=== PATIENT | male | born 1945 | race Caucasian/White ===

== ENCOUNTER 2016-06-16 13:31 | Outpatient (CLI) | payer MEDICARE, OTHER | END 2016-06-16 13:32 | disposition home or self-care (01) | DX: I48.91 Unspecified atrial fibrillation (principal) ==

== ENCOUNTER 2016-07-07 08:00 | Outpatient (CLI) | payer MEDICARE, OTHER | END 2016-07-07 23:59 | DX: I48.91 Unspecified atrial fibrillation (principal) ==

== ENCOUNTER 2016-07-18 14:14 | Outpatient (CLI) | payer MEDICARE, OTHER | END 2016-07-18 14:15 | disposition home or self-care (01) | DX: I42.9 Cardiomyopathy, unspecified (principal); I50.23 Acute on chronic systolic (congestive) heart failure; I50.20 Unspecified systolic (congestive) heart failure ==

== ENCOUNTER 2016-08-04 13:34 | Outpatient (CLI) | payer MEDICARE, OTHER | END 2016-08-04 13:35 | disposition home or self-care (01) | DX: I48.91 Unspecified atrial fibrillation (principal) ==

== ENCOUNTER 2016-08-18 13:36 | Outpatient (CLI) | payer MEDICARE, OTHER | END 2016-08-18 23:59 | DX: I48.91 Unspecified atrial fibrillation (principal) ==

== ENCOUNTER 2016-08-28 10:27 | Outpatient (CLI) | payer MEDICARE, OTHER | END 2016-08-28 10:28 | disposition home or self-care (01) | DX: I48.91 Unspecified atrial fibrillation (principal) ==

== ENCOUNTER 2016-09-01 13:50 | Outpatient (CLI) | payer MEDICARE, OTHER | END 2016-09-01 13:51 | disposition home or self-care (01) | DX: I48.91 Unspecified atrial fibrillation (principal) ==

== ENCOUNTER 2016-09-18 14:04 | Outpatient (CLI) | payer MEDICARE, OTHER | END 2016-09-18 23:59 | disposition home or self-care (01) | DX: I48.91 Unspecified atrial fibrillation (principal) ==

== ENCOUNTER 2016-09-25 15:04 | Outpatient (CLI) | payer MEDICARE, OTHER | END 2016-09-25 15:05 | disposition home or self-care (01) | DX: I48.91 Unspecified atrial fibrillation (principal) ==

== ENCOUNTER 2016-09-25 15:56 | Outpatient (CLI) | payer MEDICARE, OTHER | END 2016-09-25 15:57 | disposition critical access hospital (66) | LOC: EMS 15:56 | PROVIDERS: ATTEND Surgery | DX: R06.02 Shortness of breath (principal); R53.1 Weakness | CPT/HCPCS: A0425; A0429 ==

== ENCOUNTER 2016-09-25 16:20 | Emergency (ER) | payer MEDICARE, OTHER ==
[2016-09-25] MEDS ORDERED: IPRATROPIUM/ALBUTEROL 3 ML NEB INH STA (17:20)
[2016-09-25] MEDS ORDERED: IPRATROPIUM/ALBUTEROL 3 ML NEB INH ONE (17:41)
[2016-09-25] MEDS ORDERED: MAGNESIUM SULFATE 2 GRAM 50 ML IV ONE ×2 (18:40→18:45)
[2016-09-25] MEDS ORDERED: FUROSEMIDE 40 MG/4 ML VIAL IVP STA (18:41)
[2016-09-25] MEDS ORDERED: FUROSEMIDE 40 MG/4 ML VIAL ONE (18:44)
[2016-09-25] MEDS ORDERED: AZITHROMYCIN 250 MG TABLET PO STA (19:32)
[2016-09-25] MEDS ORDERED: DEXAMETHASONE 10 MG/ML VIAL IVP STA (19:32)
[2016-09-25] MEDS ORDERED: DEXAMETHASONE 10 MG/ML VIAL ONE (19:35)
[2016-09-25] MEDS ORDERED: AZITHROMYCIN 250 MG TABLET PO ONE (19:35)
== END 2016-09-25 20:29 | disposition home or self-care (01) ==
DX: J44.1 Chronic obstructive pulmonary disease with (acute) exacerbation (principal); R06.02 Shortness of breath; I11.0 Hypertensive heart disease with heart failure; I50.9 Heart failure, unspecified; E78.00 Pure hypercholesterolemia, unspecified; I25.10 Atherosclerotic heart disease of native coronary artery without angina pectoris; I25.2 Old myocardial infarction; G47.30 Sleep apnea, unspecified; E11.9 Type 2 diabetes mellitus without complications; Z79.84 Long term (current) use of oral hypoglycemic drugs; K21.9 Gastro-esophageal reflux disease without esophagitis; M19.90 Unspecified osteoarthritis, unspecified site; Z79.82 Long term (current) use of aspirin; F17.200 Nicotine dependence, unspecified, uncomplicated
CPT/HCPCS: 36415; 71020; 80053; 83690; 83735; 83880; 85025; 85610; 93005; 94640; 96374; 96375; 99284; A9270; J7620

== ENCOUNTER 2016-10-04 13:28 | Outpatient (CLI) | payer MEDICARE, OTHER | END 2016-10-04 13:29 | DX: I48.91 Unspecified atrial fibrillation (principal) ==

== ENCOUNTER 2016-10-11 15:20 | Outpatient (CLI) | payer MEDICARE, OTHER | END 2016-10-11 15:21 | LOC: LAB.N 15:20 | PROVIDERS: ATTEND Nurse Practitioner Gerontology | DX: I48.91 Unspecified atrial fibrillation (principal) | CPT/HCPCS: 85610 ==

== ENCOUNTER 2016-10-19 14:17 | Outpatient (CLI) | payer MEDICARE, OTHER | END 2016-10-19 14:18 | disposition home or self-care (01) | DX: J90 Pleural effusion, not elsewhere classified (principal); I48.91 Unspecified atrial fibrillation ==

== ENCOUNTER 2016-10-19 15:29 | Outpatient (CLI) | payer MEDICARE, OTHER | END 2016-10-19 15:30 | LOC: LAB.N 15:29 | PROVIDERS: ATTEND Nurse Practitioner Gerontology | DX: I48.91 Unspecified atrial fibrillation (principal) | CPT/HCPCS: 71020; 85610 ==

== ENCOUNTER 2016-10-27 13:59 | Outpatient (CLI) | payer MEDICARE, OTHER | END 2016-10-27 14:00 | disposition home or self-care (01) | LOC: LAB.N 13:59 | PROVIDERS: ATTEND Nurse Practitioner Gerontology | DX: I48.91 Unspecified atrial fibrillation (principal) | CPT/HCPCS: 85610 ==

== ENCOUNTER 2016-11-03 13:41 | Outpatient (CLI) | payer MEDICARE, OTHER | END 2016-11-03 13:42 | disposition home or self-care (01) | LOC: LAB.N 13:41 | PROVIDERS: ATTEND Nurse Practitioner Gerontology | DX: I48.91 Unspecified atrial fibrillation (principal) | CPT/HCPCS: 85610 ==

== ENCOUNTER 2016-11-30 13:49 | Outpatient (CLI) | payer MEDICARE, OTHER | END 2016-11-30 13:50 | LOC: LAB.N 13:49 | PROVIDERS: ATTEND Nurse Practitioner Gerontology | DX: I48.91 Unspecified atrial fibrillation (principal) | CPT/HCPCS: 85610 ==

== ENCOUNTER 2016-12-28 11:31 | Outpatient (CLI) | payer MEDICARE, OTHER ==
[2016-12-28 19:09] LABS: BASOPHILS # (AUTO) 0.1 10^3/uL (0.0-0.1); EOSINOPHILS # (AUTO) 0.3 10^3/uL (0.0-0.7); EOSINOPHILS % (AUTO) 3.3 %; HCT - HEMATOCRIT 38.8 % (42.0-52.0); HGB - HEMOGLOBIN 12.1 g/dL (14.0-18.0); LYMPHOCYTES # (AUTO) 1.4 10^3/uL (1.5-3.5); LYMPHOCYTES % (AUTO) 16.4 %; MEAN CORPUSCULAR HEMOGLOBIN 22.5 pg (27.0-31.0); MEAN CORPUSCULAR HGB CONC 31.3 g/dL (32.0-36.0); MEAN PLATELET VOLUME 7.8 fL (7.4-11.4); MONOCYTES # (AUTO) 0.7 10^3/uL (0.0-1.0); MONOCYTES % (AUTO) 8.5 %; NEUTROPHILS % (AUTO) 70.8 %; NUCLEATED RED BLOOD CELLS AUTO 0.1 /100WBC; RED BLOOD COUNT 5.38 10^6/uL (4.70-6.10); UNCORRECTED WHITE BLOOD COUNT 8.5 x10^3/uL; WHITE BLOOD COUNT 8.5 x10^3/uL (4.8-10.8)
[2016-12-28 19:15] LABS: HEMOGLOBIN A1C 1.56 g/dL
[2016-12-28 19:33] LABS: BILIRUBIN,TOTAL 0.4 mg/dL (0.2-1.0); BUN - BLOOD UREA NITROGEN 23 mg/dL (6-20); CALCIUM 9.3 mg/dL (8.5-10.3); CARBON DIOXIDE - CO2 33 mmol/L (21-32); CHLORIDE 95 mmol/L (101-111); CHOL/HDL RATIO 3.3 (<5.0); CHOLESTEROL 111 mg/dL; CREATININE 1.2 mg/dL (0.6-1.2); GFR - MDRD 60 (>89); GLUCOSE 288 mg/dL (70-100); HDL CHOLESTEROL 34 mg/dL; LDL/HDL RATIO 1.1 (<3.6); POTASSIUM 3.9 mmol/L (3.5-5.0); SODIUM 136 mmol/L (135-145); TOTAL PROTEIN 7.5 g/dL (6.7-8.2); TRIGLYCERIDES 201 mg/dL; VLDL CHOLESTEROL 40 mg/dL
== END 2016-12-28 11:32 ==
LOC: LAB.N 11:31
PROVIDERS: ATTEND Nurse Practitioner Gerontology
DX: E11.65 Type 2 diabetes mellitus with hyperglycemia (principal)
CPT/HCPCS: 36415; 80053; 80061; 82043; 83036; 84443; 85025; 85610

== ENCOUNTER 2017-01-24 13:22 | Outpatient (CLI) | payer MEDICARE, OTHER | END 2017-01-24 13:23 | LOC: LAB.N 13:22 | PROVIDERS: ATTEND Nurse Practitioner Gerontology | DX: I48.91 Unspecified atrial fibrillation (principal) | CPT/HCPCS: 85610 ==

== ENCOUNTER 2017-02-13 19:17 | Outpatient (CLI) | payer MEDICARE, OTHER | END 2017-02-13 19:18 | disposition critical access hospital (66) | LOC: EMS 19:17 | PROVIDERS: ATTEND Surgery | DX: R06.02 Shortness of breath (principal); R05 Cough; R53.1 Weakness; R29.6 Repeated falls | CPT/HCPCS: A0425; A0427 ==

== ENCOUNTER 2017-02-13 19:34 | Inpatient (IN) | payer MEDICARE, OTHER ==
[2017-02-13] MEDS ORDERED: SODIUM CHLORIDE FLUSH 0.9% 10 ML SYRINGE IVP ONE ×3 (19:49→22:40)
[2017-02-13] MEDS ORDERED: IPRATROPIUM/ALBUTEROL 3 ML NEB INH STA (20:07)
[2017-02-13] MEDS ORDERED: IPRATROPIUM/ALBUTEROL 3 ML NEB INH ONE ×2 (20:13→21:38)
[2017-02-13] MEDS ORDERED: ALBUTEROL NEB 2.5 MG/3 ML INH STA ×2 (21:23→22:50)
[2017-02-13 22:07] LABS: BASOPHILS # (AUTO) 0.1 10^3/uL (0.0-0.1); BASOPHILS % (AUTO) 1.2 %; EOSINOPHILS # (AUTO) 0.3 10^3/uL (0.0-0.7); EOSINOPHILS % (AUTO) 3.7 %; HCT - HEMATOCRIT 37.2 % (42.0-52.0); HGB - HEMOGLOBIN 11.7 g/dL (14.0-18.0); LYMPHOCYTES # (AUTO) 1.7 10^3/uL (1.5-3.5); LYMPHOCYTES % (AUTO) 18.2 %; MEAN CORPUSCULAR HEMOGLOBIN 22.1 pg (27.0-31.0); MEAN CORPUSCULAR HGB CONC 31.4 g/dL (32.0-36.0); MEAN CORPUSCULAR VOLUME 70.4 fL (80.0-94.0); MEAN PLATELET VOLUME 7.2 fL (7.4-11.4); MONOCYTES # (AUTO) 0.6 10^3/uL (0.0-1.0); MONOCYTES % (AUTO) 6.7 %; NEUTROPHILS # (AUTO) 6.5 10^3/uL (1.5-6.6); NEUTROPHILS % (AUTO) 70.2 %; RED BLOOD COUNT 5.29 10^6/uL (4.70-6.10); UNCORRECTED WHITE BLOOD COUNT 9.3 x10^3/uL; WHITE BLOOD COUNT 9.3 x10^3/uL (4.8-10.8)
[2017-02-13 22:11] LABS: BILIRUBIN,TOTAL 0.4 mg/dL (0.2-1.0); CALCIUM 9.1 mg/dL (8.5-10.3); CREATININE 0.9 mg/dL (0.6-1.2); MAGNESIUM 1.4 mg/dL (1.7-2.8); POTASSIUM 3.9 mmol/L (3.5-5.0); TOTAL PROTEIN 7.1 g/dL (6.7-8.2)
--- NOTE | 2017-02-13 22:16 | XRAY Preliminary Report ---
Exam: XR Chest 1 View IMPRESSION: Chronic findings. No acute disease. [facility] SITE ID: [id number]
--- NOTE | 2017-02-13 22:16 | XRAY Report ---
EXAM: CHEST RADIOGRAPHY EXAM DATE: 02/13/2017 08:55 PM. CLINICAL HISTORY: Short of breath. COMPARISON: 09/25/2016. TECHNIQUE: 1 view. FINDINGS: Lungs/Pleura: No definite localized infiltrate, consolidation, effusion, or pneumothorax. Mediastinum: Mild cardiomegaly, unchanged. Upper lobe vessels not distended. Other: Permanent pacemaker on the left with intact leads. Status post median sternotomy. Tracheostomy in place. Degenerative changes. IMPRESSION: Chronic findings. No acute disease. [facility] Referring Provider Line: [phone] SITE ID: [id number]
[2017-02-13] MEDS ORDERED: AZITHROMYCIN INJ 500 MG in SODIUM CHLORIDE 0.9% 250 ML IV STA (22:20)
[2017-02-13] MEDS ORDERED: DEXAMETHASONE 10 MG/ML VIAL IVP STA (22:20)
[2017-02-13] MEDS ORDERED: cefTRIAXone 1 GM VIAL IVP STA (22:20)
[2017-02-13] MEDS ORDERED: DEXAMETHASONE 10 MG/ML VIAL ONE (22:32)
[2017-02-13] MEDS ORDERED: cefTRIAXone 1 GM VIAL ONE (22:32)
--- NOTE | 2017-02-13 22:42 | ED Physician Documentation ---
PD HPI URI - Stated complaint Stated Complaint: SOA - Chief complaint Chief Complaint: Resp - History obtained from History obtained from: Patient, EMS - History of Present Illness Timing - onset: How many weeks ago (2 weeks of cough, myalgias, increased wheezing and dypsnea, much worse the past 2-3 days. With stein/white sputum now, some clogging at times of his trach. Has had trouble breathing the past 2 hours. Has used home MDI without improvement.) Timing duration: Days Timing details: Gradual onset, Still present Associated symptoms: Fever, Chills, Productive cough, Dyspnea, Bilateral edema. No: Sore throat, Hemoptysis, NVD, Unilateral edema Contributing factors: COPD / asthma. No: Sick contact, Travel, Immunocompromised Improves by: No: Rest Worsened by: Activity, Breathing Similar symptoms before: Diagnosis (bronchitis, COPD, pneumonia. He says he has not really had CHF but does have history of prior CABG.) Recently seen: Not recently seen Review of Systems Ten Systems: 10 systems reviewed and negative Constitutional: reports: Chills, Myalgias, Fatigue Nose: reports: Congestion Throat: denies: Sore throat Cardiac: reports: Pedal edema (chronic). denies: Chest pain / pressure, Palpitations, Calf pain Respiratory: reports: Dyspnea, Cough, Wheezing GI: denies: Abdominal Pain, Nausea, Vomiting, Diarrhea Musculoskeletal: reports: Extremity swelling Neurologic: reports: Generalized weakness (for several days, worsening.). denies: Focal weakness, Numbness, Near syncope Endocrine: denies: Weight loss Immunocompromised: denies: Immunocompromised PD PAST MEDICAL HISTORY - Past Medical History Cardiovascular: Hypertension, High cholesterol, Coronary artery disease, [place] Respiratory: COPD, Shortness of breath, Sleep apnea, Other (prior pharyngeal surgery with trach chronically. ) Neuro: None Endocrine/Autoimmune: Type 2 diabetes GI: GERD : None HEENT: Other Psych: None Musculoskeletal: Osteoarthritis Derm: None - Past Surgical History Past Surgical History: Yes General: Other Cardiovascular: CABG HEENT: Cataracts, Tracheostomy - Present Medications Home Medications: Ambulatory Orders Medication Instructions Recorded Confirmed Aspirin Chewable [St Pola 81 mg PO DAILY 10/15/12 06/10/13 Aspirin] Metformin HCl 1,000 mg PO BID 10/15/12 06/10/13 Methocarbamol 500 mg PO TID PRN 10/15/12 06/10/13 Metoprolol Tartrate 100 mg PO BID 10/15/12 06/10/13 Trazodone HCl 25 mg PO HS 10/15/12 06/10/13 glipiZIDE [Glucotrol] 15 mg PO BID 10/15/12 06/10/13 Atorvastatin Calcium [Lipitor] 80 mg PO HS 04/29/13 06/10/13 Omeprazole [PriLOSEC] 10 mg PO QDAC 04/29/13 06/10/13 oxyCODONE/ACET 5/325 [Percocet 5 1 each PO BID PRN 04/29/13 06/10/13 mg/325 mg] Budesonide/Formoterol Fumarate 2 puffs IH BID 06/10/13 06/10/13 [Symbicort 160-4.5 Mcg Inhaler] Ipratropium/Albuterol [Duoneb] 3 ml INH Q6H 06/10/13 06/10/13 Losartan [Cozaar] 50 mg PO DAILY 06/10/13 06/10/13 Azithromycin [Zithromax] 250 mg PO DAILY #6 tablet 09/25/16 Dexamethasone [Decadron] 4 mg PO DAILY #5 tablet 09/25/16 Magnesium Oxide [Mag Ox] 400 mg PO DAILY #15 tablet 09/25/16 - Allergies Allergies/Adverse Reactions: Allergies Allergy/AdvReac Type Severity Reaction Status Date / Time No Known Drug Allergies Allergy Verified 06/10/13 15:20 - Living Situation Living Situation: reports: Alone Living Arrangement: reports: At home - Social History Does the pt smoke?: Yes Smoking Status: Current every day smoker Does the pt drink ETOH?: No Does the pt have substance abuse?: No - Family History Family history: reports: Non contributory - POLST Patient has POLST: No PD ED PE NORMAL - Vitals Vital signs reviewed: Yes - General General: Alert and oriented X 3, Well developed/nourished, Other (has increased work of breathing with wheezing, coughing with stein/white sputum per trach. Some hoarseness of voice. ) - HEENT HEENT: Ears normal, Pharynx benign - Neck Neck: Supple, no meningeal sign, No adenopathy, No JVD - Cardiac Cardiac: RRR, No murmur - Respiratory Respiratory: No: Clear bilaterally (some coarse sounds right side mid lung taylor. Diffuse wheezing and tight sounds. No wet sounds at bases. ) - Abdomen Abdomen: Normal bowel sounds, Soft, Non tender - Male Male : Deferred - Rectal Rectal: Deferred - Back Back: No CVA TTP - Derm Derm: Normal color, Warm and dry - Extremities Extremities: No calf tenderness / cord, Other (1+ edema in both lower legs and ankles. ) - Neuro Neuro: Alert and oriented X 3, legal nurse consultant 2-12 intact, No sensory deficit, Other ( general weakness with 4/5 motor diffusely. ) - Psych Psych: Normal mood Results - Vitals Vitals: Vital Signs - 24 hr 02/13/17 19:35 Temperature 36.8 C Heart Rate 71 Respiratory 25 H Rate Blood Pressure 167/79 H O2 Saturation 93 Oxygen O2 Source Room air - Labs Labs: Laboratory Tests 02/13/17 21:22 WBC 9.3 RBC 5.29 Hgb 11.7 L Hct 37.2 L MCV 70.4 L MCH 22.1 L MCHC 31.4 L RDW 19.0 H Plt Count 341 MPV 7.2 L Neut # 6.5 Lymph # 1.7 [place] # 0.6 Eos # 0.3 Baso # 0.1 Absolute Nucleated RBC 0.00 Nucleated RBC % 0.0 - Rads (name of study) chest Radiology: Prelim report reviewed, EMP read contemporaneously (chronic changes, no acute infiltrates nor signs of pulmonary edema. ) PD MEDICAL DECISION MAKING - ED course Complexity details: reviewed results, re-evaluated patient (improved work of breathing after nebs, and able to be more comfortable. Still with stein/white sputum from trach with coughing. General weakness. Will need to be in hospital until improving with nebs/steroids/suction PRN, and given history of COPD with infection, also gave abx for increased probability of bacterial infection. ), considered differential, d/w patient, d/w business transformation consultant (Dr. Velázquez, hospitalist, who will see patient. ) Departure - Departure Disposition: ED Place in Observation Clinical Impression: Acute exacerbation of COPD with asthma, Bronchitis Condition: Stable Record reviewed to determine appropriate education?: Yes
[2017-02-13] MEDS ORDERED: METHOCARBAMOL 500 MG TABLET PO PRN (22:43)
[2017-02-13] MEDS ORDERED: ONDANSETRON 4 MG/2 ML VIAL IVP PRN (22:45)
[2017-02-13] MEDS ORDERED: oxyCODONE 5 MG TABLET PO PRN ×2 (22:45)
[2017-02-13] MEDS ORDERED: PROCHLORPERAZINE 10 MG/2 ML VIAL IVP PRN (22:45)
[2017-02-13] MEDS ORDERED: ACETAMINOPHEN 325 MG TABLET PO PRN (22:45)
[2017-02-13] MEDS: BUDESONIDE 0.5 MG/2 ML NEB INH SCH (23:00)
[2017-02-13] MEDS: IPRATROPIUM/ALBUTEROL 3 ML NEB INH SCH (23:00)
[2017-02-13] MEDS: FORMOTEROL FUMARATE NEB 20 MCG/2 ML INH SCH (23:00)
[2017-02-13] MEDS ORDERED: MAGNESIUM SULFATE 2 GRAM 2 GM/50 ML BAG IV SCH (23:16)
--- NOTE | 2017-02-13 23:32 | HISTORY & PHYSICAL EXAMINATION ---
Chief Complaint - Chief Complaint Chief Complaint: Generalized weakness History of Present Illness - Admitted From Admitted From:: Emergency Department - History Obtained From Records Reviewed: Yes History obtained from: Patient Exam Limitations: None - History of Present Illness HPI Comment/Other: Patient is a 71-year-old gentleman with a past medical history significant for hypertension, hyperlipidemia, coronary artery disease status post CABG, congestive heart failure with ejection fraction of 20% on last echo in 2013, COPD on 2-3 L of oxygen at night, history of laryngeal cancer status post tracheostomy, obstructive sleep apnea, diabetes and osteoarthritis who presented to the emergency department with a chief complaint of generalized weakness. The patient states that he was in his normal state of health until the last couple of days where he has been feeling increasingly weak. He states that he is fallen in his house several times. He states that he continues to lose his balance and has had poor coordination and difficulty walking. He also states that over the last 1-2 months he has had a chronic cough which has been worsening over the last few days. He also states that he has been short of air for about a month and this comes and goes but has been getting increasingly bad in the last 2 days. The patient denies any fevers or chills. He denies any headaches, blurred vision, runny nose, sore throat, chest pain, orthopnea, increased lower extremity swelling, abdominal pain, nausea, vomiting, diarrhea, urinary urgency, urinary frequency, dysuria, he admits to pain in his left hip but no other joint pains, muscle aches, joint swelling, changes in his appetite , weight loss or any focal neurologic deficits. On presentation to the emergency department the patient was afebrile he was hypertensive with a blood pressure of 167/79, he was tachypneic and he was saturating about 93% on room air. The patient did appear to be in some respiratory distress as he was quite tachypneic and was coughing up bringing up grayish white sputum in his trach. The patient underwent routine lab work which showed a normal WBC and normal electrolytes aside from a slightly decreased magnesium. On examination the patient was found to have profuse wheezing and was tachypneic with productive cough. The patient underwent a chest x-ray which showed no acute process. The patient was given several DuoNeb treatments, Decadron and a dose of antibiotics with ceftriaxone but he had only minimal improvement in his symptoms therefore he was placed in observation for COPD exacerbation and generalized weakness. History - Past Medical History Cardiovascular: reports: Congestive heart failure, Hypertension, High cholesterol, Coronary artery disease (Status post CABG in 04/2012), [place] Respiratory: reports: COPD, Shortness of breath, Sleep apnea, CPAP use, Other ( prior laryngeal surgery with trach chronically. ) Neuro: reports: None Endocrine/Autoimmune: reports: Type 2 diabetes GI: reports: GERD : reports: None HEENT: reports: Other Psych: reports: None Musculoskeletal: reports: Osteoarthritis Derm: reports: None MRSA Hx?: No Other Past Medical History: Laryngeal Cancer - Past Surgical History General: reports: Other Cardiovascular: reports: CABG HEENT: reports: Cataracts, Tracheostomy - Family & Social History Family History Comment/Other: Patient adopted and children are healthy Living arrangement: At home Living Situation: Alone Social History Notes: Patient states that he lives alone in [place] at a [facility]. He has 2 children 1 of whom lives in the area and the other one lives in [place]. The patient is , he states his in 2000 and currently he is alone and takes care of himself. He states he is able to care for his own trach and does not have any caregivers or but does have somebody help in cleaning the home. The patient states that he smokes 1-1-1/2 packs of cigarettes a day and has been smoking for over 50 years. He denies any alcohol or drug use. - Substance History Use: Uses substance without health or social issues: Tobacco Abuse: Recurrent use of substance despite neg consequences: NONE Dependence: Experiences withdrawal or developed tolerances: NONE Tobacco Details: Cigarettes - POLST Patient has POLST: No POLST Status: Full Code Meds/Allgy - Home Medications Home Medications: Ambulatory Orders Medication Instructions Recorded Confirmed Aspirin Chewable [St Pola 81 mg PO DAILY 10/15/12 06/10/13 Aspirin] Metformin HCl 1,000 mg PO BID 10/15/12 06/10/13 Methocarbamol 500 mg PO TID PRN 10/15/12 06/10/13 Metoprolol Tartrate 100 mg PO BID 10/15/12 06/10/13 Trazodone HCl 25 mg PO HS 10/15/12 06/10/13 glipiZIDE [Glucotrol] 15 mg PO BID 10/15/12 06/10/13 Atorvastatin Calcium [Lipitor] 80 mg PO HS 04/29/13 06/10/13 Omeprazole [PriLOSEC] 10 mg PO QDAC 04/29/13 06/10/13 oxyCODONE/ACET 5/325 [Percocet 5 1 each PO BID PRN 04/29/13 06/10/13 mg/325 mg] Budesonide/Formoterol Fumarate 2 puffs IH BID 06/10/13 06/10/13 [Symbicort 160-4.5 Mcg Inhaler] Ipratropium/Albuterol [Duoneb] 3 ml INH Q6H 06/10/13 06/10/13 Losartan [Cozaar] 50 mg PO DAILY 06/10/13 06/10/13 Azithromycin [Zithromax] 250 mg PO DAILY #6 tablet 09/25/16 Dexamethasone [Decadron] 4 mg PO DAILY #5 tablet 09/25/16 Magnesium Oxide [Mag Ox] 400 mg PO DAILY #15 tablet 09/25/16 - Allergies Allergies/Adverse Reactions: Allergies Allergy/AdvReac Type Severity Reaction Status Date / Time No Known Drug Allergies Allergy Verified 06/10/13 15:20 Review of Systems - Other Findings Other Findings: A comprehensive review of systems was performed the pertinent positives and negatives are stated above in the HPI and the remainder of the review of systems is negative. Exam - Vital Signs Vital Signs: Vital Signs x48h Temp Pulse Resp BP Pulse Ox 02/13/17 19:35 36.8 C 71 25 H 167/79 H 93 - Physical Exam General Appearance: positive: Alert, Mild distress (Tachypneic appear short of breath), Other (Patient has a trach) Eyes Bilateral: positive: Normal inspection, PERRL, EOMI, No lid inflammation, No scleral icterus ENT: positive: ENT inspection nml, Pharynx nml, No signs of dehydration. negative: Purulent nasal drainage, Pharyngeal erythema, Oral lesions Neck: positive: Nml inspection, Thyroid nml, No JVD, Trachea midline, Other ( Trach in place). negative: Thyromegaly, Lymphadenopathy (R), Lymphadenopathy (L ) Respiratory: positive: Chest non-tender, Wheezes (Diffuse, Expiratory), Rales ( At the bases), Other (Tachypneic and in mild respiratory distress). negative: Rhonchi Cardiovascular: positive: Regular rate & rhythm, No murmur, No gallop Peripheral Pulses: positive: 2+ Abdomen: positive: Non-tender, No organomegaly, Nml bowel sounds, No distention. negative: Guarding, Rebound, Hepatomegaly Back: positive: Nml inspection. negative: CVA tenderness (R), CVA tenderness (L ) Skin: positive: Color nml, No rash, Dry. negative: Cyanosis, Pallor Extremities: positive: Non-tender, Full ROM, Nml appearance, Pedal edema ( Bilateral 1+) Neurologic/Psychiatric: positive: Oriented x3, CN's nml (2-12), Motor nml, Sensation nml, Mood/affect nml Conclusion/Plan - Problem List (1) COPD exacerbation Conclusion/Plan: On presentation the patient was tachypneic, coughing with sputum production and wheezing on examination. Etiology of patient's COPD exacerbation appears to be a URI as the patient has been having increasing cough with sputum production and shortness of air for the last several days. In conjunction with this the patient is also had generalized weakness and had multiple falls at home. The patient's chest x-ray did not reveal a infiltrate to suggest a pneumonia. The patient did not have fever or leukocytosis. Patient likely has a URI that is causing his generalized weakness and this COPD exacerbation. Despite several nebulizer treatments in the emergency department and steroids patient did not have significant improvement in his symptoms and therefore was placed in observation. Plan: Duo nebs around the clock 24 hours and as needed Solu-Medrol 40 mg IV 3 times daily Azithromycin p.o. daily Supplemental oxygen as needed Pulmicort and formoterol twice daily (2) Generalized weakness Conclusion/Plan: Patient presented with generalized weakness at home. The patient states that he is fallen 3 times in the last 24 hours. He states that is due to him losing his balance and having poor coordination. The patient did not appear to have any focal neurologic deficits on presentation. He had no leukocytosis or fevers. The patient did appear to have a COPD exacerbation and appeared to likely have an upper respiratory infection. Patient is likely become weak due to his upper respiratory infection and shortness of air from COPD exacerbation. Plan: Patient will be assessed by physical therapy in the morning the patient does use a walker at home but has been having difficulties and falling recently. We suspect this is likely due to his ongoing infection but would like a full assessment from physical therapy. If the patient's balance and weakness does not improve with treatment of his COPD then we will need to consider a CT scan of his head. The patient does not appear to be dehydrated and given his history of CHF we will hold off on giving any IV fluid. (3) Diabetes Conclusion/Plan: The patient has a history of diabetes and is on oral medications at home. On presentation patient's blood glucose is 109 which is well controlled. Plan: Patient was placed on sliding scale insulin while he is hospitalized Patient was placed on a diabetic diet We will monitor patient's blood glucose before meals nightly We will check a hemoglobin A1c Qualifiers: Diabetes mellitus type: type 2 Diabetes mellitus complication status: without complication Diabetes mellitus terminal supervisor insulin use: without terminal supervisor use Qualified Code(s): E11.9 - Type 2 diabetes mellitus without complications (4) Hypomagnesemia Conclusion/Plan: The patient's magnesium is low on presentation We will replace patient's magnesium and continue to monitor. (5) Hypertension Conclusion/Plan: Patient's blood pressure is elevated on presentation. Patient is on Cozaar and metoprolol at home. Plan: We will continue patient's home medications while he is hospitalized Continue to monitor blood pressure closely Qualifiers: Hypertension type: essential hypertension Qualified Code(s): I10 - Essential (primary) hypertension (6) Congestive heart failure Conclusion/Plan: Patient has history of congestive heart failure he had an echo done in 2013 which showed an ejection fraction of 20%. Patient is on optimal medications with Cozaar and metoprolol Patient does not appear to be in congestive heart failure exacerbation as he has no evidence of CHF on his chest x-ray, only minimal crackles at the bases on examination and only mild edema on exam. Plan: We will get an echocardiogram in the morning as he does not have an echo in our system since 2013 Continue losartan and metoprolol Monitor closely Qualifiers: Congestive heart failure type: systolic Congestive heart failure chronicity : chronic Qualified Code(s): I50.22 - Chronic systolic (congestive) heart failure (7) History of coronary artery disease Conclusion/Plan: Patient has history of coronary artery disease status post CABG Patient is not having any chest pain and appears to be stable Patient is on optimal treatment with aspirin, statin, metoprolol and losartan Continue home medications. (8) Prophylactic use of low molecular weight heparin for venous thromboembolism (VTE) Conclusion/Plan: Patient was placed on Lovenox while he is hospitalized for DVT prophylaxis. - Lab Results Lab results reviewed: Yes Fish Bones: 02/13/17 21:22 02/13/17 21:47 Other Lab Results: Laboratory Results WBC 9.3 x10^3/uL (4.8-10.8) 02/13/17 21: RBC 5.29 10^6/uL (4.70-6.10) 02/13/17 21:22 Hgb 11.7 g/dL (14.0-18.0) L 02/13/17 21: Hct 37.2 % (42.0-52.0) L 02/13/17 21:22 MCV 70.4 fL (80.0-94.0) L 02/13/17 21:22 MCH 22.1 pg (27.0-31.0) L 02/13/17 21: MCHC 31.4 g/dL (32.0-36.0) L 02/13/17 21:22 RDW 19.0 % (12.0-15.0) H 02/13/17 21:22 Plt Count 341 10^3/uL (130-450) 02/13/17 21:22 MPV 7.2 fL (7.4-11.4) L 02/13/17 21:22 Neut # 6.5 10^3/uL (1.5-6.6) 02/13/17 21: Lymph # 1.7 10^3/uL (1.5-3.5) 02/13/17 21:22 [place] # 0.6 10^3/uL (0.0-1.0) 02/13/17 21:22 Eos # 0.3 10^3/uL (0.0-0.7) 02/13/17 21:22 Baso # 0.1 10^3/uL (0.0-0.1) 02/13/17 21:22 Absolute Nucleated RBC 0.00 x10^3/uL 02/13/17 21:22 Nucleated RBC % 0.0 /100WBC 02/13/17 21:22 Sodium 137 mmol/L (135-145) 02/13/17 21:47 Potassium 3.9 mmol/L (3.5-5.0) 02/13/17 21:47 Chloride 100 mmol/L (101-111) L 02/13/17 21:47 Carbon Dioxide 28 mmol/L (21-32) 02/13/17 21:47 Anion Gap 9.0 (6-13) 02/13/17 21:47 BUN 13 mg/dL (6-20) 02/13/17 21:47 Creatinine 0.9 mg/dL (0.6-1.2) 02/13/17 21:47 Estimated GFR (MDRD) 83 (>89) L 02/13/17 21:47 Glucose 109 mg/dL (70-100) H 02/13/17 21:47 Lactic Acid 1.2 mmol/L (0.5-2.2) 02/13/17 21:47 Calcium 9.1 mg/dL (8.5-10.3) 02/13/17 21:47 Magnesium 1.4 mg/dL (1.7-2.8) L 02/13/17 21:47 Total Bilirubin 0.4 mg/dL (0.2-1.0) 02/13/17 21:47 AST 22 IU/L (10-42) 02/13/17 21:47 ALT 20 IU/L (10-60) 02/13/17 21:47 Alkaline Phosphatase 65 IU/L (42-121) 02/13/17 21:47 B-Natriuretic Peptide 90 pg/mL (5-100) 02/13/17 21:47 Total Protein 7.1 g/dL (6.7-8.2) 02/13/17 21:47 Albumin 3.5 g/dL (3.2-5.5) 02/13/17 21:47 Globulin 3.6 g/dL (2.1-4.2) 02/13/17 21:47 Albumin/Globulin Ratio 1.0 (1.0-2.2) 02/13/17 21:47 Lipase 31 U/L (22-51) 02/13/17 21:47 - Diagnostic Imaging Results Diagnostic Imaging Results: positive: Final report reviewed Diagnostic Imaging Results Comments: Chest x-ray Impression: Chronic findings, no acute disease. Issues/Core Measures - Anticipated LOS Anticipated Stay Length: Less than 2 midnights - DVT/VTE - Prophylaxis VTE/DVT Prophylaxis med ordered at admit?: Yes
[2017-02-14] MEDS: traZODone 50 MG TABLET PO SCH ×2 (00:56→21:37)
[2017-02-14 05:42] LABS: BASOPHILS % (AUTO) 0.7 %; EOSINOPHILS % (AUTO) 0.1 %; HCT - HEMATOCRIT 38.5 % (42.0-52.0); HGB - HEMOGLOBIN 11.8 g/dL (14.0-18.0); LYMPHOCYTES # (AUTO) 0.4 10^3/uL (1.5-3.5); LYMPHOCYTES % (AUTO) 5.8 %; MEAN CORPUSCULAR HEMOGLOBIN 21.9 pg (27.0-31.0); MEAN CORPUSCULAR HGB CONC 30.8 g/dL (32.0-36.0); MEAN CORPUSCULAR VOLUME 71.1 fL (80.0-94.0); MEAN PLATELET VOLUME 7.2 fL (7.4-11.4); MONOCYTES # (AUTO) 0.1 10^3/uL (0.0-1.0); MONOCYTES % (AUTO) 1.2 %; NEUTROPHILS # (AUTO) 5.8 10^3/uL (1.5-6.6); NEUTROPHILS % (AUTO) 92.2 %; RED BLOOD COUNT 5.41 10^6/uL (4.70-6.10); RED CELL DISTRIBUTION WIDTH 19.3 % (12.0-15.0); UNCORRECTED WHITE BLOOD COUNT 6.3 x10^3/uL; WHITE BLOOD COUNT 6.3 x10^3/uL (4.8-10.8)
[2017-02-14 05:49] LABS: CALCIUM 8.7 mg/dL (8.5-10.3); CREATININE 0.8 mg/dL (0.6-1.2); POTASSIUM 4.4 mmol/L (3.5-5.0)
[2017-02-14] MEDS: methylPREDNISolone SUCCINATE 40 MG/ML VIAL IVP SCH ×3 (06:16→21:37)
[2017-02-14] MEDS: SODIUM CHLORIDE FLUSH 0.9% 10 ML SYRINGE IVP SCH ×3 (06:16→16:12)
[2017-02-14] MEDS: IPRATROPIUM/ALBUTEROL 3 ML NEB INH SCH ×4 (07:16→21:50)
[2017-02-14] MEDS: BUDESONIDE 0.5 MG/2 ML NEB INH SCH ×2 (07:16→21:50)
[2017-02-14] MEDS: FORMOTEROL FUMARATE NEB 20 MCG/2 ML INH SCH ×2 (07:16→21:50)
[2017-02-14 07:59] LABS: HEMOGLOBIN A1C 1.42 g/dL
[2017-02-14] MEDS ORDERED: INSULIN ASPART 300 UNIT/3 ML PEN SUBQ SCH ×3 (08:00→17:00)
[2017-02-14] MEDS: ASPIRIN CHEW 81 MG TABLET PO SCH (08:45)
[2017-02-14] MEDS: MAGNESIUM OXIDE 400 MG TABLET PO SCH (08:46)
[2017-02-14] MEDS: METOPROLOL TARTRATE 50 MG TABLET PO SCH ×2 (08:46→21:36)
[2017-02-14] MEDS: LOSARTAN 50 MG TABLET PO SCH (08:46)
[2017-02-14] MEDS: ENOXAPARIN 40 MG/0.4 ML SYRINGE SUBQ SCH (08:47)
[2017-02-14] MEDS: FAMOTIDINE 20 MG TABLET PO SCH (08:47)
[2017-02-14] MEDS: POLYETHYLENE GLYCOL 3350 17 GM PACKET PO SCH (08:55)
[2017-02-14] MEDS ORDERED: AZITHROMYCIN 250 MG TABLET PO SCH (09:00)
[2017-02-14 14:47] LABS: BILIRUBIN,URINE NEGATIVE (NEGATIVE)
[2017-02-14 14:56] LABS: WBC,URINE 0-3 /HPF (0-3)
[2017-02-14 14:57] LABS: UR CULTURE IF IND NOT INDICATED
--- NOTE | 2017-02-14 15:18 | PROVIDER PROGRESS NOTE ---
Assessment/Plan - Problem List (1) COPD exacerbation Assessment/Plan: The patient feels no better since placed in OBS and started on iv steroids and inhalers and supplemental O2 His exam shows marked bronchospasm and cannot R/O cardiac asthma Will change Pt to inpatient, continue O2 and steroids and inhalers Will change po zithromax to iv, higher dose and add iv Ceftriaxone for sputum sample (+) for GNB and GPC Recheck CXR (2) Congestive heart failure Qualifiers: Congestive heart failure type: systolic Congestive heart failure chronicity : chronic Qualified Code(s): I50.22 - Chronic systolic (congestive) heart failure Assessment/Plan: The LVEF was 20% by Echo done several mos ago. 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: without terminal computer operator use Qualified Code(s): E11.9 - Type 2 diabetes mellitus without complications Assessment/Plan: Higher fingerstick glu results since on high dose iv steroids Will increase to moderate SS Insulin coverage and continue diet and his po diabetic meds (5) Hypomagnesemia Assessment/Plan: Corrected with replacement Since Lsix to start, will follow Mg level (6) Hypertension Qualifiers: Hypertension type: essential hypertension Qualified Code(s): I10 - Essential (primary) hypertension Assessment/Plan: Stable on current meds (7) History of coronary artery disease Assessment/Plan: No c/o angina but will check troponins since Diabetics get silent MIs Follow EKG for changes - Current Meds Current Meds: Current Medications Generic Name Dose Route Start Last Admin Trade Name Freq PRN Reason Stop Dose Admin Albuterol/Ipratropium 3 ml 02/13/17 23:00 02/14/17 07:16 Duoneb INH 02/14/17 22:59 3 ml RTQID RONA Administration Aspirin 81 mg 02/14/17 09:00 02/14/17 08:45 [place] Aspirin PO 81 mg DAILY RONA Administration Budesonide 0.5 mg 02/13/17 23:00 02/14/17 07:16 Pulmicort INH 0.5 mg RTBID RONA Administration Enoxaparin Sodium 40 mg 02/14/17 09:00 02/14/17 08:47 Lovenox SUBQ 40 mg DAILY RONA Administration Famotidine 20 mg 02/14/17 09:00 02/14/17 08:47 Pepcid PO 20 mg DAILY RONA Administration Formoterol Fumarate 20 mcg 02/13/17 23:00 02/14/17 07:16 Perforomist INH 20 mcg RTBID RONA Administration Insulin Aspart 1 - 9 unit 02/14/17 12:00 02/14/17 11:29 Novolog SUBQ 10 unit 0800,1200,1700,2100 RONA Administration Protocol Losartan Potassium 50 mg 02/14/17 09:00 02/14/17 08:46 Cozaar PO 50 mg DAILY RONA Administration Magnesium Oxide 400 mg 02/14/17 09:00 02/14/17 08:46 Mag Ox PO 400 mg DAILY RONA Administration Methylprednisolone 40 mg 02/14/17 06:00 02/14/17 14:23 Solu-Medrol (40mg Vial) IVP 40 mg TID RONA Administration Metoprolol Tartrate 100 mg 02/14/17 09:00 02/14/17 08:46 Lopressor PO 100 mg BID RONA Administration Polyethylene Glycol 17 gm 02/14/17 09:00 02/14/17 08:55 Miralax PO Not Given DAILY RONA Sodium Chloride 10 ml 02/14/17 06:00 02/14/17 14:23 Normal Saline Flush 0.9% IVP 10 ml Q8HR RONA Administration Trazodone HCl 25 mg 02/13/17 23:00 02/14/17 00:56 Desyrel PO 25 mg HS RONA Administration - Lab Result Fish Bone Diagrams: 02/14/17 05:20 02/14/17 05:20 - Additional Planning My Orders: My Active Orders 02/14/17 BNP - B-NATRIURETIC PEPTIDE [IAI] Routine 02/14/17 11:23 Blood Glucose Checks - Eating [RC] 0800,1200,1700,2100 Initiate Hypoglycemia Protocol [RC] .protocol 02/14/17 12:00 Insulin Aspart [NovoLOG] 1 - 9 unit SUBQ 0800,1200,1700,2100 02/14/17 15:00 TROPONIN I [IAI] Q6H 02/14/17 15:03 ED Orthostatic VS ONCE 02/14/17 16:00 Azithromycin Inj [Zithromax Inj] 500 mg Sodium Chloride 0.9% [Normal Saline 0.9%] 250 ml IV DAILY FUROSEMIDE INJ 20mg VIAL [LASIX INJ 20mg VIAL] 20 mg IVP BIDDIURETIC cefTRIAXone [Rocephin] 1 gm Sodium Chloride 0.9% Minibag [Normal Saline 0.9% Minibag] 100 ml IV DAILY 02/14/17 21:00 TROPONIN I [IAI] Q6H 02/15/17 05:00 BNP - B-NATRIURETIC PEPTIDE [IAI] Routine Subjective - Subjective Patient Reports: Cough, Dizzines, Shortness of Breath Nursing Reports: Shortness of Breath, Other (Glu in 400's since on iv steroids) Objective Vital Signs: Vital Signs - 24 hr 02/13/17 02/14/17 02/14/17 23:15 00:04 04:23 Temperature 37.0 C 36.8 C Heart Rate 65 Heart Rate [ 78 75 Brachial] Respiratory 18 18 18 Rate Blood Pressure Blood Pressure 115/40 L 120/52 L [Right Brachial artery] Blood Pressure [Supine] O2 Saturation 96 96 02/14/17 02/14/17 02/14/17 07:24 08:17 08:46 Temperature 36.8 C Heart Rate 68 Heart Rate [ 69 Brachial] Respiratory 16 20 Rate Blood Pressure 136/93 H Blood Pressure 136/93 H [Right Brachial artery] Blood Pressure [Supine] O2 Saturation 93 02/14/17 10:10 Temperature Heart Rate Heart Rate [ Brachial] Respiratory Rate Blood Pressure Blood Pressure [Right Brachial artery] Blood Pressure 145/72 H [Supine] O2 Saturation Oxygen O2 Source trach mask I&O (Last 24 Hrs): Intake and Output Totals x24h 02/12/17 02/13/17 02/14/17 23:59 23:59 23:59 Intake Total 480 Output Total 525 Balance -45 General: Moderate distress (Respiratory) HEENT: Mucous membr. moist/pink Neck: Other (Trach site clean On O2 via trach mask) Neuro: Alert Cardiovascular: Regular rate, Other (1-2/6 systolic murmur at base, honking No gallop or RV heave) Respiratory: Wheezes, Other (Very tight, minimal air entry) Abdomen: Other (Obese, cannot R/O organomegaly or ascites) Extremities: Other (1+ edema to knees No venous changes Very pale Tender over L thigh, no ecchymosis or sores) - Results Results: Laboratory Results WBC 6.3 x10^3/uL (4.8-10.8) 02/14/17 05:20 RBC 5.41 10^6/uL (4.70-6.10) 02/14/17 05:20 Hgb 11.8 g/dL (14.0-18.0) L 02/14/17 05:20 Hct 38.5 % (42.0-52.0) L 02/14/17 05:20 MCV 71.1 fL (80.0-94.0) L 02/14/17 05:20 MCH 21.9 pg (27.0-31.0) L 02/14/17 05:20 MCHC 30.8 g/dL (32.0-36.0) L 02/14/17 05:20 RDW 19.3 % (12.0-15.0) H 02/14/17 05:20 Plt Count 338 10^3/uL (130-450) 02/14/17 05:20 MPV 7.2 fL (7.4-11.4) L 02/14/17 05:20 Neut # 5.8 10^3/uL (1.5-6.6) 02/14/17 05:20 Lymph # 0.4 10^3/uL (1.5-3.5) L 02/14/17 05:20 [place] # 0.1 10^3/uL (0.0-1.0) 02/14/17 05:20 Eos # 0.0 10^3/uL (0.0-0.7) 02/14/17 05:20 Baso # 0.0 10^3/uL (0.0-0.1) 02/14/17 05:20 Absolute Nucleated RBC 0.00 x10^3/uL 02/14/17 05:20 Nucleated RBC % 0.0 /100WBC 02/14/17 05:20 Sodium 135 mmol/L (135-145) 02/14/17 05:20 Potassium 4.4 mmol/L (3.5-5.0) 02/14/17 05:20 Chloride 102 mmol/L (101-111) 02/14/17 05:20 Carbon Dioxide 25 mmol/L (21-32) 02/14/17 05:20 Anion Gap 8.0 (6-13) 02/14/17 05:20 BUN 16 mg/dL (6-20) 02/14/17 05:20 Creatinine 0.8 mg/dL (0.6-1.2) 02/14/17 05:20 Estimated GFR (MDRD) 95 (>89) 02/14/17 05:20 Glucose 233 mg/dL (70-100) H 02/14/17 05:20 POC Whole Bld Glucose 434 mg/dL (70 - 100) H 02/14/17 11:19 Glycated Hemoglobin 12.5 % (4.6-6.2) H 02/14/17 05:20 Estim Average Glucose 312 (70-100) H 02/14/17 05:20 Lactic Acid 1.2 mmol/L (0.5-2.2) 02/13/17 21:47 Calcium 8.7 mg/dL (8.5-10.3) 02/14/17 05:20 Magnesium 1.8 mg/dL (1.7-2.8) 02/14/17 13:10 Total Bilirubin 0.4 mg/dL (0.2-1.0) 02/13/17 21:47 AST 22 IU/L (10-42) 02/13/17 21:47 ALT 20 IU/L (10-60) 02/13/17 21:47 Alkaline Phosphatase 65 IU/L (42-121) 02/13/17 21:47 B-Natriuretic Peptide 90 pg/mL (5-100) 02/13/17 21:47 Total Protein 7.1 g/dL (6.7-8.2) 02/13/17 21:47 Albumin 3.5 g/dL (3.2-5.5) 02/13/17 21:47 Globulin 3.6 g/dL (2.1-4.2) 02/13/17 21:47 Albumin/Globulin Ratio 1.0 (1.0-2.2) 02/13/17 21:47 Lipase 31 U/L (22-51) 02/13/17 21:47 Urine Color YELLOW 02/14/17 14:08 Urine Clarity CLEAR (CLEAR) 02/14/17 14:08 Urine pH 6.0 PH (5.0-7.5) 02/14/17 14:08 Ur Specific [place] 1.010 (1.002-1.030) 02/14/17 14:08 Urine Protein NEGATIVE mg/dL (NEGATIVE) 02/14/17 14:08 Urine Glucose (UA) >=1000 mg/dL (NEGATIVE) H 02/14/17 14:08 Urine Ketones NEGATIVE mg/dL (NEGATIVE) 02/14/17 14:08 Urine Occult Blood NEGATIVE (NEGATIVE) 02/14/17 14:08 Urine Nitrite NEGATIVE (NEGATIVE) 02/14/17 14:08 Urine Bilirubin NEGATIVE (NEGATIVE) 02/14/17 14:08 Urine Urobilinogen 0.2 (NORMAL) E.U./dL (NORMAL) 02/14/17 14:08 Ur Leukocyte Esterase NEGATIVE (NEGATIVE) 02/14/17 14:08 Urine RBC 0-5 /HPF (0-5) 02/14/17 14:08 Urine WBC 0-3 /HPF (0-3) 02/14/17 14:08 Ur Squamous Epith Cells FEW Squamous (<= Few) 02/14/17 14:08 Urine Bacteria Rare /HPF (None Seen) 02/14/17 14:08 Urine Mucus Few Strands 02/14/17 14:08 Urine Culture Comments NOT INDICATED 02/14/17 14:08 - Procedures Procedures: Procedures CATARAC PHACOEMULS/ASPIR (03/13/13) INSERT LENS AT CATAR EXT (03/13/13)
[2017-02-14] MEDS ORDERED: SODIUM CHLORIDE 0.9% 250 ML IV ONE (15:54)
[2017-02-14] MEDS ORDERED: AZITHROMYCIN INJ 500 MG in SODIUM CHLORIDE 0.9% 250 ML IV SCH (16:00)
[2017-02-14] MEDS ORDERED: cefTRIAXone 1 GM in SODIUM CHLORIDE 0.9% MINIBAG 100 ML IV SCH ×2 (16:00→18:00)
[2017-02-14] MEDS: FUROSEMIDE 20 MG/2 ML VIAL IVP SCH (16:12)
[2017-02-14] MEDS: ATORVASTATIN 40 MG TABLET PO SCH (21:40)
[2017-02-14] MEDS: INSULIN ASPART 300 UNIT/3 ML PEN SUBQ SCH (21:45)
[2017-02-14] MEDS: INSULIN GLARGINE 300 UNIT/3 ML PEN SUBQ SCH (22:59)
[2017-02-15 06:13] LABS: BASOPHILS % (AUTO) 0.5 %; HCT - HEMATOCRIT 36.3 % (42.0-52.0); HGB - HEMOGLOBIN 11.3 g/dL (14.0-18.0); LYMPHOCYTES # (AUTO) 0.7 10^3/uL (1.5-3.5); MEAN CORPUSCULAR HEMOGLOBIN 22.1 pg (27.0-31.0); MEAN CORPUSCULAR VOLUME 71.2 fL (80.0-94.0); MEAN PLATELET VOLUME 7.4 fL (7.4-11.4); MONOCYTES # (AUTO) 0.5 10^3/uL (0.0-1.0); MONOCYTES % (AUTO) 5.7 %; NEUTROPHILS # (AUTO) 6.8 10^3/uL (1.5-6.6); NEUTROPHILS % (AUTO) 84.8 %; NUCLEATED RED BLOOD CELLS AUTO 0.1 /100WBC; RED CELL DISTRIBUTION WIDTH 19.3 % (12.0-15.0)
[2017-02-15] MEDS: methylPREDNISolone SUCCINATE 40 MG/ML VIAL IVP SCH ×3 (06:15→20:52)
[2017-02-15] MEDS: FUROSEMIDE 20 MG/2 ML VIAL IVP SCH ×2 (06:15→13:43)
[2017-02-15] MEDS: SODIUM CHLORIDE FLUSH 0.9% 10 ML SYRINGE IVP SCH ×3 (06:15→20:53)
[2017-02-15 06:17] LABS: CALCIUM 8.6 mg/dL (8.5-10.3); CREATININE 0.8 mg/dL (0.6-1.2); POTASSIUM 4.2 mmol/L (3.5-5.0)
[2017-02-15] MEDS: BUDESONIDE 0.5 MG/2 ML NEB INH SCH ×2 (07:51→20:12)
[2017-02-15] MEDS: FORMOTEROL FUMARATE NEB 20 MCG/2 ML INH SCH ×2 (07:51→20:12)
[2017-02-15] MEDS: ENOXAPARIN 40 MG/0.4 ML SYRINGE SUBQ SCH (08:26)
[2017-02-15] MEDS: ASPIRIN CHEW 81 MG TABLET PO SCH (08:26)
[2017-02-15] MEDS: INSULIN ASPART 300 UNIT/3 ML PEN SUBQ SCH ×4 (08:26→20:54)
[2017-02-15] MEDS: METOPROLOL TARTRATE 50 MG TABLET PO SCH ×2 (08:27→20:50)
[2017-02-15] MEDS: LOSARTAN 50 MG TABLET PO SCH (08:27)
[2017-02-15] MEDS: MAGNESIUM OXIDE 400 MG TABLET PO SCH (08:27)
[2017-02-15] MEDS: FAMOTIDINE 20 MG TABLET PO SCH (08:27)
[2017-02-15] MEDS: POLYETHYLENE GLYCOL 3350 17 GM PACKET PO SCH (08:32)
[2017-02-15] MEDS: ERTAPENEM 1 GM in SODIUM CHLORIDE 0.9% MINIBAG 100 ML IV SCH ×2 (11:12→13:43)
--- NOTE | 2017-02-15 12:08 | XRAY Report ---
TWO-VIEW CHEST: 02/15/2017 CLINICAL INDICATION: CHF, pneumonia. COMPARISON: 02/13/2017 FINDINGS: Frontal and lateral views of the chest demonstrate changes of previous cardiac surgery. L eft subclavian dual-chamber pacemaker and tracheostomy are stable. The cardiac silhouette is mildly enlarged. No pulmonary vascular congestion is seen. There has been interval development of a left e ffusion with basilar air-space disease, compatible with pneumonia. No pneumothorax. IMPRESSION: LEFT EFFUSION WITH BASILAR AIR-SPACE DISEASE, COMPATIBLE WITH PNEUMONIA. JOB #: [id number] EXT JOB #:[id number]
[2017-02-15] MEDS: SODIUM CHLORIDE FLUSH 0.9% 10 ML SYRINGE IVP PRN (13:43)
--- NOTE | 2017-02-15 14:21 | PROVIDER PROGRESS NOTE ---
Assessment/Plan - Problem List (1) COPD exacerbation Assessment/Plan: Imptroved resoiratory status with nowheezing and less SOB. Cough persists. Will recheck a 2-view CXR for pneumonia. Hgb and MCV low. 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 Continue sliding scale Insulin coverage. (6) Hypertension Qualifiers: Hypertension type: essential hypertension Qualified Code(s): I10 - Essential (primary) hypertension Assessment/Plan: Stable on current meds - Current Meds Current Meds: Current Medications Generic Name Dose Route Start Last Admin Trade Name Freq PRN Reason Stop Dose Admin Aspirin 81 mg 02/14/17 09:00 02/15/17 08:26 [place] Aspirin PO 81 mg DAILY RONA Administration Atorvastatin Calcium 80 mg 02/14/17 21:00 02/14/17 21:40 Lipitor PO 80 mg HS RONA Administration Budesonide 0.5 mg 02/13/17 23:00 02/15/17 07:51 Pulmicort INH 0.5 mg RTBID RONA Administration Enoxaparin Sodium 40 mg 02/14/17 09:00 02/15/17 08:26 Lovenox SUBQ 40 mg DAILY RONA Administration Famotidine 20 mg 02/14/17 09:00 02/15/17 08:27 Pepcid PO 20 mg DAILY RONA Administration Formoterol Fumarate 20 mcg 02/13/17 23:00 02/15/17 07:51 Perforomist INH 20 mcg RTBID RONA Administration Furosemide 20 mg 02/14/17 16:00 02/15/17 13:43 Lasix Inj 20mg Vial IVP 20 mg BIDDIURETIC RONA Administration Ertapenem 1 gm/ Sodium 100 mls @ 200 mls/hr 02/15/17 11:00 02/15/17 13:43 Chloride IV 200 mls/hr DAILY RONA Administration Insulin Aspart 3 - 11 unit 02/15/17 08:00 02/15/17 12:07 Novolog SUBQ 11 unit 0800,1200,1700,2100 RONA Administration Protocol Insulin Glargine 10 unit 02/14/17 23:00 02/14/17 22:59 Lantus Solostar SUBQ 10 unit QPM RONA Administration Losartan Potassium 50 mg 02/14/17 09:00 02/15/17 08:27 Cozaar PO 50 mg DAILY RONA Administration Magnesium Oxide 400 mg 02/14/17 09:00 02/15/17 08:27 Mag Ox PO 400 mg DAILY RONA Administration Methylprednisolone 40 mg 02/14/17 06:00 02/15/17 13:43 Solu-Medrol (40mg Vial) IVP 40 mg TID RONA Administration Metoprolol Tartrate 100 mg 02/14/17 09:00 02/15/17 08:27 Lopressor PO 100 mg BID RONA Administration Polyethylene Glycol 17 gm 02/14/17 09:00 02/15/17 08:32 Miralax PO Not Given DAILY RONA Sodium Chloride 10 ml 02/13/17 22:45 02/15/17 13:43 Normal Saline Flush 0.9% IVP 10 ml PRN PRN Administration NEEDED PER PROVIDER ORDERS Sodium Chloride 10 ml 02/14/17 06:00 02/15/17 11:13 Normal Saline Flush 0.9% IVP 10 ml Q8HR RONA Administration Trazodone HCl 25 mg 02/13/17 23:00 02/14/17 21:37 Desyrel PO 25 mg HS RONA Administration - Lab Result Fish Bone Diagrams: 02/15/17 05:30 02/15/17 05:30 - Additional Planning My Orders: My Active Orders 02/14/17 16:00 FUROSEMIDE INJ 20mg VIAL [LASIX INJ 20mg VIAL] 20 mg IVP BIDDIURETIC 02/15/17 05:30 VITAMIN D,25-OH,TOTAL,IA [REFLAB] Routine 02/15/17 11:00 Ertapenem [INVanz] 1 gm Sodium Chloride 0.9% Minibag [Normal Saline 0.9% Minibag] 100 ml IV DAILY 02/15/17 17:00 metFORMIN [Glucophage] 1,000 mg PO BIDWM Subjective - Subjective Patient Reports: Feeling Better, Other (Still lightheaded, but less so) Objective Vital Signs: Vital Signs - 24 hr 02/14/17 02/14/17 02/14/17 16:04 16:23 20:39 Temperature 36.3 C L 36.2 C L Heart Rate 72 Heart Rate [ 67 69 Brachial] Respiratory 18 24 20 Rate Blood Pressure Blood Pressure 112/60 [Left Brachial artery] Blood Pressure 135/64 H [Right Brachial artery] O2 Saturation 93 94 02/14/17 02/15/17 02/15/17 21:50 00:39 07:30 Temperature 36.3 C L 36.5 C Heart Rate 71 Heart Rate [ 75 68 Brachial] Respiratory 18 20 20 Rate Blood Pressure Blood Pressure [Left Brachial artery] Blood Pressure 142/67 H 134/59 H [Right Brachial artery] O2 Saturation 94 92 02/15/17 02/15/17 08:00 08:27 Temperature Heart Rate 70 Heart Rate [ Brachial] Respiratory 18 Rate Blood Pressure 134/59 H Blood Pressure [Left Brachial artery] Blood Pressure [Right Brachial artery] O2 Saturation Oxygen O2 Source [place] I&O (Last 24 Hrs): Intake and Output Totals x24h 02/13/17 02/14/17 02/15/17 23:59 23:59 23:59 Intake Total 1470 640 Output Total 400 200 Balance 1070 440 General: Alert, Oriented x3 HEENT: Mucous membr. moist/pink Neck: Supple, No JVD Neuro: Other (Trach site clean, trach O2 mask in place) Cardiovascular: Regular rate, No murmurs Respiratory: Breath sounds nml, Other (Increased AP diameter) Abdomen: Other (Obese, cannot R/O ascites or organomegaly) Extremities: No edema - Results Results: Laboratory Results WBC 8.0 x10^3/uL (4.8-10.8) 02/15/17 05:30 RBC 5.10 10^6/uL (4.70-6.10) 02/15/17 05:30 Hgb 11.3 g/dL (14.0-18.0) L 02/15/17 05:30 Hct 36.3 % (42.0-52.0) L 02/15/17 05:30 MCV 71.2 fL (80.0-94.0) L 02/15/17 05:30 MCH 22.1 pg (27.0-31.0) L 02/15/17 05:30 MCHC 31.0 g/dL (32.0-36.0) L 02/15/17 05:30 RDW 19.3 % (12.0-15.0) H 02/15/17 05:30 Plt Count 338 10^3/uL (130-450) 02/15/17 05:30 MPV 7.4 fL (7.4-11.4) 02/15/17 05:30 Neut # 6.8 10^3/uL (1.5-6.6) H 02/15/17 05:30 Lymph # 0.7 10^3/uL (1.5-3.5) L 02/15/17 05:30 [place] # 0.5 10^3/uL (0.0-1.0) 02/15/17 05:30 Eos # 0.0 10^3/uL (0.0-0.7) 02/15/17 05:30 Baso # 0.0 10^3/uL (0.0-0.1) 02/15/17 05:30 Absolute Nucleated RBC 0.01 x10^3/uL 02/15/17 05:30 Nucleated RBC % 0.1 /100WBC 02/15/17 05:30 Sodium 136 mmol/L (135-145) 02/15/17 05:30 Potassium 4.2 mmol/L (3.5-5.0) 02/15/17 05:30 Chloride 103 mmol/L (101-111) 02/15/17 05:30 Carbon Dioxide 25 mmol/L (21-32) 02/15/17 05:30 Anion Gap 8.0 (6-13) 02/15/17 05:30 BUN 22 mg/dL (6-20) H 02/15/17 05:30 Creatinine 0.8 mg/dL (0.6-1.2) 02/15/17 05:30 Estimated GFR (MDRD) 95 (>89) 02/15/17 05:30 Glucose 262 mg/dL (70-100) H 02/15/17 05:30 POC Whole Bld Glucose 355 mg/dL (70 - 100) H 02/15/17 11:11 Glycated Hemoglobin 12.5 % (4.6-6.2) H 02/14/17 05:20 Estim Average Glucose 312 (70-100) H 02/14/17 05:20 Lactic Acid 1.2 mmol/L (0.5-2.2) 02/13/17 21:47 Calcium 8.6 mg/dL (8.5-10.3) 02/15/17 05:30 Magnesium 1.8 mg/dL (1.7-2.8) 02/14/17 13:10 Total Bilirubin 0.4 mg/dL (0.2-1.0) 02/13/17 21:47 AST 22 IU/L (10-42) 02/13/17 21:47 ALT 20 IU/L (10-60) 02/13/17 21:47 Alkaline Phosphatase 65 IU/L (42-121) 02/13/17 21:47 Troponin I < 0.04 ng/mL (<0.49) 02/14/17 20:58 B-Natriuretic Peptide 163 pg/mL (5-100) H 02/15/17 05:30 Total Protein 7.1 g/dL (6.7-8.2) 02/13/17 21:47 Albumin 3.5 g/dL (3.2-5.5) 02/13/17 21:47 Globulin 3.6 g/dL (2.1-4.2) 02/13/17 21:47 Albumin/Globulin Ratio 1.0 (1.0-2.2) 02/13/17 21:47 Lipase 31 U/L (22-51) 02/13/17 21:47 TSH 0.76 uIU/mL (0.34-5.60) 02/15/17 05:30 Urine Color YELLOW 02/14/17 14:08 Urine Clarity CLEAR (CLEAR) 02/14/17 14:08 Urine pH 6.0 PH (5.0-7.5) 02/14/17 14:08 Ur Specific [place] 1.010 (1.002-1.030) 02/14/17 14:08 Urine Protein NEGATIVE mg/dL (NEGATIVE) 02/14/17 14:08 Urine Glucose (UA) >=1000 mg/dL (NEGATIVE) H 02/14/17 14:08 Urine Ketones NEGATIVE mg/dL (NEGATIVE) 02/14/17 14:08 Urine Occult Blood NEGATIVE (NEGATIVE) 02/14/17 14:08 Urine Nitrite NEGATIVE (NEGATIVE) 02/14/17 14:08 Urine Bilirubin NEGATIVE (NEGATIVE) 02/14/17 14:08 Urine Urobilinogen 0.2 (NORMAL) E.U./dL (NORMAL) 02/14/17 14:08 Ur Leukocyte Esterase NEGATIVE (NEGATIVE) 02/14/17 14:08 Urine RBC 0-5 /HPF (0-5) 02/14/17 14:08 Urine WBC 0-3 /HPF (0-3) 02/14/17 14:08 Ur Squamous Epith Cells FEW Squamous (<= Few) 02/14/17 14:08 Urine Bacteria Rare /HPF (None Seen) 02/14/17 14:08 Urine Mucus Few Strands 02/14/17 14:08 Urine Culture Comments NOT INDICATED 02/14/17 14:08 - Procedures Procedures: Procedures CATARAC PHACOEMULS/ASPIR (03/13/13) INSERT LENS AT CATAR EXT (03/13/13)
[2017-02-15 15:36] LABS: IRON 15 ug/dL (45-182); TOTAL IRON BINDING CAPACITY 440 ug/dL (250-450); TRANSFERRIN 314 mg/dL (180-329)
[2017-02-15 15:54] LABS: FOLATE 12.45 ng/mL (5.90 - >24.8)
[2017-02-15] MEDS: metFORMIN 500 MG TABLET PO SCH (16:59)
[2017-02-15] MEDS: IPRATROPIUM/ALBUTEROL 3 ML NEB INH PRN (20:12)
[2017-02-15] MEDS: ATORVASTATIN 40 MG TABLET PO SCH (20:50)
[2017-02-15] MEDS: traZODone 50 MG TABLET PO SCH (20:51)
[2017-02-15] MEDS: INSULIN GLARGINE 300 UNIT/3 ML PEN SUBQ SCH (20:53)
[2017-02-16] MEDS: FUROSEMIDE 20 MG/2 ML VIAL IVP SCH ×2 (05:45→14:53)
[2017-02-16] MEDS: SODIUM CHLORIDE FLUSH 0.9% 10 ML SYRINGE IVP SCH ×3 (05:45→20:39)
[2017-02-16] MEDS: methylPREDNISolone SUCCINATE 40 MG/ML VIAL IVP SCH ×3 (05:45→20:38)
[2017-02-16 06:12] LABS: BASOPHILS % (AUTO) 0.1 %; HCT - HEMATOCRIT 37.4 % (42.0-52.0); HGB - HEMOGLOBIN 11.7 g/dL (14.0-18.0); LYMPHOCYTES # (AUTO) 0.9 10^3/uL (1.5-3.5); LYMPHOCYTES % (AUTO) 9.5 %; MEAN CORPUSCULAR HEMOGLOBIN 21.9 pg (27.0-31.0); MEAN CORPUSCULAR HGB CONC 31.2 g/dL (32.0-36.0); MEAN CORPUSCULAR VOLUME 70.3 fL (80.0-94.0); MEAN PLATELET VOLUME 7.4 fL (7.4-11.4); MONOCYTES # (AUTO) 0.5 10^3/uL (0.0-1.0); MONOCYTES % (AUTO) 5.1 %; NEUTROPHILS # (AUTO) 7.9 10^3/uL (1.5-6.6); NEUTROPHILS % (AUTO) 85.3 %; RED BLOOD COUNT 5.32 10^6/uL (4.70-6.10); RED CELL DISTRIBUTION WIDTH 19.5 % (12.0-15.0); UNCORRECTED WHITE BLOOD COUNT 9.2 x10^3/uL; WHITE BLOOD COUNT 9.2 x10^3/uL (4.8-10.8)
[2017-02-16 06:14] LABS: CALCIUM 8.7 mg/dL (8.5-10.3); CREATININE 0.8 mg/dL (0.6-1.2); POTASSIUM 4.1 mmol/L (3.5-5.0)
[2017-02-16] MEDS: INSULIN ASPART 300 UNIT/3 ML PEN SUBQ SCH ×4 (08:14→20:37)
[2017-02-16] MEDS: metFORMIN 500 MG TABLET PO SCH ×2 (08:14→16:47)
[2017-02-16] MEDS ORDERED: SENNA 8.6 MG TABLET PO SCH (09:00)
[2017-02-16] MEDS ORDERED: DOCUSATE SODIUM 250 MG CAPSULE PO SCH (09:00)
[2017-02-16] MEDS: IPRATROPIUM/ALBUTEROL 3 ML NEB INH PRN (10:00)
[2017-02-16] MEDS: FORMOTEROL FUMARATE NEB 20 MCG/2 ML INH SCH ×2 (10:00→20:40)
[2017-02-16] MEDS: BUDESONIDE 0.5 MG/2 ML NEB INH SCH ×2 (10:00→20:40)
[2017-02-16] MEDS: ASPIRIN CHEW 81 MG TABLET PO SCH (10:57)
[2017-02-16] MEDS: MAGNESIUM OXIDE 400 MG TABLET PO SCH (10:58)
[2017-02-16] MEDS: LOSARTAN 50 MG TABLET PO SCH (10:58)
[2017-02-16] MEDS: ENOXAPARIN 40 MG/0.4 ML SYRINGE SUBQ SCH (10:58)
[2017-02-16] MEDS: FAMOTIDINE 20 MG TABLET PO SCH (10:58)
[2017-02-16] MEDS: ERTAPENEM 1 GM in SODIUM CHLORIDE 0.9% MINIBAG 100 ML IV SCH (10:59)
[2017-02-16] MEDS: METOPROLOL TARTRATE 50 MG TABLET PO SCH ×2 (11:00→20:38)
[2017-02-16] MEDS: POLYETHYLENE GLYCOL 3350 17 GM PACKET PO SCH (11:01)
[2017-02-16] MEDS: AMITRIPTYLINE 10 MG TABLET PO SCH ×2 (16:47→20:38)
--- NOTE | 2017-02-16 18:11 | PROVIDER PROGRESS NOTE ---
Assessment/Plan - Problem List (1) COPD exacerbation Assessment/Plan: with pneumonia. Improving on current management Will assess O2 sat on R.A. at rest and with activity tomorrow, for poss DCh tomorrow (2) Congestive heart failure Qualifiers: Congestive heart failure type: systolic Congestive heart failure chronicity : chronic Qualified Code(s): I50.22 - Chronic systolic (congestive) heart failure Assessment/Plan: with pleural effusion. Improving on current management (3) PBA (pseudobulbar affect) Assessment/Plan: Tearfullness suggests PBA. Consider CT of head. 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 Qualified Code(s): E11.9 - Type 2 diabetes mellitus without complications Assessment/Plan: Glu 200-300 on steroids Continue present management (7) Hypomagnesemia Assessment/Plan: Resolved (8) Hypertension Qualifiers: Hypertension type: essential hypertension Qualified Code(s): I10 - Essential (primary) hypertension Assessment/Plan: Stable (9) History of coronary artery disease Assessment/Plan: Stable - Current Meds Current Meds: Current Medications Generic Name Dose Route Start Last Admin Trade Name Freq PRN Reason Stop Dose Admin Albuterol/Ipratropium 3 ml 02/13/17 22:45 02/16/17 10:00 Duoneb INH 3 ml RTQID PRN Administration Wheezing Amitriptyline HCl 10 mg 02/16/17 16:00 02/16/17 16:47 Elavil PO 10 mg QPM RONA Administration Aspirin 81 mg 02/14/17 09:00 02/16/17 10:57 [facility] [place] Aspirin PO 81 mg DAILY RONA Administration Atorvastatin Calcium 80 mg 02/14/17 21:00 02/15/17 20:50 Lipitor PO 80 mg HS RONA Administration Budesonide 0.5 mg 02/13/17 23:00 02/16/17 10:00 Pulmicort INH 0.5 mg RTBID RONA Administration Enoxaparin Sodium 40 mg 02/14/17 09:00 02/16/17 10:58 Lovenox SUBQ 40 mg DAILY RONA Administration Famotidine 20 mg 02/14/17 09:00 02/16/17 10:58 Pepcid PO 20 mg DAILY RONA Administration Formoterol Fumarate 20 mcg 02/13/17 23:00 02/16/17 10:00 Perforomist INH 20 mcg RTBID RONA Administration Furosemide 20 mg 02/14/17 16:00 02/16/17 14:53 Lasix Inj 20mg Vial IVP 20 mg BIDDIURETIC RONA Administration Ertapenem 1 gm/ Sodium 100 mls @ 200 mls/hr 02/15/17 11:00 02/16/17 11:25 Chloride IV Infused DAILY RONA Infusion Insulin Aspart 3 - 11 unit 02/15/17 08:00 02/16/17 16:48 Novolog SUBQ 9 unit 0800,1200,1700,2100 RONA Administration Protocol Insulin Glargine 10 unit 02/14/17 23:00 02/15/17 20:53 Lantus Solostar SUBQ 10 unit QPM RONA Administration Losartan Potassium 50 mg 02/14/17 09:00 02/16/17 10:58 Cozaar PO 50 mg DAILY RONA Administration Magnesium Oxide 400 mg 02/14/17 09:00 02/16/17 10:58 Mag Ox PO 400 mg DAILY RONA Administration Metformin HCl 1,000 mg 02/15/17 17:00 02/16/17 16:47 Glucophage PO 1,000 mg BIDWM RONA Administration Methylprednisolone 40 mg 02/14/17 06:00 02/16/17 14:53 Solu-Medrol (40mg Vial) IVP 40 mg TID RONA Administration Metoprolol Tartrate 100 mg 02/14/17 09:00 02/16/17 11:00 Lopressor PO 100 mg BID RONA Administration Oxycodone HCl 10 mg 02/13/17 22:45 02/16/17 04:43 Roxicodone PO 10 mg Q4HR PRN Administration Pain 8 to 10 Polyethylene Glycol 17 gm 02/14/17 09:00 02/16/17 11:01 Miralax PO 17 gm DAILY RONA Administration Sodium Chloride 10 ml 02/13/17 22:45 02/15/17 13:43 Normal Saline Flush 0.9% IVP 10 ml PRN PRN Administration NEEDED PER PROVIDER ORDERS Sodium Chloride 10 ml 02/14/17 06:00 02/16/17 14:53 Normal Saline Flush 0.9% IVP 10 ml Q8HR RONA Administration Trazodone HCl 25 mg 02/13/17 23:00 02/15/17 20:51 Desyrel PO 25 mg HS RONA Administration - Lab Result Fish Bone Diagrams: 02/16/17 05:25 02/16/17 05:25 - Additional Planning My Orders: My Active Orders 02/15/17 17:00 metFORMIN [Glucophage] 1,000 mg PO BIDWM 02/16/17 16:00 Amitriptyline [Elavil] 10 mg PO QPM Subjective - Subjective Patient Reports: Feeling Better Nursing Reports: Other (Pt is tearful several times today) Objective Vital Signs: Vital Signs - 24 hr 02/15/17 02/15/17 02/16/17 20:13 20:50 00:02 Temperature 36.3 C L Heart Rate 72 Heart Rate [ 63 Brachial] Respiratory 18 20 Rate Blood Pressure 137/63 H Blood Pressure [Left Brachial artery] Blood Pressure 143/73 H [Right Brachial artery] O2 Saturation 96 02/16/17 02/16/17 02/16/17 07:53 10:00 15:52 Temperature 36.5 C 36.5 C Heart Rate 68 Heart Rate [ 60 61 Brachial] Respiratory 18 18 18 Rate Blood Pressure Blood Pressure 132/66 H [Left Brachial artery] Blood Pressure 137/64 H [Right Brachial artery] O2 Saturation 94 94 02/16/17 17:30 Temperature Heart Rate 74 Heart Rate [ Brachial] Respiratory 18 Rate Blood Pressure Blood Pressure [Left Brachial artery] Blood Pressure [Right Brachial artery] O2 Saturation Oxygen O2 Source [place] I&O (Last 24 Hrs): Intake and Output Totals x24h 02/14/17 02/15/17 02/16/17 23:59 23:59 23:59 Intake Total 1470 1340 1110 Output Total 400 1100 1075 Balance 1070 240 35 General: Alert HEENT: Mucous membr. moist/pink Neck: Other (Trached) Cardiovascular: Other (Distant HS) Respiratory: Breath sounds nml Abdomen: Other (Obese) Extremities: No edema - Results Results: Laboratory Results WBC 9.2 x10^3/uL (4.8-10.8) 02/16/17 05:25 RBC 5.32 10^6/uL (4.70-6.10) 02/16/17 05:25 Hgb 11.7 g/dL (14.0-18.0) L 02/16/17 05:25 Hct 37.4 % (42.0-52.0) L 02/16/17 05:25 MCV 70.3 fL (80.0-94.0) L 02/16/17 05:25 MCH 21.9 pg (27.0-31.0) L 02/16/17 05:25 MCHC 31.2 g/dL (32.0-36.0) L 02/16/17 05:25 RDW 19.5 % (12.0-15.0) H 02/16/17 05:25 Plt Count 381 10^3/uL (130-450) 02/16/17 05:25 MPV 7.4 fL (7.4-11.4) 02/16/17 05:25 Neut # 7.9 10^3/uL (1.5-6.6) H 02/16/17 05:25 Lymph # 0.9 10^3/uL (1.5-3.5) L 02/16/17 05:25 [place] # 0.5 10^3/uL (0.0-1.0) 02/16/17 05:25 Eos # 0.0 10^3/uL (0.0-0.7) 02/16/17 05:25 Baso # 0.0 10^3/uL (0.0-0.1) 02/16/17 05:25 Absolute Nucleated RBC 0.00 x10^3/uL 02/16/17 05:25 Nucleated RBC % 0.0 /100WBC 02/16/17 05:25 Sodium 135 mmol/L (135-145) 02/16/17 05:25 Potassium 4.1 mmol/L (3.5-5.0) 02/16/17 05:25 Chloride 101 mmol/L (101-111) 02/16/17 05:25 Carbon Dioxide 25 mmol/L (21-32) 02/16/17 05:25 Anion Gap 9.0 (6-13) 02/16/17 05:25 BUN 27 mg/dL (6-20) H 02/16/17 05:25 Creatinine 0.8 mg/dL (0.6-1.2) 02/16/17 05:25 Estimated GFR (MDRD) 95 (>89) 02/16/17 05:25 Glucose 238 mg/dL (70-100) H 02/16/17 05:25 POC Whole Bld Glucose 313 mg/dL (70 - 100) H 02/16/17 16:31 Glycated Hemoglobin 12.5 % (4.6-6.2) H 02/14/17 05:20 Estim Average Glucose 312 (70-100) H 02/14/17 05:20 Lactic Acid 1.2 mmol/L (0.5-2.2) 02/13/17 21:47 Calcium 8.7 mg/dL (8.5-10.3) 02/16/17 05:25 Magnesium 1.8 mg/dL (1.7-2.8) 02/14/17 13:10 Iron 15 ug/dL (45-182) L 02/15/17 14:55 TIBC 440 ug/dL (250-450) 02/15/17 14:55 % Saturation 3 % (20-50) L 02/15/17 14:55 Transferrin 314 mg/dL (180-329) 02/15/17 14:55 Total Bilirubin 0.4 mg/dL (0.2-1.0) 02/13/17 21:47 AST 22 IU/L (10-42) 02/13/17 21:47 ALT 20 IU/L (10-60) 02/13/17 21:47 Alkaline Phosphatase 65 IU/L (42-121) 02/13/17 21:47 Troponin I < 0.04 ng/mL (<0.49) 02/14/17 20:58 B-Natriuretic Peptide 163 pg/mL (5-100) H 02/15/17 05:30 Total Protein 7.1 g/dL (6.7-8.2) 02/13/17 21:47 Albumin 3.5 g/dL (3.2-5.5) 02/13/17 21:47 Globulin 3.6 g/dL (2.1-4.2) 02/13/17 21:47 Albumin/Globulin Ratio 1.0 (1.0-2.2) 02/13/17 21:47 Lipase 31 U/L (22-51) 02/13/17 21:47 Vitamin B12 160 pg/mL (180-914) L 02/15/17 14:55 Folate 12.45 ng/mL (5.90 - >24.8) 02/15/17 14:55 TSH 0.76 uIU/mL (0.34-5.60) 02/15/17 05:30 Urine Color YELLOW 02/14/17 14:08 Urine Clarity CLEAR (CLEAR) 02/14/17 14:08 Urine pH 6.0 PH (5.0-7.5) 02/14/17 14:08 Ur Specific [place] 1.010 (1.002-1.030) 02/14/17 14:08 Urine Protein NEGATIVE mg/dL (NEGATIVE) 02/14/17 14:08 Urine Glucose (UA) >=1000 mg/dL (NEGATIVE) H 02/14/17 14:08 Urine Ketones NEGATIVE mg/dL (NEGATIVE) 02/14/17 14:08 Urine Occult Blood NEGATIVE (NEGATIVE) 02/14/17 14:08 Urine Nitrite NEGATIVE (NEGATIVE) 02/14/17 14:08 Urine Bilirubin NEGATIVE (NEGATIVE) 02/14/17 14:08 Urine Urobilinogen 0.2 (NORMAL) E.U./dL (NORMAL) 02/14/17 14:08 Ur Leukocyte Esterase NEGATIVE (NEGATIVE) 02/14/17 14:08 Urine RBC 0-5 /HPF (0-5) 02/14/17 14:08 Urine WBC 0-3 /HPF (0-3) 02/14/17 14:08 Ur Squamous Epith Cells FEW Squamous (<= Few) 02/14/17 14:08 Urine Bacteria Rare /HPF (None Seen) 02/14/17 14:08 Urine Mucus Few Strands 02/14/17 14:08 Urine Culture Comments NOT INDICATED 02/14/17 14:08 - Procedures Procedures: Procedures CATARAC PHACOEMULS/ASPIR (03/13/13) INSERT LENS AT CATAR EXT (03/13/13)
[2017-02-16] MEDS: INSULIN GLARGINE 300 UNIT/3 ML PEN SUBQ SCH (20:37)
[2017-02-16] MEDS: traZODone 50 MG TABLET PO SCH (20:38)
[2017-02-16] MEDS: ATORVASTATIN 40 MG TABLET PO SCH (20:38)
[2017-02-17] MEDS: FUROSEMIDE 20 MG/2 ML VIAL IVP SCH ×2 (06:05→14:40)
[2017-02-17] MEDS: SODIUM CHLORIDE FLUSH 0.9% 10 ML SYRINGE IVP SCH ×3 (06:05→21:19)
[2017-02-17] MEDS: SODIUM CHLORIDE FLUSH 0.9% 10 ML SYRINGE IVP PRN ×2 (06:05→10:05)
[2017-02-17] MEDS: methylPREDNISolone SUCCINATE 40 MG/ML VIAL IVP SCH ×3 (06:05→21:19)
[2017-02-17] MEDS: metFORMIN 500 MG TABLET PO SCH ×2 (08:19→17:14)
[2017-02-17] MEDS: INSULIN ASPART 300 UNIT/3 ML PEN SUBQ SCH ×4 (08:21→21:19)
[2017-02-17] MEDS: IPRATROPIUM/ALBUTEROL 3 ML NEB INH PRN ×2 (08:45→19:50)
[2017-02-17] MEDS: BUDESONIDE 0.5 MG/2 ML NEB INH SCH ×2 (08:45→19:50)
[2017-02-17] MEDS: FORMOTEROL FUMARATE NEB 20 MCG/2 ML INH SCH ×2 (08:45→19:50)
[2017-02-17] MEDS ORDERED: DOCUSATE SODIUM 250 MG CAPSULE PO SCH (09:00)
[2017-02-17] MEDS ORDERED: SENNA 8.6 MG TABLET PO SCH (09:00)
[2017-02-17] MEDS: MAGNESIUM OXIDE 400 MG TABLET PO SCH (10:02)
[2017-02-17] MEDS ORDERED: ERTAPENEM 1 GM VIAL ONE (10:02)
[2017-02-17] MEDS: FAMOTIDINE 20 MG TABLET PO SCH (10:03)
[2017-02-17] MEDS: METOPROLOL TARTRATE 50 MG TABLET PO SCH ×2 (10:03→21:19)
[2017-02-17] MEDS: ASPIRIN CHEW 81 MG TABLET PO SCH (10:03)
[2017-02-17] MEDS ORDERED: SODIUM CHLORIDE FLUSH 0.9% 10 ML SYRINGE IVP ONE (10:04)
[2017-02-17] MEDS: LOSARTAN 50 MG TABLET PO SCH (10:04)
[2017-02-17] MEDS: ERTAPENEM 1 GM in SODIUM CHLORIDE 0.9% MINIBAG 100 ML IV SCH (10:04)
[2017-02-17] MEDS: POLYETHYLENE GLYCOL 3350 17 GM PACKET PO SCH (10:05)
[2017-02-17] MEDS: ENOXAPARIN 40 MG/0.4 ML SYRINGE SUBQ SCH (10:05)
--- NOTE | 2017-02-17 13:15 | CT Preliminary Report ---
Exam: CT Head W/O IMPRESSION: Generalized age-related cortical atrophic changes without evidence of acute intracranial abnormality. No significant interval change. [facility] SITE ID: [id number]
--- NOTE | 2017-02-17 13:18 | CT Report ---
EXAM: CT HEAD EXAM DATE: 02/17/2017 01:01 PM. CLINICAL HISTORY: Ataxia, dbl vision, trouble finding words. COMPARISON: 10/16/2012. TECHNIQUE: Multiaxial CT images were obtained from the foramen magnum to the vertex. IV contrast: Non e. Reformats: Coronal. In accordance with CT protocol optimization, one or more of the following dose reduction techniques w ere utilized for this exam: automated exposure control, adjustment of mA and/or KV based on patient s ize, or use of iterative reconstructive technique. FINDINGS: Parenchyma: No intraparenchymal hemorrhage. No evidence of mass, midline shift, or CT findings of acu te infarction. Adams-white differentiation is distinct. Extraaxial Spaces: Normal for age. No subdural or epidural collections identified. Ventricles: The ventricles and cortical sulci are enlarged, consistent with age-related tissue loss. Sinuses: Imaged paranasal sinuses, orbits, and mastoids show no significant abnormality. Bones: No evidence of fracture or calvarial defect. Other: Diffuse chronic microangiopathic white matter changes are evident. IMPRESSION: Generalized age-related cortical atrophic changes without evidence of acute intracranial abnormality. No significant interval change. [facility] Referring Provider Line: [phone] SITE ID: [id number]
[2017-02-17] MEDS: AMITRIPTYLINE 10 MG TABLET PO SCH (21:19)
[2017-02-17] MEDS: traZODone 50 MG TABLET PO SCH (21:19)
[2017-02-17] MEDS: ATORVASTATIN 40 MG TABLET PO SCH (21:19)
[2017-02-17] MEDS: INSULIN GLARGINE 300 UNIT/3 ML PEN SUBQ SCH (21:20)
--- NOTE | 2017-02-17 22:03 | PROVIDER PROGRESS NOTE ---
Assessment/Plan - Problem List (1) COPD exacerbation Assessment/Plan: Slowly improving resoiratory status Continue management (2) PBA (pseudobulbar affect) Assessment/Plan: CT ordered due to ataxia, double vision , word -finding difficulty and tearfullness, which showed no acute event Continue Amytriptyline (3) Anemia Qualifiers: Anemia type: iron deficiency Assessment/Plan: On replacement now (4) Generalized weakness Assessment/Plan: Slowly improving, working with PT (5) Diabetes Qualifiers: Diabetes mellitus type: type 2 Diabetes mellitus complication status: without complication Diabetes mellitus fpc insulin use: without fpc use Qualified Code(s): E11.9 - Type 2 diabetes mellitus without complications Assessment/Plan: HBA1c very high at 12.6 and Pt requires Insulin here, while on steroids Will maximize oral treatment and Pt may need new home Insulin and injection teaching (7) Hypertension Qualifiers: Hypertension type: essential hypertension Qualified Code(s): I10 - Essential (primary) hypertension (9) Congestive heart failure Qualifiers: Congestive heart failure type: systolic Congestive heart failure chronicity : chronic Qualified Code(s): I50.22 - Chronic systolic (congestive) heart failure - Current Meds Current Meds: Current Medications Generic Name Dose Route Start Last Admin Trade Name Freq PRN Reason Stop Dose Admin Albuterol/Ipratropium 3 ml 02/13/17 22:45 02/17/17 08:45 Duoneb INH 3 ml RTQID PRN Administration Wheezing Amitriptyline HCl 10 mg 02/16/17 16:00 02/17/17 21:19 Elavil PO 10 mg QPM RONA Administration Aspirin 81 mg 02/14/17 09:00 02/17/17 10:03 [facility] [place] Aspirin PO 81 mg DAILY ORNA Administration Atorvastatin Calcium 80 mg 02/14/17 21:00 02/17/17 21:19 Lipitor PO 80 mg HS RONA Administration Budesonide 0.5 mg 02/13/17 23:00 02/17/17 08:45 Pulmicort INH 0.5 mg RTBID RONA Administration Enoxaparin Sodium 40 mg 02/14/17 09:00 02/17/17 10:05 Lovenox SUBQ 40 mg DAILY RONA Administration Famotidine 20 mg 02/14/17 09:00 02/17/17 10:03 Pepcid PO 20 mg DAILY RONA Administration Formoterol Fumarate 20 mcg 02/13/17 23:00 02/17/17 08:45 Perforomist INH 20 mcg RTBID RONA Administration Furosemide 20 mg 02/14/17 16:00 02/17/17 14:40 Lasix Inj 20mg Vial IVP 20 mg BIDDIURETIC RONA Administration Ertapenem 1 gm/ Sodium 100 mls @ 200 mls/hr 02/15/17 11:00 02/17/17 10:40 Chloride IV Infused DAILY RONA Infusion Insulin Aspart 3 - 11 unit 02/15/17 08:00 02/17/17 21:19 Novolog SUBQ 9 unit 0800,1200,1700,2100 RONA Administration Protocol Insulin Glargine 10 unit 02/14/17 23:00 02/17/17 21:20 Lantus Solostar SUBQ 10 unit QPM RONA Administration Losartan Potassium 50 mg 02/14/17 09:00 02/17/17 10:04 Cozaar PO 50 mg DAILY RONA Administration Magnesium Oxide 400 mg 02/14/17 09:00 02/17/17 10:02 Mag Ox PO 400 mg DAILY RONA Administration Metformin HCl 1,000 mg 02/15/17 17:00 02/17/17 17:14 Glucophage PO 1,000 mg BIDWM RONA Administration Methylprednisolone 40 mg 02/14/17 06:00 02/17/17 21:19 Solu-Medrol (40mg Vial) IVP 40 mg TID RONA Administration Metoprolol Tartrate 100 mg 02/14/17 09:00 02/17/17 21:19 Lopressor PO 100 mg BID RONA Administration Oxycodone HCl 10 mg 02/13/17 22:45 02/16/17 04:43 Roxicodone PO 10 mg Q4HR PRN Administration Pain 8 to 10 Polyethylene Glycol 17 gm 02/14/17 09:00 02/17/17 10:05 Miralax PO 17 gm DAILY RONA Administration Sodium Chloride 10 ml 02/13/17 22:45 02/17/17 10:05 Normal Saline Flush 0.9% IVP 10 ml PRN PRN Administration NEEDED PER PROVIDER ORDERS Sodium Chloride 10 ml 02/14/17 06:00 02/17/17 21:19 Normal Saline Flush 0.9% IVP 10 ml Q8HR RONA Administration Trazodone HCl 25 mg 02/13/17 23:00 02/17/17 21:19 Desyrel PO 25 mg HS RONA Administration - Lab Result Fish Bone Diagrams: 02/16/17 05:25 02/18/17 05:28 - Additional Planning My Orders: My Active Orders 02/18/17 05:00 BMP - BASIC METABOLIC PANEL [CHEM] Routine Subjective - Subjective Patient Reports: Resting Comfortably, Other (Pt told RN he gets double vision occaisionally) Nursing Reports: Other (RN noticed difficulty finding words and ataxic gait) Objective Vital Signs: Vital Signs - 24 hr 02/17/17 02/17/17 02/17/17 00:25 07:19 08:45 Temperature 36.6 C 36.3 C L Heart Rate 79 Heart Rate [ 64 62 Brachial] Respiratory 16 16 20 Rate Blood Pressure Blood Pressure 167/69 H [Left Brachial artery] Blood Pressure 143/66 H [Right Brachial artery] O2 Saturation 96 93 02/17/17 02/17/17 15:53 21:19 Temperature 36.2 C L Heart Rate Heart Rate [ 62 Brachial] Respiratory 17 Rate Blood Pressure 144/48 H Blood Pressure [Left Brachial artery] Blood Pressure 145/59 H [Right Brachial artery] O2 Saturation 90 L Oxygen O2 Source trach I&O (Last 24 Hrs): Intake and Output Totals x24h 02/15/17 02/16/17 02/17/17 23:59 23:59 23:59 Intake Total 1340 1360 1290 Output Total 1100 1075 1925 Balance 240 285 -635 General: Alert, Oriented x3 HEENT: Mucous membr. moist/pink Neck: Supple, No JVD Neuro: Alert, Non Focal Cardiovascular: Other (Distant HS) Respiratory: No respiratory distress, Other (Prolonged expiratory phase without wheezing or rales) Abdomen: Other (Obese) Extremities: No edema - Results Results: Laboratory Results WBC 9.2 x10^3/uL (4.8-10.8) 02/16/17 05:25 RBC 5.32 10^6/uL (4.70-6.10) 02/16/17 05:25 Hgb 11.7 g/dL (14.0-18.0) L 02/16/17 05:25 Hct 37.4 % (42.0-52.0) L 02/16/17 05:25 MCV 70.3 fL (80.0-94.0) L 02/16/17 05:25 MCH 21.9 pg (27.0-31.0) L 02/16/17 05:25 MCHC 31.2 g/dL (32.0-36.0) L 02/16/17 05:25 RDW 19.5 % (12.0-15.0) H 02/16/17 05:25 Plt Count 381 10^3/uL (130-450) 02/16/17 05:25 MPV 7.4 fL (7.4-11.4) 02/16/17 05:25 Neut # 7.9 10^3/uL (1.5-6.6) H 02/16/17 05:25 Lymph # 0.9 10^3/uL (1.5-3.5) L 02/16/17 05:25 [place] # 0.5 10^3/uL (0.0-1.0) 02/16/17 05:25 Eos # 0.0 10^3/uL (0.0-0.7) 02/16/17 05:25 Baso # 0.0 10^3/uL (0.0-0.1) 02/16/17 05:25 Absolute Nucleated RBC 0.00 x10^3/uL 02/16/17 05:25 Nucleated RBC % 0.0 /100WBC 02/16/17 05:25 Sodium 135 mmol/L (135-145) 02/16/17 05:25 Potassium 4.1 mmol/L (3.5-5.0) 02/16/17 05:25 Chloride 101 mmol/L (101-111) 02/16/17 05:25 Carbon Dioxide 25 mmol/L (21-32) 02/16/17 05:25 Anion Gap 9.0 (6-13) 02/16/17 05:25 BUN 27 mg/dL (6-20) H 02/16/17 05:25 Creatinine 0.8 mg/dL (0.6-1.2) 02/16/17 05:25 Estimated GFR (MDRD) 95 (>89) 02/16/17 05:25 Glucose 238 mg/dL (70-100) H 02/16/17 05:25 POC Whole Bld Glucose 312 mg/dL (70 - 100) H 02/17/17 20:52 Glycated Hemoglobin 12.5 % (4.6-6.2) H 02/14/17 05:20 Estim Average Glucose 312 (70-100) H 02/14/17 05:20 Lactic Acid 1.2 mmol/L (0.5-2.2) 02/13/17 21:47 Calcium 8.7 mg/dL (8.5-10.3) 02/16/17 05:25 Magnesium 1.8 mg/dL (1.7-2.8) 02/14/17 13:10 Iron 15 ug/dL (45-182) L 02/15/17 14:55 TIBC 440 ug/dL (250-450) 02/15/17 14:55 % Saturation 3 % (20-50) L 02/15/17 14:55 Transferrin 314 mg/dL (180-329) 02/15/17 14:55 Total Bilirubin 0.4 mg/dL (0.2-1.0) 02/13/17 21:47 AST 22 IU/L (10-42) 02/13/17 21:47 ALT 20 IU/L (10-60) 02/13/17 21:47 Alkaline Phosphatase 65 IU/L (42-121) 02/13/17 21:47 Troponin I < 0.04 ng/mL (<0.49) 02/14/17 20:58 B-Natriuretic Peptide 163 pg/mL (5-100) H 02/15/17 05:30 Total Protein 7.1 g/dL (6.7-8.2) 02/13/17 21:47 Albumin 3.5 g/dL (3.2-5.5) 02/13/17 21:47 Globulin 3.6 g/dL (2.1-4.2) 02/13/17 21:47 Albumin/Globulin Ratio 1.0 (1.0-2.2) 02/13/17 21:47 Lipase 31 U/L (22-51) 02/13/17 21:47 Vitamin B12 160 pg/mL (180-914) L 02/15/17 14:55 Folate 12.45 ng/mL (5.90 - >24.8) 02/15/17 14:55 TSH 0.76 uIU/mL (0.34-5.60) 02/15/17 05:30 Urine Color YELLOW 02/14/17 14:08 Urine Clarity CLEAR (CLEAR) 02/14/17 14:08 Urine pH 6.0 PH (5.0-7.5) 02/14/17 14:08 Ur Specific [place] 1.010 (1.002-1.030) 02/14/17 14:08 Urine Protein NEGATIVE mg/dL (NEGATIVE) 02/14/17 14:08 Urine Glucose (UA) >=1000 mg/dL (NEGATIVE) H 02/14/17 14:08 Urine Ketones NEGATIVE mg/dL (NEGATIVE) 02/14/17 14:08 Urine Occult Blood NEGATIVE (NEGATIVE) 02/14/17 14:08 Urine Nitrite NEGATIVE (NEGATIVE) 02/14/17 14:08 Urine Bilirubin NEGATIVE (NEGATIVE) 02/14/17 14:08 Urine Urobilinogen 0.2 (NORMAL) E.U./dL (NORMAL) 02/14/17 14:08 Ur Leukocyte Esterase NEGATIVE (NEGATIVE) 02/14/17 14:08 Urine RBC 0-5 /HPF (0-5) 02/14/17 14:08 Urine WBC 0-3 /HPF (0-3) 02/14/17 14:08 Ur Squamous Epith Cells FEW Squamous (<= Few) 02/14/17 14:08 Urine Bacteria Rare /HPF (None Seen) 02/14/17 14:08 Urine Mucus Few Strands 02/14/17 14:08 Urine Culture Comments NOT INDICATED 02/14/17 14:08 - Procedures Procedures: Procedures CATARAC PHACOEMULS/ASPIR (03/13/13) INSERT LENS AT CATAR EXT (03/13/13)
[2017-02-18] MEDS: methylPREDNISolone SUCCINATE 40 MG/ML VIAL IVP SCH ×3 (05:45→21:02)
[2017-02-18] MEDS: FUROSEMIDE 20 MG/2 ML VIAL IVP SCH ×2 (05:46→14:35)
[2017-02-18] MEDS: SODIUM CHLORIDE FLUSH 0.9% 10 ML SYRINGE IVP SCH ×3 (05:46→21:02)
[2017-02-18 06:30] LABS: CALCIUM 9.1 mg/dL (8.5-10.3); CREATININE 0.9 mg/dL (0.6-1.2); POTASSIUM 4.1 mmol/L (3.5-5.0)
[2017-02-18] MEDS: BUDESONIDE 0.5 MG/2 ML NEB INH SCH ×2 (07:55→19:45)
[2017-02-18] MEDS: FORMOTEROL FUMARATE NEB 20 MCG/2 ML INH SCH ×2 (07:55→19:45)
[2017-02-18] MEDS: INSULIN ASPART 300 UNIT/3 ML PEN SUBQ SCH ×4 (09:02→20:54)
[2017-02-18] MEDS ORDERED: DOCUSATE SODIUM 250 MG CAPSULE PO SCH (11:00)
[2017-02-18] MEDS ORDERED: SENNA 8.6 MG TABLET PO SCH (11:00)
[2017-02-18] MEDS: ERTAPENEM 1 GM in SODIUM CHLORIDE 0.9% MINIBAG 100 ML IV SCH (11:01)
[2017-02-18] MEDS: SODIUM CHLORIDE FLUSH 0.9% 10 ML SYRINGE IVP PRN (11:02)
[2017-02-18] MEDS: POLYETHYLENE GLYCOL 3350 17 GM PACKET PO SCH (11:02)
[2017-02-18] MEDS: metFORMIN 500 MG TABLET PO SCH ×2 (11:03→18:10)
[2017-02-18] MEDS: ENOXAPARIN 40 MG/0.4 ML SYRINGE SUBQ SCH (11:03)
[2017-02-18] MEDS: METOPROLOL TARTRATE 50 MG TABLET PO SCH ×2 (11:04→20:46)
[2017-02-18] MEDS: LOSARTAN 50 MG TABLET PO SCH (11:05)
[2017-02-18] MEDS: ASPIRIN CHEW 81 MG TABLET PO SCH (11:05)
[2017-02-18] MEDS: MAGNESIUM OXIDE 400 MG TABLET PO SCH (11:05)
[2017-02-18] MEDS: FAMOTIDINE 20 MG TABLET PO SCH (11:05)
--- NOTE | 2017-02-18 12:52 | Discharge Plan ---
Discharge Plan Disposition: 01 Home, Self Care Condition: Fair Prescriptions: Amitriptyline [Elavil] 10 mg PO QPM #30 tablet Diet: Diabetic Activity Restrictions: Activity as Tolerated Shower Restrictions: No Driving Restrictions: No Assistance Devices: Walker Weight Bearing: Full Weight Instruction Topics: Log Blood Sugar, Diabetes Technical Education Teacher Complications, Hyperglycemia, Hypoglycemia, Diabetes Healthy Meals, Diabetes Carbs, Diabetes Eating Out No Smoking: If you smoke, Please STOP! Call for help. Follow-up with: Georgie Monet ARNP [Primary Care Provider] -
--- NOTE | 2017-02-18 16:47 | PROVIDER PROGRESS NOTE ---
Assessment/Plan - Problem List (1) COPD exacerbation Assessment/Plan: Initally plan was for DCh home today, but will await an oxygen company to provide equipment, which cannot be done today (Sunday), peRT. Continue antibiotic to cover E coli and Proteus mirabilis (2) PBA (pseudobulbar affect) Assessment/Plan: Head CT neg. Continue Amytryptaline (3) Anemia Qualifiers: Anemia type: iron deficiency Assessment/Plan: On replacement (4) Generalized weakness Assessment/Plan: Pt able to ambulate with PT (5) Diabetes Qualifiers: Diabetes mellitus type: type 2 Diabetes mellitus complication status: without complication Diabetes mellitus detention insulin use: without detention use Qualified Code(s): E11.9 - Type 2 diabetes mellitus without complications Assessment/Plan: HbA1c is 12.6 here. I had long discussion with Pt regarding his typical diet: He eats one large restautant meal at midday of 2-4eggs, toast and hashbrowns and coffee. I will order nutrition consult for teaching. I reviewed a better diet and pathologies that occur with uncontrolled DM. (7) Hypertension Qualifiers: Hypertension type: essential hypertension Qualified Code(s): I10 - Essential (primary) hypertension Assessment/Plan: Stable. (9) Congestive heart failure Qualifiers: Congestive heart failure type: systolic Congestive heart failure chronicity : chronic Qualified Code(s): I50.22 - Chronic systolic (congestive) heart failure - Current Meds Current Meds: Current Medications Generic Name Dose Route Start Last Admin Trade Name Freq PRN Reason Stop Dose Admin Albuterol/Ipratropium 3 ml 02/13/17 22:45 02/17/17 19:50 Duoneb INH 3 ml RTQID PRN Administration Wheezing Amitriptyline HCl 10 mg 02/16/17 16:00 02/17/17 21:19 Elavil PO 10 mg QPM RONA Administration Aspirin 81 mg 02/14/17 09:00 02/18/17 11:05 [facility] [place] Aspirin PO 81 mg DAILY RONA Administration Atorvastatin Calcium 80 mg 02/14/17 21:00 02/17/17 21:19 Lipitor PO 80 mg HS RONA Administration Budesonide 0.5 mg 02/13/17 23:00 02/18/17 07:55 Pulmicort INH 0.5 mg RTBID RONA Administration Enoxaparin Sodium 40 mg 02/14/17 09:00 02/18/17 11:03 Lovenox SUBQ 40 mg DAILY RONA Administration Famotidine 20 mg 02/14/17 09:00 02/18/17 11:05 Pepcid PO 20 mg DAILY RONA Administration Formoterol Fumarate 20 mcg 02/13/17 23:00 02/18/17 07:55 Perforomist INH 20 mcg RTBID RONA Administration Furosemide 20 mg 02/14/17 16:00 02/18/17 14:35 Lasix Inj 20mg Vial IVP 20 mg BIDDIURETIC RONA Administration Ertapenem 1 gm/ Sodium 100 mls @ 200 mls/hr 02/15/17 11:00 02/18/17 12:14 Chloride IV Infused DAILY RONA Infusion Insulin Aspart 3 - 11 unit 02/15/17 08:00 02/18/17 11:08 Novolog SUBQ 11 unit 0800,1200,1700,2100 RONA Administration Protocol Insulin Glargine 10 unit 02/14/17 23:00 02/17/17 21:20 Lantus Solostar SUBQ 10 unit QPM RONA Administration Losartan Potassium 50 mg 02/14/17 09:00 02/18/17 11:05 Cozaar PO 50 mg DAILY RONA Administration Magnesium Oxide 400 mg 02/14/17 09:00 02/18/17 11:05 Mag Ox PO 400 mg DAILY RONA Administration Metformin HCl 1,000 mg 02/15/17 17:00 02/18/17 11:03 Glucophage PO 1,000 mg BIDWM RONA Administration Methylprednisolone 40 mg 02/14/17 06:00 02/18/17 14:35 Solu-Medrol (40mg Vial) IVP 40 mg TID RONA Administration Metoprolol Tartrate 100 mg 02/14/17 09:00 02/18/17 11:04 Lopressor PO 100 mg BID RONA Administration Oxycodone HCl 10 mg 02/13/17 22:45 02/16/17 04:43 Roxicodone PO 10 mg Q4HR PRN Administration Pain 8 to 10 Polyethylene Glycol 17 gm 02/14/17 09:00 02/18/17 11:02 Miralax PO 17 gm DAILY RONA Administration Sodium Chloride 10 ml 02/13/17 22:45 02/18/17 11:02 Normal Saline Flush 0.9% IVP 10 ml PRN PRN Administration NEEDED PER PROVIDER ORDERS Sodium Chloride 10 ml 02/14/17 06:00 02/18/17 14:35 Normal Saline Flush 0.9% IVP 10 ml Q8HR RONA Administration Trazodone HCl 25 mg 02/13/17 23:00 02/17/17 21:19 Desyrel PO 25 mg HS RONA Administration - Lab Result Fish Bone Diagrams: 02/16/17 05:25 02/18/17 05:28 - Additional Planning My Orders: My Active Orders 02/18/17 13:07 Discharge [RC] .ONCE 02/18/17 16:33 Nutrition Consult [CONS] Routine Subjective - Subjective Patient Reports: Feeling Better, Resting Comfortably Nursing Reports: Shortness of Breath (This am had o2 sat of 85% til coughed up his secretions (? mucous plug). RT recommend humidified oxygen and new apparatus for trach care. Also, notes that he drinks alot of coffee, which may be dehydrating him and creating inspisated secretions.) Objective Vital Signs: Vital Signs - 24 hr 02/17/17 02/17/17 02/17/17 19:50 21:19 23:40 Temperature 36.6 C Heart Rate 68 Heart Rate [ 62 Brachial] Respiratory 18 16 Rate Blood Pressure 144/48 H Blood Pressure 136/67 H [Right Brachial artery] O2 Saturation 95 02/18/17 02/18/17 02/18/17 07:26 07:55 12:38 Temperature 36.5 C Heart Rate 65 Heart Rate [ 60 61 Brachial] Respiratory 20 18 Rate Blood Pressure Blood Pressure 112/92 H [Right Brachial artery] O2 Saturation 87 L 96 Oxygen O2 Source Trach I&O (Last 24 Hrs): Intake and Output Totals x24h 02/16/17 02/17/17 02/18/17 23:59 23:59 23:59 Intake Total 1460 1390 1690 Output Total 1075 1925 550 Balance 385 -535 1140 General: Alert, Oriented x3 HEENT: Mucous membr. moist/pink Neck: Supple Cardiovascular: Regular rate Respiratory: Wheezes Abdomen: Other (Obese) Extremities: No edema - Results Results: Laboratory Results WBC 9.2 x10^3/uL (4.8-10.8) 02/16/17 05:25 RBC 5.32 10^6/uL (4.70-6.10) 02/16/17 05:25 Hgb 11.7 g/dL (14.0-18.0) L 02/16/17 05:25 Hct 37.4 % (42.0-52.0) L 02/16/17 05:25 MCV 70.3 fL (80.0-94.0) L 02/16/17 05:25 MCH 21.9 pg (27.0-31.0) L 02/16/17 05:25 MCHC 31.2 g/dL (32.0-36.0) L 02/16/17 05:25 RDW 19.5 % (12.0-15.0) H 02/16/17 05:25 Plt Count 381 10^3/uL (130-450) 02/16/17 05:25 MPV 7.4 fL (7.4-11.4) 02/16/17 05:25 Neut # 7.9 10^3/uL (1.5-6.6) H 02/16/17 05:25 Lymph # 0.9 10^3/uL (1.5-3.5) L 02/16/17 05:25 [place] # 0.5 10^3/uL (0.0-1.0) 02/16/17 05:25 Eos # 0.0 10^3/uL (0.0-0.7) 02/16/17 05:25 Baso # 0.0 10^3/uL (0.0-0.1) 02/16/17 05:25 Absolute Nucleated RBC 0.00 x10^3/uL 02/16/17 05:25 Nucleated RBC % 0.0 /100WBC 02/16/17 05:25 Sodium 137 mmol/L (135-145) 02/18/17 05:28 Potassium 4.1 mmol/L (3.5-5.0) 02/18/17 05:28 Chloride 98 mmol/L (101-111) L 02/18/17 05:28 Carbon Dioxide 27 mmol/L (21-32) 02/18/17 05:28 Anion Gap 12.0 (6-13) 02/18/17 05:28 BUN 31 mg/dL (6-20) H 02/18/17 05:28 Creatinine 0.9 mg/dL (0.6-1.2) 02/18/17 05:28 Estimated GFR (MDRD) 83 (>89) L 02/18/17 05:28 Glucose 238 mg/dL (70-100) H 02/18/17 05:28 POC Whole Bld Glucose 246 mg/dL (70 - 100) H 02/18/17 16:38 Glycated Hemoglobin 12.5 % (4.6-6.2) H 02/14/17 05:20 Estim Average Glucose 312 (70-100) H 02/14/17 05:20 Lactic Acid 1.2 mmol/L (0.5-2.2) 02/13/17 21:47 Calcium 9.1 mg/dL (8.5-10.3) 02/18/17 05:28 Magnesium 1.8 mg/dL (1.7-2.8) 02/14/17 13:10 Iron 15 ug/dL (45-182) L 02/15/17 14:55 TIBC 440 ug/dL (250-450) 02/15/17 14:55 % Saturation 3 % (20-50) L 02/15/17 14:55 Transferrin 314 mg/dL (180-329) 02/15/17 14:55 Total Bilirubin 0.4 mg/dL (0.2-1.0) 02/13/17 21:47 AST 22 IU/L (10-42) 02/13/17 21:47 ALT 20 IU/L (10-60) 02/13/17 21:47 Alkaline Phosphatase 65 IU/L (42-121) 02/13/17 21:47 Troponin I < 0.04 ng/mL (<0.49) 02/14/17 20:58 B-Natriuretic Peptide 163 pg/mL (5-100) H 02/15/17 05:30 Total Protein 7.1 g/dL (6.7-8.2) 02/13/17 21:47 Albumin 3.5 g/dL (3.2-5.5) 02/13/17 21:47 Globulin 3.6 g/dL (2.1-4.2) 02/13/17 21:47 Albumin/Globulin Ratio 1.0 (1.0-2.2) 02/13/17 21:47 Lipase 31 U/L (22-51) 02/13/17 21:47 Vitamin B12 160 pg/mL (180-914) L 02/15/17 14:55 Folate 12.45 ng/mL (5.90 - >24.8) 02/15/17 14:55 TSH 0.76 uIU/mL (0.34-5.60) 02/15/17 05:30 Urine Color YELLOW 02/14/17 14:08 Urine Clarity CLEAR (CLEAR) 02/14/17 14:08 Urine pH 6.0 PH (5.0-7.5) 02/14/17 14:08 Ur Specific [place] 1.010 (1.002-1.030) 02/14/17 14:08 Urine Protein NEGATIVE mg/dL (NEGATIVE) 02/14/17 14:08 Urine Glucose (UA) >=1000 mg/dL (NEGATIVE) H 02/14/17 14:08 Urine Ketones NEGATIVE mg/dL (NEGATIVE) 02/14/17 14:08 Urine Occult Blood NEGATIVE (NEGATIVE) 02/14/17 14:08 Urine Nitrite NEGATIVE (NEGATIVE) 02/14/17 14:08 Urine Bilirubin NEGATIVE (NEGATIVE) 02/14/17 14:08 Urine Urobilinogen 0.2 (NORMAL) E.U./dL (NORMAL) 02/14/17 14:08 Ur Leukocyte Esterase NEGATIVE (NEGATIVE) 02/14/17 14:08 Urine RBC 0-5 /HPF (0-5) 02/14/17 14:08 Urine WBC 0-3 /HPF (0-3) 02/14/17 14:08 Ur Squamous Epith Cells FEW Squamous (<= Few) 02/14/17 14:08 Urine Bacteria Rare /HPF (None Seen) 02/14/17 14:08 Urine Mucus Few Strands 02/14/17 14:08 Urine Culture Comments NOT INDICATED 02/14/17 14:08 - Procedures Procedures: Procedures CATARAC PHACOEMULS/ASPIR (03/13/13) INSERT LENS AT CATAR EXT (03/13/13)
[2017-02-18] MEDS: ATORVASTATIN 40 MG TABLET PO SCH (20:46)
[2017-02-18] MEDS: AMITRIPTYLINE 10 MG TABLET PO SCH (20:47)
[2017-02-18] MEDS: traZODone 50 MG TABLET PO SCH (20:47)
[2017-02-18] MEDS: INSULIN GLARGINE 300 UNIT/3 ML PEN SUBQ SCH (20:55)
[2017-02-19] MEDS: SODIUM CHLORIDE FLUSH 0.9% 10 ML SYRINGE IVP SCH ×3 (06:07→21:08)
[2017-02-19] MEDS: FUROSEMIDE 20 MG/2 ML VIAL IVP SCH (06:07)
[2017-02-19] MEDS: SODIUM CHLORIDE FLUSH 0.9% 10 ML SYRINGE IVP PRN ×2 (06:07→09:49)
[2017-02-19] MEDS: methylPREDNISolone SUCCINATE 40 MG/ML VIAL IVP SCH (06:07)
[2017-02-19] MEDS: BUDESONIDE 0.5 MG/2 ML NEB INH SCH ×2 (08:39→21:00)
[2017-02-19] MEDS: FORMOTEROL FUMARATE NEB 20 MCG/2 ML INH SCH ×2 (08:39→21:00)
[2017-02-19] MEDS ORDERED: SODIUM CHLORIDE 0.9% 100ML 100 ML IV ONE (09:35)
[2017-02-19] MEDS: INSULIN ASPART 300 UNIT/3 ML PEN SUBQ SCH ×4 (09:41→21:07)
[2017-02-19] MEDS: ASPIRIN CHEW 81 MG TABLET PO SCH (09:42)
[2017-02-19] MEDS: metFORMIN 500 MG TABLET PO SCH ×2 (09:42→16:57)
[2017-02-19] MEDS: FAMOTIDINE 20 MG TABLET PO SCH (09:42)
[2017-02-19] MEDS: MAGNESIUM OXIDE 400 MG TABLET PO SCH (09:42)
[2017-02-19] MEDS: ENOXAPARIN 40 MG/0.4 ML SYRINGE SUBQ SCH (09:43)
[2017-02-19] MEDS: LOSARTAN 50 MG TABLET PO SCH (09:43)
[2017-02-19] MEDS: POLYETHYLENE GLYCOL 3350 17 GM PACKET PO SCH (09:43)
[2017-02-19] MEDS: METOPROLOL TARTRATE 50 MG TABLET PO SCH ×2 (09:44→21:05)
[2017-02-19] MEDS: ERTAPENEM 1 GM in SODIUM CHLORIDE 0.9% MINIBAG 100 ML IV SCH (09:48)
[2017-02-19] MEDS: predniSONE 20 MG TABLET PO SCH (12:58)
[2017-02-19] MEDS ORDERED: FUROSEMIDE 20 MG TABLET PO SCH (13:00)
--- NOTE | 2017-02-19 17:10 | PROVIDER PROGRESS NOTE ---
Assessment/Plan - Problem List (1) COPD exacerbation Assessment/Plan: Pt comfortable At home, pt requires humidified apparatus and a trach mask, which was not available yesterday (Sunday). RT has checked with [facility] and they can only have it at his house tomorrow. Will transition iv Solumedrol to po Prednisone 20 mg daily and iv Lasix po Lasix (2) PBA (pseudobulbar affect) Assessment/Plan: More stable on several days of Amytriptylline. 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 Will change iv Lasix to po, continue other cardiac meds - Current Meds Current Meds: Current Medications Generic Name Dose Route Start Last Admin Trade Name Freq PRN Reason Stop Dose Admin Albuterol/Ipratropium 3 ml 02/13/17 22:45 02/17/17 19:50 Duoneb INH 3 ml RTQID PRN Administration Wheezing Amitriptyline HCl 10 mg 02/16/17 16:00 02/18/17 20:47 Elavil PO 10 mg QPM RONA Administration Aspirin 81 mg 02/14/17 09:00 02/19/17 09:42 [facility] Aspirin PO 81 mg DAILY RONA Administration Atorvastatin Calcium 80 mg 02/14/17 21:00 02/18/17 20:46 Lipitor PO 80 mg HS RONA Administration Budesonide 0.5 mg 02/13/17 23:00 02/19/17 08:39 Pulmicort INH 0.5 mg RTBID RONA Administration Enoxaparin Sodium 40 mg 02/14/17 09:00 02/19/17 09:43 Lovenox SUBQ 40 mg DAILY RONA Administration Famotidine 20 mg 02/14/17 09:00 02/19/17 09:42 Pepcid PO 20 mg DAILY RONA Administration Formoterol Fumarate 20 mcg 02/13/17 23:00 02/19/17 08:39 Perforomist INH 20 mcg RTBID RONA Administration Ertapenem 1 gm/ Sodium 100 mls @ 200 mls/hr 02/15/17 11:00 02/19/17 10:59 Chloride IV Infused DAILY RONA Infusion Insulin Aspart 3 - 11 unit 02/15/17 08:00 02/19/17 16:59 Novolog SUBQ 7 unit 0800,1200,1700,2100 RONA Administration Protocol Insulin Glargine 10 unit 02/14/17 23:00 02/18/17 20:55 Lantus Solostar SUBQ 10 unit QPM RONA Administration Losartan Potassium 50 mg 02/14/17 09:00 02/19/17 09:43 Cozaar PO 50 mg DAILY RONA Administration Magnesium Oxide 400 mg 02/14/17 09:00 02/19/17 09:42 Mag Ox PO 400 mg DAILY RONA Administration Metformin HCl 1,000 mg 02/15/17 17:00 02/19/17 16:57 Glucophage PO 1,000 mg BIDWM RONA Administration Metoprolol Tartrate 100 mg 02/14/17 09:00 02/19/17 09:44 Lopressor PO 100 mg BID RONA Administration Oxycodone HCl 10 mg 02/13/17 22:45 02/16/17 04:43 Roxicodone PO 10 mg Q4HR PRN Administration Pain 8 to 10 Polyethylene Glycol 17 gm 02/14/17 09:00 02/19/17 09:43 Miralax PO Not Given DAILY RONA Prednisone 20 mg 02/19/17 13:00 02/19/17 12:58 Deltasone PO 20 mg DAILYWM RONA Administration Sodium Chloride 10 ml 02/13/17 22:45 02/19/17 09:49 Normal Saline Flush 0.9% IVP 10 ml PRN PRN Administration NEEDED PER PROVIDER ORDERS Sodium Chloride 10 ml 02/14/17 06:00 02/19/17 12:59 Normal Saline Flush 0.9% IVP 10 ml Q8HR RONA Administration Trazodone HCl 25 mg 02/13/17 23:00 02/18/17 20:47 Desyrel PO 25 mg HS RONA Administration - Lab Result Fish Bone Diagrams: 02/16/17 05:25 02/18/17 05:28 - Additional Planning My Orders: My Active Orders 02/18/17 16:33 Nutrition Consult [CONS] Routine 02/19/17 13:00 predniSONE [Deltasone] 20 mg PO DAILYWM 02/20/17 06:00 Furosemide [Lasix] 20 mg PO BIDDIURETIC Subjective - Subjective Patient Reports: Feeling Better, Resting Comfortably Nursing Reports: No Complaints Objective Vital Signs: Vital Signs - 24 hr 02/18/17 02/18/17 02/18/17 19:45 21:54 23:30 Temperature 36.5 C 36.9 C Heart Rate 66 Heart Rate [ 63 65 Brachial] Respiratory 18 19 18 Rate Blood Pressure Blood Pressure 132/65 H [Left Brachial artery] Blood Pressure 143/63 H [Right Brachial artery] O2 Saturation 99 96 02/19/17 02/19/17 02/19/17 08:40 08:42 09:44 Temperature 36.3 C L Heart Rate 73 Heart Rate [ 69 Brachial] Respiratory 16 18 Rate Blood Pressure 114/52 L Blood Pressure [Left Brachial artery] Blood Pressure 114/52 L [Right Brachial artery] O2 Saturation 87 L 02/19/17 15:21 Temperature 36.5 C Heart Rate Heart Rate [ 62 Brachial] Respiratory 16 Rate Blood Pressure Blood Pressure 120/54 L [Left Brachial artery] Blood Pressure [Right Brachial artery] O2 Saturation 97 Oxygen O2 Source Trach I&O (Last 24 Hrs): Intake and Output Totals x24h 02/17/17 02/18/17 02/19/17 23:59 23:59 23:59 Intake Total 1390 2410 1013.667 Output Total 1925 550 Balance -535 1860 1013.667 General: Alert HEENT: Mucous membr. moist/pink Neck: Other (Tracheostomy) Neuro: Alert, Oriented Times 3 Cardiovascular: Regular rate, No murmurs Respiratory: No respiratory distress, Breath sounds nml Abdomen: Other (Obese) Extremities: No edema - Results Results: Laboratory Results WBC 9.2 x10^3/uL (4.8-10.8) 02/16/17 05:25 RBC 5.32 10^6/uL (4.70-6.10) 02/16/17 05:25 Hgb 11.7 g/dL (14.0-18.0) L 02/16/17 05:25 Hct 37.4 % (42.0-52.0) L 02/16/17 05:25 MCV 70.3 fL (80.0-94.0) L 02/16/17 05:25 MCH 21.9 pg (27.0-31.0) L 02/16/17 05:25 MCHC 31.2 g/dL (32.0-36.0) L 02/16/17 05:25 RDW 19.5 % (12.0-15.0) H 02/16/17 05:25 Plt Count 381 10^3/uL (130-450) 02/16/17 05:25 MPV 7.4 fL (7.4-11.4) 02/16/17 05:25 Neut # 7.9 10^3/uL (1.5-6.6) H 02/16/17 05:25 Lymph # 0.9 10^3/uL (1.5-3.5) L 02/16/17 05:25 [place] # 0.5 10^3/uL (0.0-1.0) 02/16/17 05:25 Eos # 0.0 10^3/uL (0.0-0.7) 02/16/17 05:25 Baso # 0.0 10^3/uL (0.0-0.1) 02/16/17 05:25 Absolute Nucleated RBC 0.00 x10^3/uL 02/16/17 05:25 Nucleated RBC % 0.0 /100WBC 02/16/17 05:25 Sodium 137 mmol/L (135-145) 02/18/17 05:28 Potassium 4.1 mmol/L (3.5-5.0) 02/18/17 05:28 Chloride 98 mmol/L (101-111) L 02/18/17 05:28 Carbon Dioxide 27 mmol/L (21-32) 02/18/17 05:28 Anion Gap 12.0 (6-13) 02/18/17 05:28 BUN 31 mg/dL (6-20) H 02/18/17 05:28 Creatinine 0.9 mg/dL (0.6-1.2) 02/18/17 05:28 Estimated GFR (MDRD) 83 (>89) L 02/18/17 05:28 Glucose 238 mg/dL (70-100) H 02/18/17 05:28 POC Whole Bld Glucose 263 mg/dL (70 - 100) H 02/19/17 16:24 Glycated Hemoglobin 12.5 % (4.6-6.2) H 02/14/17 05:20 Estim Average Glucose 312 (70-100) H 02/14/17 05:20 Lactic Acid 1.2 mmol/L (0.5-2.2) 02/13/17 21:47 Calcium 9.1 mg/dL (8.5-10.3) 02/18/17 05:28 Magnesium 1.8 mg/dL (1.7-2.8) 02/14/17 13:10 Iron 15 ug/dL (45-182) L 02/15/17 14:55 TIBC 440 ug/dL (250-450) 02/15/17 14:55 % Saturation 3 % (20-50) L 02/15/17 14:55 Transferrin 314 mg/dL (180-329) 02/15/17 14:55 Total Bilirubin 0.4 mg/dL (0.2-1.0) 02/13/17 21:47 AST 22 IU/L (10-42) 02/13/17 21:47 ALT 20 IU/L (10-60) 02/13/17 21:47 Alkaline Phosphatase 65 IU/L (42-121) 02/13/17 21:47 Troponin I < 0.04 ng/mL (<0.49) 02/14/17 20:58 B-Natriuretic Peptide 163 pg/mL (5-100) H 02/15/17 05:30 Total Protein 7.1 g/dL (6.7-8.2) 02/13/17 21:47 Albumin 3.5 g/dL (3.2-5.5) 02/13/17 21:47 Globulin 3.6 g/dL (2.1-4.2) 02/13/17 21:47 Albumin/Globulin Ratio 1.0 (1.0-2.2) 02/13/17 21:47 Lipase 31 U/L (22-51) 02/13/17 21:47 Vitamin B12 160 pg/mL (180-914) L 02/15/17 14:55 Folate 12.45 ng/mL (5.90 - >24.8) 02/15/17 14:55 TSH 0.76 uIU/mL (0.34-5.60) 02/15/17 05:30 Urine Color YELLOW 02/14/17 14:08 Urine Clarity CLEAR (CLEAR) 02/14/17 14:08 Urine pH 6.0 PH (5.0-7.5) 02/14/17 14:08 Ur Specific [place] 1.010 (1.002-1.030) 02/14/17 14:08 Urine Protein NEGATIVE mg/dL (NEGATIVE) 02/14/17 14:08 Urine Glucose (UA) >=1000 mg/dL (NEGATIVE) H 02/14/17 14:08 Urine Ketones NEGATIVE mg/dL (NEGATIVE) 02/14/17 14:08 Urine Occult Blood NEGATIVE (NEGATIVE) 02/14/17 14:08 Urine Nitrite NEGATIVE (NEGATIVE) 02/14/17 14:08 Urine Bilirubin NEGATIVE (NEGATIVE) 02/14/17 14:08 Urine Urobilinogen 0.2 (NORMAL) E.U./dL (NORMAL) 02/14/17 14:08 Ur Leukocyte Esterase NEGATIVE (NEGATIVE) 02/14/17 14:08 Urine RBC 0-5 /HPF (0-5) 02/14/17 14:08 Urine WBC 0-3 /HPF (0-3) 02/14/17 14:08 Ur Squamous Epith Cells FEW Squamous (<= Few) 02/14/17 14:08 Urine Bacteria Rare /HPF (None Seen) 02/14/17 14:08 Urine Mucus Few Strands 02/14/17 14:08 Urine Culture Comments NOT INDICATED 02/14/17 14:08 - Procedures Procedures: Procedures CATARAC PHACOEMULS/ASPIR (03/13/13) INSERT LENS AT CATAR EXT (03/13/13)
[2017-02-19] MEDS ORDERED: BENZOCAINE/MENTHOL LOZENGE MM PRN (18:37)
[2017-02-19] MEDS: ATORVASTATIN 40 MG TABLET PO SCH (21:05)
[2017-02-19] MEDS: AMITRIPTYLINE 10 MG TABLET PO SCH (21:05)
[2017-02-19] MEDS: traZODone 50 MG TABLET PO SCH (21:05)
[2017-02-19] MEDS: INSULIN GLARGINE 300 UNIT/3 ML PEN SUBQ SCH (21:07)
[2017-02-20] MEDS: SODIUM CHLORIDE FLUSH 0.9% 10 ML SYRINGE IVP SCH ×2 (06:07→13:42)
[2017-02-20] MEDS: FUROSEMIDE 20 MG TABLET PO SCH ×2 (06:08→13:44)
[2017-02-20] MEDS: BUDESONIDE 0.5 MG/2 ML NEB INH SCH (07:55)
[2017-02-20] MEDS: FORMOTEROL FUMARATE NEB 20 MCG/2 ML INH SCH (07:55)
[2017-02-20] MEDS: ASPIRIN CHEW 81 MG TABLET PO SCH (08:15)
[2017-02-20] MEDS: FAMOTIDINE 20 MG TABLET PO SCH (08:15)
[2017-02-20] MEDS: LOSARTAN 50 MG TABLET PO SCH (08:15)
[2017-02-20] MEDS: predniSONE 20 MG TABLET PO SCH (08:15)
[2017-02-20] MEDS: MAGNESIUM OXIDE 400 MG TABLET PO SCH (08:15)
[2017-02-20] MEDS: ENOXAPARIN 40 MG/0.4 ML SYRINGE SUBQ SCH (08:15)
[2017-02-20] MEDS: METOPROLOL TARTRATE 50 MG TABLET PO SCH (08:16)
[2017-02-20] MEDS: metFORMIN 500 MG TABLET PO SCH (08:16)
[2017-02-20] MEDS: INSULIN ASPART 300 UNIT/3 ML PEN SUBQ SCH ×2 (08:17→12:27)
[2017-02-20] MEDS: POLYETHYLENE GLYCOL 3350 17 GM PACKET PO SCH (08:17)
[2017-02-20] MEDS: ERTAPENEM 1 GM in SODIUM CHLORIDE 0.9% MINIBAG 100 ML IV SCH (08:25)
--- NOTE | 2017-02-20 10:34 | Discharge Plan ---
Discharge Plan Disposition: 01 Home, Self Care Condition: Fair Prescriptions: Amitriptyline [Elavil] 10 mg PO QPM #30 tablet Ciprofloxacin HCl [Cipro] 500 mg PO BID #20 tablet Prednisone 20 mg PO DAILY #25 tab.[id number].pk Activity Restrictions: Activity as Tolerated Shower Restrictions: No Driving Restrictions: No Weight Bearing: Full Weight Instruction Topics: Amitriptyline tablets, Ciprofloxacin tablets, Prednisone tablets, Log Blood Sugar, Diabetes Prison Complications, Hyperglycemia, Hypoglycemia, Diabetes Healthy Meals, Diabetes Carbs, Diabetes Eating Out, COPD No Smoking: If you smoke, Please STOP! Call for help. Follow-up with: Georgie Monet ARNP [Primary Care Provider] -
--- NOTE | 2017-02-20 14:55 | DISCHARGE SUMMARY ---
Discharge Summary Admit Date: 02/14/17 Discharge Date: 02/20/17 Discharging Provider: Brigido Velázquez MD Primary Care Provider: Georgie Mnoet [facility] Code Status: Attempt Resuscitation Condition at Discharge: Fair Discharge Disposition: 01 Home, Self Care - DIAGNOSES Admission Diagnoses: 1. COPD exacerbation 2. Generalized weakness 3. Diabetes 4. Hypomagnesemia 5. Hypertension 6. Congestive heart failure 7. History of coronary artery disease 8. Prophylactic use of low molecular weight heparin for venous thromboembolism Discharge Diagnoses with Status of Each Condition: 1. COPD exacerbation- improving 2. Pneumonia - Improving 3. Pseudobulbar affect - stable 4. Iron deficiency anemia - stable 5. Diabetes - poorly controlled 6. Hypertension - stable 7. History of coronary disease - stable 8. Congestive heart failure - stable - HPI History of Present Illness: Patient is a 71-year-old gentleman with a past medical history significant for hypertension, hyperlipidemia, coronary artery disease status post CABG, congestive heart failure with ejection fraction of 20% on last echo in 2013, COPD on 2-3 L of oxygen at night, history of laryngeal cancer status post tracheostomy, obstructive sleep apnea, diabetes and osteoarthritis who presented to the emergency department with a chief complaint of generalized weakness. The patient states that he was in his normal state of health until the last couple of days where he has been feeling increasingly weak. He states that he is fallen in his house several times. He states that he continues to lose his balance and has had poor coordination and difficulty walking. He also states that over the last 1-2 months he has had a chronic cough which has been worsening over the last few days. He also states that he has been short of air for about a month and this comes and goes but has been getting increasingly bad in the last 2 days. The patient denies any fevers or chills. He denies any headaches, blurred vision, runny nose, sore throat, chest pain, orthopnea, increased lower extremity swelling, abdominal pain, nausea, vomiting, diarrhea, urinary urgency, urinary frequency, dysuria, he admits to pain in his left hip but no other joint pains, muscle aches, joint swelling, changes in his appetite , weight loss or any focal neurologic deficits. On presentation to the emergency department the patient was afebrile he was hypertensive with a blood pressure of 167/79, he was tachypneic and he was saturating about 93% on room air. The patient did appear to be in some respiratory distress as he was quite tachypneic and was coughing up bringing up grayish white sputum in his trach. The patient underwent routine lab work which showed a normal WBC and normal electrolytes aside from a slightly decreased magnesium. On examination the patient was found to have profuse wheezing and was tachypneic with productive cough. The patient underwent a chest x-ray which showed no acute process. The patient was given several DuoNeb treatments, Decadron and a dose of antibiotics with ceftriaxone but he had only minimal improvement in his symptoms therefore he was placed in observation for COPD exacerbation and generalized weakness. - HOSPITAL COURSE Hospital Course: Patient was treated for COPD exacerbation and initially had minimal improvement. Patients repeat CXR showed a pneumonia. Patient was started on IV abx. Patients sputum cx showed e coli and proteus. Patient was transitioned to PO cipro at discharge. He was also discharged on a prednisone taper. Patient developed a PBA during hospitalization and had improvement once placed on amytriptylline. He was discharged on amytriptylline. Patients blood glucose was very poorly controlled. He was placed on insulin in the hospital. He will return to his PO regimen but given his A1C of 12.5 he likely needs to be started on lantus as an outpatient. (1) COPD exacerbation Assessment/Plan: Pt comfortable At home, pt requires humidified apparatus and a trach mask, which was not available until day of discharge. Patient discharged on Prednisone taper and ciprofloxacin (2) Pneumonia Assessment/Plan: Patient presented with dyspnea and wheezing initial x ray did not show pneumonia but repeat Xray did patient placed on antibiotics and discharged on PO ciprofloxacin Sputum cx grew ecoli and proteus (3) PBA (pseudobulbar affect) Assessment/Plan: More stable on several days of Amytriptylline. Discharged home with amytriptylline (4) Anemia Qualifiers: Anemia type: iron deficiency Assessment/Plan: On iron replacement (5) Diabetes Qualifiers: Diabetes mellitus type: type 2 Diabetes mellitus complication status: without complication Diabetes mellitus mcfp insulin use: without longitudinal float operator use Qualified Code(s): E11.9 - Type 2 diabetes mellitus without complications Assessment/Plan: Windows Technical Specialist hadlong discussion with Pt and he will need teaching regarding better diabetic diet Patient on metformin, januvia and glipizide but blood glucose poorly controlled especially on steroids Patient needs follow up with PCP for management and will likely need to be placed on insulin HbA1C is 12.5 (6) Hypertension Qualifiers: Hypertension type: essential hypertension Qualified Code(s): I10 - Essential (primary) hypertension Assessment/Plan: Stable (7) History of coronary artery disease Assessment/Plan: Stable (8) Congestive heart failure Qualifiers: Congestive heart failure type: systolic Congestive heart failure chronicity : chronic Qualified Code(s): I50.22 - Chronic systolic (congestive) heart failure Assessment/Plan: Stable. Discharged on PO lasix, metoprolol and cozaar - ALLERGIES Allergies/Adverse Reactions: Allergies Allergy/AdvReac Type Severity Reaction Status Date / Time No Known Drug Allergies Allergy Verified 06/10/13 15:20 - MEDICATIONS Home Medications: Ambulatory Orders Medication Instructions Recorded Confirmed Aspirin Chewable [[place] 81 mg PO DAILY 10/15/12 02/14/17 Aspirin] Metformin HCl 1,000 mg PO BID 10/15/12 02/14/17 Trazodone HCl 50 mg PO HS 10/15/12 02/14/17 glipiZIDE [Glucotrol] 15 mg PO BID 10/15/12 02/14/17 Atorvastatin Calcium [Lipitor] 80 mg PO HS 04/29/13 02/14/17 Omeprazole [PriLOSEC] 10 mg PO QDAC 04/29/13 02/14/17 oxyCODONE/ACET 5/325 [Percocet 5 1 each PO BID PRN 04/29/13 02/14/17 mg/325 mg] Budesonide/Formoterol Fumarate 2 puffs IH BID 06/10/13 02/14/17 [Symbicort 160-4.5 Mcg Inhaler] Ipratropium/Albuterol [Duoneb] 3 ml INH Q6H PRN 06/10/13 02/14/17 Losartan [Cozaar] 50 mg PO DAILY 06/10/13 02/14/17 Albuterol Sulfate [Proair Hfa 1 - 2 puffs INH Q4H PRN 02/14/17 02/14/17 Inhaler] Calcium Carbonate/Vitamin D3 2 each PO DAILY 02/14/17 02/14/17 [Calcium 600-Vit D3 400 Tablet] Furosemide 40 mg PO DAILY 02/14/17 02/14/17 Loperamide [Imodium] 2 mg PO Q6H PRN 02/14/17 02/14/17 Magnesium Oxide 500 mg PO BID 02/14/17 02/14/17 Meloxicam 15 mg PO DAILY 02/14/17 02/14/17 Metoprolol Succinate [Toprol Xl] 100 mg PO BID 02/14/17 02/14/17 Multivitamin [Multiple Vitamins] 1 each PO DAILY 02/14/17 02/14/17 Potassium Chloride [K-Dur] 20 meq PO 0800 02/14/17 02/14/17 SITagliptin [Januvia] 100 mg PO DAILY 02/14/17 02/14/17 Tamsulosin [Flomax] 0.4 mg PO DAILY 02/14/17 02/14/17 Warfarin Sodium 7.5 mg PO SUTUTHSA 02/14/17 02/14/17 Warfarin Sodium [Coumadin] 10 mg PO MOWEFR 02/14/17 02/14/17 Amitriptyline [Elavil] 10 mg PO QPM #30 tablet 02/18/17 Ciprofloxacin HCl [Cipro] 500 mg PO BID #20 tablet 02/18/17 Ipratropium/Albuterol [Duoneb] 3 ml INH RTQID PRN neb 02/18/17 Magnesium Oxide [Mag Ox] 400 mg PO DAILY tablet 02/18/17 Methocarbamol [Robaxin] 500 mg PO TID PRN tablet 02/18/17 Metoprolol Tartrate [Lopressor] 100 mg PO BID tablet 02/18/17 Prednisone 20 mg PO DAILY #25 tab.ds.pk 02/18/17 - PHYSICAL EXAM AT DISCHARGE General Appearance: positive: No acute distress, Alert, Other (Tracheostomy ) Eyes Bilateral: positive: Normal inspection, PERRL, EOMI, No lid inflammation, Conjunctivae nml, No scleral icterus ENT: positive: No signs of dehydration, Other (Tacheostomy ). negative: Purulent nasal drainage, Pharyngeal erythema, Oral lesions Neck: positive: Thyroid nml, No JVD, Trachea midline. negative: Thyromegaly, Lymphadenopathy (R), Lymphadenopathy (L), Carotid bruit, Tracheal deviation Respiratory: positive: Chest non-tender, Wheezes (Mild, scattered), Rales (bases ). negative: Rhonchi Cardiovascular: positive: Regular rate & rhythm, No murmur, No gallop Peripheral Pulses: positive: 2+ Abdomen: positive: Non-tender, No organomegaly, Nml bowel sounds, No distention. negative: Guarding, Rebound, Hepatomegaly Back: positive: Nml inspection. negative: CVA tenderness (R), CVA tenderness (L ) Skin: positive: Color nml, No rash. negative: Cyanosis, Diaphoresis, Pallor Extremities: positive: Non-tender, Full ROM, Nml appearance, No pedal edema Neurologic/Psychiatric: positive: Oriented x3, CN's nml (2-12), Motor nml, Sensation nml, Mood/affect nml - LABS Result Diagrams: 02/16/17 05:25 02/18/17 05:28 Other Lab Results: Laboratory Results WBC 9.2 x10^3/uL (4.8-10.8) 02/16/17 05:25 RBC 5.32 10^6/uL (4.70-6.10) 02/16/17 05:25 Hgb 11.7 g/dL (14.0-18.0) L 02/16/17 05:25 Hct 37.4 % (42.0-52.0) L 02/16/17 05:25 MCV 70.3 fL (80.0-94.0) L 02/16/17 05:25 MCH 21.9 pg (27.0-31.0) L 02/16/17 05:25 MCHC 31.2 g/dL (32.0-36.0) L 02/16/17 05:25 RDW 19.5 % (12.0-15.0) H 02/16/17 05:25 Plt Count 381 10^3/uL (130-450) 02/16/17 05:25 MPV 7.4 fL (7.4-11.4) 02/16/17 05:25 Neut # 7.9 10^3/uL (1.5-6.6) H 02/16/17 05:25 Lymph # 0.9 10^3/uL (1.5-3.5) L 02/16/17 05:25 [place] # 0.5 10^3/uL (0.0-1.0) 02/16/17 05:25 Eos # 0.0 10^3/uL (0.0-0.7) 02/16/17 05:25 Baso # 0.0 10^3/uL (0.0-0.1) 02/16/17 05:25 Absolute Nucleated RBC 0.00 x10^3/uL 02/16/17 05:25 Nucleated RBC % 0.0 /100WBC 02/16/17 05:25 Sodium 137 mmol/L (135-145) 02/18/17 05:28 Potassium 4.1 mmol/L (3.5-5.0) 02/18/17 05:28 Chloride 98 mmol/L (101-111) L 02/18/17 05:28 Carbon Dioxide 27 mmol/L (21-32) 02/18/17 05:28 Anion Gap 12.0 (6-13) 02/18/17 05:28 BUN 31 mg/dL (6-20) H 02/18/17 05:28 Creatinine 0.9 mg/dL (0.6-1.2) 02/18/17 05:28 Estimated GFR (MDRD) 83 (>89) L 02/18/17 05:28 Glucose 238 mg/dL (70-100) H 02/18/17 05:28 POC Whole Bld Glucose 230 mg/dL (70 - 100) H 02/20/17 11:22 Glycated Hemoglobin 12.5 % (4.6-6.2) H 02/14/17 05:20 Estim Average Glucose 312 (70-100) H 02/14/17 05:20 Lactic Acid 1.2 mmol/L (0.5-2.2) 02/13/17 21:47 Calcium 9.1 mg/dL (8.5-10.3) 02/18/17 05:28 Magnesium 1.8 mg/dL (1.7-2.8) 02/14/17 13:10 Iron 15 ug/dL (45-182) L 02/15/17 14:55 TIBC 440 ug/dL (250-450) 02/15/17 14:55 % Saturation 3 % (20-50) L 02/15/17 14:55 Transferrin 314 mg/dL (180-329) 02/15/17 14:55 Total Bilirubin 0.4 mg/dL (0.2-1.0) 02/13/17 21:47 AST 22 IU/L (10-42) 02/13/17 21:47 ALT 20 IU/L (10-60) 02/13/17 21:47 Alkaline Phosphatase 65 IU/L (42-121) 02/13/17 21:47 Troponin I < 0.04 ng/mL (<0.49) 02/14/17 20:58 B-Natriuretic Peptide 163 pg/mL (5-100) H 02/15/17 05:30 Total Protein 7.1 g/dL (6.7-8.2) 02/13/17 21:47 Albumin 3.5 g/dL (3.2-5.5) 02/13/17 21:47 Globulin 3.6 g/dL (2.1-4.2) 02/13/17 21:47 Albumin/Globulin Ratio 1.0 (1.0-2.2) 02/13/17 21:47 Lipase 31 U/L (22-51) 02/13/17 21:47 Vitamin B12 160 pg/mL (180-914) L 02/15/17 14:55 Folate 12.45 ng/mL (5.90 - >24.8) 02/15/17 14:55 TSH 0.76 uIU/mL (0.34-5.60) 02/15/17 05:30 Urine Color YELLOW 02/14/17 14:08 Urine Clarity CLEAR (CLEAR) 02/14/17 14:08 Urine pH 6.0 PH (5.0-7.5) 02/14/17 14:08 Ur Specific [place] 1.010 (1.002-1.030) 02/14/17 14:08 Urine Protein NEGATIVE mg/dL (NEGATIVE) 02/14/17 14:08 Urine Glucose (UA) >=1000 mg/dL (NEGATIVE) H 02/14/17 14:08 Urine Ketones NEGATIVE mg/dL (NEGATIVE) 02/14/17 14:08 Urine Occult Blood NEGATIVE (NEGATIVE) 02/14/17 14:08 Urine Nitrite NEGATIVE (NEGATIVE) 02/14/17 14:08 Urine Bilirubin NEGATIVE (NEGATIVE) 02/14/17 14:08 Urine Urobilinogen 0.2 (NORMAL) E.U./dL (NORMAL) 02/14/17 14:08 Ur Leukocyte Esterase NEGATIVE (NEGATIVE) 02/14/17 14:08 Urine RBC 0-5 /HPF (0-5) 02/14/17 14:08 Urine WBC 0-3 /HPF (0-3) 02/14/17 14:08 Ur Squamous Epith Cells FEW Squamous (<= Few) 02/14/17 14:08 Urine Bacteria Rare /HPF (None Seen) 02/14/17 14:08 Urine Mucus Few Strands 02/14/17 14:08 Urine Culture Comments NOT INDICATED 02/14/17 14:08 - DIAGNOSTIC IMAGING Diagnostic Imaging Results: Final report reviewed Diagnostic Imaging Results Comments: Chest x-ray 02/13/2017 Impression: Chronic findings, no acute disease. Chest x-ray 02/15/2017 Impression: Left effusion with basilar airspace disease, compatible with pneumonia. CT head Impression: Generalized age-related cortical atrophic changes without evidence of acute intracranial abnormality. No significant interval change. - FOLLOW UP Follow Up: Patient will complete a course of ciprofloxacin for treatment of pneumonia. Patient will be placed on a prednisone taper for treatment of COPD. The patient will continue on Symbicort and DuoNeb's as needed for his COPD. The patient also was prescribed a humidifier for his trach with oxygen. The patient will need to follow-up with his primary care physician regarding his diabetes as it was poorly controlled while he was hospitalized. The patient likely needs to be started on insulin as an outpatient. The patient was also started on amitriptyline for pseudobulbar affect. - TIME SPENT Time Spent in Discharge (Minutes): 55 (Please fax d/c summary to PCP)
[2017-02-20 15:41] VITALS: BP 123/52
== END 2017-02-20 15:43 | disposition home or self-care (01) | DRG 190 ==
LOC: EDUNIT# → SUPCPDRO 19:34 → ED 19:34 → OBS 22:46 → OBSVTOIN 02-14 14:53 → MS2 02-14 15:25
PROVIDERS: ADMIT Internal Medicine; ATTEND Internal Medicine
DX: J44.1 Chronic obstructive pulmonary disease with (acute) exacerbation (principal); J15.5 Pneumonia due to Escherichia coli; J15.6 Pneumonia due to other Gram-negative bacteria; I50.22 Chronic systolic (congestive) heart failure; J44.0 Chronic obstructive pulmonary disease with (acute) lower respiratory infection; E11.65 Type 2 diabetes mellitus with hyperglycemia; F48.2 Pseudobulbar affect; D50.9 Iron deficiency anemia, unspecified; J06.9 Acute upper respiratory infection, unspecified; Z79.84 Long term (current) use of oral hypoglycemic drugs; E83.42 Hypomagnesemia; I11.0 Hypertensive heart disease with heart failure; E78.5 Hyperlipidemia, unspecified; G47.33 Obstructive sleep apnea (adult) (pediatric); M19.90 Unspecified osteoarthritis, unspecified site; Z93.0 Tracheostomy status; F17.210 Nicotine dependence, cigarettes, uncomplicated; R27.8 Other lack of coordination; R26.2 Difficulty in walking, not elsewhere classified; K21.9 Gastro-esophageal reflux disease without esophagitis; Z85.21 Personal history of malignant neoplasm of larynx; Z95.1 Presence of aortocoronary bypass graft; Z79.82 Long term (current) use of aspirin; Z79.891 Long term (current) use of opiate analgesic; Z79.51 Long term (current) use of inhaled steroids; Z79.899 Other long term (current) drug therapy
CPT/HCPCS: 36415; 70450; 71010; 71020; 80048; 80053; 81001; 82270; 82306; 82607; 82746; 83036; 83540; 83605; 83690; 83735; 83880; 84443; 84466; 84484; 85025; 87070; 87077; 87086; 87205; 93306; 94640; 94644; 94645; 96365; 96372; 96375; 96376; 99283; 99284; 99285

== ENCOUNTER 2017-02-27 08:00 | Outpatient (CLI) | payer MEDICARE, OTHER | END 2017-02-27 08:01 | disposition home or self-care (01) | LOC: LAB.N 08:00 | PROVIDERS: ATTEND Nurse Practitioner Gerontology | DX: I48.91 Unspecified atrial fibrillation (principal) | CPT/HCPCS: 85610 ==

== ENCOUNTER 2017-03-16 15:47 | Outpatient (CLI) | payer MEDICARE, OTHER | END 2017-03-16 15:48 | disposition home or self-care (01) | LOC: LAB.N 15:47 | PROVIDERS: ATTEND Nurse Practitioner Gerontology | DX: I48.91 Unspecified atrial fibrillation (principal) | CPT/HCPCS: 85610 ==

== ENCOUNTER 2017-04-04 15:19 | Outpatient (CLI) | payer MEDICARE, OTHER | END 2017-04-04 15:20 | disposition home or self-care (01) | LOC: LAB.N 15:19 | PROVIDERS: ATTEND Nurse Practitioner Gerontology | DX: I48.91 Unspecified atrial fibrillation (principal) | CPT/HCPCS: 85610 ==

== ENCOUNTER 2017-04-04 16:04 | Outpatient (CLI) | payer MEDICARE, OTHER | END 2017-04-04 16:05 | disposition critical access hospital (66) | LOC: EMS 16:04 | PROVIDERS: ATTEND Surgery | DX: R42 Dizziness and giddiness (principal) | CPT/HCPCS: A0425; A0429 ==

== ENCOUNTER 2017-04-04 16:28 | Inpatient (IN) | payer MEDICARE, OTHER ==
[2017-04-04 17:15] LABS: BASOPHILS # (AUTO) 0.2 10^3/uL (0.0-0.1); BASOPHILS % (AUTO) 1.3 %; EOSINOPHILS # (AUTO) 0.1 10^3/uL (0.0-0.7); EOSINOPHILS % (AUTO) 0.8 %; HCT - HEMATOCRIT 41.9 % (42.0-52.0); HGB - HEMOGLOBIN 13.2 g/dL (14.0-18.0); LYMPHOCYTES # (AUTO) 1.5 10^3/uL (1.5-3.5); LYMPHOCYTES % (AUTO) 12.2 %; MEAN CORPUSCULAR HEMOGLOBIN 22.7 pg (27.0-31.0); MEAN CORPUSCULAR HGB CONC 31.5 g/dL (32.0-36.0); MEAN PLATELET VOLUME 7.8 fL (7.4-11.4); MONOCYTES # (AUTO) 0.8 10^3/uL (0.0-1.0); MONOCYTES % (AUTO) 6.8 %; NEUTROPHILS # (AUTO) 9.7 10^3/uL (1.5-6.6); NEUTROPHILS % (AUTO) 78.9 %; NUCLEATED RED BLOOD CELLS AUTO 0.1 /100WBC; RED BLOOD COUNT 5.83 10^6/uL (4.70-6.10); RED CELL DISTRIBUTION WIDTH 22.4 % (12.0-15.0); UNCORRECTED WHITE BLOOD COUNT 12.3 x10^3/uL; WHITE BLOOD COUNT 12.3 x10^3/uL (4.8-10.8)
--- NOTE | 2017-04-04 17:15 | ED Physician Documentation ---
History of Present Illness - Stated complaint Stated Complaint: SOA - Chief complaint Chief Complaint: Resp - Additonal information Additional information: hx from pt 71 male hx CAD CABG HTN lipids DM COPD home O2 generalized weakness and soa for several days no fever chills no cough + NV s blood no diarrhea no urinary sx slight edema Review of Systems Constitutional: denies: Fever Cardiac: denies: Chest pain / pressure Respiratory: reports: Dyspnea. denies: Cough GI: reports: Nausea, Vomiting. denies: Abdominal Pain, Diarrhea : denies: Dysuria Neurologic: reports: Generalized weakness. denies: Focal weakness, Numbness, Headache Endocrine: reports: Easy bruising / bleeding Immunocompromised: denies: Immunocompromised PD PAST MEDICAL HISTORY - Past Medical History Cardiovascular: Congestive heart failure, Hypertension, High cholesterol, Coronary artery disease, CT Respiratory: COPD, Shortness of breath, Sleep apnea, CPAP use, Other (prior laryngeal surgery with trach chronically. ) Neuro: None Endocrine/Autoimmune: Type 2 diabetes GI: GERD : None HEENT: Other Psych: None Musculoskeletal: Osteoarthritis Derm: None - Past Surgical History Past Surgical History: Yes General: Other Cardiovascular: CABG HEENT: Cataracts, Tracheostomy - Present Medications Home Medications: Ambulatory Orders Medication Instructions Recorded Confirmed Trazodone HCl 50 mg PO HS 10/15/12 04/04/17 glipiZIDE [Glucotrol] 20 mg PO BID 10/15/12 04/04/17 Atorvastatin Calcium [Lipitor] 80 mg PO HS 04/29/13 04/04/17 Omeprazole [PriLOSEC] 20 mg PO QDAC 04/29/13 04/04/17 Budesonide/Formoterol Fumarate 2 puffs IH BID 06/10/13 04/04/17 [Symbicort 160-4.5 Mcg Inhaler] Losartan [Cozaar] 50 mg PO DAILY 06/10/13 04/04/17 Calcium Carbonate/Vitamin D3 2 each PO DAILY 02/14/17 04/04/17 [Calcium 600-Vit D3 400 Tablet] Furosemide 40 mg PO BID 02/14/17 02/14/17 Magnesium Oxide 500 mg PO BID 02/14/17 04/04/17 Metoprolol Succinate [Toprol Xl] 100 mg PO BID 02/14/17 04/04/17 Multivitamin [Multiple Vitamins] 1 each PO DAILY 02/14/17 04/04/17 Potassium Chloride [K-Dur] 20 meq PO 0800 02/14/17 04/04/17 SITagliptin [Januvia] 100 mg PO DAILY 02/14/17 04/04/17 Tamsulosin [Flomax] 0.4 mg PO DAILY 02/14/17 04/04/17 Warfarin Sodium 7.5 mg PO SUTUTHSA 02/14/17 04/04/17 Warfarin Sodium [Coumadin] 10 mg PO MOWEFR 02/14/17 04/04/17 Ipratropium/Albuterol [Duoneb] 3 ml INH RTQID PRN neb 02/18/17 Magnesium Oxide [Mag Ox] 400 mg PO DAILY tablet 02/18/17 04/04/17 Amiodarone [Pacerone] 200 mg PO DAILY 04/04/17 04/04/17 - Allergies Allergies/Adverse Reactions: Allergies Allergy/AdvReac Type Severity Reaction Status Date / Time No Known Drug Allergies Allergy Verified 04/04/17 16:39 - Social History Does the pt smoke?: Yes Smoking Status: Current every day smoker Does the pt drink ETOH?: No Does the pt have substance abuse?: No - POLST Patient has POLST: No POLST Status: Full Code PD ED PE NORMAL - Vitals Vital signs reviewed: Yes - General General: Alert and oriented X 3 - HEENT HEENT: PERRL, Other (trach) - Neck Neck: Supple, no meningeal sign - Cardiac Cardiac: RRR - Respiratory Respiratory: No respiratory distress, Other (coarse ronchi [place]) - Abdomen Abdomen: Soft, Non tender - Derm Derm: Normal color - Extremities Extremities: No deformity, Normal ROM s pain, No edema, No calf tenderness / cord - Neuro Neuro: Alert and oriented X 3 Results - Vitals Vitals: Vital Signs - 24 hr 04/04/17 04/04/17 16:31 18:08 Temperature 36.5 C Heart Rate 75 78 Respiratory 20 17 Rate Blood Pressure 101/76 128/76 O2 Saturation 94 98 Oxygen O2 Source Room air - EKG (time done) 1647 Rate: Rate (enter#) (78) Rhythm: NSR [place]: Normal Ischemia: Q waves (inferior) - Labs Labs: Laboratory Tests 04/04/17 04/04/17 04/04/17 17:00 17:00 17:00 WBC 12.3 H RBC 5.83 Hgb 13.2 L Hct 41.9 L MCV 72.0 L MCH 22.7 L MCHC 31.5 L RDW 22.4 H Plt Count 369 MPV 7.8 Neut # 9.7 H Lymph # 1.5 [place] # 0.8 Eos # 0.1 Baso # 0.2 H Absolute Nucleated RBC 0.01 Nucleated RBC % 0.1 Manual Slide Review Indicated Platelet Estimate NORMAL (130-450,000) Platelet Morphology NORMAL APPEARANCE RBC Morph Micro Appear 1+ OVALOCYTES PT INR Sodium 136 Potassium 2.6 L Chloride 93 L Carbon Dioxide 25 Anion Gap 18.0 H BUN 34 H Creatinine 1.5 H Estimated GFR (MDRD) 46 L Glucose 189 H Calcium 6.7 L Total Bilirubin 0.9 AST 18 ALT 18 Alkaline Phosphatase 57 Troponin I < 0.04 Total Protein 7.0 Albumin 3.7 Globulin 3.3 Albumin/Globulin Ratio 1.1 Lipase 33 Urine Color Urine Clarity Urine pH Ur Specific [place] Urine Protein Urine Glucose (UA) Urine Ketones Urine Occult Blood Urine Nitrite Urine Bilirubin Urine Urobilinogen Ur Leukocyte Esterase Ur Microscopic Review Urine Culture Comments 04/04/17 04/04/17 17:00 17:54 WBC RBC Hgb Hct MCV MCH MCHC RDW Plt Count MPV Neut # Lymph # [place] # Eos # Baso # Absolute Nucleated RBC Nucleated RBC % Manual Slide Review Platelet Estimate Platelet Morphology RBC Morph Micro Appear PT 19.8 H INR 1.8 H Sodium Potassium Chloride Carbon Dioxide Anion Gap BUN Creatinine Estimated GFR (MDRD) Glucose Calcium Total Bilirubin AST ALT Alkaline Phosphatase Troponin I Total Protein Albumin Globulin Albumin/Globulin Ratio Lipase Urine Color YELLOW Urine Clarity CLEAR Urine pH 6.0 Ur Specific [place] 1.010 Urine Protein NEGATIVE Urine Glucose (UA) NEGATIVE Urine Ketones NEGATIVE Urine Occult Blood NEGATIVE Urine Nitrite NEGATIVE Urine Bilirubin NEGATIVE Urine Urobilinogen 0.2 (NORMAL) Ur Leukocyte Esterase NEGATIVE Ur Microscopic Review NOT INDICATED Urine Culture Comments NOT INDICATED - Rads (name of study) CXR Radiology: See rad report (NACPD) PD MEDICAL DECISION MAKING - ED course ED course: profound weakness 2/2 new mod to severe hypokalemia in a 71 male with many comorbidities - will start repleting in ER but merits obs overnight until K up and safe to dc also new renal insuff work up does not reveal an infectious or cardiac cause of weakness Departure - Departure Disposition: ED Place in Observation Clinical Impression: Hypokalemia, Weakness, Renal insufficiency Condition: Fair
[2017-04-04 17:19] LABS: INR 1.8 (0.8-1.2); PT - PROTHROMBIN TIME 19.8 secs (9.9-12.6)
[2017-04-04 17:22] LABS: ALBUMIN/GLOBULIN RATIO 1.1 (1.0-2.2); BILIRUBIN,TOTAL 0.9 mg/dL (0.2-1.0); CALCIUM 6.7 mg/dL (8.5-10.3); CREATININE 1.5 mg/dL (0.6-1.2); POTASSIUM 2.6 mmol/L (3.5-5.0)
--- NOTE | 2017-04-04 17:24 | XRAY Preliminary Report ---
Exam: XR CHEST 1 VIEW IMPRESSION: No acute disease. [facility] SITE ID: [id number]
--- NOTE | 2017-04-04 17:27 | XRAY Report ---
EXAM: CHEST RADIOGRAPHY EXAM DATE: 04/04/2017 04:57 PM. CLINICAL HISTORY: Weakness. COMPARISON: 02/15/2017. TECHNIQUE: 1 view. FINDINGS: Lungs/Pleura: Mildly hyperexpanded with coarse lung markings. No localized infiltrate, consolidation, effusion, or pneumothorax. Mediastinum: Within exam limitations, the cardiomediastinal contour is normal. Upper lobe vessels not distended. Other: Permanent pacemaker on the left with intact leads. Tracheostomy in place. Status post median s ternotomy. Degenerative changes. IMPRESSION: No acute disease. [facility] Referring Provider Line: [phone] SITE ID: [id number]
[2017-04-04 17:48] LABS: PLATELET ESTIMATE, MANUAL NORMAL (130-450,000) (NORMAL); PLATELET MORPHOLOGY NORMAL APPEARANCE (NORMAL)
[2017-04-04 18:02] LABS: BILIRUBIN,URINE NEGATIVE (NEGATIVE)
[2017-04-04 18:03] LABS: UA CHARGE (STRIP ONLY) YES; UR CULTURE IF IND NOT INDICATED
[2017-04-04] MEDS ORDERED: POTASSIUM CHLOR 10 MEQ/100 ML 10 MEQ/100 ML BAG IV ONE ×2 (18:23→18:53)
[2017-04-04] MEDS ORDERED: POTASSIUM CHLORIDE 20 MEQ TABLET PO STA (18:23)
[2017-04-04] MEDS ORDERED: POTASSIUM CHLORIDE 20 MEQ TABLET PO ONE (18:53)
[2017-04-04] MEDS ORDERED: MORPHINE 2 MG/ML SYRINGE IVP PRN (20:33)
[2017-04-04] MEDS ORDERED: PROMETHAZINE 25 MG/1 ML VIAL IM PRN (20:33)
[2017-04-04] MEDS ORDERED: PROCHLORPERAZINE 10 MG/2 ML VIAL IVP PRN (20:33)
[2017-04-04] MEDS ORDERED: ONDANSETRON 4 MG/2 ML VIAL IVP PRN (20:33)
[2017-04-04] MEDS ORDERED: ACETAMINOPHEN 325 MG TABLET PO PRN (20:33)
[2017-04-04] MEDS ORDERED: SODIUM CHLORIDE FLUSH 0.9% 10 ML SYRINGE IVP PRN (20:33)
[2017-04-04] MEDS ORDERED: ZOLPIDEM 5 MG TABLET PO PRN (20:33)
[2017-04-04] MEDS ORDERED: oxyCODONE 5 MG TABLET PO PRN ×2 (20:33)
[2017-04-04] MEDS: BUDESONIDE 0.5 MG/2 ML NEB INH SCH (21:00)
[2017-04-04] MEDS ORDERED: NON FORMULARY MED (Metoprolol Succinate [Toprol Xl] 100 MG) PO SCH (21:00)
[2017-04-04] MEDS ORDERED: SODIUM CHLORIDE 0.9% 1,000 ML IV ONE (22:00)
[2017-04-04] MEDS: NS W/20 MEQ KCL 1,000 ML IV SCH (22:01)
[2017-04-04] MEDS: SODIUM CHLORIDE FLUSH 0.9% 10 ML SYRINGE IVP SCH (22:08)
[2017-04-04] MEDS: POTASSIUM CHLOR 10 MEQ/100 ML 10 MEQ/100 ML BAG IV SCH ×2 (22:08→23:17)
[2017-04-04] MEDS: INSULIN ASPART 300 UNIT/3 ML PEN SUBQ SCH (22:16)
[2017-04-04] MEDS ORDERED: WARFARIN 5 MG TABLET PO SCH (22:45)
[2017-04-04] MEDS: traZODone 50 MG TABLET PO SCH (23:11)
[2017-04-04] MEDS: NICOTINE 21 MG PATCH TOP SCH (23:15)
[2017-04-04] MEDS: ATORVASTATIN 40 MG TABLET PO SCH (23:24)
[2017-04-05] MEDS: POTASSIUM CHLOR 10 MEQ/100 ML 10 MEQ/100 ML BAG IV SCH ×2 (00:32→01:58)
[2017-04-05 02:47] LABS: BASOPHILS # (AUTO) 0.1 10^3/uL (0.0-0.1); BASOPHILS % (AUTO) 0.7 %; EOSINOPHILS # (AUTO) 0.1 10^3/uL (0.0-0.7); EOSINOPHILS % (AUTO) 1.2 %; HCT - HEMATOCRIT 37.5 % (42.0-52.0); HGB - HEMOGLOBIN 12.4 g/dL (14.0-18.0); LYMPHOCYTES # (AUTO) 2.6 10^3/uL (1.5-3.5); LYMPHOCYTES % (AUTO) 23.7 %; MEAN CORPUSCULAR HEMOGLOBIN 23.5 pg (27.0-31.0); MONOCYTES # (AUTO) 0.8 10^3/uL (0.0-1.0); MONOCYTES % (AUTO) 7.4 %; NEUTROPHILS # (AUTO) 7.3 10^3/uL (1.5-6.6); RED BLOOD COUNT 5.28 10^6/uL (4.70-6.10); UNCORRECTED WHITE BLOOD COUNT 10.8 x10^3/uL; WHITE BLOOD COUNT 10.8 x10^3/uL (4.8-10.8)
[2017-04-05 03:04] LABS: HEMOGLOBIN A1C 1.25 g/dL
[2017-04-05 03:05] LABS: BUN - BLOOD UREA NITROGEN 31 mg/dL (6-20); CALCIUM 6.3 mg/dL (8.5-10.3); CARBON DIOXIDE - CO2 24 mmol/L (21-32); CHLORIDE 98 mmol/L (101-111); CREATININE 1.2 mg/dL (0.6-1.2); GFR - MDRD 60 (>89); GLUCOSE 114 mg/dL (70-100); PHOSPHORUS 3.4 mg/dL (2.5-4.6); POTASSIUM 3.1 mmol/L (3.5-5.0); SODIUM 139 mmol/L (135-145)
[2017-04-05 03:06] LABS: MAGNESIUM 0.4 mg/dL (1.7-2.8)
[2017-04-05] MEDS ORDERED: MAGNESIUM SULFATE 2 GRAM 2 GM/50 ML BAG IV ONE ×2 (03:06→19:00)
[2017-04-05] MEDS ORDERED: CALCIUM GLUCONATE 2,000 MG in SODIUM CHLORIDE 0.9% 100ML 100 ML IV ONE (03:07)
[2017-04-05 03:08] LABS: VBG PH 7.444 (7.31-7.41)
[2017-04-05 03:09] LABS: CALCIUM, IONIZED 0.78 mmol/L (1.15-1.33)
--- NOTE | 2017-04-05 03:29 | HISTORY & PHYSICAL EXAMINATION ---
Chief Complaint - Chief Complaint Chief Complaint: Generalized weakness History of Present Illness - Admitted From Admitted From:: Emergency department - History Obtained From Records Reviewed: Yes History obtained from: Patient Exam Limitations: None - History of Present Illness HPI Comment/Other: Patient is a 71-year-old gentleman with a past medical history significant for hypertension, hyperlipidemia, coronary artery disease status post CABG, congestive heart failure with an ejection fraction of 50-55% on his last echo in 01/2017, COPD on 2-3 L of oxygen at night, history of laryngeal cancer status post tracheostomy, obstructive sleep apnea, diabetes and osteoarthritis who presented to the emergency department with a chief complaint of generalized weakness. The patient states that he is just been feeling weak over the last few days. He states that 2 days ago he began feeling nauseated and has vomited several times over the last several days. He states that he has had poor appetite and had poor oral intake as he just not been feeling well. The patient denies having had any abdominal pain with the vomiting. He denies having had any fevers, chills or diarrhea. The patient states that he has been so weak that he can hardly walk around with his walker. He states today around noon he could not even get up out of his bed he was so weak so he finally decided to come into the emergency department. The patient states that he does feel short of breath but it is no different from his chronic shortness of breath. Patient denies any urinary urgency, frequency or dysuria. The patient denies any new cough, chest pain, neck stiffness, back pain or any focal neurologic deficits. Patient denies any headache, runny nose, sore throat, nasal congestion, neck pain, difficulty swallowing, recent unintentional weight loss, night sweats, muscle aches, joint pains, joint swelling, increased lower extremity swelling, orthopnea, PND, or any sick contacts. On presentation to the emergency department the patient was afebrile his blood pressure was borderline low but otherwise vital signs were all within normal limits. The patient's lab work did reveal a slight leukocytosis of 12.3 along with a significant hypokalemia of 2.6 and acute kidney injury with a creatinine up to 1.5 and BUN of 34. The patient appeared quite dry on examination. The patient's magnesium was 0.4 and calcium 6.3. The patient had a negative UA and the patient's chest x-ray showed no acute disease. Given the patient's severe electrolyte derangements and generalized weakness the patient was placed in observation for electrolyte replacement, hydration and PT evaluation. History - Past Medical History Cardiovascular: reports: Congestive heart failure, Hypertension, High cholesterol, Coronary artery disease (Status post CABG in 04/2012), [place] Respiratory: reports: COPD, Shortness of breath, Sleep apnea, CPAP use, Other ( prior laryngeal surgery with trach chronically. ) Neuro: reports: None Endocrine/Autoimmune: reports: Type 2 diabetes GI: reports: GERD : reports: None HEENT: reports: Other Psych: reports: None Musculoskeletal: reports: Osteoarthritis Derm: reports: None MRSA Hx?: No Other Past Medical History: Laryngeal cancer - Past Surgical History General: reports: Other Cardiovascular: reports: CABG HEENT: reports: Cataracts, Tracheostomy - Family & Social History Family History Comment/Other: Patient was adopted and his children are healthy. Social History Notes: Patient states that he lives alone in [place] at a [facility]. He has 2 children 1 of whom lives in the area and the other one lives in [place]. The patient is , he states his in 2000 and currently he is alone and takes care of himself. He states he is able to care for his own trach and does not have any caregivers or but does have somebody help in cleaning the home. The patient states that he smokes 1-1-1/2 packs of cigarettes a day and has been smoking for over 50 years. He denies any alcohol or drug use. - Substance History Use: Uses substance without health or social issues: Tobacco - POLST Patient has POLST: No POLST Status: Full Code Meds/Allgy - Home Medications Home Medications: Ambulatory Orders Medication Instructions Recorded Confirmed Trazodone HCl 50 mg PO HS 10/15/12 04/04/17 glipiZIDE [Glucotrol] 20 mg PO BID 10/15/12 04/04/17 Atorvastatin Calcium [Lipitor] 80 mg PO HS 04/29/13 04/04/17 Omeprazole [PriLOSEC] 20 mg PO QDAC 04/29/13 04/04/17 Budesonide/Formoterol Fumarate 2 puffs IH BID 06/10/13 04/04/17 [Symbicort 160-4.5 Mcg Inhaler] Losartan [Cozaar] 50 mg PO DAILY 06/10/13 04/04/17 Calcium Carbonate/Vitamin D3 2 each PO DAILY 02/14/17 04/04/17 [Calcium 600-Vit D3 400 Tablet] Furosemide 40 mg PO BID 02/14/17 02/14/17 Magnesium Oxide 500 mg PO BID 02/14/17 04/04/17 Metoprolol Succinate [Toprol Xl] 100 mg PO BID 02/14/17 04/04/17 Multivitamin [Multiple Vitamins] 1 each PO DAILY 02/14/17 04/04/17 Potassium Chloride [K-Dur] 20 meq PO 0800 02/14/17 04/04/17 SITagliptin [Januvia] 100 mg PO DAILY 02/14/17 04/04/17 Tamsulosin [Flomax] 0.4 mg PO DAILY 02/14/17 04/04/17 Warfarin Sodium 7.5 mg PO SUTUTHSA 02/14/17 04/04/17 Warfarin Sodium [Coumadin] 10 mg PO MOWEFR 02/14/17 04/04/17 Ipratropium/Albuterol [Duoneb] 3 ml INH RTQID PRN neb 02/18/17 Magnesium Oxide [Mag Ox] 400 mg PO DAILY tablet 02/18/17 04/04/17 Amiodarone [Pacerone] 200 mg PO DAILY 04/04/17 04/04/17 - Allergies Allergies/Adverse Reactions: Allergies Allergy/AdvReac Type Severity Reaction Status Date / Time No Known Drug Allergies Allergy Verified 04/04/17 16:39 Review of Systems - Other Findings Other Findings: A comprehensive review of systems was performed the pertinent positives and negatives are stated above in the HPI and the remainder of the review of systems is negative. Exam - Vital Signs Reviewed Vital Signs: Yes Vital Signs: Vital Signs x48h Temp Pulse Pulse Resp BP BP Pulse Ox 04/05/17 02:20 81 111/60 04/04/17 23:45 36.6 C 74 22 103/66 94 04/04/17 21:47 36.5 C 86 22 98/61 98 04/04/17 20:42 76 18 116/77 97 - Physical Exam General Appearance: positive: No acute distress, Alert, Other (Patient has tracheostomy and uses covering of the tracheostomy to speak) Eyes Bilateral: positive: Normal inspection, PERRL, EOMI, No lid inflammation, Conjunctivae nml, No scleral icterus ENT: positive: ENT inspection nml, Pharynx nml, Dry mucous membranes. negative : Purulent nasal drainage, Pharyngeal erythema, Oral lesions Neck: positive: Nml inspection, Thyroid nml, No JVD, Trachea midline, Other ( Tracheostomy). negative: Thyromegaly, Lymphadenopathy (R), Lymphadenopathy (L) , Stiff neck, Carotid bruit, Tracheal deviation Respiratory: positive: Chest non-tender, No respiratory distress, Other ( Decreased breath sounds at the bases) Cardiovascular: positive: Regular rate & rhythm, No murmur, No gallop Peripheral Pulses: positive: 2+ Abdomen: positive: Non-tender, No organomegaly, Nml bowel sounds, No distention. negative: Guarding, Rebound, Hepatomegaly Back: positive: Nml inspection. negative: CVA tenderness (R), CVA tenderness (L ) Skin: positive: Color nml, No rash, Warm. negative: Diaphoresis, Pallor, Skin rash Extremities: positive: Non-tender, Full ROM, Nml appearance, No pedal edema Neurologic/Psychiatric: positive: Oriented x3, CN's nml (2-12), Motor nml, Sensation nml, Mood/affect nml Conclusion/Plan - Problem List (1) Generalized weakness Conclusion/Plan: The patient presents with generalized weakness. Patient does not appear to have any kind of infection as his UA is negative and chest x-ray is negative. The patient does not have any other signs or symptoms of infection at this time. The most likely cause of the patient's generalized weakness appears to be the fact that he is dehydrated. The patient is dehydrated secondary to having nausea vomiting and poor oral intake. This is likely in conjunction with the fact that he is on Lasix at home and appears to be very dry on examination and likely has not been needing the Lasix which is been drying him out further over the last couple of days. The patient's generalized weakness is also secondary to his severe electrolyte deficiencies including hypokalemia, hypocalcemia and hypomagnesemia. The patient does not have any focal neurologic deficits to suggest a stroke. Plan: Patient will be given IV fluids and electrolyte replacement We will get a physical therapy consultation to see if the patient needs any outpatient physical therapy Monitor patient closely (2) Hypokalemia Conclusion/Plan: The patient has significant hypokalemia on presentation with a potassium of 2.6. This is likely secondary to the patient vomiting at home as well as the fact that he is on Lasix. The patient does take a potassium supplement at home but this is not being enough for the patient and has resulted in him having severe hypokalemia with potassium of 2.6. Plan: Patient's potassium will be replaced with IV and p.o. potassium We will continue to monitor the patient's potassium Patient will be given IV fluids (3) RUSLAN (acute kidney injury) Conclusion/Plan: Patient's creatinine is elevated at 1.5 from his baseline creatinine of 0.9 from just 1 month earlier. The patient appears to have prerenal azotemia likely secondary to dehydration from nausea vomiting and Lasix use. Plan: Patient will be given IV fluids We will avoid any nephrotoxic agents We will continue to monitor the patient's creatinine. (4) Hypomagnesemia Conclusion/Plan: The patient does present with hypomagnesemia. The patient's magnesium is severely decreased at 0.4. This is likely secondary to the patient's vomiting and dehydration. The patient also has been on Lasix which could also be depleting his magnesium supply. Plan: Patient will be given IV and p.o. magnesium replacement We will continue to monitor patient's magnesium (5) Hypocalcemia Conclusion/Plan: The patient has severe hypocalcemia on presentation his calcium is 6.3 and ionized calcium is 0.78. This is all likely secondary to dehydration and poor nutrition. The low calcium is likely contributing to the patient's symptoms of generalized weakness Plan: Patient will be given calcium replacement IV and p.o. We will continue to monitor the patient's calcium (6) Congestive heart failure Conclusion/Plan: Patient has history of systolic heart failure. The patient appears to be stable from CHF standpoint. Patient is on optimal medication with Cozaar and Toprol-XL. Patient currently appears to be euvolemic the patient currently appears to be hypovolemic and therefore we will hold his Lasix and give him IV fluids. Plan: We will continue patient's optimal treatment with Toprol-XL and Cozaar however we are holding the patient's Lasix given his dehydration. The patient will be monitored closely for development of pulmonary congestion or CHF exacerbation in the setting of getting IV fluids. Qualifiers: Congestive heart failure type: systolic Congestive heart failure chronicity : chronic Qualified Code(s): I50.22 - Chronic systolic (congestive) heart failure (7) Diabetes Conclusion/Plan: Patient has history of diabetes. On presentation the patient's blood sugar is slightly elevated at 189. The patient's hemoglobin A1c is 10.5. Patient is on Januvia and glipizide at home. The patient being hyperglycemic at home persistently could also contribute to his dehydration. Plan: Patient will be placed on sliding scale insulin while he is hospitalized Patient will be on a diabetic diet We will monitor the patient's glucose before meals at bedtime Qualifiers: Diabetes mellitus type: type 2 Diabetes mellitus complication status: without complication Diabetes mellitus watermaster insulin use: without watermaster use Qualified Code(s): E11.9 - Type 2 diabetes mellitus without complications - Lab Results Lab results reviewed: Yes Fish Bones: 04/05/17 02:39 04/05/17 02:39 Other Lab Results: Laboratory Results WBC 10.8 x10^3/uL (4.8-10.8) 04/05/17 02:39 RBC 5.28 10^6/uL (4.70-6.10) 04/05/17 02:39 Hgb 12.4 g/dL (14.0-18.0) L 04/05/17 02:39 Hct 37.5 % (42.0-52.0) L 04/05/17 02:39 MCV 71.0 fL (80.0-94.0) L 04/05/17 02:39 MCH 23.5 pg (27.0-31.0) L 04/05/17 02:39 MCHC 33.0 g/dL (32.0-36.0) 04/05/17 02:39 RDW 22.0 % (12.0-15.0) H 04/05/17 02:39 Plt Count 315 10^3/uL (130-450) 04/05/17 02:39 MPV 8.0 fL (7.4-11.4) 04/05/17 02:39 Neut # 7.3 10^3/uL (1.5-6.6) H 04/05/17 02:39 Lymph # 2.6 10^3/uL (1.5-3.5) 04/05/17 02:39 [place] # 0.8 10^3/uL (0.0-1.0) 04/05/17 02:39 Eos # 0.1 10^3/uL (0.0-0.7) 04/05/17 02:39 Baso # 0.1 10^3/uL (0.0-0.1) 04/05/17 02:39 Absolute Nucleated RBC 0.00 x10^3/uL 04/05/17 02:39 Nucleated RBC % 0.0 /100WBC 04/05/17 02:39 Manual Slide Review Indicated 04/05/17 02:39 Platelet Estimate NORMAL (130-450,000) (NORMAL) 04/05/17 02:39 Platelet Morphology NORMAL APPEARANCE (NORMAL) 04/04/17 17:00 RBC Morph Micro Appear 1+ ANISOCYTOSIS (NORMAL) 1+ MICROCYTOSIS (NORMAL) 1+ OVALOCYTES (NORMAL) 04/04/17 17:00 RBC Morph Micro Appear 1+ ANISOCYTOSIS (NORMAL) 1+ MICROCYTOSIS (NORMAL) 1+ OVALOCYTES (NORMAL) 04/04/17 17:00 RBC Morph Micro Appear 1+ ANISOCYTOSIS (NORMAL) 1+ MICROCYTOSIS (NORMAL) 1+ OVALOCYTES (NORMAL) 1+ HYPOCHROMASIA (NORMAL) 04/05/17 02:39 RBC Morph Micro Appear 1+ ANISOCYTOSIS (NORMAL) 1+ MICROCYTOSIS (NORMAL) 1+ OVALOCYTES (NORMAL) 1+ HYPOCHROMASIA (NORMAL) 04/05/17 02:39 RBC Morph Micro Appear 1+ ANISOCYTOSIS (NORMAL) 1+ MICROCYTOSIS (NORMAL) 1+ OVALOCYTES (NORMAL) 1+ HYPOCHROMASIA (NORMAL) 04/05/17 02:39 RBC Morph Micro Appear 1+ ANISOCYTOSIS (NORMAL) 1+ MICROCYTOSIS (NORMAL) 1+ OVALOCYTES (NORMAL) 1+ HYPOCHROMASIA (NORMAL) 04/05/17 02:39 PT 19.8 secs (9.9-12.6) H 04/04/17 17:00 INR 1.8 (0.8-1.2) H 04/04/17 17:00 VBG pH 7.444 (7.31-7.41) H 04/05/17 02:39 Ionized Calcium 0.78 mmol/L (1.15-1.33) L* 04/05/17 02:39 Sodium 139 mmol/L (135-145) 04/05/17 02:39 Potassium 3.1 mmol/L (3.5-5.0) L 04/05/17 02:39 Chloride 98 mmol/L (101-111) L 04/05/17 02:39 Carbon Dioxide 24 mmol/L (21-32) 04/05/17 02:39 Anion Gap 17.0 (6-13) H 04/05/17 02:39 BUN 31 mg/dL (6-20) H 04/05/17 02:39 Creatinine 1.2 mg/dL (0.6-1.2) 04/05/17 02:39 Estimated GFR (MDRD) 60 (>89) L 04/05/17 02:39 Glucose 114 mg/dL (70-100) H 04/05/17 02:39 Glycated Hemoglobin 10.5 % (4.6-6.2) H 04/05/17 02:39 Estim Average Glucose 255 (70-100) H 04/05/17 02:39 Calcium 6.3 mg/dL (8.5-10.3) L* 04/05/17 02:39 Ionized Calcium YES 04/05/17 02:39 Phosphorus 3.4 mg/dL (2.5-4.6) 04/05/17 02:39 Magnesium 0.4 mg/dL (1.7-2.8) L* 04/05/17 02:39 Total Bilirubin 0.9 mg/dL (0.2-1.0) 04/04/17 17:00 AST 18 IU/L (10-42) 04/04/17 17:00 ALT 18 IU/L (10-60) 04/04/17 17:00 Alkaline Phosphatase 57 IU/L (42-121) 04/04/17 17:00 Troponin I < 0.04 ng/mL (<0.49) 04/04/17 17:00 B-Natriuretic Peptide 73 pg/mL (5-100) 04/05/17 02:39 Total Protein 7.0 g/dL (6.7-8.2) 04/04/17 17:00 Albumin 3.7 g/dL (3.2-5.5) 04/04/17 17:00 Globulin 3.3 g/dL (2.1-4.2) 04/04/17 17:00 Albumin/Globulin Ratio 1.1 (1.0-2.2) 04/04/17 17:00 Lipase 33 U/L (22-51) 04/04/17 17:00 Urine Color YELLOW 04/04/17 17:54 Urine Clarity CLEAR (CLEAR) 04/04/17 17:54 Urine pH 6.0 PH (5.0-7.5) 04/04/17 17:54 Ur Specific [place] 1.010 (1.002-1.030) 04/04/17 17:54 Urine Protein NEGATIVE mg/dL (NEGATIVE) 04/04/17 17:54 Urine Glucose (UA) NEGATIVE mg/dL (NEGATIVE) 04/04/17 17:54 Urine Ketones NEGATIVE mg/dL (NEGATIVE) 04/04/17 17:54 Urine Occult Blood NEGATIVE (NEGATIVE) 04/04/17 17:54 Urine Nitrite NEGATIVE (NEGATIVE) 04/04/17 17:54 Urine Bilirubin NEGATIVE (NEGATIVE) 04/04/17 17:54 Urine Urobilinogen 0.2 (NORMAL) E.U./dL (NORMAL) 04/04/17 17:54 Ur Leukocyte Esterase NEGATIVE (NEGATIVE) 04/04/17 17:54 Ur Microscopic Review NOT INDICATED 04/04/17 17:54 Urine Culture Comments NOT INDICATED 04/04/17 17:54 - Diagnostic Imaging Results Diagnostic Imaging Results: positive: Final report reviewed Diagnostic Imaging Results Comments: Chest x-ray Impression: No acute disease - EKG Results EKG Interpreted Independently: Yes Issues/Core Measures - Anticipated LOS Anticipated Stay Length: Less than 2 midnights - DVT/VTE - Prophylaxis VTE/DVT Device ordered at admit?: Yes
[2017-04-05 03:34] LABS: PLATELET ESTIMATE, MANUAL NORMAL (130-450,000) (NORMAL)
[2017-04-05] MEDS ORDERED: MAGNESIUM OXIDE 400 MG TABLET PO SCH (04:00)
[2017-04-05] MEDS: SODIUM CHLORIDE FLUSH 0.9% 10 ML SYRINGE IVP SCH ×3 (06:09→20:34)
[2017-04-05] MEDS: IPRATROPIUM/ALBUTEROL 3 ML NEB INH PRN ×3 (07:25→19:00)
[2017-04-05] MEDS: BUDESONIDE 0.5 MG/2 ML NEB INH SCH ×2 (07:25→19:00)
[2017-04-05] MEDS: NS W/20 MEQ KCL 1,000 ML IV SCH ×2 (07:36→17:11)
[2017-04-05] MEDS: POTASSIUM CHLORIDE 20 MEQ TABLET PO SCH ×2 (07:38→17:11)
[2017-04-05] MEDS: INSULIN ASPART 300 UNIT/3 ML PEN SUBQ SCH ×4 (09:23→21:07)
[2017-04-05] MEDS: AMIODARONE 200 MG TABLET PO SCH (09:26)
[2017-04-05] MEDS: TAMSULOSIN 0.4 MG CAPSULE PO SCH (09:26)
[2017-04-05] MEDS: MULTIVITAMIN TABLET PO SCH (09:26)
[2017-04-05] MEDS: FAMOTIDINE 20 MG TABLET PO SCH (09:26)
[2017-04-05] MEDS: MAGNESIUM OXIDE 400 MG TABLET PO SCH (09:26)
[2017-04-05] MEDS: POLYETHYLENE GLYCOL 3350 17 GM PACKET PO SCH (09:27)
[2017-04-05] MEDS: NICOTINE 21 MG PATCH TOP SCH (09:27)
[2017-04-05] MEDS: METOPROLOL SUCCINATE 50 MG TABLET PO SCH ×2 (09:27→21:08)
[2017-04-05] MEDS ORDERED: WARFARIN 2.5 MG TABLET PO SCH (14:00)
--- NOTE | 2017-04-05 14:48 | PROVIDER PROGRESS NOTE ---
Subjective - Prog Note Date Prog Note Date: 04/05/17 Prog Note Time: 14:46 - Subjective Pt reports feeling: Improved Subjective: But he is still moderately weak. At home he is ambulatory with an occasional walker. Here he can still stand up and walk but requires standby assist, and is pretty shaky in his legs when he walks with physical therapy. He has had no further emesis. He is received quite a bit of IV fluids for hydration as well as potassium magnesium and calcium supplementation. Current Medications - Current Medications Current Medications: Active Medications Acetaminophen (Tylenol) 650 mg PO Q4HR PRN PRN Reason: Pain 1 to 4 Albuterol/Ipratropium (Duoneb) 3 ml INH RTQID PRN PRN Reason: Wheezing Last Admin: 04/05/17 11:43 Dose: 3 ml Amiodarone HCl (Pacerone) 200 mg PO DAILY [facility] Last Admin: 04/05/17 09:26 Dose: 200 mg Atorvastatin Calcium (Lipitor) 80 mg PO HS RONA Last Admin: 04/04/17 23:24 Dose: 80 mg Budesonide (Pulmicort) 0.5 mg INH RTBID RONA Last Admin: 04/05/17 07:25 Dose: 0.5 mg Famotidine (Pepcid) 20 mg PO DAILY RONA Last Admin: 04/05/17 09:26 Dose: 20 mg Potassium Chloride/Sodium Chloride (Normal Saline 0.9% W/20 Meq Kcl) 1,000 mls @ 100 mls/hr IV .Q10H RONA Last Admin: 04/05/17 07:36 Dose: 100 mls/hr Insulin Aspart (Novolog) 1 - 5 unit SUBQ 0800,1200,1700,2100 RONA PRN Reason: Protocol Last Admin: 04/05/17 13:25 Dose: 3 unit Magnesium Oxide (Mag Ox) 400 mg PO DAILY RONA Last Admin: 04/05/17 09:26 Dose: 400 mg Metoprolol Succinate (Toprol Xl) 100 mg PO BID RONA Last Admin: 04/05/17 09:27 Dose: 100 mg Morphine Sulfate (Morphine) 2 mg IVP Q2H PRN PRN Reason: Pain 8 to 10 Multivitamins (Theragran) 1 tab PO DAILY RONA Last Admin: 04/05/17 09:26 Dose: 1 tab Nicotine (Nicoderm) 1 patch TOP DAILY RONA Last Admin: 04/05/17 09:27 Dose: 1 patch Ondansetron HCl (Zofran Inj) 4 mg IVP Q6HR PRN PRN Reason: Nausea / Vomiting Oxycodone HCl (Roxicodone) 5 mg PO Q4HR PRN PRN Reason: Pain 5 to 7 Oxycodone HCl (Roxicodone) 10 mg PO Q4HR PRN PRN Reason: Pain 8 to 10 Polyethylene Glycol (Miralax) 17 gm PO DAILY [facility] Last Admin: 04/05/17 09:27 Dose: Not Given Potassium Chloride (K-Dur) 40 meq PO BIDWM [facility] Last Admin: 04/05/17 07:38 Dose: 40 meq Prochlorperazine Edisylate (Compazine Inj) 10 mg IVP Q6HR PRN PRN Reason: Nausea / Vomiting Promethazine HCl (Phenergan Inj) 25 mg IM Q6HR PRN PRN Reason: Nausea / Vomiting Sodium Chloride (Normal Saline Flush 0.9%) 10 ml IVP PRN PRN PRN Reason: NEEDED PER PROVIDER ORDERS Sodium Chloride (Normal Saline Flush 0.9%) 10 ml IVP Q8HR [facility] Last Admin: 04/05/17 13:26 Dose: Not Given Tamsulosin HCl (Flomax) 0.4 mg PO DAILY [facility] Last Admin: 04/05/17 09:26 Dose: 0.4 mg Trazodone HCl (Desyrel) 50 mg PO HS [facility] Last Admin: 04/04/17 23:11 Dose: 50 mg Warfarin Sodium (Coumadin) 10 mg PO MoWeFr@1400 [facility] Last Admin: 04/04/17 23:24 Dose: 10 mg Warfarin Sodium (Coumadin) 7.5 mg PO SuTuThSa@1400 [facility] Last Admin: 04/05/17 13:26 Dose: 7.5 mg Zolpidem Tartrate (Ambien) 5 mg PO QPM PRN PRN Reason: Insomnia Trazodone HCl 50 mg PO QPM PRN 10/15/12 glipiZIDE [Glucotrol] 20 mg PO BIDAC 10/15/12 Atorvastatin Calcium [Lipitor] 80 mg PO QPM 04/29/13 Omeprazole [PriLOSEC] 20 mg PO QDAC 04/29/13 Budesonide/Formoterol Fumarate [Symbicort 160-4.5 Mcg Inhaler] 2 puffs INH BID 06/10/13 Losartan [Cozaar] 50 mg PO DAILY 06/10/13 Furosemide 40 mg PO BID 02/14/17 Metoprolol Succinate [Toprol Xl] 100 mg PO BID 02/14/17 Potassium Chloride [K-Dur] 20 meq PO QDBREAKFAST 02/14/17 SITagliptin [Januvia] 100 mg PO DAILY 02/14/17 Tamsulosin [Flomax] 0.4 mg PO DAILY 02/14/17 Warfarin Sodium 7.5 mg PO SUTUTHSA 02/14/17 Warfarin Sodium [Coumadin] 10 mg PO MOWEFR 02/14/17 Amiodarone [Pacerone] 200 mg PO DAILY 04/04/17 Albuterol Sulfate [Proair Hfa Inhaler] 2 puffs INH PRN PRN 04/05/17 Ipratropium/Albuterol [Duoneb] 3 ml INH BID 04/05/17 metFORMIN [Glucophage] 1,000 mg PO BIDWM 04/05/17 Objective - Vital Signs/Intake & Output Reviewed Vital Signs: Yes Vital Signs: Vital Signs x48h Temp Pulse Pulse Pulse Pulse Resp BP 04/05/17 12:34 36.8 C 75 18 04/05/17 11:43 67 24 04/05/17 10:30 87 80 134/74 H 04/05/17 09:30 75 04/05/17 08:32 36.2 C L 73 16 04/05/17 07:25 75 20 BP BP Pulse Ox 04/05/17 12:34 87/60 L 92 04/05/17 11:43 04/05/17 10:30 108/70 04/05/17 09:30 120/50 L 04/05/17 08:32 102/40 L 93 04/05/17 07:25 Intake & Output: Intake & Output 04/02/17 04/03/17 04/04/17 04/05/17 23:59 23:59 23:59 23:59 Intake Total 100 8.333 Balance 100 8.333 - Objective General Appearance: positive: No acute distress, Alert Eyes Bilateral: positive: PERRL ENT: positive: Dry mucous membranes, Other (tracheostomy) Neck: positive: No JVD. negative: Stiff neck, Carotid bruit Respiratory: positive: Chest non-tender, Rhonchi (With occasional cough). negative: Wheezes, Rales Cardiovascular: positive: Irregularly irregular, Systolic murmur. negative: Gallop/S4, Friction rub Skin: positive: Warm, Dry Extremities: positive: Full ROM, No pedal edema Neurologic/Psychiatric: positive: Oriented x3, Motor nml, Weakness (Generalized and mild to moderate), Depressed mood/affect (Occasionally tearful, and very sad about what is happening to him) - Lab Results Fish Bones: 04/05/17 02:39 04/05/17 02:39 Other Labs: Lab Results x24hrs 04/05/17 04/05/17 04/05/17 Range/Units 11:54 07:58 02:39 WBC (4.8-10.8) x10^3/uL RBC (4.70-6.10) 10^6/uL Hgb (14.0-18.0) g/dL Hct (42.0-52.0) % MCV (80.0-94.0) fL MCH (27.0-31.0) pg MCHC (32.0-36.0) g/dL RDW (12.0-15.0) % Plt Count (130-450) 10^3/uL MPV (7.4-11.4) fL Neut # (1.5-6.6) 10^3/uL Lymph # (1.5-3.5) 10^3/uL [place] # (0.0-1.0) 10^3/uL Eos # (0.0-0.7) 10^3/uL Baso # (0.0-0.1) 10^3/uL Absolute Nucleated RBC x10^3/uL Nucleated RBC % /100WBC Manual Slide Review Platelet Estimate (NORMAL) RBC Morph Micro Appear (NORMAL) VBG pH 7.444 H (7.31-7.41) Ionized Calcium 0.78 L* (1.15-1.33) mmol/L Sodium (135-145) mmol/L Potassium (3.5-5.0) mmol/L Chloride (101-111) mmol/L Carbon Dioxide (21-32) mmol/L Anion Gap (6-13) BUN (6-20) mg/dL Creatinine (0.6-1.2) mg/dL Estimated GFR (MDRD) (>89) Glucose (70-100) mg/dL POC Whole Bld Glucose 250 H 79 (70 - 100) mg/dL Glycated Hemoglobin (4.6-6.2) % Estim Average Glucose (70-100) Calcium (8.5-10.3) mg/dL Phosphorus (2.5-4.6) mg/dL Magnesium (1.7-2.8) mg/dL B-Natriuretic Peptide (5-100) pg/mL 04/05/17 04/05/17 04/05/17 Range/Units 02:39 02:39 02:39 WBC (4.8-10.8) x10^3/uL RBC (4.70-6.10) 10^6/uL Hgb (14.0-18.0) g/dL Hct (42.0-52.0) % MCV (80.0-94.0) fL MCH (27.0-31.0) pg MCHC (32.0-36.0) g/dL RDW (12.0-15.0) % Plt Count (130-450) 10^3/uL MPV (7.4-11.4) fL Neut # (1.5-6.6) 10^3/uL Lymph # (1.5-3.5) 10^3/uL [place] # (0.0-1.0) 10^3/uL Eos # (0.0-0.7) 10^3/uL Baso # (0.0-0.1) 10^3/uL Absolute Nucleated RBC x10^3/uL Nucleated RBC % /100WBC Manual Slide Review Platelet Estimate (NORMAL) RBC Morph Micro Appear (NORMAL) VBG pH (7.31-7.41) Ionized Calcium YES (1.15-1.33) mmol/L Sodium 139 (135-145) mmol/L Potassium 3.1 L (3.5-5.0) mmol/L Chloride 98 L (101-111) mmol/L Carbon Dioxide 24 (21-32) mmol/L Anion Gap 17.0 H (6-13) BUN 31 H (6-20) mg/dL Creatinine 1.2 (0.6-1.2) mg/dL Estimated GFR (MDRD) 60 L (>89) Glucose 114 H (70-100) mg/dL POC Whole Bld Glucose (70 - 100) mg/dL Glycated Hemoglobin 10.5 H (4.6-6.2) % Estim Average Glucose 255 H (70-100) Calcium 6.3 L* (8.5-10.3) mg/dL Phosphorus 3.4 (2.5-4.6) mg/dL Magnesium 0.4 L* (1.7-2.8) mg/dL B-Natriuretic Peptide 73 (5-100) pg/mL 04/05/17 04/04/17 Range/Units 02:39 21:53 WBC 10.8 (4.8-10.8) x10^3/uL RBC 5.28 (4.70-6.10) 10^6/uL Hgb 12.4 L (14.0-18.0) g/dL Hct 37.5 L (42.0-52.0) % MCV 71.0 L (80.0-94.0) fL MCH 23.5 L (27.0-31.0) pg MCHC 33.0 (32.0-36.0) g/dL RDW 22.0 H (12.0-15.0) % Plt Count 315 (130-450) 10^3/uL MPV 8.0 (7.4-11.4) fL Neut # 7.3 H (1.5-6.6) 10^3/uL Lymph # 2.6 (1.5-3.5) 10^3/uL [place] # 0.8 (0.0-1.0) 10^3/uL Eos # 0.1 (0.0-0.7) 10^3/uL Baso # 0.1 (0.0-0.1) 10^3/uL Absolute Nucleated RBC 0.00 x10^3/uL Nucleated RBC % 0.0 /100WBC Manual Slide Review Indicated Platelet Estimate NORMAL (130-450,000) (NORMAL) RBC Morph Micro Appear 1+ HYPOCHROMASIA (NORMAL) VBG pH (7.31-7.41) Ionized Calcium (1.15-1.33) mmol/L Sodium (135-145) mmol/L Potassium (3.5-5.0) mmol/L Chloride (101-111) mmol/L Carbon Dioxide (21-32) mmol/L Anion Gap (6-13) BUN (6-20) mg/dL Creatinine (0.6-1.2) mg/dL Estimated GFR (MDRD) (>89) Glucose (70-100) mg/dL POC Whole Bld Glucose 216 H (70 - 100) mg/dL Glycated Hemoglobin (4.6-6.2) % Estim Average Glucose (70-100) Calcium (8.5-10.3) mg/dL Phosphorus (2.5-4.6) mg/dL Magnesium (1.7-2.8) mg/dL B-Natriuretic Peptide (5-100) pg/mL Assessment/Plan - Problem List (1) Generalized weakness Impression: The patient presents with generalized weakness. Patient does not appear to have any kind of infection as his UA is negative and chest x-ray is negative. No other signs or symptoms of infection at this time. Most likely cause of the patient's generalized weakness appears to be the fact that he is dehydrated. The patient is dehydrated secondary to having nausea vomiting and poor oral intake. This is likely in conjunction with the fact that he is on Lasix at home and appears to be very dry on examination and likely has not been needing the Lasix which is been drying him out further over the last couple of days. The patient's generalized weakness is also secondary to his severe electrolyte deficiencies including hypokalemia, hypocalcemia and hypomagnesemia. The patient does not have any focal neurologic deficits to suggest a stroke. He is improving. Will reassess this afternoon to see if he can go home. Physical Therapy feels he may not be able to leave today. She will also reasses and we will make decision then to either admit or discharge. Today she describes : Pt. amb. x 5 ft. fwd/5ft. back, twice using FWW, cga on oxygen; pt. c/o fatigue and "shaking" knees after 20 total ft. of walking; when asked about his normal baseline function pt. reports he feels weak w/standing for (walking) functional activity compared to his usual status. Plan: Continue IV fluids and electrolyte replacement Monitor patient closely (2) Hypokalemia Conclusion/Plan: The patient has significant hypokalemia on presentation with a potassium of 2.6. This morning better but still low at 3.1. This is likely secondary to the patient vomiting at home as well as the fact that he is on Lasix. Plan: Patient's potassium will continue to be replaced with IV and p.o. potassium We will continue to monitor the patient's potassium Patient will be given IV fluids (3) RUSLAN (acute kidney injury) Conclusion/Plan: Patient's creatinine is elevated at 1.5 from his baseline creatinine of 0.9 from just 1 month earlier. The patient appears to have prerenal azotemia likely secondary to dehydration from nausea vomiting and Lasix use. He is responding and creat 1.2 this morning. Plan: Patient will continue to be given IV fluids We will avoid any nephrotoxic agents We will continue to monitor the patient's creatinine. (4) Hypomagnesemia Conclusion/Plan: The patient does present with hypomagnesemia. The patient's magnesium is severely decreased at 0.4. This is likely secondary to the patient's vomiting and dehydration. The patient also has been on Lasix which could also be depleting his magnesium supply. Plan: Has been given IV and p.o. magnesium replacement We will continue to monitor patient's magnesium with next check this afternoon. (5) Hypocalcemia Conclusion/Plan: The patient has severe hypocalcemia on presentation his calcium is 6.3 and ionized calcium is 0.78. This is all likely secondary to dehydration and poor nutrition. The low calcium is likely contributing to the patient's symptoms of generalized weakness Plan: Patient will be given calcium replacement IV and p.o. We will continue to monitor the patient's calcium Check this afternoon. (6) Congestive heart failure Conclusion/Plan: Patient has history of systolic heart failure. The patient appears to be stable from CHF standpoint. Patient is on optimal medication with Cozaar and Toprol-XL. Patient currently appears appears to be hypovolemic and therefore we held his Lasix and gave him IV fluids. So far no changes on exam indicating fluid overload. Plan: We will continue patient's optimal treatment with Toprol-XL and Cozaar however we are continuing to hold the patient's Lasix given his dehydration. The patient will be monitored closely for development of pulmonary congestion or CHF exacerbation in the setting of getting IV fluids. Qualifiers: Congestive heart failure type: systolic Congestive heart failure chronicity : chronic Qualified Code(s): I50.22 - Chronic systolic (congestive) heart failure (7) Diabetes Conclusion/Plan: Patient has history of diabetes. On presentation the patient's blood sugar is slightly elevated at 189. The patient's hemoglobin A1c is 10.5. Patient is on Januvia and glipizide at home. The patient being hyperglycemic at home persistently could also contribute to his dehydration. Selected Entries 04/04/17 04/05/17 04/05/17 22:16 08:00 09:23 Result (mg/dL) 216 79 114 04/05/17 11:56 Result (mg/dL) 250 Plan: Patient is on sliding scale insulin while he is hospitalized. Will add a fixed dose to his meals since too high here. Patient is on a diabetic diet We will monitor the patient's glucose before meals at bedtime Qualifiers: Diabetes mellitus type: type 2 Diabetes mellitus complication status: without complication Diabetes mellitus mcfp insulin use: without terminal manager use Qualified Code(s): E11.9 - Type 2 diabetes mellitus without complications
[2017-04-05 16:52] LABS: CALCIUM 7.1 mg/dL (8.5-10.3); POTASSIUM 3.8 mmol/L (3.5-5.0)
[2017-04-05] MEDS: ATORVASTATIN 40 MG TABLET PO SCH (21:07)
[2017-04-05] MEDS: traZODone 50 MG TABLET PO SCH (21:08)
[2017-04-06] MEDS: NS W/20 MEQ KCL 1,000 ML IV SCH (03:13)
[2017-04-06] MEDS: SODIUM CHLORIDE FLUSH 0.9% 10 ML SYRINGE IVP SCH (04:38)
[2017-04-06 05:43] LABS: BASOPHILS # (AUTO) 0.1 10^3/uL (0.0-0.1); BASOPHILS % (AUTO) 1.4 %; EOSINOPHILS # (AUTO) 0.1 10^3/uL (0.0-0.7); EOSINOPHILS % (AUTO) 1.5 %; HCT - HEMATOCRIT 36.2 % (42.0-52.0); HGB - HEMOGLOBIN 11.6 g/dL (14.0-18.0); LYMPHOCYTES % (AUTO) 19.7 %; MEAN CORPUSCULAR HEMOGLOBIN 23.3 pg (27.0-31.0); MEAN CORPUSCULAR HGB CONC 31.9 g/dL (32.0-36.0); MEAN CORPUSCULAR VOLUME 73.2 fL (80.0-94.0); MEAN PLATELET VOLUME 8.2 fL (7.4-11.4); MONOCYTES # (AUTO) 0.8 10^3/uL (0.0-1.0); MONOCYTES % (AUTO) 8.1 %; NEUTROPHILS % (AUTO) 69.3 %; NUCLEATED RED BLOOD CELLS AUTO 0.1 /100WBC; RED BLOOD COUNT 4.95 10^6/uL (4.70-6.10); RED CELL DISTRIBUTION WIDTH 22.4 % (12.0-15.0); UNCORRECTED WHITE BLOOD COUNT 10.1 x10^3/uL; WHITE BLOOD COUNT 10.1 x10^3/uL (4.8-10.8)
[2017-04-06 05:50] LABS: ALBUMIN/GLOBULIN RATIO 1.1 (1.0-2.2); BILIRUBIN,TOTAL 0.4 mg/dL (0.2-1.0); BUN - BLOOD UREA NITROGEN 19 mg/dL (6-20); CALCIUM 6.9 mg/dL (8.5-10.3); CARBON DIOXIDE - CO2 24 mmol/L (21-32); CHLORIDE 104 mmol/L (101-111); CREATININE 0.9 mg/dL (0.6-1.2); GFR - MDRD 83 (>89); GLUCOSE 150 mg/dL (70-100); MAGNESIUM 1.2 mg/dL (1.7-2.8); PHOSPHORUS 2.6 mg/dL (2.5-4.6); POTASSIUM 3.5 mmol/L (3.5-5.0); SODIUM 138 mmol/L (135-145); TOTAL PROTEIN 6.2 g/dL (6.7-8.2)
[2017-04-06 05:54] LABS: VBG PH 7.4 (7.31-7.41)
[2017-04-06 05:55] LABS: CALCIUM, IONIZED 0.91 mmol/L (1.15-1.33)
[2017-04-06 06:29] LABS: PLATELET ESTIMATE, MANUAL NORMAL (130-450,000) (NORMAL)
[2017-04-06] MEDS: BUDESONIDE 0.5 MG/2 ML NEB INH SCH (07:50)
[2017-04-06] MEDS: IPRATROPIUM/ALBUTEROL 3 ML NEB INH PRN (07:50)
[2017-04-06] MEDS: METOPROLOL SUCCINATE 50 MG TABLET PO SCH (09:01)
[2017-04-06] MEDS: FAMOTIDINE 20 MG TABLET PO SCH (09:01)
[2017-04-06] MEDS: AMIODARONE 200 MG TABLET PO SCH (09:01)
[2017-04-06] MEDS: MAGNESIUM OXIDE 400 MG TABLET PO SCH (09:01)
[2017-04-06] MEDS: INSULIN ASPART 300 UNIT/3 ML PEN SUBQ SCH ×2 (09:01→11:55)
[2017-04-06] MEDS: MULTIVITAMIN TABLET PO SCH (09:01)
[2017-04-06] MEDS: POTASSIUM CHLORIDE 20 MEQ TABLET PO SCH (09:01)
[2017-04-06] MEDS: POLYETHYLENE GLYCOL 3350 17 GM PACKET PO SCH (09:02)
[2017-04-06] MEDS: TAMSULOSIN 0.4 MG CAPSULE PO SCH (09:02)
[2017-04-06] MEDS: NICOTINE 21 MG PATCH TOP SCH (09:02)
--- NOTE | 2017-04-06 11:38 | Discharge Plan ---
Discharge Plan Disposition: Home, Self Care Condition: Fair Prescriptions: Magnesium Oxide [Mag-Oxide] 200 mg PO DAILY #30 tablet Potassium Chloride [Klor-Con Sprinkle] 16 meq PO DAILY #60 capsule.er Diet: Diabetic Activity Restrictions: Additional Comments (no smoking please!) Shower Restrictions: No Driving Restrictions: No Assistance Devices: Walker (11/12 when up even in home) Additional Instructions or Follow Up instructions: You were admitted to the hospital because you were so weak you were starting to have falls. When we evaluated you, we found you to have severe dehydration and severe electrolyte imbalance. Your calcium, potassium, and magnesium were all very low as well as you being very dehydrated. You may have gotten a little bit dehydrated with the Lasix. You will have to watch your glucose at home and check it in the morning before you eat. Write those levels down and take the paper with the recordings to your primary care provider, Georgie Monet or Anselmo Gray, so that either one of them can adjust your diabetic medications on the basis of your glucose. We would also like you to temporarily go on potassium as well as magnesium. We have reduced your Lasix from twice a day to once a day. Most importantly, your primary care provider needs to see you in the next week and check your blood work to make sure that all of your electrolytes are in balance. She will need to check something called a BMP with calcium, magnesium , and phosphorus. Please also have her check your lactic acid. While you were here, you were very weak. Physical therapy was able to work with you but you will need some strengthening exercises. You were to use a walker all the time at home, and when out of the house. The therapist here would like you to get home health physical therapy until you are strong enough to leave the house on her own. As such that has been ordered. Follow-Up Care: Home Health - PT No Smoking: If you smoke, Please STOP! Call for help. Follow-up with: Anselmo Gray PA-C [Primary Care Provider] -
[2017-04-06 12:32] VITALS: BP 141/58
--- NOTE | 2017-04-09 11:05 | DISCHARGE SUMMARY ---
DATE OF ADMISSION: 04/05/2017 DATE OF DISCHARGE: 04/06/2017 DISCHARGE DIAGNOSES 1. Generalized weakness, anion gap acidosis. 2. Hypokalemia. 3. Acute kidney injury. 4. Hypomagnesemia. 5. Hypocalcemia. 6. Chronic systolic congestive heart failure. 7. Uncontrolled diabetes mellitus without complication. 8. Trachesotomy tube status DISCHARGE MEDICATIONS 1. ProAir inhaler 2 puffs q.i.d. p.r.n. 2. Pacerone 200 mg daily. 3. Lipitor 80 mg daily. 4. Budesonide with formoterol 2 puffs b.i.d. 5. Glipizide 20 mg p.o. b.i.d. 6. DuoNeb 3 mL b.i.d. 7. Losartan 50 mg daily. 8. Magnesium oxide 200 mg daily. 9. Toprol-XL 100 mg p.o. b.i.d. 10. Prilosec 20 mg p.o. daily. 11. Potassium 20 mEq daily. 12. Januvia 100 mg daily. 13. Flomax 0.4 mg daily. 14. Trazodone 50 mg q.p.m. 15. Coumadin 10 mg Sunday, Sunday, Sunday and 7.5 mg all the other days of the week. MEDICATIONS THAT WERE CHANGED: Lasix from 40 mg b.i.d. to 40 mg p.o. daily. HOSPITAL COURSE: The patient came to the hospital because he was getting so weak and so lethargic that he was starting to have falls. When we evaluated him we found him to have severe dehydration and severe electrolyte imbalance. His calcium, potassium, magnesium were all very low, as well as an elevated BUN and creatinine. We think that he had a problem with his Lasix and over diuresis. It is unclear if the patient was taking metformin or not. In any case, the patient was hydrated, and all his electrolytes were supplemented IV until he was able to take p.o. nicely. He was initially placed in observation, but the next day, he was so weak and tired that we changed him to inpatient status and kept him another night. He was seen by Physical Therapy because of the weakness. He was able to work with Physical Therapy enough to walk with a walker, and passed the step challenge here in the hospital. Because of his age and deconditioning, it is recommended he go home with home health physical therapy. PHYSICAL EXAMINATION: On the day of discharge, temperature was 36.7. Pulse 70, blood pressure 141/58, respirations 20, 93% on room air. He is a tall, alert, disheveled gentleman, unshaven. Alert and oriented x 3 and quite talkative. He has a tracheostomy that he plugs up to speak. He has an occasional phlegmy cough with occasional rhonchi, but no wheezing, no increased respiratory effort. He has an irregularly irregular pulse. Systolic murmur, an obese abdomen , and walks with a slightly bowlegged gait when he get up in the room. He needs a walker to do so. No leg edema. I have written prescriptions for tacheostomy tubes and supplies for the immediate discharge. He has been using the same tubes for 2 years. I will then ask his PCP for re prescribe for refills. Because of weakness that remains and he lives alone, I will be asking for Home Health with PT for increasing his endurance. He can usually leave the house of his own volition but with his illness he will not be able to do so for a few weeks. [facility] [place]. has been since 2000. Children do not live in the area. Greater than 30 minutes was spent coordinating discharge. JOB #: [id number] EXT JOB #:[id number] HUSSEIN
== END 2017-04-06 14:23 | disposition home or self-care (01) | DRG 683 ==
LOC: EDUNIT# → ED 16:28 → OBS 20:33 → MS2 04-05 18:57 → OBSVTOIN 04-05 20:32 → OBS 04-05 20:33 → MS2 04-05 20:53
PROVIDERS: ADMIT Internal Medicine; ATTEND Specialist
DX: N17.9 Acute kidney failure, unspecified (principal); E87.2 Acidosis; N28.9 Disorder of kidney and ureter, unspecified; I50.22 Chronic systolic (congestive) heart failure; E87.6 Hypokalemia; E11.9 Type 2 diabetes mellitus without complications; R53.1 Weakness; E83.42 Hypomagnesemia; E83.51 Hypocalcemia; I50.9 Heart failure, unspecified; E78.00 Pure hypercholesterolemia, unspecified; I11.0 Hypertensive heart disease with heart failure; G47.30 Sleep apnea, unspecified; E11.65 Type 2 diabetes mellitus with hyperglycemia; E86.0 Dehydration; E78.5 Hyperlipidemia, unspecified; G47.33 Obstructive sleep apnea (adult) (pediatric); F17.210 Nicotine dependence, cigarettes, uncomplicated; R11.2 Nausea with vomiting, unspecified; F17.200 Nicotine dependence, unspecified, uncomplicated; F32.9 Major depressive disorder, single episode, unspecified; J44.9 Chronic obstructive pulmonary disease, unspecified; Z99.81 Dependence on supplemental oxygen; Z93.0 Tracheostomy status; I25.10 Atherosclerotic heart disease of native coronary artery without angina pectoris; K21.9 Gastro-esophageal reflux disease without esophagitis; M19.90 Unspecified osteoarthritis, unspecified site; Z79.84 Long term (current) use of oral hypoglycemic drugs; Z79.51 Long term (current) use of inhaled steroids; Z79.01 Long term (current) use of anticoagulants; Z79.899 Other long term (current) drug therapy; Z95.1 Presence of aortocoronary bypass graft; I25.2 Old myocardial infarction; Z85.21 Personal history of malignant neoplasm of larynx
CPT/HCPCS: 36415; 71010; 80048; 80053; 81001; 81003; 82310; 82330; 83036; 83690; 83735; 83880; 84100; 84132; 84484; 85025; 85610; 87086; 93005; 94640; 94644; 94645; 96365; 96366; 96367; 99284; 99406

== ENCOUNTER 2017-04-06 08:00 | Outpatient (CLI) | payer MEDICARE, OTHER | END 2017-04-06 08:01 | disposition home or self-care (01) | LOC: LAB.N 08:00 | PROVIDERS: ATTEND Nurse Practitioner Gerontology | DX: I48.91 Unspecified atrial fibrillation (principal) | CPT/HCPCS: 85610 ==

== ENCOUNTER 2017-04-09 15:01 | Outpatient (CLI) | payer MEDICARE, OTHER | END 2017-04-09 15:02 | disposition home or self-care (01) | LOC: LAB.N 15:01 | PROVIDERS: ATTEND Nurse Practitioner Gerontology | DX: I48.91 Unspecified atrial fibrillation (principal) | CPT/HCPCS: 85610 ==

== ENCOUNTER 2017-04-13 08:00 | Outpatient (CLI) | payer MEDICARE, OTHER ==
[2017-04-13 19:04] LABS: BASOPHILS # (AUTO) 0.1 10^3/uL (0.0-0.1); BASOPHILS % (AUTO) 1.4 %; EOSINOPHILS # (AUTO) 0.2 10^3/uL (0.0-0.7); EOSINOPHILS % (AUTO) 2.5 %; HCT - HEMATOCRIT 38.4 % (42.0-52.0); LYMPHOCYTES # (AUTO) 1.1 10^3/uL (1.5-3.5); LYMPHOCYTES % (AUTO) 17.5 %; MEAN CORPUSCULAR HEMOGLOBIN 23.3 pg (27.0-31.0); MEAN CORPUSCULAR HGB CONC 31.2 g/dL (32.0-36.0); MEAN CORPUSCULAR VOLUME 74.7 fL (80.0-94.0); MONOCYTES # (AUTO) 0.5 10^3/uL (0.0-1.0); MONOCYTES % (AUTO) 8.4 %; NEUTROPHILS # (AUTO) 4.4 10^3/uL (1.5-6.6); NEUTROPHILS % (AUTO) 70.2 %; RED BLOOD COUNT 5.13 10^6/uL (4.70-6.10); RED CELL DISTRIBUTION WIDTH 23.9 % (12.0-15.0); UNCORRECTED WHITE BLOOD COUNT 6.3 x10^3/uL; WHITE BLOOD COUNT 6.3 x10^3/uL (4.8-10.8)
[2017-04-13 19:28] LABS: CALCIUM 9.2 mg/dL (8.5-10.3); CREATININE 0.9 mg/dL (0.6-1.2); POTASSIUM 4.7 mmol/L (3.5-5.0)
[2017-04-13 19:36] LABS: PLATELET ESTIMATE, MANUAL NORMAL (130-450,000) (NORMAL); PLATELET MORPHOLOGY NORMAL APPEARANCE (NORMAL)
[2017-04-13 19:37] LABS: WBC MORPHOLOGY (MULTIPLE) NORMAL APPEARANCE (NORMAL)
== END 2017-04-13 08:01 | disposition home or self-care (01) ==
LOC: LAB.N 08:00
PROVIDERS: ATTEND Nurse Practitioner Gerontology
DX: E87.6 Hypokalemia (principal); D72.829 Elevated white blood cell count, unspecified
CPT/HCPCS: 36415; 80048; 85025

== ENCOUNTER 2017-04-16 13:33 | Outpatient (CLI) | payer MEDICARE, OTHER | END 2017-04-16 13:34 | LOC: LAB.N 13:33 | PROVIDERS: ATTEND Nurse Practitioner Gerontology | DX: I48.91 Unspecified atrial fibrillation (principal) | CPT/HCPCS: 85610 ==

== ENCOUNTER 2017-04-23 08:00 | Outpatient (CLI) | payer MEDICARE, OTHER | END 2017-04-23 08:01 | disposition home or self-care (01) | LOC: LAB.N 08:00 | PROVIDERS: ATTEND Nurse Practitioner Gerontology | DX: I48.91 Unspecified atrial fibrillation (principal) | CPT/HCPCS: 85610 ==

== ENCOUNTER 2017-04-26 14:18 | Outpatient (CLI) | payer MEDICARE, OTHER ==
--- NOTE | 2017-04-27 09:30 | CT Report ---
CHEST CT WITHOUT CONTRAST: 04/26/2017 COMPARISON: Chest CT 10/16/2012. INDICATION: Left lung atelectasis. TECHNIQUE: Noncontrast axial imaging of the chest with coronal and sagittal reformats. In accordance with CT protocol optimization, one or more of the following dose reduction techniques were utilized for this exam: automated exposure control, adjustment of mA and/or KV based on patient size, or use of iterative reconstructive technique. FINDINGS: Sternotomy, tracheostomy, and cardiac pacemaker are noted. Left lower lobe atelectasis and effusion are stable findings. No pulmonary nodules or masses in other regards. No pneumothorax. Limited upper abdomen is grossly unremarkable. No bone lesions. IMPRESSION: STABLE LEFT LOWER LOBE ATELECTASIS AND PLEURAL EFFUSION. JOB #: [id number] EXT JOB #: [id number] HUSSEIN
== END 2017-04-26 14:19 | disposition home or self-care (01) ==
LOC: DI 14:18
PROVIDERS: ATTEND Internal Medicine Critical Care Medicine
DX: J98.11 Atelectasis (principal); J90 Pleural effusion, not elsewhere classified
CPT/HCPCS: 71250

== ENCOUNTER 2017-05-07 08:00 | Outpatient (CLI) | payer MEDICARE, OTHER | END 2017-05-07 08:01 | disposition home or self-care (01) | LOC: LAB.N 08:00 | PROVIDERS: ATTEND Nurse Practitioner Gerontology | DX: I48.91 Unspecified atrial fibrillation (principal) | CPT/HCPCS: 85610 ==

== ENCOUNTER 2017-05-15 08:00 | Outpatient (CLI) | payer MEDICARE, OTHER | END 2017-05-15 08:01 | disposition home or self-care (01) | LOC: LAB.N 08:00 | PROVIDERS: ATTEND Nurse Practitioner Gerontology | DX: I48.91 Unspecified atrial fibrillation (principal) | CPT/HCPCS: 85610 ==

== ENCOUNTER 2017-05-22 08:00 | Outpatient (CLI) | payer MEDICARE, OTHER | END 2017-05-22 08:01 | disposition home or self-care (01) | LOC: LAB.N 08:00 | PROVIDERS: ATTEND Nurse Practitioner Gerontology | DX: I48.91 Unspecified atrial fibrillation (principal) | CPT/HCPCS: 85610 ==

== ENCOUNTER 2017-06-05 08:00 | Outpatient (CLI) | payer MEDICARE, OTHER | END 2017-06-05 08:01 | disposition home or self-care (01) | LOC: LAB.N 08:00 | PROVIDERS: ATTEND Nurse Practitioner Gerontology | DX: I48.91 Unspecified atrial fibrillation (principal) | CPT/HCPCS: 85610 ==

== ENCOUNTER 2017-06-19 14:19 | Outpatient (CLI) | payer MEDICARE, OTHER | END 2017-06-19 14:20 | disposition home or self-care (01) | LOC: LAB.N 14:19 | PROVIDERS: ATTEND Nurse Practitioner Gerontology | DX: I48.91 Unspecified atrial fibrillation (principal) | CPT/HCPCS: 85610 ==

== ENCOUNTER 2017-06-27 14:28 | Outpatient (CLI) | payer MEDICARE, OTHER | END 2017-06-27 14:29 | LOC: LAB.N 14:28 | PROVIDERS: ATTEND Nurse Practitioner Gerontology | DX: I48.91 Unspecified atrial fibrillation (principal) | CPT/HCPCS: 85610 ==

== ENCOUNTER 2017-07-04 14:26 | Outpatient (CLI) | payer MEDICARE, OTHER | END 2017-07-04 14:27 | disposition home or self-care (01) | LOC: LAB.N 14:26 | PROVIDERS: ATTEND Nurse Practitioner Gerontology | DX: I48.91 Unspecified atrial fibrillation (principal) | CPT/HCPCS: 85610 ==

== ENCOUNTER 2017-07-11 14:28 | Outpatient (CLI) | payer MEDICARE, OTHER | END 2017-07-11 14:29 | disposition home or self-care (01) | LOC: LAB.N 14:28 | PROVIDERS: ATTEND Nurse Practitioner Gerontology | DX: I48.91 Unspecified atrial fibrillation (principal) | CPT/HCPCS: 85610 ==

== ENCOUNTER 2017-07-18 08:00 | Outpatient (CLI) | payer MEDICARE, OTHER | END 2017-07-18 08:01 | disposition home or self-care (01) | LOC: LAB.N 08:00 | PROVIDERS: ATTEND Nurse Practitioner Gerontology | DX: I48.91 Unspecified atrial fibrillation (principal) | CPT/HCPCS: 85610 ==

== ENCOUNTER 2017-07-25 08:00 | Outpatient (CLI) | payer MEDICARE, OTHER | END 2017-07-25 08:01 | disposition home or self-care (01) | LOC: LAB.N 08:00 | PROVIDERS: ATTEND Nurse Practitioner Gerontology | DX: I48.91 Unspecified atrial fibrillation (principal) | CPT/HCPCS: 85610 ==

== ENCOUNTER 2017-08-08 14:27 | Outpatient (CLI) | payer MEDICARE, OTHER ==
[2017-08-08 19:09] LABS: BASOPHILS # (AUTO) 0.1 10^3/uL (0.0-0.1); BASOPHILS % (AUTO) 1.4 %; EOSINOPHILS # (AUTO) 0.2 10^3/uL (0.0-0.7); HGB - HEMOGLOBIN 11.9 g/dL (14.0-18.0); LYMPHOCYTES # (AUTO) 1.2 10^3/uL (1.5-3.5); LYMPHOCYTES % (AUTO) 15.6 %; MEAN CORPUSCULAR HEMOGLOBIN 24.7 pg (27.0-31.0); MEAN CORPUSCULAR HGB CONC 31.7 g/dL (32.0-36.0); MEAN CORPUSCULAR VOLUME 77.9 fL (80.0-94.0); MEAN PLATELET VOLUME 7.5 fL (7.4-11.4); MONOCYTES # (AUTO) 0.4 10^3/uL (0.0-1.0); MONOCYTES % (AUTO) 5.6 %; NEUTROPHILS # (AUTO) 5.9 10^3/uL (1.5-6.6); NEUTROPHILS % (AUTO) 74.4 %; PLT - PLATELET COUNT 347 10^3/uL (130-450); RED BLOOD COUNT 4.81 10^6/uL (4.70-6.10)
[2017-08-08 19:22] LABS: PSA FREE 0.13 ng/mL (0.16-2.81)
[2017-08-08 19:23] LABS: PSA TOTAL 0.29 ng/mL (0.000-2.000)
[2017-08-08 19:28] LABS: HB2 TOTAL 12.7 g/dL; HEMOGLOBIN A1C 1.12 g/dL; HEMOGLOBIN A1C % 10.2 % (4.6-6.2)
[2017-08-08 19:34] LABS: ALBUMIN 3.6 g/dL (3.2-5.5); ALBUMIN/GLOBULIN RATIO 1.1 (1.0-2.2); ALKALINE PHOSPHATASE 90 IU/L (42-121); ALT ALANINE AMINOTRANSFERASE 13 IU/L (10-60); AST ASPARTATE AMINOTRANSFERASE 18 IU/L (10-42); BILIRUBIN,TOTAL 0.3 mg/dL (0.2-1.0); BUN - BLOOD UREA NITROGEN 11 mg/dL (6-20); CALCIUM 7.6 mg/dL (8.5-10.3); CARBON DIOXIDE - CO2 25 mmol/L (21-32); CHLORIDE 98 mmol/L (101-111); CHOLESTEROL 83 mg/dL; CREATININE 0.9 mg/dL (0.6-1.2); GFR - MDRD 83 (>89); GLUCOSE 130 mg/dL (70-100); HDL CHOLESTEROL 28 mg/dL; LDL CHOLESTEROL,CALCULATED 29 mg/dL; SODIUM 136 mmol/L (135-145); VLDL CHOLESTEROL 26 mg/dL
== END 2017-08-08 14:28 | disposition home or self-care (01) ==
LOC: LAB.N 14:27
PROVIDERS: ATTEND Family Medicine
DX: E87.6 Hypokalemia (principal); E11.65 Type 2 diabetes mellitus with hyperglycemia; N40.0 Benign prostatic hyperplasia without lower urinary tract symptoms; E78.5 Hyperlipidemia, unspecified; I48.91 Unspecified atrial fibrillation
CPT/HCPCS: 36415; 80053; 80061; 83036; 83721; 84154; 84443; 85025; 85610

== ENCOUNTER 2017-08-13 08:00 | Outpatient (CLI) | payer MEDICARE, OTHER | END 2017-08-13 08:01 | LOC: LAB.N 08:00 | PROVIDERS: ATTEND Nurse Practitioner Gerontology | DX: I48.91 Unspecified atrial fibrillation (principal) | CPT/HCPCS: 85610 ==

== ENCOUNTER 2017-08-17 14:22 | Outpatient (CLI) | payer MEDICARE, OTHER | END 2017-08-17 14:23 | disposition home or self-care (01) | LOC: LAB.N 14:22 | PROVIDERS: ATTEND Nurse Practitioner Gerontology | DX: I48.91 Unspecified atrial fibrillation (principal) | CPT/HCPCS: 85610 ==

== ENCOUNTER 2017-08-22 14:29 | Outpatient (CLI) | payer MEDICARE, OTHER | END 2017-08-22 14:30 | disposition home or self-care (01) | LOC: LAB.N 14:29 | PROVIDERS: ATTEND Nurse Practitioner Gerontology | DX: I48.91 Unspecified atrial fibrillation (principal) | CPT/HCPCS: 85610 ==

== ENCOUNTER 2017-08-29 15:00 | Outpatient (CLI) | payer MEDICARE, OTHER | END 2017-08-29 15:01 | disposition home or self-care (01) | LOC: LAB.N 15:00 | PROVIDERS: ATTEND Nurse Practitioner Gerontology | DX: I48.91 Unspecified atrial fibrillation (principal) | CPT/HCPCS: 85610 ==

== ENCOUNTER 2017-09-12 14:56 | Outpatient (CLI) | payer MEDICARE, OTHER | END 2017-09-12 14:57 | disposition home or self-care (01) | LOC: LAB.N 14:56 | PROVIDERS: ATTEND Nurse Practitioner Gerontology | DX: I48.91 Unspecified atrial fibrillation (principal) | CPT/HCPCS: 85610 ==

== ENCOUNTER 2017-09-26 14:40 | Outpatient (CLI) | payer MEDICARE, OTHER | END 2017-09-26 14:41 | LOC: LAB.N 14:40 | PROVIDERS: ATTEND Nurse Practitioner Gerontology | DX: I48.91 Unspecified atrial fibrillation (principal) | CPT/HCPCS: 85610 ==

== ENCOUNTER 2017-10-03 14:36 | Outpatient (CLI) | payer MEDICARE, OTHER | END 2017-10-03 14:37 | LOC: LAB.N 14:36 | PROVIDERS: ATTEND Nurse Practitioner Gerontology | DX: I48.91 Unspecified atrial fibrillation (principal) | CPT/HCPCS: 85610 ==

== ENCOUNTER 2017-10-17 14:45 | Outpatient (CLI) | payer MEDICARE, OTHER | END 2017-10-17 14:46 | disposition home or self-care (01) | LOC: LAB.N 14:45 | PROVIDERS: ATTEND Nurse Practitioner Gerontology | DX: I48.91 Unspecified atrial fibrillation (principal) | CPT/HCPCS: 85610 ==

== ENCOUNTER 2017-10-22 13:37 | Outpatient (CLI) | payer MEDICARE, OTHER | END 2017-10-22 13:38 | disposition home or self-care (01) | LOC: LAB.N 13:37 | PROVIDERS: ATTEND Nurse Practitioner Gerontology | DX: I48.91 Unspecified atrial fibrillation (principal) | CPT/HCPCS: 85610 ==

== ENCOUNTER 2017-10-26 08:00 | Outpatient (CLI) | payer MEDICARE, OTHER | END 2017-10-26 08:01 | LOC: LAB.N 08:00 | PROVIDERS: ATTEND Nurse Practitioner Gerontology | DX: I48.91 Unspecified atrial fibrillation (principal) | CPT/HCPCS: 85610 ==

== ENCOUNTER 2017-11-14 14:31 | Outpatient (CLI) | payer MEDICARE, OTHER | END 2017-11-14 14:32 | disposition home or self-care (01) | LOC: LAB.N 14:31 | PROVIDERS: ATTEND Nurse Practitioner Gerontology | DX: I48.91 Unspecified atrial fibrillation (principal) | CPT/HCPCS: 85610 ==

== ENCOUNTER 2017-11-19 13:50 | Outpatient (CLI) | payer MEDICARE, OTHER | END 2017-11-19 13:51 | disposition home or self-care (01) | LOC: LAB.N 13:50 | PROVIDERS: ATTEND Nurse Practitioner Gerontology | DX: I48.91 Unspecified atrial fibrillation (principal) | CPT/HCPCS: 85610 ==

== ENCOUNTER 2017-11-26 14:00 | Outpatient (CLI) | payer MEDICARE, OTHER ==
[2017-11-26 18:41] LABS: BASOPHILS # (AUTO) 0.1 10^3/uL (0.0-0.1); BASOPHILS % (AUTO) 1.6 %; EOSINOPHILS # (AUTO) 0.2 10^3/uL (0.0-0.7); EOSINOPHILS % (AUTO) 3.5 %; HGB - HEMOGLOBIN 12.6 g/dL (14.0-18.0); LYMPHOCYTES # (AUTO) 1.3 10^3/uL (1.5-3.5); LYMPHOCYTES % (AUTO) 18.7 %; MEAN CORPUSCULAR HEMOGLOBIN 27.1 pg (27.0-31.0); MEAN CORPUSCULAR HGB CONC 31.8 g/dL (32.0-36.0); MEAN CORPUSCULAR VOLUME 85.3 fL (80.0-94.0); MEAN PLATELET VOLUME 7.4 fL (7.4-11.4); MEAN RETIC VALUE 106.6; MONOCYTES # (AUTO) 0.4 10^3/uL (0.0-1.0); MONOCYTES % (AUTO) 5.7 %; NEUTROPHILS # (AUTO) 4.8 10^3/uL (1.5-6.6); NEUTROPHILS % (AUTO) 70.5 %; PLT - PLATELET COUNT 362 10^3/uL (130-450); RED BLOOD COUNT 4.66 10^6/uL (4.70-6.10); RED CELL DISTRIBUTION WIDTH 19.8 % (12.0-15.0); WHITE BLOOD COUNT 6.8 x10^3/uL (4.8-10.8)
[2017-11-26 19:07] LABS: CALCIUM 8.4 mg/dL (8.5-10.3); CREATININE 1.2 mg/dL (0.6-1.2)
[2017-11-26 19:18] LABS: HEMOGLOBIN A1C 1.06 g/dL; HEMOGLOBIN A1C % 9.1 % (4.6-6.2)
[2017-11-26 19:19] LABS: FERRITIN 18.9 ng/mL (23.9-336.2)
[2017-11-26 19:23] LABS: FOLATE 5.21 ng/mL (5.90 - >24.8)
== END 2017-11-26 14:01 ==
LOC: LAB.N 14:00
PROVIDERS: ATTEND Family Medicine
DX: D50.9 Iron deficiency anemia, unspecified (principal); I48.91 Unspecified atrial fibrillation; E11.8 Type 2 diabetes mellitus with unspecified complications
CPT/HCPCS: 36415; 80048; 82607; 82728; 82746; 83036; 83540; 84466; 85025; 85044; 85610

== ENCOUNTER 2017-12-03 15:41 | Outpatient (CLI) | payer MEDICARE, OTHER | END 2017-12-03 15:42 | disposition home or self-care (01) | LOC: LAB.N 15:41 | PROVIDERS: ATTEND Nurse Practitioner Gerontology | DX: I48.91 Unspecified atrial fibrillation (principal) | CPT/HCPCS: 85610 ==

== ENCOUNTER 2017-12-10 08:00 | Outpatient (CLI) | payer MEDICARE, OTHER | END 2017-12-10 08:01 | disposition home or self-care (01) | LOC: LAB.N 08:00 | PROVIDERS: ATTEND Nurse Practitioner Gerontology | DX: I48.91 Unspecified atrial fibrillation (principal) | CPT/HCPCS: 85610 ==

== ENCOUNTER 2017-12-14 13:42 | Outpatient (CLI) | payer MEDICARE, OTHER | END 2017-12-14 13:43 | disposition home or self-care (01) | LOC: LAB.N 13:42 | PROVIDERS: ATTEND Nurse Practitioner Gerontology | DX: I48.91 Unspecified atrial fibrillation (principal) | CPT/HCPCS: 85610 ==

== ENCOUNTER 2017-12-17 13:23 | Outpatient (CLI) | payer MEDICARE, OTHER | END 2017-12-17 13:24 | disposition home or self-care (01) | LOC: LAB.N 13:23 | PROVIDERS: ATTEND Nurse Practitioner Gerontology | DX: I48.91 Unspecified atrial fibrillation (principal) | CPT/HCPCS: 85610 ==

== ENCOUNTER 2017-12-24 15:05 | Outpatient (CLI) | payer MEDICARE, OTHER | END 2017-12-24 15:06 | disposition home or self-care (01) | LOC: LAB.N 15:05 | PROVIDERS: ATTEND Nurse Practitioner Gerontology | DX: I48.91 Unspecified atrial fibrillation (principal) | CPT/HCPCS: 85610 ==

== ENCOUNTER 2017-12-28 11:04 | Outpatient (CLI) | payer MEDICARE, OTHER | END 2017-12-28 11:05 | disposition home or self-care (01) | LOC: LAB.N 11:04 | PROVIDERS: ATTEND Nurse Practitioner Gerontology | DX: I48.91 Unspecified atrial fibrillation (principal) | CPT/HCPCS: 85610 ==

== ENCOUNTER 2017-12-29 12:23 | Outpatient (CLI) | payer MEDICARE, OTHER | END 2017-12-29 12:24 | disposition home or self-care (01) | LOC: LAB 12:23 | PROVIDERS: ATTEND Nurse Practitioner Gerontology | DX: I48.91 Unspecified atrial fibrillation (principal) | CPT/HCPCS: 36415; 85610 ==

== ENCOUNTER 2017-12-31 08:00 | Outpatient (CLI) | payer MEDICARE, OTHER | END 2017-12-31 08:01 | LOC: LAB.N 08:00 | PROVIDERS: ATTEND Nurse Practitioner Gerontology | DX: I48.91 Unspecified atrial fibrillation (principal) | CPT/HCPCS: 85610 ==

== ENCOUNTER 2018-01-03 13:27 | Outpatient (CLI) | payer MEDICARE, OTHER | END 2018-01-03 13:28 | LOC: LAB.N 13:27 | PROVIDERS: ATTEND Nurse Practitioner Gerontology | DX: I48.91 Unspecified atrial fibrillation (principal) | CPT/HCPCS: 85610 ==

== ENCOUNTER 2018-01-07 08:00 | Outpatient (CLI) | payer MEDICARE, OTHER | END 2018-01-07 08:01 | disposition home or self-care (01) | LOC: LAB.N 08:00 | PROVIDERS: ATTEND Nurse Practitioner Gerontology | DX: I48.91 Unspecified atrial fibrillation (principal) | CPT/HCPCS: 85610 ==

== ENCOUNTER 2018-01-11 14:37 | Outpatient (CLI) | payer MEDICARE, OTHER | END 2018-01-11 14:38 | disposition home or self-care (01) | LOC: LAB.N 14:37 | PROVIDERS: ATTEND Nurse Practitioner Gerontology | DX: I48.91 Unspecified atrial fibrillation (principal) | CPT/HCPCS: 85610 ==

== ENCOUNTER 2018-01-17 13:55 | Outpatient (CLI) | payer MEDICARE, OTHER | END 2018-01-17 13:56 | LOC: LAB.N 13:55 | PROVIDERS: ATTEND Nurse Practitioner Gerontology | DX: I48.91 Unspecified atrial fibrillation (principal) | CPT/HCPCS: 85610 ==

== ENCOUNTER 2018-01-22 08:00 | Outpatient (CLI) | payer MEDICARE, OTHER | END 2018-01-22 08:01 | disposition home or self-care (01) | LOC: LAB.N 08:00 | PROVIDERS: ATTEND Nurse Practitioner Gerontology | DX: I48.91 Unspecified atrial fibrillation (principal) | CPT/HCPCS: 85610 ==

== ENCOUNTER 2018-01-28 08:00 | Outpatient (CLI) | payer MEDICARE, OTHER | END 2018-01-28 08:01 | LOC: LAB.N 08:00 | PROVIDERS: ATTEND Nurse Practitioner Gerontology | DX: I48.91 Unspecified atrial fibrillation (principal) | CPT/HCPCS: 85610 ==

== ENCOUNTER 2018-02-04 13:27 | Outpatient (CLI) | payer MEDICARE, OTHER | END 2018-02-04 13:28 | disposition home or self-care (01) | LOC: LAB.N 13:27 | PROVIDERS: ATTEND Nurse Practitioner Gerontology | DX: I48.91 Unspecified atrial fibrillation (principal) | CPT/HCPCS: 85610 ==

== ENCOUNTER 2018-02-27 13:14 | Outpatient (CLI) | payer MEDICARE, OTHER | END 2018-02-27 13:15 | disposition home or self-care (01) | LOC: LAB.N 13:14 | PROVIDERS: ATTEND Nurse Practitioner Gerontology | DX: I48.91 Unspecified atrial fibrillation (principal) | CPT/HCPCS: 36415; 85610 ==

== ENCOUNTER 2018-02-27 13:36 | Outpatient (CLI) | payer MEDICARE, OTHER ==
--- NOTE | 2018-02-27 16:14 | XRAY Report ---
Reason: PAIN IN LEFT HIP Procedure Date: 02/27/2018 Accession Number: [id number] / [id number] Procedure: XRN - Hip w/Pelvis 2-3V LT CPT Code: FULL RESULT: EXAM: LEFT HIP AND PELVIS RADIOGRAPHY EXAM DATE: 02/27/2018 02:39 PM. HISTORY: Pain in left hip. COMPARISONS: 12/29/2013 2:51 PM. TECHNIQUE: 1 view of the pelvis and 1 view of the hip. FINDINGS: There is essentially complete loss of joint space in the left femoral acetabular joint with sclerosis and deformity of the left femoral head. There is no acute fracture or dislocation. Note is made of severe atherosclerosis. 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 RADIA
--- NOTE | 2018-02-27 16:14 | XRAY Report ---
Reason: pain in l thigh Procedure Date: 02/27/2018 Accession Number: [id number] / [id number] Procedure: XRN - Femur 2V LT CPT Code: FULL RESULT: EXAM: LEFT FEMUR RADIOGRAPHY EXAM DATE: 02/27/2018 02:39 PM. CLINICAL HISTORY: Pain in left thigh. COMPARISON: None. TECHNIQUE: 2 views. FINDINGS: No femoral fracture or dislocation. Regarding the changes of the femoral head, refer to the dictation of the hip. Severe atherosclerosis is noted. A surgical clip in the soft tissues at the level of the knee may represent prior vascular procedure. IMPRESSION: No fracture or dislocation. RADIA
== END 2018-02-27 13:37 | disposition home or self-care (01) ==
LOC: DI.N 13:36
PROVIDERS: ATTEND Family Medicine
DX: M25.552 Pain in left hip (principal); M79.652 Pain in left thigh; I48.91 Unspecified atrial fibrillation
CPT/HCPCS: 36415; 85610

== ENCOUNTER 2018-02-28 14:40 | Outpatient (CLI) | payer MEDICARE, OTHER ==
[2018-02-28 18:58] LABS: INR 3.4 (0.8-1.2); PT - PROTHROMBIN TIME 36.7 secs (9.9-12.6)
== END 2018-02-28 14:41 | disposition home or self-care (01) ==
LOC: LAB.N 14:40
PROVIDERS: ATTEND Nurse Practitioner Gerontology
DX: I48.91 Unspecified atrial fibrillation (principal)
CPT/HCPCS: 85610

== ENCOUNTER 2018-03-01 08:00 | Outpatient (CLI) | payer MEDICARE, OTHER ==
[2018-03-01 19:20] LABS: INR 2.6 (0.8-1.2); PT - PROTHROMBIN TIME 28.8 secs (9.9-12.6)
== END 2018-03-01 08:01 | disposition home or self-care (01) ==
LOC: LAB.N 08:00
PROVIDERS: ATTEND Nurse Practitioner Gerontology
DX: I48.91 Unspecified atrial fibrillation (principal)
CPT/HCPCS: 36415; 85610

== ENCOUNTER 2018-03-04 14:17 | Outpatient (CLI) | payer MEDICARE, OTHER | END 2018-03-04 14:18 | disposition home or self-care (01) | LOC: LAB.N 14:17 | PROVIDERS: ATTEND Nurse Practitioner Gerontology | DX: I48.91 Unspecified atrial fibrillation (principal) | CPT/HCPCS: 85610 ==

== ENCOUNTER 2018-03-11 14:39 | Outpatient (CLI) | payer MEDICARE, OTHER | END 2018-03-11 14:40 | disposition home or self-care (01) | LOC: LAB.N 14:39 | PROVIDERS: ATTEND Nurse Practitioner Gerontology | DX: I48.91 Unspecified atrial fibrillation (principal) | CPT/HCPCS: 85610 ==

== ENCOUNTER 2018-03-18 13:40 | Outpatient (CLI) | payer MEDICARE, OTHER ==
[2018-03-18 19:17] LABS: INR 3.6 (0.8-1.2); PT - PROTHROMBIN TIME 40.7 secs (9.9-12.6)
[2018-03-18 19:35] LABS: CALCIUM 7.9 mg/dL (8.5-10.3); CREATININE 1.4 mg/dL (0.6-1.2)
[2018-03-18 19:46] LABS: FERRITIN 125.1 ng/mL (23.9-336.2)
[2018-03-18 19:58] LABS: HB2 TOTAL 11.6 g/dL; HEMOGLOBIN A1C 0.74 g/dL
[2018-03-18 20:29] LABS: FOLATE > 49.60 ng/mL (5.90 - >24.8)
== END 2018-03-18 13:41 | disposition home or self-care (01) ==
LOC: LAB.N 13:40
PROVIDERS: ATTEND Family Medicine
DX: D50.9 Iron deficiency anemia, unspecified (principal); D52.9 Folate deficiency anemia, unspecified; D51.8 Other vitamin B12 deficiency anemias; E11.65 Type 2 diabetes mellitus with hyperglycemia; I48.91 Unspecified atrial fibrillation
CPT/HCPCS: 36415; 80048; 82607; 82728; 82746; 83036; 83540; 84466; 85610

== ENCOUNTER 2018-03-20 13:45 | Outpatient (CLI) | payer MEDICARE, OTHER | END 2018-03-20 13:46 | disposition home or self-care (01) | LOC: LAB.N 13:45 | PROVIDERS: ATTEND Nurse Practitioner Gerontology | DX: I48.91 Unspecified atrial fibrillation (principal) | CPT/HCPCS: 85610 ==

== ENCOUNTER 2018-03-29 14:12 | Outpatient (CLI) | payer MEDICARE, OTHER ==
[2018-03-29 18:59] LABS: PT - PROTHROMBIN TIME 97.7 secs (9.9-12.6)
[2018-03-29 19:17] LABS: INR 8.8 (0.8-1.2)
== END 2018-03-29 14:13 | disposition home or self-care (01) ==
LOC: LAB.N 14:12
PROVIDERS: ATTEND Family Medicine
DX: I48.91 Unspecified atrial fibrillation (principal)
CPT/HCPCS: 36415; 85610

== ENCOUNTER 2018-04-01 13:42 | Outpatient (CLI) | payer MEDICARE, OTHER ==
[2018-04-01 18:56] LABS: INR 3.6 (0.8-1.2); PT - PROTHROMBIN TIME 40.6 secs (9.9-12.6)
== END 2018-04-01 13:43 | disposition home or self-care (01) ==
LOC: LAB.N 13:42
PROVIDERS: ATTEND Family Medicine
DX: I48.91 Unspecified atrial fibrillation (principal)
CPT/HCPCS: 36415; 85610

== ENCOUNTER 2018-04-08 14:51 | Outpatient (CLI) | payer MEDICARE, OTHER | END 2018-04-08 14:52 | disposition home or self-care (01) | LOC: LAB.N 14:51 | PROVIDERS: ATTEND Nurse Practitioner Gerontology | DX: I48.91 Unspecified atrial fibrillation (principal) | CPT/HCPCS: 85610 ==

== ENCOUNTER 2018-04-15 14:10 | Outpatient (CLI) | payer MEDICARE, OTHER | END 2018-04-15 14:11 | disposition home or self-care (01) | LOC: LAB.N 14:10 | PROVIDERS: ATTEND Nurse Practitioner Gerontology | DX: I48.91 Unspecified atrial fibrillation (principal) | CPT/HCPCS: 85610 ==

== ENCOUNTER 2018-04-17 08:00 | Outpatient (CLI) | payer MEDICARE, OTHER ==
[2018-04-17 19:11] LABS: PT - PROTHROMBIN TIME 71.2 secs (9.9-12.6)
[2018-04-17 19:21] LABS: BASOPHILS # (AUTO) 0.1 10^3/uL (0.0-0.1); BASOPHILS % (AUTO) 1.3 %; EOSINOPHILS # (AUTO) 0.2 10^3/uL (0.0-0.7); EOSINOPHILS % (AUTO) 2.1 %; HGB - HEMOGLOBIN 11.7 g/dL (14.0-18.0); LYMPHOCYTES # (AUTO) 1.2 10^3/uL (1.5-3.5); LYMPHOCYTES % (AUTO) 15.6 %; MEAN CORPUSCULAR HEMOGLOBIN 27.9 pg (27.0-31.0); MEAN CORPUSCULAR VOLUME 84.5 fL (80.0-94.0); MEAN PLATELET VOLUME 7.6 fL (7.4-11.4); MONOCYTES # (AUTO) 0.5 10^3/uL (0.0-1.0); MONOCYTES % (AUTO) 6.5 %; NEUTROPHILS # (AUTO) 5.7 10^3/uL (1.5-6.6); NEUTROPHILS % (AUTO) 74.5 %; PLT - PLATELET COUNT 374 10^3/uL (130-450); RED BLOOD COUNT 4.21 10^6/uL (4.70-6.10); RED CELL DISTRIBUTION WIDTH 17.3 % (12.0-15.0); WHITE BLOOD COUNT 7.6 x10^3/uL (4.8-10.8)
[2018-04-17 19:31] LABS: INR 6.4 (0.8-1.2)
[2018-04-17 19:33] LABS: ALBUMIN 3.7 g/dL (3.2-5.5); ALBUMIN/GLOBULIN RATIO 0.9 (1.0-2.2); BILIRUBIN,TOTAL 0.3 mg/dL (0.2-1.0); CREATININE 1.4 mg/dL (0.6-1.2); TOTAL PROTEIN 7.8 g/dL (6.7-8.2)
[2018-04-17 19:34] LABS: CALCIUM 6.5 mg/dL (8.5-10.3)
== END 2018-04-17 08:01 ==
LOC: LAB.N 08:00
PROVIDERS: ATTEND Nurse Practitioner Gerontology
DX: I48.91 Unspecified atrial fibrillation (principal); R06.00 Dyspnea, unspecified; D50.9 Iron deficiency anemia, unspecified; I42.9 Cardiomyopathy, unspecified
CPT/HCPCS: 36415; 80053; 83880; 85025; 85610; 85651

== ENCOUNTER 2018-04-17 15:20 | Outpatient (CLI) | payer MEDICARE, OTHER ==
--- NOTE | 2018-04-18 09:43 | XRAY Report ---
Reason: abnormal breath sounds;dyspnea Procedure Date: 04/17/2018 Accession Number: [id number] / [id number] Procedure: XRN - Chest 2 View X-Ray CPT Code: 03595 FULL RESULT: EXAM: CHEST RADIOGRAPHY EXAM DATE: 04/17/2018 03:58 PM. CLINICAL HISTORY: Abnormal breath sounds; dyspnea. COMPARISON: CHEST 1 VIEW 04/04/2017 4:46 PM. TECHNIQUE: 2 views. FINDINGS: Lungs/Pleura: Mild haziness at the left lung base, in the setting of a small pleural effusion on that side, similar appearance on the AP view compared to prior. Otherwise, no new airspace disease is detected. No pneumothorax. Mediastinum: The cardiomediastinal silhouette including tortuous calcified aorta and cardiomegaly with prominent pulmonary vessels is relatively unchanged. Other: Dual-lead AICD, tracheostomy and median sternotomy changes are stable. IMPRESSION: Stable exam with evidence of heart failure and stable small left pleural effusion, presumed cardiogenic. RADIA
== END 2018-04-17 15:21 | disposition home or self-care (01) ==
LOC: DI.N 15:20
PROVIDERS: ATTEND Family Medicine
DX: I50.9 Heart failure, unspecified (principal); J90 Pleural effusion, not elsewhere classified; I48.91 Unspecified atrial fibrillation; R06.00 Dyspnea, unspecified; D50.9 Iron deficiency anemia, unspecified; I42.9 Cardiomyopathy, unspecified
CPT/HCPCS: 36415; 71046; 80053; 83880; 85025; 85610; 85651

== ENCOUNTER 2018-04-17 16:00 | Outpatient (CLI) | payer MEDICARE, OTHER | END 2018-04-17 23:59 | LOC: RT.N 16:00 | PROVIDERS: ATTEND Family Medicine | DX: R06.00 Dyspnea, unspecified (principal) | CPT/HCPCS: 85610; 93005 ==

== ENCOUNTER 2018-04-18 15:03 | Outpatient (CLI) | payer MEDICARE, OTHER | END 2018-04-18 23:59 | LOC: LAB.N 15:03 | PROVIDERS: ATTEND Nurse Practitioner Gerontology | DX: I48.91 Unspecified atrial fibrillation (principal) | CPT/HCPCS: 85610 ==

== ENCOUNTER 2018-04-19 11:45 | Inpatient (IN) | payer MEDICARE, OTHER ==
[2018-04-19 12:44] LABS: INR 1.4 (0.8-1.2); PT - PROTHROMBIN TIME 15.8 secs (9.9-12.6)
--- NOTE | 2018-04-19 12:59 | ED Physician Documentation ---
PD HPI SYNCOPE - Stated complaint Stated Complaint: SOA - Chief complaint Chief Complaint: Resp - History obtained from History obtained from: Patient - History of Present Illness Timing - onset: Other (72-year-old gentleman with history of atrial fibrillation remote history of coronary bypass. He has a tracheostomy for history of laryngeal cancer and is oxygen dependent at home. The last couple of weeks he has had an increasing productive cough with white foamy sputum and today got up to go to the bathroom and felt very dizzy and crumpled down to the floor without syncope or injury. He feels back to normal now except for cough and shortness of breath. He also complains of left hip pain but that is not an acute issue.) Review of Systems Ten Systems: 10 systems reviewed and negative Constitutional: reports: Fatigue. denies: Fever, Chills Cardiac: denies: Chest pain / pressure, Palpitations Respiratory: reports: Dyspnea, Cough GI: denies: Abdominal Pain PD PAST MEDICAL HISTORY - Past Medical History Cardiovascular: Congestive heart failure, Hypertension, High cholesterol, Coronary artery disease, [place] Respiratory: COPD, Shortness of breath, Sleep apnea, CPAP use, Other (prior laryngeal surgery with trach chronically. ) Endocrine/Autoimmune: Type 2 diabetes GI: GERD : None HEENT: Other Psych: None Musculoskeletal: Osteoarthritis Derm: None - Past Surgical History Past Surgical History: Yes General: Other Cardiovascular: CABG HEENT: Cataracts, Tracheostomy - Present Medications Home Medications: Ambulatory Orders Medication Instructions Recorded Confirmed RX: Trazodone HCl 100 mg PO QPM PRN 10/15/12 04/19/18 RX: glipiZIDE [Glucotrol] 20 mg PO BIDAC 10/15/12 04/19/18 RX: Omeprazole [PriLOSEC] 20 mg PO QDAC 04/29/13 04/19/18 RX: SITagliptin [Januvia] 100 mg PO DAILY 02/14/17 04/19/18 RX: Tamsulosin [Flomax] 0.4 mg PO DAILY 02/14/17 04/19/18 RX: Warfarin Sodium 7.5 mg PO SUTUTHSA 02/14/17 04/19/18 RX: Warfarin Sodium [Coumadin] 10 mg PO MOWEFR 02/14/17 04/19/18 RX: Albuterol Sulfate [Proair Hfa 2 puffs INH Q4H PRN 04/05/17 04/19/18 Inhaler] RX: Ipratropium/Albuterol [Duoneb] 3 ml INH QID 04/05/17 04/19/18 RX: Magnesium Oxide [Mag-Oxide] 200 mg PO DAILY #30 tablet 04/06/17 04/19/18 Amiodarone [Pacerone] 200 mg PO DAILY 04/19/18 04/19/18 Fluticasone/Salmeterol [Advair Hfa 2 puffs INH BID 04/19/18 04/19/18 230-21 Mcg Inhaler] Furosemide [Lasix] 40 mg PO BID 04/19/18 04/19/18 Losartan [Cozaar] 50 mg PO DAILY 04/19/18 04/19/18 RX: B6/Levomefolate/B12/Ala/If 1 tab PO BID 04/19/18 04/19/18 [Abatrex with Ala Tablet] RX: Ferrous Sulfate 325 mg PO DAILY 04/19/18 04/19/18 RX: Metformin HCl 1,000 mg PO BID 04/19/18 04/19/18 RX: Metoprolol Succinate 100 mg PO DAILY 04/19/18 04/19/18 RX: Potassium Chloride 10 meq PO DAILY 04/19/18 04/19/18 - Allergies Allergies/Adverse Reactions: Allergies Allergy/AdvReac Type Severity Reaction Status Date / Time No Known Drug Allergies Allergy Verified 04/19/18 11:56 - Social History Does the pt smoke?: Yes Smoking Status: Current every day smoker Does the pt drink ETOH?: No Does the pt have substance abuse?: No - Family History Family history: reports: Non contributory - POLST Patient has POLST: No POLST Status: Full Code PD ED PE NORMAL - Vitals Vital signs reviewed: Yes - General General: Alert and oriented X 3, No acute distress - HEENT HEENT: PERRL, EOMI, Ears normal, Pharynx benign - Neck Neck: Other (Tracheostomy in place) - Cardiac Cardiac: No murmur, Other (irregular) - Respiratory Respiratory: No respiratory distress, Other (Very diminished especially at the left base with squeaky wheezes throughout) - Abdomen Abdomen: Soft, Non tender - Back Back: No CVA TTP, No spinal TTP - Extremities Extremities: No edema, No calf tenderness / cord - Neuro Neuro: Alert and oriented X 3, Normal speech Results - Vitals Vitals: Vital Signs - 24 hr 04/19/18 04/19/18 04/19/18 11:48 13:32 13:57 Temperature 35.7 C L Heart Rate 63 63 64 Respiratory 20 18 Rate Blood Pressure 132/115 H 126/65 O2 Saturation 95 96 Oxygen O2 Source [With Activity] 3L O2 via NC O2 Source Nasal cannula Oxygen Flow Rate 3 - EKG (time done) 1201 Rate: Rate (enter#) (61) Rhythm: Atrial fibrillation [place]: Normal Intervals: LBBB Ischemia: Non specific changes Computer interpretation: Agree with computer - Labs Labs: Laboratory Tests 04/19/18 04/19/18 04/19/18 12:27 12:40 12:40 WBC RBC Hgb Hct MCV MCH MCHC RDW Plt Count MPV Neut # (Auto) Lymph # (Auto) [place] # (Auto) Eos # (Auto) Baso # (Auto) Absolute Nucleated RBC Nucleated RBC % PT 15.8 H INR 1.4 H VBG pH Ionized Calcium Sodium 138 Potassium 3.9 Chloride 96 L Carbon Dioxide 26 Anion Gap 16.0 H BUN 35 H Creatinine 2.3 H Estimated GFR (MDRD) 28 L Glucose 85 Lactic Acid Calcium 5.8 L* Total Bilirubin 0.7 AST 23 ALT 18 Alkaline Phosphatase 84 Total Creatine Kinase 252 CK-MB (CK-2) 5.7 Troponin I < 0.04 B-Natriuretic Peptide Total Protein 8.1 Albumin 3.7 Globulin 4.4 H Albumin/Globulin Ratio 0.8 L Lipase 24 04/19/18 04/19/18 04/19/18 13:00 13:00 13:00 WBC 14.4 H RBC 4.21 L Hgb 11.7 L Hct 35.0 L MCV 83.0 MCH 27.7 MCHC 33.3 RDW 17.2 H Plt Count 380 MPV 7.1 L Neut # (Auto) 13.4 H Lymph # (Auto) 0.5 L [place] # (Auto) 0.4 Eos # (Auto) 0.0 Baso # (Auto) 0.1 Absolute Nucleated RBC 0.02 Nucleated RBC % 0.1 PT INR VBG pH Ionized Calcium Sodium Potassium Chloride Carbon Dioxide Anion Gap BUN Creatinine Estimated GFR (MDRD) Glucose Lactic Acid 1.7 Calcium Total Bilirubin AST ALT Alkaline Phosphatase Total Creatine Kinase CK-MB (CK-2) Troponin I B-Natriuretic Peptide 56 Total Protein Albumin Globulin Albumin/Globulin Ratio Lipase 04/19/18 13:40 WBC RBC Hgb Hct MCV MCH MCHC RDW Plt Count MPV Neut # (Auto) Lymph # (Auto) [place] # (Auto) Eos # (Auto) Baso # (Auto) Absolute Nucleated RBC Nucleated RBC % PT INR VBG pH 7.376 Ionized Calcium 0.66 L* Sodium Potassium Chloride Carbon Dioxide Anion Gap BUN Creatinine Estimated GFR (MDRD) Glucose Lactic Acid Calcium Total Bilirubin AST ALT Alkaline Phosphatase Total Creatine Kinase CK-MB (CK-2) Troponin I B-Natriuretic Peptide Total Protein Albumin Globulin Albumin/Globulin Ratio Lipase PD MEDICAL DECISION MAKING - ED course ED course: 72-year-old gentleman with history of tracheostomy and remote history of artery bypass presents with shortness of breath and a near syncopal episode today. Workup demonstrates absent breath sounds at the left base and corresponding left retrocardiac pneumonia with a white count of 14.4. His INR which has been high lately is now subtherapeutic. He is noted to have acute renal failure in a prerenal azotemia pattern which should be treatable with IV fluids and severe hypocalcemia which is treated with IV calcium. He has structural lung disease and after blood cultures I ordered cefepime and Levaquin, note that the choice was made not to give him Rocephin given a cross reaction with IV calcium. Spoke with Dr. Araujo for admission at 1:54 PM. Departure - Departure Disposition: [facility] DC/Xfer Clinical Impression: Hypocalcemia, Pneumonia, ARF (acute renal failure) Discharge Date/Time: 04/19/18 16:15
[2018-04-19] MEDS ORDERED: SODIUM CHLORIDE 0.9% 1,000 ML IV ONE (13:07)
[2018-04-19] MEDS ORDERED: ALBUTEROL NEB 2.5 MG/3 ML INH STA (13:07)
[2018-04-19 13:08] LABS: BASOPHILS # (AUTO) 0.1 10^3/uL (0.0-0.1); BASOPHILS % (AUTO) 0.5 %; EOSINOPHILS % (AUTO) 0.1 %; HGB - HEMOGLOBIN 11.7 g/dL (14.0-18.0); LYMPHOCYTES # (AUTO) 0.5 10^3/uL (1.5-3.5); LYMPHOCYTES % (AUTO) 3.8 %; MEAN CORPUSCULAR HEMOGLOBIN 27.7 pg (27.0-31.0); MEAN CORPUSCULAR HGB CONC 33.3 g/dL (32.0-36.0); MEAN PLATELET VOLUME 7.1 fL (7.4-11.4); MONOCYTES # (AUTO) 0.4 10^3/uL (0.0-1.0); MONOCYTES % (AUTO) 2.7 %; NEUTROPHILS # (AUTO) 13.4 10^3/uL (1.5-6.6); NEUTROPHILS % (AUTO) 92.9 %; PLT - PLATELET COUNT 380 10^3/uL (130-450); RED BLOOD COUNT 4.21 10^6/uL (4.70-6.10); RED CELL DISTRIBUTION WIDTH 17.2 % (12.0-15.0); WHITE BLOOD COUNT 14.4 x10^3/uL (4.8-10.8)
[2018-04-19 13:26] LABS: TROPONIN I < 0.04 ng/mL (<0.49)
[2018-04-19 13:27] LABS: ALBUMIN 3.7 g/dL (3.2-5.5); ALBUMIN/GLOBULIN RATIO 0.8 (1.0-2.2); BILIRUBIN,TOTAL 0.7 mg/dL (0.2-1.0); CREATININE 2.3 mg/dL (0.6-1.2); TOTAL PROTEIN 8.1 g/dL (6.7-8.2)
[2018-04-19 13:30] LABS: CREATINE KINASE MB 5.7 ng/mL (0.6-6.3)
[2018-04-19 13:34] LABS: CALCIUM 5.8 mg/dL (8.5-10.3)
[2018-04-19] MEDS ORDERED: CALCIUM GLUCONATE 1,000 MG in SODIUM CHLORIDE 0.9% 50 ML IV STA (13:45)
[2018-04-19] MEDS ORDERED: levoFLOXacin 750 MG/150 ML 750 MG/150 ML BAG IV STA (13:46)
[2018-04-19] MEDS ORDERED: CEFEPIME 2 GM in SODIUM CHLORIDE 0.9% MINIBAG 100 ML IV STA (13:47)
[2018-04-19 13:49] LABS: VBG PH 7.376 (7.31-7.41)
--- NOTE | 2018-04-19 14:07 | XRAY Report ---
Reason: dyspnea, syncope Procedure Date: 04/19/2018 Accession Number: [id number] / [id number] Procedure: XR - Chest 2 View X-Ray CPT Code: 06207 FULL RESULT: EXAM: CHEST RADIOGRAPHY EXAM DATE: 04/19/2018 01:37 PM. CLINICAL HISTORY: Dyspnea, syncope. COMPARISON: 04/17/2018. TECHNIQUE: 2 views. FINDINGS: Tracheostomy and pacemaker/AICD project in similar position. Hazy left basilar opacity and small left pleural effusion versus pleural thickening are similar in appearance. No new consolidation. No right pleural effusion. No pneumothorax. IMPRESSION: No acute cardiopulmonary abnormality. RADIA
[2018-04-19] MEDS ORDERED: SODIUM CHLORIDE FLUSH 0.9% 10 ML SYRINGE IVP PRN (14:37)
[2018-04-19] MEDS ORDERED: ACETAMINOPHEN 325 MG TABLET PO PRN (14:37)
[2018-04-19] MEDS ORDERED: traZODone 50 MG TABLET PO PRN (14:53)
[2018-04-19] MEDS ORDERED: LEVALBUTEROL 1.25 MG/3 ML NEB INH SCH (17:00)
[2018-04-19] MEDS: glipiZIDE 5 MG TABLET PO SCH (17:47)
[2018-04-19] MEDS: INSULIN ASPART 300 UNIT/3 ML PEN SUBQ SCH ×2 (17:49→20:58)
[2018-04-19] MEDS: SODIUM CHLORIDE FLUSH 0.9% 10 ML SYRINGE IVP SCH (18:12)
--- NOTE | 2018-04-19 19:19 | HISTORY & PHYSICAL EXAMINATION ---
DATE OF SERVICE: 04/19/2018 Physician: Jenni Araujo MD HISTORY OF PRESENT ILLNESS: This is a 72-year-old white male with a history of diabetes, laryngeal cancer with a tracheostomy, COPD, history of coronary artery disease and chronic atrial fibrillation, on Coumadin. The patient developed shortness of breath, wheezing, and a productive cough 3 days ago and presented with these symptoms. He also reports that he was so weak that he had near syncope while walking today, but no full syncope and no trauma when he fell. He is found to have infiltrates on chest x-ray and dehydration with prerenal azotemia, also marked hypocalcemia and is being admitted for management of the above. PAST MEDICAL HISTORY: Tracheostomy after laryngeal cancer, diabetes on several agents, history of coronary artery disease, chronic atrial fibrillation on Coumadin. ALLERGIES: None. MEDICATIONS 1. B vitamins. 2. Amiodarone 200 mg daily. 3. Losartan 50 mg daily. 4. Warfarin 7.5 alternating with 10 mg daily. 5. Trazodone 100 mg every night p.r.n. sleep. 6. Flomax 0.4 mg daily. 7. Januvia 100 mg daily. 8. Prilosec 20 mg daily. 9. Potassium chloride 20 mEq daily. 10. Toprol-XL 100 mg daily. 11. Metformin 1000 mg b.i.d. 12. Magnesium oxide 200 mg daily. 13. DuoNeb inhaler q.i.d. 14. Glucotrol 20 mg b.i.d. 15. Lasix 40 mg b.i.d. 16. Advair inhaler b.i.d. 17. Iron 325 mg daily. 18. ProAir inhaler q.4 hours p.r.n. REVIEW OF SYSTEMS: A comprehensive review of systems was performed and the pertinent positives are in the HPI, the rest are negative. FAMILY HISTORY: No inherited diseases. SOCIAL HISTORY: He lives independently, is a nonsmoker, drinks no alcohol. PHYSICAL EXAMINATION GENERAL: Very pale-appearing, elderly white male. He is in mild respiratory distress. He speaks normally when he closes his tracheostomy orifice. VITAL SIGNS: Blood pressure 102/80, heart rate 70-80 in atrial fibrillation, afebrile, 3 liter nasal cannula, saturation is 96%. HEENT: Reveals dry oral mucosa and marked skin pallor. There is no scleral icterus. NECK: Shows no JVD, but has a trach collar. He has a trach in place. CHEST: Bilaterally diminished breath sounds, but no rales or wheezes. CARDIOVASCULAR: Heart sounds are distant. No audible murmur. No RV heave. ABDOMEN: Obese, nontender. Normal bowel sounds. EXTREMITIES: Show 1+ pretibial edema. No clubbing or cyanosis. NEUROLOGIC: Intact. LABORATORY DATA: Sodium 138, potassium 3.9, BUN 35, creatinine 2.3 (usual creatinine is 1.0). His lactic acid is 1.7, calcium level 5.8, normal liver tests, normal bilirubin. Troponin not detectable. BNP normal at 56. Lipase normal. White blood count elevated at 14.4 with a left shift, hemoglobin 11.7, platelet count 380. Venous blood gas showed a pH of 7.38. INR is 1.4. EKG: Atrial fibrillation, left anterior fascicular block, poor R-wave progression, left IVCD. Chest x-ray: bilateral basilar infiltrates and a small left pleural effusion. IMPRESSION/DIAGNOSES: 1. Community-acquired pneumonia. 2. Chronic obstructive pulmonary disease exacerbation. 3. Near-syncope. 4. Acute kidney injury and evidence of prerenal azotemia and dehydration. 5. Hypocalcemia of unknown cause 6. Diabetes mellitus type 2. 7. Chronic atrial fibrillation on Coumadin. Low INR (Coumadin was on hold for several days because INR was too high). 8. History of coronary artery disease. PLAN: Admit the patient to a [facility] telemetry bed to monitor his atrial fibrillation rate. Continue with his Coumadin management. Obtain blood cultures and sputum cultures. Begin the patient on IV empiric antibiotics using Cefepime and Zithromax to cover community-acquired pneumonia. Begin nebulizers, steroids if needed, Mucinex for his cough. Follow his sugars and cover with sliding scale insulin, but will allow his oral diabetic medication except metformin will be on hold, in case need for CT scan with dye. Follow his electrolytes, BUN and creatinine and start gentle fluids. Stop his potassium because of the acute renal failure, replace his calcium and check calcium and magnesium and electrolytes daily. Check a PTH and vitamin D level. Since he is in atrial fibrillation, the Amiodarone is not maintaining sinus rhythm and this will be discontinued. Deep venous thrombosis prophylaxis: Pharmaceutical with plan for a therapeutic INR. CODE STATUS: FULL CODE. ATTESTATION: The patient is expected to be discharged or transferred to another facility within 96 hours: Yes. cc: Raul Delaney MD TD: 04/19/2018 18:51 MTDD
[2018-04-19] MEDS: BUDESONIDE 0.5 MG/2 ML NEB INH SCH (19:41)
[2018-04-19] MEDS: IPRATROPIUM 0.2 MG/ML NEB INH SCH (19:41)
[2018-04-19] MEDS: FORMOTEROL FUMARATE NEB 20 MCG/2 ML INH SCH (19:41)
[2018-04-19] MEDS ORDERED: WARFARIN 5 MG TABLET PO SCH (21:00)
[2018-04-20] MEDS: SODIUM CHLORIDE FLUSH 0.9% 10 ML SYRINGE IVP SCH ×3 (01:03→16:17)
[2018-04-20] MEDS: SODIUM CHLORIDE 0.9% 1,000 ML IV SCH ×3 (01:03→11:39)
[2018-04-20 06:44] LABS: BASOPHILS # (AUTO) 0.1 10^3/uL (0.0-0.1); BASOPHILS % (AUTO) 0.5 %; HGB - HEMOGLOBIN 10.6 g/dL (14.0-18.0); LYMPHOCYTES # (AUTO) 0.6 10^3/uL (1.5-3.5); LYMPHOCYTES % (AUTO) 5.7 %; MEAN CORPUSCULAR HEMOGLOBIN 28.2 pg (27.0-31.0); MEAN CORPUSCULAR HGB CONC 33.6 g/dL (32.0-36.0); MEAN CORPUSCULAR VOLUME 83.8 fL (80.0-94.0); MEAN PLATELET VOLUME 7.1 fL (7.4-11.4); MONOCYTES # (AUTO) 0.6 10^3/uL (0.0-1.0); MONOCYTES % (AUTO) 5.9 %; NEUTROPHILS # (AUTO) 8.9 10^3/uL (1.5-6.6); NEUTROPHILS % (AUTO) 87.9 %; PLT - PLATELET COUNT 346 10^3/uL (130-450); RED BLOOD COUNT 3.76 10^6/uL (4.70-6.10); RED CELL DISTRIBUTION WIDTH 17.3 % (12.0-15.0); WHITE BLOOD COUNT 10.1 x10^3/uL (4.8-10.8)
[2018-04-20] MEDS: glipiZIDE 5 MG TABLET PO SCH ×2 (06:44→16:17)
[2018-04-20] MEDS: CEFEPIME 1 GM in SODIUM CHLORIDE 0.9% MINIBAG 100 ML IV SCH ×2 (06:46→18:05)
[2018-04-20 07:04] LABS: HB2 TOTAL 10.8 g/dL; HEMOGLOBIN A1C 0.63 g/dL; HEMOGLOBIN A1C % 7.5 % (4.6-6.2)
[2018-04-20 07:08] LABS: CREATININE 1.7 mg/dL (0.6-1.2)
[2018-04-20 07:09] LABS: CALCIUM 5.6 mg/dL (8.5-10.3)
[2018-04-20] MEDS: IPRATROPIUM 0.2 MG/ML NEB INH SCH ×4 (07:20→19:34)
[2018-04-20] MEDS: BUDESONIDE 0.5 MG/2 ML NEB INH SCH ×2 (07:20→19:34)
[2018-04-20] MEDS: FORMOTEROL FUMARATE NEB 20 MCG/2 ML INH SCH ×2 (07:20→19:34)
[2018-04-20] MEDS: LEVALBUTEROL 1.25 MG/3 ML NEB INH PRN ×3 (07:20→15:22)
[2018-04-20] MEDS: INSULIN ASPART 300 UNIT/3 ML PEN SUBQ SCH ×4 (08:15→22:24)
[2018-04-20] MEDS: METOPROLOL SUCCINATE 50 MG TABLET PO SCH (08:16)
[2018-04-20] MEDS: POLYETHYLENE GLYCOL 3350 17 GM PACKET PO SCH (08:17)
[2018-04-20] MEDS: TAMSULOSIN 0.4 MG CAPSULE PO SCH (08:17)
[2018-04-20] MEDS: FAMOTIDINE 20 MG TABLET PO SCH (08:17)
--- NOTE | 2018-04-20 08:37 | PROVIDER PROGRESS NOTE ---
Assessment/Plan - Problem List (1) CAP (community acquired pneumonia) Qualifiers: Laterality: left Lung location: lower lobe of lung Qualified Code(s): J18.1 - Lobar pneumonia, unspecified organism Assessment/Plan: Blood cultures neg to date. Sputum gram stain showed mixed organisms including fungi/yeast. Continue empiric iv antibiotics: Cefipime and Levaquin. A 7-10 day total course is planned. (2) COPD exacerbation Assessment/Plan: Much improved with nebs, Mucinex and supplemental oxygen. He did not need iv steroids. (3) RUSLAN (acute kidney injury) Assessment/Plan: Improved BUN/creat with stopping his home Lasix, iv meds and fluids. Monitor BMP daily. (4) Hypocalcemia Assessment/Plan: Ca level was even lower today. Will start TUMS tid. Mag level also severely low, making urinary loss possible. 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 (5) Hypomagnesemia Assessment/Plan: Will replace with iv riders and start po daily Mag. Will check for Hypomagnesemia-Hypercalciuria syndrome by checking urine trace element levels. (6) Chronic systolic CHF (congestive heart failure), NYHA class 3 Assessment/Plan: Echo (2D limited done, to recheck the LVEF) did show a small decline in EF. The BNP was 59, indicating no volume overload or CHF exacerbation currently, which is consistent with his pre-renal azotemia and clinical dehydration. His Lasix is currently on hold, therefore. Continue Metoprolol and Losartan. (7) Hypertension Qualifiers: Assessment/Plan: BP controlled on B-mehran and Losartan, in fact he is a bit low due to dehydration. Lasix is on hold. (8) DM type 2 (diabetes mellitus, type 2) Assessment/Plan: A1c is 6.5, indicating good DM control. Continue his oral agents and carb-control diet. The ss Insulin is there if needed. - Current Meds Current Meds: Current Medications Generic Name Dose Route Start Last Admin Trade Name Freq PRN Reason Stop Dose Admin Budesonide 0.5 mg 04/19/18 19:00 04/20/18 07:20 Pulmicort INH 0.5 mg RTBID RONA Administration Famotidine 20 mg 04/20/18 09:00 04/20/18 08:17 Pepcid PO 20 mg DAILY RONA Administration Formoterol Fumarate 20 mcg 04/19/18 19:00 04/20/18 07:20 Perforomist INH 20 mcg RTBID RONA Administration Glipizide 20 mg 04/19/18 16:00 04/20/18 06:44 Glucotrol PO 20 mg BIDAC RONA Administration Sodium Chloride 1,000 mls @ 100 mls/hr 04/19/18 15:00 04/20/18 01:03 Normal Saline 0.9% IV 100 mls/hr .Q10H RONA Administration Cefepime HCl 1 gm/ Sodium 100 mls @ 200 mls/hr 04/20/18 06:00 04/20/18 08:04 Chloride IV Infused Q12H RONA Infusion Insulin Aspart 1 - 5 unit 04/19/18 17:00 04/20/18 08:15 Novolog SUBQ 2 unit 0800,1200,1700,2100 RONA Administration Protocol Ipratropium [place] 0.5 mg 04/19/18 19:00 04/20/18 07:20 Atrovent INH 0.5 mg RTQID RONA Administration Levalbuterol HCl 1.25 mg 04/19/18 18:19 04/20/18 07:20 Xopenex INH 1.25 mg RTQID PRN Administration Wheezing Metoprolol Succinate 100 mg 04/20/18 09:00 04/20/18 08:16 Toprol Xl PO 100 mg DAILY RONA Administration Polyethylene Glycol 17 gm 04/20/18 09:00 04/20/18 08:17 Miralax PO Not Given DAILY RONA Sitagliptin Phosphate 100 mg 04/20/18 09:00 04/20/18 08:16 Januvia PO 100 mg DAILY RONA Administration Sodium Chloride 10 ml 04/19/18 17:00 04/20/18 01:03 Normal Saline Flush 0.9% IVP 10 ml 0100,0900,1700 RONA Administration Tamsulosin HCl 0.4 mg 04/20/18 09:00 04/20/18 08:17 Flomax PO 0.4 mg DAILY RONA Administration Warfarin Sodium 10 mg 04/19/18 21:00 04/19/18 20:59 Coumadin PO 10 mg MoWeFr@2100 RONA Administration - Lab Result Fish Bone Diagrams: 04/20/18 06:25 04/20/18 06:25 - Additional Planning My Orders: My Active Orders 04/19/18 14:37 Activity Orders [RC] Routine IO [RC] IOSHIFT Initiate Bowel Care Protocol [RC] .protocol Initiate Line Care Protocol [RC] .protocol Initiate Line Care Protocol [RC] QSHIFT Initiate Personal Care Protoco [RC] .protocol Oxygen Therapy [RC] Routine Vital Signs [RC] 0800,1600,0000 Acetaminophen [Tylenol] 650 mg PO Q4HR PRN Sodium Chloride Flush 0.9% [Normal Saline Flush 0.9%] 10 ml IVP PRN PRN Code Status [OTHERS] Routine Condition of Patient [OTHERS] Routine DVT Prophylaxis [OTHERS] Routine 04/19/18 14:40 Daily Weight [RC] 0600 IV Insert [RC] .ONCE Incentive Spirometry - RT [RC] Routine Telemetry- [RC] Routine 04/19/18 14:44 Blood Glucose Checks - Eating [RC] 0800,1200,1700,2100 Initiate Hypoglycemia Protocol [RC] .protocol 04/19/18 14:49 Echo Limited [ECHO] Routine 04/19/18 14:53 traZODone [Desyrel] 50 mg PO QPM PRN 04/19/18 15:00 Sodium Chloride 0.9% [Normal Saline 0.9%] 1,000 ml IV 100 mls/hr 04/19/18 16:00 glipiZIDE [Glucotrol] 20 mg PO BIDAC 04/19/18 17:00 Insulin Aspart [NovoLOG] 1 - 5 unit SUBQ 0800,1200,1700,2100 Sodium Chloride Flush 0.9% [Normal Saline Flush 0.9%] 10 ml IVP 0100,0900,1700 04/19/18 17:42 RT [Nebulizer/MDI Tx.] [RC] .QID 04/19/18 18:19 Levalbuterol [Xopenex] 1.25 mg INH RTQID PRN 04/19/18 19:00 Budesonide [Pulmicort] 0.5 mg INH RTBID Formoterol Fumarate [Perforomist] 20 mcg INH RTBID Ipratropium [Atrovent] 0.5 mg INH RTQID 04/19/18 21:00 Warfarin [Coumadin] 10 mg PO MoWeFr@2100 04/19/18 21:30 CUL, RESPIRATORY [RM] Urgent 04/19/18 Dinner Carb-controlled Diet [DIET] 04/20/18 PT WITH INR [COAG] Routine 04/20/18 06:00 MAGNESIUM [CHEM] Routine PARATHYROID HORMONE, INTACT [IAI] Routine VITAMIN D,25-OH,TOTAL,IA [REFLAB] Routine Cefepime 1 gm Sodium Chloride 0.9% Minibag [Normal Saline 0.9% Minibag] 100 ml IV Q12H 04/20/18 09:00 Calcium Carbonate [Tums] 500 mg PO TID Famotidine [Pepcid] 20 mg PO DAILY Metoprolol Succinate [Toprol Xl] 100 mg PO DAILY Polyethylene Glycol 3350 [Miralax] 17 gm PO DAILY SITagliptin [Januvia] 100 mg PO DAILY Tamsulosin [Flomax] 0.4 mg PO DAILY 04/21/18 05:00 BMP - BASIC METABOLIC PANEL [CHEM] DAILYLAB CALCIUM [CHEM] DAILYLAB CBC - COMP BLD CT W/AUTO DIFF [HEME] DAILYLAB PT WITH INR [COAG] DAILYLAB 04/21/18 16:00 levoFLOXacin 750 MG/150 ML [Levaquin 750 mg/150 ml] 750 mg in 150 ml IV Q48H 04/22/18 05:00 BMP - BASIC METABOLIC PANEL [CHEM] DAILYLAB CALCIUM [CHEM] DAILYLAB CBC - COMP BLD CT W/AUTO DIFF [HEME] DAILYLAB PT WITH INR [COAG] DAILYLAB 04/23/18 05:00 BMP - BASIC METABOLIC PANEL [CHEM] DAILYLAB CALCIUM [CHEM] DAILYLAB CBC - COMP BLD CT W/AUTO DIFF [HEME] DAILYLAB PT WITH INR [COAG] DAILYLAB 04/24/18 05:00 PT WITH INR [COAG] DAILYLAB Subjective - Subjective Patient Reports: Other (Feels chills and has gassy abd pain, no nausea, vomiting or diarrhea.) Objective Vital Signs: Vital Signs - 24 hr 04/19/18 04/19/18 04/19/18 11:48 13:32 13:57 Temperature 35.7 C L Heart Rate 63 63 64 Heart Rate [ Brachial] Respiratory 20 18 Rate Blood Pressure 132/115 H 126/65 Blood Pressure [Left Brachial artery] Blood Pressure [Right Brachial artery] O2 Saturation 95 96 04/19/18 04/19/18 04/19/18 15:41 15:43 16:00 Temperature 37 C 36.5 C Heart Rate 75 Heart Rate [ 79 Brachial] Respiratory 18 24 Rate Blood Pressure 104/58 L Blood Pressure 102/88 H [Left Brachial artery] Blood Pressure [Right Brachial artery] O2 Saturation 94 95 04/19/18 04/19/18 04/19/18 17:45 19:53 21:00 Temperature 36.5 C Heart Rate 80 74 Heart Rate [ 80 Brachial] Respiratory 20 22 20 Rate Blood Pressure Blood Pressure [Left Brachial artery] Blood Pressure 129/62 [Right Brachial artery] O2 Saturation 96 04/19/18 04/20/18 04/20/18 23:28 00:50 07:29 Temperature 36.5 C 36.6 C Heart Rate 80 68 Heart Rate [ 68 Brachial] Respiratory 20 20 20 Rate Blood Pressure Blood Pressure [Left Brachial artery] Blood Pressure 135/64 H [Right Brachial artery] O2 Saturation 96 94 04/20/18 07:52 Temperature 36.3 C L Heart Rate Heart Rate [ 61 Brachial] Respiratory 20 Rate Blood Pressure Blood Pressure [Left Brachial artery] Blood Pressure 112/51 L [Right Brachial artery] O2 Saturation 98 Oxygen O2 Source [With Activity] 3L O2 via NC O2 Source Nasal cannula Oxygen Flow Rate 3 I&O (Last 24 Hrs): Intake and Output Totals x24h 04/18/18 04/19/18 04/20/18 23:59 23:59 23:59 Intake Total 1900 570 Output Total 400 500 Balance 1500 70 General: Alert, Oriented x3 HEENT: Mucous membr. moist/pink, Other (Pale) Neck: Other (Trach) Neuro: Alert, Non Focal Cardiovascular: Regular rate, No murmurs Respiratory: No respiratory distress, Other (No wheezes) Abdomen: Other (Non-tender, hypertympanic, hyperactive bowel sounds.) Extremities: No edema - Results Results: Laboratory Results WBC 10.1 x10^3/uL (4.8-10.8) 04/20/18 06:25 RBC 3.76 10^6/uL (4.70-6.10) L 04/20/18 06:25 Hgb 10.6 g/dL (14.0-18.0) L 04/20/18 06:25 Hct 31.5 % (42.0-52.0) L 04/20/18 06:25 MCV 83.8 fL (80.0-94.0) 04/20/18 06:25 MCH 28.2 pg (27.0-31.0) 04/20/18 06:25 MCHC 33.6 g/dL (32.0-36.0) 04/20/18 06:25 RDW 17.3 % (12.0-15.0) H 04/20/18 06:25 Plt Count 346 10^3/uL (130-450) 04/20/18 06:25 MPV 7.1 fL (7.4-11.4) L 04/20/18 06:25 Neut # (Auto) 8.9 10^3/uL (1.5-6.6) H 04/20/18 06:25 Lymph # (Auto) 0.6 10^3/uL (1.5-3.5) L 04/20/18 06:25 [place] # (Auto) 0.6 10^3/uL (0.0-1.0) 04/20/18 06:25 Eos # (Auto) 0.0 10^3/uL (0.0-0.7) 04/20/18 06:25 Baso # (Auto) 0.1 10^3/uL (0.0-0.1) 04/20/18 06:25 Absolute Nucleated RBC 0.00 x10^3/uL 04/20/18 06:25 Nucleated RBC % 0.0 /100WBC 04/20/18 06:25 PT 15.8 secs (9.9-12.6) H 04/19/18 12:27 INR 1.4 (0.8-1.2) H 04/19/18 12:27 VBG pH 7.376 (7.31-7.41) 04/19/18 13:40 Ionized Calcium 0.66 mmol/L (1.15-1.33) L* 04/19/18 13:40 Sodium 136 mmol/L (135-145) 04/20/18 06:25 Potassium 3.8 mmol/L (3.5-5.0) 04/20/18 06:25 Chloride 100 mmol/L (101-111) L 04/20/18 06:25 Carbon Dioxide 23 mmol/L (21-32) 04/20/18 06:25 Anion Gap 13.0 (6-13) 04/20/18 06:25 BUN 33 mg/dL (6-20) H 04/20/18 06:25 Creatinine 1.7 mg/dL (0.6-1.2) H 04/20/18 06:25 Estimated GFR (MDRD) 40 (>89) L 04/20/18 06:25 Glucose 193 mg/dL (70-100) H 04/20/18 06:25 Glycated Hemoglobin 7.5 % (4.6-6.2) H 04/20/18 06:25 Estim Average Glucose 169 (70-100) H 04/20/18 06:25 Lactic Acid 1.7 mmol/L (0.5-2.2) 04/19/18 13:00 Calcium 5.6 mg/dL (8.5-10.3) L* 04/20/18 06:25 Total Bilirubin 0.7 mg/dL (0.2-1.0) 04/19/18 12:40 AST 23 IU/L (10-42) 04/19/18 12:40 ALT 18 IU/L (10-60) 04/19/18 12:40 Alkaline Phosphatase 84 IU/L (42-121) 04/19/18 12:40 Total Creatine Kinase 252 IU/L (22-269) 04/19/18 12:40 CK-MB (CK-2) 5.7 ng/mL (0.6-6.3) 04/19/18 12:40 Troponin I < 0.04 ng/mL (<0.49) 04/19/18 12:40 B-Natriuretic Peptide 56 pg/mL (5-100) 04/19/18 13:00 Total Protein 8.1 g/dL (6.7-8.2) 04/19/18 12:40 Albumin 3.7 g/dL (3.2-5.5) 04/19/18 12:40 Globulin 4.4 g/dL (2.1-4.2) H 04/19/18 12:40 Albumin/Globulin Ratio 0.8 (1.0-2.2) L 04/19/18 12:40 Lipase 24 U/L (22-51) 04/19/18 12:40 - Procedures Procedures: Procedures CATARAC PHACOEMULS/ASPIR (03/13/13) [facility] (03/13/13)
[2018-04-20] MEDS ORDERED: FUROSEMIDE 40 MG TABLET PO SCH (09:00)
[2018-04-20] MEDS ORDERED: LOSARTAN 50 MG TABLET PO SCH (09:00)
[2018-04-20 09:20] LABS: INR 1.3 (0.8-1.2)
[2018-04-20] MEDS: FERROUS SULFATE 325 MG TABLET PO SCH (09:22)
[2018-04-20] MEDS: LOSARTAN 50 MG TABLET PO SCH (09:22)
[2018-04-20] MEDS: CALCIUM CARBONATE CHEW 500 MG TABLET PO SCH ×3 (09:25→22:24)
[2018-04-20] MEDS: MAGNESIUM OXIDE 400 MG TABLET PO SCH (11:39)
[2018-04-20] MEDS: MAGNESIUM SULFATE 2 GRAM 2 GM/50 ML BAG IV SCH ×2 (11:39→12:46)
[2018-04-20] MEDS: WARFARIN 5 MG TABLET PO SCH (13:51)
[2018-04-20] MEDS: levoFLOXacin 750 MG/150 ML 750 MG/150 ML BAG IV SCH (16:16)
[2018-04-20] MEDS ORDERED: WARFARIN 5 MG TABLET PO SCH (21:00)
[2018-04-21] MEDS: SODIUM CHLORIDE 0.9% 1,000 ML IV SCH ×4 (01:08→23:40)
[2018-04-21] MEDS: SODIUM CHLORIDE FLUSH 0.9% 10 ML SYRINGE IVP SCH ×4 (01:09→23:42)
[2018-04-21] MEDS: BUDESONIDE 0.5 MG/2 ML NEB INH SCH ×2 (05:28→17:56)
[2018-04-21] MEDS: IPRATROPIUM 0.2 MG/ML NEB INH SCH ×4 (05:28→17:56)
[2018-04-21] MEDS: FORMOTEROL FUMARATE NEB 20 MCG/2 ML INH SCH ×2 (05:28→17:56)
[2018-04-21 05:51] LABS: BASOPHILS # (AUTO) 0.1 10^3/uL (0.0-0.1); BASOPHILS % (AUTO) 0.8 %; EOSINOPHILS # (AUTO) 0.1 10^3/uL (0.0-0.7); EOSINOPHILS % (AUTO) 1.2 %; HGB - HEMOGLOBIN 10.5 g/dL (14.0-18.0); LYMPHOCYTES # (AUTO) 1.4 10^3/uL (1.5-3.5); LYMPHOCYTES % (AUTO) 11.8 %; MEAN CORPUSCULAR HGB CONC 32.9 g/dL (32.0-36.0); MEAN CORPUSCULAR VOLUME 85.2 fL (80.0-94.0); MEAN PLATELET VOLUME 7.2 fL (7.4-11.4); MONOCYTES # (AUTO) 0.7 10^3/uL (0.0-1.0); NEUTROPHILS # (AUTO) 9.4 10^3/uL (1.5-6.6); NEUTROPHILS % (AUTO) 80.2 %; PLT - PLATELET COUNT 343 10^3/uL (130-450); RED BLOOD COUNT 3.73 10^6/uL (4.70-6.10); RED CELL DISTRIBUTION WIDTH 16.8 % (12.0-15.0); WHITE BLOOD COUNT 11.7 x10^3/uL (4.8-10.8)
[2018-04-21 05:52] LABS: INR 1.5 (0.8-1.2); PT - PROTHROMBIN TIME 16.7 secs (9.9-12.6)
[2018-04-21] MEDS: CEFEPIME 1 GM in SODIUM CHLORIDE 0.9% MINIBAG 100 ML IV SCH ×2 (05:58→18:11)
[2018-04-21] MEDS: CALCIUM CARBONATE CHEW 500 MG TABLET PO SCH ×3 (05:58→21:40)
[2018-04-21 06:00] LABS: CREATININE 1.4 mg/dL (0.6-1.2); MAGNESIUM 1.7 mg/dL (1.7-2.8)
[2018-04-21 06:01] LABS: CALCIUM 6.2 mg/dL (8.5-10.3)
[2018-04-21] MEDS: glipiZIDE 5 MG TABLET PO SCH ×2 (07:31→16:37)
--- NOTE | 2018-04-21 07:47 | PROVIDER PROGRESS NOTE ---
Subjective - Prog Note Date Prog Note Date: 04/21/18 Prog Note Time: 07:46 - Subjective Subjective: He says he gets frequent bouts of decompensation of his COPD. This is not his worst one. But he still not back to baseline. He can walk approximately 20 feet before he has to stop. He does not use a cane or a walker at home. But he does acknowledge over the years of just getting weaker and less and less mobile. Even driving has become more more difficult because he is to be able to park to the front of a store and be able to get inside. He does not take oxygen at home. He is still short of breath above baseline. And legs feel rubbery underneath him and unsteady. Current Medications - Current Medications Current Medications: Active Medications Acetaminophen (Tylenol) 650 mg PO Q4HR PRN PRN Reason: Pain or Fever > 38C (100.4F) Budesonide (Pulmicort) 0.5 mg INH RTBID [facility] Last Admin: 04/21/18 05:28 Dose: 0.5 mg Calcium Carbonate/Glycine (Tums) 500 mg PO TID [facility] Last Admin: 04/21/18 05:58 Dose: 500 mg Famotidine (Pepcid) 20 mg PO DAILY [facility] Last Admin: 04/20/18 08:17 Dose: 20 mg Ferrous Sulfate (Feosol) 325 mg PO DAILY [facility] Last Admin: 04/20/18 09:22 Dose: 325 mg Formoterol Fumarate (Perforomist) 20 mcg INH RTBID [facility] Last Admin: 04/21/18 05:28 Dose: 20 mcg Glipizide (Glucotrol) 20 mg PO BIDAC [facility] Last Admin: 04/21/18 07:31 Dose: Not Given Sodium Chloride (Normal Saline 0.9%) 1,000 mls @ 100 mls/hr IV .Q10H [facility] Last Admin: 04/21/18 01:08 Dose: 100 mls/hr Cefepime HCl 1 gm/ Sodium (Chloride) 100 mls @ 200 mls/hr IV Q12H [facility] Last Admin: 04/21/18 05:58 Dose: 200 mls/hr Levofloxacin (Levaquin 750 Mg/150 Ml) 750 mg in 150 mls @ 100 mls/hr IV Q24H [facility] Last Infusion: 04/20/18 18:09 Dose: Infused Calcium Gluconate 1,000 mg/ (Sodium Chloride) 60 mls @ 240 mls/hr IV ONCE ONE Stop: 04/21/18 07:57 Insulin Aspart (Novolog) 1 - 9 unit SUBQ 0800,1200,1700,2100 [facility]; Protocol Last Admin: 04/20/18 22:24 Dose: Not Given Ipratropium [place] (Atrovent) 0.5 mg INH RTQID [facility] Last Admin: 04/21/18 05:28 Dose: 0.5 mg Levalbuterol HCl (Xopenex) 1.25 mg INH RTQID PRN PRN Reason: Wheezing Last Admin: 04/20/18 15:22 Dose: 1.25 mg Losartan Potassium (Cozaar) 50 mg PO DAILY [facility] Last Admin: 04/20/18 09:22 Dose: 50 mg Magnesium Oxide (Mag Ox) 400 mg PO DAILYWM [facility] Last Admin: 04/20/18 11:39 Dose: 400 mg Metoprolol Succinate (Toprol Xl) 100 mg PO DAILY [facility] Last Admin: 04/20/18 08:16 Dose: 100 mg Polyethylene Glycol (Miralax) 17 gm PO DAILY [facility] Last Admin: 04/20/18 08:17 Dose: Not Given Potassium Chloride () 40 meq PO ONCE ONE Stop: 04/21/18 08:01 Sitagliptin Phosphate (Januvia) 100 mg PO DAILY [facility] Last Admin: 04/20/18 08:16 Dose: 100 mg Sodium Chloride (Normal Saline Flush 0.9%) 10 ml IVP PRN PRN PRN Reason: NEEDED PER PROVIDER ORDERS Sodium Chloride (Normal Saline Flush 0.9%) 10 ml IVP 0100,0900,1700 [facility] Last Admin: 04/21/18 01:09 Dose: Not Given Tamsulosin HCl (Flomax) 0.4 mg PO DAILY [facility] Last Admin: 04/20/18 08:17 Dose: 0.4 mg Trazodone HCl (Desyrel) 50 mg PO QPM PRN PRN Reason: Insomnia Warfarin Sodium (Coumadin) 10 mg PO 1400 [facility] Last Admin: 04/20/18 13:51 Dose: 10 mg Trazodone HCl 100 mg PO QPM PRN 10/15/12 glipiZIDE [Glucotrol] 20 mg PO BIDAC 10/15/12 Omeprazole [PriLOSEC] 20 mg PO QDAC 04/29/13 SITagliptin [Januvia] 100 mg PO DAILY 02/14/17 Tamsulosin [Flomax] 0.4 mg PO DAILY 02/14/17 Warfarin Sodium 7.5 mg PO SUTUTHSA 02/14/17 Warfarin Sodium [Coumadin] 10 mg PO MOWEFR 02/14/17 Albuterol Sulfate [Proair Hfa Inhaler] 2 puffs INH Q4H PRN 04/05/17 Ipratropium/Albuterol [Duoneb] 3 ml INH QID 04/05/17 Amiodarone [Pacerone] 200 mg PO DAILY 04/19/18 B6/Levomefolate/B12/Ala/If [Abatrex with Ala Tablet] 1 tab PO BID 04/19/18 Ferrous Sulfate 325 mg PO DAILY 04/19/18 Fluticasone/Salmeterol [Advair Hfa 230-21 Mcg Inhaler] 2 puffs INH BID 04/19/18 Furosemide [Lasix] 40 mg PO BID 04/19/18 Losartan [Cozaar] 50 mg PO DAILY 04/19/18 Metformin HCl 1,000 mg PO BID 04/19/18 Metoprolol Succinate 100 mg PO DAILY 04/19/18 Potassium Chloride 10 meq PO DAILY 04/19/18 Objective - Vital Signs/Intake & Output Reviewed Vital Signs: Yes Vital Signs: Vital Signs x48h Temp Pulse Pulse Resp BP Pulse Ox 04/21/18 07:24 36.5 C 64 20 93/55 L 94 04/21/18 05:48 36.5 C 60 18 121/65 93 04/21/18 05:28 58 L 18 04/20/18 23:58 36.6 C 65 22 100/52 L 96 Intake & Output: Intake & Output 04/18/18 04/19/18 04/20/18 04/21/18 23:59 23:59 23:59 23:59 Intake Total 1900 4100 960 Output Total 400 2175 1450 Balance 1500 1925 -490 - Objective General Appearance: positive: No acute distress, Alert, Other (Sitting up in chair, covered in blankets, plugs up his trach to speak to me. Has just finished eating breakfast) Eyes Bilateral: positive: PERRL, EOMI Neck: positive: Other (Trach in place.). negative: Stiff neck, Carotid bruit Respiratory: positive: Chest non-tender, No respiratory distress, Wheezes, Rhonchi, Other (Coughs twice during my exam and turned red in the face of the plugs is straight to do so). negative: Rales Cardiovascular: positive: Regular rate & rhythm. negative: Gallop/S4, Friction rub Abdomen: positive: Non-tender, No organomegaly, Nml bowel sounds, No distention Skin: positive: Warm, Dry Extremities: positive: Full ROM, No pedal edema Neurologic/Psychiatric: positive: Oriented x3, CN's nml (2-12), Motor nml, Weakness (generalized) - Lab Results Fish Bones: 04/21/18 05:20 04/21/18 05:20 Other Labs: Lab Results x24hrs 04/21/18 04/21/18 04/21/18 Range/Units 05:20 05:20 05:20 WBC 11.7 H (4.8-10.8) x10^3/uL RBC 3.73 L (4.70-6.10) 10^6/uL Hgb 10.5 L (14.0-18.0) g/dL Hct 31.8 L (42.0-52.0) % MCV 85.2 (80.0-94.0) fL MCH 28.0 (27.0-31.0) pg MCHC 32.9 (32.0-36.0) g/dL RDW 16.8 H (12.0-15.0) % Plt Count 343 (130-450) 10^3/uL MPV 7.2 L (7.4-11.4) fL Neut # (Auto) 9.4 H (1.5-6.6) 10^3/uL Lymph # (Auto) 1.4 L (1.5-3.5) 10^3/uL [place] # (Auto) 0.7 (0.0-1.0) 10^3/uL Eos # (Auto) 0.1 (0.0-0.7) 10^3/uL Baso # (Auto) 0.1 (0.0-0.1) 10^3/uL Absolute Nucleated RBC 0.00 x10^3/uL Nucleated RBC % 0.0 /100WBC PT 16.7 H (9.9-12.6) secs INR 1.5 H (0.8-1.2) Sodium 138 (135-145) mmol/L Potassium 3.4 L (3.5-5.0) mmol/L Chloride 105 (101-111) mmol/L Carbon Dioxide 24 (21-32) mmol/L Anion Gap 9.0 (6-13) BUN 28 H (6-20) mg/dL Creatinine 1.4 H (0.6-1.2) mg/dL Estimated GFR (MDRD) 50 L (>89) Glucose 68 L (70-100) mg/dL Calcium 6.2 L* (8.5-10.3) mg/dL Magnesium 1.7 (1.7-2.8) mg/dL PTH Intact (12-88) pg/mL 04/20/18 04/20/18 04/20/18 Range/Units 09:01 09:01 09:01 WBC (4.8-10.8) x10^3/uL RBC (4.70-6.10) 10^6/uL Hgb (14.0-18.0) g/dL Hct (42.0-52.0) % MCV (80.0-94.0) fL MCH (27.0-31.0) pg MCHC (32.0-36.0) g/dL RDW (12.0-15.0) % Plt Count (130-450) 10^3/uL MPV (7.4-11.4) fL Neut # (Auto) (1.5-6.6) 10^3/uL Lymph # (Auto) (1.5-3.5) 10^3/uL [place] # (Auto) (0.0-1.0) 10^3/uL Eos # (Auto) (0.0-0.7) 10^3/uL Baso # (Auto) (0.0-0.1) 10^3/uL Absolute Nucleated RBC x10^3/uL Nucleated RBC % /100WBC PT 15.0 H (9.9-12.6) secs INR 1.3 H (0.8-1.2) Sodium (135-145) mmol/L Potassium (3.5-5.0) mmol/L Chloride (101-111) mmol/L Carbon Dioxide (21-32) mmol/L Anion Gap (6-13) BUN (6-20) mg/dL Creatinine (0.6-1.2) mg/dL Estimated GFR (MDRD) (>89) Glucose (70-100) mg/dL Calcium (8.5-10.3) mg/dL Magnesium 0.6 L* (1.7-2.8) mg/dL PTH Intact 48 (12-88) pg/mL ABX Reporting Has patient been on IV antibiotics over the past 48 hours?: Yes Assessment/Plan - Problem List (1) CAP (community acquired pneumonia) Impression: He presented his cough, shortness of breath, wheezing. Cough is productive of phlegm. Started 3 days before admission. He became so weak that he had near syncope while walking on the day of admission. And then he fell. On chest x- ray he had a left basilar infiltrate with a small pleural effusion. He was dehydrated with prerenal azotemia above his baseline. He also had marked hypocalcemia. Yesterday he was still having quite a bit of chills. But no fever. Blood cultures neg to date. Sputum gram stain showed mixed organisms including fungi/yeast. Continue empiric iv antibiotics: Cefipime and Levaquin. A 7-10 day total course is planned. DAy #2 (2) COPD exacerbation Assessment/Plan: Much improved with nebs, Mucinex and supplemental oxygen. He did not need iv steroids. He is still wheezing, rhonchi.He is still fairly weak. Plan: Add IV steroids and watch glucose carefully Physical therapy order (3) RUSLAN (acute kidney injury) Assessment/Plan: His baseline BUN and creatinine is 11 and 0.9. Creat 1.4 >2.3 >1.7 >1.4 today Improved BUN/creat with stopping his home Lasix, iv meds and fluids. Monitor BMP daily. (4) Hypocalcemia Assessment/Plan: Ca level was even lower yesterday 5.6 > 6.2 today started TUMS tid. Give 1 amp calcium gluconate over 15 minutes. This may be contributing to his weakness as well Mag level also severely low, making urinary loss possible. 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 (5) Hypomagnesemia and hypokalemia Assessment/Plan: Will replace with iv riders and start po daily Mag. Will check for Hypomagnesemia-Hypercalciuria syndrome by checking urine trace element levels. Panel sent but pending results K is being supplemented. (6) Chronic systolic CHF (congestive heart failure), NYHA class 3 Assessment/Plan: Echo (2D limited done, to recheck the LVEF) did show a small decline in EF. The BNP was 59, indicating no volume overload or CHF exacerbation currently, which is consistent with his pre-renal azotemia and clinical dehydration. His Lasix is currently on hold, therefore. Not on maintenance IVF but will start low dose since BP low. Continue Metoprolol and Losartan. (7) Hypertension Qualifiers: Assessment/Plan: so far not a problem, his blood presure has been low. This am 93-104 systolci. BP controlled on B-mehran and Losartan, in fact he is a bit low due to dehydration. Lasix is on hold. (8) DM type 2 (diabetes mellitus, type 2) Assessment/Plan: A1c is 6.5, indicating good DM control. Continue his oral agents and carb-control diet. The Insulin is there if needed. Yesterday glucose was 181-10, 165, 176. This a.m. he is 91, 179, 246
[2018-04-21] MEDS ORDERED: POTASSIUM CHLORIDE 20 MEQ/15 ML UDC PO ONE (08:00)
[2018-04-21] MEDS: INSULIN ASPART 300 UNIT/3 ML PEN SUBQ SCH ×4 (08:57→21:19)
[2018-04-21] MEDS: METOPROLOL SUCCINATE 50 MG TABLET PO SCH (08:59)
[2018-04-21] MEDS ORDERED: CALCIUM GLUCONATE 1,000 MG in SODIUM CHLORIDE 0.9% 50 ML IV ONE (09:00)
[2018-04-21] MEDS: MAGNESIUM OXIDE 400 MG TABLET PO SCH (09:02)
[2018-04-21] MEDS: FAMOTIDINE 20 MG TABLET PO SCH (09:02)
[2018-04-21] MEDS: TAMSULOSIN 0.4 MG CAPSULE PO SCH (09:02)
[2018-04-21] MEDS: LOSARTAN 50 MG TABLET PO SCH (09:03)
[2018-04-21] MEDS: FERROUS SULFATE 325 MG TABLET PO SCH (09:05)
[2018-04-21] MEDS: POLYETHYLENE GLYCOL 3350 17 GM PACKET PO SCH (09:07)
[2018-04-21] MEDS: LEVALBUTEROL 1.25 MG/3 ML NEB INH PRN ×2 (10:28→15:13)
[2018-04-21] MEDS: WARFARIN 5 MG TABLET PO SCH (13:10)
[2018-04-21] MEDS ORDERED: levoFLOXacin 750 MG/150 ML 750 MG/150 ML BAG IV SCH (16:00)
[2018-04-21] MEDS: levoFLOXacin 750 MG/150 ML 750 MG/150 ML BAG IV SCH (16:17)
[2018-04-21] MEDS ORDERED: SODIUM CHLORIDE FLUSH 0.9% 10 ML SYRINGE ONE (18:08)
[2018-04-21] MEDS: methylPREDNISolone SUCCINATE 40 MG/ML VIAL IVP SCH (21:40)
[2018-04-22] MEDS: LEVALBUTEROL 1.25 MG/3 ML NEB INH PRN ×2 (04:29→15:17)
[2018-04-22] MEDS: CALCIUM CARBONATE CHEW 500 MG TABLET PO SCH ×3 (05:16→22:00)
[2018-04-22] MEDS: methylPREDNISolone SUCCINATE 40 MG/ML VIAL IVP SCH ×2 (05:16→13:44)
[2018-04-22] MEDS: CEFEPIME 1 GM in SODIUM CHLORIDE 0.9% MINIBAG 100 ML IV SCH (05:17)
[2018-04-22 06:36] LABS: BASOPHILS % (AUTO) 0.3 %; EOSINOPHILS % (AUTO) 0.1 %; HGB - HEMOGLOBIN 10.6 g/dL (14.0-18.0); LYMPHOCYTES # (AUTO) 0.3 10^3/uL (1.5-3.5); LYMPHOCYTES % (AUTO) 4.5 %; MEAN CORPUSCULAR HGB CONC 32.5 g/dL (32.0-36.0); MEAN CORPUSCULAR VOLUME 86.1 fL (80.0-94.0); MEAN PLATELET VOLUME 6.9 fL (7.4-11.4); MONOCYTES # (AUTO) 0.2 10^3/uL (0.0-1.0); MONOCYTES % (AUTO) 2.7 %; NEUTROPHILS # (AUTO) 7.1 10^3/uL (1.5-6.6); NEUTROPHILS % (AUTO) 92.4 %; PLT - PLATELET COUNT 321 10^3/uL (130-450); RED BLOOD COUNT 3.78 10^6/uL (4.70-6.10); RED CELL DISTRIBUTION WIDTH 17.3 % (12.0-15.0); WHITE BLOOD COUNT 7.7 x10^3/uL (4.8-10.8)
[2018-04-22 06:42] LABS: INR 2.1 (0.8-1.2); PT - PROTHROMBIN TIME 23.4 secs (9.9-12.6)
[2018-04-22 06:46] LABS: CALCIUM 6.9 mg/dL (8.5-10.3); CREATININE 1.1 mg/dL (0.6-1.2); MAGNESIUM 1.5 mg/dL (1.7-2.8)
[2018-04-22] MEDS: glipiZIDE 5 MG TABLET PO SCH ×2 (06:59→17:00)
[2018-04-22] MEDS ORDERED: MAGNESIUM SULFATE 2 GRAM 2 GM/50 ML BAG IV ONE (07:48)
[2018-04-22] MEDS: BUDESONIDE 0.5 MG/2 ML NEB INH SCH ×2 (07:53→19:50)
[2018-04-22] MEDS: IPRATROPIUM 0.2 MG/ML NEB INH SCH ×4 (07:53→19:48)
[2018-04-22] MEDS: FORMOTEROL FUMARATE NEB 20 MCG/2 ML INH SCH ×2 (07:53→19:48)
--- NOTE | 2018-04-22 07:54 | PROVIDER PROGRESS NOTE ---
Subjective - Prog Note Date Prog Note Date: 04/22/18 Prog Note Time: 12:14 - Subjective Pt reports feeling: Improved Subjective: But he is easily fatigued. Tired. He says just standing up to go to the bathroom wipes him out. He assures me that he has not slept in his bed at all. He sleeps upright in the chair here in the hospital, or leans back as a recliner. He cannot lay on his right side because it makes him very short of breath. He cannot lay flat because he gets very short of breath. And if he lays on his left side his left hip is killing him. He now reluctantly shares that the ambulation in that left hip is gotten so bad that he really is not driving anymore unless is to go get food. Again, breakfast is at [facility] and late lunch early dinner is at [facility] on a daily basis. Shortness of breath is about the same as yesterday. Still has frequent episodes of coughing if he tries to speak too much. No fever, no chills. No abdominal pain. The edema in his legs is the same as always, and he is plagued by constant foot cramps and calf cramps. He asked of his potassium level is okay. Current Medications - Current Medications Current Medications: Active Medications Acetaminophen (Tylenol) 650 mg PO Q4HR PRN PRN Reason: Pain or Fever > 38C (100.4F) Budesonide (Pulmicort) 0.5 mg INH RTBID [facility] Last Admin: 04/22/18 07:53 Dose: 0.5 mg Calcium Carbonate/Glycine (Tums) 500 mg PO TID [facility] Last Admin: 04/22/18 05:16 Dose: 500 mg Famotidine (Pepcid) 20 mg PO DAILY [facility] Last Admin: 04/21/18 09:02 Dose: 20 mg Ferrous Sulfate (Feosol) 325 mg PO DAILY [facility] Last Admin: 04/21/18 09:05 Dose: 325 mg Formoterol Fumarate (Perforomist) 20 mcg INH RTBID [facility] Last Admin: 04/22/18 07:53 Dose: 20 mcg Glipizide (Glucotrol) 20 mg PO BIDAC [facility] Last Admin: 04/22/18 06:59 Dose: 20 mg Sodium Chloride (Normal Saline 0.9%) 1,000 mls @ 100 mls/hr IV .Q10H [facility] Last Admin: 04/21/18 23:40 Dose: 100 mls/hr Calcium Gluconate 1,000 mg/ (Sodium Chloride) 60 mls @ 240 mls/hr IV ONCE ONE Stop: 04/22/18 08:02 Magnesium Sulfate (Magnesium Sulfate) 2 gm in 50 mls @ 50 mls/hr IV ONCE ONE Stop: 04/22/18 08:47 Insulin Aspart (Novolog) 1 - 9 unit SUBQ 0800,1200,1700,2100 [facility]; Protocol Last Admin: 04/21/18 21:19 Dose: Not Given Ipratropium [place] (Atrovent) 0.5 mg INH RTQID [facility] Last Admin: 04/22/18 07:53 Dose: 0.5 mg Levalbuterol HCl (Xopenex) 1.25 mg INH RTQID PRN PRN Reason: Wheezing Last Admin: 04/22/18 04:29 Dose: 1.25 mg Levofloxacin (Levaquin) 750 mg PO DAILY [facility] Losartan Potassium (Cozaar) 50 mg PO DAILY [facility] Last Admin: 04/21/18 09:03 Dose: 50 mg Magnesium Oxide (Mag Ox) 400 mg PO DAILYWM [facility] Last Admin: 04/21/18 09:02 Dose: 400 mg Methylprednisolone (Solu-Medrol (40mg Vial)) 40 mg IVP TID [facility] Stop: 04/22/18 14:01 Last Admin: 04/22/18 05:16 Dose: 40 mg Metoprolol Succinate (Toprol Xl) 100 mg PO DAILY [facility] Last Admin: 04/21/18 08:59 Dose: 100 mg Polyethylene Glycol (Miralax) 17 gm PO DAILY [facility] Last Admin: 04/21/18 09:07 Dose: Not Given Sitagliptin Phosphate (Januvia) 100 mg PO DAILY [facility] Last Admin: 04/21/18 08:58 Dose: 100 mg Sodium Chloride (Normal Saline Flush 0.9%) 10 ml IVP PRN PRN PRN Reason: NEEDED PER PROVIDER ORDERS Last Admin: 04/21/18 21:40 Dose: 10 ml Sodium Chloride (Normal Saline Flush 0.9%) 10 ml IVP 0100,0900,1700 [facility] Last Admin: 04/21/18 23:42 Dose: Not Given Tamsulosin HCl (Flomax) 0.4 mg PO DAILY [facility] Last Admin: 04/21/18 09:02 Dose: 0.4 mg Trazodone HCl (Desyrel) 50 mg PO QPM PRN PRN Reason: Insomnia Last Admin: 04/22/18 00:52 Dose: 50 mg Warfarin Sodium (Coumadin) 10 mg PO 1400 [facility] Last Admin: 04/21/18 13:10 Dose: 10 mg Trazodone HCl 100 mg PO QPM PRN 10/15/12 glipiZIDE [Glucotrol] 20 mg PO BIDAC 10/15/12 Omeprazole [PriLOSEC] 20 mg PO QDAC 04/29/13 SITagliptin [Januvia] 100 mg PO DAILY 02/14/17 Tamsulosin [Flomax] 0.4 mg PO DAILY 02/14/17 Warfarin Sodium 7.5 mg PO SUTUTHSA 02/14/17 Warfarin Sodium [Coumadin] 10 mg PO MOWEFR 02/14/17 Albuterol Sulfate [Proair Hfa Inhaler] 2 puffs INH Q4H PRN 04/05/17 Ipratropium/Albuterol [Duoneb] 3 ml INH QID 04/05/17 Amiodarone [Pacerone] 200 mg PO DAILY 04/19/18 B6/Levomefolate/B12/Ala/If [Abatrex with Ala Tablet] 1 tab PO BID 04/19/18 Ferrous Sulfate 325 mg PO DAILY 04/19/18 Fluticasone/Salmeterol [Advair Hfa 230-21 Mcg Inhaler] 2 puffs INH BID 04/19/18 Furosemide [Lasix] 40 mg PO BID 04/19/18 Losartan [Cozaar] 50 mg PO DAILY 04/19/18 Metformin HCl 1,000 mg PO BID 04/19/18 Metoprolol Succinate 100 mg PO DAILY 04/19/18 Potassium Chloride 10 meq PO DAILY 04/19/18 Objective - Vital Signs/Intake & Output Reviewed Vital Signs: Yes Vital Signs: Vital Signs x48h Temp Pulse Pulse Resp BP Pulse Ox 04/22/18 05:13 36.4 C L 59 L 19 142/73 H 97 04/22/18 04:30 65 20 Intake & Output: Intake & Output 04/19/18 04/20/18 04/21/18 04/22/18 23:59 23:59 23:59 23:59 Intake Total 1900 4100 5261.667 100 Output Total 400 2175 1850 600 Balance 1500 1925 3411.667 -500 - Objective General Appearance: positive: No acute distress, Alert, Other (Sitting upright in the chair. Watching TV. Wearing his glasses.) Eyes Bilateral: positive: PERRL, EOMI ENT: positive: Other (Tracheostomy tube in place. He plugs it up to speak. During our one hour conversation he has 3 or 4 episodes of coughing. When he gets very worked up he starts getting tachypneic and coughing more) Neck: negative: No JVD, Stiff neck, Carotid bruit Respiratory: positive: Chest non-tender, No respiratory distress, Wheezes (right mid lung, scant), Rhonchi (as u listened anteriorly and that's from trach), Other (prolonged end exhalation) Cardiovascular: positive: Regular rate & rhythm, Systolic murmur. negative: Gallop/S4, Friction rub Abdomen: positive: Non-tender, No organomegaly, Nml bowel sounds, No distention Skin: positive: Warm, Dry, Pallor Extremities: positive: Non-tender, Full ROM, Pedal edema, Other (nail beds pail, clubbing starting to appear) Neurologic/Psychiatric: positive: Oriented x3, CN's nml (2-12), Motor nml, Weakness - Lab Results Fish Bones: 04/22/18 06:25 04/22/18 06:25 Other Labs: Lab Results x24hrs 04/22/18 04/22/18 04/22/18 Range/Units 06:25 06:25 06:25 WBC 7.7 (4.8-10.8) x10^3/uL RBC 3.78 L (4.70-6.10) 10^6/uL Hgb 10.6 L (14.0-18.0) g/dL Hct 32.5 L (42.0-52.0) % MCV 86.1 (80.0-94.0) fL MCH 28.0 (27.0-31.0) pg MCHC 32.5 (32.0-36.0) g/dL RDW 17.3 H (12.0-15.0) % Plt Count 321 (130-450) 10^3/uL MPV 6.9 L (7.4-11.4) fL Neut # (Auto) 7.1 H (1.5-6.6) 10^3/uL Lymph # (Auto) 0.3 L (1.5-3.5) 10^3/uL [place] # (Auto) 0.2 (0.0-1.0) 10^3/uL Eos # (Auto) 0.0 (0.0-0.7) 10^3/uL Baso # (Auto) 0.0 (0.0-0.1) 10^3/uL Absolute Nucleated RBC 0.00 x10^3/uL Nucleated RBC % 0.0 /100WBC PT 23.4 H (9.9-12.6) secs INR 2.1 H (0.8-1.2) Sodium 135 (135-145) mmol/L Potassium 4.6 (3.5-5.0) mmol/L Chloride 104 (101-111) mmol/L Carbon Dioxide 26 (21-32) mmol/L Anion Gap 5.0 L (6-13) BUN 20 (6-20) mg/dL Creatinine 1.1 (0.6-1.2) mg/dL Estimated GFR (MDRD) 66 L (>89) Glucose 219 H (70-100) mg/dL Calcium 6.9 L (8.5-10.3) mg/dL Magnesium 1.5 L (1.7-2.8) mg/dL ABX Reporting Has patient been on IV antibiotics over the past 48 hours?: Yes Assessment/Plan - Problem List (1) CAP (community acquired pneumonia) Impression: He presented his cough, shortness of breath, wheezing. Cough is productive of phlegm. Started 3 days before admission. He became so weak that he had near syncope while walking on the day of admission. And then he fell. On chest x- ray he had a left basilar infiltrate with a small pleural effusion. He was dehydrated with prerenal azotemia above his baseline. He also had marked hypocalcemia. 04/20 he was still having quite a bit of chills. But no fever. Blood cultures neg to date. Sputum gram stain showed mixed organisms including fungi/yeast. Final identification is Proteus. Sensitive to both the cefepime and the Levaquin he is on. Change antibiotics: Cefipime and Levaquin are day # 2 yesterday. Will change to po levaquin 750 mg for Levaquin Day #3. A 7-10 day total course is planned. Watch for fever or worsening symptoms overnight. (2) COPD exacerbation Assessment/Plan: Much improved with nebs, Mucinex and supplemental oxygen. He did not need iv steroids. He is still wheezing but overall better, rhonchi still there.He is still fairly weak. Plan: I added IV steroids 12/ and am watching glucose carefully. Will only give 3 doses. WBC down. Glucose up to 200's this am. Physical therapy order (3) RUSLAN (acute kidney injury) Assessment/Plan: His baseline BUN and creatinine is 11 and 0.9. Creat 1.4 >2.3 >1.7 >1.4 > 1.1 today Improved BUN/creat with stopping his home Lasix, iv meds and fluids. Monitor BMP daily. (4) Hypocalcemia Assessment/Plan: Ca level has been lower even with treatment. Today came up but still low. 5.6 > 6.2> 6.9 today started TUMS tid. Give 1 amp calcium gluconate over 15 minutes again. This may be contributing to his weakness as well Mag level also severely low, making urinary loss possible. 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 (5) Hypomagnesemia and hypokalemia Assessment/Plan: Will replace with IV riders and started on po daily Mag as well. Will check for Hypomagnesemia-Hypercalciuria syndrome by checking urine trace element levels. Panel sent but pending results K is being supplemented as well. Start Vitamin D. (6) Chronic systolic CHF (congestive heart failure), NYHA class 3 Assessment/Plan: Echo (2D limited done, to recheck the LVEF) did show a small decline in EF. The BNP was 59, indicating no volume overload or CHF exacerbation currently, which is consistent with his pre-renal azotemia and clinical dehydration. I/0 are (+)[id number] as of this am. Bun/creat are nml. His Lasix has been on hold. Not on maintenance IVF but will start low dose since BP low. BP now up to 140's. Resume lasix in am. He is eating a drinking well. He is usually on 40 mg po bid. Will start at 20 mg po bid. Continue Metoprolol and Losartan. (7) Hypertension Qualifiers: Assessment/Plan: so far not a problem, his blood presure had been low. 12/2 am 93-104 systolic. BP controlled on B-mehran and Losartan, in fact he is a bit low due to dehydration. Lasix is on hold. Today BP up but stable. (8) DM type 2 (diabetes mellitus, type 2) Assessment/Plan: A1c is 6.5, indicating good DM control. Continue his oral agents and carb-control diet. The Insulin is there if needed. Yesterday his glucose was 91, 179, 246, 124, and then 131. This morning he is 219 with his steroids that I started. I am only giving him 3 doses of steroids and stopping. (9) Advanced Care Planning discussion documented under separate dictation (10) Anemia Check anemia panel.
[2018-04-22] MEDS ORDERED: CALCIUM GLUCONATE 1,000 MG in SODIUM CHLORIDE 0.9% 50 ML IV ONE (09:00)
[2018-04-22] MEDS: FAMOTIDINE 20 MG TABLET PO SCH (09:04)
[2018-04-22] MEDS: MAGNESIUM OXIDE 400 MG TABLET PO SCH (09:04)
[2018-04-22] MEDS: LOSARTAN 50 MG TABLET PO SCH (09:04)
[2018-04-22] MEDS: FERROUS SULFATE 325 MG TABLET PO SCH (09:04)
[2018-04-22] MEDS: INSULIN ASPART 300 UNIT/3 ML PEN SUBQ SCH ×4 (09:05→22:01)
[2018-04-22] MEDS: METOPROLOL SUCCINATE 50 MG TABLET PO SCH (09:11)
[2018-04-22] MEDS: POLYETHYLENE GLYCOL 3350 17 GM PACKET PO SCH (09:12)
[2018-04-22] MEDS: TAMSULOSIN 0.4 MG CAPSULE PO SCH (09:17)
[2018-04-22] MEDS: SODIUM CHLORIDE 0.9% 1,000 ML IV SCH ×2 (10:43→21:58)
[2018-04-22] MEDS: CHOLECALCIFEROL 1,000 UNIT TABLET PO SCH (12:21)
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
[2018-04-22] MEDS: SODIUM CHLORIDE FLUSH 0.9% 10 ML SYRINGE IVP SCH ×3 (13:36→23:39)
[2018-04-22] MEDS: WARFARIN 5 MG TABLET PO SCH (13:43)
[2018-04-22] MEDS: guaiFENesin 600 MG TABLET PO SCH ×2 (13:47→22:00)
[2018-04-22] MEDS ORDERED: levoFLOXacin 250 MG TABLET PO SCH (16:00)
[2018-04-23 05:25] LABS: BASOPHILS % (AUTO) 0.3 %; EOSINOPHILS % (AUTO) 0.2 %; HGB - HEMOGLOBIN 10.6 g/dL (14.0-18.0); LYMPHOCYTES # (AUTO) 0.9 10^3/uL (1.5-3.5); LYMPHOCYTES % (AUTO) 9.3 %; MEAN CORPUSCULAR HEMOGLOBIN 28.3 pg (27.0-31.0); MEAN CORPUSCULAR HGB CONC 33.5 g/dL (32.0-36.0); MEAN CORPUSCULAR VOLUME 84.4 fL (80.0-94.0); MONOCYTES # (AUTO) 0.6 10^3/uL (0.0-1.0); MONOCYTES % (AUTO) 6.1 %; NEUTROPHILS # (AUTO) 8.6 10^3/uL (1.5-6.6); NEUTROPHILS % (AUTO) 84.1 %; PLT - PLATELET COUNT 363 10^3/uL (130-450); RED BLOOD COUNT 3.73 10^6/uL (4.70-6.10); WHITE BLOOD COUNT 10.2 x10^3/uL (4.8-10.8)
[2018-04-23 05:30] LABS: PT - PROTHROMBIN TIME 33.1 secs (9.9-12.6)
[2018-04-23 05:37] LABS: CALCIUM 7.9 mg/dL (8.5-10.3); CREATININE 0.9 mg/dL (0.6-1.2); MAGNESIUM 1.8 mg/dL (1.7-2.8)
[2018-04-23] MEDS: CALCIUM CARBONATE CHEW 500 MG TABLET PO SCH ×2 (06:23→13:58)
[2018-04-23] MEDS: glipiZIDE 5 MG TABLET PO SCH (06:23)
[2018-04-23 06:36] LABS: MEAN RETIC VALUE 113.6; RED BLOOD COUNT 3.78 10^6/uL (4.70-6.10)
[2018-04-23 06:48] LABS: IRON 36 ug/dL (45-182); TRANSFERRIN 187 mg/dL (180-329)
[2018-04-23] MEDS: FORMOTEROL FUMARATE NEB 20 MCG/2 ML INH SCH (07:33)
[2018-04-23] MEDS: BUDESONIDE 0.5 MG/2 ML NEB INH SCH (07:34)
[2018-04-23] MEDS: IPRATROPIUM 0.2 MG/ML NEB INH SCH (07:34)
[2018-04-23 08:09] VITALS: BP 149/66
[2018-04-23] MEDS: POLYETHYLENE GLYCOL 3350 17 GM PACKET PO SCH (08:12)
[2018-04-23] MEDS: guaiFENesin 600 MG TABLET PO SCH (08:13)
[2018-04-23] MEDS: CHOLECALCIFEROL 1,000 UNIT TABLET PO SCH (08:13)
[2018-04-23] MEDS: TAMSULOSIN 0.4 MG CAPSULE PO SCH (08:13)
[2018-04-23] MEDS: METOPROLOL SUCCINATE 50 MG TABLET PO SCH (08:14)
[2018-04-23] MEDS: MAGNESIUM OXIDE 400 MG TABLET PO SCH (08:14)
[2018-04-23] MEDS: SODIUM CHLORIDE FLUSH 0.9% 10 ML SYRINGE IVP SCH (08:15)
[2018-04-23] MEDS: INSULIN ASPART 300 UNIT/3 ML PEN SUBQ SCH ×2 (08:15→11:43)
[2018-04-23] MEDS: LOSARTAN 50 MG TABLET PO SCH (08:15)
[2018-04-23] MEDS: SODIUM CHLORIDE 0.9% 1,000 ML IV SCH (08:15)
[2018-04-23] MEDS: FAMOTIDINE 20 MG TABLET PO SCH (08:15)
[2018-04-23] MEDS: FERROUS SULFATE 325 MG TABLET PO SCH (08:15)
[2018-04-23] MEDS ORDERED: WARFARIN SODIUM 7.5 MG PO SCH (09:00)
--- NOTE | 2018-04-23 10:17 | Discharge Plan ---
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 Notify PCP of admission and forward orders to primary provider for signature. Weight on admission and: Weekly Call PCP immediately if weight increases by: 5 kg (if >5 kg over 1 week) Other Notification Orders: Call PCP immediately if patient develops dyspnea, chest pain/tightness or edema. House Bowel Program: Yes Additional Bowel Program Orders: If no BM after 2 days, nurse may give M.O.M. 30ml PO PRN and/or ducolax Supp 1 OK and/or REY 250mg P.O., and/or senna 1-2 tabs PO. On day 3 nurse may give repeat above order until residents constipation is resolved. Annual Influenza Vaccine (between Jan 19 and August 18): Yes Two-step PPD per [facility] [id number] or approved exception documents: Yes Treatments & Other Orders: Daily PT Oxygen Orders: 3L O2 per cannula Lab Tests or X-ray Orders: INR every Mon, Wed, Fri (INR target 2-3) Medication Orders: PLEASE REFER TO THE DISCHARGE MEDICATION LIST. Insulin Orders?: Yes - Medications New Prescriptions: Calcium Carbonate [Tums (Calcium Carbonate 500mg)] 500 mg PO BID #60 tablet Fluticasone/Salmeterol [Advair 250-50 Diskus] 1 each IH BID #60 blst.w.dev guaiFENesin [Mucinex] 600 mg PO BID #14 tablet levoFLOXacin [Levaquin] 750 mg PO 1600 #12 tablet Magnesium Oxide [Mag Ox] 400 mg PO DAILYWM #30 tablet Tiotropium Delano [Spiriva Respimat] 4 gm IH BID #60 mist.inhal - Diet Type: 2000 edgar Diabetic diet Texture: Regular Liquids: Thin May have monthly special meal: Yes - Therapies | Activity Therapy: Evaluation | Treat if indicated: PT, OT Rehabilitation Potential: Maximize functional status Activity: Activity as Tolerated Weight Bearing: Full Weight Assistance Devices: Walker Additional Instructions: The patient was on bid Lasix pre-hospitalization, but was admitted with RUSLAN. His Lasix has been on hold while hospitalized and he needed hydration, for the RUSLAN. The Lasix is being restart every other day, but may eventually be needed daily or bid. Insulin Orders - SNF Basal | Correction | Custom Orders: Diagnosis: Diabetes Initiate hypo and hyperglycemia protocols for BG <70 and BG >375. May check BG PRN for signs/symptoms of dysglycemia. Frequency of BG checks: [AC/HS] Correction Insulin: - Select the type of insulin below [Choose: Humalog]100 units /ml insulin inject subq per orders indicate below [X] LOW DOSE [] MODERATE DOSE [] MODERATE/HIGH DOSE [] HIGH DOSE GB UNITS GB UNITS GB UNITS GB UNITS 61-140 0 UNITS 61-140 0 UNITS 61-140 0 UNITS 61-140 0 UNITS 141-175 1 UNITS 141-175 1 UNITS 141-175 2 UNITS 141-175 3 UNITS 176-225 2 UNITS 176-225 3 UNITS 176-225 4 UNITS 176-225 5 UNITS 226-275 3 UNITS 226-275 5 UNITS 226-275 6 UNITS 226-275 7 UNITS 276-325 4 UNITS 276-325 7 UNITS 276-325 8 UNITS 276-325 9 UNITS 326-375 5 UNITS 326-375 9 UNITS 326-375 10 UNITS 326-375 11 UNITS >375 CONTACT MD >375 CONTACT MD >375 CONTACT MD >375 CONTACT MD"
[2018-04-23] MEDS ORDERED: WARFARIN 2.5 MG TABLET PO SCH (14:00)
--- NOTE | 2018-04-23 18:51 | DISCHARGE SUMMARY ---
Physician: Jenni Araujo MD DATE OF ADMISSION: 04/19/2018 DATE OF DISCHARGE: 04/23/2018 HISTORY OF PRESENT ILLNESS: This is a 72-year-old male with a history of COPD, laryngeal cancer with subsequent tracheostomy which has been stable for many years, history of diabetes on 3 oral agents, history of chronic atrial fibrillation on Coumadin, history of pulmonary hypertension and chronic systolic heart failure with ejection fraction approximately 35-45%. The patient presented after 3-5 days of progressive weakness, orthopnea, cough with minimal sputum production, fevers and chills and was found to have pneumonia on chest x-ray and admitted for management. HOSPITAL COURSE AND DISCHARGE DIAGNOSES 1. Community-acquired pneumonia due to Proteus. The patient's sputum culture returned showing Proteus species as well as Klebsiella. His antibiotics were initially chosen empirically using Cefepime and Zithromax to cover community- acquired pneumonia. He was eventually transitioned over to oral antibiotics using Levaquin 750 mg daily for an additional 4 days. 2. Chronic obstructive pulmonary disease exacerbation. The patient had minimal wheezing and was treated with nebulizers, did not require IV steroids, his oxygen was continued. He was discharged home with continuation of the Mucinex as well as Advair and Spiriva Respimat inhalers. 3. Chronic tracheostomy after laryngeal cancer. This was stable throughout the course, the patient was comfortable with his own trach care and he received supplemental oxygen via his trach while here. 4. Acute kidney injury. The patient was felt to have acute tubular necrosis resulting in acute kidney injury with a BUN of 35 and creatinine 2.3 at admission. His Lasix was discontinued throughout this entire hospital stay and he received slow IV hydration to correct his BUN to 20 and creatinine 1.1, and on the day of discharge, BUN 19 and creatinine 0.9. 5. Diabetes. The patient's Metformin was on hold while here in order to be able to use dye for any imaging studies, but he was continued on his other 2 oral agents and a backup sliding scale insulin coverage and a carb controlled diet was ordered. All 3 oral agents were resumed at discharge. 6. Chronic atrial fibrillation, on Coumadin. The patient was managed with his same dose of beta mehran and daily Coumadin. His INRs were mostly in the therapeutic range while here. He was discharged to [facility] for physical therapy rehabilitation with an order to have INR checks done on Sunday, Sunday, Sunday while there. The patient had a home medication list that listed Amiodarone 200 mg daily. This was stopped while here since it was not maintaining normal sinus rhythm, and it was not continued after discharge. 7. Pulmonary hypertension. The patient had an Echo while here that showed PA pressure of 29 mmHg, which is significantly improved from prior results showing pulmonary hypertension. 8. Hypocalcemia. The patient's admission calcium was 5.8 with a normal albumin. The PTH returned normal. The hypocalcemia was replaced with 1 IV dose and then he was started on oral calcium using Tums t.i.d. which helped raise his calcium to 6.2 and 6.9 and at the time of discharge, his calcium was 7.9. He was discharged with new orders for Tums b.i.d. and needs calcium checks in the future. He underwent urinary heavy metal evaluation to check for hypercalcuria and this result is pending at the time of discharge. 9. Hypomagnesemia. The patient's magnesium on admission was 0.6 and this was replaced IV and he was started on p.o. magnesium and discharged with supplemental magnesium to continue. Magnesium levels should be checked in the near future. His urine was also checked for magnesium loss in the urine and the result is also pending at the time of discharge. 10. Chronic systolic heart failure, [place] Heart Association class III. This patient's Echo during this admission showed an LVEF of 40%. His shortness of breath was not felt to be from an acute CHF exacerbation during this hospital stay. His admission BNP was 56, indicating no evidence of active heart failure. 11. Anemia. His admission hemoglobin was 11.7, which dropped into the 10.6 range with hydration through the rest of the hospital stay. He did not require transfusion. He did have lab values checked showing normal B12 level of 1257, normal folate level but low iron values and low vitamin D. He was started on iron and vitamin D replacement while here. 12. Hypertension. The patient had borderline low blood pressure while here and Lasix was on hold during his entire hospital stay. Medications were resumed at the time of discharge with the exception of Lasix, which was ordered to be used not 40 mg b.i.d., but 40 mg every other day. LABS AND IMAGING: Reviewed and summarized above. ALLERGIES: NONE. MEDICATIONS: At the time of discharge. 1. ProAir inhaler p.r.n. 2. Vitamin B6 tablet daily. 3. Iron 325 mg daily. 4. Advair inhaler b.i.d. 5. Glucotrol 20 mg b.i.d. 6. DuoNeb inhaler p.r.n. 7. Cozaar 50 mg daily. 8. Metformin 1000 mg b.i.d. 9. Metoprolol succinate 100 mg daily. 10. Prilosec 20 mg daily. 11. Potassium 10 mEq daily. 12. Januvia 100 mg daily. 13. Flomax 0.4 mg daily. 14. Trazodone 100 mg every night. 15. Warfarin 10 mg alternating with 7.5 mg daily. 16. Tums 500 mg b.i.d. 17. Lasix 40 mg every 48 hours 18. Mucinex 600 mg b.i.d. 19. Levofloxacin 750 mg daily for 4 days. 20. Magnesium oxide 200 mg daily. 21. Spiriva Respimat inhaler b.i.d. CONDITION AT DISCHARGE: Stable. PHYSICAL EXAMINATION: VITAL SIGNS: Blood pressure 130/51, heart rate 59 in atrial fibrillation, afebrile and oxygen saturation on 3L of supplemental oxygen was 98%. HEENT: Unremarkable. NECK: Trach present that was clean. CHEST: Clear with good air movement. HEART: Heart sounds normal. No audible murmur. ABDOMEN: Obese, nontender. Normal bowel sounds. EXTREMITIES: Trace pretibial edema. No clubbing or cyanosis. NEUROLOGIC: Intact. FOLLOWUP: He was advised to see his PCP after discharge from rehab at [facility]. CODE STATUS: DNR (a new POLST was signed on 04/22/18). Time required to complete this entire discharge, chart review, patient prescriptions, dictation: 60 minutes. TD: 04/23/2018 18:14 [facility]
[2018-04-24] MEDS ORDERED: WARFARIN 5 MG TABLET PO SCH (14:00)
[2018-04-25 17:06] LABS: CREATININE, RANDOM URINE 44 mg/dL (20-320)
== END 2018-04-23 14:35 | DRG 177 ==
LOC: EDUNIT# → ED 11:45 → MS2 14:37
PROVIDERS: ADMIT Internal Medicine; ATTEND Internal Medicine
DX: J15.6 Pneumonia due to other Gram-negative bacteria (principal); J18.9 Pneumonia, unspecified organism; J44.0 Chronic obstructive pulmonary disease with (acute) lower respiratory infection; N17.9 Acute kidney failure, unspecified; I48.91 Unspecified atrial fibrillation; N17.0 Acute kidney failure with tubular necrosis; I50.9 Heart failure, unspecified; B37.1 Pulmonary candidiasis; I50.22 Chronic systolic (congestive) heart failure; M19.90 Unspecified osteoarthritis, unspecified site; F17.200 Nicotine dependence, unspecified, uncomplicated; I25.2 Old myocardial infarction; J43.9 Emphysema, unspecified; Z99.81 Dependence on supplemental oxygen; I11.0 Hypertensive heart disease with heart failure; E83.51 Hypocalcemia; E83.42 Hypomagnesemia; D64.9 Anemia, unspecified; Z79.51 Long term (current) use of inhaled steroids; J15.0 Pneumonia due to Klebsiella pneumoniae; E86.0 Dehydration; I95.9 Hypotension, unspecified; R55 Syncope and collapse; I25.10 Atherosclerotic heart disease of native coronary artery without angina pectoris; E11.9 Type 2 diabetes mellitus without complications; I48.2 Chronic atrial fibrillation; I27.20 Pulmonary hypertension, unspecified; M25.552 Pain in left hip; Z66 Do not resuscitate; Z85.21 Personal history of malignant neoplasm of larynx; Z93.0 Tracheostomy status; Z79.84 Long term (current) use of oral hypoglycemic drugs; Z79.01 Long term (current) use of anticoagulants; Z79.899 Other long term (current) drug therapy; Z91.81 History of falling; Z72.0 Tobacco use; Z95.1 Presence of aortocoronary bypass graft
CPT/HCPCS: 36415; 71046; 80048; 80053; 82175; 82306; 82330; 82550; 82553; 82570; 82607; 82728; 83036; 83540; 83605; 83615; 83655; 83690; 83735; 83825; 83880; 83970; 84466; 84484; 85025; 85044; 85610; 87040; 87070; 87181; 87205; 93005; 93308; 94640; 96365; 99284; 99285

== ENCOUNTER 2018-04-29 08:00 | Outpatient (CLI) | payer MEDICARE, OTHER ==
[2018-04-29 13:53] LABS: BASOPHILS # (AUTO) 0.1 10^3/uL (0.0-0.1); BASOPHILS % (AUTO) 1.7 %; EOSINOPHILS # (AUTO) 0.1 10^3/uL (0.0-0.7); EOSINOPHILS % (AUTO) 1.9 %; HGB - HEMOGLOBIN 10.3 g/dL (14.0-18.0); LYMPHOCYTES # (AUTO) 1.3 10^3/uL (1.5-3.5); LYMPHOCYTES % (AUTO) 17.6 %; MEAN CORPUSCULAR HEMOGLOBIN 28.3 pg (27.0-31.0); MEAN CORPUSCULAR HGB CONC 33.8 g/dL (32.0-36.0); MEAN CORPUSCULAR VOLUME 83.9 fL (80.0-94.0); MEAN PLATELET VOLUME 7.5 fL (7.4-11.4); MONOCYTES # (AUTO) 0.7 10^3/uL (0.0-1.0); MONOCYTES % (AUTO) 9.5 %; NEUTROPHILS % (AUTO) 69.3 %; PLT - PLATELET COUNT 333 10^3/uL (130-450); RED BLOOD COUNT 3.65 10^6/uL (4.70-6.10); RED CELL DISTRIBUTION WIDTH 17.6 % (12.0-15.0); WHITE BLOOD COUNT 7.1 x10^3/uL (4.8-10.8)
[2018-04-29 14:37] LABS: CALCIUM 8.6 mg/dL (8.5-10.3)
== END 2018-04-29 23:59 | disposition home or self-care (01) ==
LOC: LAB.R 08:00
DX: R79.89 Other specified abnormal findings of blood chemistry (principal); R68.3 Clubbing of fingers
CPT/HCPCS: 80048; 85025

== ENCOUNTER 2018-05-06 08:00 | Outpatient (CLI) | payer MEDICARE, OTHER ==
[2018-05-07 11:13] LABS: HEPATITIS C ANTIBODY NON-REACTIVE (NON-REACTIVE)
== END 2018-05-06 23:59 | disposition home or self-care (01) ==
LOC: LAB.R 08:00
PROVIDERS: ATTEND Family Medicine
DX: Z11.59 Encounter for screening for other viral diseases (principal); Z11.4 Encounter for screening for human immunodeficiency virus [HIV]
CPT/HCPCS: 86803; 87389

== ENCOUNTER 2018-05-07 08:00 | Outpatient (CLI) | payer MEDICARE, OTHER ==
[2018-05-08 13:11] LABS: HIV AG/AB 4TH GEN NON-REACTIVE (NON-REACTIVE)
== END 2018-05-07 23:59 | disposition home or self-care (01) ==
LOC: LAB.R 08:00
DX: Z11.4 Encounter for screening for human immunodeficiency virus [HIV] (principal)
CPT/HCPCS: 87389

== ENCOUNTER 2018-05-15 08:00 | Outpatient (CLI) | payer MEDICARE, OTHER ==
[2018-05-15 15:00] LABS: CALCIUM 8.1 mg/dL (8.5-10.3); CREATININE 1.1 mg/dL (0.6-1.2)
== END 2018-05-15 23:59 | disposition home or self-care (01) ==
LOC: LAB.R 08:00
DX: N18.9 Chronic kidney disease, unspecified (principal)
CPT/HCPCS: 80048

== ENCOUNTER 2018-06-11 08:00 | Outpatient (CLI) | payer MEDICARE, OTHER ==
[2018-06-11 19:58] LABS: CALCIUM 7.3 mg/dL (8.5-10.3); CREATININE 1.1 mg/dL (0.6-1.2)
== END 2018-06-11 23:59 | disposition home or self-care (01) ==
LOC: LAB.N 08:00
PROVIDERS: ATTEND Nurse Practitioner Gerontology
DX: I48.91 Unspecified atrial fibrillation (principal); N17.9 Acute kidney failure, unspecified
CPT/HCPCS: 36415; 80048; 85610

== ENCOUNTER 2018-06-14 08:00 | Outpatient (CLI) | payer MEDICARE, OTHER | END 2018-06-14 23:59 | disposition home or self-care (01) | LOC: LAB.N 08:00 | PROVIDERS: ATTEND Nurse Practitioner Gerontology | DX: I48.91 Unspecified atrial fibrillation (principal) | CPT/HCPCS: 85610 ==

== ENCOUNTER 2018-06-16 15:24 | Outpatient (CLI) | payer MEDICARE, OTHER | END 2018-06-16 15:25 | disposition critical access hospital (66) | LOC: EMS 15:24 | PROVIDERS: ATTEND Surgery | DX: R06.00 Dyspnea, unspecified (principal); J44.9 Chronic obstructive pulmonary disease, unspecified; F17.210 Nicotine dependence, cigarettes, uncomplicated; Z99.81 Dependence on supplemental oxygen | CPT/HCPCS: A0425; A0427 ==

== ENCOUNTER 2018-06-16 15:42 | Inpatient (IN) | payer MEDICARE, OTHER ==
[2018-06-16] MEDS ORDERED: SODIUM CHLORIDE 0.9% 1,000 ML IV ONE (15:48)
--- NOTE | 2018-06-16 15:52 | ED Physician Documentation ---
PD HPI DYSPNEA - Stated complaint Stated Complaint: DYSPNEA - Chief complaint Chief Complaint: Resp - History obtained from History obtained from: Patient, EMS - History of Present Illness Timing - onset: How many days ago (4-5) Timing - onset during: Rest Timing - duration: Days (4-5) Timing - details: Gradual onset, Still present Inciting event(s): URI Improved by: O2, Inhaler/neb, Rest Worsened by: Exertion, Coughing Associated symptoms: Cough, Other (increased sputum) Similar symptoms before: Diagnosis (pneumonia) Recently seen: Admitted - Additional information Additional information: 72-year-old male with a prior history of laryngeal cancer who has a trach in place has had a recent bout of pneumonia that he required admission for and he was discharged to [facility] and he has been back home for about 1 week. Over the last 4-5 days he has noticed an increase in the sputum production and over the last 2 days he has become dizzy and lightheaded. He has increasing shortness of breath and today's called the ambulance. Review of Systems Constitutional: reports: Fatigue. denies: Fever, Chills Eyes: denies: Decreased vision Ears: denies: Ear pain Nose: reports: Congestion Throat: denies: Sore throat Cardiac: denies: Chest pain / pressure, Palpitations Respiratory: reports: Dyspnea, Cough, Wheezing GI: denies: Abdominal Pain, Nausea, Vomiting : denies: Dysuria, Frequency Skin: denies: Rash Musculoskeletal: denies: Neck pain, Back pain, Extremity pain Neurologic: denies: Generalized weakness, Focal weakness, Numbness PD PAST MEDICAL HISTORY - Past Medical History Cardiovascular: Congestive heart failure, Hypertension, High cholesterol, Coronary artery disease, [place] Respiratory: COPD, Shortness of breath, Sleep apnea, CPAP use, Other Neuro: None Endocrine/Autoimmune: Type 2 diabetes GI: GERD : None HEENT: Other Psych: None Musculoskeletal: Osteoarthritis Derm: None - Past Surgical History Past Surgical History: Yes General: Other Cardiovascular: CABG HEENT: Cataracts, Tracheostomy - Present Medications Home Medications: Ambulatory Orders Medication Instructions Recorded Confirmed Trazodone HCl 100 mg PO QPM PRN 10/15/12 04/19/18 glipiZIDE [Glucotrol] 20 mg PO BIDAC 10/15/12 04/19/18 Omeprazole [PriLOSEC] 20 mg PO QDAC 04/29/13 04/19/18 SITagliptin [Januvia] 100 mg PO DAILY 02/14/17 04/19/18 Tamsulosin [Flomax] 0.4 mg PO DAILY 02/14/17 04/19/18 Warfarin Sodium [Coumadin] 5 mg PO MOWEFR 02/14/17 04/19/18 Albuterol Sulfate [Proair Hfa 2 puffs INH Q4H PRN 04/05/17 04/19/18 Inhaler] Ipratropium/Albuterol [Duoneb] 3 ml INH QID 04/05/17 04/19/18 Amiodarone [Pacerone] 200 mg PO DAILY 04/19/18 04/19/18 B6/Levomefolate/B12/Ala/If 1 tab PO BID 04/19/18 04/19/18 [Abatrex with Ala Tablet] Ferrous Sulfate 325 mg PO DAILY 04/19/18 04/19/18 Losartan [Cozaar] 50 mg PO DAILY 04/19/18 04/19/18 Metformin HCl 1,000 mg PO BID 04/19/18 04/19/18 Metoprolol Succinate 100 mg PO DAILY 04/19/18 04/19/18 Potassium Chloride 10 meq PO DAILY 04/19/18 04/19/18 Calcium Carbonate [Tums (Calcium 500 mg PO BID #60 tablet 04/23/18 Carbonate 500mg)] Fluticasone/Salmeterol [Advair 1 each IH BID #60 blst.w.dev 04/23/18 250-50 Diskus] Furosemide [Lasix] 40 mg PO Q48H #15 04/23/18 04/19/18 Magnesium Oxide [Mag Ox] 400 mg PO DAILYWM #30 tablet 04/23/18 Tiotropium [place] [Spiriva 4 gm IH BID #60 mist.inhal 04/23/18 Respimat] - Allergies Allergies/Adverse Reactions: Allergies Allergy/AdvReac Type Severity Reaction Status Date / Time No Known Drug Allergies Allergy Verified 06/16/18 16:01 - Social History Does the pt smoke?: Yes Smoking Status: Current every day smoker Does the pt drink ETOH?: No Does the pt have substance abuse?: No - Immunizations Immunizations are current?: Yes - POLST Patient has POLST: No POLST Status: Full Code PD ED PE NORMAL - Vitals Vital signs reviewed: Yes (tachy and hypertensive ) - General General: Alert and oriented X 3, No acute distress, Well developed/nourished - HEENT HEENT: Atraumatic, PERRL, EOMI, Ears normal, Other (dry mucous membranes ) - Neck Neck: Supple, no meningeal sign, No bony TTP, Other (trache tube in place ) - Cardiac Cardiac: RRR, No murmur - Respiratory Respiratory: No respiratory distress, Other (bibasilar rhonchi worse on the left) - Abdomen Abdomen: Soft, Non tender - Back Back: No CVA TTP, No spinal TTP - Derm Derm: Normal color, Warm and dry, No rash - Extremities Extremities: No deformity, Other (trace edema bilaterally ) - Neuro Neuro: Alert and oriented X 3, glue line operator 2-12 intact, No motor deficit, No sensory deficit, Normal speech Eye Opening: Spontaneous Motor: Obeys Commands Verbal: Oriented GCS Score: 15 - Psych Psych: Normal mood, Normal affect Results - Vitals Vitals: Vital Signs - 24 hr 06/16/18 06/16/18 06/16/18 15:39 15:50 16:00 Temperature 36.0 C L Heart Rate 104 H 84 90 Respiratory 22 20 20 Rate Blood Pressure 128/100 H 123/100 H 118/66 O2 Saturation 95 98 97 Oxygen O2 Source [] Nasal cannula O2 Source [] Nasal cannula O2 Source Room air Oxygen Flow Rate 3 - EKG (time done) 1552 Rate: Rate (enter#) (84) Rhythm: NSR Intervals: LBBB Compare to prior EKG: Unchanged from prior EKG (SPT 04-19-18 no sig change. ) Computer interpretation: Agree with computer - Labs Labs: Laboratory Tests 06/16/18 06/16/18 06/16/18 16:03 16:03 16:03 WBC 6.8 RBC 4.02 L Hgb 11.0 L Hct 33.5 L MCV 83.3 MCH 27.4 MCHC 32.8 RDW 16.9 H Plt Count 352 MPV 7.2 L Neut # (Auto) 4.9 Lymph # (Auto) 1.1 L [place] # (Auto) 0.5 Eos # (Auto) 0.1 Baso # (Auto) 0.1 Absolute Nucleated RBC 0.00 Nucleated RBC % 0.0 Sodium 140 Potassium 3.8 Chloride 99 L Carbon Dioxide 24 Anion Gap 17.0 H BUN 20 Creatinine 1.5 H Estimated GFR (MDRD) 46 L Glucose 268 H Lactic Acid Calcium 6.2 L* Total Bilirubin 0.3 AST 23 ALT 14 Alkaline Phosphatase 77 Troponin I < 0.04 B-Natriuretic Peptide Total Protein 7.3 Albumin 3.5 Globulin 3.8 Albumin/Globulin Ratio 0.9 L Lipase 29 06/16/18 06/16/18 16:03 16:03 WBC RBC Hgb Hct MCV MCH MCHC RDW Plt Count MPV Neut # (Auto) Lymph # (Auto) [place] # (Auto) Eos # (Auto) Baso # (Auto) Absolute Nucleated RBC Nucleated RBC % Sodium Potassium Chloride Carbon Dioxide Anion Gap BUN Creatinine Estimated GFR (MDRD) Glucose Lactic Acid 3.5 H* Calcium Total Bilirubin AST ALT Alkaline Phosphatase Troponin I B-Natriuretic Peptide 62 Total Protein Albumin Globulin Albumin/Globulin Ratio Lipase - Rads (name of study) CXR Radiology: Prelim report reviewed (Impression: Left basilar opacity suggestive of infiltrate and/or effusion, less likely atelectasis.), EMP read indepedently, See rad report Procedures - IVC sono (time) 1540 Bedside IVC sono: IVC measures (cm) (1.28), IVC collapsed c insp (cm) (complete), Dehydration (est 1 liter deficit) PD MEDICAL DECISION MAKING - ED course Complexity details: reviewed old records, reviewed results, re-evaluated patient, considered differential, d/w patient ED course: 72-year-old male with a remote history of laryngeal cancer was had a trach in place since the 1900s has developed cough and worsening shortness of breath with lightheadedness and dizziness over the past several days. He has had a recent episode of pneumonia and he appears to have a recurrence of his pneumonia. He is glucose is elevated and he is intravascularly depleted. He also has significantly low calcium and an elevated lactate. IV saline is administered IV calcium is administered and patient remains on 3 L nasal cannula oxygen. His prior pneumonia grew klebselia and proteus both organisms were sensitive. Departure - Departure Disposition: [facility] DC/Xfer Clinical Impression: Dehydration, Hypocalcemia Pneumonia Qualifiers: Pneumonia type: due to unspecified organism Laterality: left Lung location: lower lobe of lung Qualified Code(s): J18.1 - Lobar pneumonia, unspecified organism Condition: Stable
[2018-06-16 16:09] LABS: BASOPHILS # (AUTO) 0.1 10^3/uL (0.0-0.1); BASOPHILS % (AUTO) 1.2 %; EOSINOPHILS # (AUTO) 0.1 10^3/uL (0.0-0.7); EOSINOPHILS % (AUTO) 1.3 %; LYMPHOCYTES # (AUTO) 1.1 10^3/uL (1.5-3.5); LYMPHOCYTES % (AUTO) 16.9 %; MEAN CORPUSCULAR HEMOGLOBIN 27.4 pg (27.0-31.0); MEAN CORPUSCULAR HGB CONC 32.8 g/dL (32.0-36.0); MEAN CORPUSCULAR VOLUME 83.3 fL (80.0-94.0); MEAN PLATELET VOLUME 7.2 fL (7.4-11.4); MONOCYTES # (AUTO) 0.5 10^3/uL (0.0-1.0); MONOCYTES % (AUTO) 7.4 %; NEUTROPHILS # (AUTO) 4.9 10^3/uL (1.5-6.6); NEUTROPHILS % (AUTO) 73.2 %; PLT - PLATELET COUNT 352 10^3/uL (130-450); RED BLOOD COUNT 4.02 10^6/uL (4.70-6.10); RED CELL DISTRIBUTION WIDTH 16.9 % (12.0-15.0); WHITE BLOOD COUNT 6.8 x10^3/uL (4.8-10.8)
[2018-06-16 16:27] LABS: ALBUMIN 3.5 g/dL (3.2-5.5); ALBUMIN/GLOBULIN RATIO 0.9 (1.0-2.2); BILIRUBIN,TOTAL 0.3 mg/dL (0.2-1.0); CREATININE 1.5 mg/dL (0.6-1.2); TOTAL PROTEIN 7.3 g/dL (6.7-8.2)
[2018-06-16 16:30] LABS: CALCIUM 6.2 mg/dL (8.5-10.3)
--- NOTE | 2018-06-16 16:44 | XRAY Report ---
Reason: chest pain Procedure Date: 06/16/2018 Accession Number: [id number] / [id number] Procedure: XR - Chest 1 View X-Ray CPT Code: 56350 FULL RESULT: EXAM: CHEST RADIOGRAPHY EXAM DATE: 06/16/2018 04:17 PM. CLINICAL HISTORY: Chest pain. COMPARISON: CHEST 2 VIEW 04/19/2018 1:09 PM. TECHNIQUE: 1 view. FINDINGS: Lungs/Pleura: There is left basilar opacity suggestive of infiltrate and/or effusion, less likely atelectasis. Mediastinum: Within exam limitations, the cardiomediastinal contour is normal. Poststernotomy changes noted, with AICD in place. Tracheostomy tube is unchanged. Other: None. IMPRESSION: Left basilar opacity suggestive of infiltrate and/or effusion, less likely atelectasis. RADIA
[2018-06-16] MEDS ORDERED: CALCIUM GLUCONATE 1000 MG/10 ML VIAL IVP STA (17:02)
[2018-06-16] MEDS ORDERED: CEFEPIME 1 GM in SODIUM CHLORIDE 0.9% MINIBAG 100 ML IV STA (17:06)
[2018-06-16] MEDS ORDERED: CALCIUM GLUCONATE 2,000 MG in SODIUM CHLORIDE 0.9% 100ML 100 ML IV STA (17:26)
[2018-06-16] MEDS ORDERED: ONDANSETRON 4 MG/2 ML VIAL IVP PRN (17:43)
[2018-06-16] MEDS ORDERED: ACETAMINOPHEN 325 MG TABLET PO PRN (17:43)
--- NOTE | 2018-06-16 17:58 | HISTORY & PHYSICAL EXAMINATION ---
Chief Complaint - Chief Complaint Chief Complaint: cough, SOB and dizziness History of Present Illness - History of Present Illness HPI Comment/Other: Patient is a 71-year-old gentleman with a past medical history significant for hypertension, hyperlipidemia, hypocalcemia, coronary artery disease status post CABG, congestive heart failure with an ejection fraction of 40-45% on his last echo in 03/2018, COPD on 2-3 L of oxygen at night, history of laryngeal cancer status post tracheostomy since 1989, obstructive sleep apnea, diabetes and osteoarthritis who presented to the emergency department with a chief complaint of productive cough, shortness of breath and dizziness. Pt had a recent pneumonia, then he was discharged to [facility], and he went back home for about 1 week. pt report in the past 4-5 days he had an increase productive s putum, felt shortness of breath, and become more dizzy and lightheaded. CXR reveals left basilar opacity suggestive of infiltrate and or effusion. Lab test reveals he had significantly low calcium and an elevated lactate, and elevated creatinine. His sputum culture on prior pneumonia was fount to have klebselia and proteus, both organisms were sensitive to Cefepime. Pt denies fever, chill, headache, chest pain, abdominal pain, nausea, vomiting, diarrhea, dysuria, hematouria, vision change, focus neurological deficits. As a result of his presentation, pt was admitted in the hospital. History - Past Medical History Cardiovascular: reports: Congestive heart failure, Hypertension, High cholesterol, Coronary artery disease, [place] Respiratory: reports: COPD, Shortness of breath, Sleep apnea, CPAP use, Other Neuro: reports: None Endocrine/Autoimmune: reports: Type 2 diabetes GI: reports: GERD : reports: None HEENT: reports: Other Psych: reports: None Musculoskeletal: reports: Osteoarthritis Derm: reports: None MRSA Hx?: No - Past Surgical History General: reports: Other Cardiovascular: reports: CABG HEENT: reports: Cataracts, Tracheostomy - Family & Social History Social History Notes: Patient states that he lives alone in [place] [facility]. He has 2 children 1 of whom lives in the area and the other one lives in [place]. The patient is , he states his in 2000 and currently he is alone and takes care of himself. He states he is able to care for his own trach and does not have any caregivers or but does have somebody help in cleaning the home. The patient states that he smokes 1-1-1/2 packs of cigarettes a day and has been smoking for over 50 years. He denies any alcohol or drug use. - Substance History Use: Uses substance without health or social issues: Tobacco - POLST Patient has POLST: No POLST Status: DNR Meds/Allgy - Home Medications Home Medications: Ambulatory Orders Medication Instructions Recorded Confirmed Trazodone HCl 100 mg PO QPM PRN 10/15/12 04/19/18 glipiZIDE [Glucotrol] 20 mg PO BIDAC 10/15/12 04/19/18 Omeprazole [PriLOSEC] 20 mg PO QDAC 04/29/13 04/19/18 SITagliptin [Januvia] 100 mg PO DAILY 02/14/17 04/19/18 Tamsulosin [Flomax] 0.4 mg PO DAILY 02/14/17 04/19/18 Warfarin Sodium [Coumadin] 5 mg PO MOWEFR 02/14/17 04/19/18 Albuterol Sulfate [Proair Hfa 2 puffs INH Q4H PRN 04/05/17 04/19/18 Inhaler] Ipratropium/Albuterol [Duoneb] 3 ml INH QID 04/05/17 04/19/18 Amiodarone [Pacerone] 200 mg PO DAILY 04/19/18 04/19/18 B6/Levomefolate/B12/Ala/If 1 tab PO BID 04/19/18 04/19/18 [Abatrex with Ala Tablet] Ferrous Sulfate 325 mg PO DAILY 04/19/18 04/19/18 Losartan [Cozaar] 50 mg PO DAILY 04/19/18 04/19/18 Metformin HCl 1,000 mg PO BID 04/19/18 04/19/18 Metoprolol Succinate 100 mg PO DAILY 04/19/18 04/19/18 Potassium Chloride 10 meq PO DAILY 04/19/18 04/19/18 Calcium Carbonate [Tums (Calcium 500 mg PO BID #60 tablet 04/23/18 Carbonate 500mg)] Fluticasone/Salmeterol [Advair 1 each IH BID #60 blst.w.dev 04/23/18 250-50 Diskus] Furosemide [Lasix] 40 mg PO Q48H #15 12/04/18 11/30/18 Magnesium Oxide [Mag Ox] 400 mg PO DAILYWM #30 tablet 04/23/18 Tiotropium [place] [Spiriva 4 gm IH BID #60 mist.inhal 04/23/18 Respimat] - Allergies Allergies/Adverse Reactions: Allergies Allergy/AdvReac Type Severity Reaction Status Date / Time No Known Drug Allergies Allergy Verified 06/16/18 16:01 Review of Systems - Constitutional Constitutional: reports: Fatigue. denies: Fever, Chills, Malaise, Weakness, Poor appetite, Diaphoresis, Night sweats - Eyes Eyes: denies: Pain, Irritation, Amaurosis, Blurred vision, Spots in vision, Field loss, Vision loss, Dipolpia - Ears, Nose & Throat Ears, Nose & Throat: denies: Ear pain, Hearing loss, Hearing aids, Vertigo, Nasal pain, Nasal discharge, Nosebleeds, Nasal obstruction, Nasal congestion, Postnasal drainage, Dentures, Sore throat, Hoarseness - Cardiovascular Cariovascular: reports: Lightheadedness, Exertional dyspnea. denies: Irregular heart rate, Palpitations, Chest pain, Edema, Syncope, Decr. exercise tolerance - Respiratory Respiratory: reports: Cough, Sputum production, SOB with exertion. denies: Wheezing, Snoring, Hemoptysis, Orthopnea, SOB at rest - Gastrointestinal Gastrointestinal: denies: Abdominal pain, Abdominal distention, Constipation, Diarrhea, Change in bowel habits, Rectal bleeding, Black stools, Bloody stools, Nausea, Vomiting, Bile emesis, [place] blood emesis, Coffee grounds emesis, Reflux/heartburn - Genitourinary Genitourinary: denies: Dysuria, Frequency, Urgency, Hematuria, Incontinence, Flank pain, Nocturia, Urethral discharge - Musculoskeletal Musculoskeletal: denies: Muscle pain, Back pain, Muscle aches, Stiffness, Limited range of motion, Muscle weakness, Gout, Joint pain - Integumentary Integumentary: denies: Rash, Pruritis, Lesions, Dryness, Lumps, Acne, Pigment changes, Nail changes - Neurological Neurological: denies: General weakness, Focal weakness, Headache, Dizziness, Numbness, Memory problems, Pre-existing deficit, Abnormal gait, Seizures, Incoordination, Slurred speech - Psychiatric Psychiatric: denies: Depression, Anxiety, Suicidal, Delusions, Hallucinations, Homicidal - Endocrine Endocrine: denies: Polyuria, Polydypsia, Polyphagia, Intolerance to cold - Hematologic/Lymphatic Hematologic/Lymphatic: reports: Recurrent infections. denies: Anemia, Bruising, Petechiae, Blood clots, Lymphadenopathy, Bleeding tendencies Prior Level of Functionality: pt is independent living at [place] Exam - Vital Signs Reviewed Vital Signs: Yes Vital Signs: Vital Signs x48h Temp Pulse Resp BP Pulse Ox 06/16/18 16:00 90 20 118/66 97 06/16/18 15:50 84 20 123/100 H 98 06/16/18 15:39 36.0 C L 104 H 22 128/100 H 95 - Physical Exam General Appearance: positive: No acute distress, Alert. negative: Lethargic Eyes Bilateral: positive: Normal inspection, PERRL, No lid inflammation, Conjunctivae nml ENT: positive: ENT inspection nml, No signs of dehydration. negative: Purulent nasal drainage, Pharyngeal erythema, Oral lesions Neck: positive: No JVD. negative: Lymphadenopathy (R), Lymphadenopathy (L), Stiff neck, Swelling/bruising Respiratory: positive: Chest non-tender, No respiratory distress. negative: Wheezes, Rales, Rhonchi Cardiovascular: positive: Regular rate & rhythm, No murmur, No gallop. negative: Irregularly irregular, Extrasystoles, Tachycardia, Bradycardia, JVD present, Systolic murmur, Diastolic murmur Peripheral Pulses: positive: 2+ Abdomen: positive: Non-tender, No organomegaly, Nml bowel sounds, No distention. negative: Tenderness, Guarding, Rebound Back: positive: Nml inspection. negative: CVA tenderness (R), CVA tenderness (L) Skin: positive: Color nml, No rash, Warm, Dry. negative: Cyanosis, Diaphoresis, Pallor Extremities: positive: Non-tender, Full ROM, Nml appearance. negative: Calf tenderness, Joint swelling, Wenceslao's sign/cords Neurologic/Psychiatric: positive: Oriented x3, Motor nml, Sensation nml, Mo od/affect nml. negative: Weakness, Sensory loss, Facial droop, Slurred/abnml speech, Depressed mood/affect Sepsis Event Note (H) - Evaluation Current Stage of Sepsis: Sepsis Possible source of Sepsis: positive: Pulmonary - Sepsis Criteria Sepsis Criteria: Recorded Heart Rate greater than 90 bpm, Metabolic: lactate > 2 mmol/L Conclusion/Plan - Problem List (1) Pneumonia Conclusion/Plan: recurrent pneumonia. 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 Pt was discharged from [facility] about one week ago, pt is high risk for MRSA. treat with Cefepime and Vancomycin sputum culture blood culture Duoneb and albuterol PRN tracheotomy care with RT Qualifiers: Pneumonia type: due to unspecified organism Laterality: left Lung location: lower lobe of lung Qualified Code(s): J18.1 - Lobar pneumonia, unspecified organism (2) Hypocalcemia Conclusion/Plan: pt present hx of hypocalcemia, today pt is 6.2. unknown etiology. pt has hx of laryngeal cancer and CKD replacement of Calcium lab monitor calcium level tele monitor now and vital monitor (3) DM type 2 (diabetes mellitus, type 2) Conclusion/Plan: pt did not take insulin at home, elevated blood glucose. slide scale, ACHS hypoglycemia check A1C (4) Dehydration Conclusion/Plan: pt present elevated creatinine level and BUN Hydration pt but also precaution fluid overload, pt has hx of systolic heart failure lab and vital monitor (5) Systolic heart failure Conclusion/Plan: pt appears not presentation of acute heart failure at this time. pt had 40-45% EF at the last ECHO reconcile home meds Lisinopril, Metoprolol tele and vital monitor (6) Elevated lactic acid level Conclusion/Plan: pt has elevated Lactic acid level at 3.5, it seems from pneumonia treat pneumonia with antibiotics recheck Lactic acid level pt has no fever, chill, WBC is normal. closely monitor pt and prevention for sepsis (7) Do not intubate, cardiopulmonary resuscitation (CPR)-only code status Conclusion/Plan: pt clearly request code status for DNR - Lab Results Fish Bones: 06/16/18 16:03 06/16/18 16:03 Core Measures - Anticipated LOS I expect patient to be DC'd or transferred within 96 hours.: Yes - DVT/VTE - Prophylaxis VTE/DVT Device ordered at admit?: Yes VTE/DVT Prophylaxis med ordered at admit?: Yes
[2018-06-16] MEDS ORDERED: VANCOMYCIN PER PHARMACY 1 GM in SODIUM CHLORIDE 0.9% 250 ML IV SCH (18:00)
[2018-06-16] MEDS ORDERED: SODIUM CHLORIDE 0.9% 1,000 ML IV SCH (18:00)
[2018-06-16] MEDS ORDERED: CEFEPIME 1 GM in SODIUM CHLORIDE 0.9% MINIBAG 100 ML IV SCH (18:00)
[2018-06-16 18:11] LABS: INR 2.1 (0.8-1.2); PT - PROTHROMBIN TIME 23.7 secs (9.9-12.6)
[2018-06-16 18:23] LABS: HB2 TOTAL 11.5 g/dL; HEMOGLOBIN A1C 0.55 g/dL; HEMOGLOBIN A1C % 6.5 % (4.6-6.2)
[2018-06-16 19:05] LABS: BILIRUBIN,URINE NEGATIVE (NEGATIVE); GLUCOSE, URINE (UA) 250 mg/dL (NEGATIVE); KETONES,URINE (UA) NEGATIVE (NEGATIVE); LEUKOCYTE ESTERASE, URINE NEGATIVE (NEGATIVE); NITRITE,URINE NEGATIVE (NEGATIVE); OCCULT BLOOD,URINE NEGATIVE (NEGATIVE); PH,URINE 5.5 PH (5.0-7.5); PROTEIN,URINE NEGATIVE (NEGATIVE); UROBILINOGEN,URINE 0.2 (NORMAL) E.U./dL (NORMAL)
[2018-06-16 19:07] LABS: CLARITY,URINE CLEAR (CLEAR)
[2018-06-16] MEDS ORDERED: VANCOMYCIN INJ 2 GM in SODIUM CHLORIDE 0.9% 500 ML IV SCH (20:00)
[2018-06-16] MEDS ORDERED: BUDESONIDE 0.5 MG/2 ML NEB INH ONE (20:21)
[2018-06-16] MEDS ORDERED: FORMOTEROL FUMARATE NEB 20 MCG/2 ML INH ONE (20:21)
[2018-06-16] MEDS: BUDESONIDE 0.5 MG/2 ML NEB INH SCH (20:25)
[2018-06-16] MEDS: IPRATROPIUM/ALBUTEROL 3 ML NEB INH PRN (20:25)
[2018-06-16] MEDS: FORMOTEROL FUMARATE NEB 20 MCG/2 ML INH SCH (20:26)
[2018-06-16] MEDS: INSULIN ASPART 300 UNIT/3 ML PEN SUBQ SCH (20:45)
[2018-06-16] MEDS: CALCIUM CARBONATE CHEW 500 MG TABLET PO SCH (21:27)
[2018-06-16] MEDS: guaiFENesin 600 MG TABLET PO SCH (21:27)
[2018-06-16] MEDS: FAMOTIDINE 20 MG TABLET PO SCH (21:27)
[2018-06-16] MEDS: HEPARIN 5,000 UNIT/ML VIAL SUBQ SCH (21:29)
[2018-06-17] MEDS: CEFEPIME 1 GM in SODIUM CHLORIDE 0.9% MINIBAG 100 ML IV SCH ×4 (00:13→22:57)
[2018-06-17] MEDS ORDERED: SODIUM CHLORIDE FLUSH 0.9% 10 ML SYRINGE ONE (04:45)
[2018-06-17] MEDS: IPRATROPIUM/ALBUTEROL 3 ML NEB INH PRN (05:06)
[2018-06-17 05:27] LABS: BASOPHILS # (AUTO) 0.1 10^3/uL (0.0-0.1); BASOPHILS % (AUTO) 1.1 %; EOSINOPHILS # (AUTO) 0.2 10^3/uL (0.0-0.7); EOSINOPHILS % (AUTO) 2.7 %; HGB - HEMOGLOBIN 10.1 g/dL (14.0-18.0); LYMPHOCYTES # (AUTO) 1.5 10^3/uL (1.5-3.5); LYMPHOCYTES % (AUTO) 21.5 %; MEAN CORPUSCULAR HGB CONC 32.6 g/dL (32.0-36.0); MEAN PLATELET VOLUME 7.4 fL (7.4-11.4); MONOCYTES # (AUTO) 0.5 10^3/uL (0.0-1.0); MONOCYTES % (AUTO) 7.6 %; NEUTROPHILS # (AUTO) 4.7 10^3/uL (1.5-6.6); NEUTROPHILS % (AUTO) 67.1 %; PLT - PLATELET COUNT 342 10^3/uL (130-450); RED BLOOD COUNT 3.73 10^6/uL (4.70-6.10)
[2018-06-17 05:31] LABS: INR 2.1 (0.8-1.2); PT - PROTHROMBIN TIME 23.5 secs (9.9-12.6)
[2018-06-17 05:42] LABS: BILIRUBIN,TOTAL 0.2 mg/dL (0.2-1.0); CALCIUM 6.7 mg/dL (8.5-10.3); CREATININE 1.1 mg/dL (0.6-1.2); TOTAL PROTEIN 6.1 g/dL (6.7-8.2)
[2018-06-17 05:43] LABS: MAGNESIUM 0.8 mg/dL (1.7-2.8)
[2018-06-17] MEDS: SODIUM CHLORIDE FLUSH 0.9% 10 ML SYRINGE IVP SCH ×3 (05:58→15:37)
[2018-06-17] MEDS ORDERED: POTASSIUM CHLOR 10 MEQ/100 ML 10 MEQ/100 ML BAG IV SCH (06:24)
[2018-06-17] MEDS: MAGNESIUM SULFATE 2 GRAM 2 GM/50 ML BAG IV SCH ×2 (06:43→07:03)
[2018-06-17] MEDS ORDERED: ACETYLCYSTEINE 20% 30 ML VIAL INH SCH (07:00)
[2018-06-17] MEDS ORDERED: SODIUM CHLORIDE INHALATION 3 ML NEB INH PRN (07:18)
[2018-06-17] MEDS: ALBUTEROL NEB 2.5 MG/3 ML INH PRN ×2 (07:36→17:55)
[2018-06-17] MEDS: BUDESONIDE 0.5 MG/2 ML NEB INH SCH ×2 (07:36→17:55)
[2018-06-17] MEDS: FORMOTEROL FUMARATE NEB 20 MCG/2 ML INH SCH ×2 (07:36→17:55)
[2018-06-17] MEDS ORDERED: MAGNESIUM SULFATE 2 GRAM 2 GM/50 ML BAG IV ONE (07:48)
[2018-06-17] MEDS ORDERED: POTASSIUM CHLORIDE 20 MEQ TABLET PO ONE (07:50)
[2018-06-17] MEDS: METOPROLOL SUCCINATE 50 MG TABLET PO SCH (08:47)
[2018-06-17] MEDS: TAMSULOSIN 0.4 MG CAPSULE PO SCH (08:47)
[2018-06-17] MEDS: guaiFENesin 600 MG TABLET PO SCH (08:47)
[2018-06-17] MEDS: CALCIUM CITRATE 250 MG TABLET PO SCH (08:47)
[2018-06-17] MEDS: FAMOTIDINE 20 MG TABLET PO SCH ×2 (08:47→21:28)
[2018-06-17] MEDS: LOSARTAN 50 MG TABLET PO SCH (08:48)
[2018-06-17] MEDS: AMIODARONE 200 MG TABLET PO SCH (08:48)
[2018-06-17] MEDS: HEPARIN 5,000 UNIT/ML VIAL SUBQ SCH ×2 (08:49→21:25)
[2018-06-17] MEDS ORDERED: CALCIUM GLUCONATE 2,000 MG in SODIUM CHLORIDE 0.9% 100ML 100 ML IV ONE (09:00)
[2018-06-17] MEDS ORDERED: VANCOMYCIN INJ 1.5 GM in SODIUM CHLORIDE 0.9% 500 ML IV SCH (09:00)
[2018-06-17] MEDS: SODIUM CHLORIDE 0.9% 1,000 ML IV SCH ×2 (09:15→15:37)
[2018-06-17] MEDS: INSULIN ASPART 300 UNIT/3 ML PEN SUBQ SCH ×4 (09:23→21:26)
[2018-06-17] MEDS: POLYETHYLENE GLYCOL 3350 17 GM PACKET PO SCH (09:24)
[2018-06-17] MEDS: VANCOMYCIN INJ 1 GM, VANCOMYCIN INJ 250 MG in SODIUM CHLORIDE 0.9% 250 ML IV SCH ×2 (10:00→21:28)
[2018-06-17] MEDS ORDERED: guaiFENesin 600 MG TABLET PO PRN (10:00)
[2018-06-17] MEDS: CALCIUM CARBONATE CHEW 500 MG TABLET PO SCH ×2 (10:38→21:27)
[2018-06-17] MEDS: MAGNESIUM OXIDE 400 MG TABLET PO SCH (10:38)
[2018-06-17] MEDS: FERROUS SULFATE 325 MG TABLET PO SCH (11:48)
--- NOTE | 2018-06-17 12:00 | PROVIDER PROGRESS NOTE ---
Subjective - Prog Note Date Prog Note Date: 06/17/18 - Subjective Pt reports feeling: Improved Subjective: pt report he feel some improved, he felt better breathing than before. he denies fever, chill, chest pain. Current Medications - Current Medications Current Medications: Active Medications Acetaminophen (Tylenol) 650 mg PO Q4HR PRN PRN Reason: Pain 1 to 4 Albuterol () 2.5 mg INH RTQ4H PRN PRN Reason: Wheezing Last Admin: 06/17/18 07:36 Dose: 2.5 mg Albuterol/Ipratropium (Duoneb) 3 ml INH Q4HR PRN PRN Reason: Wheezing Last Admin: 06/17/18 05:06 Dose: 3 ml Amiodarone HCl (Pacerone) 200 mg PO DAILY [facility] Last Admin: 06/17/18 08:48 Dose: 200 mg Budesonide (Pulmicort) 0.5 mg INH RTBID [facility] Last Admin: 06/17/18 07:36 Dose: 0.5 mg Calcium Carbonate/Glycine (Tums) 500 mg PO BID [facility] Last Admin: 06/17/18 10:38 Dose: 500 mg Calcium Citrate () 250 mg PO DAILY [facility] Last Admin: 06/17/18 08:47 Dose: 250 mg Famotidine (Pepcid) 20 mg PO BID [facility] Last Admin: 06/17/18 08:47 Dose: 20 mg Ferrous Sulfate (Feosol) 325 mg PO DAILY@1200 [facility] Last Admin: 06/17/18 11:48 Dose: 325 mg Formoterol Fumarate (Perforomist) 20 mcg INH RTBID [facility] Last Admin: 06/17/18 07:36 Dose: 20 mcg Guaifenesin (Mucinex) 1,200 mg PO BID PRN PRN Reason: Cough Heparin Sodium (Porcine) () 2,500 unit SUBQ BID [facility] Last Admin: 06/17/18 08:49 Dose: 2,500 unit Cefepime HCl 1 gm/ Sodium (Chloride) 100 mls @ 200 mls/hr IV Q8HR [facility] Last Infusion: 06/17/18 06:37 Dose: Infused Vancomycin HCl 1 gm/Vancomycin HCl 250 mg/ Sodium Chloride 250 mls @ 166.667 mls/hr IV Q12H [facility] Last Infusion: 06/17/18 11:41 Dose: Infused Sodium Chloride (Normal Saline 0.9%) 1,000 mls @ 75 mls/hr IV .[id number] [facility] Stop: 06/18/18 10:31 Last Admin: 06/17/18 09:15 Dose: 75 mls/hr Insulin Aspart (Novolog) 2 - 10 unit SUBQ 0800,1200,1700,2100 [facility]; Protocol Last Admin: 06/17/18 11:48 Dose: 4 unit Losartan Potassium (Cozaar) 50 mg PO DAILY [facility] Last Admin: 06/17/18 08:48 Dose: 50 mg Magnesium Oxide (Mag Ox) 400 mg PO DAILYWM [facility] Last Admin: 06/17/18 10:38 Dose: 400 mg Metoprolol Succinate (Toprol Xl) 100 mg PO DAILY [facility] Last Admin: 06/17/18 08:47 Dose: 100 mg Ondansetron HCl (Zofran Inj) 4 mg IVP Q6HR PRN PRN Reason: Nausea / Vomiting Polyethylene Glycol (Miralax) 17 gm PO DAILY [facility] Last Admin: 06/17/18 09:24 Dose: Not Given Sodium Chloride (Normal Saline Flush 0.9%) 10 ml IVP PRN PRN PRN Reason: NEEDED PER PROVIDER ORDERS Sodium Chloride (Normal Saline Flush 0.9%) 10 ml IVP 0100,0900,1700 [facility] Last Admin: 06/17/18 09:24 Dose: Not Given Sodium Chloride (Normal Saline) 3 ml INH TID PRN PRN Reason: ACETYLCYSTEINE TX Tamsulosin HCl (Flomax) 0.4 mg PO DAILY [facility] Last Admin: 06/17/18 08:47 Dose: 0.4 mg Zolpidem Tartrate (Ambien) 5 mg PO QPM PRN PRN Reason: Insomnia Trazodone HCl 100 mg PO QPM PRN 10/15/12 glipiZIDE [Glucotrol] 20 mg PO BIDAC 10/15/12 Omeprazole [PriLOSEC] 20 mg PO QDAC 04/29/13 SITagliptin [Januvia] 100 mg PO DAILY 02/14/17 Tamsulosin [Flomax] 0.4 mg PO DAILY 02/14/17 Warfarin Sodium [Coumadin] 5 mg PO MOWEFR 02/14/17 Albuterol Sulfate [Proair Hfa Inhaler] 2 puffs INH Q4H PRN 04/05/17 Ipratropium/Albuterol [Duoneb] 3 ml INH QID 04/05/17 Amiodarone [Pacerone] 200 mg PO DAILY 04/19/18 B6/Levomefolate/B12/Ala/If [Abatrex with Ala Tablet] 1 tab PO BID 04/19/18 Ferrous Sulfate 325 mg PO DAILY 04/19/18 Losartan [Cozaar] 50 mg PO DAILY 04/19/18 Metformin HCl 1,000 mg PO BID 04/19/18 Potassium Chloride 10 meq PO DAILY 04/19/18 Amitriptyline [Elavil] 10 mg PO DAILY 06/17/18 Aspirin [Aspirin EC] 81 mg PO DAILY 06/17/18 Atorvastatin Calcium 80 mg PO QPM 06/17/18 Metoprolol Succinate 50 mg PO DAILY 06/17/18 Objective - Vital Signs/Intake & Output Reviewed Vital Signs: Yes Vital Signs: Vital Signs x48h Temp Pulse Pulse Resp BP Pulse Ox 06/17/18 08:06 36.7 C 64 20 109/57 L 98 06/17/18 07:35 71 18 06/17/18 05:09 69 24 06/17/18 04:37 36.8 C 78 18 125/74 97 Intake & Output: Intake & Output 06/14/18 06/15/18 06/16/18 06/17/18 23:59 23:59 23:59 23:59 Intake Total 2770 2860.000 Balance 2770 2860.000 - Objective General Appearance: positive: No acute distress, Alert. negative: Lethargic Eyes Bilateral: positive: Normal inspection, PERRL, No lid inflammation, Conjunctivae nml ENT: positive: ENT inspection nml, Pharynx nml, No signs of dehydration. negative: Purulent nasal drainage, Pharyngeal erythema, Oral lesions Neck: positive: No JVD. negative: Thyromegaly, Lymphadenopathy (L), Stiff neck, Swelling/bruising, Tracheal deviation Respiratory: positive: Chest non-tender, No respiratory distress. negative: Wheezes, Rales Cardiovascular: positive: Regular rate & rhythm, No murmur, No gallop. negative: Irregularly irregular, Extrasystoles, Tachycardia, Bradycardia, JVD present, Systolic murmur, Diastolic murmur Peripheral Pulses: 2+ Radial (R), 2+ Radial (L), 2+ Dorsalis pedis (R), 2+ Dorsalis pedis (L) Abdomen: positive: Non-tender, No organomegaly, Nml bowel sounds, No distention. negative: Tenderness, Guarding, Rebound Back: positive: Nml inspection. negative: CVA tenderness (R), CVA tenderness (L) Skin: positive: Color nml, No rash, Warm, Dry. negative: Cyanosis, Diaphoresis, Pallor Extremities: positive: Non-tender, Full ROM, Nml appearance. negative: Calf tenderness, Joint swelling, Wenceslao's sign/cords Neurologic/Psychiatric: positive: Oriented x3, Motor nml, Sensation nml, Mood/affect nml. negative: Weakness, Sensory loss, Facial droop, Slurred/abnml speech, Depressed mood/affect - Lab Results Fish Bones: 06/17/18 04:44 06/17/18 04:44 Other Labs: Lab Results x24hrs 06/17/18 06/17/18 06/17/18 Range/Units 04:44 04:44 04:44 WBC 7.0 (4.8-10.8) x10^3/uL RBC 3.73 L (4.70-6.10) 10^6/uL Hgb 10.1 L (14.0-18.0) g/dL Hct 31.0 L (42.0-52.0) % MCV 83.0 (80.0-94.0) fL MCH 27.0 (27.0-31.0) pg MCHC 32.6 (32.0-36.0) g/dL RDW 17.0 H (12.0-15.0) % Plt Count 342 (130-450) 10^3/uL MPV 7.4 (7.4-11.4) fL Neut # (Auto) 4.7 (1.5-6.6) 10^3/uL Lymph # (Auto) 1.5 (1.5-3.5) 10^3/uL Ramsey # (Auto) 0.5 (0.0-1.0) 10^3/uL Eos # (Auto) 0.2 (0.0-0.7) 10^3/uL Baso # (Auto) 0.1 (0.0-0.1) 10^3/uL Absolute Nucleated RBC 0.00 x10^3/uL Nucleated RBC % 0.0 /100WBC PT 23.5 H (9.9-12.6) secs INR 2.1 H (0.8-1.2) Sodium 143 (135-145) mmol/L Potassium 3.2 L (3.5-5.0) mmol/L Chloride 109 (101-111) mmol/L Carbon Dioxide 25 (21-32) mmol/L Anion Gap 9.0 (6-13) BUN 16 (6-20) mg/dL Creatinine 1.1 (0.6-1.2) mg/dL Estimated GFR (MDRD) 66 L (>89) Glucose 155 H (70-100) mg/dL Glycated Hemoglobin (4.6-6.2) % Estim Average Glucose (70-100) Lactic Acid (0.5-2.2) mmol/L Calcium 6.7 L (8.5-10.3) mg/dL Magnesium 0.8 L* (1.7-2.8) mg/dL Total Bilirubin 0.2 (0.2-1.0) mg/dL AST 16 (10-42) IU/L ALT 12 (10-60) IU/L Alkaline Phosphatase 66 (42-121) IU/L Troponin I (<0.49) ng/mL B-Natriuretic Peptide (5-100) pg/mL Total Protein 6.1 L (6.7-8.2) g/dL Albumin 3.0 L (3.2-5.5) g/dL Globulin 3.1 (2.1-4.2) g/dL Albumin/Globulin Ratio 1.0 (1.0-2.2) Lipase (22-51) U/L Urine Color Urine Clarity (CLEAR) Urine pH (5.0-7.5) PH Ur Specific [place] (1.002-1.030) Urine Protein (NEGATIVE) mg/dL Urine Glucose (UA) (NEGATIVE) mg/dL Urine Ketones (NEGATIVE) mg/dL Urine Occult Blood (NEGATIVE) Urine Nitrite (NEGATIVE) Urine Bilirubin (NEGATIVE) Urine Urobilinogen (NORMAL) E.U./dL Ur Leukocyte Esterase (NEGATIVE) Ur Microscopic Review Urine Culture Comments 06/16/18 06/16/18 06/16/18 Range/Units 19:05 18:20 18:00 WBC (4.8-10.8) x10^3/uL RBC (4.70-6.10) 10^6/uL Hgb (14.0-18.0) g/dL Hct (42.0-52.0) % MCV (80.0-94.0) fL MCH (27.0-31.0) pg MCHC (32.0-36.0) g/dL RDW (12.0-15.0) % Plt Count (130-450) 10^3/uL MPV (7.4-11.4) fL Neut # (Auto) (1.5-6.6) 10^3/uL Lymph # (Auto) (1.5-3.5) 10^3/uL Ramsey # (Auto) (0.0-1.0) 10^3/uL Eos # (Auto) (0.0-0.7) 10^3/uL Baso # (Auto) (0.0-0.1) 10^3/uL Absolute Nucleated RBC x10^3/uL Nucleated RBC % /100WBC PT 23.7 H (9.9-12.6) secs INR 2.1 H (0.8-1.2) Sodium (135-145) mmol/L Potassium (3.5-5.0) mmol/L Chloride (101-111) mmol/L Carbon Dioxide (21-32) mmol/L Anion Gap (6-13) BUN (6-20) mg/dL Creatinine (0.6-1.2) mg/dL Estimated GFR (MDRD) (>89) Glucose (70-100) mg/dL Glycated Hemoglobin (4.6-6.2) % Estim Average Glucose (70-100) Lactic Acid 2.1 (0.5-2.2) mmol/L Calcium (8.5-10.3) mg/dL Magnesium (1.7-2.8) mg/dL Total Bilirubin (0.2-1.0) mg/dL AST (10-42) IU/L ALT (10-60) IU/L Alkaline Phosphatase (42-121) IU/L Troponin I (<0.49) ng/mL B-Natriuretic Peptide (5-100) pg/mL Total Protein (6.7-8.2) g/dL Albumin (3.2-5.5) g/dL Globulin (2.1-4.2) g/dL Albumin/Globulin Ratio (1.0-2.2) Lipase (22-51) U/L Urine Color YELLOW Urine Clarity CLEAR (CLEAR) Urine pH 5.5 (5.0-7.5) PH Ur Specific [place] 1.015 (1.002-1.030) Urine Protein NEGATIVE (NEGATIVE) mg/dL Urine Glucose (UA) 250 H (NEGATIVE) mg/dL Urine Ketones NEGATIVE (NEGATIVE) mg/dL Urine Occult Blood NEGATIVE (NEGATIVE) Urine Nitrite NEGATIVE (NEGATIVE) Urine Bilirubin NEGATIVE (NEGATIVE) Urine Urobilinogen 0.2 (NORMAL) (NORMAL) E.U./dL Ur Leukocyte Esterase NEGATIVE (NEGATIVE) Ur Microscopic Review NOT INDICATED Urine Culture Comments NOT INDICATED 06/16/18 06/16/18 06/16/18 Range/Units 16:03 16:03 16:03 WBC (4.8-10.8) x10^3/uL RBC (4.70-6.10) 10^6/uL Hgb (14.0-18.0) g/dL Hct (42.0-52.0) % MCV (80.0-94.0) fL MCH (27.0-31.0) pg MCHC (32.0-36.0) g/dL RDW (12.0-15.0) % Plt Count (130-450) 10^3/uL MPV (7.4-11.4) fL Neut # (Auto) (1.5-6.6) 10^3/uL Lymph # (Auto) (1.5-3.5) 10^3/uL [place] # (Auto) (0.0-1.0) 10^3/uL Eos # (Auto) (0.0-0.7) 10^3/uL Baso # (Auto) (0.0-0.1) 10^3/uL Absolute Nucleated RBC x10^3/uL Nucleated RBC % /100WBC PT (9.9-12.6) secs INR (0.8-1.2) Sodium (135-145) mmol/L Potassium (3.5-5.0) mmol/L Chloride (101-111) mmol/L Carbon Dioxide (21-32) mmol/L Anion Gap (6-13) BUN (6-20) mg/dL Creatinine (0.6-1.2) mg/dL Estimated GFR (MDRD) (>89) Glucose (70-100) mg/dL Glycated Hemoglobin 6.5 H (4.6-6.2) % Estim Average Glucose 140 H (70-100) Lactic Acid 3.5 H* (0.5-2.2) mmol/L Calcium (8.5-10.3) mg/dL Magnesium (1.7-2.8) mg/dL Total Bilirubin (0.2-1.0) mg/dL AST (10-42) IU/L ALT (10-60) IU/L Alkaline Phosphatase (42-121) IU/L Troponin I (<0.49) ng/mL B-Natriuretic Peptide 62 (5-100) pg/mL Total Protein (6.7-8.2) g/dL Albumin (3.2-5.5) g/dL Globulin (2.1-4.2) g/dL Albumin/Globulin Ratio (1.0-2.2) Lipase (22-51) U/L Urine Color Urine Clarity (CLEAR) Urine pH (5.0-7.5) PH Ur Specific [place] (1.002-1.030) Urine Protein (NEGATIVE) mg/dL Urine Glucose (UA) (NEGATIVE) mg/dL Urine Ketones (NEGATIVE) mg/dL Urine Occult Blood (NEGATIVE) Urine Nitrite (NEGATIVE) Urine Bilirubin (NEGATIVE) Urine Urobilinogen (NORMAL) E.U./dL Ur Leukocyte Esterase (NEGATIVE) Ur Microscopic Review Urine Culture Comments 06/16/18 06/16/18 06/16/18 Range/Units 16:03 16:03 16:03 WBC 6.8 (4.8-10.8) x10^3/uL RBC 4.02 L (4.70-6.10) 10^6/uL Hgb 11.0 L (14.0-18.0) g/dL Hct 33.5 L (42.0-52.0) % MCV 83.3 (80.0-94.0) fL MCH 27.4 (27.0-31.0) pg MCHC 32.8 (32.0-36.0) g/dL RDW 16.9 H (12.0-15.0) % Plt Count 352 (130-450) 10^3/uL MPV 7.2 L (7.4-11.4) fL Neut # (Auto) 4.9 (1.5-6.6) 10^3/uL Lymph # (Auto) 1.1 L (1.5-3.5) 10^3/uL [place] # (Auto) 0.5 (0.0-1.0) 10^3/uL Eos # (Auto) 0.1 (0.0-0.7) 10^3/uL Baso # (Auto) 0.1 (0.0-0.1) 10^3/uL Absolute Nucleated RBC 0.00 x10^3/uL Nucleated RBC % 0.0 /100WBC PT (9.9-12.6) secs INR (0.8-1.2) Sodium 140 (135-145) mmol/L Potassium 3.8 (3.5-5.0) mmol/L Chloride 99 L (101-111) mmol/L Carbon Dioxide 24 (21-32) mmol/L Anion Gap 17.0 H (6-13) BUN 20 (6-20) mg/dL Creatinine 1.5 H (0.6-1.2) mg/dL Estimated GFR (MDRD) 46 L (>89) Glucose 268 H (70-100) mg/dL Glycated Hemoglobin (4.6-6.2) % Estim Average Glucose (70-100) Lactic Acid (0.5-2.2) mmol/L Calcium 6.2 L* (8.5-10.3) mg/dL Magnesium (1.7-2.8) mg/dL Total Bilirubin 0.3 (0.2-1.0) mg/dL AST 23 (10-42) IU/L ALT 14 (10-60) IU/L Alkaline Phosphatase 77 (42-121) IU/L Troponin I < 0.04 (<0.49) ng/mL B-Natriuretic Peptide (5-100) pg/mL Total Protein 7.3 (6.7-8.2) g/dL Albumin 3.5 (3.2-5.5) g/dL Globulin 3.8 (2.1-4.2) g/dL Albumin/Globulin Ratio 0.9 L (1.0-2.2) Lipase 29 (22-51) U/L Urine Color Urine Clarity (CLEAR) Urine pH (5.0-7.5) PH Ur Specific [place] (1.002-1.030) Urine Protein (NEGATIVE) mg/dL Urine Glucose (UA) (NEGATIVE) mg/dL Urine Ketones (NEGATIVE) mg/dL Urine Occult Blood (NEGATIVE) Urine Nitrite (NEGATIVE) Urine Bilirubin (NEGATIVE) Urine Urobilinogen (NORMAL) E.U./dL Ur Leukocyte Esterase (NEGATIVE) Ur Microscopic Review Urine Culture Comments ABX Reporting Has patient been on IV antibiotics over the past 48 hours?: Yes Sepsis Event Note (H) - Evaluation Current Stage of Sepsis: Sepsis Possible source of Sepsis: positive: Pulmonary - Sepsis Criteria Sepsis Criteria: Recorded Heart Rate greater than 90 bpm, Metabolic: lactate > 2 mmol/L Assessment/Plan - Problem List (1) Pneumonia Impression: 06/17 pt report he felt better breath than yesterday. Pt reduced cough. no fever, chill sputum culture and blood culture are pending continue antibiotics Duoneb and albuterol PRN tracheotomy care recurrent pneumonia. 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 Pt was discharged from [facility] about one week ago, pt is high risk for MRSA. treat with Cefepime and Vancomycin sputum culture blood culture Duoneb and albuterol PRN tracheotomy care with RT (2) Hypocalcemia Conclusion/Plan: 06/17 improved. pt has hx of chronic hypocalcemia. Today Ca is 6.7 continue IV and PO calcium, it is difficult to replace his calcium level continue lab and vital monitor, and tele pt present hx of hypocalcemia, today pt is 6.2. unknown etiology. pt has hx of laryngeal cancer and CKD replacement of Calcium lab monitor calcium level tele monitor now and vital monitor (3) DM type 2 (diabetes mellitus, type 2) Conclusion/Plan: 06/17 controlled glucose level, continue slide scale, ACHS, hypoglycemia protocol. A1C is 6.5 pt did not take insulin at home, elevated blood glucose. slide scale, ACHS hypoglycemia check A1C (4) Dehydration Conclusion/Plan: 06/17 improved, reduced creatinine and BUN as his baseline reduced IVF to 75 cc/h pt present elevated creatinine level and BUN Hydration pt but also precaution fluid overload, pt has hx of systolic heart failure lab and vital monitor (5) Systolic heart failure Conclusion/Plan: 06/17 stable, continue Lisinopril, Metoprolol tele and vital monitor pt appears not presentation of acute heart failure at this time. pt had 40-45% EF at the last ECHO reconcile home meds Lisinopril, Metoprolol tele and vital monitor (6) Elevated lactic acid level Conclusion/Plan: 06/17 improved, reduced to normal level 2.1 after treatment pt has elevated Lactic acid level at 3.5, it seems from pneumonia treat pneumonia with antibiotics recheck Lactic acid level pt has no fever, chill, WBC is normal. closely monitor pt and prevention for sepsis (7) hypomagnesemia Mag is 0.6 today, pt has hx of CKD, unknown etiology, advise pt followup nep hrologist as out-pt replacement of Mag, recheck Mag Qualifiers: Pneumonia type: due to unspecified organism Laterality: left Lung location: lower lobe of lung Qualified Code(s): J18.1 - Lobar pneumonia, unspecified organism
[2018-06-17] MEDS: ATORVASTATIN 40 MG TABLET PO SCH (21:27)
[2018-06-17] MEDS: VITAMIN B COMPLEX PO SCH (21:28)
[2018-06-17] MEDS: ZOLPIDEM 5 MG TABLET PO PRN (21:59)
[2018-06-18] MEDS: SODIUM CHLORIDE FLUSH 0.9% 10 ML SYRINGE IVP SCH ×4 (00:06→23:46)
[2018-06-18] MEDS: diphenhydrAMINE 25 MG CAPSULE PO PRN (00:06)
[2018-06-18] MEDS: IPRATROPIUM/ALBUTEROL 3 ML NEB INH PRN (05:28)
[2018-06-18 06:04] LABS: BASOPHILS # (AUTO) 0.1 10^3/uL (0.0-0.1); BASOPHILS % (AUTO) 1.7 %; EOSINOPHILS # (AUTO) 0.2 10^3/uL (0.0-0.7); EOSINOPHILS % (AUTO) 3.6 %; HGB - HEMOGLOBIN 10.1 g/dL (14.0-18.0); LYMPHOCYTES # (AUTO) 1.4 10^3/uL (1.5-3.5); LYMPHOCYTES % (AUTO) 21.4 %; MEAN CORPUSCULAR HEMOGLOBIN 26.9 pg (27.0-31.0); MEAN CORPUSCULAR HGB CONC 32.1 g/dL (32.0-36.0); MEAN CORPUSCULAR VOLUME 83.8 fL (80.0-94.0); MEAN PLATELET VOLUME 7.6 fL (7.4-11.4); MONOCYTES # (AUTO) 0.6 10^3/uL (0.0-1.0); MONOCYTES % (AUTO) 8.3 %; NEUTROPHILS # (AUTO) 4.4 10^3/uL (1.5-6.6); PLT - PLATELET COUNT 350 10^3/uL (130-450); RED BLOOD COUNT 3.75 10^6/uL (4.70-6.10); WHITE BLOOD COUNT 6.7 x10^3/uL (4.8-10.8)
[2018-06-18 06:09] LABS: INR 1.6 (0.8-1.2); PT - PROTHROMBIN TIME 18.1 secs (9.9-12.6)
[2018-06-18 06:17] LABS: ALBUMIN/GLOBULIN RATIO 0.9 (1.0-2.2); BILIRUBIN,TOTAL 0.5 mg/dL (0.2-1.0); CALCIUM 7.3 mg/dL (8.5-10.3); TOTAL PROTEIN 6.4 g/dL (6.7-8.2)
[2018-06-18] MEDS: CEFEPIME 1 GM in SODIUM CHLORIDE 0.9% MINIBAG 100 ML IV SCH ×3 (06:29→22:41)
[2018-06-18] MEDS: INSULIN ASPART 300 UNIT/3 ML PEN SUBQ SCH ×4 (07:22→21:12)
[2018-06-18] MEDS: ALBUTEROL NEB 2.5 MG/3 ML INH PRN (07:48)
[2018-06-18] MEDS: FORMOTEROL FUMARATE NEB 20 MCG/2 ML INH SCH ×2 (07:48→19:44)
[2018-06-18] MEDS: BUDESONIDE 0.5 MG/2 ML NEB INH SCH ×2 (07:48→19:45)
[2018-06-18] MEDS: CALCIUM CITRATE 250 MG TABLET PO SCH (08:58)
[2018-06-18] MEDS: AMITRIPTYLINE 10 MG TABLET PO SCH (08:58)
[2018-06-18] MEDS: FAMOTIDINE 20 MG TABLET PO SCH ×2 (08:59→21:01)
[2018-06-18] MEDS: POLYETHYLENE GLYCOL 3350 17 GM PACKET PO SCH (08:59)
[2018-06-18] MEDS: ASPIRIN EC 81 MG TABLET PO SCH (08:59)
[2018-06-18] MEDS: DOCUSATE SODIUM 250 MG CAPSULE PO SCH (08:59)
[2018-06-18] MEDS: AMIODARONE 200 MG TABLET PO SCH (08:59)
[2018-06-18] MEDS: WARFARIN 5 MG TABLET PO SCH (08:59)
[2018-06-18] MEDS: MAGNESIUM OXIDE 400 MG TABLET PO SCH ×3 (08:59→18:09)
[2018-06-18] MEDS: SENNA 8.6 MG TABLET PO SCH (08:59)
[2018-06-18] MEDS: LOSARTAN 50 MG TABLET PO SCH (08:59)
[2018-06-18] MEDS: TAMSULOSIN 0.4 MG CAPSULE PO SCH (08:59)
[2018-06-18] MEDS: CALCIUM CARBONATE CHEW 500 MG TABLET PO SCH ×2 (08:59→21:01)
[2018-06-18] MEDS: HEPARIN 5,000 UNIT/ML VIAL SUBQ SCH ×2 (09:00→21:13)
[2018-06-18] MEDS: METOPROLOL SUCCINATE 50 MG TABLET PO SCH (09:00)
[2018-06-18] MEDS: VITAMIN B COMPLEX PO SCH ×2 (09:01→21:19)
[2018-06-18] MEDS: VANCOMYCIN INJ 1 GM, VANCOMYCIN INJ 250 MG in SODIUM CHLORIDE 0.9% 250 ML IV SCH ×2 (09:15→20:57)
[2018-06-18] MEDS: FERROUS SULFATE 325 MG TABLET PO SCH (11:53)
[2018-06-18] MEDS: CHLORHEXIDINE GLUCONATE 15 ML UDC PO SCH ×2 (14:20→21:01)
--- NOTE | 2018-06-18 16:58 | PROVIDER PROGRESS NOTE ---
Subjective - Prog Note Date Prog Note Date: 06/18/18 Prog Note Time: 16:55 - Subjective Pt reports feeling: Improved Subjective: Fernandez complains of more frequent coughing and secretions from his trach. He states that he has not been resting well. He denies chest pain, nausea, bleeding, vomiting, diarrhea, a new rash or dizziness. Current Medications - Current Medications Current Medications: Active Medications: Acetaminophen (Tylenol) 650 mg PO Q4HR PRN Albuterol 2.5 mg INH RTQ4H PRN Albuterol/Ipratropium (Duoneb) 3 ml INH Q4HR PRN Amiodarone HCl (Pacerone) 200 mg PO DAILY [facility] Amitriptyline HCl (Elavil) 10 mg PO DAILY [facility] Aspirin (Ecotrin) 81 mg PO DAILY [facility] Atorvastatin Calcium (Lipitor) 80 mg PO QPM [facility] Budesonide (Pulmicort) 0.5 mg INH RTBID [facility] Calcium Carbonate/Glycine (Tums) 500 mg PO BID [facility] Calcium Citrate 250 mg PO DAILY [facility] Chlorhexidine Gluconate (Peridex) 15 ml PO BID [facility] Diphenhydramine HCl (Benadryl) 25 mg PO QPM PRN Docusate Sodium (Colace 250mg Capsule) 250 - 500 mg PO DAILY [facility] Famotidine (Pepcid) 20 mg PO BID [facility] Ferrous Sulfate (Feosol) 325 mg PO DAILY@1200 [facility] Formoterol Fumarate (Perforomist) 20 mcg INH RTBID [facility] Guaifenesin (Mucinex) 1,200 mg PO BID PRN Heparin Sodium (Porcine) 2,500 unit SUBQ BID [facility] Vancomycin HCl 1 gm/Vancomycin HCl 250 mg/ Sodium Chloride 250 mls @ 166.667 mls/hr IV Q12H [facility] Cefepime HCl 1 gm/ Sodium (Chloride) 100 mls @ 200 mls/hr IV Q8H [facility] Insulin Aspart (Novolog) 2 - 10 unit SUBQ 0800,1200,1700,2100 [facility]; Protocol Losartan Potassium (Cozaar) 50 mg PO DAILY [facility] Magnesium Oxide (Mag Ox) 800 mg PO BIDWM [facility] Metoprolol Succinate (Toprol Xl) 100 mg PO DAILY [facility] Ondansetron HCl (Zofran Inj) 4 mg IVP Q6HR PRN Vitamin B Complex 1 each PO BID [facility] Polyethylene Glycol (Miralax) 17 gm PO DAILY [facility] Senna (Senokot) 8.6 - 17.2 mg PO DAILY [facility] Tamsulosin HCl (Flomax) 0.4 mg PO DAILY [facility] Warfarin Sodium (Coumadin) 5 mg PO DAILY [facility] Zolpidem Tartrate (Ambien) 5 mg PO QPM PRN HOME meds: SITagliptin [Januvia] 100 mg PO DAILY 02/14/17 Warfarin Sodium [Coumadin] 5 mg PO DAILY 02/14/17 Albuterol Sulfate [Proair Hfa Inhaler] 2 puffs INH Q4H PRN 04/05/17 B6/Levomefolate/B12/Ala/If [Abatrex with Ala Tablet] 1 tab PO BID 04/19/18 Ferrous Sulfate 325 mg PO DAILY 04/19/18 Losartan [Cozaar] 50 mg PO DAILY 04/19/18 Metformin HCl 1,000 mg PO BID 04/19/18 Amitriptyline [Elavil] 10 mg PO DAILY 06/17/18 Aspirin [Aspirin EC] 81 mg PO DAILY 06/17/18 Atorvastatin Calcium 80 mg PO QPM 06/17/18 Metoprolol Succinate 100 mg PO DAILY 06/17/18 Objective - Vital Signs/Intake & Output Reviewed Vital Signs: Yes Vital Signs: Vital Signs x48h Temp Pulse Resp BP Pulse Ox 06/18/18 15:24 36.4 C L 61 22 107/88 H 99 06/18/18 13:00 36.5 C 62 22 129/55 L 99 Intake & Output: Intake & Output 06/15/18 06/16/18 06/17/18 06/18/18 23:59 23:59 23:59 23:59 Intake Total 2770 4937.500 3280 Balance 2770 4937.500 3280 - Objective General Appearance: positive: Alert, Mild distress, Anxious Eyes Bilateral: positive: PERRL Eyes: OU Conjunctivae pale ENT: positive: Pharyngeal erythema, Dry mucous membranes, Other (established tracheostomy, soiled, unkept with moderate copious drainage) Neck: positive: No JVD, Trachea midline, Lymphadenopathy (R), Lymphadenopathy (L) Respiratory: positive: Chest non-tender, Wheezes, Rhonchi Cardiovascular: positive: Regular rate & rhythm, Irregularly irregular, Systolic murmur, Decreased pulse(s) Peripheral Pulses: 1+ Radial (R), 1+ Radial (L) Abdomen: positive: Non-tender, Nml bowel sounds Back: positive: Nml inspection Skin: positive: No rash, Warm, Dry, Pallor Extremities: positive: Non-tender, Full ROM, Nml appearance, Pedal edema, Joint swelling Neurologic/Psychiatric: positive: Oriented x3, CN's nml (2-12), Weakness, S ensory loss, Slurred/abnml speech (speech impaired related to trach), Depressed mood/affect, Other Reflexes: Bicep (R): 2+, Bicep (L): 2+ - Lab Results Fish Bones: 06/18/18 04:50 06/18/18 04:50 Other Labs: Lab Results x24hrs 06/18/18 06/18/18 06/18/18 Range/Units 04:50 04:50 04:50 WBC 6.7 (4.8-10.8) x10^3/uL RBC 3.75 L (4.70-6.10) 10^6/uL Hgb 10.1 L (14.0-18.0) g/dL Hct 31.4 L (42.0-52.0) % MCV 83.8 (80.0-94.0) fL MCH 26.9 L (27.0-31.0) pg MCHC 32.1 (32.0-36.0) g/dL RDW 17.0 H (12.0-15.0) % Plt Count 350 (130-450) 10^3/uL MPV 7.6 (7.4-11.4) fL Neut # (Auto) 4.4 (1.5-6.6) 10^3/uL Lymph # (Auto) 1.4 L (1.5-3.5) 10^3/uL [place] # (Auto) 0.6 (0.0-1.0) 10^3/uL Eos # (Auto) 0.2 (0.0-0.7) 10^3/uL Baso # (Auto) 0.1 (0.0-0.1) 10^3/uL Absolute Nucleated RBC 0.00 x10^3/uL Nucleated RBC % 0.1 /100WBC PT 18.1 H (9.9-12.6) secs INR 1.6 H (0.8-1.2) Sodium 139 (135-145) mmol/L Potassium 3.7 (3.5-5.0) mmol/L Chloride 108 (101-111) mmol/L Carbon Dioxide 24 (21-32) mmol/L Anion Gap 7.0 (6-13) BUN 12 (6-20) mg/dL Creatinine 1.0 (0.6-1.2) mg/dL Estimated GFR (MDRD) 73 L (>89) Glucose 138 H (70-100) mg/dL Calcium 7.3 L (8.5-10.3) mg/dL Total Bilirubin 0.5 (0.2-1.0) mg/dL AST 16 (10-42) IU/L ALT 13 (10-60) IU/L Alkaline Phosphatase 74 (42-121) IU/L Total Protein 6.4 L (6.7-8.2) g/dL Albumin 3.0 L (3.2-5.5) g/dL Globulin 3.4 (2.1-4.2) g/dL Albumin/Globulin Ratio 0.9 L (1.0-2.2) ABX Reporting Has patient been on IV antibiotics over the past 48 hours?: Yes Sepsis Event Note (H) - Evaluation Current Stage of Sepsis: Resolved Possible source of Sepsis: positive: Pulmonary - Sepsis Criteria Sepsis Criteria: Recorded Heart Rate greater than 90 bpm, Metabolic: lactate > 2 mmol/L Assessment/Plan - Problem List (1) Left lower lobe pneumonia Impression: The patient states that he just had pneumonia 2 weeks ago. On exam he has expiratory wheezing and claims that his usual trach care has been not good with getting him the supplies necessary to properly take care of his permanent trache ostomy that he has had for the past 10+ years. He states that is cough has increased. He has had increased sputum, and has had to sleep in the recliner. He has been started on Cefepime and vanco on admission that is continued here. Final sputum culture is pending. Plan: Continue IV antibiotics, respiratory care, order or RT to change trach device at the bedside, routine trach care as per nursing, chlorhexidene scheduled to prevent VAP. (2) Dyspnea Impression: The patient complains that he has been more short of breath for the past month after having pneumonia now for the second time in 2 weeks. I suspect this is caused by his trach as the source of infection. Plan: Provide oxygen, nebulizers, respiratory care. Qualifiers: Dyspnea type: shortness of breath Qualified Code(s): R06.02 - Shortness of breath (3) COPD (chronic obstructive pulmonary disease) Impression: The patient has this as a consequence of his life long smoking. He is prescribed chronic oxygen, but continues to smoke at home. He is getting budesinide, duo-nebs and no steroids. Plan: Add steroids for lack of improvement. (4) Dependence on continuous supplemental oxygen Impression: The patient states that he has been dependent on oxygen for the past several years and continues to smoke at home. Plan: Continue oxygen, monitor vitals. (5) Tracheostomy present Impression: The patient states that has an ENT in [place], and has not had his trach changed in about 4 years. His current trach is not functional and the clip that locks the inner trach in place is not functioning. Also, since he has had recurrent pneumonia, he needs to have his trach changed for this hospital stay. I have put in orders as to the specific type of trach to be used, so I will contact nursing steamfitter supervisor to see about obtaining the correct supply. Plan: Await trach placement to ensure recovery from this pneumonia. (6) Laryngeal cancer Impression: The patient states that he had cancer ~10 years ago, which led to his permanent tracheostomy. He is able to speak by covering his trach opening, and his device appears very dirty and unkept. Plan: Routine nursing trach care, respiratory therapy. (7) Generalized weakness Impression: The patient states that he fears that he will not be able to live on his own since being profoundly weak with this pneumonia. He states that he does not want to be a bother to his family with his extra care. He states that in the past, he has stayed at [facility] for rehab. Plan: PT prior to discharge for possible rehab. (8) Hypertension Impression: The patient is status post CABG and has an ICD in his left upper chest. He has long standing HTN and is prescribed losartan, metoprolol and ASA at home which is continued here. Plan: continue to monitor VS, continue meds. Qualifiers: Hypertension type: essential hypertension Qualified Code(s): I10 - Essential (primary) hypertension (9) S/P CABG (coronary artery bypass graft) Impression: The patient had this done at the [facility] and had a vessel harvested from his LLE. Cardiology records shows he is status post a 3-vessel CABG in 05/2012. He likely developed CAD from having DM, life long smoking, uncontrolled HTN and advanced age. Plan: Continue his statin, ASA, and control B/P and heart rate. (10) ICD (implantable cardioverter-defibrillator) in place Impression: The patient states that he has this and on exam has a right device that is easily appreciated in his left upper chest. (11) Benign prostatic hyperplasia Impression: The patient complains of nocturia, frequency and urgency that has been this way for several years. Plan: Provider urinal, monitor urine output. 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 He continues to smoke despite his vascular disease, 3-vessel CABG, laryngeal CA, chronic oxygen dependence, and tracheostomy. Plan: Offer nicotine patch as needed. Qualifiers: Nicotine product type: cigarettes (13) Diabetes mellitus type 2 with atherosclerosis of arteries of extremities Impression: The patient is prescribed Juaunivia and metformin at home, with a hemoglobin A1C of 6.5%. He is now on SSI and blood sugar checks. Plan: Monitor sugars. (14) Chronic iron deficiency anemia Impression: The patient takes home iron supplement. He had this listed in his history. H/H today was 10.1/31.4. Plan: Continue iron, monitor labs. (15) Chronic low back pain Impression: The patient takes amytriptiline at home, which is continued here. He remains in the chair and on exam denies pain. Plan: Continue to monitor pain, continue home meds. (16) GERD (gastroesophageal reflux disease) Impression: The patient has this and takes no PPIs or H2 blockers at home. On exam he denies nausea, vomiting and is tolerating his meals. Plan: Continue to monitor. (17) CHAYITO (obstructive sleep apnea) Impression: The patient had this in his history that is likely no longer an issue since having a tracheostomy. Plan: continue trach care. (18) Myocardial infarct, old Impression: The patient has a history of this, which occurred in May of 2012. He is status post REINOSO graft to LAD, saphenous vein graft to OMB2 with sequential grafting to PDA. He had a follow up coronary angiogram in 06/2013, showing stability. Plan: Continue home meds, continue anticoagulation. (19) Atrial fibrillation Impression: The patient is prescribed warfarin at home and on admission was found to be sub- theraputic. Initial EKG was marked as sinus, but I disagree. It has no P waves, is irregular. He is anticoagulated with warfarin. Plan: Continue beta mehran, continue blood thinners. Qualifiers: Atrial fibrillation type: chronic Qualified Code(s): I48.2 - Chronic atrial fibrillation (20) Cardiomyopathy Impression: There is evidence of cardiomyopathy on his last EKG with having a very tall QRS, wide complexes. His last cardiology note spoke of his last EF being ~20%, and consequently has an ICD. Plan: Await echo in the AM. (21) CKD (chronic kidney disease) stage 2, GFR 60-89 ml/min Impression: After reviewing the chart the patient has a GFR of 60-70 and is at risk for worsening kidney function with the treatment of this acute illness. Plan: Continue daily labs, avoid NSAIDS, nephrotoxins.
[2018-06-18] MEDS ORDERED: VANCOMYCIN 1 GM VIAL ONE (20:24)
[2018-06-18] MEDS ORDERED: VANCOMYCIN 500 MG VIAL ONE (20:56)
[2018-06-18] MEDS ORDERED: SODIUM CHLORIDE 0.9% 250 ML IV ONE (20:56)
[2018-06-18] MEDS: ATORVASTATIN 40 MG TABLET PO SCH (21:01)
[2018-06-18] MEDS: ZOLPIDEM 5 MG TABLET PO PRN (22:42)
[2018-06-19] MEDS: diphenhydrAMINE 25 MG CAPSULE PO PRN ×2 (00:03→21:58)
[2018-06-19 05:31] LABS: BASOPHILS # (AUTO) 0.1 10^3/uL (0.0-0.1); BASOPHILS % (AUTO) 2.3 %; EOSINOPHILS # (AUTO) 0.3 10^3/uL (0.0-0.7); EOSINOPHILS % (AUTO) 4.3 %; HGB - HEMOGLOBIN 9.8 g/dL (14.0-18.0); LYMPHOCYTES # (AUTO) 1.3 10^3/uL (1.5-3.5); MEAN CORPUSCULAR HEMOGLOBIN 26.5 pg (27.0-31.0); MEAN CORPUSCULAR HGB CONC 31.5 g/dL (32.0-36.0); MEAN PLATELET VOLUME 7.2 fL (7.4-11.4); MONOCYTES # (AUTO) 0.6 10^3/uL (0.0-1.0); MONOCYTES % (AUTO) 9.8 %; NEUTROPHILS # (AUTO) 4.1 10^3/uL (1.5-6.6); NEUTROPHILS % (AUTO) 63.6 %; PLT - PLATELET COUNT 314 10^3/uL (130-450); RED CELL DISTRIBUTION WIDTH 16.4 % (12.0-15.0); WHITE BLOOD COUNT 6.4 x10^3/uL (4.8-10.8)
[2018-06-19 05:37] LABS: INR 1.3 (0.8-1.2); PT - PROTHROMBIN TIME 14.6 secs (9.9-12.6)
[2018-06-19 05:43] LABS: ALBUMIN 3.1 g/dL (3.2-5.5); ALBUMIN/GLOBULIN RATIO 0.9 (1.0-2.2); BILIRUBIN,TOTAL 0.6 mg/dL (0.2-1.0); CALCIUM 8.1 mg/dL (8.5-10.3); CREATININE 0.9 mg/dL (0.6-1.2); TOTAL PROTEIN 6.5 g/dL (6.7-8.2)
[2018-06-19] MEDS: CEFEPIME 1 GM in SODIUM CHLORIDE 0.9% MINIBAG 100 ML IV SCH ×3 (05:51→21:58)
[2018-06-19] MEDS: SODIUM CHLORIDE FLUSH 0.9% 10 ML SYRINGE IVP PRN ×2 (05:53→14:24)
[2018-06-19] MEDS: ALBUTEROL NEB 2.5 MG/3 ML INH PRN (07:08)
[2018-06-19] MEDS: BUDESONIDE 0.5 MG/2 ML NEB INH SCH ×2 (07:08→20:27)
[2018-06-19] MEDS: FORMOTEROL FUMARATE NEB 20 MCG/2 ML INH SCH ×2 (07:08→20:27)
[2018-06-19] MEDS: INSULIN ASPART 300 UNIT/3 ML PEN SUBQ SCH ×2 (08:02→12:00)
[2018-06-19] MEDS: SENNA 8.6 MG TABLET PO SCH (08:04)
[2018-06-19] MEDS ORDERED: METOPROLOL SUCCINATE 50 MG TABLET PO SCH (09:00)
[2018-06-19 09:50] LABS: VANCOMYCIN,TROUGH 26.5 ug/mL (10.0-20.0)
[2018-06-19] MEDS: VITAMIN B COMPLEX PO SCH ×2 (09:52→22:20)
[2018-06-19] MEDS: HEPARIN 5,000 UNIT/ML VIAL SUBQ SCH ×2 (10:05→22:12)
[2018-06-19] MEDS: CALCIUM CITRATE 250 MG TABLET PO SCH (10:06)
[2018-06-19] MEDS: DOCUSATE SODIUM 250 MG CAPSULE PO SCH (10:06)
[2018-06-19] MEDS: AMIODARONE 200 MG TABLET PO SCH (10:06)
[2018-06-19] MEDS: METOPROLOL SUCCINATE 50 MG TABLET PO SCH (10:06)
[2018-06-19] MEDS: CALCIUM CARBONATE CHEW 500 MG TABLET PO SCH ×2 (10:06→21:57)
[2018-06-19] MEDS: TAMSULOSIN 0.4 MG CAPSULE PO SCH (10:06)
[2018-06-19] MEDS: LOSARTAN 50 MG TABLET PO SCH (10:06)
[2018-06-19] MEDS: CHLORHEXIDINE GLUCONATE 15 ML UDC PO SCH ×2 (10:07→21:56)
[2018-06-19] MEDS: ASPIRIN EC 81 MG TABLET PO SCH (10:07)
[2018-06-19] MEDS: POLYETHYLENE GLYCOL 3350 17 GM PACKET PO SCH (10:07)
[2018-06-19] MEDS: AMITRIPTYLINE 10 MG TABLET PO SCH (10:07)
[2018-06-19] MEDS: MAGNESIUM OXIDE 400 MG TABLET PO SCH ×2 (10:07→16:37)
[2018-06-19] MEDS: FAMOTIDINE 20 MG TABLET PO SCH ×2 (10:07→21:57)
[2018-06-19] MEDS: SODIUM CHLORIDE FLUSH 0.9% 10 ML SYRINGE IVP SCH ×2 (10:07→16:38)
[2018-06-19] MEDS: WARFARIN 5 MG TABLET PO SCH (10:08)
[2018-06-19] MEDS: FERROUS SULFATE 325 MG TABLET PO SCH (12:23)
[2018-06-19] MEDS: VANCOMYCIN INJ 1 GM, VANCOMYCIN INJ 250 MG in SODIUM CHLORIDE 0.9% 250 ML IV SCH (12:24)
--- NOTE | 2018-06-19 13:19 | PROVIDER PROGRESS NOTE ---
Subjective - Prog Note Date Prog Note Date: 06/19/18 Prog Note Time: 13:17 - Subjective Pt reports feeling: Improved, No change Subjective: Fernandez complains of sinus pressure, ongoing insomnia, and little improvement in his breathing. He denies new symptoms such as chest pain, chest pressure, nausea, vomiting, diarrhea, or a new rash. Fernandez is happy with his new trach and explains that he will need to get used to the capped feature. Current Medications - Current Medications Current Medications: Active Medications: Acetaminophen (Tylenol) 650 mg PO Q4HR PRN PRN Reason: Pain 1 to 4 Albuterol () 2.5 mg INH RTQ4H PRN PRN Reason: Wheezing Last Admin: 06/19/18 07:08 Dose: 2.5 mg Albuterol/Ipratropium (Duoneb) 3 ml INH Q4HR PRN PRN Reason: Wheezing Last Admin: 06/18/18 05:28 Dose: 3 ml Amiodarone HCl (Pacerone) 200 mg PO DAILY [facility] Last Admin: 06/19/18 10:06 Dose: 200 mg Amitriptyline HCl (Elavil) 10 mg PO DAILY [facility] Last Admin: 06/19/18 10:07 Dose: 10 mg Aspirin (Ecotrin) 81 mg PO DAILY [facility] Last Admin: 06/19/18 10:07 Dose: 81 mg Atorvastatin Calcium (Lipitor) 80 mg PO QPM [facility] Last Admin: 06/19/18 21:57 Dose: 80 mg Budesonide (Pulmicort) 0.5 mg INH RTBID [facility] Last Admin: 06/19/18 20:27 Dose: 0.5 mg Calcium Carbonate/Glycine (Tums) 500 mg PO BID [facility] Last Admin: 06/19/18 21:57 Dose: 500 mg Calcium Citrate () 250 mg PO DAILY [facility] Last Admin: 06/19/18 10:06 Dose: 250 mg Chlorhexidine Gluconate (Peridex) 15 ml PO BID [facility] Last Admin: 06/19/18 21:56 Dose: 15 ml Diphenhydramine HCl (Benadryl) 25 mg PO QPM PRN PRN Reason: Insomnia Last Admin: 06/19/18 21:58 Dose: 25 mg Docusate Sodium (Colace 250mg Capsule) 250 - 500 mg PO DAILY [facility] Last Admin: 01/30/19 10:06 Dose: 250 mg Famotidine (Pepcid) 20 mg PO BID [facility] Last Admin: 06/19/18 21:57 Dose: 20 mg Ferrous Sulfate (Feosol) 325 mg PO DAILY@1200 [facility] Last Admin: 06/19/18 12:23 Dose: 325 mg Fluticasone Propionate (Flonase) 1 sprays SINTIA DAILY [facility] Formoterol Fumarate (Perforomist) 20 mcg INH RTBID [facility] Last Admin: 06/19/18 20:27 Dose: 20 mcg Guaifenesin (Mucinex) 600 mg PO BID PRN PRN Reason: Cough Heparin Sodium (Porcine) () 2,500 unit SUBQ BID [facility] Last Admin: 06/19/18 22:12 Dose: 2,500 unit Cefepime HCl 1 gm/ Sodium (Chloride) 100 mls @ 200 mls/hr IV Q8H [facility] Last Admin: 06/19/18 21:58 Dose: 200 mls/hr Losartan Potassium (Cozaar) 50 mg PO DAILY [facility] Last Admin: 06/19/18 10:06 Dose: 50 mg Magnesium Oxide (Mag Ox) 800 mg PO BIDWM [facility] Last Admin: 06/19/18 16:37 Dose: 800 mg Methylprednisolone (Solu-Medrol (40mg Vial)) 40 mg IVP TID [facility] Last Admin: 06/19/18 21:57 Dose: 40 mg Metoprolol Succinate (Toprol Xl) 100 mg PO DAILY [facility] Ondansetron HCl (Zofran Inj) 4 mg IVP Q6HR PRN PRN Reason: Nausea / Vomiting Oxymetazoline HCl (Afrin) 2 sprays SINTIA BID [facility] Stop: 06/22/18 13:59 Last Admin: 06/19/18 22:03 Dose: 1 spr Patient Own Med ( (Vitamin B Complex)) 1 each PO BID [facility] Last Admin: 06/19/18 22:20 Dose: Not Given Polyethylene Glycol (Miralax) 17 gm PO DAILY [facility] Last Admin: 06/19/18 10:07 Dose: 17 gm Saccharomyces Boulardii (Florastor) 250 mg PO BIDWM [facility] Last Admin: 06/19/18 16:36 Dose: 250 mg Senna (Senokot) 8.6 - 17.2 mg PO DAILY [facility] Last Admin: 06/19/18 08:04 Dose: Not Given Sodium Chloride (Normal Saline) 3 ml INH TID PRN PRN Reason: ACETYLCYSTEINE TX Tamsulosin HCl (Flomax) 0.4 mg PO DAILY [facility] Last Admin: 06/19/18 10:06 Dose: 0.4 mg Trazodone HCl (Desyrel) 50 mg PO QPM [facility] Last Admin: 06/19/18 22:03 Dose: 50 mg Warfarin Sodium (Coumadin) 5 mg PO DAILY [facility] Last Admin: 06/19/18 10:08 Dose: 5 mg HOME meds: SITagliptin [Januvia] 100 mg PO DAILY 02/14/17 Warfarin Sodium [Coumadin] 5 mg PO DAILY 02/14/17 Albuterol Sulfate [Proair Hfa Inhaler] 2 puffs INH Q4H PRN 04/05/17 B6/Levomefolate/B12/Ala/If [Abatrex with Ala Tablet] 1 tab PO BID 04/19/18 Ferrous Sulfate 325 mg PO DAILY 04/19/18 Losartan [Cozaar] 50 mg PO DAILY 04/19/18 Metformin HCl 1,000 mg PO BID 04/19/18 Amitriptyline [Elavil] 10 mg PO DAILY 06/17/18 Aspirin [Aspirin EC] 81 mg PO DAILY 06/17/18 Atorvastatin Calcium 80 mg PO QPM 06/17/18 Metoprolol Succinate 100 mg PO DAILY 06/17/18 Objective - Vital Signs/Intake & Output Reviewed Vital Signs: Yes Vital Signs: Vital Signs x48h Temp Pulse Pulse Resp BP Pulse Ox 06/19/18 12:25 36.8 C 65 20 140/59 H 98 06/19/18 09:00 36.8 C 86 18 115/47 L 98 06/19/18 07:11 60 18 Intake & Output: Intake & Output 06/16/18 06/17/18 06/18/18 06/19/18 23:59 23:59 23:59 23:59 Intake Total 2770 4937.500 4560 1560 Output Total 550 Balance 2770 4937.500 4560 1010 - Objective General Appearance: positive: Alert, Moderate distress Eyes Bilateral: positive: PERRL Eyes: OU Conjunctivae pale ENT: positive: Pharyngeal erythema, Dry mucous membranes, Other (trach is mid line and appears unkept, with yellow-forrester drainage.) Neck: positive: No JVD, Trachea midline, Other (midline tracheostomy appears unkept, soiled yellow drainage Now with a new capped trach, clean dry and much improved appearance.) Respiratory: positive: Chest non-tender, No respiratory distress, Wheezes, Rhonchi Cardiovascular: positive: Regular rate & rhythm, No gallop, Systolic murmur, Decreased pulse(s) Peripheral Pulses: 1+ Radial (R), 1+ Radial (L) Abdomen: positive: Non-tender, Nml bowel sounds Back: positive: Nml inspection Skin: positive: No rash, Warm, Dry, Pallor Extremities: positive: Non-tender, Full ROM, No pedal edema Neurologic/Psychiatric: positive: Oriented x3, CN's nml (2-12), Motor nml, Weakness, Slurred/abnml speech, Depressed mood/affect, Other (plugs trach to speak) Reflexes: Bicep (R): 3+, Bicep (L): 3+ - Lab Results Fish Bones: 06/19/18 05:25 06/19/18 05:25 Other Labs: Lab Results x24hrs 06/19/18 06/19/18 06/19/18 Range/Units 08:45 05:25 05:25 WBC (4.8-10.8) x10^3/uL RBC (4.70-6.10) 10^6/uL Hgb (14.0-18.0) g/dL Hct (42.0-52.0) % MCV (80.0-94.0) fL MCH (27.0-31.0) pg MCHC (32.0-36.0) g/dL RDW (12.0-15.0) % Plt Count (130-450) 10^3/uL MPV (7.4-11.4) fL Neut # (Auto) (1.5-6.6) 10^3/uL Lymph # (Auto) (1.5-3.5) 10^3/uL [place] # (Auto) (0.0-1.0) 10^3/uL Eos # (Auto) (0.0-0.7) 10^3/uL Baso # (Auto) (0.0-0.1) 10^3/uL Absolute Nucleated RBC x10^3/uL Nucleated RBC % /100WBC PT 14.6 H (9.9-12.6) secs INR 1.3 H (0.8-1.2) Sodium 142 (135-145) mmol/L Potassium 3.9 (3.5-5.0) mmol/L Chloride 109 (101-111) mmol/L Carbon Dioxide 26 (21-32) mmol/L Anion Gap 7.0 (6-13) BUN 11 (6-20) mg/dL Creatinine 0.9 (0.6-1.2) mg/dL Estimated GFR (MDRD) 83 L (>89) Glucose 126 H (70-100) mg/dL Calcium 8.1 L (8.5-10.3) mg/dL Total Bilirubin 0.6 (0.2-1.0) mg/dL AST 18 (10-42) IU/L ALT 14 (10-60) IU/L Alkaline Phosphatase 72 (42-121) IU/L Total Protein 6.5 L (6.7-8.2) g/dL Albumin 3.1 L (3.2-5.5) g/dL Globulin 3.4 (2.1-4.2) g/dL Albumin/Globulin Ratio 0.9 L (1.0-2.2) Last Dose Date 06/18/18 Last Dose Time 2243 Vancomycin Trough 26.5 H* (10.0-20.0) ug/mL 06/19/18 Range/Units 05:25 WBC 6.4 (4.8-10.8) x10^3/uL RBC 3.70 L (4.70-6.10) 10^6/uL Hgb 9.8 L (14.0-18.0) g/dL Hct 31.1 L (42.0-52.0) % MCV 84.0 (80.0-94.0) fL MCH 26.5 L (27.0-31.0) pg MCHC 31.5 L (32.0-36.0) g/dL RDW 16.4 H (12.0-15.0) % Plt Count 314 (130-450) 10^3/uL MPV 7.2 L (7.4-11.4) fL Neut # (Auto) 4.1 (1.5-6.6) 10^3/uL Lymph # (Auto) 1.3 L (1.5-3.5) 10^3/uL [place] # (Auto) 0.6 (0.0-1.0) 10^3/uL Eos # (Auto) 0.3 (0.0-0.7) 10^3/uL Baso # (Auto) 0.1 (0.0-0.1) 10^3/uL Absolute Nucleated RBC 0.00 x10^3/uL Nucleated RBC % 0.0 /100WBC PT (9.9-12.6) secs INR (0.8-1.2) Sodium (135-145) mmol/L Potassium (3.5-5.0) mmol/L Chloride (101-111) mmol/L Carbon Dioxide (21-32) mmol/L Anion Gap (6-13) BUN (6-20) mg/dL Creatinine (0.6-1.2) mg/dL Estimated GFR (MDRD) (>89) Glucose (70-100) mg/dL Calcium (8.5-10.3) mg/dL Total Bilirubin (0.2-1.0) mg/dL AST (10-42) IU/L ALT (10-60) IU/L Alkaline Phosphatase (42-121) IU/L Total Protein (6.7-8.2) g/dL Albumin (3.2-5.5) g/dL Globulin (2.1-4.2) g/dL Albumin/Globulin Ratio (1.0-2.2) Last Dose Date Last Dose Time Vancomycin Trough (10.0-20.0) ug/mL ABX Reporting Has patient been on IV antibiotics over the past 48 hours?: Yes Sepsis Event Note (H) - Evaluation Current Stage of Sepsis: Resolved Possible source of Sepsis: positive: Pulmonary - Sepsis Criteria Sepsis Criteria: Recorded Heart Rate greater than 90 bpm, Metabolic: lactate > 2 mmol/L Assessment/Plan - Problem List (1) Left lower lobe pneumonia Impression: A sputum culture from the time of admission shows Klebsiella and Proteus, so Vancomycin can be discontinued since Cefepime is sensitive to both of these pathogens. Final sensitivities are not back. His condition is not generally improved, so I have added low dose steroid given his COPD. Plan: Continue IV Cefepime, IV solumedrol at 40mg TID, and give the patient a new trach. Qualifiers: Pneumonia type: due to Klebsiella pneumoniae Qualified Code(s): J15.0 - Pneumonia due to Klebsiella pneumoniae (2) Dyspnea Impression: The patient complains that he has been more short of breath for the past month after having pneumonia now for the second time in 2 weeks. I suspect this is caused by his trach as the source of infection. Today, our respiratory therapy department was able to find a new tracheostomy, similar in size and function. This was provided to the patient and came with a cap to prevent the patient from continually touching his trach in order to speak. Plan: Provide oxygen, nebulizers, continue low dose IV steroid, respiratory care. Qualifiers: Dyspnea type: shortness of breath Qualified Code(s): R06.02 - Shortness of breath (3) COPD (chronic obstructive pulmonary disease) Impression: The patient has this as a consequence of his life long smoking. He is prescribed chronic oxygen, but continues to smoke at home. He is getting budesinide, duo-nebs and no steroids. Plan: Continue IV solumedrol, routine nebs including a LAMA, LABA, and albuterol, monitor new type of tracheostomy, continue to treat with IV cefepime. Qualifiers: COPD type: COPD with acute lower respiratory infection Qualified Code(s): J44.0 - Chronic obstructive pulmonary disease with acute lower respiratory infection (4) Dependence on continuous supplemental oxygen Impression: The patient states that he has been dependent on oxygen for the past several years and continues to smoke at home. Today, during his exam, I noticed that his tubing was very soiled, so this was changed out with a new nasal cannula. He states that his usual dose of oxygen is 2-3L at home. He has been on 3-4L nasal cannula, but may need more overnight as he gets used to his new capped trach. Plan: Continue oxygen, monitor vitals. (5) Tracheostomy present Impression: The patient states that has an ENT in [place], and has not had his trach changed in about 4 years. His trach was not functional and the clip that locks the inner trach in place was not functioning. Also, since he has had recurrent pneumonia, he needs to have his trach changed for this hospital stay because he has a terrible habit of touching his finger to block the whole in order to speak. Our wonderful respiratory team found a new tracheostomy which was similar to his current one, which was changed. It is now fenestrated, which was explained to the patient and encouraged to leave the cap on. Plan: Monitor new trach as it is capped to prevent him from touching it so much, which is new for him. No further need for humidification, continue nasal cannula. (6) Laryngeal cancer Impression: The patient states that he had cancer ~10 years ago, which led to his permanent tracheostomy. He was able to speak by covering his old trach opening, but today he was provided with a new device that is fenestrated and capped to allow more air to flow past his vocal cords. This will hopefully lead to less incidences of pneumonia likely caused by his contaminated fingers that were used to block the air from escaping while he jibber jabbers away. Plan: Routine nursing trach care to ensure continual cleanliness, Peridex mouth care per nursing or RT, respiratory therapy. (7) Generalized weakness Impression: The patient states that he fears that he will not be able to live on his own since being profoundly weak with this pneumonia. He states that he does not want to be a bother to his family with his extra care. He states that in the past, he has stayed at [facility] for rehab. Plan: PT prior to discharge for possible rehab. This order was placed late today in the event he is medically stable by tomorrow. (8) Hypertension Impression: The patient is status post CABG and has an ICD in his left upper chest. He has long standing HTN and is prescribed losartan, metoprolol and ASA at home which is continued here. Today blood pressure was charted as 140/59, heart rates ~60- 70's. Plan: continue to monitor VS, continue meds. Qualifiers: Hypertension type: essential hypertension Qualified Code(s): I10 - Essential (primary) hypertension (9) S/P CABG (coronary artery bypass graft) Impression: The patient had this done at the [facility] and had a vessel harvested from his LLE. Cardiology records shows he is status post a 3-vessel CABG in 05/2012. He likely developed CAD from having DM, life long smoking, uncontrolled HTN and advanced age. 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 Plan: Continue his statin, ASA, and control B/P and heart rate. (10) ICD (implantable cardioverter-defibrillator) in place Impression: The patient states that he has this and on exam has a right device that is easily appreciated in his left upper chest. (11) Benign prostatic hyperplasia Impression: The patient complains of nocturia, frequency and urgency that has been this way for several years. He denies any changes today on exam. He takes Flomax at home which has been continued here. Plan: Provide urinal, continue Flomax, monitor urine output. 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 He continues to smoke despite his vascular disease, 3-vessel CABG, laryngeal CA, chronic oxygen dependence, and tracheostomy. Plan: Offer nicotine patch as needed. Qualifiers: Nicotine product type: cigarettes (13) Diabetes mellitus type 2 with atherosclerosis of arteries of extremities Impression: The patient is prescribed Juaunivia and metformin at home, with a hemoglobin A1C of 6.5%. He was on SSI and blood sugar checks, but since admission he has not required insulin, so today SSI was discontinued and blood sugar checks were changed to as needed only. I suspect that he will not require the medications on discharge based on his low A1C. Plan: Monitor sugars only as needed, regular diet, consider discontinuation of oral meds at home on discharge. (14) Chronic iron deficiency anemia Impression: The patient takes home iron supplement. He had this listed in his history. H/H today was 9.8/31.1, which was slightly lower that yesterday. He denies bleeding on exam today, and this may be due to fluctuating fluid status. I have ordered daily weights for the AM. Plan: Continue iron, monitor fluid status, monitor labs. (15) Chronic low back pain Impression: The patient takes amytriptiline at home, which is continued here. He remains in the chair and on exam denies pain. Plan: Continue to monitor pain, continue home meds. Qualifiers: Back pain laterality: unspecified (16) GERD (gastroesophageal reflux disease) Impression: The patient has this and takes no PPIs or H2 blockers at home. On exam he denies nausea, vomiting and is tolerating his meals. Plan: Continue to monitor. Qualifiers: Esophagitis presence: esophagitis presence not specified Qualified Code(s): K21.9 - Gastro-esophageal reflux disease without esophagitis (17) CHAYITO (obstructive sleep apnea) Impression: The patient had this in his history that was likely not an issue since having a tracheostomy, but today, his trach was changed to a capped variation. This may exacerbate his CHAYITO, which may lead to leaving the cap off while he sleeps to by pass the upper airway. Plan: continue trach care, monitor for apnea tonight with his trach capped. Remove cap if patient is found to have apnea. (18) Myocardial infarct, old Impression: The patient has a history of this, which occurred in May of 2012. He is status post REINOSO graft to LAD, saphenous vein graft to OMB2 with sequential grafting to PDA. He had a follow up coronary angiogram in 06/2013, showing stability. Plan: Continue home meds, continue anticoagulation. (19) Atrial fibrillation Impression: The patient is prescribed warfarin at home and on admission was found to be sub-theraputic. Initial EKG was marked as sinus, but I disagree. It has no P waves, is irregular. He is anticoagulated with warfarin. On exam, he continues to have a irregular heart tone and a systolic murmur. He is prescribed amioderone for a history of V-tach. Plan: Continue beta mehran, amioderone, continue blood thinners per pharmacy. Qualifiers: Atrial fibrillation type: chronic Qualified Code(s): I48.2 - Chronic atrial fibrillation (20) Cardiomyopathy Impression: The patient has cardiomyopathy listed on [facility]. His last EKG shows tall QRS, wide complexes. His last cardiology note spoke of his last EF being ~20%, and consequently has an ICD. H is echocardiogram was delayed since there was a staffing issue. Plan: Await echo in the AM. Qualifiers: Cardiomyopathy type: unspecified Qualified Code(s): I42.9 - Cardiomyopathy, unspecified (21) CKD (chronic kidney disease) stage 2, GFR 60-89 ml/min Impression: After reviewing the chart the patient has a GFR of 60-70 and is at risk for worsening kidney function with the treatment of this acute illness. His GFR today was looking great at 83 and a creatinine of 0.9. Vancomycin was stopped today after preliminary sputum results showed Klebsiella and proteus which are both sensitive to just Cefepime. Plan: Continue daily labs, avoid NSAIDS, nephrotoxins. Daily weight, monitor fluid status.
[2018-06-19] MEDS ORDERED: guaiFENesin 600 MG TABLET PO PRN (13:58)
[2018-06-19] MEDS: methylPREDNISolone SUCCINATE 40 MG/ML VIAL IVP SCH ×2 (14:24→21:57)
[2018-06-19] MEDS: OXYMETAZOLINE NASAL SPRAY NAS SCH ×2 (14:24→22:03)
[2018-06-19] MEDS: SACCHAROMYCES BOULARDII 250 MG CAPSULE PO SCH (16:36)
[2018-06-19] MEDS ORDERED: VANCOMYCIN INJ 500 MG in SODIUM CHLORIDE 0.9% MINIBAG 100 ML IV SCH (21:00)
[2018-06-19] MEDS: ATORVASTATIN 40 MG TABLET PO SCH (21:57)
[2018-06-19] MEDS: traZODone 50 MG TABLET PO SCH (22:03)
[2018-06-20] MEDS: SODIUM CHLORIDE FLUSH 0.9% 10 ML SYRINGE IVP SCH ×6 (00:07→23:54)
[2018-06-20 05:10] LABS: BASOPHILS % (AUTO) 0.6 %; HGB - HEMOGLOBIN 10.6 g/dL (14.0-18.0); LYMPHOCYTES # (AUTO) 0.5 10^3/uL (1.5-3.5); MEAN CORPUSCULAR HEMOGLOBIN 26.7 pg (27.0-31.0); MEAN CORPUSCULAR VOLUME 83.6 fL (80.0-94.0); MEAN PLATELET VOLUME 7.6 fL (7.4-11.4); MONOCYTES # (AUTO) 0.1 10^3/uL (0.0-1.0); MONOCYTES % (AUTO) 2.6 %; NEUTROPHILS # (AUTO) 4.8 10^3/uL (1.5-6.6); NEUTROPHILS % (AUTO) 87.8 %; PLT - PLATELET COUNT 330 10^3/uL (130-450); RED BLOOD COUNT 3.98 10^6/uL (4.70-6.10); RED CELL DISTRIBUTION WIDTH 16.3 % (12.0-15.0); WHITE BLOOD COUNT 5.5 x10^3/uL (4.8-10.8)
[2018-06-20 05:13] LABS: INR 1.3 (0.8-1.2); PT - PROTHROMBIN TIME 15.2 secs (9.9-12.6)
[2018-06-20 05:21] LABS: ALBUMIN 3.2 g/dL (3.2-5.5); ALBUMIN/GLOBULIN RATIO 0.9 (1.0-2.2); BILIRUBIN,TOTAL 0.4 mg/dL (0.2-1.0); CALCIUM 8.5 mg/dL (8.5-10.3); CREATININE 0.9 mg/dL (0.6-1.2); MAGNESIUM 1.9 mg/dL (1.7-2.8); TOTAL PROTEIN 6.7 g/dL (6.7-8.2)
[2018-06-20] MEDS: CEFEPIME 1 GM in SODIUM CHLORIDE 0.9% MINIBAG 100 ML IV SCH ×3 (06:05→23:20)
[2018-06-20] MEDS: methylPREDNISolone SUCCINATE 40 MG/ML VIAL IVP SCH ×2 (06:05→13:38)
[2018-06-20] MEDS: OXYMETAZOLINE NASAL SPRAY NAS SCH ×2 (06:11→20:53)
[2018-06-20] MEDS: VITAMIN B COMPLEX PO SCH ×2 (08:17→22:32)
[2018-06-20] MEDS: SENNA 8.6 MG TABLET PO SCH (08:18)
[2018-06-20] MEDS: FLUTICASONE NASAL SPRAY NAS SCH (08:36)
[2018-06-20] MEDS: POLYETHYLENE GLYCOL 3350 17 GM PACKET PO SCH (08:37)
[2018-06-20] MEDS: AMITRIPTYLINE 10 MG TABLET PO SCH (08:37)
[2018-06-20] MEDS: TAMSULOSIN 0.4 MG CAPSULE PO SCH (08:37)
[2018-06-20] MEDS: CHLORHEXIDINE GLUCONATE 15 ML UDC PO SCH ×2 (08:37→20:52)
[2018-06-20] MEDS: FAMOTIDINE 20 MG TABLET PO SCH ×2 (08:37→20:51)
[2018-06-20] MEDS: CALCIUM CARBONATE CHEW 500 MG TABLET PO SCH ×2 (08:37→20:51)
[2018-06-20] MEDS: METOPROLOL SUCCINATE 50 MG TABLET PO SCH (08:37)
[2018-06-20] MEDS: AMIODARONE 200 MG TABLET PO SCH (08:37)
[2018-06-20] MEDS: SACCHAROMYCES BOULARDII 250 MG CAPSULE PO SCH ×2 (08:37→16:52)
[2018-06-20] MEDS: LOSARTAN 50 MG TABLET PO SCH (08:37)
[2018-06-20] MEDS: WARFARIN 5 MG TABLET PO SCH (08:38)
[2018-06-20] MEDS: DOCUSATE SODIUM 250 MG CAPSULE PO SCH (08:38)
[2018-06-20] MEDS: CALCIUM CITRATE 250 MG TABLET PO SCH (08:38)
[2018-06-20] MEDS: ASPIRIN EC 81 MG TABLET PO SCH (08:38)
[2018-06-20] MEDS: MAGNESIUM OXIDE 400 MG TABLET PO SCH ×2 (08:38→16:52)
[2018-06-20] MEDS: HEPARIN 5,000 UNIT/ML VIAL SUBQ SCH ×2 (08:44→20:53)
[2018-06-20] MEDS: IPRATROPIUM/ALBUTEROL 3 ML NEB INH PRN ×3 (10:04→18:27)
[2018-06-20] MEDS: FORMOTEROL FUMARATE NEB 20 MCG/2 ML INH SCH ×2 (10:07→18:27)
[2018-06-20] MEDS: BUDESONIDE 0.5 MG/2 ML NEB INH SCH ×2 (10:07→18:27)
[2018-06-20] MEDS: FERROUS SULFATE 325 MG TABLET PO SCH (12:09)
[2018-06-20] MEDS: SODIUM CHLORIDE FLUSH 0.9% 10 ML SYRINGE IVP PRN (15:39)
--- NOTE | 2018-06-20 18:12 | PROVIDER PROGRESS NOTE ---
Subjective - Prog Note Date Prog Note Date: 06/20/18 Prog Note Time: 09:00 - Subjective Pt reports feeling: Improved Subjective: Fernandez expresses frustration in trying out his new trach and feels that it is too difficult to breath with it being capped. He denies chest pain, a change in his cough, nausea, vomiting, diarrhea, rashes, dizziness or increased SOB. Current Medications - Current Medications Current Medications: Active Medications: Acetaminophen (Tylenol) 650 mg PO Q4HR PRN Albuterol () 2.5 mg INH RTQ4H PRN Albuterol/Ipratropium (Duoneb) 3 ml INH Q4HR PRN Amiodarone HCl (Pacerone) 200 mg PO DAILY [facility] Amitriptyline HCl (Elavil) 10 mg PO DAILY [facility] Aspirin (Ecotrin) 81 mg PO DAILY [facility] Atorvastatin Calcium (Lipitor) 80 mg PO QPM [facility] Budesonide (Pulmicort) 0.5 mg INH RTBID [facility] Calcium Carbonate/Glycine (Tums) 500 mg PO BID [facility] Calcium Citrate () 250 mg PO DAILY [facility] Chlorhexidine Gluconate (Peridex) 15 ml PO BID [facility] Diphenhydramine HCl (Benadryl) 25 mg PO QPM PRN Docusate Sodium (Colace 250mg Capsule) 250 - 500 mg PO DAILY [facility] Famotidine (Pepcid) 20 mg PO BID [facility] Ferrous Sulfate (Feosol) 325 mg PO DAILY@1200 [facility] Fluticasone Propionate (Flonase) 1 sprays SINTIA DAILY [facility] Formoterol Fumarate (Perforomist) 20 mcg INH RTBID [facility] Furosemide (Lasix) 20 mg PO BIDDIURETIC [facility] Guaifenesin (Mucinex) 600 mg PO BID PRN Heparin Sodium (Porcine) () 2,500 unit SUBQ BID [facility] Cefepime HCl 1 gm/ Sodium (Chloride) 100 mls @ 200 mls/hr IV Q8H [facility] Losartan Potassium (Cozaar) 50 mg PO DAILY [facility] Magnesium Oxide (Mag Ox) 800 mg PO BIDWM [facility] Methylprednisolone (Solu-Medrol (40mg Vial)) 40 mg IVP TID [facility] Metoprolol Succinate (Toprol Xl) 100 mg PO DAILY [facility] Ondansetron HCl (Zofran Inj) 4 mg IVP Q6HR PRN Oxymetazoline HCl (Afrin) 2 sprays SINTIA BID [facility] Patient Own Med ( (Vitamin B Complex)) 1 each PO BID [facility] Polyethylene Glycol (Miralax) 17 gm PO DAILY [facility] Potassium Chloride (Micro-K) 10 meq PO DAILYWM [facility] Saccharomyces Boulardii (Florastor) 250 mg PO BIDWM [facility] Senna (Senokot) 8.6 - 17.2 mg PO DAILY [facility] Tamsulosin HCl (Flomax) 0.4 mg PO DAILY [facility] Trazodone HCl (Desyrel) 50 mg PO QPM [facility] Warfarin Sodium (Coumadin) 5 mg PO DAILY [facility] HOME meds: SITagliptin [Januvia] 100 mg PO DAILY 02/14/17 Warfarin Sodium [Coumadin] 5 mg PO DAILY 02/14/17 Albuterol Sulfate [Proair Hfa Inhaler] 2 puffs INH Q4H PRN 04/05/17 B6/Levomefolate/B12/Ala/If [Abatrex with Ala Tablet] 1 tab PO BID 04/19/18 Ferrous Sulfate 325 mg PO DAILY 04/19/18 Losartan [Cozaar] 50 mg PO DAILY 04/19/18 Metformin HCl 1,000 mg PO BID 04/19/18 Amitriptyline [Elavil] 10 mg PO DAILY 06/17/18 Aspirin [Aspirin EC] 81 mg PO DAILY 06/17/18 Atorvastatin Calcium 80 mg PO QPM 06/17/18 Metoprolol Succinate 100 mg PO DAILY 06/17/18 Objective - Vital Signs/Intake & Output Reviewed Vital Signs: Yes Vital Signs: Vital Signs x48h Temp Pulse Pulse Pulse Resp BP BP 06/20/18 16:32 36.4 C L 60 18 145/98 H 06/20/18 14:41 73 20 06/20/18 11:35 62 154/64 H Pulse Ox 06/20/18 16:32 99 06/20/18 14:41 06/20/18 11:35 Intake & Output: Intake & Output 06/17/18 06/18/18 06/19/18 06/20/18 23:59 23:59 23:59 23:59 Intake Total 4937.500 4560 2900 1640 Output Total 825 Balance 4937.500 4560 2075 1640 - Objective General Appearance: positive: Alert, Mild distress Eyes Bilateral: positive: PERRL Eyes: OU Conjunctivae pale ENT: positive: Pharynx nml, No signs of dehydration Neck: positive: Thyroid nml, No JVD, Trachea midline, Other (new trach in place, minimal drainage) Respiratory: positive: Chest non-tender, No respiratory distress, Rhonchi Cardiovascular: positive: No gallop, Irregularly irregular, Systolic murmur, Decreased pulse(s) Peripheral Pulses: 1+ Radial (R), 1+ Radial (L) Abdomen: positive: Non-tender, Nml bowel sounds Back: positive: Nml inspection Skin: positive: No rash, Warm, Dry, Cyanosis, Pallor Extremities: positive: Non-tender, Full ROM, Pedal edema, Joint swelling Neurologic/Psychiatric: positive: Oriented x3, Weakness, Sensory loss, Depressed mood/affect, Other (impaired speech from tracheostomy) Reflexes: Bicep (R): 2+, Bicep (L): 2+ - Lab Results Fish Bones: 06/20/18 04:30 06/20/18 04:30 Other Labs: Lab Results x24hrs 06/20/18 06/20/18 06/20/18 Range/Units 16:24 12:14 04:30 WBC (4.8-10.8) x10^3/uL RBC (4.70-6.10) 10^6/uL Hgb (14.0-18.0) g/dL Hct (42.0-52.0) % MCV (80.0-94.0) fL MCH (27.0-31.0) pg MCHC (32.0-36.0) g/dL RDW (12.0-15.0) % Plt Count (130-450) 10^3/uL MPV (7.4-11.4) fL Neut # (Auto) (1.5-6.6) 10^3/uL Lymph # (Auto) (1.5-3.5) 10^3/uL [place] # (Auto) (0.0-1.0) 10^3/uL Eos # (Auto) (0.0-0.7) 10^3/uL Baso # (Auto) (0.0-0.1) 10^3/uL Absolute Nucleated RBC x10^3/uL Nucleated RBC % /100WBC PT (9.9-12.6) secs INR (0.8-1.2) Sodium (135-145) mmol/L Potassium (3.5-5.0) mmol/L Chloride (101-111) mmol/L Carbon Dioxide (21-32) mmol/L Anion Gap (6-13) BUN (6-20) mg/dL Creatinine (0.6-1.2) mg/dL Estimated GFR (MDRD) (>89) Glucose (70-100) mg/dL POC Whole Bld Glucose 302 H 285 H (70 - 100) mg/dL Calcium (8.5-10.3) mg/dL Magnesium (1.7-2.8) mg/dL Total Bilirubin (0.2-1.0) mg/dL AST (10-42) IU/L ALT (10-60) IU/L Alkaline Phosphatase (42-121) IU/L B-Natriuretic Peptide 750 H (5-100) pg/mL Total Protein (6.7-8.2) g/dL Albumin (3.2-5.5) g/dL Globulin (2.1-4.2) g/dL Albumin/Globulin Ratio (1.0-2.2) 06/20/18 06/20/18 06/20/18 Range/Units 04:30 04:30 04:30 WBC 5.5 (4.8-10.8) x10^3/uL RBC 3.98 L (4.70-6.10) 10^6/uL Hgb 10.6 L (14.0-18.0) g/dL Hct 33.2 L (42.0-52.0) % MCV 83.6 (80.0-94.0) fL MCH 26.7 L (27.0-31.0) pg MCHC 32.0 (32.0-36.0) g/dL RDW 16.3 H (12.0-15.0) % Plt Count 330 (130-450) 10^3/uL MPV 7.6 (7.4-11.4) fL Neut # (Auto) 4.8 (1.5-6.6) 10^3/uL Lymph # (Auto) 0.5 L (1.5-3.5) 10^3/uL [place] # (Auto) 0.1 (0.0-1.0) 10^3/uL Eos # (Auto) 0.0 (0.0-0.7) 10^3/uL Baso # (Auto) 0.0 (0.0-0.1) 10^3/uL Absolute Nucleated RBC 0.00 x10^3/uL Nucleated RBC % 0.1 /100WBC PT 15.2 H (9.9-12.6) secs INR 1.3 H (0.8-1.2) Sodium 135 (135-145) mmol/L Potassium 4.6 (3.5-5.0) mmol/L Chloride 102 (101-111) mmol/L Carbon Dioxide 26 (21-32) mmol/L Anion Gap 7.0 (6-13) BUN 18 (6-20) mg/dL Creatinine 0.9 (0.6-1.2) mg/dL Estimated GFR (MDRD) 83 L (>89) Glucose 238 H (70-100) mg/dL POC Whole Bld Glucose (70 - 100) mg/dL Calcium 8.5 (8.5-10.3) mg/dL Magnesium 1.9 (1.7-2.8) mg/dL Total Bilirubin 0.4 (0.2-1.0) mg/dL AST 16 (10-42) IU/L ALT 17 (10-60) IU/L Alkaline Phosphatase 71 (42-121) IU/L B-Natriuretic Peptide (5-100) pg/mL Total Protein 6.7 (6.7-8.2) g/dL Albumin 3.2 (3.2-5.5) g/dL Globulin 3.5 (2.1-4.2) g/dL Albumin/Globulin Ratio 0.9 L (1.0-2.2) 06/19/18 06/19/18 06/18/18 Range/Units 11:54 07:53 21:04 WBC (4.8-10.8) x10^3/uL RBC (4.70-6.10) 10^6/uL Hgb (14.0-18.0) g/dL Hct (42.0-52.0) % MCV (80.0-94.0) fL MCH (27.0-31.0) pg MCHC (32.0-36.0) g/dL RDW (12.0-15.0) % Plt Count (130-450) 10^3/uL MPV (7.4-11.4) fL Neut # (Auto) (1.5-6.6) 10^3/uL Lymph # (Auto) (1.5-3.5) 10^3/uL [place] # (Auto) (0.0-1.0) 10^3/uL Eos # (Auto) (0.0-0.7) 10^3/uL Baso # (Auto) (0.0-0.1) 10^3/uL Absolute Nucleated RBC x10^3/uL Nucleated RBC % /100WBC PT (9.9-12.6) secs INR (0.8-1.2) Sodium (135-145) mmol/L Potassium (3.5-5.0) mmol/L Chloride (101-111) mmol/L Carbon Dioxide (21-32) mmol/L Anion Gap (6-13) BUN (6-20) mg/dL Creatinine (0.6-1.2) mg/dL Estimated GFR (MDRD) (>89) Glucose (70-100) mg/dL POC Whole Bld Glucose 143 H 111 H 148 H (70 - 100) mg/dL Calcium (8.5-10.3) mg/dL Magnesium (1.7-2.8) mg/dL Total Bilirubin (0.2-1.0) mg/dL AST (10-42) IU/L ALT (10-60) IU/L Alkaline Phosphatase (42-121) IU/L B-Natriuretic Peptide (5-100) pg/mL Total Protein (6.7-8.2) g/dL Albumin (3.2-5.5) g/dL Globulin (2.1-4.2) g/dL Albumin/Globulin Ratio (1.0-2.2) 06/18/18 06/18/18 06/18/18 Range/Units 16:16 11:22 07:18 WBC (4.8-10.8) x10^3/uL RBC (4.70-6.10) 10^6/uL Hgb (14.0-18.0) g/dL Hct (42.0-52.0) % MCV (80.0-94.0) fL MCH (27.0-31.0) pg MCHC (32.0-36.0) g/dL RDW (12.0-15.0) % Plt Count (130-450) 10^3/uL MPV (7.4-11.4) fL Neut # (Auto) (1.5-6.6) 10^3/uL Lymph # (Auto) (1.5-3.5) 10^3/uL [place] # (Auto) (0.0-1.0) 10^3/uL Eos # (Auto) (0.0-0.7) 10^3/uL Baso # (Auto) (0.0-0.1) 10^3/uL Absolute Nucleated RBC x10^3/uL Nucleated RBC % /100WBC PT (9.9-12.6) secs INR (0.8-1.2) Sodium (135-145) mmol/L Potassium (3.5-5.0) mmol/L Chloride (101-111) mmol/L Carbon Dioxide (21-32) mmol/L Anion Gap (6-13) BUN (6-20) mg/dL Creatinine (0.6-1.2) mg/dL Estimated GFR (MDRD) (>89) Glucose (70-100) mg/dL POC Whole Bld Glucose 138 H 142 H 115 H (70 - 100) mg/dL Calcium (8.5-10.3) mg/dL Magnesium (1.7-2.8) mg/dL Total Bilirubin (0.2-1.0) mg/dL AST (10-42) IU/L ALT (10-60) IU/L Alkaline Phosphatase (42-121) IU/L B-Natriuretic Peptide (5-100) pg/mL Total Protein (6.7-8.2) g/dL Albumin (3.2-5.5) g/dL Globulin (2.1-4.2) g/dL Albumin/Globulin Ratio (1.0-2.2) 06/17/18 06/17/18 06/17/18 Range/Units 20:39 16:27 11:40 WBC (4.8-10.8) x10^3/uL RBC (4.70-6.10) 10^6/uL Hgb (14.0-18.0) g/dL Hct (42.0-52.0) % MCV (80.0-94.0) fL MCH (27.0-31.0) pg MCHC (32.0-36.0) g/dL RDW (12.0-15.0) % Plt Count (130-450) 10^3/uL MPV (7.4-11.4) fL Neut # (Auto) (1.5-6.6) 10^3/uL Lymph # (Auto) (1.5-3.5) 10^3/uL [place] # (Auto) (0.0-1.0) 10^3/uL Eos # (Auto) (0.0-0.7) 10^3/uL Baso # (Auto) (0.0-0.1) 10^3/uL Absolute Nucleated RBC x10^3/uL Nucleated RBC % /100WBC PT (9.9-12.6) secs INR (0.8-1.2) Sodium (135-145) mmol/L Potassium (3.5-5.0) mmol/L Chloride (101-111) mmol/L Carbon Dioxide (21-32) mmol/L Anion Gap (6-13) BUN (6-20) mg/dL Creatinine (0.6-1.2) mg/dL Estimated GFR (MDRD) (>89) Glucose (70-100) mg/dL POC Whole Bld Glucose 146 H 144 H 216 H (70 - 100) mg/dL Calcium (8.5-10.3) mg/dL Magnesium (1.7-2.8) mg/dL Total Bilirubin (0.2-1.0) mg/dL AST (10-42) IU/L ALT (10-60) IU/L Alkaline Phosphatase (42-121) IU/L B-Natriuretic Peptide (5-100) pg/mL Total Protein (6.7-8.2) g/dL Albumin (3.2-5.5) g/dL Globulin (2.1-4.2) g/dL Albumin/Globulin Ratio (1.0-2.2) 06/17/18 06/16/18 Range/Units 07:17 20:37 WBC (4.8-10.8) x10^3/uL RBC (4.70-6.10) 10^6/uL Hgb (14.0-18.0) g/dL Hct (42.0-52.0) % MCV (80.0-94.0) fL MCH (27.0-31.0) pg MCHC (32.0-36.0) g/dL RDW (12.0-15.0) % Plt Count (130-450) 10^3/uL MPV (7.4-11.4) fL Neut # (Auto) (1.5-6.6) 10^3/uL Lymph # (Auto) (1.5-3.5) 10^3/uL [place] # (Auto) (0.0-1.0) 10^3/uL Eos # (Auto) (0.0-0.7) 10^3/uL Baso # (Auto) (0.0-0.1) 10^3/uL Absolute Nucleated RBC x10^3/uL Nucleated RBC % /100WBC PT (9.9-12.6) secs INR (0.8-1.2) Sodium (135-145) mmol/L Potassium (3.5-5.0) mmol/L Chloride (101-111) mmol/L Carbon Dioxide (21-32) mmol/L Anion Gap (6-13) BUN (6-20) mg/dL Creatinine (0.6-1.2) mg/dL Estimated GFR (MDRD) (>89) Glucose (70-100) mg/dL POC Whole Bld Glucose 110 H 138 H (70 - 100) mg/dL Calcium (8.5-10.3) mg/dL Magnesium (1.7-2.8) mg/dL Total Bilirubin (0.2-1.0) mg/dL AST (10-42) IU/L ALT (10-60) IU/L Alkaline Phosphatase (42-121) IU/L B-Natriuretic Peptide (5-100) pg/mL Total Protein (6.7-8.2) g/dL Albumin (3.2-5.5) g/dL Globulin (2.1-4.2) g/dL Albumin/Globulin Ratio (1.0-2.2) ABX Reporting Has patient been on IV antibiotics over the past 48 hours?: Yes Sepsis Event Note (H) - Evaluation Current Stage of Sepsis: Resolved Possible source of Sepsis: positive: Pulmonary - Sepsis Criteria Sepsis Criteria: Recorded Heart Rate greater than 90 bpm, Metabolic: lactate > 2 mmol/L Assessment/Plan - Problem List (1) Left lower lobe pneumonia Impression: A sputum culture from the time of admission shows Klebsiella and Proteus, so Vancomycin can be discontinued since Cefepime is sensitive to both of these pathogens. Final sensitivities are not back. His condition is not generally improved, so I have added low dose steroid given his COPD. Plan: Continue IV Cefepime, IV solumedrol at 40mg TID, and ensure proper maintenance of new trach. Qualifiers: Pneumonia type: due to Klebsiella pneumoniae Qualified Code(s): J15.0 - Pneumonia due to Klebsiella pneumoniae (2) Systolic CHF with reduced left ventricular function, NYHA class 3 Impression: The patient has cardiomyopathy listed [facility] His last EKG shows tall QRS, wide complexes. His last ca rdiology note spoke of his last EF being ~20%, and consequently has an ICD. His echocardiogram was delayed since there was a staffing issue. ON his last echo in 2018 he had LVH with a reduced EF of 40%. Plan: Continue beta mehran, amioderone, start low dose lasix, I/Os, daily weights. (3) Dyspnea Impression: The patient complains that he has been more short of breath for the past month after having pneumonia now for the second time in 2 weeks. Our RT has found a new tracheostomy, similar in size and function that remains in place with success in discarding his old trach as it was adding to his recurrent infections. This was provided to the patient and came with a cap to prevent the patient from continually touching his trach in order to speak, but this was not tolerated overnight. Today he was set up with a heated aerosol. Plan: Provide oxygen, nebulizers, continue low dose IV steroid, respiratory care. Qualifiers: Dyspnea type: shortness of breath Qualified Code(s): R06.02 - Shortness of breath (4) COPD (chronic obstructive pulmonary disease) Impression: The patient has this as a consequence of his life long smoking. He is prescr ibed chronic oxygen, but continues to smoke at home. He is getting budesinide, duo-nebs and no steroids. Plan: Continue IV solumedrol, routine nebs including a LAMA, LABA, and albuterol, monitor new type of tracheostomy, continue to treat with IV cefepime. Qualifiers: COPD type: COPD with acute lower respiratory infection Qualified Code(s): J44.0 - Chronic obstructive pulmonary disease with acute lower respiratory infection (5) Dependence on continuous supplemental oxygen Impression: The patient states that he has been dependent on oxygen for the past several years and continues to smoke at home. Today, during his exam, I noticed that his tubing was very soiled, so this was changed out with a new nasal cannula. He states that his usual dose of oxygen is 2-3L at home. He has been on 3L nasal cannula, with a heated aerosol. Plan: Continue oxygen, monitor vitals. (6) Tracheostomy present Impression: The patient states that has an ENT in [place], and has not had his trach changed in about 4 years. His trach was not functional and the clip that locks the inner trach in place was not functioning. Also, since he has had recurrent pneumonia, he needs to have his trach changed for this hospital stay because he has a terrible habit of touching his finger to block the whole in order to speak. Our wonderful respiratory team found a new tracheostomy which was similar to his current one, which was changed. It is now fenestrated, which was explained to the patient and encouraged to leave the cap on, but this has been causing him to much anxiety. Plan: Monitor new trach. Continue heated aerosol, continue nasal cannula. (7) Laryngeal cancer Impression: The patient states that he had cancer ~10 years ago, which led to his permanent tracheostomy. He was able to speak by covering his old trach opening, but today he was provided with a new device that is fenestrated and capped to allow more air to flow past his vocal cords. This will hopefully lead to less incidences of pneumonia likely caused by his contaminated fingers that were used to block the air from escaping while he jibber jabbers away. He is not tolerating the cap today. Plan: Routine nursing trach care to ensure continual cleanliness, Peridex mouth care per nursing or RT, respiratory therapy. (8) Generalized weakness Impression: The patient states that he fears that he will not be able to live on his own since being profoundly weak with this pneumonia. He states that he does not want to be a bother to his family with his extra care. He states that in the past, he has stayed at [facility] for rehab. PT evaluation concluded that he has rehab potential. Plan: Plan for discharge to [facility] as early as tomorrow. (9) Hypertension Impression: The patient is status post CABG and has an ICD in his left upper chest. He has long standing HTN and is prescribed losartan, metoprolol and ASA at home which is continued here. Today blood pressure remains high, and his BNP is elevated, so I have started a diuretic to help with some fluid overload that is suspected. Plan: continue to monitor VS, continue meds. Qualifiers: Hypertension type: essential hypertension Qualified Code(s): I10 - Essential (primary) hypertension (10) S/P CABG (coronary artery bypass graft) Impression: The patient had this done at the [facility] and had a vessel harvested from his LLE. Cardiology records shows he is status post a 3-vessel CABG in 05/2012. He likely developed CAD from having DM, life long smoking, uncontrolled HTN and advanced age. 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 Plan: Continue his statin, ASA, and control B/P and heart rate. 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 He continues to smoke despite his vascular disease, 3-vessel CABG, laryngeal CA, chronic oxygen dependence, and tracheostomy. Plan: Offer nicotine patch as needed. Qualifiers: Nicotine product type: cigarettes (13) Chronic iron deficiency anemia Impression: The patient takes home iron supplement. He had this listed in his history. H/H today was 10.6/33. He denies bleeding on exam, and this may be due to fluctuating fluid status. He has an elevated BNP. Plan: Continue iron, monitor fluid status, monitor labs. (14) Chronic low back pain Impression: The patient takes amytriptiline at home, which is continued here. He remains in the chair and on exam denies pain. Plan: Continue to monitor pain, continue home meds. Qualifiers: Back pain laterality: unspecified (15) Atrial fibrillation Impression: The patient is prescribed warfarin at home and on admission was found to be sub- theraputic. He is anticoagulated with warfarin, but due his CHF, he has liver congestion causing his liver to be dysfunctional. On exam, he continues to have a irregular heart tone and a systolic murmur. He is prescribed amioderone for a history of V-tach. Plan: Continue beta mehran, amioderone, continue blood thinners per pharmacy. Qualifiers: Atrial fibrillation type: chronic Qualified Code(s): I48.2 - Chronic atrial fibrillation (16) CKD (chronic kidney disease) stage 2, GFR 60-89 ml/min Impression: After reviewing the chart the patient has a GFR of 60-70 and is at risk for wor sening kidney function with the treatment of this acute illness. His GFR today was looking great at 83 and a creatinine of 0.9. Vancomycin was stopped after preliminary sputum results showed Klebsiella and proteus which are both sensitive to just Cefepime. Plan: Continue daily labs, avoid NSAIDS, nephrotoxins. Daily weight, monitor fluid status. (17) Diabetes mellitus type 2 with atherosclerosis of arteries of extremities Impression: The patient is prescribed Juaunivia and metformin at home, with a hemoglobin A1C of 6.5%. He was on SSI and blood sugar checks, but since admission he has not required insulin, so today SSI was discontinued and blood sugar checks were changed to as needed only. I suspect that he will not require the medications on discharge based on his low A1C. Plan: Monitor sugars only as needed, regular diet, consider discontinuation of oral meds at home on discharge.
[2018-06-20] MEDS: FUROSEMIDE 20 MG TABLET PO SCH (19:02)
[2018-06-20] MEDS: ATORVASTATIN 40 MG TABLET PO SCH (20:51)
[2018-06-20] MEDS: traZODone 50 MG TABLET PO SCH (20:51)
[2018-06-20] MEDS: diphenhydrAMINE 25 MG CAPSULE PO PRN (22:45)
[2018-06-21 05:19] LABS: BASOPHILS % (AUTO) 0.5 %; EOSINOPHILS % (AUTO) 0.1 %; HGB - HEMOGLOBIN 10.3 g/dL (14.0-18.0); LYMPHOCYTES # (AUTO) 1.2 10^3/uL (1.5-3.5); LYMPHOCYTES % (AUTO) 13.3 %; MEAN CORPUSCULAR HEMOGLOBIN 26.6 pg (27.0-31.0); MEAN CORPUSCULAR HGB CONC 31.9 g/dL (32.0-36.0); MEAN CORPUSCULAR VOLUME 83.3 fL (80.0-94.0); MEAN PLATELET VOLUME 7.4 fL (7.4-11.4); MONOCYTES # (AUTO) 0.7 10^3/uL (0.0-1.0); MONOCYTES % (AUTO) 8.1 %; NEUTROPHILS # (AUTO) 6.9 10^3/uL (1.5-6.6); PLT - PLATELET COUNT 340 10^3/uL (130-450); RED BLOOD COUNT 3.86 10^6/uL (4.70-6.10); RED CELL DISTRIBUTION WIDTH 16.6 % (12.0-15.0); WHITE BLOOD COUNT 8.9 x10^3/uL (4.8-10.8)
[2018-06-21 05:22] LABS: INR 1.6 (0.8-1.2)
[2018-06-21 05:28] LABS: ALBUMIN 3.3 g/dL (3.2-5.5); ALBUMIN/GLOBULIN RATIO 0.9 (1.0-2.2); BILIRUBIN,TOTAL 0.3 mg/dL (0.2-1.0); TOTAL PROTEIN 6.8 g/dL (6.7-8.2)
[2018-06-21] MEDS: CEFEPIME 1 GM in SODIUM CHLORIDE 0.9% MINIBAG 100 ML IV SCH (07:02)
[2018-06-21] MEDS: FUROSEMIDE 20 MG TABLET PO SCH (07:04)
[2018-06-21] MEDS: methylPREDNISolone SUCCINATE 40 MG/ML VIAL IVP SCH (07:04)
[2018-06-21] MEDS: FORMOTEROL FUMARATE NEB 20 MCG/2 ML INH SCH (07:38)
[2018-06-21] MEDS: BUDESONIDE 0.5 MG/2 ML NEB INH SCH (07:38)
[2018-06-21] MEDS: IPRATROPIUM/ALBUTEROL 3 ML NEB INH PRN ×2 (07:44→12:19)
[2018-06-21] MEDS ORDERED: POTASSIUM CHLORIDE 10 MEQ CAPSULE PO SCH (08:00)
[2018-06-21] MEDS: CHLORHEXIDINE GLUCONATE 15 ML UDC PO SCH (08:40)
[2018-06-21] MEDS: TAMSULOSIN 0.4 MG CAPSULE PO SCH (08:40)
[2018-06-21] MEDS: SODIUM CHLORIDE FLUSH 0.9% 10 ML SYRINGE IVP SCH (08:40)
[2018-06-21] MEDS: AMIODARONE 200 MG TABLET PO SCH (08:40)
[2018-06-21] MEDS: MAGNESIUM OXIDE 400 MG TABLET PO SCH (08:40)
[2018-06-21] MEDS: METOPROLOL SUCCINATE 50 MG TABLET PO SCH (08:40)
[2018-06-21] MEDS: ASPIRIN EC 81 MG TABLET PO SCH (08:41)
[2018-06-21] MEDS: WARFARIN 5 MG TABLET PO SCH (08:41)
[2018-06-21] MEDS: CALCIUM CITRATE 250 MG TABLET PO SCH (08:41)
[2018-06-21] MEDS: CALCIUM CARBONATE CHEW 500 MG TABLET PO SCH (08:41)
[2018-06-21] MEDS: AMITRIPTYLINE 10 MG TABLET PO SCH (08:41)
[2018-06-21] MEDS: POLYETHYLENE GLYCOL 3350 17 GM PACKET PO SCH (08:41)
[2018-06-21] MEDS: LOSARTAN 50 MG TABLET PO SCH (08:41)
[2018-06-21] MEDS: SENNA 8.6 MG TABLET PO SCH (08:41)
[2018-06-21] MEDS: DOCUSATE SODIUM 250 MG CAPSULE PO SCH (08:41)
[2018-06-21] MEDS: FAMOTIDINE 20 MG TABLET PO SCH (08:41)
[2018-06-21] MEDS: SACCHAROMYCES BOULARDII 250 MG CAPSULE PO SCH (08:46)
[2018-06-21] MEDS: OXYMETAZOLINE NASAL SPRAY NAS SCH (08:51)
[2018-06-21] MEDS: FLUTICASONE NASAL SPRAY NAS SCH (08:51)
[2018-06-21] MEDS: VITAMIN B COMPLEX PO SCH (08:51)
[2018-06-21] MEDS: HEPARIN 5,000 UNIT/ML VIAL SUBQ SCH (08:51)
[2018-06-21 08:56] VITALS: BP 120/53
--- NOTE | 2018-06-21 10:42 | Discharge Plan ---
"Discharge Plan for SNF / [facility] - Discharge Plan And Transition Orders Disposition: 03 SNF DC/Xfer Condition: Good Allergies and Adverse Reactions: Allergies Allergy/AdvReac Type Severity Reaction Status Date / Time No Known Drug Allergies Allergy Verified 06/16/18 16:01 - SNF / [facility] Transition Orders Admit to (Facility): Care Age miguel a Baugh Under the care of (Name): Dr. Kapoor Discharge Diagnosis: Infection due to ESBL-producing Klebsiella pneumoniae (A49.8) Sensitivities resulted on 06/21/18, treatment to continue x10 days, 06/21/18 is day #1 of treatment. Pneumonia, Klebsiella (J15.0) and Proteus were preliminary results. Treated initially with vanco/cefepime, now on oral antibiotics Insomnia (G47.00) Doing well with low dose trazadone Uncontrolled type 2 diabetes mellitus without complication (E11.65) Metformin held, blood sugars were low, so insulin stopped. Steroids were started, so patient should continue low dose metformin on discharge. HTN (hypertension) (I10) chronic, stable. Chronic atrial fibrillation (I48.2) anticoagulated with warfarin, Lovenox bridge to continue. INR today was 1.6. 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 New device on this hospital stay. Dyspnea (R06.00) resolved. COPD (chronic obstructive pulmonary disease) (J44.9) steroid taper to continue. Dependence on supplemental oxygen (Z99.81) chronic, stable, 3-4L per nasal cannula. Laryngeal cancer (C32.9) chronic, stable. Generalized weakness (R53.1) improved, rehab potential. S/P CABG (coronary artery bypass graft) (Z95.1) chronic, stable. BPH (benign prostatic hyperplasia) (N40.0) chronic, stable, continue flomax. Nicotine dependence (F17.200) chronic, stable. Chronic iron deficiency anemia (D50.9) chronic, stable. Chronic low back pain (M54.5) chronic, stable. CKD (chronic kidney disease) stage 2, GFR 60-89 ml/min (N18.2) chronic, stable. Systolic congestive heart failure with reduced left ventricular function, NYHA class 3 (I50.20) chronic, stable, continue daily furosemide with potassium. ICD (implantable cardioverter-defibrillator) in place (Z95.810) chronic, stable. GERD (gastroesophageal reflux disease) (K21.9) chronic, stable. CHAYITO (obstructive sleep apnea) (G47.33) chronic, stable. Myocardial infarct, old (I25.2) chronic, stable. H/O ventricular tachycardia (Z86.79)chronic, stable, continue amioderone. Medicare Certification Statement: I certify that Post Hospital assisted care is medically necessary on a continuing basis for any of the conditions for which she/he is receiving care during hospitalization. Notify PCP of admission and forward orders to primary provider for signature. Weight on admission and: Weekly Other Notification Orders: Call PCP immediately if patient develops dyspnea, chest pain/tightness or edema. House Bowel Program: Yes Additional Bowel Program Orders: If no BM after 2 days, nurse may give M.O.M. 30ml PO PRN and/or ducolax Supp 1 LA and/or REY 250mg P.O., and/or senna 1-2 tabs PO. On day 3 nurse may give repeat above order until residents constipation is resolved. Annual Influenza Vaccine (between Jan 19 and August 18): Yes Two-step PPD per [facility] [id number] or approved exception documents: Yes Treatments & Other Orders: Continue treatment of ESBL pneumonia for 10 days based on sensitivites. 06/21/2018 is day #1. Oxygen Orders: Continuos Nasal cannula 2-4L to keep oxygen greater than 90%. Continuous heated aerosol to keep on chronic tracheostomy. Passey [place] valve as tolerated. Lab Tests or X-ray Orders: INR as per provider schedule. Was on heparin BID injections used as a bridge for his subtheraputic INRs. Medication Orders: PLEASE REFER TO THE DISCHARGE MEDICATION LIST. Insulin Orders?: No - Medications New Prescriptions: Chlorhexidine Gluconate [Peridex] 15 ml MM TID #90 mouthwash Enoxaparin [Lovenox] 80 mg SUBQ Q12H #6 syringe Ferrous Gluconate [Iron] 240 mg PO DAILY #30 tablet metFORMIN [Glucophage] 500 mg PO BIDWM #60 tablet Saccharomyces Boulardii [Florastor] 250 mg PO BID #60 capsule - Diet Type: Geriatric Texture: Regular Liquids: Thin May have monthly special meal: Yes - Therapies | Activity Therapy: Evaluation | Treat if indicated: Speech, PT, OT Rehabilitation Potential: Maximize functional status, Maintain present ADL Functional Activity: Activity as Tolerated Weight Bearing: Full Weight Assistance Devices: Walker Additional Instructions: Routine tracheostomy care, change tracheostomy device in 30-90 days. Encourage sterile/clean techniques to patient when handling trach. He has been caught removing his entire trach, and rinsing it off in his mouth. He has had recurrent pneumonia likely as a consequence of these unsanitary measures. Please assist in obtaining outpatient trach supplies if he is sent back to his trailer upon discharge."
[2018-06-21] MEDS ORDERED: AMOX/CLAV 875 MG/125 MG TABLET PO SCH (11:00)
--- NOTE | 2018-06-21 11:10 | DISCHARGE SUMMARY ---
Discharge Summary Admit Date: 06/16/18 Discharge Date: 06/21/18 Discharging Provider: DAMON Anderson Primary Care Provider: Raul Delaney Code Status: Do Not Attempt Resuscitation Condition at Discharge: Good Discharge Disposition: 03 SNF DC/Xfer Discharge Facility Name: [facility] Age of Amauri - DIAGNOSES Admission Diagnoses: Pneumonia Hypocalcemia DM type 2 (diabetes mellitus, type 2) Dehydration Systolic heart failure Elevated lactic acid level Discharge Diagnoses with Status of Each Condition: Infection due to ESBL-producing Klebsiella pneumoniae (A49.8) Sensitivities resulted on 06/21/18, treatment to continue x10 days, 06/21/18 is day #1 of treatment. Pneumonia, Klebsiella (J15.0) and Proteus were preliminary results. Treated initially with vanco/cefepime, now on oral antibiotics Insomnia (G47.00) Doing well with low dose trazadone Uncontrolled type 2 diabetes mellitus without complication (E11.65) Metformin held, blood sugars were low, so insulin stopped. Steroids were started, so patient should continue low dose metformin on discharge. HTN (hypertension) (I10) chronic, stable. Chronic atrial fibrillation (I48.2) anticoagulated with warfarin, Lovenox bridge to continue. INR today was 1.6. 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 New device on this hospital stay. Dyspnea (R06.00) resolved. COPD (chronic obstructive pulmonary disease) (J44.9) steroid taper to continue. Dependence on supplemental oxygen (Z99.81) chronic, stable, 3-4L per nasal cannula. Laryngeal cancer (C32.9) chronic, stable. Generalized weakness (R53.1) improved, rehab potential. S/P CABG (coronary artery bypass graft) (Z95.1) chronic, stable. BPH (benign prostatic hyperplasia) (N40.0) chronic, stable, continue flomax. Nicotine dependence (F17.200) chronic, stable. Chronic iron deficiency anemia (D50.9) chronic, stable. Chronic low back pain (M54.5) chronic, stable. CKD (chronic kidney disease) stage 2, GFR 60-89 ml/min (N18.2) chronic, stable. Systolic congestive heart failure with reduced left ventricular function, NYHA class 3 (I50.20) chronic, stable, continue daily furosemide with potassium. ICD (implantable cardioverter-defibrillator) in place (Z95.810) chronic, stable. GERD (gastroesophageal reflux disease) (K21.9) chronic, stable. CHAYITO (obstructive sleep apnea) (G47.33) chronic, stable. Myocardial infarct, old (I25.2) chronic, stable. H/O ventricular tachycardia (Z86.79)chronic, stable, continue amioderone. - HPI History of Present Illness: Fernandez Cast is a 71-year-old gentleman with a past medical history significant for hypertension, hyperlipidemia, hypocalcemia, coronary artery disease status post CABG, congestive heart failure with an ejection fraction of 40-45% on his last echo in 03/2018, COPD on 2-3 L of oxygen at night, history of laryngeal cancer status post tracheostomy since 1989, obstructive sleep apnea, diabetes and osteoarthritis. He presented to the emergency department with a chief complaint of a productive cough, shortness of breath and dizziness. Pt had a recent pneumonia, then he was discharged to [facility], and he went back home for about 1 week. pt reports in the past 4-5 days he had an increase productive sputum, felt shortness of breath, and become more dizzy and lightheaded. CXR revealed left basilar opacity suggestive of infiltrate and or effusion. Lab test reveals he had significantly low calcium and an elevated lactate, and elevated creatinine. His sputum culture on prior pneumonia was fount to have klebselia and proteus, both organisms were sensitive to Cefepime. Pt denies fever, chill, headache, chest pain, abdominal pain, nausea, vomiting, diarrhea, dysuria, hematouria, vision change, focus neurological deficits. As a result of his presentation, pt was admitted in the hospital. - HOSPITAL COURSE Hospital Course: Fernandez was treated for pneumonia and sputum culture results showed ESBL-K lebsiella/proteus (contact precautions) with a few sensitivities. He was given steroids for lack of improvement that should be continued on a taper. He was started on Peridex oral rinse that should continue indefinitely to prevent VAP and due to his horrible oral condition of dental caries, etc. RT worked with him to ensure quality with the care of his permanent tracheostomy device as this was thought to have been a possible cause of his pneumonia. He received a new trach that should be changed again in 60-90 days. There was difficulty in finding an outpatient supply company to help with ongoing trach care. He was medically stable and discharged to SNF for skilled rehab with the possibility of director long term care placement. - ALLERGIES Allergies/Adverse Reactions: Allergies Allergy/AdvReac Type Severity Reaction Status Date / Time No Known Drug Allergies Allergy Verified 06/16/18 16:01 - MEDICATIONS Home Medications: Ambulatory Orders Medication Instructions Recorded Confirmed Warfarin Sodium [Coumadin] 5 mg PO DAILY 02/14/17 06/17/18 Albuterol Sulfate [Proair Hfa 2 puffs INH Q4H PRN 04/05/17 06/17/18 Inhaler] B6/Levomefolate/B12/Ala/If 1 tab PO BID 04/19/18 06/17/18 [Abatrex with Ala Tablet] Losartan [Cozaar] 50 mg PO DAILY 04/19/18 06/17/18 Amitriptyline [Elavil] 10 mg PO DAILY 06/17/18 06/17/18 Aspirin [Aspirin EC] 81 mg PO DAILY 06/17/18 06/17/18 Atorvastatin Calcium 80 mg PO QPM 06/17/18 06/17/18 Acetaminophen [Tylenol] 650 mg PO Q4HR PRN #90 tablet 06/21/18 Amox/Clav 875/125 [Augmentin 1 tab PO BID #20 tablet 06/21/18 875/125] Chlorhexidine Gluconate [Peridex] 15 ml MM TID #90 mouthwash 06/21/18 Enoxaparin [Lovenox] 80 mg SUBQ Q12H #6 syringe 06/21/18 Ferrous Gluconate [Iron] 240 mg PO DAILY #30 tablet 06/21/18 Fluticasone [Flonase] 1 sprays SINTIA DAILY #1 bottle 06/21/18 Furosemide [Lasix] 20 mg PO DAILY #30 tablet 06/21/18 Metoprolol Succinate [Toprol Xl] 50 mg PO BIDWM #60 tablet 06/21/18 Polyethylene Glycol 3350 [Miralax] 17 gm PO DAILY #30 packet 06/21/18 Potassium Chloride [Micro-K] 10 meq PO DAILYWM #30 capsule 06/21/18 Saccharomyces Boulardii [Florastor] 250 mg PO BID #60 capsule 06/21/18 Tamsulosin [Flomax] 0.4 mg PO DAILY #30 capsule 06/21/18 guaiFENesin [Mucinex] 600 mg PO BID PRN #60 tablet 06/21/18 metFORMIN [Glucophage] 500 mg PO BIDWM #60 tablet 06/21/18 predniSONE [Deltasone] 20 mg PO DAILYWM #7 tablet 06/21/18 traZODone [Desyrel] 50 mg PO QPM #30 tablet 06/21/18 - PHYSICAL EXAM AT DISCHARGE General Appearance: positive: No acute distress, Alert Eyes Bilateral: positive: PERRL, No lid inflammation ENT: positive: Pharyngeal erythema, Dry mucous membranes Neck: positive: No JVD, Trachea midline, Other (chronic tracheostomy with scant yellow drainage, functioning well after change out on 06/19/18) Respiratory: positive: Chest non-tender, No respiratory distress, Rhonchi Cardiovascular: positive: No gallop, Irregularly irregular, Systolic murmur, Decreased pulse(s) Peripheral Pulses: positive: 1+ Abdomen: positive: Non-tender, Nml bowel sounds Back: positive: Nml inspection Skin: positive: No rash, Warm, Dry, Pallor Extremities: positive: Non-tender, Full ROM, Pedal edema, Joint swelling Neurologic/Psychiatric: positive: Oriented x3, CN's nml (2-12), Motor nml, Weakness, Sensory loss, Slurred/abnml speech, Depressed mood/affect, Other (b aseline cognitive delay) Reflexes: Bicep (R): 3+, Bicep (L): 3+ - LABS Result Diagrams: 06/21/18 05:00 06/21/18 05:00 - DIAGNOSTIC IMAGING Diagnostic Imaging Results: Final report reviewed Diagnostic Imaging Results Comments: EXAM: CHEST RADIOGRAPHY EXAM DATE: 06/16/2018 04:17 PM IMPRESSION: Left basilar opacity suggestive of infiltrate and/or effusion, less likely atelectasis. - SEPSIS Current Stage of Sepsis: Resolved Possible source of Sepsis: Pulmonary Sepsis Criteria: Recorded Heart Rate greater than 90 bpm, Metabolic: lactate > 2 mmol/L - FOLLOW UP Follow Up: Follow up as per SNF recommendations - TIME SPENT Time Spent in Discharge (Minutes): 60
[2018-06-21] MEDS: FERROUS SULFATE 325 MG TABLET PO SCH (11:26)
[2018-06-22] MEDS ORDERED: predniSONE 20 MG TABLET PO SCH (08:00)
== END 2018-06-21 14:19 | DRG 871 ==
LOC: EDUNIT# → ED 15:42 → MS2 17:43
PROVIDERS: ADMIT Nurse Practitioner Gerontology; ATTEND Nurse Practitioner
DX: A41.9 Sepsis, unspecified organism (principal); J18.1 Lobar pneumonia, unspecified organism; J15.0 Pneumonia due to Klebsiella pneumoniae; J44.0 Chronic obstructive pulmonary disease with (acute) lower respiratory infection; I11.0 Hypertensive heart disease with heart failure; I50.9 Heart failure, unspecified; I13.0 Hypertensive heart and chronic kidney disease with heart failure and stage 1 through stage 4 chronic kidney disease, or unspecified chronic kidney disease; I50.22 Chronic systolic (congestive) heart failure; I47.2 Ventricular tachycardia; I42.9 Cardiomyopathy, unspecified; Z85.21 Personal history of malignant neoplasm of larynx; F17.200 Nicotine dependence, unspecified, uncomplicated; Z93.0 Tracheostomy status; I25.10 Atherosclerotic heart disease of native coronary artery without angina pectoris; Z95.1 Presence of aortocoronary bypass graft; E11.9 Type 2 diabetes mellitus without complications; E78.00 Pure hypercholesterolemia, unspecified; K21.9 Gastro-esophageal reflux disease without esophagitis; M19.90 Unspecified osteoarthritis, unspecified site; E86.0 Dehydration; E83.51 Hypocalcemia; G47.30 Sleep apnea, unspecified; E11.22 Type 2 diabetes mellitus with diabetic chronic kidney disease; N18.2 Chronic kidney disease, stage 2 (mild); E11.51 Type 2 diabetes mellitus with diabetic peripheral angiopathy without gangrene; Z66 Do not resuscitate; Z16.12 Extended spectrum beta lactamase (ESBL) resistance; G47.00 Insomnia, unspecified; E11.649 Type 2 diabetes mellitus with hypoglycemia without coma; I48.2 Chronic atrial fibrillation; N40.0 Benign prostatic hyperplasia without lower urinary tract symptoms; F17.210 Nicotine dependence, cigarettes, uncomplicated; D50.9 Iron deficiency anemia, unspecified; G89.29 Other chronic pain; M54.5 Low back pain; Z95.810 Presence of automatic (implantable) cardiac defibrillator; G47.33 Obstructive sleep apnea (adult) (pediatric); I25.2 Old myocardial infarction; E78.5 Hyperlipidemia, unspecified; E83.42 Hypomagnesemia; Z79.02 Long term (current) use of antithrombotics/antiplatelets; Z99.81 Dependence on supplemental oxygen
CPT/HCPCS: 36415; 71045; 80053; 80202; 81001; 81003; 83036; 83605; 83690; 83735; 83880; 84484; 85025; 85610; 87040; 87070; 87077; 87086; 87181; 87205; 93005; 94640; 94644; 94645; 96361; 96365; 96375; 99284; 99285

== ENCOUNTER 2018-07-01 08:00 | Outpatient (CLI) | payer MEDICARE, OTHER ==
[2018-07-01 16:14] LABS: BASOPHILS # (AUTO) 0.1 10^3/uL (0.0-0.1); BASOPHILS % (AUTO) 0.9 %; EOSINOPHILS # (AUTO) 0.2 10^3/uL (0.0-0.7); EOSINOPHILS % (AUTO) 2.8 %; HGB - HEMOGLOBIN 10.1 g/dL (14.0-18.0); LYMPHOCYTES # (AUTO) 1.1 10^3/uL (1.5-3.5); LYMPHOCYTES % (AUTO) 16.2 %; MEAN CORPUSCULAR HGB CONC 32.7 g/dL (32.0-36.0); MEAN CORPUSCULAR VOLUME 82.4 fL (80.0-94.0); MEAN PLATELET VOLUME 7.8 fL (7.4-11.4); MONOCYTES # (AUTO) 0.6 10^3/uL (0.0-1.0); MONOCYTES % (AUTO) 8.2 %; NEUTROPHILS # (AUTO) 4.9 10^3/uL (1.5-6.6); NEUTROPHILS % (AUTO) 71.9 %; PLT - PLATELET COUNT 290 10^3/uL (130-450); RED BLOOD COUNT 3.74 10^6/uL (4.70-6.10); RED CELL DISTRIBUTION WIDTH 17.4 % (12.0-15.0); WHITE BLOOD COUNT 6.8 x10^3/uL (4.8-10.8)
[2018-07-01 16:25] LABS: CALCIUM 8.6 mg/dL (8.5-10.3)
== END 2018-07-01 23:59 | disposition home or self-care (01) ==
LOC: LAB.R 08:00
DX: J18.9 Pneumonia, unspecified organism (principal); E11.9 Type 2 diabetes mellitus without complications; I50.9 Heart failure, unspecified
CPT/HCPCS: 80048; 85025

== ENCOUNTER 2018-07-22 08:00 | Outpatient (CLI) | payer MEDICARE, OTHER ==
[2018-07-18 15:50] LABS: BASOPHILS # (AUTO) 0.1 10^3/uL (0.0-0.1); BASOPHILS % (AUTO) 1.1 %; EOSINOPHILS # (AUTO) 0.2 10^3/uL (0.0-0.7); EOSINOPHILS % (AUTO) 2.2 %; HGB - HEMOGLOBIN 10.8 g/dL (14.0-18.0); LYMPHOCYTES # (AUTO) 1.6 10^3/uL (1.5-3.5); LYMPHOCYTES % (AUTO) 21.4 %; MEAN CORPUSCULAR HGB CONC 32.3 g/dL (32.0-36.0); MEAN CORPUSCULAR VOLUME 80.7 fL (80.0-94.0); MEAN PLATELET VOLUME 7.8 fL (7.4-11.4); MONOCYTES # (AUTO) 0.7 10^3/uL (0.0-1.0); MONOCYTES % (AUTO) 9.7 %; NEUTROPHILS # (AUTO) 4.8 10^3/uL (1.5-6.6); NEUTROPHILS % (AUTO) 65.6 %; PLT - PLATELET COUNT 396 10^3/uL (130-450); RED BLOOD COUNT 4.16 10^6/uL (4.70-6.10); WHITE BLOOD COUNT 7.3 x10^3/uL (4.8-10.8)
[2018-07-18 15:51] LABS: CALCIUM 8.5 mg/dL (8.5-10.3); CREATININE 1.1 mg/dL (0.6-1.2)
== END 2018-07-22 23:59 | disposition home or self-care (01) ==
LOC: LAB.R 08:00
DX: I50.20 Unspecified systolic (congestive) heart failure (principal); D64.9 Anemia, unspecified; E11.9 Type 2 diabetes mellitus without complications
CPT/HCPCS: 80048; 85025

== ENCOUNTER 2018-07-23 10:47 | Outpatient (CLI) | payer MEDICARE, OTHER | END 2018-07-23 10:48 | disposition critical access hospital (66) | LOC: EMS 10:47 | PROVIDERS: ATTEND Surgery | DX: R00.2 Palpitations (principal) | CPT/HCPCS: A0425; A0429 ==

== ENCOUNTER 2018-07-23 10:56 | Emergency (ER) | payer MEDICARE, OTHER ==
--- NOTE | 2018-07-23 11:48 | XRAY Report ---
Reason: palpations Procedure Date: 07/23/2018 Accession Number: [id number] / [id number] Procedure: XR - Chest 1 View X-Ray CPT Code: 93595 FULL RESULT: EXAM: CHEST RADIOGRAPHY EXAM DATE: 07/23/2018 11:18 AM. CLINICAL HISTORY: Palpations. COMPARISON: CHEST 1 VIEW 06/16/2018 4:06 PM. TECHNIQUE: 1 view. FINDINGS: There is redemonstration of postoperative changes consistent with a median sternotomy. There is redemonstration of a tracheostomy tube and pacemaker. The wires appear similar to the previous study. There is mild cardiomegaly. Mild perihilar infiltrates are noted. There is a small left pleural effusion. No pneumothorax is seen. IMPRESSION: Mild to moderate CHF with interval progression when compared to the previous study. RADIA
--- NOTE | 2018-07-23 11:55 | ED Physician Documentation ---
History of Present Illness - Stated complaint Stated Complaint: IRREGULAR HR - Chief complaint Chief Complaint: Cardiac - History obtained from History obtained from: Patient - History of Present Illness Timing: Today Pain level max: 0 Pain level now: 0 - Additonal information Additional information: 72-year-old male lives at [facility], found to have an elevated heart rate today, also found to be irregular. He states he does not believe he has a history of atrial fibrillation. Does have an AICD in place. Nothing makes it better. Nothing makes it worse Has a tracheostomy. Review of Systems Ten Systems: 10 systems reviewed and negative Constitutional: denies: Fever, Chills Ears: denies: Ear pain Nose: denies: Rhinorrhea / runny nose, Congestion Throat: denies: Sore throat Cardiac: denies: Chest pain / pressure Respiratory: denies: Dyspnea, Cough, Hemoptysis, Wheezing GI: denies: Nausea, Vomiting, Diarrhea Skin: denies: Rash Musculoskeletal: denies: Neck pain, Back pain Neurologic: denies: Headache PD PAST MEDICAL HISTORY - Past Medical History Cardiovascular: Congestive heart failure, Hypertension, High cholesterol, Coronary artery disease, [place] Respiratory: COPD, Shortness of breath, Sleep apnea, CPAP use, Other Neuro: None Endocrine/Autoimmune: Type 2 diabetes GI: GERD : None HEENT: Other Psych: None Musculoskeletal: Osteoarthritis Derm: None - Past Surgical History Past Surgical History: Yes General: Other Cardiovascular: CABG HEENT: Cataracts, Tracheostomy - Present Medications Home Medications: Ambulatory Orders Medication Instructions Recorded Confirmed Warfarin Sodium [Coumadin] 5 mg PO DAILY 02/14/17 06/17/18 Albuterol Sulfate [Proair Hfa 2 puffs INH Q4H PRN 04/05/17 06/17/18 Inhaler] B6/Levomefolate/B12/Ala/If 1 tab PO BID 04/19/18 06/17/18 [Abatrex with Ala Tablet] Losartan [Cozaar] 50 mg PO DAILY 04/19/18 06/17/18 Amitriptyline [Elavil] 10 mg PO DAILY 06/17/18 06/17/18 Aspirin [Aspirin EC] 81 mg PO DAILY 06/17/18 06/17/18 Atorvastatin Calcium 80 mg PO QPM 06/17/18 06/17/18 Acetaminophen [Tylenol] 650 mg PO Q4HR PRN #90 tablet 06/21/18 Amox/Clav 875/125 [Augmentin 1 tab PO BID #20 tablet 06/21/18 875/125] Chlorhexidine Gluconate [Peridex] 15 ml MM TID #90 mouthwash 06/21/18 Enoxaparin [Lovenox] 80 mg SUBQ Q12H #6 syringe 06/21/18 Ferrous Gluconate [Iron] 240 mg PO DAILY #30 tablet 06/21/18 Fluticasone [Flonase] 1 sprays SINTIA DAILY #1 bottle 06/21/18 Furosemide [Lasix] 20 mg PO DAILY #30 tablet 06/21/18 Metoprolol Succinate [Toprol Xl] 50 mg PO BIDWM #60 tablet 06/21/18 Polyethylene Glycol 3350 [Miralax] 17 gm PO DAILY #30 packet 06/21/18 Potassium Chloride [Micro-K] 10 meq PO DAILYWM #30 capsule 06/21/18 Saccharomyces Boulardii [Florastor] 250 mg PO BID #60 capsule 06/21/18 Tamsulosin [Flomax] 0.4 mg PO DAILY #30 capsule 06/21/18 guaiFENesin [Mucinex] 600 mg PO BID PRN #60 tablet 06/21/18 metFORMIN [Glucophage] 500 mg PO BIDWM #60 tablet 06/21/18 predniSONE [Deltasone] 20 mg PO DAILYWM #7 tablet 06/21/18 traZODone [Desyrel] 50 mg PO QPM #30 tablet 06/21/18 - Allergies Allergies/Adverse Reactions: Allergies Allergy/AdvReac Type Severity Reaction Status Date / Time No Known Drug Allergies Allergy Verified 07/23/18 11:04 - Social History Does the pt smoke?: Yes Smoking Status: Current every day smoker Does the pt drink ETOH?: No Does the pt have substance abuse?: No - Immunizations Immunizations are current?: Yes - POLST Patient has POLST: No POLST Status: DNR PD ED PE NORMAL - Vitals Vital signs reviewed: Yes - General General: Alert and oriented X 3, No acute distress, Well developed/nourished - HEENT HEENT: PERRL, Moist mucous membranes - Neck Neck: Supple, no meningeal sign, Other (trach in place) - Cardiac Cardiac: Strong equal pulses, Other (Irregularly irregular) - Respiratory Respiratory: No respiratory distress, Clear bilaterally - Abdomen Abdomen: Soft, Non tender, Non distended - Derm Derm: Warm and dry, No rash - Extremities Extremities: No edema - Neuro Neuro: Alert and oriented X 3 - Psych Psych: Normal mood, Normal affect Results - Vitals Vitals: Vital Signs - 24 hr 07/23/18 07/23/18 07/23/18 10:57 12:30 12:31 Temperature 36.8 C Heart Rate 126 H 111 H 107 H Respiratory 25 H 18 21 Rate Blood Pressure 128/73 134/73 H 151/61 H O2 Saturation 94 96 97 07/23/18 07/23/18 07/23/18 12:33 13:31 13:54 Temperature 37 C Heart Rate 96 103 H 104 H Respiratory 20 18 21 Rate Blood Pressure 142/92 H 147/66 H 142/90 H O2 Saturation 96 96 95 Oxygen O2 Source [Without Activity] Nasal cannula O2 Source [With Activity] Nasal cannula O2 Source Nasal cannula Oxygen Flow Rate 2 - EKG (time done) 1117 Rate: Rate (enter#) (131) Rhythm: Atrial fibrillation (RVR) Intervals: RBBB, Other (LAFB) QRS: Normal, LVH Ischemia: Non specific changes - Labs Labs: Laboratory Tests 07/23/18 07/23/18 07/23/18 11:37 11:37 11:37 WBC 8.4 RBC 4.09 L Hgb 10.6 L Hct 32.4 L MCV 79.1 L MCH 25.9 L MCHC 32.8 RDW 16.9 H Plt Count 427 MPV 7.5 Neut # (Auto) 5.8 Lymph # (Auto) 1.5 Williams # (Auto) 0.8 Eos # (Auto) 0.2 Baso # (Auto) 0.1 Absolute Nucleated RBC 0.00 Nucleated RBC % 0.0 Sodium 140 Potassium 3.6 Chloride 99 L Carbon Dioxide 30 Anion Gap 11.0 BUN 18 Creatinine 1.0 Estimated GFR (MDRD) 73 L Glucose 242 H Calcium 8.6 Total Bilirubin 0.4 AST 14 ALT 13 Alkaline Phosphatase 69 Troponin I < 0.04 Total Protein 7.1 Albumin 3.2 Globulin 3.9 Albumin/Globulin Ratio 0.8 L Lipase 28 - Rads (name of study) cxr Radiology: Prelim report reviewed, EMP read contemporaneously, See rad report (Mild to moderate CHF with interval progression when compared to previous study) PD MEDICAL DECISION MAKING - ED course Complexity details: reviewed results, re-evaluated patient, considered differential, d/w patient ED course: 72-year-old male presents to the emergency department atrial fibrillation with rapid ventricular response. Does have a history of same upon chart review. He is also in fluid overload and given extra dose of Lasix. Heart rate decreased nicely with a dose of diltiazem. We will continue his oral medications at home and follow-up with his doctor. Patient has no complaints at this time and states he feels better. Patient counseled regarding signs and symptoms for which I believe and urgent re-evaluation would be necessary. Patient with good understanding of and agreement to plan and is comfortable going home at this time This document was made in part using voice recognition software. While efforts are made to proofread this document, sound alike and grammatical errors may occur. Departure - Departure Disposition: 01 Home, Self Care Clinical Impression: Atrial fibrillation Qualifiers: Atrial fibrillation type: unspecified Qualified Code(s): I48.91 - Unspecified atrial fibrillation Condition: Good Instructions: ED Afib Follow-Up: Raul Delaney MD [Primary Care Provider] - Within 1 week Comments: Continue your current medications at home. Return if you worsen. Follow-up with your doctor for further care Discharge Date/Time: 07/23/18 14:31
[2018-07-23 11:56] LABS: BASOPHILS # (AUTO) 0.1 10^3/uL (0.0-0.1); BASOPHILS % (AUTO) 0.9 %; EOSINOPHILS # (AUTO) 0.2 10^3/uL (0.0-0.7); EOSINOPHILS % (AUTO) 2.5 %; HGB - HEMOGLOBIN 10.6 g/dL (14.0-18.0); LYMPHOCYTES # (AUTO) 1.5 10^3/uL (1.5-3.5); LYMPHOCYTES % (AUTO) 18.3 %; MEAN CORPUSCULAR HEMOGLOBIN 25.9 pg (27.0-31.0); MEAN CORPUSCULAR HGB CONC 32.8 g/dL (32.0-36.0); MEAN CORPUSCULAR VOLUME 79.1 fL (80.0-94.0); MEAN PLATELET VOLUME 7.5 fL (7.4-11.4); MONOCYTES # (AUTO) 0.8 10^3/uL (0.0-1.0); MONOCYTES % (AUTO) 9.8 %; NEUTROPHILS # (AUTO) 5.8 10^3/uL (1.5-6.6); NEUTROPHILS % (AUTO) 68.5 %; PLT - PLATELET COUNT 427 10^3/uL (130-450); RED BLOOD COUNT 4.09 10^6/uL (4.70-6.10); RED CELL DISTRIBUTION WIDTH 16.9 % (12.0-15.0); WHITE BLOOD COUNT 8.4 x10^3/uL (4.8-10.8)
[2018-07-23 12:08] LABS: CALCIUM 8.6 mg/dL (8.5-10.3)
[2018-07-23] MEDS ORDERED: diltiaZEM INJ 5 MG/ML VIAL IVP STA (12:20)
[2018-07-23] MEDS ORDERED: diltiaZEM 30 MG TABLET PO STA (13:21)
[2018-07-23] MEDS ORDERED: FUROSEMIDE 40 MG/4 ML VIAL IVP STA (13:23)
[2018-07-23 13:55] VITALS: BP 142/90
[2018-07-23 15:40] LABS: ALBUMIN 3.2 g/dL (3.2-5.5); ALBUMIN/GLOBULIN RATIO 0.8 (1.0-2.2); BILIRUBIN,TOTAL 0.4 mg/dL (0.2-1.0); TOTAL PROTEIN 7.1 g/dL (6.7-8.2)
== END 2018-07-23 14:31 | disposition home or self-care (01) ==
LOC: ED 10:56
DX: I48.91 Unspecified atrial fibrillation (principal); I11.0 Hypertensive heart disease with heart failure; I50.9 Heart failure, unspecified; E78.00 Pure hypercholesterolemia, unspecified; I25.10 Atherosclerotic heart disease of native coronary artery without angina pectoris; E11.9 Type 2 diabetes mellitus without complications; J44.9 Chronic obstructive pulmonary disease, unspecified; F17.200 Nicotine dependence, unspecified, uncomplicated; I25.2 Old myocardial infarction; Z95.1 Presence of aortocoronary bypass graft; Z95.810 Presence of automatic (implantable) cardiac defibrillator; Z93.0 Tracheostomy status; Z66 Do not resuscitate; Z79.899 Other long term (current) drug therapy; Z79.01 Long term (current) use of anticoagulants; Z79.82 Long term (current) use of aspirin; Z79.84 Long term (current) use of oral hypoglycemic drugs
CPT/HCPCS: 36415; 71045; 80053; 83690; 84484; 85025; 93005; 96374; 96375; 99283; 99284

== ENCOUNTER 2018-07-24 03:10 | Outpatient (CLI) | payer SELFPAY | END 2018-07-24 03:11 | disposition EMS.NT | LOC: EMS 03:10 | PROVIDERS: ATTEND Surgery | DX: Z03.89 Encounter for observation for other suspected diseases and conditions ruled out (principal) ==

== ENCOUNTER 2018-08-07 08:00 | Outpatient (CLI) | payer MEDICARE, OTHER ==
[2018-08-07 10:23] LABS: BASOPHILS # (AUTO) 0.2 10^3/uL (0.0-0.1); BASOPHILS % (AUTO) 2.2 %; EOSINOPHILS # (AUTO) 0.3 10^3/uL (0.0-0.7); EOSINOPHILS % (AUTO) 3.8 %; HGB - HEMOGLOBIN 10.1 g/dL (14.0-18.0); LYMPHOCYTES # (AUTO) 1.5 10^3/uL (1.5-3.5); LYMPHOCYTES % (AUTO) 19.8 %; MEAN CORPUSCULAR HEMOGLOBIN 25.7 pg (27.0-31.0); MEAN CORPUSCULAR HGB CONC 32.8 g/dL (32.0-36.0); MEAN CORPUSCULAR VOLUME 78.4 fL (80.0-94.0); MEAN PLATELET VOLUME 7.5 fL (7.4-11.4); MONOCYTES # (AUTO) 0.8 10^3/uL (0.0-1.0); MONOCYTES % (AUTO) 10.3 %; NEUTROPHILS # (AUTO) 4.9 10^3/uL (1.5-6.6); NEUTROPHILS % (AUTO) 63.9 %; PLT - PLATELET COUNT 539 10^3/uL (130-450); RED BLOOD COUNT 3.91 10^6/uL (4.70-6.10); RED CELL DISTRIBUTION WIDTH 16.8 % (12.0-15.0); WHITE BLOOD COUNT 7.7 x10^3/uL (4.8-10.8)
== END 2018-08-07 23:59 | disposition home or self-care (01) ==
LOC: LAB.R 08:00
DX: D64.9 Anemia, unspecified (principal); E11.9 Type 2 diabetes mellitus without complications
CPT/HCPCS: 82728; 85025

== ENCOUNTER 2018-09-06 08:00 | Outpatient (CLI) | payer MEDICARE, OTHER ==
[2018-09-06 19:20] LABS: BASOPHILS # (AUTO) 0.1 10^3/uL (0.0-0.1); EOSINOPHILS # (AUTO) 0.2 10^3/uL (0.0-0.7); EOSINOPHILS % (AUTO) 1.8 %; HGB - HEMOGLOBIN 10.6 g/dL (14.0-18.0); LYMPHOCYTES # (AUTO) 1.5 10^3/uL (1.5-3.5); LYMPHOCYTES % (AUTO) 16.2 %; MEAN CORPUSCULAR HEMOGLOBIN 24.7 pg (27.0-31.0); MEAN CORPUSCULAR HGB CONC 31.5 g/dL (32.0-36.0); MEAN CORPUSCULAR VOLUME 78.3 fL (80.0-94.0); MEAN PLATELET VOLUME 7.8 fL (7.4-11.4); MONOCYTES # (AUTO) 0.6 10^3/uL (0.0-1.0); MONOCYTES % (AUTO) 6.8 %; NEUTROPHILS # (AUTO) 6.8 10^3/uL (1.5-6.6); NEUTROPHILS % (AUTO) 74.2 %; PLT - PLATELET COUNT 372 10^3/uL (130-450); RED BLOOD COUNT 4.32 10^6/uL (4.70-6.10); RED CELL DISTRIBUTION WIDTH 18.4 % (12.0-15.0); WHITE BLOOD COUNT 9.2 x10^3/uL (4.8-10.8)
[2018-09-06 19:29] LABS: ALBUMIN 3.7 g/dL (3.2-5.5); ALBUMIN/GLOBULIN RATIO 1.1 (1.0-2.2); BILIRUBIN,TOTAL 0.3 mg/dL (0.2-1.0); CALCIUM 7.3 mg/dL (8.5-10.3); CREATININE 1.3 mg/dL (0.6-1.2); TOTAL PROTEIN 7.2 g/dL (6.7-8.2)
[2018-09-06 20:01] LABS: HB2 TOTAL 11.4 g/dL; HEMOGLOBIN A1C 0.82 g/dL; HEMOGLOBIN A1C % 8.7 % (4.6-6.2)
== END 2018-09-06 23:59 | disposition home or self-care (01) ==
LOC: LAB.N 08:00
PROVIDERS: ATTEND Nurse Practitioner Gerontology
DX: I48.91 Unspecified atrial fibrillation (principal); Z79.01 Long term (current) use of anticoagulants; D50.9 Iron deficiency anemia, unspecified; E11.65 Type 2 diabetes mellitus with hyperglycemia; I10 Essential (primary) hypertension
CPT/HCPCS: 36415; 80053; 83036; 84443; 85025; 85610

== ENCOUNTER 2018-09-17 14:19 | Outpatient (CLI) | payer MEDICARE, OTHER | END 2018-09-17 14:20 | disposition critical access hospital (66) | LOC: EMS 14:19 | PROVIDERS: ATTEND Surgery | DX: R42 Dizziness and giddiness (principal); R68.89 Other general symptoms and signs; R73.09 Other abnormal glucose | CPT/HCPCS: A0425; A0429 ==

== ENCOUNTER 2018-09-17 14:36 | Emergency (ER) | payer MEDICARE, OTHER ==
--- NOTE | 2018-09-17 14:54 | ED Physician Documentation ---
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 He also has a productive cough for a few days and shortness of breath. No fevers but he has chills.) Review of Systems Ten Systems: 10 systems reviewed and negative Constitutional: reports: Chills. denies: Fever Nose: reports: Rhinorrhea / runny nose, Congestion Throat: denies: Sore throat Respiratory: reports: Dyspnea, Cough GI: denies: Abdominal Pain PD PAST MEDICAL HISTORY - Past Medical History Cardiovascular: Congestive heart failure, Hypertension, High cholesterol, Coronary artery disease, [place] Respiratory: COPD, Shortness of breath, Sleep apnea, CPAP use, Other Neuro: None Endocrine/Autoimmune: Type 2 diabetes GI: GERD : None HEENT: Other Psych: None Musculoskeletal: Osteoarthritis Derm: None - Past Surgical History Past Surgical History: Yes General: Other Cardiovascular: CABG HEENT: Cataracts, Tracheostomy - Present Medications Home Medications: Ambulatory Orders Medication Instructions Recorded Confirmed Warfarin Sodium [Coumadin] 5 mg PO DAILY 02/14/17 09/17/18 Albuterol Sulfate [Proair Hfa 2 puffs INH Q4H PRN 04/05/17 09/17/18 Inhaler] B6/Levomefolate/B12/Ala/If 1 tab PO BID 04/19/18 09/17/18 [Abatrex with Ala Tablet] Losartan [Cozaar] 50 mg PO DAILY 04/19/18 09/17/18 Amitriptyline [Elavil] 10 mg PO DAILY 06/17/18 09/17/18 Aspirin [Aspirin EC] 81 mg PO DAILY 06/17/18 09/17/18 Atorvastatin Calcium 80 mg PO QPM 06/17/18 09/17/18 Acetaminophen [Tylenol] 650 mg PO Q4HR PRN #90 tablet 06/21/18 09/17/18 Chlorhexidine Gluconate [Peridex] 15 ml MM TID #90 mouthwash 06/21/18 09/17/18 Enoxaparin [Lovenox] 80 mg SUBQ Q12H #6 syringe 06/21/18 09/17/18 Ferrous Gluconate [Iron] 240 mg PO DAILY #30 tablet 06/21/18 09/17/18 Fluticasone [Flonase] 1 sprays SINTIA DAILY #1 bottle 06/21/18 09/17/18 Furosemide [Lasix] 20 mg PO DAILY #30 tablet 06/21/18 09/17/18 Metoprolol Succinate [Toprol Xl] 50 mg PO BIDWM #60 tablet 06/21/18 09/17/18 Polyethylene Glycol 3350 [Miralax] 17 gm PO DAILY #30 packet 06/21/18 09/17/18 Potassium Chloride [Micro-K] 10 meq PO DAILYWM #30 capsule 06/21/18 09/17/18 Saccharomyces Boulardii [Florastor] 250 mg PO BID #60 capsule 06/21/18 09/17/18 Tamsulosin [Flomax] 0.4 mg PO DAILY #30 capsule 06/21/18 09/17/18 guaiFENesin [Mucinex] 600 mg PO BID PRN #60 tablet 06/21/18 09/17/18 metFORMIN [Glucophage] 500 mg PO BIDWM #60 tablet 06/21/18 09/17/18 predniSONE [Deltasone] 20 mg PO DAILYWM #7 tablet 06/21/18 09/17/18 traZODone [Desyrel] 50 mg PO QPM #30 tablet 06/21/18 09/17/18 Levofloxacin [Levaquin] 750 mg PO DAILY #7 tablet 09/17/18 Oxycodone HCl/Acetaminophen 1 - 2 each PO Q6H PRN #14 tablet 09/17/18 [Percocet 5-325 mg Tablet] - Allergies Allergies/Adverse Reactions: Allergies Allergy/AdvReac Type Severity Reaction Status Date / Time No Known Drug Allergies Allergy Verified 09/17/18 14:44 - Social History Does the pt smoke?: Yes Smoking Status: Unknown if ever smoked Does the pt drink ETOH?: No Does the pt have substance abuse?: No - Family History Family history: reports: Non contributory - Immunizations Immunizations are current?: Yes - POLST Patient has POLST: No POLST Status: DNR PD ED PE NORMAL - Vitals Vital signs reviewed: Yes - General General: Alert and oriented X 3, No acute distress - HEENT HEENT: Other (Tracheostomy in place) - Neck Neck: Supple, no meningeal sign, No bony TTP - Cardiac Cardiac: RRR, No murmur - Respiratory Respiratory: Other (Mildly labored breathing, rhonchorous at the right base) - Abdomen Abdomen: Soft, Non tender - Back Back: No CVA TTP, No spinal TTP - Derm Derm: Normal color, Warm and dry - Extremities Extremities: No edema, No calf tenderness / cord - Neuro Neuro: Alert and oriented X 3, Normal speech Results - Vitals Vitals: Vital Signs - 24 hr 09/17/18 14:39 Temperature 35.7 C L Heart Rate 71 Respiratory 24 Rate Blood Pressure 110/65 O2 Saturation 98 Oxygen O2 Source [] Nasal cannula O2 Source [] Nasal cannula O2 Source Nasal cannula - EKG (time done) 1451 Rate: Rate (enter#) (73) Rhythm: Paced (atrial paced) Intervals: LBBB Computer interpretation: Agree with computer - Labs Labs: Laboratory Tests 09/17/18 09/17/18 09/17/18 15:05 15:05 15:05 WBC 10.5 RBC 4.82 Hgb 11.5 L Hct 36.8 L MCV 76.4 L MCH 23.9 L MCHC 31.2 L RDW 18.0 H Plt Count 389 MPV 7.2 L Neut # (Auto) 8.8 H Lymph # (Auto) 1.1 L Howell # (Auto) 0.5 Eos # (Auto) 0.0 Baso # (Auto) 0.1 Absolute Nucleated RBC 0.00 Nucleated RBC % 0.0 PT 29.8 H INR 2.7 H Sodium 138 Potassium 3.9 Chloride 95 L Carbon Dioxide 25 Anion Gap 18.0 H BUN 32 H Creatinine 1.4 H Estimated GFR (MDRD) 50 L Glucose 125 H Lactic Acid Calcium 7.2 L Total Bilirubin 0.3 AST 30 ALT 19 Alkaline Phosphatase 67 Troponin I Total Protein 8.1 Albumin 3.6 Globulin 4.5 H Albumin/Globulin Ratio 0.8 L Lipase 25 09/17/18 09/17/18 15:05 15:05 WBC RBC Hgb Hct MCV MCH MCHC RDW Plt Count MPV Neut # (Auto) Lymph # (Auto) Howell # (Auto) Eos # (Auto) Baso # (Auto) Absolute Nucleated RBC Nucleated RBC % PT INR Sodium Potassium Chloride Carbon Dioxide Anion Gap BUN Creatinine Estimated GFR (MDRD) Glucose Lactic Acid 3.3 H* Calcium Total Bilirubin AST ALT Alkaline Phosphatase Troponin I < 0.04 Total Protein Albumin Globulin Albumin/Globulin Ratio Lipase - Rads (name of study) 2v chest Radiology: EMP read contemporaneously (Possible subtle left basilar opacification) PD MEDICAL DECISION MAKING - ED course ED course: 72-year-old gentleman presents with lightheadedness today. He has multiple yudith rbidities. He possibly has pneumonia on x-ray, but more impressive is a lab sets that is consistent with dehydration with prerenal azotemia and modest elevated lactate. He was administered IV fluids and oral Levaquin. He also needed some pain medication for chronic hip pain. In top of that he requested a sleeping pill but I told him we could only give him either pain medication or a sleeping pill. Departure - Departure Disposition: Home, Self Care Clinical Impression: Tracheostomy present, Dependence on continuous supplemental oxygen, S/P CABG (coronary artery bypass graft), ICD (implantable cardioverter-defibrillator) in place, Dehydration Chronic low back pain Qualifiers: Back pain laterality: left Sciatica presence: without sciatica Qualified Code(s): M54.5 - Low back pain; G89.29 - Other chronic pain Condition: Good Record reviewed to determine appropriate education?: Yes Instructions: ED Dehydration Prescriptions: Levofloxacin [Levaquin] 750 mg PO DAILY #7 tablet Oxycodone HCl/Acetaminophen [Percocet 5-325 mg Tablet] 1 - 2 each PO Q6H PRN #14 tablet PRN Reason: pain Comments: Your work-up today demonstrates that you are mildly dehydrated. Drink plenty of fluids. We are putting you on some antibiotics for a potential left base pneumonia. It is likely that the antibiotics will make your INR go up/make your blood thinner. Skip your blood thinner tomorrow. Have your INR rechecked on , it is likely that you will need to skip more doses while you are on the antibiotic. Return for new or worsening symptoms. Follow-up with your doctor on Sunday.
[2018-09-17 15:19] LABS: BASOPHILS # (AUTO) 0.1 10^3/uL (0.0-0.1); BASOPHILS % (AUTO) 0.6 %; EOSINOPHILS % (AUTO) 0.5 %; HGB - HEMOGLOBIN 11.5 g/dL (14.0-18.0); LYMPHOCYTES # (AUTO) 1.1 10^3/uL (1.5-3.5); LYMPHOCYTES % (AUTO) 10.4 %; MEAN CORPUSCULAR HEMOGLOBIN 23.9 pg (27.0-31.0); MEAN CORPUSCULAR HGB CONC 31.2 g/dL (32.0-36.0); MEAN CORPUSCULAR VOLUME 76.4 fL (80.0-94.0); MEAN PLATELET VOLUME 7.2 fL (7.4-11.4); MONOCYTES # (AUTO) 0.5 10^3/uL (0.0-1.0); MONOCYTES % (AUTO) 4.9 %; NEUTROPHILS # (AUTO) 8.8 10^3/uL (1.5-6.6); NEUTROPHILS % (AUTO) 83.6 %; PLT - PLATELET COUNT 389 10^3/uL (130-450); RED BLOOD COUNT 4.82 10^6/uL (4.70-6.10); WHITE BLOOD COUNT 10.5 x10^3/uL (4.8-10.8)
[2018-09-17 15:22] LABS: INR 2.7 (0.8-1.2); PT - PROTHROMBIN TIME 29.8 secs (9.9-12.6)
[2018-09-17 15:28] LABS: ALBUMIN 3.6 g/dL (3.2-5.5); ALBUMIN/GLOBULIN RATIO 0.8 (1.0-2.2); BILIRUBIN,TOTAL 0.3 mg/dL (0.2-1.0); CALCIUM 7.2 mg/dL (8.5-10.3); CREATININE 1.4 mg/dL (0.6-1.2); TOTAL PROTEIN 8.1 g/dL (6.7-8.2)
[2018-09-17] MEDS ORDERED: SODIUM CHLORIDE 0.9% 1,000 ML IV ONE (15:43)
--- NOTE | 2018-09-17 15:49 | XRAY Report ---
Reason: dizzy cough Procedure Date: 09/17/2018 Accession Number: [id number] / [id number] Procedure: XR - Chest 2 View X-Ray CPT Code: 42846 FULL RESULT: EXAM: CHEST RADIOGRAPHY EXAM DATE: 09/17/2018 03:22 PM. CLINICAL HISTORY: Cough. Syncope and collapse. COMPARISON: CHEST 1 VIEW 07/23/2018 11:05 AM. TECHNIQUE: 2 views. FINDINGS: Lungs/Pleura: Mild hazy opacification of the left lung base suggesting effusion is seen. The right lung is clear. There is no pneumothorax or vascular congestion. Mediastinum: Cardiac silhouette is mildly enlarged. Median sternotomy wires and surgical clips consistent with CABG is seen. Left sided cardiac implant is in place with leads projecting over right atrium and right ventricular apex. Other: Tracheostomy tube is seen in place. IMPRESSION: Slightly increasing left basilar hazy opacification which may represent increasing effusion. Underlying pneumonia is not excluded. No change otherwise. RADIA
[2018-09-17] MEDS ORDERED: levoFLOXacin 250 MG TABLET PO STA (15:58)
[2018-09-17 16:18] VITALS: BP 127/71
== END 2018-09-17 17:16 | disposition home or self-care (01) ==
LOC: EDUNIT# → ED 14:36
DX: E86.0 Dehydration (principal); G89.29 Other chronic pain; M54.9 Dorsalgia, unspecified; I10 Essential (primary) hypertension; E11.9 Type 2 diabetes mellitus without complications; I25.810 Atherosclerosis of coronary artery bypass graft(s) without angina pectoris; Z79.84 Long term (current) use of oral hypoglycemic drugs; Z99.81 Dependence on supplemental oxygen; Z95.810 Presence of automatic (implantable) cardiac defibrillator; Z93.0 Tracheostomy status; Z85.21 Personal history of malignant neoplasm of larynx; Z79.01 Long term (current) use of anticoagulants
CPT/HCPCS: 36415; 71046; 80053; 83605; 83690; 84484; 85025; 85610; 87040; 93005; 96360; 99284; A9270

== ENCOUNTER 2018-09-18 13:37 | Outpatient (CLI) | payer MEDICARE, OTHER | END 2018-09-18 13:38 | disposition critical access hospital (66) | LOC: EMS 13:37 | PROVIDERS: ATTEND Surgery | DX: R06.00 Dyspnea, unspecified (principal); R53.1 Weakness | CPT/HCPCS: A0425; A0429 ==

== ENCOUNTER 2018-09-18 13:54 | Inpatient (IN) | payer MEDICARE, OTHER ==
[2018-09-18] MEDS ORDERED: SODIUM CHLORIDE 0.9% 1,000 ML IV ONE ×3 (14:27→16:01)
--- NOTE | 2018-09-18 14:31 | ED Physician Documentation ---
History of Present Illness - Stated complaint Stated Complaint: DIFFICULTY BREATHING - Chief complaint Chief Complaint: Resp - History obtained from History obtained from: Patient, EMS - History of Present Illness Timing: How many days ago (3) Pain level max: 0 Pain level now: 0 Improved by: nothing Worsened by: nothing - Additonal information Additional information: states seen here yesterday for same. States feeling dizzy and coughing. Feeling very chilled. Has trach for laryngeal cancer. Has history of CHF. Took levaquin today. Review of Systems Ten Systems: 10 systems reviewed and negative Constitutional: reports: Chills. denies: Fever Ears: denies: Ear pain Nose: denies: Rhinorrhea / runny nose, Congestion Throat: denies: Sore throat Cardiac: denies: Chest pain / pressure Respiratory: reports: Cough. denies: Wheezing GI: denies: Abdominal Pain, Nausea, Vomiting, Diarrhea Skin: denies: Rash Musculoskeletal: denies: Neck pain, Back pain Neurologic: denies: Headache PD PAST MEDICAL HISTORY - Past Medical History Cardiovascular: Congestive heart failure, Hypertension, High cholesterol, Coronary artery disease, [place] Respiratory: COPD, Shortness of breath, Sleep apnea, CPAP use, Other Neuro: None Endocrine/Autoimmune: Type 2 diabetes GI: GERD : None HEENT: Other Psych: None Musculoskeletal: Osteoarthritis Derm: None - Past Surgical History Past Surgical History: Yes General: Other Cardiovascular: CABG HEENT: Cataracts, Tracheostomy - Present Medications Home Medications: Ambulatory Orders Medication Instructions Recorded Confirmed Albuterol Sulfate [Proair Hfa 2 puffs INH Q4H PRN 04/05/17 09/18/18 Inhaler] B6/Levomefolate/B12/Ala/If 1 tab PO BID 04/19/18 09/18/18 [Abatrex with Ala Tablet] Potassium Chloride [Micro-K] 10 meq PO DAILYWM #30 capsule 06/21/18 09/18/18 Tamsulosin [Flomax] 0.4 mg PO DAILY #30 capsule 06/21/18 09/18/18 Amiodarone HCl 200 mg PO DAILY 09/18/18 09/18/18 Fluticasone/Salmeterol [Advair Hfa 1 puffs INH BID 09/18/18 09/18/18 230-21 Mcg Inhaler] Furosemide 40 mg PO BID 09/18/18 09/18/18 Metoprolol Succinate 50 mg PO DAILY 09/18/18 09/18/18 SITagliptin [Januvia] 100 mg PO DAILY 09/18/18 09/18/18 Trazodone HCl 100 mg PO QPM 09/18/18 09/18/18 Warfarin Sodium 5 mg PO DAILY 09/18/18 09/18/18 glipiZIDE [Glipizide] 20 mg PO 0730,1630 09/18/18 09/18/18 metFORMIN [Glucophage] 1,000 mg PO BIDWM 09/18/18 09/18/18 - Allergies Allergies/Adverse Reactions: Allergies Allergy/AdvReac Type Severity Reaction Status Date / Time No Known Drug Allergies Allergy Verified 09/17/18 14:44 - Social History Does the pt smoke?: Yes Smoking Status: Unknown if ever smoked Does the pt drink ETOH?: No Does the pt have substance abuse?: No - Immunizations Immunizations are current?: Yes - POLST Patient has POLST: No POLST Status: DNR PD ED PE NORMAL - Vitals Vital signs reviewed: Yes - General General: Alert and oriented X 3, No acute distress, Well developed/nourished - HEENT HEENT: PERRL, Moist mucous membranes - Neck Neck: Supple, no meningeal sign - Cardiac Cardiac: RRR, Strong equal pulses - Respiratory Respiratory: No respiratory distress, Clear bilaterally, Other (rhonchi bibasilar.) - Abdomen Abdomen: Soft, Non tender, Non distended - Derm Derm: Warm and dry, No rash - Extremities Extremities: No calf tenderness / cord - Neuro Neuro: Alert and oriented X 3 - Psych Psych: Normal mood, Normal affect Results - Vitals Vitals: Vital Signs - 24 hr 09/18/18 09/18/18 14:16 15:00 Temperature 36 C L Heart Rate 82 83 Respiratory 26 H 19 Rate Blood Pressure 134/40 H 99/48 L O2 Saturation 100 96 Oxygen O2 Source [Without Activity] Nasal cannula O2 Source [With Activity] Nasal cannula O2 Source Room air - Labs Labs: Laboratory Tests 09/18/18 09/18/18 09/18/18 14:50 14:50 14:50 WBC 9.1 RBC 4.50 L Hgb 10.9 L Hct 34.4 L MCV 76.4 L MCH 24.1 L MCHC 31.6 L RDW 18.3 H Plt Count 350 MPV 7.5 Neut # (Auto) 7.6 H Lymph # (Auto) 1.0 L Barbour # (Auto) 0.5 Eos # (Auto) 0.0 Baso # (Auto) 0.0 Absolute Nucleated RBC 0.00 Nucleated RBC % 0.0 PT INR Sodium 138 Potassium 3.2 L Chloride 96 L Carbon Dioxide 23 Anion Gap 19.0 H BUN 29 H Creatinine 1.6 H Estimated GFR (MDRD) 43 L Glucose 194 H Lactic Acid 3.6 H* Calcium 6.6 L Magnesium Total Bilirubin 0.4 AST 29 ALT 17 Alkaline Phosphatase 60 Troponin I B-Natriuretic Peptide Total Protein 7.4 Albumin 3.6 Globulin 3.8 Albumin/Globulin Ratio 0.9 L Lipase 24 TSH Urine Color Urine Clarity Urine pH Ur Specific Downing Urine Protein Urine Glucose (UA) Urine Ketones Urine Occult Blood Urine Nitrite Urine Bilirubin Urine Urobilinogen Ur Leukocyte Esterase Ur Microscopic Review Urine Culture Comments 09/18/18 09/18/18 09/18/18 14:50 14:50 14:50 WBC RBC Hgb Hct MCV MCH MCHC RDW Plt Count MPV Neut # (Auto) Lymph # (Auto) Barbour # (Auto) Eos # (Auto) Baso # (Auto) Absolute Nucleated RBC Nucleated RBC % PT INR Sodium Potassium Chloride Carbon Dioxide Anion Gap BUN Creatinine Estimated GFR (MDRD) Glucose Lactic Acid Calcium Magnesium 0.5 L* Total Bilirubin AST ALT Alkaline Phosphatase Troponin I < 0.04 B-Natriuretic Peptide 78 Total Protein Albumin Globulin Albumin/Globulin Ratio Lipase TSH Urine Color Urine Clarity Urine pH Ur Specific Downing Urine Protein Urine Glucose (UA) Urine Ketones Urine Occult Blood Urine Nitrite Urine Bilirubin Urine Urobilinogen Ur Leukocyte Esterase Ur Microscopic Review Urine Culture Comments 09/18/18 09/18/18 09/18/18 14:50 14:54 15:03 WBC RBC Hgb Hct MCV MCH MCHC RDW Plt Count MPV Neut # (Auto) Lymph # (Auto) Barbour # (Auto) Eos # (Auto) Baso # (Auto) Absolute Nucleated RBC Nucleated RBC % PT 35.4 H INR 3.2 H Sodium Potassium Chloride Carbon Dioxide Anion Gap BUN Creatinine Estimated GFR (MDRD) Glucose Lactic Acid Calcium Magnesium Total Bilirubin AST ALT Alkaline Phosphatase Troponin I B-Natriuretic Peptide Total Protein Albumin Globulin Albumin/Globulin Ratio Lipase TSH 2.09 Urine Color LT. YELLOW Urine Clarity CLEAR Urine pH 5.5 Ur Specific Downing <=1.005 Urine Protein NEGATIVE Urine Glucose (UA) NEGATIVE Urine Ketones NEGATIVE Urine Occult Blood NEGATIVE Urine Nitrite NEGATIVE Urine Bilirubin NEGATIVE Urine Urobilinogen 0.2 (NORMAL) Ur Leukocyte Esterase NEGATIVE Ur Microscopic Review NOT INDICATED Urine Culture Comments NOT INDICATED - Rads (name of study) cxr Radiology: Prelim report reviewed, EMP read contemporaneously, See rad report (Lung volumes and heart size are relatively stable. 2. Interval decrease in opacity within the left lung base which could represent resolving infiltrate, improved aeration, and/or interval decrease in volume of pleural fluid. 3. No new areas of airspace disease are seen. 4. There is no evidence of pneumothorax. ) PD MEDICAL DECISION MAKING - ED course Complexity details: reviewed results, re-evaluated patient, considered differential, d/w patient, d/w garden consultant ED course: Patient with pneumonia and lactic acidosis. Appears significantly dehydrated. Took Levaquin prior to arrival. Given his rising lactate from yesterday, will admit for further care. Discussed the case with the hospitalist, Dr. Haas who accepts. This document was made in part using voice recognition software. While efforts are made to proofread this document, sound alike and grammatical errors may occur. Departure - Departure Disposition: 66 [facility] DC/Xfer Clinical Impression: Lactic acidosis, COPD exacerbation Pneumonia Qualifiers: Pneumonia type: due to unspecified organism Laterality: left Lung location: lower lobe of lung Qualified Code(s): J18.1 - Lobar pneumonia, unspecified organism Condition: Stable Discharge Date/Time: 09/18/18 17:00
[2018-09-18] MEDS ORDERED: IPRATROPIUM/ALBUTEROL 3 ML NEB INH STA (14:54)
--- NOTE | 2018-09-18 14:54 | XRAY Report ---
Reason: dyspnea Procedure Date: 09/18/2018 Accession Number: [id number] / [id number] Procedure: XR - Chest 1 View X-Ray CPT Code: 50027 FULL RESULT: EXAM: CHEST RADIOGRAPHY EXAM DATE: 09/18/2018 02:36 PM. CLINICAL HISTORY: Dyspnea COMPARISON: CHEST 2 VIEW 09/17/2018 3:07 PM. TECHNIQUE: 1 view. FINDINGS: Lungs/Pleura: Interval decrease in opacity within the left lung base. No new areas of airspace disease are seen. No evidence of pneumothorax. Mediastinum: There is mild cardiomegaly. Sternotomy wires are in place. Other: Tracheostomy is in place. IMPRESSION: 1. Lung volumes and heart size are relatively stable. 2. Interval decrease in opacity within the left lung base which could represent resolving infiltrate, improved aeration, and/or interval decrease in volume of pleural fluid. 3. No new areas of airspace disease are seen. 4. There is no evidence of pneumothorax. RADIA
[2018-09-18 15:01] LABS: BASOPHILS % (AUTO) 0.5 %; EOSINOPHILS % (AUTO) 0.4 %; HGB - HEMOGLOBIN 10.9 g/dL (14.0-18.0); LYMPHOCYTES % (AUTO) 10.7 %; MEAN CORPUSCULAR HEMOGLOBIN 24.1 pg (27.0-31.0); MEAN CORPUSCULAR HGB CONC 31.6 g/dL (32.0-36.0); MEAN CORPUSCULAR VOLUME 76.4 fL (80.0-94.0); MEAN PLATELET VOLUME 7.5 fL (7.4-11.4); MONOCYTES # (AUTO) 0.5 10^3/uL (0.0-1.0); MONOCYTES % (AUTO) 5.6 %; NEUTROPHILS # (AUTO) 7.6 10^3/uL (1.5-6.6); NEUTROPHILS % (AUTO) 82.8 %; PLT - PLATELET COUNT 350 10^3/uL (130-450); RED CELL DISTRIBUTION WIDTH 18.3 % (12.0-15.0); WHITE BLOOD COUNT 9.1 x10^3/uL (4.8-10.8)
[2018-09-18 15:20] LABS: ALBUMIN 3.6 g/dL (3.2-5.5); ALBUMIN/GLOBULIN RATIO 0.9 (1.0-2.2); BILIRUBIN,TOTAL 0.4 mg/dL (0.2-1.0); CALCIUM 6.6 mg/dL (8.5-10.3); CREATININE 1.6 mg/dL (0.6-1.2); TOTAL PROTEIN 7.4 g/dL (6.7-8.2)
[2018-09-18] MEDS ORDERED: methylPREDNISolone SUCCINATE 125 MG/2 ML VIAL IVP STA (15:32)
[2018-09-18 15:46] LABS: BILIRUBIN,URINE NEGATIVE (NEGATIVE); GLUCOSE, URINE (UA) NEGATIVE (NEGATIVE); KETONES,URINE (UA) NEGATIVE (NEGATIVE); LEUKOCYTE ESTERASE, URINE NEGATIVE (NEGATIVE); NITRITE,URINE NEGATIVE (NEGATIVE); OCCULT BLOOD,URINE NEGATIVE (NEGATIVE); PH,URINE 5.5 PH (5.0-7.5); PROTEIN,URINE NEGATIVE (NEGATIVE); UROBILINOGEN,URINE 0.2 (NORMAL) E.U./dL (NORMAL)
[2018-09-18 15:49] LABS: CLARITY,URINE CLEAR (CLEAR)
[2018-09-18] MEDS ORDERED: ACETAMINOPHEN 325 MG TABLET PO PRN (16:23)
[2018-09-18 16:29] LABS: INR 3.2 (0.8-1.2); PT - PROTHROMBIN TIME 35.4 secs (9.9-12.6)
--- NOTE | 2018-09-18 17:14 | HISTORY & PHYSICAL EXAMINATION ---
Respiratory Admission HPI - Admitted From Admitted from: ED - History Obtained From Records Reviewed: RN notes reviewed, Old records reviewed History obtained from: Patient Exam limitations: No limitations - History of Present Illness HPI Comment/Other: Fernandez Cast is a 71-year-old gentleman with a past medical history significant for hypertension, hyperlipidemia, hypocalcemia, GERD, coronary artery disease status post CABG with an ICD, Chronic atrial fibrillation chronically anticoagu lated on Coumadin, Stage C heart failure with structural heart disease with prior or current symptoms of a reduced ejection fraction (borderline), ejection fraction of 40-45% on his last echo in 03/2018, COPD on 2-3 L of oxygen at night, history of laryngeal cancer status post tracheostomy since 1989, obstructive sleep apnea with prior CPAP use, NIDDM type 2 diabetes mellitus, and osteoarthritis. He presented to the emergency department with a chief complaint of a 2-day history of productive cough, shortness of breath and rigors. Patient has had a history of pneumonias in the past and essentially was discharged from [facility] on 06/21/2018 to [facility] and was discharged in late July early August per history. Since then patient has been on Levaquin and had an ER visitation yesterday with a lactic acid of 3.3. Today's lactic acid is 3.9, however patient is on metformin as well as oral hypoglycemics. His potassium was 3.2, CBC was essentially unremarkable with microcytic anemia although he has a history of chronic iron deficiency anemia, UA was negative, LFTs were within normal limits, patient does have a history of chronic kidney disease stage II/III with a baseline creatinine ranging 0.9-1.5, current creatinine of 1.6 with acute renal insufficiency. Clinically patient appears dry and However not septic appearing. Patient had denied purulent or copious secretions from tracheostomy. BNP level was 78, INR was supratherapeutic at 3.2, glucose was elevated at 194, EKG showed left bundle branch block with 85 bpm. CXR revealed left basilar opacity suggestive of infiltrate and or effusion. On patient's last admission patient was going multidrug-resistant ESBL positive Klebsiella via with pansensitive Proteus and was previously placed on cefepime. Pt denies fever, chill, headache, chest pain, abdominal pain, nausea, vomiting, diarrhea, dysuria, hematouria, vision change, focus neurological deficits. As a result of his presentation, pt was admitted in the hospital. PMH/PSH - Past Medical History Cardiovascular: positive: Congestive heart failure, Hypertension, High choleste rol, Coronary artery disease, [place] Respiratory: positive: COPD, Pneumonia, Shortness of breath, Sleep apnea, CPAP use, Other Neuro: positive: None Endocrine/Autoimmune: positive: Type 2 diabetes GI: positive: GERD : positive: None HEENT: positive: Other Psych: positive: None Musculoskeletal: positive: Osteoarthritis Derm: positive: None MRSA Hx?: No - Past Surgical History General: positive: Other Cardiovascular: positive: CABG, AICD HEENT: positive: Cataracts, Tracheostomy Social & Family Hx - Social History Does the pt smoke?: Yes Smoking Status: Unknown if ever smoked Does the pt drink ETOH?: No Does the pt have substance abuse?: No - POLST Patient has POLST: No POLST Status: DNR Meds/Allgy - Home Medications Home Medications: Ambulatory Orders Medication Instructions Recorded Confirmed Albuterol Sulfate [Proair Hfa 2 puffs INH Q4H PRN 04/05/17 09/18/18 Inhaler] B6/Levomefolate/B12/Ala/If 1 tab PO BID 04/19/18 09/18/18 [Abatrex with Ala Tablet] Potassium Chloride [Micro-K] 10 meq PO DAILYWM #30 capsule 06/21/18 09/18/18 Tamsulosin [Flomax] 0.4 mg PO DAILY #30 capsule 06/21/18 09/18/18 Amiodarone HCl 200 mg PO DAILY 09/18/18 09/18/18 Fluticasone/Salmeterol [Advair Hfa 1 puffs INH BID 09/18/18 09/18/18 230-21 Mcg Inhaler] Furosemide 40 mg PO BID 09/18/18 09/18/18 Metoprolol Succinate 50 mg PO DAILY 09/18/18 09/18/18 SITagliptin [Januvia] 100 mg PO DAILY 09/18/18 09/18/18 Trazodone HCl 100 mg PO QPM 09/18/18 09/18/18 Warfarin Sodium 5 mg PO DAILY 09/18/18 09/18/18 glipiZIDE [Glipizide] 20 mg PO 0730,1630 09/18/18 09/18/18 metFORMIN [Glucophage] 1,000 mg PO BIDWM 09/18/18 09/18/18 - Allergies Allergies/Adverse Reactions: Allergies Allergy/AdvReac Type Severity Reaction Status Date / Time No Known Drug Allergies Allergy Verified 09/17/18 14:44 Review of Systems - Musculoskeletal Musculoskeletal: reports: Muscle weakness, Other (Muscle twitching with some spasms) - All Other Systems All Other Systems: reports: Reviewed and negative Prior Level of Functionality: Patient's prior baseline functional capacity unknown Exam - Vital Signs Reviewed Vital Signs: Yes Vital Signs: Vital Signs x48h Temp Pulse Resp BP Pulse Ox 09/18/18 16:56 86 16 130/52 L 98 09/18/18 15:00 83 19 99/48 L 96 09/18/18 14:16 36 C L 82 26 H 134/40 H 100 - Physical Exam General Appearance: positive: No acute distress, Alert, Mild distress, Other (Chronically ill-appearing) Eyes Bilateral: positive: Normal inspection, PERRL, EOMI ENT: positive: ENT inspection nml, Pharynx nml, Dry mucous membranes Neck: positive: Nml inspection, Thyroid nml, No JVD, Trachea midline, Other (Tracheostomy is clean dry and intact with no copious secretions). negative: Thyromegaly Respiratory: positive: Chest non-tender, No respiratory distress, Rales, Rhonchi (Bilateral feet rales more on the right lung base versus the left) Cardiovascular: positive: No murmur, No gallop, Irregularly irregular. negative: JVD present, Gallop/S4 Peripheral Pulses: positive: 2+ Abdomen: positive: Non-tender Skin: positive: No rash, Other ( trace bilateral edema) Extremities: positive: Non-tender, Full ROM, Pedal edema, Other. negative: Calf tenderness Neurologic/Psychiatric: positive: Oriented x3, CN's nml (2-12) Results - Lab Results Fish Bones: 09/18/18 14:50 09/18/18 14:50 Other Lab Results: Lab Results x24hrs 09/18/18 09/18/18 09/18/18 Range/Units 15:03 14:54 14:50 WBC (4.8-10.8) x10^3/uL RBC (4.70-6.10) 10^6/uL Hgb (14.0-18.0) g/dL Hct (42.0-52.0) % MCV (80.0-94.0) fL MCH (27.0-31.0) pg MCHC (32.0-36.0) g/dL RDW (12.0-15.0) % Plt Count (130-450) 10^3/uL MPV (7.4-11.4) fL Neut # (Auto) (1.5-6.6) 10^3/uL Lymph # (Auto) (1.5-3.5) 10^3/uL [place] # (Auto) (0.0-1.0) 10^3/uL Eos # (Auto) (0.0-0.7) 10^3/uL Baso # (Auto) (0.0-0.1) 10^3/uL Absolute Nucleated RBC x10^3/uL Nucleated RBC % /100WBC PT 35.4 H (9.9-12.6) secs INR 3.2 H (0.8-1.2) Sodium (135-145) mmol/L Potassium (3.5-5.0) mmol/L Chloride (101-111) mmol/L Carbon Dioxide (21-32) mmol/L Anion Gap (6-13) BUN (6-20) mg/dL Creatinine (0.6-1.2) mg/dL Estimated GFR (MDRD) (>89) Glucose (70-100) mg/dL Lactic Acid (0.5-2.2) mmol/L Calcium (8.5-10.3) mg/dL Total Bilirubin (0.2-1.0) mg/dL AST (10-42) IU/L ALT (10-60) IU/L Alkaline Phosphatase (42-121) IU/L Troponin I (<0.49) ng/mL B-Natriuretic Peptide 78 (5-100) pg/mL Total Protein (6.7-8.2) g/dL Albumin (3.2-5.5) g/dL Globulin (2.1-4.2) g/dL Albumin/Globulin Ratio (1.0-2.2) Lipase (22-51) U/L Urine Color LT. YELLOW Urine Clarity CLEAR (CLEAR) Urine pH 5.5 (5.0-7.5) PH Ur Specific [place] <=1.005 (1.002-1.030) Urine Protein NEGATIVE (NEGATIVE) mg/dL Urine Glucose (UA) NEGATIVE (NEGATIVE) mg/dL Urine Ketones NEGATIVE (NEGATIVE) mg/dL Urine Occult Blood NEGATIVE (NEGATIVE) Urine Nitrite NEGATIVE (NEGATIVE) Urine Bilirubin NEGATIVE (NEGATIVE) Urine Urobilinogen 0.2 (NORMAL) (NORMAL) E.U./dL Ur Leukocyte Esterase NEGATIVE (NEGATIVE) Ur Microscopic Review NOT INDICATED Urine Culture Comments NOT INDICATED 09/18/18 09/18/18 09/18/18 Range/Units 14:50 14:50 14:50 WBC (4.8-10.8) x10^3/uL RBC (4.70-6.10) 10^6/uL Hgb (14.0-18.0) g/dL Hct (42.0-52.0) % MCV (80.0-94.0) fL MCH (27.0-31.0) pg MCHC (32.0-36.0) g/dL RDW (12.0-15.0) % Plt Count (130-450) 10^3/uL MPV (7.4-11.4) fL Neut # (Auto) (1.5-6.6) 10^3/uL Lymph # (Auto) (1.5-3.5) 10^3/uL [place] # (Auto) (0.0-1.0) 10^3/uL Eos # (Auto) (0.0-0.7) 10^3/uL Baso # (Auto) (0.0-0.1) 10^3/uL Absolute Nucleated RBC x10^3/uL Nucleated RBC % /100WBC PT (9.9-12.6) secs INR (0.8-1.2) Sodium 138 (135-145) mmol/L Potassium 3.2 L (3.5-5.0) mmol/L Chloride 96 L (101-111) mmol/L Carbon Dioxide 23 (21-32) mmol/L Anion Gap 19.0 H (6-13) BUN 29 H (6-20) mg/dL Creatinine 1.6 H (0.6-1.2) mg/dL Estimated GFR (MDRD) 43 L (>89) Glucose 194 H (70-100) mg/dL Lactic Acid 3.6 H* (0.5-2.2) mmol/L Calcium 6.6 L (8.5-10.3) mg/dL Total Bilirubin 0.4 (0.2-1.0) mg/dL AST 29 (10-42) IU/L ALT 17 (10-60) IU/L Alkaline Phosphatase 60 (42-121) IU/L Troponin I < 0.04 (<0.49) ng/mL B-Natriuretic Peptide (5-100) pg/mL Total Protein 7.4 (6.7-8.2) g/dL Albumin 3.6 (3.2-5.5) g/dL Globulin 3.8 (2.1-4.2) g/dL Albumin/Globulin Ratio 0.9 L (1.0-2.2) Lipase 24 (22-51) U/L Urine Color Urine Clarity (CLEAR) Urine pH (5.0-7.5) PH Ur Specific [place] (1.002-1.030) Urine Protein (NEGATIVE) mg/dL Urine Glucose (UA) (NEGATIVE) mg/dL Urine Ketones (NEGATIVE) mg/dL Urine Occult Blood (NEGATIVE) Urine Nitrite (NEGATIVE) Urine Bilirubin (NEGATIVE) Urine Urobilinogen (NORMAL) E.U./dL Ur Leukocyte Esterase (NEGATIVE) Ur Microscopic Review Urine Culture Comments 09/18/18 Range/Units 14:50 WBC 9.1 (4.8-10.8) x10^3/uL RBC 4.50 L (4.70-6.10) 10^6/uL Hgb 10.9 L (14.0-18.0) g/dL Hct 34.4 L (42.0-52.0) % MCV 76.4 L (80.0-94.0) fL MCH 24.1 L (27.0-31.0) pg MCHC 31.6 L (32.0-36.0) g/dL RDW 18.3 H (12.0-15.0) % Plt Count 350 (130-450) 10^3/uL MPV 7.5 (7.4-11.4) fL Neut # (Auto) 7.6 H (1.5-6.6) 10^3/uL Lymph # (Auto) 1.0 L (1.5-3.5) 10^3/uL [place] # (Auto) 0.5 (0.0-1.0) 10^3/uL Eos # (Auto) 0.0 (0.0-0.7) 10^3/uL Baso # (Auto) 0.0 (0.0-0.1) 10^3/uL Absolute Nucleated RBC 0.00 x10^3/uL Nucleated RBC % 0.0 /100WBC PT (9.9-12.6) secs INR (0.8-1.2) Sodium (135-145) mmol/L Potassium (3.5-5.0) mmol/L Chloride (101-111) mmol/L Carbon Dioxide (21-32) mmol/L Anion Gap (6-13) BUN (6-20) mg/dL Creatinine (0.6-1.2) mg/dL Estimated GFR (MDRD) (>89) Glucose (70-100) mg/dL Lactic Acid (0.5-2.2) mmol/L Calcium (8.5-10.3) mg/dL Total Bilirubin (0.2-1.0) mg/dL AST (10-42) IU/L ALT (10-60) IU/L Alkaline Phosphatase (42-121) IU/L Troponin I (<0.49) ng/mL B-Natriuretic Peptide (5-100) pg/mL Total Protein (6.7-8.2) g/dL Albumin (3.2-5.5) g/dL Globulin (2.1-4.2) g/dL Albumin/Globulin Ratio (1.0-2.2) Lipase (22-51) U/L Urine Color Urine Clarity (CLEAR) Urine pH (5.0-7.5) PH Ur Specific [place] (1.002-1.030) Urine Protein (NEGATIVE) mg/dL Urine Glucose (UA) (NEGATIVE) mg/dL Urine Ketones (NEGATIVE) mg/dL Urine Occult Blood (NEGATIVE) Urine Nitrite (NEGATIVE) Urine Bilirubin (NEGATIVE) Urine Urobilinogen (NORMAL) E.U./dL Ur Leukocyte Esterase (NEGATIVE) Ur Microscopic Review Urine Culture Comments - Diagnostic Imaging Results Diagnostic Imaging Results: positive: Final report reviewed - EKG Results EKG Interpreted Independently: Yes EKG Comparison: positive: Old EKG unavailable Sepsis Event Note (H) - Evaluation Possible source of Sepsis: positive: Pulmonary - Sepsis Criteria Sepsis Criteria: Metabolic: lactate > 2 mmol/L Impression/Plan - Problem List Problem List: Assessment/plan: 1. Left lower lobe pneumonia Patient with history of multiple pneumonias in the past with prior hospitalization and discharge from [facility] on 06/21/2018 for multidrug-resistant ESBL positive Klebsiella which was treated with IV cefepime along with Proteus mirabilis species which was pansensitive. Will obtain a sputum culture to see if patient continues to have reinfection or colonization of such. Meanwhile will provide pulmonary toileting, spirometry, steroids, initiate IV cefepime, duo nebs, treatment for COPD exacerbation as well. Optimize ventilation and perfusion with titration of O2 supplementation. Patient does not appear septic and I do not think left lower lobe pneumonia is attributable to lactic acidosis however blood cultures have been drawn in the ED. Flu A/B to follow as well as sputum culture. 2. Lactic acidosis May be attributable to metformin with decreased creatinine clearance and patient having an acute kidney injury will place on LR at a low rate at 75 mL/HR to improve renal perfusion and washout excessive lactic acid and serum. Will place hold on metformin for now. Serial lactic acid trending. 3. Hypokalemia Obtain magnesium level, potassium chloride supplementation in the setting of chronic atrial fibrillation will need to maintain potassium above 4.0 as well as keep magnesium above 2.0 4. Chronic stable stage C heart failure with a prior ejection fraction of 40 to 45% BNP is low at 78 and the patient appears to be dry at this point as a result of aggressive diuresis as an outpatient. We will continue to monitor and manage medically with guideline directed medical therapy as indicated the addition of metoprolol ER succinate will be added to regimen and then deciding on patient resuming Lasix or perhaps adding Aldactone to her regimen once renal function is back to baseline. 5. Chronic atrial fibrillation anticoagulated with Coumadin Patient currently is rate controlled and properly anticoagulated with slightly supratherapeutic INR of 3.2. Goal INR of 2-3 as indicated for patient's atrial fibrillation. CHADSVasc is 4pts, 4.8% stroke risk per year. 6. COPD exacerbation with home O2 dependence Continue with pulmonary toileting, duo nebs, the addition of Singulair, Pulmicort with Perforomist, IV Solu-Medrol 40 mg IV 3 times daily. Titration of O2 to maintain pulse ox above 90%. 7. History of coronary artery disease/CABG status post ICD placement First set of troponin was unremarkable. No arrhythmias seen on EKG or telemetry. Continue to monitor 8. Uncontrolled NIDDM type II Diabetes mellitus Obtain hemoglobin A1c placed on high insulin sliding scale correctional dose in anticipation that hypoglycemic excursions will occur in the setting of patient being on IV Solu-Medrol. Carb controlled diet. Will place on Lantus for basal coverage.Careful monitoring as patient will be on beta blockade and this can mask underlying hypoglycemia. 9. Obstructive sleep apnea on CPAP RT to make recommendations for initial CPAP settings to resume 10. Transient hypotension Replace on holding parameters once patient is on metoprolol ER succinate 25 mg p.o. twice daily 11. Hyperlipidemia Resume statin 12. History of laryngeal carcinoma status post tracheostomy Tracheostomy care, respiratory to follow, sputum and suctioning as needed. Patient is [place] [facility] [place] and care. We will obtain a consult while hospitalized. 13. Advanced care education/counseling. Discussion on plan of care was conveyed in regards to patient's medical condition, symptomatic medical management along with trajectory of illness. CODE STATUS was discussed and the patient has indicated DNR status. CODE STATUS: POLST indicates DNR Core Measures - Anticipated LOS I expect patient to be DC'd or transferred within 96 hours.: Yes - DVT/VTE - Prophylaxis VTE/DVT Device ordered at admit?: Yes VTE/DVT Prophylaxis med ordered at admit?: No Not Ordered - Medical Reason: Not indicated (Patient already anticoagulated with Coumadin) - Stroke - Rehab Assessment Rehab services assessment to be ordered?: No Not Ordered - Medical Reason: Not indicated - AMI - Statin at Admit Aspirin Prescribed on Admit: No Not Ordered - Medical Reason: Not indicated (Patient already anticoagulated on Coumadin)
[2018-09-18] MEDS: INSULIN ASPART 300 UNIT/3 ML PEN SUBQ SCH ×2 (17:49→21:44)
[2018-09-18] MEDS: LACTATED RINGERS 1,000 ML IV SCH (17:49)
[2018-09-18] MEDS: SODIUM CHLORIDE FLUSH 0.9% 10 ML SYRINGE IVP SCH (17:50)
[2018-09-18] MEDS: CEFEPIME 2 GM in SODIUM CHLORIDE 0.9% MINIBAG 100 ML IV SCH (17:58)
[2018-09-18] MEDS: POTASSIUM CHLORIDE 10 MEQ CAPSULE PO SCH (17:58)
[2018-09-18] MEDS ORDERED: MAGNESIUM SULFATE 2 GRAM 2 GM/50 ML BAG IV SCH ×2 (18:15→18:45)
[2018-09-18] MEDS: IPRATROPIUM/ALBUTEROL 3 ML NEB INH PRN (20:36)
[2018-09-18] MEDS: BUDESONIDE 0.5 MG/2 ML NEB INH SCH (20:36)
[2018-09-18] MEDS: FORMOTEROL FUMARATE NEB 20 MCG/2 ML INH SCH (20:36)
[2018-09-18] MEDS ORDERED: INSULIN GLARGINE 300 UNIT/3 ML PEN SUBQ SCH (21:00)
[2018-09-18 21:01] LABS: HB2 TOTAL 11.3 g/dL; HEMOGLOBIN A1C 0.79 g/dL; HEMOGLOBIN A1C % 8.5 % (4.6-6.2)
[2018-09-18] MEDS: METOPROLOL SUCCINATE 25 MG TABLET PO SCH (21:43)
[2018-09-18] MEDS: FAMOTIDINE 20 MG TABLET PO SCH (21:43)
[2018-09-18] MEDS: MONTELUKAST 10 MG TABLET PO SCH (21:43)
[2018-09-18] MEDS: methylPREDNISolone SUCCINATE 40 MG/ML VIAL IVP SCH (21:45)
[2018-09-18] MEDS: CHLORHEXIDINE GLUCONATE 15 ML UDC PO SCH (21:45)
[2018-09-18] MEDS: SODIUM CHLORIDE FLUSH 0.9% 10 ML SYRINGE IVP PRN (21:45)
[2018-09-18] MEDS: traZODone 50 MG TABLET PO SCH (23:35)
[2018-09-18] MEDS: rOPINIRole 0.25 MG TABLET PO PRN (23:35)
[2018-09-19] MEDS: SODIUM CHLORIDE FLUSH 0.9% 10 ML SYRINGE IVP SCH ×4 (03:09→23:41)
[2018-09-19] MEDS: CEFEPIME 2 GM in SODIUM CHLORIDE 0.9% MINIBAG 100 ML IV SCH ×2 (04:51→16:22)
[2018-09-19 05:19] LABS: BASOPHILS % (AUTO) 0.2 %; HGB - HEMOGLOBIN 10.1 g/dL (14.0-18.0); LYMPHOCYTES # (AUTO) 0.4 10^3/uL (1.5-3.5); LYMPHOCYTES % (AUTO) 5.1 %; MEAN CORPUSCULAR HEMOGLOBIN 24.5 pg (27.0-31.0); MEAN CORPUSCULAR VOLUME 76.4 fL (80.0-94.0); MEAN PLATELET VOLUME 7.2 fL (7.4-11.4); MONOCYTES # (AUTO) 0.2 10^3/uL (0.0-1.0); MONOCYTES % (AUTO) 3.4 %; NEUTROPHILS # (AUTO) 6.6 10^3/uL (1.5-6.6); NEUTROPHILS % (AUTO) 91.3 %; PLT - PLATELET COUNT 327 10^3/uL (130-450); RED BLOOD COUNT 4.15 10^6/uL (4.70-6.10); RED CELL DISTRIBUTION WIDTH 18.4 % (12.0-15.0); WHITE BLOOD COUNT 7.2 x10^3/uL (4.8-10.8)
[2018-09-19 05:24] LABS: INR 2.8 (0.8-1.2); PT - PROTHROMBIN TIME 31.2 secs (9.9-12.6)
[2018-09-19 05:38] LABS: ALBUMIN 3.2 g/dL (3.2-5.5); CREATININE 1.3 mg/dL (0.6-1.2); PHOSPHORUS 3.3 mg/dL (2.5-4.6)
[2018-09-19 05:39] LABS: CALCIUM 6.5 mg/dL (8.5-10.3)
[2018-09-19] MEDS: SODIUM CHLORIDE FLUSH 0.9% 10 ML SYRINGE IVP PRN (06:10)
[2018-09-19] MEDS: methylPREDNISolone SUCCINATE 40 MG/ML VIAL IVP SCH ×3 (06:10→21:01)
[2018-09-19] MEDS ORDERED: SODIUM CHLORIDE FLUSH 0.9% 10 ML SYRINGE ONE (06:13)
[2018-09-19 07:48] LABS: VBG PH 7.385 (7.31-7.41)
[2018-09-19] MEDS ORDERED: CALCIUM GLUCONATE 2,000 MG in SODIUM CHLORIDE 0.9% 100ML 100 ML IV ONE (08:00)
[2018-09-19] MEDS: IPRATROPIUM/ALBUTEROL 3 ML NEB INH PRN ×2 (08:08→19:28)
[2018-09-19] MEDS: FORMOTEROL FUMARATE NEB 20 MCG/2 ML INH SCH ×2 (08:08→19:28)
[2018-09-19] MEDS: BUDESONIDE 0.5 MG/2 ML NEB INH SCH ×2 (08:08→19:28)
[2018-09-19] MEDS: AMIODARONE 200 MG TABLET PO SCH (08:18)
[2018-09-19] MEDS: TAMSULOSIN 0.4 MG CAPSULE PO SCH (08:18)
[2018-09-19] MEDS: MAGNESIUM OXIDE 400 MG TABLET PO SCH (08:18)
[2018-09-19] MEDS: FAMOTIDINE 20 MG TABLET PO SCH ×2 (08:18→21:01)
[2018-09-19] MEDS: POTASSIUM CHLORIDE 10 MEQ CAPSULE PO SCH (08:18)
[2018-09-19] MEDS: METOPROLOL SUCCINATE 25 MG TABLET PO SCH ×2 (08:18→21:01)
[2018-09-19] MEDS: POLYETHYLENE GLYCOL 3350 17 GM PACKET PO SCH (08:19)
[2018-09-19] MEDS: CHLORHEXIDINE GLUCONATE 15 ML UDC PO SCH ×2 (08:19→21:02)
[2018-09-19] MEDS: INSULIN ASPART 300 UNIT/3 ML PEN SUBQ SCH ×4 (08:20→21:02)
--- NOTE | 2018-09-19 08:44 | MISCELLANEOUS PROVIDER NOTE ---
Miscellaneous Provider Note - - Note: HPI: Fernandez Cast is a 71-year-old gentleman with a past medical history significant for hypertension, hyperlipidemia, hypocalcemia, GERD, coronary artery disease status post CABG with an ICD, Chronic atrial fibrillation chronically anticoagulated on Coumadin, Stage C heart failure with structural heart disease with prior or current symptoms of a reduced ejection fraction (borderline), ejection fraction of 40-45% on his last echo in 03/2018, COPD on 2-3 L of oxygen at night, history of laryngeal cancer status post tracheostomy since 1989, obstructive sleep apnea with prior CPAP use, NIDDM type 2 diabetes mellitus, and osteoarthritis. He presented to the emergency department with a chief complaint of a 2-day history of productive cough, shortness of breath and rigors. Patient has had a history of pneumonias in the past and essentially was discharged from [facility] on 06/21/2018 to [facility] and was discharged in late July early August per history. Since then patient has been on Levaquin and had an ER visitation yesterday with a lactic acid of 3.3. Today's lactic acid is 3.9, however patient is on metformin as well as oral hypoglycemics. His potassium was 3.2, CBC was essentially unremarkable with microcytic anemia although he has a history of chronic iron deficiency anemia, UA was negative, LFTs were within normal limits, patient does have a history of chronic kidney disease stage II/III with a baseline creatinine ranging 0.9-1.5, current creatinine of 1.6 with acute renal insufficiency. Clinically patient appears dry and However not septic appearing. Patient had denied purulent or copious secretions from tracheostomy. BNP level was 78, INR was supratherapeutic at 3.2, glucose was elevated at 194, EKG showed left bundle branch block with 85 bpm. CXR revealed left basilar opacity suggestive of infiltrate and or effusion. On patient's last admission patient was going multidrug-resistant ESBL positive Klebsiella via with pansensitive Proteus and was previously placed on cefepime. Pt denies fever, chill, headache, chest pain, abdominal pain, nausea, vomiting, diarrhea, dysuria, hematouria, vision change, focus neurological deficits. As a result of his presentation, pt was admitted in the hospital. Subjective: Patient seen at bedside with improved respiratory function. Patient is eating breakfast with no complaints of fevers, chills, chest pain, nausea or vomiting. No purulent drainage from trach site. Objective: Vital signs hemodynamically stable, afebrile, heart rate of 80 bpm, blood pressure 132/71, RR 16, 98% O2 saturation on 3 L nasal cannula. In no acute respiratory distress General: Patient in no respiratory distress, chronically ill-appearing, nontoxic, pleasant and cooperative next HEENT: Pupils equal round react light and accommodation. No buccal lesions. NCAT Neck: Trachea midline, stoma with no surrounding lesions, trach collar with no purulent drainage, no JVD no bruits no lymphadenopathy next CV/lungs: RRR, S1-S2 within normal limits, no murmurs, no gallops, no clicks. Mild scattered rales to the right base versus the left with mild expiratory rhonchi, no wheezing, no increased work of breath or retractions. Abdomen: Benign Extremities/skin: No edema clubbing or cyanosis, no maculopapular rashes. Neuro: Grossly intact Labs: Reviewed Imaging studies reviewed Assessment/plan: 1. Left lower lobe pneumonia Patient with history of multiple pneumonias in the past with prior hospitalization and discharge from [facility] on 06/21/2018 for multidrug-resistant ESBL positive Klebsiella which was treated with IV cefepime along with Proteus mirabilis species which was pansensitive. Current sputum culture is growing moderate yeast, moderate gram-positive cocci, and many gram- negative bacilli as well as WBCs. Currently being treated with empiric IV cefepime, pulmonary toileting, humidified air via trach, spirometry, steroids, duo nebs. 2. Lactic acidosis Lactic acid level downtrending to normal level now, Metformin has been discontinued since admission, will follow up on blood cultures, Patient did not present septic on admission. 3. Electrolyte disturbance (Hypokalemia, Hypocalcemia, hypomagnesemia); Symptomatic Likely secondary to aggressive diureses as an outpatient. Potassium has been corrected, corrected calcium level was 7.1 calcium gluconate 2G IV x 1 ordered, Magnesium level was at critical low 0.5 and 4 g of magnesium administered yesterday, will recheck today. Patient denies leg cramping but has some restlessness, in the setting of chronic atrial fibrillation will need to maintain potassium above 4.0 as well as keep magnesium above 2.0. TSH and PTH were unremarkable. 4. Chronic stable stage C heart failure with a prior ejection fraction of 40 to 45% We will continue with guideline directed medical therapy, Will initiate low-dose Aldactone. Alternatively patient may be benefiting the use of Entresto. Aspirin has been held patient is anticoagulated with Coumadin. 5. Chronic atrial fibrillation anticoagulated with Coumadin Patient currently is rate controlled and properly anticoagulated with INR 2.8. Goal INR of 2-3 as indicated for patient's atrial fibrillation. CHADSVasc is 4pts, 4.8% stroke risk per year. 6. COPD exacerbation with home O2 dependence Continue with pulmonary toileting, duo nebs, the addition of Singulair, Pulmicor t with Perforomist, IV Solu-Medrol 40 mg IV 3 times daily. Titration of O2 to maintain pulse ox above 90%. 7. History of coronary artery disease/CABG status post ICD placement Continue medical management, no arrhythmias seen on telemetry, troponin unremarkable. 8. Uncontrolled NIDDM type II Diabetes mellitus Hemoglobin A1c is 8.5% uncontrolled, Continue with high insulin sliding scale correctional dose in anticipation that hypoglycemic excursions will occur in the setting of patient being on IV Solu-Medrol. Carb controlled diet. Will place on Lantus for basal coverage. Careful monitoring as patient will be on beta blockade and this can mask underlying hypoglycemia. 9. Obstructive sleep apnea on CPAP Continue with CPAP and humidified air administration via trach 10. Hyperlipidemia Continue with statin 11. History of laryngeal carcinoma status post tracheostomy Tracheostomy care, respiratory to follow, sputum and suctioning as needed. Patient is [place] [facility] [place] and care. We will obtain a consult while hospitalized. 12. Advanced care education/counseling. Discussion on plan of care was conveyed in regards to patient's medical condition, symptomatic medical management along with trajectory of illness. CODE STATUS was discussed and the patient has indicated DNR status. CODE STATUS: POLST indicates DNR
[2018-09-19] MEDS ORDERED: ENOXAPARIN 40 MG/0.4 ML SYRINGE SUBQ SCH (09:00)
[2018-09-19] MEDS ORDERED: ASPIRIN EC 81 MG TABLET PO SCH (09:00)
[2018-09-19] MEDS ORDERED: WARFARIN 5 MG TABLET PO SCH (09:00)
[2018-09-19] MEDS: LACTATED RINGERS 1,000 ML IV SCH ×2 (10:00→23:41)
[2018-09-19] MEDS: SPIRONOLACTONE 25 MG TABLET PO SCH (10:00)
[2018-09-19] MEDS: MONTELUKAST 10 MG TABLET PO SCH (21:01)
[2018-09-19] MEDS: INSULIN GLARGINE 300 UNIT/3 ML PEN SUBQ SCH (21:02)
[2018-09-19] MEDS: traZODone 50 MG TABLET PO SCH (23:40)
[2018-09-19] MEDS: rOPINIRole 0.25 MG TABLET PO PRN (23:40)
[2018-09-20] MEDS: CEFEPIME 2 GM in SODIUM CHLORIDE 0.9% MINIBAG 100 ML IV SCH (04:57)
[2018-09-20 05:36] LABS: BASOPHILS % (AUTO) 0.1 %; HGB - HEMOGLOBIN 9.9 g/dL (14.0-18.0); LYMPHOCYTES # (AUTO) 0.6 10^3/uL (1.5-3.5); MEAN CORPUSCULAR HEMOGLOBIN 24.1 pg (27.0-31.0); MEAN CORPUSCULAR HGB CONC 31.1 g/dL (32.0-36.0); MEAN CORPUSCULAR VOLUME 77.5 fL (80.0-94.0); MEAN PLATELET VOLUME 7.5 fL (7.4-11.4); MONOCYTES # (AUTO) 0.4 10^3/uL (0.0-1.0); MONOCYTES % (AUTO) 4.6 %; NEUTROPHILS # (AUTO) 7.3 10^3/uL (1.5-6.6); NEUTROPHILS % (AUTO) 88.3 %; PLT - PLATELET COUNT 329 10^3/uL (130-450); RED BLOOD COUNT 4.11 10^6/uL (4.70-6.10); WHITE BLOOD COUNT 8.3 x10^3/uL (4.8-10.8)
[2018-09-20 05:42] LABS: INR 1.9 (0.8-1.2); PT - PROTHROMBIN TIME 21.4 secs (9.9-12.6)
[2018-09-20 05:48] LABS: ALBUMIN 3.2 g/dL (3.2-5.5); CALCIUM 7.2 mg/dL (8.5-10.3); CREATININE 1.1 mg/dL (0.6-1.2); PHOSPHORUS 2.7 mg/dL (2.5-4.6)
[2018-09-20] MEDS: methylPREDNISolone SUCCINATE 40 MG/ML VIAL IVP SCH ×2 (05:55→21:00)
[2018-09-20] MEDS: FORMOTEROL FUMARATE NEB 20 MCG/2 ML INH SCH ×2 (07:55→19:34)
[2018-09-20] MEDS: BUDESONIDE 0.5 MG/2 ML NEB INH SCH ×2 (07:55→19:34)
[2018-09-20] MEDS: IPRATROPIUM/ALBUTEROL 3 ML NEB INH PRN ×2 (07:55→19:34)
[2018-09-20] MEDS ORDERED: AMITRIPTYLINE 10 MG TABLET PO SCH (08:00)
[2018-09-20] MEDS: INSULIN GLARGINE 300 UNIT/3 ML PEN SUBQ SCH ×2 (08:36→21:00)
[2018-09-20] MEDS: INSULIN ASPART 300 UNIT/3 ML PEN SUBQ SCH ×4 (08:36→21:01)
[2018-09-20] MEDS ORDERED: FERROUS SULFATE 325 MG TABLET PO SCH (09:00)
[2018-09-20] MEDS ORDERED: AMOX/CLAV 875 MG/125 MG TABLET PO SCH (09:00)
[2018-09-20] MEDS ORDERED: WARFARIN 5 MG TABLET PO SCH (09:00)
[2018-09-20] MEDS ORDERED: SODIUM CHLORIDE INHALATION 3 ML NEB INH SCH (09:00)
[2018-09-20] MEDS: MAGNESIUM OXIDE 400 MG TABLET PO SCH (09:45)
[2018-09-20] MEDS: AMIODARONE 200 MG TABLET PO SCH (09:46)
[2018-09-20] MEDS: FAMOTIDINE 20 MG TABLET PO SCH ×2 (09:46→20:58)
[2018-09-20] MEDS: CHLORHEXIDINE GLUCONATE 15 ML UDC PO SCH ×2 (09:46→21:01)
[2018-09-20] MEDS: CHOLECALCIFEROL 1,000 UNIT TABLET PO SCH (09:46)
[2018-09-20] MEDS: SPIRONOLACTONE 25 MG TABLET PO SCH ×2 (09:47→20:59)
[2018-09-20] MEDS: TAMSULOSIN 0.4 MG CAPSULE PO SCH (09:47)
[2018-09-20] MEDS: POLYETHYLENE GLYCOL 3350 17 GM PACKET PO SCH (09:49)
[2018-09-20] MEDS: METOPROLOL SUCCINATE 25 MG TABLET PO SCH ×2 (09:49→20:59)
[2018-09-20] MEDS: AMPICILLIN/SULBACTAM 3 GM in SODIUM CHLORIDE 0.9% MINIBAG 100 ML IV SCH ×3 (10:12→21:25)
[2018-09-20] MEDS: LACTOBACILLUS RHAMNOSUS GG CAPSULE PO SCH (10:12)
[2018-09-20] MEDS: WARFARIN 5 MG TABLET PO SCH (10:12)
[2018-09-20] MEDS: SODIUM CHLORIDE FLUSH 0.9% 10 ML SYRINGE IVP SCH ×2 (10:13→16:19)
[2018-09-20] MEDS ORDERED: HYDROGEN PEROXIDE 3% 473 ML BOTTLE TOP ONE (11:41)
[2018-09-20] MEDS: SODIUM CHLORIDE FLUSH 0.9% 10 ML SYRINGE IVP PRN ×3 (13:32→21:25)
[2018-09-20] MEDS ORDERED: CALCIUM CARBONATE CHEW 500 MG TABLET PO SCH (14:00)
--- NOTE | 2018-09-20 14:14 | MISCELLANEOUS PROVIDER NOTE ---
Miscellaneous Provider Note - - Note: HPI: Fernandez Cast is a 71-year-old gentleman with a past medical history significant for hypertension, hyperlipidemia, hypocalcemia, GERD, coronary artery disease status post CABG with an ICD, Chronic atrial fibrillation chronically anticoagulated on Coumadin, Stage C heart failure with structural heart disease with prior or current symptoms of a reduced ejection fraction (borderline), ejection fraction of 40-45% on his last echo in 03/2018, COPD on 2-3 L of oxygen at night, history of laryngeal cancer status post tracheostomy since 1989, obstructive sleep apnea with prior CPAP use, NIDDM type 2 diabetes mellitus, and osteoarthritis. He presented to the emergency department with a chief complaint of a 2-day history of productive cough, shortness of breath and rigors. Patient has had a history of pneumonias in the past and essentially was discharged from [facility] on 06/21/2018 to [facility] and was discharged in late July early August per history. Since then patient has been on Levaquin and had an ER visitation yesterday with a lactic acid of 3.3. Today's lactic acid is 3.9, however patient is on metformin as well as oral hypoglycemics. His potassium was 3.2, CBC was essentially unremarkable with microcytic anemia although he has a history of chronic iron deficiency anemia, UA was negative, LFTs were within normal limits, patient does have a history of chronic kidney disease stage II/III with a baseline creatinine ranging 0.9-1.5, current creatinine of 1.6 with acute renal insufficiency. Clinically patient appears dry and However not septic appearing. Patient had denied purulent or copious secretions from tracheostomy. BNP level was 78, INR was supratherapeutic at 3.2, glucose was elevated at 194, EKG showed left bundle branch block with 85 bpm. CXR revealed left basilar opacity suggestive of infiltrate and or effusion. On patient's last admission patient was going multidrug-resistant ESBL positive Klebsiella via with pansensitive Proteus and was previously placed on cefepime/vancomycin. Pt denies fever, chill, headache, chest pain, abdominal pain, nausea, vomiting, diarrhea, dysuria, hematouria, vision change, focus neurological deficits. As a result of his presentation, pt was admitted in the hospital. Subjective: Patient seen at bedside with nonproductive cough however he mentions that he does have some congestion but no purulence or drainage from trach site. Patient tolerating nebulizer treatments. Patient denies fevers, chest pain, lower extremity swelling, maculopapular rash. Objective: Vital signs hemodynamically stable, afebrile, heart rate of 80 bpm, blood pressure 132/71, RR 16, 98% O2 saturation on 3 L nasal cannula. In no acute respiratory distress General: Patient in no respiratory distress, chronically ill-appearing, nontoxic, pleasant and cooperative next HEENT: Pupils equal round react light and accommodation. No buccal lesions. NCAT Neck: Trachea midline, stoma with no surrounding lesions, trach collar with no purulent drainage, no JVD no bruits no lymphadenopathy next CV/lungs: RRR, S1-S2 within normal limits, no murmurs, no gallops, no clicks. Improved aeration to the bases with mild expiratory rhonchi, no wheezing, no rales, no increased work of breath or retractions. Abdomen: Benign Extremities/skin: No edema clubbing or cyanosis, no maculopapular rashes. Neuro: Grossly intact Labs: Reviewed Imaging studies reviewed Assessment/plan: 1. Left lower lobe pneumonia Improved respiratory function seen on clinical exam. Patient with history of multiple pneumonias in the past with prior hospitalization and discharge from [facility] on 06/21/2018 for multidrug-resistant ESBL positive Klebsiella which was treated with IV cefepime/Vanco along with Proteus mirabilis species which was pansensitive. Current sputum culture is growing moderate yeast, moderate gram-positive cocci, Gram-negative rods to be identified, currently growing out a Proteus species with likelihood of sensitivities to Unasyn. Patient had previously been identified to have multidrug-resistant strain with Klebsiella that was resistant to cefepime (likely same organism causing current PNA), but sensitive to quinolones however cannot start quinolone due to QT prolongation and interaction with amiodarone and Coumadin. Will continue with pulmonary toileting, humidified air via trach, spirometry, steroids, duo nebs. Will continue on respiratory contact precautions. In addition, we will place on GI prophylaxis for nimisha with lactobacillus po daily. 2. Lactic acidosis; Resolved Will continue to hold metformin for now. 3. Acute renal insufficiency superimposed on chronic kidney disease (Baseline 0.9-1.4-chronic kidney disease stage II) Improved and back to baseline, IV fluids perfusing well and will saline lock. Try to avoid nephrotoxic agents however patient will be on low-dose Aldactone for his stage C heart failure. 4. Electrolyte disturbance (Hypokalemia/Hypomagnesemia, Resolved; Hypocalcemia Symptomatic) Patient was discontinued off of Lasix. May be the result of low-dose Aldactone. Patient's ionized calcium was low at 0.87, patient has already received calcium gluconate, Corrected calcium is still low at 7.8. Will place on calcium carbonate 500 mg p.o. 3 times daily. PTH was normal at 87. Magnesium was normal at 2.0. Sodium and potassium levels have stabilized now. 5. Chronic stable stage C heart failure with a prior ejection fraction of 40 to 45% We will continue with guideline directed medical therapy, Continue with low-dose Aldactone. May start low-dose lisinopril. Alternatively patient may be benefiting the use of Entresto. Aspirin has been held patient is anticoagulated with Coumadin. 6. Chronic atrial fibrillation anticoagulated with Coumadin Patient currently subtherapeutic with an INR of 1.9. Will restart Coumadin. Goal INR of 2-3 as indicated for patient's atrial fibrillation. CHADSVasc is 4pts, 4.8% stroke risk per year. 7. COPD exacerbation with home O2 dependence Improved. Continue with pulmonary toileting, duo nebs, the addition of Singulair, Pulmicort with Perforomist. We will down titrate Solu-Medrol to 40 mg IV twice daily. Will prescribe a respiratory burst dose of 60 to 80 mg p.o. daily for a period of 5 to 7 days. Titration of O2 to maintain pulse ox above 90%. 8. History of coronary artery disease/CABG status post ICD placement Continue medical management, no arrhythmias seen on telemetry, troponin unremarkable. 9. Uncontrolled NIDDM type II Diabetes mellitus Hemoglobin A1c is 8.5% uncontrolled, Continue with high insulin sliding scale correctional dose in anticipation that hypoglycemic excursions will occur in the setting of patient being on IV Solu-Medrol. Carb controlled diet. Will place on Lantus for basal coverage. Careful monitoring as patient will be on beta blockade and this can mask underlying hypoglycemia. 10. Obstructive sleep apnea on CPAP Continue with CPAP and humidified air administration via trach 11. Hyperlipidemia Continue with statin 12. Chronic Iron deficiency anemia This has been chronic and thus low iron levels will be addressed with oral iron supplementation. 13. History of laryngeal carcinoma status post tracheostomy Tracheostomy care, respiratory to follow, sputum and suctioning as needed. Patient is followed by [facility] for stoma dressings and care. We will obtain a consult while hospitalized. 14. Advanced care education/counseling. Discussion on plan of care was conveyed in regards to patient's medical conditio n, symptomatic medical management along with trajectory of illness. CODE STATUS was discussed and the patient has indicated DNR status. CODE STATUS: POLST indicates DNR
[2018-09-20 15:11] LABS: % IRON SATURATION 9 % (20-50); IRON 30 ug/dL (45-182); TOTAL IRON BINDING CAPACITY 343 ug/dL (250-450); TRANSFERRIN 245 mg/dL (180-329)
[2018-09-20] MEDS: NYSTATIN 500000 UNITS/5 ML UDC PO SCH ×2 (16:18→21:01)
[2018-09-20] MEDS: MONTELUKAST 10 MG TABLET PO SCH (20:58)
[2018-09-20] MEDS: LISINOPRIL 5 MG TABLET PO SCH (20:59)
[2018-09-20] MEDS ORDERED: ATORVASTATIN CALCIUM PO SCH (21:00)
[2018-09-20] MEDS: traZODone 50 MG TABLET PO SCH (21:24)
[2018-09-20] MEDS: rOPINIRole 0.25 MG TABLET PO PRN (21:24)
[2018-09-21] MEDS: AMPICILLIN/SULBACTAM 3 GM in SODIUM CHLORIDE 0.9% MINIBAG 100 ML IV SCH ×2 (04:20→10:26)
[2018-09-21] MEDS: SODIUM CHLORIDE FLUSH 0.9% 10 ML SYRINGE IVP SCH ×2 (04:20→08:52)
[2018-09-21] MEDS: SODIUM CHLORIDE FLUSH 0.9% 10 ML SYRINGE IVP PRN ×2 (04:21→11:19)
[2018-09-21 05:17] LABS: BASOPHILS % (AUTO) 0.2 %; HGB - HEMOGLOBIN 10.3 g/dL (14.0-18.0); LYMPHOCYTES # (AUTO) 0.6 10^3/uL (1.5-3.5); LYMPHOCYTES % (AUTO) 7.5 %; MEAN CORPUSCULAR HEMOGLOBIN 24.4 pg (27.0-31.0); MEAN CORPUSCULAR HGB CONC 31.2 g/dL (32.0-36.0); MEAN CORPUSCULAR VOLUME 78.3 fL (80.0-94.0); MEAN PLATELET VOLUME 7.5 fL (7.4-11.4); MONOCYTES # (AUTO) 0.3 10^3/uL (0.0-1.0); MONOCYTES % (AUTO) 3.7 %; NEUTROPHILS # (AUTO) 6.9 10^3/uL (1.5-6.6); NEUTROPHILS % (AUTO) 88.6 %; PLT - PLATELET COUNT 340 10^3/uL (130-450); RED BLOOD COUNT 4.23 10^6/uL (4.70-6.10); RED CELL DISTRIBUTION WIDTH 18.2 % (12.0-15.0); WHITE BLOOD COUNT 7.8 x10^3/uL (4.8-10.8)
[2018-09-21 05:22] LABS: INR 1.6 (0.8-1.2); PT - PROTHROMBIN TIME 18.3 secs (9.9-12.6)
[2018-09-21 05:30] LABS: ALBUMIN 3.1 g/dL (3.2-5.5); CALCIUM 7.3 mg/dL (8.5-10.3); PHOSPHORUS 2.5 mg/dL (2.5-4.6)
[2018-09-21] MEDS: IPRATROPIUM/ALBUTEROL 3 ML NEB INH PRN (07:48)
[2018-09-21] MEDS: FORMOTEROL FUMARATE NEB 20 MCG/2 ML INH SCH (07:48)
[2018-09-21] MEDS: BUDESONIDE 0.5 MG/2 ML NEB INH SCH (07:48)
--- NOTE | 2018-09-21 07:51 | DISCHARGE SUMMARY ---
"Discharge Summary Admit Date: 09/18/18 Discharge Date: 09/21/18 Discharging Provider: Dr. Haas Primary Care Provider: Raul Delaney Code Status: Do Not Attempt Resuscitation Condition at Discharge: Good Discharge Disposition: 01 Home, Self Care - DIAGNOSES Admission Diagnoses: 1. Left lower lobe pneumonia, Recurrent Klebsiella multidrug-resistant plus Proteus species plus yeast 2. Lactic acidosis Secondary to metformin use 3. Acute renal insufficiency superimposed on chronic kidney disease (Baseline 0.9-1.4-chronic kidney disease stage II) 4. Electrolyte disturbance (Hypokalemia/Hypomagnesemia, Resolved; Hypocalcemia Symptomatic 5. Chronic stable stage C heart failure with a prior ejection fraction of 40 to 45% 6. Chronic atrial fibrillation anticoagulated with Coumadin 7. COPD exacerbation with home O2 dependence 8. History of coronary artery disease/CABG status post ICD placement 9. Uncontrolled NIDDM type II Diabetes mellitus 10. Obstructive sleep apnea on CPAP 11. Hyperlipidemia 12. Chronic Iron deficiency anemia 13. History of laryngeal carcinoma status post tracheostomy Discharge Diagnoses with Status of Each Condition: 1. Left lower lobe pneumonia, Improved and resolving 2. Lactic acidosis; Resolved 3. Acute renal insufficiency superimposed on chronic kidney disease (Baseline 0.9-1.4-chronic kidney disease stage II); Resolved 4. Electrolyte disturbance (Hypokalemia/Hypomagnesemia, Resolved; Hypocalcemia Symptomatic); Improved, resolved 5. Chronic stable stage C heart failure with a prior ejection fraction of 40 to 45%; Stable 6. Chronic atrial fibrillation anticoagulated with Coumadin, Stable 7. COPD exacerbation with home O2 dependence, Improved 8. History of coronary artery disease/CABG status post ICD placement, Stable 9. Uncontrolled NIDDM type II Diabetes mellitus, Improved 10. Obstructive sleep apnea on CPAP, Stable 11. Hyperlipidemia, Stable 12. Chronic Iron deficiency anemia, Stable 13. History of laryngeal carcinoma status post tracheostomy, Stable - HPI History of Present Illness: Fernandez Cast is a 71-year-old gentleman with a past medical history significant for hypertension, hyperlipidemia, hypocalcemia, GERD, coronary artery disease status post CABG with an ICD, Chronic atrial fibrillation chronically an ticoagulated on Coumadin, Stage C heart failure with structural heart disease with prior or current symptoms of a reduced ejection fraction (borderline), ejection fraction of 40-45% on his last echo in 03/2018, COPD on 2-3 L of oxygen at night, history of laryngeal cancer status post tracheostomy since 1989, obstructive sleep apnea with prior CPAP use, NIDDM type 2 diabetes mellitus, and osteoarthritis. He presented to the emergency department with a chief complaint of a 2-day history of productive cough, shortness of breath and rigors. Patient has had a history of pneumonias in the past and essentially was discharged from [facility] on 06/21/2018 to [facility] and was discharged in late July early August per history. Since then patient has been on Levaquin and had an ER visitation yesterday with a lactic acid of 3.3. Today's lactic acid is 3.9, however patient is on metformin as well as oral hypoglycemics. His potassium was 3.2, CBC was essentially unremarkable with microcytic anemia although he has a history of chronic iron deficiency anemia, UA was negative, LFTs were within normal limits, patient does have a history of chronic kidney disease stage II/III with a baseline creatinine ranging 0.9-1.5, current creatinine of 1.6 with acute renal insufficiency. Clinically patient appears dry and However not septic appearing. Patient had denied purulent or copious secretions from tracheostomy. BNP level was 78, INR was supratherapeutic at 3.2, glucose was elevated at 194, EKG showed left bundle branch block with 85 bpm. CXR revealed left basilar opacity suggestive of infiltrate and or effusion. On patient's last admission patient was going multidrug-resistant ESBL positive Klebsiella via with pansensitive Proteus and was previously placed on cefepime/vancomycin. Pt denies fever, chill, headache, chest pain, abdominal pain, nausea, vomiting, diarrhea, dysuria, hematouria, vision change, focus neurological deficits. As a result of his presentation, pt was admitted in the hospital. 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 Fernandez Cast is a gentleman with numerous cardiovascular comorbidities to include tracheostomy status, stage C heart failure with prior ejection fraction of 40 to 45%, chronic atrial fibrillation,, chronic iron deficiency anemia, chronic kidney disease stage II on diuretics, COPD with home O2 dependence of 2 to 3 L at night, NIDDM type II, hyperlipidemia, hypertension, GERD, coronary disease status post CABG and ICD placement, chronic anticoagulation on Coumadin, laryngeal cancer status post tracheostomy in the who presents with a recurrence of left lower lobe pneumonia. Patient had been previously treated for a multidrug-resistant strain of Klebsiella and a pansensitive strain of Proteus back in June 2018. Respiratory culture did show a recurrent 1+Proteus species, and recurrence of Klebsiella MDR/ESBL+ seen again on this admission, Sensitivities show RADHA of Intermediate with Amoxicillin/clavulonic acid for the Klebsiella species, and RADHA <2 for Proteus sp. In addition, patient had moderate yeast growth. Patient had the nystatin oral solution added to antimicrobial regimen. Patient presented with respiratory complaints but no copious sputum production or tracheostomy site purulence. Patient was initially thought to have sepsis related to pneumonia however lactic acidosis was as a consequence and side effect of metformin use. In addition patient had a supratherapeutic INR for which no bleeding was ascertained and chronic iron deficiency anemia was subsequently addressed with iron supplementation. Patient has what appears to be underlying chronic hypocalcemia with a parathyroid hormone and under lying metabolic deficits. Patient was medically managed and initially placed on cefepime however prior resistance from Klebsiella multidrug- resistant ESBL positive strain was noted and this was subsequently changed to IV Unasyn which has sensitivities from the Proteus species and Klebsiella species that he has been diagnosed in the past with, this was continued and transitioned over to oral Augmentin. During the interim patient received Pulmicort and Perforomist nebs along with pulmonary toileting incentive spirometry nighttime CPAP and bronchodilator patient which improved his respiratory status. Patient was not seen to have increased oxygen requirements or hypoxemic respiratory failure on his existing tracheostomy with mask. Patient was essentially hemodynamically stable and 96% O2 saturation on room air upon discharge. military exchange wireless manager saw patient's stoma ulcerative site which was present on admission and was addressed and had dressings placed appropriately with no overt cellulitis or surrounding infections. For patient's cardiac comorbidities to include his stage C heart failure and chronic atrial fibrillation patient was placed on guideline directed medical therapy and Aldactone was titrated to an acceptable 12.5 mg p.o. twice daily along with his other medications with beta-blockade and a low- dose TODD inhibitor. Patient was restarted on Coumadin. Patient's iron levels were slightly low, hemoglobin was 10.3, INR 1.6, Creatinine 1.0, platelets 340, corrected calcium 8.0. Patient has been instructed to continue with oral Augmentin for a total of 10 more days. Will re-titrate patient's oral hypoglycemics however patient likely will require insulin As an outpatient as he will have a prednisone respiratory burst to be dispensed for his COPD. We will currently hold metformin for now due to recurrence of lactic acidosis prevalent. - ALLERGIES Allergies/Adverse Reactions: Allergies Allergy/AdvReac Type Severity Reaction Status Date / Time No Known Drug Allergies Allergy Verified 09/17/18 14:44 - MEDICATIONS Home Medications: Ambulatory Orders Medication Instructions Recorded Confirmed Albuterol Sulfate [Proair Hfa 2 puffs INH Q4H PRN 04/05/17 09/19/18 Inhaler] B6/Levomefolate/B12/Ala/If 1 tab PO BID 04/19/18 09/19/18 [Abatrex with Ala Tablet] Tamsulosin [Flomax] 0.4 mg PO DAILY #30 capsule 06/21/18 09/19/18 Amiodarone HCl 200 mg PO DAILY 09/18/18 09/19/18 Fluticasone/Salmeterol [Advair Hfa 2 puffs INH BID 09/18/18 09/19/18 230-21 Mcg Inhaler] SITagliptin [Januvia] 100 mg PO DAILY 09/18/18 09/19/18 Trazodone HCl 100 mg PO QPM 09/18/18 09/19/18 glipiZIDE [Glipizide] 20 mg PO BID 09/18/18 09/19/18 Warfarin Sodium 5 mg PO DAILY 09/20/18 09/20/18 Amox/Clav 875/125 [Augmentin] 1 each PO Q12H #20 tablet 09/21/18 Insulin Glargine [Lantus Solostar] 12 unit SQ BID #1 pen 09/21/18 Lactobacillus Rhamnosus GG 1 cap PO DAILY #30 capsule 09/21/18 [Culturelle] Lisinopril [Zestril] 2.5 mg PO BID #60 tablet 09/21/18 Magnesium Oxide [Mag Ox] 800 mg PO DAILYWM #90 tablet 09/21/18 Metoprolol Succinate [Toprol Xl] 25 mg PO BID #60 tablet 09/21/18 Montelukast [Singulair] 10 mg PO QPM #30 tablet 09/21/18 Nystatin 100,000 unit PO QID #140 ml 09/21/18 Spironolactone [Aldactone] 12.5 mg PO BID #30 tablet 09/21/18 predniSONE [Prednisone] 60 mg PO DAILY #21 tablet 09/21/18 - PHYSICAL EXAM AT DISCHARGE General Appearance: positive: No acute distress, Alert, Anxious Eyes Bilateral: positive: Normal inspection, PERRL, EOMI ENT: positive: ENT inspection nml, Pharynx nml, Other Neck: positive: Nml inspection, Thyroid nml, No JVD, Trachea midline (Tracheostomy site is clean dry and intact, Stoma site with underlying ulcerative lesion that is dressed). negative: Lymphadenopathy (R), Lymphadenopathy (L), Stiff neck, Carotid bruit, Tracheal deviation Respiratory: positive: Chest non-tender, No respiratory distress, Breath sounds nml. negative: Wheezes, Rales, Rhonchi Cardiovascular: positive: No murmur, No gallop, Irregularly irregular. negative: JVD present, Gallop/S3, Gallop/S4, Friction rub Peripheral Pulses: positive: 2+ Abdomen: positive: Non-tender, No organomegaly, Nml bowel sounds, No distention. negative: Tenderness Extremities: positive: Non-tender, Full ROM, Nml appearance Neurologic/Psychiatric: positive: Oriented x3, CN's nml (2-12) - LABS Result Diagrams: 09/21/18 04:50 09/21/18 04:50 - DIAGNOSTIC IMAGING Diagnostic Imaging Results: Final report reviewed - SEPSIS Current Stage of Sepsis: Ruled out Possible source of Sepsis: Pulmonary - FOLLOW UP Follow Up: Follow-up with PCP in 1 to 2 weeks. Follow-up with pulmonology in 2 to 3 weeks. Continue to follow-up with [facility] [place] care clinic for stoma site dressings as scheduled. - TIME SPENT Time Spent in Discharge (Minutes): 35"
--- NOTE | 2018-09-21 08:20 | Discharge Plan ---
Discharge Plan Disposition: Home, Self Care Condition: Good Prescriptions: Amox/Clav 875/125 [Augmentin] 1 each PO Q12H #20 tablet Insulin Glargine [Lantus Solostar] 12 unit SQ BID #1 pen Lactobacillus Rhamnosus GG [Culturelle] 1 cap PO DAILY #30 capsule Lisinopril [Zestril] 2.5 mg PO BID #60 tablet Magnesium Oxide [Mag Ox] 800 mg PO DAILYWM #90 tablet Metoprolol Succinate [Toprol Xl] 25 mg PO BID #60 tablet Montelukast [Singulair] 10 mg PO QPM #30 tablet Nystatin 100,000 unit PO QID #140 ml predniSONE [Prednisone] 60 mg PO DAILY #21 tablet Spironolactone [Aldactone] 12.5 mg PO BID #30 tablet Diet: Diabetic (Diary and glycemic control with Lantus) Activity Restrictions: Activity as Tolerated Shower Restrictions: No Driving Restrictions: Yes Instruction Topics: Care Palliative, Diabetes Healthy Meals, Diabetes Carbs, Tracheostomy Clean, Pneumonia, Tracheostomy Tube Stoma, ED Plug Mucous Trach Tube Additional Instructions or Follow Up instructions: You were admitted for a left lower lobe pneumonia that has a polymicrobial etiology similar to your last admission in June 2018. You were given IV antibiotics to combat the multidrug-resistant organism that is infecting your lung along with yeast that was found in your sputum. You were taking off metformin due to high lactic acid levels in your blood. You were given nebu lizer treatments as well as respiratory support and bronchodilator Tatian treatments in the form of nebulizers while hospitalized. You will continue with your own inhalers as you recover from your pneumonia and you will take an additional 7 days of steroids orally which may increase your sugars for which Lantus is indicated and needed to control your sugars as the infection will be prolonged if this is not done. You will likely be for referred to diabetic education counseling teaching as an outpatient with the use of your new medication of Lantus Solostar. We you will be given glucose supplies to include a glucometer, Chemstrips, alcohol swabs to better manage her sugars at home In addition metformin will be Held as you go home as this again will create increased lactic acid levels which are dangerous in your blood. In addition, you will continue with your glipizide metformin as well as blood pressure medications. I have added lisinopril as well as Aldactone since you have heart failure and this would allow you to improve pumping of the blood better as well as improve your mortality overall. He will continue with iron supplementation. You may require comprehensive home health services Due to your multiple medical needs as well as uncontrolled diabetes and polypharmacy for multiple medications that need to be monitored closely. You were taken off Coumadin while hospitalized since your INR level was high. Currently it is below therapeutic range and your Coumadin will need to be restarted And perhaps adjusted by your primary care provider accordingly. Return to your primary care provider within 1 or 2 weeks as well as your mechanical shop laborer in 2 to 3 weeks for evaluation and possible adjustment of your medications and further test labs or necessary studies. Follow-Up Care: [facility] - Wound/Ostomy (Will return to the [facility] as scheduled), [facility] - Diabetes Ed No Smoking: If you smoke, Please STOP! Call for help. Follow-up with: Raul Delaney MD [Primary Care Provider] - 1 Week (To return to PCP in 1 or 2 weeks) Madina Vallejo MD [Physician No Access] - (Follow-up within 1 to 2 weeks for reevaluation of tracheostomy tube with the need for decannulation and capping)
[2018-09-21] MEDS: METOPROLOL SUCCINATE 25 MG TABLET PO SCH (08:49)
[2018-09-21] MEDS: methylPREDNISolone SUCCINATE 40 MG/ML VIAL IVP SCH (08:49)
[2018-09-21] MEDS: LISINOPRIL 5 MG TABLET PO SCH (08:49)
[2018-09-21] MEDS: TAMSULOSIN 0.4 MG CAPSULE PO SCH (08:49)
[2018-09-21] MEDS: NYSTATIN 500000 UNITS/5 ML UDC PO SCH ×2 (08:49→11:57)
[2018-09-21] MEDS: CHLORHEXIDINE GLUCONATE 15 ML UDC PO SCH (08:49)
[2018-09-21] MEDS: MAGNESIUM OXIDE 400 MG TABLET PO SCH (08:50)
[2018-09-21] MEDS: SPIRONOLACTONE 25 MG TABLET PO SCH (08:50)
[2018-09-21] MEDS: FAMOTIDINE 20 MG TABLET PO SCH (08:50)
[2018-09-21] MEDS: LACTOBACILLUS RHAMNOSUS GG CAPSULE PO SCH (08:50)
[2018-09-21] MEDS: POLYETHYLENE GLYCOL 3350 17 GM PACKET PO SCH (08:51)
[2018-09-21] MEDS: CHOLECALCIFEROL 1,000 UNIT TABLET PO SCH (08:51)
[2018-09-21] MEDS: AMIODARONE 200 MG TABLET PO SCH (08:51)
[2018-09-21] MEDS: INSULIN GLARGINE 300 UNIT/3 ML PEN SUBQ SCH (08:54)
[2018-09-21] MEDS: INSULIN ASPART 300 UNIT/3 ML PEN SUBQ SCH ×3 (08:54→16:40)
[2018-09-21] MEDS ORDERED: SENNA 8.6 MG TABLET PO SCH (09:00)
[2018-09-21] MEDS: WARFARIN 5 MG TABLET PO SCH (13:59)
[2018-09-21 16:02] VITALS: BP 146/65
== END 2018-09-21 18:55 | disposition home or self-care (01) | DRG 177 ==
LOC: EDUNIT# → ED 13:54 → MS2 16:23
PROVIDERS: ADMIT Family Medicine; ATTEND Family Medicine
DX: J15.0 Pneumonia due to Klebsiella pneumoniae (principal); J18.1 Lobar pneumonia, unspecified organism; B37.1 Pulmonary candidiasis; E87.2 Acidosis; J44.0 Chronic obstructive pulmonary disease with (acute) lower respiratory infection; I13.0 Hypertensive heart and chronic kidney disease with heart failure and stage 1 through stage 4 chronic kidney disease, or unspecified chronic kidney disease; E78.00 Pure hypercholesterolemia, unspecified; N17.9 Acute kidney failure, unspecified; G47.30 Sleep apnea, unspecified; E11.9 Type 2 diabetes mellitus without complications; J44.1 Chronic obstructive pulmonary disease with (acute) exacerbation; J15.6 Pneumonia due to other Gram-negative bacteria; E11.22 Type 2 diabetes mellitus with diabetic chronic kidney disease; N18.3 Chronic kidney disease, stage 3 (moderate); I50.9 Heart failure, unspecified; E11.65 Type 2 diabetes mellitus with hyperglycemia; I48.2 Chronic atrial fibrillation; G47.33 Obstructive sleep apnea (adult) (pediatric); D50.9 Iron deficiency anemia, unspecified; E87.6 Hypokalemia; E83.42 Hypomagnesemia; E83.51 Hypocalcemia; Z16.39 Resistance to other specified antimicrobial drug; T38.3X5A Adverse effect of insulin and oral hypoglycemic [antidiabetic] drugs, initial encounter; I44.7 Left bundle-branch block, unspecified; K21.9 Gastro-esophageal reflux disease without esophagitis; E78.5 Hyperlipidemia, unspecified; I25.10 Atherosclerotic heart disease of native coronary artery without angina pectoris; M19.90 Unspecified osteoarthritis, unspecified site; Z66 Do not resuscitate; Z95.1 Presence of aortocoronary bypass graft; Z79.51 Long term (current) use of inhaled steroids; Z79.891 Long term (current) use of opiate analgesic; Z79.84 Long term (current) use of oral hypoglycemic drugs; Z85.21 Personal history of malignant neoplasm of larynx; Z95.810 Presence of automatic (implantable) cardiac defibrillator; Z43.0 Encounter for attention to tracheostomy; Z99.81 Dependence on supplemental oxygen
CPT/HCPCS: 36415; 51701; 71045; 80053; 80069; 81001; 81003; 82330; 83036; 83519; 83540; 83605; 83690; 83735; 83880; 83970; 84443; 84466; 84484; 85025; 85610; 87040; 87070; 87077; 87086; 87181; 87205; 87275; 87276; 93005; 94640; 96361; 96374; 99283; 99284

== ENCOUNTER 2018-09-23 08:00 | Outpatient (CLI) | payer MEDICARE, OTHER | END 2018-09-23 23:59 | disposition home or self-care (01) | LOC: LAB.N 08:00 | PROVIDERS: ATTEND Nurse Practitioner Gerontology | DX: I48.91 Unspecified atrial fibrillation (principal) | CPT/HCPCS: 85610 ==

== ENCOUNTER 2018-09-30 08:00 | Outpatient (CLI) | payer MEDICARE, OTHER | END 2018-09-30 23:59 | disposition home or self-care (01) | LOC: LAB.N 08:00 | PROVIDERS: ATTEND Nurse Practitioner Gerontology | DX: I48.91 Unspecified atrial fibrillation (principal) | CPT/HCPCS: 85610 ==

== ENCOUNTER 2018-10-07 08:00 | Outpatient (CLI) | payer MEDICARE, OTHER | END 2018-10-07 23:59 | disposition home or self-care (01) | LOC: LAB.N 08:00 | PROVIDERS: ATTEND Nurse Practitioner Gerontology | DX: I48.91 Unspecified atrial fibrillation (principal) | CPT/HCPCS: 85610 ==

== ENCOUNTER 2018-10-15 08:00 | Outpatient (CLI) | payer MEDICARE, OTHER | END 2018-10-15 23:59 | disposition home or self-care (01) | LOC: LAB.N 08:00 | PROVIDERS: ATTEND Nurse Practitioner Gerontology | DX: I48.91 Unspecified atrial fibrillation (principal) | CPT/HCPCS: 85610 ==

== ENCOUNTER 2018-10-17 19:19 | Outpatient (CLI) | payer MEDICARE, OTHER | END 2018-10-17 19:20 | disposition EMS.NT | LOC: EMS 19:19 | PROVIDERS: ATTEND Surgery | DX: R53.1 Weakness (principal); R42 Dizziness and giddiness; R73.09 Other abnormal glucose ==

== ENCOUNTER 2018-10-25 08:00 | Outpatient (CLI) | payer MEDICARE, OTHER | END 2018-10-25 23:59 | disposition home or self-care (01) | LOC: LAB.N 08:00 | PROVIDERS: ATTEND Nurse Practitioner Gerontology | DX: I48.91 Unspecified atrial fibrillation (principal) | CPT/HCPCS: 85610 ==

== ENCOUNTER 2018-10-31 19:54 | Outpatient (CLI) | payer MEDICARE, OTHER | END 2018-10-31 19:55 | disposition critical access hospital (66) | LOC: EMS 19:54 | PROVIDERS: ATTEND Surgery | DX: R06.02 Shortness of breath (principal) | CPT/HCPCS: A0425; A0427 ==

== ENCOUNTER 2018-10-31 20:11 | Inpatient (IN) | payer MEDICARE, OTHER ==
[2018-10-31] MEDS ORDERED: ALBUTEROL NEB 2.5 MG/3 ML INH STA (20:19)
--- NOTE | 2018-10-31 20:19 | ED Physician Documentation ---
PD HPI DYSPNEA - Stated complaint Stated Complaint: SOA - History obtained from History obtained from: Patient, EMS - History of Present Illness Timing - onset: Yesterday Timing - onset during: Light activity Timing - duration: Days (2 but abruptly more severe walking in to restaurant) Improved by: O2, Nitro, Lasix Associated symptoms: Cough, Bilateral edema. No: Fever, Chest pain / discomfort Similar symptoms before: Diagnosis (CHF and COPD) Recently seen: Admitted (Reports he was just discharged 2 weeks ago) - Treatment prior to arrival Treatment prior to arrival: 2 sublingual nitroglycerin and 80 mg of Lasix IV per EMS - Additional information Additional information: This is a 73-year-old man with known COPD and congestive heart failure he already has a tracheostomy. He is been feeling little more short of breath over the past day and then today he went on to the restaurant and became abruptly more short of breath walking in to the restaurant so called 911. He normally uses 4 L of home oxygen however he bumped it up to 5 in the past 24 hours. Ambulance states his O2 sat was 91% when they arrived he improved to 95% on nonrebreather mask. He was given nitroglycerin and Lasix in route but no nebulizers. Patient says his last nebulizer was around noon. He is bringing up adams phlegm and has noted increased peripheral edema. He denies current chest pain although he knows that he has had bypass surgery. He denies current prednisone. Review of Systems Unable to obtain: Other (Dyspnea) Constitutional: denies: Fever Ears: denies: Ear pain Nose: denies: Congestion Throat: denies: Sore throat Cardiac: reports: Pedal edema. denies: Chest pain / pressure Respiratory: reports: Dyspnea, Cough (Adams phlegm). denies: Hemoptysis GI: denies: Nausea, Vomiting PD PAST MEDICAL HISTORY - Past Medical History Cardiovascular: Congestive heart failure Respiratory: COPD Endocrine/Autoimmune: Type 2 diabetes - Past Surgical History General: Other (Tracheostomy) Cardiovascular: CABG - Present Medications Home Medications: Ambulatory Orders Medication Instructions Recorded Confirmed RX: Albuterol Sulfate [Proair Hfa 2 puffs INH Q4H PRN 04/05/17 09/19/18 Inhaler] RX: B6/Levomefolate/B12/Ala/If 1 tab PO BID 04/19/18 09/19/18 [Abatrex with Ala Tablet] RX: Tamsulosin [Flomax] 0.4 mg PO DAILY #30 capsule 06/21/18 09/19/18 RX: Amiodarone HCl 200 mg PO DAILY 09/18/18 09/19/18 RX: Fluticasone/Salmeterol [Advair 2 puffs INH BID 09/18/18 09/19/18 Hfa 230-21 Mcg Inhaler] RX: SITagliptin [Januvia] 100 mg PO DAILY 09/18/18 09/19/18 RX: Trazodone HCl 100 mg PO QPM 09/18/18 09/19/18 RX: glipiZIDE [Glipizide] 20 mg PO BID 09/18/18 09/19/18 RX: Warfarin Sodium 5 mg PO DAILY 09/20/18 09/20/18 Amox/Clav 875/125 [Augmentin] 1 each PO Q12H #20 tablet 09/21/18 Insulin Glargine [Lantus Solostar] 12 unit SQ BID #1 pen 09/21/18 RX: Lactobacillus Rhamnosus GG 1 cap PO DAILY #30 capsule 09/21/18 [Culturelle] RX: Lisinopril [Zestril] 2.5 mg PO BID #60 tablet 09/21/18 RX: Magnesium Oxide [Mag Ox] 800 mg PO DAILYWM #90 tablet 09/21/18 RX: Metoprolol Succinate [Toprol 25 mg PO BID #60 tablet 09/21/18 Xl] RX: Montelukast [Singulair] 10 mg PO QPM #30 tablet 09/21/18 RX: Nystatin 100,000 unit PO QID #140 ml 09/21/18 RX: Spironolactone [Aldactone] 12.5 mg PO BID #30 tablet 09/21/18 predniSONE [Prednisone] 60 mg PO DAILY #21 tablet 09/21/18 - Allergies Allergies/Adverse Reactions: Allergies Allergy/AdvReac Type Severity Reaction Status Date / Time No Known Drug Allergies Allergy Verified 10/31/18 20:19 - Living Situation Living Arrangement: reports: At home PD ED PE NORMAL - Vitals Vital signs reviewed: Yes (Patient is dyspneic. He can only speak 1-2 words covering the stoma of the) - General General: Alert and oriented X 3, Well developed/nourished - HEENT HEENT: Atraumatic, PERRL - Cardiac Cardiac: No murmur, Other (Tachycardic) - Respiratory Respiratory: Other (Wheezes heard throughout posterior lung taylor and crackles at the right base) - Abdomen Abdomen: Normal bowel sounds (Obese), Soft, Other - Extremities Extremities: Other (There is pitting edema of the lower extremities with erythematous haydee discoloration consistent with venous stasis. There is a open area of denuded skin on the left anterior nair that has a little bit of just clear oozing.) - Neuro Neuro: Alert and oriented X 3, Normal speech - Psych Psych: Normal mood, Normal affect Results - Vitals Vitals: Vital Signs - 24 hr 10/31/18 10/31/18 10/31/18 20:13 20:34 21:40 Temperature 36.6 C Heart Rate 106 H 109 H 101 H Respiratory 22 27 H Rate Blood Pressure 140/79 H 125/67 O2 Saturation 94 95 Oxygen O2 Source [Without Activity] Nasal cannula O2 Source [With Activity] Nasal cannula O2 Source Oxymask Oxygen Flow Rate 5 - EKG (time done) 2015 Rate: Rate (enter#) Rhythm: NSR Intervals: Wide QRS, LBBB Ischemia: Non specific changes (Consistent with left bundle branch block) - Labs Labs: Microbiology 10/31/18 21:00 Respiratory Culture - Preliminary Sputum Laboratory Tests 10/31/18 10/31/18 10/31/18 20:35 20:35 20:35 WBC 8.7 RBC 4.11 L Hgb 10.3 L Hct 31.2 L MCV 75.9 L MCH 25.1 L MCHC 33.1 RDW 18.5 H Plt Count 527 H MPV 7.1 L Neut # (Auto) 6.6 Lymph # (Auto) 1.0 L Benzie # (Auto) 0.8 Eos # (Auto) 0.1 Baso # (Auto) 0.2 H Absolute Nucleated RBC 0.00 Nucleated RBC % 0.0 PT 48.5 H INR 4.4 H Sodium 140 Potassium 4.4 Chloride 102 Carbon Dioxide 27 Anion Gap 11.0 BUN 19 Creatinine 1.2 Estimated GFR (MDRD) 59 L Glucose 173 H Lactic Acid Calcium 9.1 Magnesium Total Bilirubin 0.2 AST 16 ALT 17 Alkaline Phosphatase 73 Troponin I B-Natriuretic Peptide Total Protein 7.7 Albumin 3.6 Globulin 4.1 Albumin/Globulin Ratio 0.9 L Lipase 29 Urine Color Urine Clarity Urine pH Ur Specific Henniker Urine Protein Urine Glucose (UA) Urine Ketones Urine Occult Blood Urine Nitrite Urine Bilirubin Urine Urobilinogen Ur Leukocyte Esterase Ur Microscopic Review Urine Culture Comments 10/31/18 10/31/18 10/31/18 20:35 20:35 20:35 WBC RBC Hgb Hct MCV MCH MCHC RDW Plt Count MPV Neut # (Auto) Lymph # (Auto) Benzie # (Auto) Eos # (Auto) Baso # (Auto) Absolute Nucleated RBC Nucleated RBC % PT INR Sodium Potassium Chloride Carbon Dioxide Anion Gap BUN Creatinine Estimated GFR (MDRD) Glucose Lactic Acid 1.0 Calcium Magnesium Total Bilirubin AST ALT Alkaline Phosphatase Troponin I < 0.04 B-Natriuretic Peptide 279 H Total Protein Albumin Globulin Albumin/Globulin Ratio Lipase Urine Color Urine Clarity Urine pH Ur Specific Henniker Urine Protein Urine Glucose (UA) Urine Ketones Urine Occult Blood Urine Nitrite Urine Bilirubin Urine Urobilinogen Ur Leukocyte Esterase Ur Microscopic Review Urine Culture Comments 10/31/18 10/31/18 20:35 20:51 WBC RBC Hgb Hct MCV MCH MCHC RDW Plt Count MPV Neut # (Auto) Lymph # (Auto) Benzie # (Auto) Eos # (Auto) Baso # (Auto) Absolute Nucleated RBC Nucleated RBC % PT INR Sodium Potassium Chloride Carbon Dioxide Anion Gap BUN Creatinine Estimated GFR (MDRD) Glucose Lactic Acid Calcium Magnesium 2.2 Total Bilirubin AST ALT Alkaline Phosphatase Troponin I B-Natriuretic Peptide Total Protein Albumin Globulin Albumin/Globulin Ratio Lipase Urine Color LT. YELLOW Urine Clarity CLEAR Urine pH 7.0 Ur Specific Henniker <=1.005 Urine Protein NEGATIVE Urine Glucose (UA) NEGATIVE Urine Ketones NEGATIVE Urine Occult Blood NEGATIVE Urine Nitrite NEGATIVE Urine Bilirubin NEGATIVE Urine Urobilinogen 0.2 (NORMAL) Ur Leukocyte Esterase NEGATIVE Ur Microscopic Review NOT INDICATED Urine Culture Comments NOT INDICATED - Rads (name of study) CXR Radiology: EMP read indepedently, EMP read contemporaneously (Cardiomegaly; LLL infiltrate) PD MEDICAL DECISION MAKING - ED course Complexity details: reviewed old records, d/w patient ED course: Echo in Mar 2018 40-45% EF. Sputum cx September 2018: + Proteus mirabilis, ESBL- producing Kleb pneumoniae, moderate yeast. Patient still has productive cough and infiltrate LLL on CXR. Will treat with Zosyn and Diflucan. 2142: Patient remains tachypneic and tachycardic. CXR still shows LLL infiltrate. Sputum and blood cultures have been obtained. His lactate is normal. Electrolytes are normal glucose is elevated at 173. His white blood cell count is normal. Lung sounds have improved following the albuterol. I do think the patient needs to be admitted for observation. He lives alone. He has been in and out of the hospital as well as [facility] after admission. Discussed with Dr Comer who will come to the ED to evaluate patient. Departure - Departure Disposition: ED Place in Observation Clinical Impression: Moderate COPD (chronic obstructive pulmonary disease), Congestive heart failure, Pneumonia Discharge Date/Time: 10/31/18 22:28
[2018-10-31 20:47] LABS: BASOPHILS # (AUTO) 0.2 10^3/uL (0.0-0.1); EOSINOPHILS # (AUTO) 0.1 10^3/uL (0.0-0.7); EOSINOPHILS % (AUTO) 1.7 %; HGB - HEMOGLOBIN 10.3 g/dL (14.0-18.0); LYMPHOCYTES % (AUTO) 11.3 %; MEAN CORPUSCULAR HEMOGLOBIN 25.1 pg (27.0-31.0); MEAN CORPUSCULAR HGB CONC 33.1 g/dL (32.0-36.0); MEAN CORPUSCULAR VOLUME 75.9 fL (80.0-94.0); MEAN PLATELET VOLUME 7.1 fL (7.4-11.4); MONOCYTES # (AUTO) 0.8 10^3/uL (0.0-1.0); MONOCYTES % (AUTO) 9.5 %; NEUTROPHILS # (AUTO) 6.6 10^3/uL (1.5-6.6); NEUTROPHILS % (AUTO) 75.5 %; PLT - PLATELET COUNT 527 10^3/uL (130-450); RED BLOOD COUNT 4.11 10^6/uL (4.70-6.10); RED CELL DISTRIBUTION WIDTH 18.5 % (12.0-15.0); WHITE BLOOD COUNT 8.7 x10^3/uL (4.8-10.8)
[2018-10-31] MEDS ORDERED: PIPERACILLIN/TAZOBACTAM 3.375 GM in SODIUM CHLORIDE 0.9% MINIBAG 100 ML IV STA (20:52)
--- NOTE | 2018-10-31 20:52 | XRAY Report ---
Reason: chest pain Procedure Date: 10/31/2018 Accession Number: [id number] / [id number] Procedure: XR - Chest 1 View X-Ray CPT Code: 21039 FULL RESULT: EXAM: CHEST RADIOGRAPHY EXAM DATE: 10/31/2018 08:30 PM. CLINICAL HISTORY: Chest pain. COMPARISON: CHEST 1 VIEW 09/18/2018 2:23 PM. TECHNIQUE: 1 view. FINDINGS: Lungs/Pleura: Mild interstitial edema. Small left pleural effusion. No pneumothorax. Mediastinum: Status post sternotomy. Dual chamber pacemaker again noted. Stable tracheostomy tube placement. Other: None. IMPRESSION: Pulmonary findings suggesting mild fluid overload. RADIA
[2018-10-31 20:57] LABS: ALBUMIN 3.6 g/dL (3.2-5.5); ALBUMIN/GLOBULIN RATIO 0.9 (1.0-2.2); BILIRUBIN,TOTAL 0.2 mg/dL (0.2-1.0); CALCIUM 9.1 mg/dL (8.5-10.3); CREATININE 1.2 mg/dL (0.6-1.2); TOTAL PROTEIN 7.7 g/dL (6.7-8.2)
[2018-10-31] MEDS ORDERED: FLUCONAZOLE 200 MG/100 ML 100 ML IV ONE (20:58)
[2018-10-31 20:59] LABS: INR 4.4 (0.8-1.2); PT - PROTHROMBIN TIME 48.5 secs (9.9-12.6)
[2018-10-31 21:23] LABS: BILIRUBIN,URINE NEGATIVE (NEGATIVE); CLARITY,URINE CLEAR (CLEAR); GLUCOSE, URINE (UA) NEGATIVE (NEGATIVE); KETONES,URINE (UA) NEGATIVE (NEGATIVE); LEUKOCYTE ESTERASE, URINE NEGATIVE (NEGATIVE); NITRITE,URINE NEGATIVE (NEGATIVE); OCCULT BLOOD,URINE NEGATIVE (NEGATIVE); PROTEIN,URINE NEGATIVE (NEGATIVE); UROBILINOGEN,URINE 0.2 (NORMAL) E.U./dL (NORMAL)
[2018-10-31] MEDS ORDERED: FUROSEMIDE 40 MG/4 ML VIAL IVP STA (23:25)
--- NOTE | 2018-11-01 00:36 | HISTORY & PHYSICAL EXAMINATION ---
Chief Complaint - Chief Complaint Chief Complaint: dyspnea History of Present Illness - Admitted From Admitted From:: [facility] ED - History Obtained From Records Reviewed: yes History obtained from: patient - History of Present Illness HPI Comment/Other: Patient seen on 10/31/18 at 2315pm. Patient is a 73 y/o man with a significant medical history, who presented to the ED via EMS with complain acute dyspnea. This started around 7:30 pm after he had just left the restaurant. He had a baked potatoe and cod. He denied chest pain, abd pain, nausea, vomiting, fever or chills. He has lower extremity edema. He has opens sores in his lower extremities which appear to be weeping. He is on 4- 5 L Oxygen via nasal canula at home. He reports that he has been having increasing oxygen demand lately. 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 Upon presentation in the ED he was tachyneic with copious secretions coming from his trache. As a result of his presentation he was admitted for further management History - Past Medical History Cardiovascular: reports: Congestive heart failure, Hypertension, High cholesterol, Coronary artery disease (s/p CABG), Atrial fibrillation (on coumadin) Respiratory: reports: COPD Neuro: reports: None Endocrine/Autoimmune: reports: Type 2 diabetes GI: reports: GERD : reports: None HEENT: reports: Other Psych: reports: None Musculoskeletal: reports: Osteoarthritis Derm: reports: None, Other drug resistant infections (ESBL positive Klebsiella pneumonia) MRSA Hx?: No - Past Surgical History General: reports: Other (Tracheostomy) Cardiovascular: reports: CABG HEENT: reports: Cataracts, Tracheostomy - Family & Social History Family History Comment/Other: Patient was adopted and his children are healthy Living arrangement: At home Living Situation: Alone Social History Notes: Patient states that he lives alone in [place] at a [facility]. He has 2 children 1 of whom lives in the area and the other one lives in [place]. The patient is , he states his in 2000 and currently he is alone and takes care of himself. He states he is able to care for his own trach and does not have any caregivers or but does have somebody help in cleaning the home. The patient states that he smokes 1-1-1/2 packs of cigarettes a day and has been smoking for over 50 years. He denies any alcohol or drug use. - Substance History Use: Uses substance without health or social issues: Tobacco - POLST Patient has POLST: No POLST Status: DNR Meds/Allgy - Home Medications Home Medications: Ambulatory Orders Medication Instructions Recorded Confirmed Albuterol Sulfate [Proair Hfa 2 puffs INH Q4H PRN 04/05/17 09/19/18 Inhaler] B6/Levomefolate/B12/Ala/If 1 tab PO BID 04/19/18 09/19/18 [Abatrex with Ala Tablet] Tamsulosin [Flomax] 0.4 mg PO DAILY #30 capsule 06/21/18 09/19/18 Amiodarone HCl 200 mg PO DAILY 09/18/18 09/19/18 Fluticasone/Salmeterol [Advair Hfa 2 puffs INH BID 09/18/18 09/19/18 230-21 Mcg Inhaler] SITagliptin [Januvia] 100 mg PO DAILY 09/18/18 09/19/18 Trazodone HCl 100 mg PO QPM 09/18/18 09/19/18 glipiZIDE [Glipizide] 20 mg PO BID 09/18/18 09/19/18 Warfarin Sodium 5 mg PO DAILY 09/20/18 09/20/18 Amox/Clav 875/125 [Augmentin] 1 each PO Q12H #20 tablet 09/21/18 Insulin Glargine [Lantus Solostar] 12 unit SQ BID #1 pen 09/21/18 Lactobacillus Rhamnosus GG 1 cap PO DAILY #30 capsule 09/21/18 [Culturelle] Lisinopril [Zestril] 2.5 mg PO BID #60 tablet 09/21/18 Magnesium Oxide [Mag Ox] 800 mg PO DAILYWM #90 tablet 09/21/18 Metoprolol Succinate [Toprol Xl] 25 mg PO BID #60 tablet 09/21/18 Montelukast [Singulair] 10 mg PO QPM #30 tablet 09/21/18 Nystatin 100,000 unit PO QID #140 ml 09/21/18 Spironolactone [Aldactone] 12.5 mg PO BID #30 tablet 09/21/18 predniSONE [Prednisone] 60 mg PO DAILY #21 tablet 09/21/18 - Allergies Allergies/Adverse Reactions: Allergies Allergy/AdvReac Type Severity Reaction Status Date / Time No Known Drug Allergies Allergy Verified 10/31/18 20:19 Review of Systems - Constitutional Constitutional: denies: Fever, Chills, Malaise, Weakness, Diaphoresis - Eyes Eyes: denies: Pain, Blurred vision, Vision loss, Dipolpia - Ears, Nose & Throat Ears, Nose & Throat: denies: Vertigo, Nasal pain, Nasal discharge, Nosebleeds - Cardiovascular Cariovascular: reports: Irregular heart rate, Edema. denies: Chest pain, Lightheadedness, Syncope - Respiratory Respiratory: reports: Cough, Sputum production, Wheezing, SOB at rest, SOB with exertion. denies: Hemoptysis - Gastrointestinal Gastrointestinal: denies: Abdominal pain, Abdominal distention, Constipation, Nausea, Vomiting - Genitourinary Genitourinary: denies: Dysuria, Frequency, Urgency, Hematuria - Musculoskeletal Musculoskeletal: denies: Back pain, Muscle aches - Integumentary Integumentary: reports: Lesions (weeping sore on legs). denies: Rash, Pruritis - Neurological Neurological: denies: General weakness, Focal weakness, Headache, Dizziness, Numbness, Memory problems - Psychiatric Psychiatric: denies: Depression, Anxiety - Endocrine Endocrine: denies: Polyuria, Polydypsia - Hematologic/Lymphatic Hematologic/Lymphatic: denies: Anemia, Bruising, Petechiae Prior Level of Functionality: Patient lives alone. Is independent of activities of daily living but seems to be declining in his ability take care of himself Exam - Vital Signs Vital Signs: Vital Signs x48h Temp Pulse Pulse Resp BP BP Pulse Ox 10/31/18 22:50 36.5 C 67 24 124/68 99 10/31/18 22:44 36.6 C 94 20 98 10/31/18 21:40 101 H 27 H 125/67 95 10/31/18 20:34 109 H 22 10/31/18 20:13 36.6 C 106 H 140/79 H 94 - Physical Exam General Appearance: positive: Alert, Mild distress Eyes Bilateral: positive: Normal inspection, PERRL, EOMI ENT: positive: ENT inspection nml, Pharynx nml, No signs of dehydration Neck: positive: Nml inspection, No JVD, Trachea midline Respiratory: positive: Chest non-tender, Rhonchi Cardiovascular: positive: Tachycardia Abdomen: positive: Non-tender, No organomegaly, Nml bowel sounds, No distention. negative: Guarding, Rebound Back: positive: Nml inspection Skin: positive: Other (weeping wound on his nair bilaterally) Extremities: positive: Pedal edema (2+) Neurologic/Psychiatric: positive: Oriented x3, CN's nml (2-12), Motor nml, Sensation nml, Mood/affect nml Conclusion/Plan - Problem List (1) Acute respiratory distress Conclusion/Plan: ?Increase mucus secretions vs Pleural effusion Respiratory suctioned patient. Marked improvement Lasix 40 mg IV given (2) Congestive heart failure Conclusion/Plan: Resume lasix, spironolactone and metoprolol Patient given an extra dose of lasix 40mg IV Qualifiers: Heart failure type: unspecified Heart failure chronicity: acute on chronic Qualified Code(s): I50.9 - Heart failure, unspecified (3) Atrial fibrillation Conclusion/Plan: On coumadin INR 4.4. Will hold and recheck. Metoprolol and amiodarone Qualifiers: Atrial fibrillation type: unspecified Qualified Code(s): I48.91 - Unspecified atrial fibrillation (4) COPD (chronic obstructive pulmonary disease) Conclusion/Plan: Resume home regimen Duoneb q4hrs prn ordered Qualifiers: COPD type: unspecified COPD Qualified Code(s): J44.9 - Chronic obstructive pulmonary disease, unspecified (5) DM type 2 (diabetes mellitus, type 2) Conclusion/Plan: Sliding scale insulin On lantus 12 units subq daily Hold metformin, glipizide and januvia (6) Hyperlipidemia Conclusion/Plan: On atorvastatin (7) Hypertension Conclusion/Plan: On metoprolol and losartan Qualifiers: Hypertension type: essential hypertension Qualified Code(s): I10 - Essential (primary) hypertension (8) GERD (gastroesophageal reflux disease) Conclusion/Plan: On prilosec at home Qualifiers: Esophagitis presence: esophagitis presence not specified Qualified Code(s): K21.9 - Gastro-esophageal reflux disease without esophagitis - Lab Results Fish Bones: 10/31/18 20:35 10/31/18 20:35 Core Measures - Anticipated LOS I expect patient to be DC'd or transferred within 96 hours.: Yes - DVT/VTE - Prophylaxis VTE/DVT Device ordered at admit?: Yes VTE/DVT Prophylaxis med ordered at admit?: Yes
[2018-11-01] MEDS: SODIUM CHLORIDE FLUSH 0.9% 10 ML SYRINGE IVP SCH ×3 (01:25→17:06)
[2018-11-01] MEDS: IPRATROPIUM/ALBUTEROL 3 ML NEB INH PRN ×4 (03:59→22:34)
[2018-11-01 06:30] LABS: BASOPHILS # (AUTO) 0.1 10^3/uL (0.0-0.1); BASOPHILS % (AUTO) 1.4 %; EOSINOPHILS # (AUTO) 0.2 10^3/uL (0.0-0.7); EOSINOPHILS % (AUTO) 2.2 %; LYMPHOCYTES # (AUTO) 1.2 10^3/uL (1.5-3.5); LYMPHOCYTES % (AUTO) 14.6 %; MEAN CORPUSCULAR HEMOGLOBIN 23.6 pg (27.0-31.0); MEAN CORPUSCULAR HGB CONC 31.2 g/dL (32.0-36.0); MEAN CORPUSCULAR VOLUME 75.5 fL (80.0-94.0); MONOCYTES # (AUTO) 0.8 10^3/uL (0.0-1.0); MONOCYTES % (AUTO) 9.5 %; NEUTROPHILS # (AUTO) 6.1 10^3/uL (1.5-6.6); NEUTROPHILS % (AUTO) 72.3 %; PLT - PLATELET COUNT 534 10^3/uL (130-450); RED BLOOD COUNT 4.24 10^6/uL (4.70-6.10); RED CELL DISTRIBUTION WIDTH 18.5 % (12.0-15.0); WHITE BLOOD COUNT 8.5 x10^3/uL (4.8-10.8)
[2018-11-01 06:38] LABS: CREATININE 1.3 mg/dL (0.6-1.2)
[2018-11-01 06:47] LABS: PT - PROTHROMBIN TIME 55.3 secs (9.9-12.6)
[2018-11-01] MEDS ORDERED: FUROSEMIDE 40 MG/4 ML VIAL IVP STA (07:25)
[2018-11-01] MEDS: INSULIN ASPART 300 UNIT/3 ML PEN SUBQ SCH ×4 (08:05→21:31)
[2018-11-01] MEDS ORDERED: ENOXAPARIN 40 MG/0.4 ML SYRINGE SUBQ SCH (09:00)
[2018-11-01] MEDS ORDERED: LISINOPRIL 5 MG TABLET PO SCH (09:00)
[2018-11-01] MEDS ORDERED: METOPROLOL SUCCINATE 25 MG TABLET PO SCH (09:00)
[2018-11-01] MEDS ORDERED: SPIRONOLACTONE 25 MG TABLET PO SCH (09:00)
[2018-11-01] MEDS: AMIODARONE 200 MG TABLET PO SCH (09:12)
[2018-11-01] MEDS: LACTOBACILLUS RHAMNOSUS GG CAPSULE PO SCH (09:13)
[2018-11-01] MEDS: TAMSULOSIN 0.4 MG CAPSULE PO SCH (09:16)
[2018-11-01] MEDS: POLYETHYLENE GLYCOL 3350 17 GM PACKET PO SCH (09:20)
[2018-11-01] MEDS: INSULIN GLARGINE 300 UNIT/3 ML PEN SUBQ SCH ×2 (09:34→21:31)
--- NOTE | 2018-11-01 12:04 | MISCELLANEOUS PROVIDER NOTE ---
Miscellaneous Provider Note - - Note: HPI: Patient is a 73 y/o man with a significant medical history, who presented to the ED via EMS with complain acute dyspnea. This started around 7:30 pm after he had just left the restaurant. He had a baked potatoe and cod. He denied chest pain, abd pain, nausea, vomiting, fever or chills. He has lower extremity edema. He has opens sores in his lower extremities which appear to be weeping. He is on 4-5 L Oxygen via nasal canula at home. He reports that he has been having incre asing oxygen demand lately. 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 Upon presentation in the ED he was tachyneic with copious secretions coming from his trache. As a result of his presentation he was admitted for further management Subjective: Patient seen at bedside with no complaints of copious secretions from trach has mild shortness of breath with no fevers, chest pain, mild dyspnea on exertion noted. Bilateral lower extremity edema with weeping open lesions to legs. Objective: Vital signs hemodynamically stable. Currently afebrile, HR 85 bpm, 104/61, RR 18, 95% O2 saturation on 10 L of coolmist. General: Patient alert and oriented x3. In no acute respiratory distress. Speaks intermittently via trach occlusion. HEENT: Pupils equal round react and light and accommodation, no conjunctival pallor, no scleral icterus. NCAT Neck: Tracheostomy is clean dry and intact with no copious secretion. No surro unding erythema. Next CV/lungs: RRR. S1-S2 within normal limits. No murmurs. No gallops or clicks. Decreased breath sounds with expiratory rhonchi and fine rales to the bases. No wheezing or increased work of breath or retractions. Abdomen: Benign Extremities/skin: 1-2+ pitting edema to bilateral lower extremity, brawny appearance with mild erythema and open superficial wounds that are weeping with stanford brown exudates to lesions. No necrotic borders or bulla. 2+ pulses dorsalis pedis bilaterally. Neuro: Grossly intact Labs: Reviewed Imaging studies reviewed Assessment/plan: (1) Acute respiratory distress Conclusion/Plan: Chest x-ray does reveal some interstitial edema with probable vascular congestion consistent with fluid overload/CHF. Patient has already received 40 mg of IV Lasix overnight and there is apparent increase in his current weight to 108.8 kg when previously he has been below this, will again give Lasix 40 mg IV x1. Will place on a regimen of Lasix may uptitrate Aldactone. Repeat echocardiogram. Patient may be mucous plugging. Will add bronchodilator Pulmicort along with Pulmicort if needed with Performist. Respiratory suctioned patient. Marked improvement. We will continue with current coolmist at 10 L. Saturations are adequate. (2) Acute on chronic decompensated systolic Congestive heart failure, Class C Conclusion/Plan: We will continue with Lasix, Aldactone, metoprolol; guideline directed medical therapy. 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 Will DC Lovenox due to synergistic coagulopathy type effect. Will follow daily INR levels. Resume when patient has adequate INR. No evidence of bleeding. (4) Chronic Atrial fibrillation Conclusion/Plan: Patient is anticoagulated on Coumadin and essentially has a Supratherapeutic INR of 5.0 today.Will hold Coumadin for now. Continue with antiarrhythmics, Metoprolol and amiodarone Qualifiers: Atrial fibrillation type: unspecified Qualified Code(s): I48.91 - Unspecified atrial fibrillation (5)Chronic COPD (chronic obstructive pulmonary disease) Without exacerbation Conclusion/Plan: Resume home regimen Duoneb q4hrs prn ordered Qualifiers: COPD type: unspecified COPD Qualified Code(s): J44.9 - Chronic obstructive pulmonary disease, unspecified (6) DM type 2 (diabetes mellitus, type 2) Conclusion/Plan: Sliding scale insulin On lantus 12 units subq daily Hold metformin, glipizide and januvia (7) Hyperlipidemia Conclusion/Plan: On atorvastatin (8) Hypertension Conclusion/Plan: On metoprolol and losartan Qualifiers: Hypertension type: essential hypertension Qualified Code(s): I10 - Essential (primary) hypertension (9) GERD (gastroesophageal reflux disease) Conclusion/Plan: On prilosec at home Qualifiers: Esophagitis presence: esophagitis presence not specified Qualified Code(s): K21.9 - Gastro-esophageal reflux disease without esophagitis Continue with DVT/GI prophylaxis; Placed on SCD boots only. DC Lovenox for now as patient is Already properly anticoagulated. GI prophylaxis with H2 mehran. CODE STATUS: DNR/DNI
[2018-11-01] MEDS ORDERED: LEVALBUTEROL 1.25 MG/3 ML NEB INH PRN (12:21)
[2018-11-01] MEDS: FUROSEMIDE 40 MG/4 ML VIAL IVP SCH (14:42)
[2018-11-01] MEDS: SODIUM CHLORIDE FLUSH 0.9% 10 ML SYRINGE IVP PRN (14:43)
[2018-11-01] MEDS: FORMOTEROL FUMARATE NEB 20 MCG/2 ML INH SCH (20:10)
[2018-11-01] MEDS: BUDESONIDE 0.5 MG/2 ML NEB INH SCH (20:10)
[2018-11-01] MEDS ORDERED: traZODone 50 MG TABLET PO SCH (21:00)
[2018-11-01] MEDS ORDERED: MONTELUKAST 10 MG TABLET PO SCH (21:00)
[2018-11-01] MEDS: METOPROLOL SUCCINATE 25 MG TABLET PO SCH (21:29)
[2018-11-02] MEDS: SODIUM CHLORIDE FLUSH 0.9% 10 ML SYRINGE IVP SCH ×2 (00:10→08:43)
[2018-11-02] MEDS: SODIUM CHLORIDE FLUSH 0.9% 10 ML SYRINGE IVP PRN (05:17)
[2018-11-02] MEDS: FUROSEMIDE 40 MG/4 ML VIAL IVP SCH (05:17)
[2018-11-02 06:51] LABS: BASOPHILS # (AUTO) 0.1 10^3/uL (0.0-0.1); BASOPHILS % (AUTO) 1.3 %; EOSINOPHILS # (AUTO) 0.2 10^3/uL (0.0-0.7); EOSINOPHILS % (AUTO) 2.6 %; HGB - HEMOGLOBIN 10.3 g/dL (14.0-18.0); LYMPHOCYTES # (AUTO) 1.3 10^3/uL (1.5-3.5); LYMPHOCYTES % (AUTO) 14.3 %; MEAN CORPUSCULAR HEMOGLOBIN 23.7 pg (27.0-31.0); MEAN CORPUSCULAR HGB CONC 31.3 g/dL (32.0-36.0); MEAN CORPUSCULAR VOLUME 75.7 fL (80.0-94.0); MEAN PLATELET VOLUME 7.1 fL (7.4-11.4); MONOCYTES # (AUTO) 0.8 10^3/uL (0.0-1.0); MONOCYTES % (AUTO) 8.9 %; NEUTROPHILS # (AUTO) 6.4 10^3/uL (1.5-6.6); NEUTROPHILS % (AUTO) 72.9 %; PLT - PLATELET COUNT 537 10^3/uL (130-450); RED BLOOD COUNT 4.36 10^6/uL (4.70-6.10); RED CELL DISTRIBUTION WIDTH 18.3 % (12.0-15.0); WHITE BLOOD COUNT 8.8 x10^3/uL (4.8-10.8)
[2018-11-02 07:00] LABS: CREATININE 1.4 mg/dL (0.6-1.2)
[2018-11-02 07:04] LABS: INR 3.4 (0.8-1.2); PT - PROTHROMBIN TIME 37.6 secs (9.9-12.6)
[2018-11-02] MEDS: BUDESONIDE 0.5 MG/2 ML NEB INH SCH (07:09)
[2018-11-02] MEDS: IPRATROPIUM/ALBUTEROL 3 ML NEB INH PRN (07:09)
[2018-11-02] MEDS: FORMOTEROL FUMARATE NEB 20 MCG/2 ML INH SCH (07:09)
[2018-11-02] MEDS: INSULIN ASPART 300 UNIT/3 ML PEN SUBQ SCH ×2 (07:37→12:33)
--- NOTE | 2018-11-02 08:15 | Discharge Plan ---
Discharge Plan Disposition: Home, Self Care Condition: Good Prescriptions: Furosemide [Lasix] 20 mg PO BIDDIURETIC #60 tablet Sacubitril/Valsartan [Entresto 24 mg-26 mg Tablet] 1 each PO BID #60 tablet Spironolactone [Aldactone] 25 mg PO BID #60 tablet Diet: Diabetic (Low-sodium,2 g, Fluid restriction; Free water 1800 mL / 24 hours) Activity Restrictions: Activity as Tolerated Shower Restrictions: No Driving Restrictions: No Instruction Topics: Heart Failure Meds Control, Heart Failure Tracking Weight, Cardiomyopathy Meds, Heart Failure Diet Changes Additional Instructions or Follow Up instructions: You were admitted for 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 This requires an increase in your existing diuretic at home with Aldactone to be uptitrated to 25 mg orally twice daily. In addition he will be given a prescription for Lasix which you are receiving while being hospitalized orally 20 mg twice daily. I would encourage you to be on a 2 g sodium diet and you cannot drink more than 1800 mL of free water fluid in a 24. As this would increase your congestive heart failure symptoms of fluid overload that will eventually lead to pulmonary edema and increase in your oxygen requirement. In addition you should monitor your daily weights and monitor whether you will require further aggressive medical management that is going to be handled by your primary care provider or your primary food taster. In addition you are found to have a supratherapeutic INR which is currently not at goal and was as high as 3.4 prior to her discharge. Although you are not currently bleeding these levels may represent a risk of bleeding. I would encourage you to hold your Coumadin for an additional 2 days and have this rechecked at a Coumadin clinic or at your PCPs office in a timely fashion to see if the INR has come down to a goal of 2-3. He will continue with all your other medications however we will discontinue lisinopril for now as you have worsening congestive heart failure that will require a new medication called Entresto which will be started at low dose and then increased after 2 to 4 weeks this will be managed by your PCP or primary food taster. You return to your primary food taster in a timely fashion within 1 or 2 weeks. Your primary care provider would likely see you within 1 week. Follow-Up Care: [facility] - Wound/Ostomy (To follow-up with wound MAC clinic in 1 or 2 weeks) No Smoking: If you smoke, Please STOP! Call for help. Follow-up with: Georgie Monet ARNP [Primary Care Provider] - 11/04/18 9:00 am (Follow-up with your PCP in approximately 3 days time for INR check. Follow-up with your primary food taster Dr. Madera in 1 or 2 weeks either in [place] or in [place], [place]. )
[2018-11-02] MEDS: POLYETHYLENE GLYCOL 3350 17 GM PACKET PO SCH (08:24)
--- NOTE | 2018-11-02 08:28 | DISCHARGE SUMMARY ---
Discharge Summary Admit Date: 10/31/18 Discharge Date: 11/02/18 Discharging Provider: Dr. Haas Primary Care Provider: Georgie Monet Code Status: Do Not Attempt Resuscitation Condition at Discharge: Good Discharge Disposition: 01 Home, Self Care - DIAGNOSES Admission Diagnoses: (1) COPD without exacerbation, home O2 dependent, back to baseline with Acute respiratory distress, Improved (2) Acute on chronic decompensated systolic Congestive heart failure, Class C, Ejection fraction 25 to 30%, stable (3) Coagulopathy secondary to Coumadin, Stable (4) History of pacemaker and Chronic Atrial fibrillation, Stable (6) DM type 2 (diabetes mellitus, type 2), Stable (7) Hyperlipidemia, Stable (8) Hypertension, Stable (9) GERD (gastroesophageal reflux disease), Stable Discharge Diagnoses with Status of Each Condition: (1) Acute respiratory distress (2) Acute on chronic decompensated systolic Congestive heart failure, Class C (3) Coagulopathy secondary to Coumadin (4) Chronic Atrial fibrillation (5)Chronic COPD (chronic obstructive pulmonary disease) Without exacerbation (6) DM type 2 (diabetes mellitus, type 2) (7) Hyperlipidemia (8) Hypertension (9) GERD (gastroesophageal reflux disease) - HPI History of Present Illness: Patient is a 73 y/o man with a significant medical history, who presented to the ED via EMS with complain acute dyspnea. This started around 7:30 pm after he had just left the restaurant. He had a baked potatoe and cod. He denied chest pain, abd pain, nausea, vomiting, fever or chills. He has lower extremity edema. He has opens sores in his lower extremities which appear to be weeping. He is on 4- 5 L Oxygen via nasal canula at home. He reports that he has been having increasing oxygen demand lately. 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 Upon presentation in the ED he was tachyneic with copious secretions coming from his trache. As a result of his presentation he was admitted for further management - HOSPITAL COURSE Hospital Course: Mr. Fernandez Cast is a 73-year-old with history of Laryngeal cancer status post tracheostomy, Oxygen dependent-COPD, systolic heart failure with a prior ejection fraction of 45%, Insulin requiring type 2 diabetes mellitus, home O2 dependence on 4 to 5 L via nasal cannula, hyperlipidemia, hypertension, who pr esented with increasing dyspnea as well as bilateral lower extremity edema with weepiness to some superficial ulcerations without any fevers, chills, abdominal pain, chest pain, GI or symptoms. Patient was found to have a BNP of 279 on admission with coagulopathy with a supratherapeutic INR for which he is anticoagulated on Coumadin for his chronic atrial fibrillation. In addition patient is on Aldactone diuretic along with lisinopril metoprolol and guideline directed medical therapy for his congestive cardiomyopathy deemed to be systolic type, class C. Patient had a chest x-ray which showed interstitial edema, Pulmonary vascular congestion suggestive of fluid overload and without any e vidence of underlying pneumonia. Patient had been made admitted in the past for pneumonia that was previously treated with IV antibiotics mainly due to patient's constant touching of his trach with his hands and possible underlying colonization. Patient grew out a polymicrobial on initial Gram stain with some yeast but with no identification. Patient was given IV Zosyn/Diflucan in the ED and was placed on IV Lasix up to 40 mg twice daily. Patient was essentially borderline hypotension with euvolemia as it pertained to aggressive diuresis. Patient's urinary output was more than 7000 mL in his hospital stay. Patient's creatinine was 1.4 upon discharge due to aggressive diureses. However patient's baseline creatinine ranges between 1.0-1.5 and underlying chronic kidney disease stage III likely. Patient had an echocardiogram which showed an ejection fraction 25-30% with moderate right atrial enlargement, severe increase of left atrial volume index, moderate global hypokinesis along with evidence of pacemaker leads in the right atria. Due to worsening ischemic congestive cardiomyopathy patient was placed on uptitrated doses of Aldactone at 25 mg p.o. twice daily and recommendation is to start Entresto at a low dose and then uptitrate after 2 to 4 weeks, to be directed by either his PCP or primary customer service analyst. Throughout the interim patient did not have any type of epistaxis or acute blood loss anemia, however patient has anemia likely related to hemodilution from CHF without any bleeding events despite his INR being at 3.4 upon discharge. Patient's Coumadin was held throughout hospitalization and the goal is for him to resume Coumadin in about 2 days time for a goal of 2-3 due to his chronic atrial fibrillation with a pacemaker. Upon discharge patient was hemodynamically stable and no episodes of increased requirements of oxygenation with a coolmist at 6 L was observed. Patient to continue with his supplemental oxygen at home, inhalers, and pulmonary toileting regimen. Patient has been told not to touch his tracheostomy due to cross-contamination. Patient to resume all other home medications with the exception of lisinopril as he will be on Entresto. PCP to follow-up in approximately 2 to 3 days for INR check. Follow-up with your primary customer service analyst Dr. Madera in 1 or 2 weeks either in [place] or in [place], [place]. - ALLERGIES Allergies/Adverse Reactions: Allergies Allergy/AdvReac Type Severity Reaction Status Date / Time No Known Drug Allergies Allergy Verified 10/31/18 20:19 - MEDICATIONS Home Medications: Ambulatory Orders Medication Instructions Recorded Confirmed Albuterol Sulfate [Proair Hfa 2 puffs INH BID 04/05/17 11/01/18 Inhaler] B6/Levomefolate/B12/Ala/If 1 tab PO BID 04/19/18 11/01/18 [Abatrex with Ala Tablet] Tamsulosin [Flomax] 0.4 mg PO DAILY #30 capsule 06/21/18 11/01/18 Amiodarone HCl 200 mg PO DAILY 09/18/18 11/01/18 Fluticasone/Salmeterol [Advair Hfa 2 puffs INH BID 09/18/18 11/01/18 230-21 Mcg Inhaler] SITagliptin [Januvia] 100 mg PO DAILY 09/18/18 11/01/18 Trazodone HCl 100 mg PO QPM PRN 09/18/18 11/01/18 glipiZIDE [Glipizide] 20 mg PO BID 09/18/18 11/01/18 Lactobacillus Rhamnosus GG 1 cap PO DAILY #30 capsule 09/21/18 11/01/18 [Culturelle] Magnesium Oxide [Mag Ox] 800 mg PO DAILYWM #90 tablet 09/21/18 11/01/18 Metoprolol Succinate [Toprol Xl] 25 mg PO BID #60 tablet 09/21/18 11/01/18 Montelukast [Singulair] 10 mg PO QPM #30 tablet 09/21/18 11/01/18 Insulin Glargine [Lantus Solostar] 14 unit SQ BID 11/01/18 11/01/18 Furosemide [Lasix] 20 mg PO BIDDIURETIC #60 tablet 11/02/18 Sacubitril/Valsartan [Entresto 24 1 each PO BID #60 tablet 11/02/18 mg-26 mg Tablet] Spironolactone [Aldactone] 25 mg PO BID #60 tablet 11/02/18 - PHYSICAL EXAM AT DISCHARGE General Appearance: positive: No acute distress, Alert Eyes Bilateral: positive: Normal inspection, PERRL, EOMI ENT: positive: ENT inspection nml, Pharynx nml, No signs of dehydration Neck: positive: Nml inspection, Thyroid nml, No JVD, Trachea midline (Tracheostomy is clean dry and intact with no surrounding erythema). negative: Carotid bruit, Swelling/bruising, Tracheal deviation Respiratory: positive: Chest non-tender, No respiratory distress, Rales (Faint scattered rales), Rhonchi (Improved aeration to bilateral taylor). negative: Wheezes Cardiovascular: positive: No murmur, No gallop, Irregularly irregular, JVD present. negative: Gallop/S3, Gallop/S4 Peripheral Pulses: positive: 2+ Abdomen: positive: Non-tender, No organomegaly, Nml bowel sounds, No distention. negative: Tenderness Skin: positive: Color nml, Warm, Other (Bilateral superficial exudates to anterior tibial regions. No necrotic ulcers, bulla or satellite lesions) Extremities: positive: Non-tender, Full ROM, Pedal edema, Other (Patient with 1+ pitting edema bilateral lower extremity with weeping-like appearance). negative: Joint swelling Neurologic/Psychiatric: positive: Oriented x3, CN's nml (2-12) - LABS Result Diagrams: 11/02/18 06:33 11/02/18 06:33 - DIAGNOSTIC IMAGING Diagnostic Imaging Results: Final report reviewed - FOLLOW UP Follow Up: To follow-up with PCP in 2 to 3 days, INR check, primary customer service analyst to follow- up in 1 or 2 weeks - TIME SPENT Time Spent in Discharge (Minutes): 35
[2018-11-02] MEDS: INSULIN GLARGINE 300 UNIT/3 ML PEN SUBQ SCH (08:35)
[2018-11-02] MEDS: LACTOBACILLUS RHAMNOSUS GG CAPSULE PO SCH (08:37)
[2018-11-02] MEDS: AMIODARONE 200 MG TABLET PO SCH (08:37)
[2018-11-02] MEDS: TAMSULOSIN 0.4 MG CAPSULE PO SCH (08:39)
[2018-11-02] MEDS: METOPROLOL SUCCINATE 25 MG TABLET PO SCH (08:39)
[2018-11-02] MEDS ORDERED: SPIRONOLACTONE 25 MG TABLET PO SCH (09:00)
[2018-11-02 12:46] VITALS: BP 121/66
--- NOTE | 2018-11-02 13:00 | MISCELLANEOUS PROVIDER NOTE ---
Miscellaneous Provider Note - - Note: Subjective: Patient feels weak and maintaining his saturations well. No overnight events. There are multiple psychosocial issues preventing discharge which would include family that do not take care of him and will be some barriers preventing discharge notably patient's family. Objective: Hemodynamically stable. Afebrile. Nontachypneic, non-tachycardic General: Patient chronically ill-appearing next CV/lungs: Irregular rate and rhythm, decreased breath sounds bilaterally with improved aeration mild faint rales, no wheezing, no rhonchi. Abdomen: Benign Extremities/skin bilateral 1-2+ pitting edema with chronic superficial ulcerations to tibial aspects of legs. Covered with gauze. No clubbing, no maculopapular rashes. No necrotic lesions. Neuro: Grossly intact Labs: Reviewed Imaging studies: Reviewed Assessment/plan: (1) Acute respiratory distress (2) Acute on chronic decompensated systolic Congestive heart failure, Class C (3) Coagulopathy secondary to Coumadin (4) Chronic Atrial fibrillation (5)Chronic COPD (chronic obstructive pulmonary disease) Without exacerbation (6) DM type 2 (diabetes mellitus, type 2) (7) Hyperlipidemia (8) Hypertension (9) GERD (gastroesophageal reflux disease) Plan: Apparently patient has improved oxygenation and at his baseline however feels generalized weakness. Per PT: Pt requires chronic use of O2. Pt recieved sitting in B/S chair and agrees to treatment with PT. Pt presents with decreased balance as seen through administered Tinetti, limited endurance, decreased safety awareness and is at an increased risk for falls which limits his return to home at this time. Pt was able to demonstrate CtG ambulation for short distances while in room using RW as well as sit to stand mobility from chairs with CtG A. Pt has balance limitations both statically and dynamically with turning, rhomberg, feet together stance, altered stride length symmetry and staggers with pertubation. Pt will benefit from cont skilled PT from placement at SNF upon D/C from hospital. Pt is in agreement with this plan. Pt left sitting upright in B/S chair. There are some barriers to home placement with family watching patient's progression of health status. We will continue with medical management for now. print binding and finishing worker is involved in d/c planning.
[2018-11-02] MEDS ORDERED: FUROSEMIDE 20 MG TABLET PO SCH (14:00)
== END 2018-11-02 14:50 | disposition home or self-care (01) | DRG 291 ==
LOC: EDUNIT# → ED 20:11 → MS2 21:44 → OBSVTOIN 11-01 13:19
PROVIDERS: ADMIT Internal Medicine; ATTEND Family Medicine
DX: I13.0 Hypertensive heart and chronic kidney disease with heart failure and stage 1 through stage 4 chronic kidney disease, or unspecified chronic kidney disease (principal); I50.23 Acute on chronic systolic (congestive) heart failure; I11.0 Hypertensive heart disease with heart failure; L97.221 Non-pressure chronic ulcer of left calf limited to breakdown of skin; I48.91 Unspecified atrial fibrillation; E11.9 Type 2 diabetes mellitus without complications; I25.10 Atherosclerotic heart disease of native coronary artery without angina pectoris; L97.211 Non-pressure chronic ulcer of right calf limited to breakdown of skin; E11.22 Type 2 diabetes mellitus with diabetic chronic kidney disease; L98.9 Disorder of the skin and subcutaneous tissue, unspecified; N18.3 Chronic kidney disease, stage 3 (moderate); Z99.81 Dependence on supplemental oxygen; Z95.1 Presence of aortocoronary bypass graft; J44.9 Chronic obstructive pulmonary disease, unspecified; I48.2 Chronic atrial fibrillation; Z79.01 Long term (current) use of anticoagulants; I42.0 Dilated cardiomyopathy; I25.5 Ischemic cardiomyopathy; Z72.0 Tobacco use; I95.9 Hypotension, unspecified; D63.8 Anemia in other chronic diseases classified elsewhere; K21.9 Gastro-esophageal reflux disease without esophagitis; E78.5 Hyperlipidemia, unspecified; R06.03 Acute respiratory distress; R26.89 Other abnormalities of gait and mobility; Z66 Do not resuscitate; Z60.2 Problems related to living alone; Z95.0 Presence of cardiac pacemaker; Z93.0 Tracheostomy status; Z85.21 Personal history of malignant neoplasm of larynx; Z79.899 Other long term (current) drug therapy; Z87.01 Personal history of pneumonia (recurrent); Z79.51 Long term (current) use of inhaled steroids; Z79.4 Long term (current) use of insulin; Z91.81 History of falling
CPT/HCPCS: 36415; 71045; 80048; 80053; 81003; 83605; 83690; 83735; 83880; 84484; 85025; 85610; 87040; 87070; 87077; 87181; 87205; 93005; 93306; 94640; 94644; 94645; 96365; 96375; 96376; 97162; 99284; A9270; G0378; J1815; J7626; 81001; 87086

== ENCOUNTER 2018-11-04 08:00 | Outpatient (CLI) | payer MEDICARE, OTHER | END 2018-11-04 23:59 | disposition home or self-care (01) | LOC: LAB.N 08:00 | PROVIDERS: ATTEND Nurse Practitioner Gerontology | DX: I48.91 Unspecified atrial fibrillation (principal) | CPT/HCPCS: 85610 ==

== ENCOUNTER 2018-11-08 08:00 | Outpatient (CLI) | payer MEDICARE, OTHER | END 2018-11-08 23:59 | disposition home or self-care (01) | LOC: LAB.N 08:00 | PROVIDERS: ATTEND Nurse Practitioner Gerontology | DX: I48.91 Unspecified atrial fibrillation (principal) | CPT/HCPCS: 85610 ==

== ENCOUNTER 2018-11-15 14:44 | Outpatient (CLI) | payer MEDICARE, OTHER | END 2018-11-15 23:59 | disposition home or self-care (01) | LOC: LAB.N 14:44 | PROVIDERS: ATTEND Nurse Practitioner Gerontology | DX: I48.91 Unspecified atrial fibrillation (principal) | CPT/HCPCS: 85610 ==

== ENCOUNTER 2018-11-22 14:35 | Outpatient (CLI) | payer MEDICARE, OTHER | END 2018-11-22 23:59 | disposition home or self-care (01) | LOC: LAB.N 14:35 | PROVIDERS: ATTEND Nurse Practitioner Gerontology | DX: I48.91 Unspecified atrial fibrillation (principal) | CPT/HCPCS: 85610 ==

== ENCOUNTER 2018-11-26 08:00 | Outpatient (CLI) | payer MEDICARE, OTHER | END 2018-11-26 23:59 | disposition home or self-care (01) | LOC: LAB.WCP 08:00 | PROVIDERS: ATTEND Nurse Practitioner Gerontology | DX: I48.91 Unspecified atrial fibrillation (principal) | CPT/HCPCS: 85610 ==

== ENCOUNTER 2018-11-29 08:00 | Outpatient (CLI) | payer MEDICARE, OTHER | END 2018-11-29 23:59 | disposition home or self-care (01) | LOC: LAB.WCP 08:00 | PROVIDERS: ATTEND Nurse Practitioner Gerontology | DX: I48.91 Unspecified atrial fibrillation (principal) | CPT/HCPCS: 85610 ==

== ENCOUNTER 2018-12-04 08:00 | Outpatient (CLI) | payer MEDICARE, OTHER | END 2018-12-04 23:59 | disposition home or self-care (01) | LOC: LAB.N 08:00 | PROVIDERS: ATTEND Nurse Practitioner Gerontology | DX: I48.91 Unspecified atrial fibrillation (principal) | CPT/HCPCS: 85610 ==

== ENCOUNTER 2018-12-08 03:56 | Inpatient (IN) | payer MEDICARE, OTHER ==
--- NOTE | 2018-12-08 04:16 | ED Physician Documentation ---
PD HPI DYSPNEA - Stated complaint Stated Complaint: DIZZY/CHILLS/SOA - Chief complaint Chief Complaint: Resp - History obtained from History obtained from: Patient, EMS - History of Present Illness Timing - onset: Yesterday Timing - details: Gradual onset, Waxing and waning Pain level now: 0 Improved by: Rest Worsened by: Exertion, Laying flat Associated symptoms: Cough, Chest pain / discomfort, Bilateral edema. No: Fever Similar symptoms before: Diagnosis (CHF, COPD) Recently seen: Admitted (admitted last month to [facility] for similar c/o) - Additional information Additional information: BIBA from home where he lives alone in a trailer. He says he uses 5 liters oxygen. He c/o increasing dyspnea over past 24 hours despite increasingly frequent duoneb treatments at home. He has increasing generalized weakness with exertion. He also has experienced episodic midline and left chest pain over past 3-4 hours. Review of Systems Constitutional: reports: Chills. denies: Fever, Sweats Eyes: reports: Reviewed and negative Ears: reports: Reviewed and negative Nose: reports: Reviewed and negative Throat: reports: Reviewed and negative Cardiac: reports: Chest pain / pressure, Pedal edema. denies: Palpitations Respiratory: reports: Dyspnea, Cough GI: reports: Reviewed and negative : denies: Dysuria, Frequency Skin: reports: Reviewed and negative Musculoskeletal: reports: Reviewed and negative Neurologic: reports: Generalized weakness. 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) - Past Surgical History Past Surgical History: Yes General: Other Cardiovascular: CABG HEENT: Cataracts, Tracheostomy - Present Medications Home Medications: Ambulatory Orders Medication Instructions Recorded Confirmed Tamsulosin [Flomax] 0.4 mg PO DAILY #30 capsule 06/21/18 12/08/18 Amiodarone HCl 200 mg PO DAILY 09/18/18 12/08/18 Fluticasone/Salmeterol [Advair Hfa 2 puffs INH BID 09/18/18 12/08/18 230-21 Mcg Inhaler] SITagliptin [Januvia] 100 mg PO DAILY 09/18/18 12/08/18 Trazodone HCl 100 mg PO QPM PRN 09/18/18 12/08/18 glipiZIDE [Glipizide] 20 mg PO 0730,1630 09/18/18 12/08/18 Metoprolol Succinate [Toprol Xl] 25 mg PO BID #60 tablet 09/21/18 12/08/18 Montelukast [Singulair] 10 mg PO QPM #30 tablet 09/21/18 12/08/18 Insulin Glargine [Lantus Solostar] 16 unit SUBQ BID 11/01/18 12/08/18 Sacubitril/Valsartan [Entresto 24 1 each PO BID #60 tablet 11/02/18 12/08/18 mg-26 mg Tablet] Furosemide 40 mg PO 0800,1200 12/08/18 12/08/18 Ipratropium/Albuterol Sulfate 3 ml INH QID 12/08/18 12/08/18 [Iprat-Albut 0.5-3(2.5) mg/3 ml] Lisinopril [Zestril] 2.5 mg PO BID 12/08/18 12/08/18 Losartan Potassium 50 mg PO DAILY 12/08/18 12/08/18 Magnesium Oxide 800 mg PO DAILY 12/08/18 12/08/18 Mecobal/Levomefolat Ca/B6 Phos 1 tab PO BID 12/08/18 12/08/18 [l-[id number]-B12 Tablet] Spironolactone [Aldactone] 12.5 mg PO BID 12/08/18 12/08/18 Warfarin Sodium 5 mg PO DAILY 12/08/18 12/08/18 - Allergies Allergies/Adverse Reactions: Allergies Allergy/AdvReac Type Severity Reaction Status Date / Time No Known Drug Allergies Allergy Verified 12/08/18 04:14 - Social History Does the pt smoke?: No Smoking Status: Former smoker Does the pt drink ETOH?: No Does the pt have substance abuse?: No - Immunizations Immunizations are current?: Yes - POLST Patient has POLST: No POLST Status: DNR PD ED PE NORMAL - Vitals Vital signs reviewed: Yes - General General: Alert and oriented X 3, Well developed/nourished, Other (frequent cough during H+P) - Neck Neck: Supple, no meningeal sign - Cardiac Cardiac: RRR, No murmur - Respiratory Respiratory: No respiratory distress - Abdomen Abdomen: Soft, Non tender - Derm Derm: Normal color, Warm and dry PD ED PE EXPANDED - Respiratory Respiratory: Rhonchi, Decreased breath sounds, Other (tracheostomy in place) - Extremities Extremities: Pedal edema bilateral (erythematous pre-tibial surfaces bilaterally) Results - Vitals Vitals: Vital Signs - 24 hr 12/08/18 08:22 Temperature 36.7 C Heart Rate 91 Respiratory 27 H Rate Blood Pressure 100/61 O2 Saturation 91 L Oxygen O2 Source [Without Activity] trach O2 Source [With Activity] Mechanical ventilator O2 Source Nasal cannula Oxygen Flow Rate 5 - EKG (time done) No standard instances Rate: Rate (enter#) (82) Rhythm: NSR [place]: LAD Intervals: LBBB QRS: Normal Ischemia: Normal ST segments - Labs Labs: Laboratory Tests 12/08/18 12/08/18 12/08/18 04:20 04:20 04:20 WBC 8.5 RBC 3.91 L Hgb 9.4 L Hct 30.7 L MCV 78.5 L MCH 24.0 L MCHC 30.6 L RDW 18.4 H Plt Count 287 MPV 9.2 Neut # (Auto) 5.7 Lymph # (Auto) 1.5 [place] # (Auto) 0.9 Eos # (Auto) 0.3 Baso # (Auto) 0.1 Absolute Nucleated RBC 0.00 Nucleated RBC % 0.0 PT INR APTT Sodium 141 Potassium 3.9 Chloride 103 Carbon Dioxide 26 Anion Gap 12.0 BUN 38 H Creatinine 1.6 H Estimated GFR (MDRD) 42 L Glucose 193 H Lactic Acid Calcium 8.9 Total Bilirubin 0.2 AST 15 ALT 15 Alkaline Phosphatase 68 Troponin I Troponin I High Sens B-Natriuretic Peptide 138 H Total Protein 7.4 Albumin 3.5 Globulin 3.9 Albumin/Globulin Ratio 0.9 L Lipase 29 Urine Color Urine Clarity Urine pH Ur Specific [place] Urine Protein Urine Glucose (UA) Urine Ketones Urine Occult Blood Urine Nitrite Urine Bilirubin Urine Urobilinogen Ur Leukocyte Esterase Urine RBC Urine WBC Ur Squamous Epith Cells Urine Bacteria Ur Microscopic Review Urine Culture Comments 12/08/18 12/08/18 12/08/18 04:20 04:20 04:20 WBC RBC Hgb Hct MCV MCH MCHC RDW Plt Count MPV Neut # (Auto) Lymph # (Auto) [place] # (Auto) Eos # (Auto) Baso # (Auto) Absolute Nucleated RBC Nucleated RBC % PT 25.5 H INR 2.3 H APTT 35.1 H Sodium Potassium Chloride Carbon Dioxide Anion Gap BUN Creatinine Estimated GFR (MDRD) Glucose Lactic Acid 1.5 Calcium Total Bilirubin AST ALT Alkaline Phosphatase Troponin I < 0.04 Troponin I High Sens 14.3 B-Natriuretic Peptide Total Protein Albumin Globulin Albumin/Globulin Ratio Lipase Urine Color Urine Clarity Urine pH Ur Specific [place] Urine Protein Urine Glucose (UA) Urine Ketones Urine Occult Blood Urine Nitrite Urine Bilirubin Urine Urobilinogen Ur Leukocyte Esterase Urine RBC Urine WBC Ur Squamous Epith Cells Urine Bacteria Ur Microscopic Review Urine Culture Comments 12/08/18 07:15 WBC RBC Hgb Hct MCV MCH MCHC RDW Plt Count MPV Neut # (Auto) Lymph # (Auto) [place] # (Auto) Eos # (Auto) Baso # (Auto) Absolute Nucleated RBC Nucleated RBC % PT INR APTT Sodium Potassium Chloride Carbon Dioxide Anion Gap BUN Creatinine Estimated GFR (MDRD) Glucose Lactic Acid Calcium Total Bilirubin AST ALT Alkaline Phosphatase Troponin I Troponin I High Sens B-Natriuretic Peptide Total Protein Albumin Globulin Albumin/Globulin Ratio Lipase Urine Color YELLOW Urine Clarity CLEAR Urine pH 6.5 Ur Specific [place] 1.010 Urine Protein NEGATIVE Urine Glucose (UA) 100 H Urine Ketones NEGATIVE Urine Occult Blood TRACE-INTA Urine Nitrite NEGATIVE Urine Bilirubin NEGATIVE Urine Urobilinogen 0.2 (NORMAL) Ur Leukocyte Esterase TRACE H Urine RBC 0-5 Urine WBC 4-5 Ur Squamous Epith Cells RARE Squamous Urine Bacteria Rare Ur Microscopic Review INDICATED Urine Culture Comments INDICATED - Rads (name of study) chest xray Radiology: Prelim report reviewed, See rad report PD MEDICAL DECISION MAKING - ED course Complexity details: reviewed old records, reviewed results, re-evaluated patient, considered differential, d/w patient Departure - Departure Disposition: 66 [facility] DC/Xfer Clinical Impression: COPD exacerbation Congestive heart failure Qualifiers: Heart failure type: systolic Heart failure chronicity: acute on chronic Qualified Code(s): I50.23 - Acute on chronic systolic (congestive) heart failure Condition: Stable Discharge Date/Time: 12/08/18 09:49
[2018-12-08 04:29] LABS: BASOPHILS # (AUTO) 0.1 10^3/uL (0.0-0.1); BASOPHILS % (AUTO) 0.9 %; EOSINOPHILS # (AUTO) 0.3 10^3/uL (0.0-0.7); EOSINOPHILS % (AUTO) 3.2 %; HGB - HEMOGLOBIN 9.4 g/dL (14.0-18.0); LYMPHOCYTES # (AUTO) 1.5 10^3/uL (1.5-3.5); MEAN CORPUSCULAR HGB CONC 30.6 g/dL (32.0-36.0); MEAN CORPUSCULAR VOLUME 78.5 fL (80.0-94.0); MEAN PLATELET VOLUME 9.2 fL (7.4-11.4); MONOCYTES # (AUTO) 0.9 10^3/uL (0.0-1.0); MONOCYTES % (AUTO) 10.4 %; NEUTROPHILS # (AUTO) 5.7 10^3/uL (1.5-6.6); NEUTROPHILS % (AUTO) 67.1 %; PLT - PLATELET COUNT 287 10^3/uL (130-450); RED BLOOD COUNT 3.91 10^6/uL (4.70-6.10); RED CELL DISTRIBUTION WIDTH 18.4 % (12.0-15.0); WHITE BLOOD COUNT 8.5 x10^3/uL (4.8-10.8)
[2018-12-08 04:45] LABS: ALBUMIN 3.5 g/dL (3.2-5.5); ALBUMIN/GLOBULIN RATIO 0.9 (1.0-2.2); BILIRUBIN,TOTAL 0.2 mg/dL (0.2-1.0); CALCIUM 8.9 mg/dL (8.5-10.3); CREATININE 1.6 mg/dL (0.6-1.2); INR 2.3 (0.8-1.2); PT - PROTHROMBIN TIME 25.5 secs (9.9-12.6); TOTAL PROTEIN 7.4 g/dL (6.7-8.2)
--- NOTE | 2018-12-08 04:49 | XRAY Report ---
Reason: dyspnea, chest pain Procedure Date: 12/08/2018 Accession Number: [id number] / [id number] Procedure: XR - Chest 1 View X-Ray CPT Code: 14199 FULL RESULT: EXAM: CHEST RADIOGRAPHY EXAM DATE: 12/08/2018 04:16 AM. CLINICAL HISTORY: Dyspnea, chest pain. COMPARISON: CHEST 1 VIEW 10/31/2018 8:18 PM. TECHNIQUE: 1 view. FINDINGS: Lungs/Pleura: Trace left effusion and minimal basilar atelectasis. No pneumothorax. Mediastinum: Cardiomegaly. Stable left subclavian pacemaker. Other: Stable tracheostomy. IMPRESSION: Trace left effusion and minimal basilar atelectasis. RADIA
[2018-12-08 04:52] LABS: PARTIAL THROMBOPLASTIN TIME 35.1 secs (24.9-33.3)
[2018-12-08 05:19] LABS: TROPONIN I < 0.04 ng/mL (<0.49)
[2018-12-08] MEDS ORDERED: IPRATROPIUM/ALBUTEROL 3 ML NEB INH STA (05:21)
[2018-12-08] MEDS ORDERED: ALBUTEROL NEB 2.5 MG/3 ML INH STA (07:11)
[2018-12-08] MEDS ORDERED: methylPREDNISolone SUCCINATE 125 MG/2 ML VIAL IVP STA (07:11)
[2018-12-08] MEDS ORDERED: FUROSEMIDE 40 MG/4 ML VIAL IVP STA (07:11)
[2018-12-08] MEDS ORDERED: LEVALBUTEROL 1.25 MG/3 ML NEB INH STA (07:11)
[2018-12-08 08:33] LABS: BILIRUBIN,URINE NEGATIVE (NEGATIVE); GLUCOSE, URINE (UA) 100 mg/dL (NEGATIVE); KETONES,URINE (UA) NEGATIVE (NEGATIVE); LEUKOCYTE ESTERASE, URINE TRACE (NEGATIVE); NITRITE,URINE NEGATIVE (NEGATIVE); OCCULT BLOOD,URINE TRACE-INTA (NEGATIVE); PH,URINE 6.5 PH (5.0-7.5); PROTEIN,URINE NEGATIVE (NEGATIVE); UROBILINOGEN,URINE 0.2 (NORMAL) E.U./dL (NORMAL)
[2018-12-08 08:34] LABS: CLARITY,URINE CLEAR (CLEAR)
[2018-12-08 08:37] LABS: BACTERIA,URINE Rare /HPF (None Seen); RBC,URINE 0-5 /HPF (0-5); SQUAMOUS EPITHELIAL CELL,UR RARE Squamous (<= Few)
[2018-12-08] MEDS ORDERED: PROCHLORPERAZINE 10 MG/2 ML VIAL IVP PRN (11:01)
[2018-12-08] MEDS ORDERED: ACETAMINOPHEN 325 MG TABLET PO PRN (11:01)
[2018-12-08] MEDS ORDERED: MORPHINE 2 MG/ML CARPUJECT IVP PRN (11:01)
[2018-12-08] MEDS ORDERED: traZODone 50 MG TABLET PO PRN (11:04)
[2018-12-08] MEDS: INSULIN GLARGINE 300 UNIT/3 ML PEN SUBQ SCH ×2 (11:33→20:41)
--- NOTE | 2018-12-08 12:06 | HISTORY & PHYSICAL EXAMINATION ---
Chief Complaint - Chief Complaint Chief Complaint: Dyspnea, Weakness, Dizziness <Sameer Robledo - Last Filed: 12/08/18 17:53> History of Present Illness - Admitted From Admitted From:: Home, brought to ED by ambulance - History Obtained From History obtained from: Patient <Sameer Robledo - Last Filed: 12/08/18 17:53> - History of Present Illness HPI Comment/Other: Mr. 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 Around midnight last night the patient acutely became SOB, dizzy and felt exceptionally weak. He reports a thick, rubbery, ulloa colored mucus expectoration which is increased, and thicker from baseline mucus. He called for an ambulance to bring him into the ED. Since arrival to the hospital, he reports 3 episodes and an intermittent "sharp twinge" in his chest that self resolve, this pain does not f luctuate with respirations. Other pain present on admission is chronic left hip and leg pain. He was recently hospitalized for an ESBL Klebsiella PNA, and a stay at [facility] from April 2018-July 2018. His current baseline since that stay is 5L O2 via NC (that slowly titrated up from a prescribed 2L), able to walk about 1 block before rest. He has orthopnea that prevents him from laying flat, and sleeps sitting up in a recliner. He reports exchanging his trach tube about every 3 weeks, and rotates between about 6 tubes he has that he sterilizes in peroxide at home. He does not remember the last time he's changed it, but its been over 3 weeks. (Sameer Robledo) History - Past Medical History Cardiovascular: reports: Congestive heart failure, Coronary artery disease Respiratory: reports: COPD, Pneumonia (Hx ESBL Klebsiella PNA), Shortness of breath Neuro: reports: None Endocrine/Autoimmune: reports: Type 2 diabetes GI: reports: GERD, Chronic constipation, Other (occassional diarrhea) : reports: None, Retention, Nocturia, Frequency HEENT: reports: Chronic vision loss, Other (cataracts ) Psych: reports: None Musculoskeletal: reports: Osteoarthritis Derm: reports: None, Other drug resistant infections, Other MRSA Hx?: No - Past Surgical History General: reports: Other Cardiovascular: reports: CABG HEENT: reports: Cataracts, Tracheostomy - Family & Social History Family History Comment/Other: Patient was adopted and his children are healthy Living arrangement: At home (lives alone in a trailer ) Living Situation: Alone Social History Notes: Patient states that he lives alone in [place]. He has 2 children 1 of whom lives in the area and the other one lives in [place]. The patient is , he states his in 2000 and currently he is alone and takes care of himself. He states he is able to care for his own trach and does not have any caregivers or but does have somebody help in cleaning the home. The patient states that he smokes 1-1-1/2 packs of cigarettes a day and has been smoking for over 50 years. He denies any alcohol or drug use. Update: 12/08: Patient reports his children are trying to move him to a SNF, he thinks he needs more help and is afraid to perform some ADLs like bathing due to fear of falling. Since admission in Apr, he has smoked 2-3 cigarettes/day. - Substance History Use: Uses substance without health or social issues: Tobacco (2-3 cigarrettes/day, previously 1.5ppd x 60years) Abuse: Recurrent use of substance despite neg consequences: NONE Dependence: Experiences withdrawal or developed tolerances: NONE (denies need for nicotine patch ) Tobacco Details: Cigarettes - POLST Patient has POLST: No POLST Status: DNR <Sameer Robledo - Last Filed: 12/08/18 17:53> Meds/Allgy <Sameer Robledo - Last Filed: 12/08/18 17:53> <Jenni Araujo - Last Filed: 12/12/18 09:00> - Home Medications Home Medications: Ambulatory Orders Medication Instructions Recorded Confirmed RX: Tamsulosin [Flomax] 0.4 mg PO DAILY #30 capsule 06/21/18 12/08/18 RX: Amiodarone HCl 200 mg PO DAILY 09/18/18 12/08/18 RX: Fluticasone/Salmeterol [Advair 2 puffs INH BID 09/18/18 12/08/18 Hfa 230-21 Mcg Inhaler] RX: SITagliptin [Januvia] 100 mg PO DAILY 09/18/18 12/08/18 RX: Trazodone HCl 100 mg PO QPM PRN 09/18/18 12/08/18 RX: glipiZIDE [Glipizide] 20 mg PO 0730,1630 09/18/18 12/08/18 RX: Metoprolol Succinate [Toprol 25 mg PO BID #60 tablet 09/21/18 12/08/18 Xl] RX: Montelukast [Singulair] 10 mg PO QPM #30 tablet 09/21/18 12/08/18 RX: Insulin Glargine [Lantus 16 unit SUBQ BID 11/01/18 12/08/18 Solostar] RX: Sacubitril/Valsartan [Entresto 1 each PO BID #60 tablet 11/02/18 12/08/18 24 mg-26 mg Tablet] RX: Furosemide 40 mg PO 0800,1200 12/08/18 12/08/18 RX: Ipratropium/Albuterol Sulfate 3 ml INH QID 12/08/18 12/08/18 [Iprat-Albut 0.5-3(2.5) mg/3 ml] RX: Lisinopril [Zestril] 2.5 mg PO BID 12/08/18 12/08/18 RX: Losartan Potassium 50 mg PO DAILY 12/08/18 12/08/18 RX: Magnesium Oxide 800 mg PO DAILY 12/08/18 12/08/18 RX: Mecobal/Levomefolat Ca/B6 Phos 1 tab PO BID 12/08/18 12/08/18 [[id number] Tablet] RX: Spironolactone [Aldactone] 12.5 mg PO BID 12/08/18 12/08/18 RX: Warfarin Sodium 5 mg PO DAILY 12/08/18 12/08/18 RX: predniSONE [Deltasone] 40 mg PO DAILYWM #4 tablet 12/10/18 - Allergies Allergies/Adverse Reactions: Allergies Allergy/AdvReac Type Severity Reaction Status Date / Time No Known Drug Allergies Allergy Verified 12/11/18 16:29 Review of Systems - Constitutional Constitutional: reports: Fatigue, Fever, Chills, Weakness - Eyes Eyes: reports: Vision loss, Corrective lenses - Ears, Nose & Throat Ears, Nose & Throat: reports: Other (dentures, no issues) - Cardiovascular Cariovascular: reports: Chest pain, Exertional dyspnea, Decr. exercise tolerance - Respiratory Respiratory: reports: Cough, Sputum production, Orthopnea, SOB at rest, SOB with exertion - Gastrointestinal Gastrointestinal: reports: Constipation (chronic constipation, can go up to a week with no BM. Recently had diarrhea 2days ago.), Diarrhea - Genitourinary Genitourinary: reports: Frequency, Nocturia - Musculoskeletal Musculoskeletal: reports: Muscle pain, Muscle weakness - Neurological Neurological: reports: General weakness, Dizziness, Numbness (numbness bilat feet) - All Other Systems All Other Systems: reports: Reviewed and negative <Sameer Robledo - Last Filed: 12/08/18 17:53> <Sameer Robledo - Last Filed: 12/08/18 17:53> Prior Level of Functionality: After discharging from [facility], has been able to walk about 1 block with 4WW. Is independent with ADLs, however has become fearful lately to bathe independently for fear of falls. (Sameer Robledo) Exam - Vital Signs Reviewed Vital Signs: Yes - Physical Exam General Appearance: positive: Alert (Appears stated age. Is emotional and becomes tearful throughout interview.) Eyes Bilateral: positive: Normal inspection, PERRL, No lid inflammation, Conjunctivae nml ENT: positive: Dry mucous membranes Neck: positive: Other (Trach in place) Respiratory: positive: Chest non-tender, Wheezes (AMIE expiratory wheeze), Rhonchi (bilat upper lobes), Other (Diminished to bases) Cardiovascular: positive: Regular rate & rhythm, Gallop/S3. negative: JVD present Peripheral Pulses: positive: 1+ Abdomen: positive: Non-tender, Nml bowel sounds, No distention Back: positive: Nml inspection. negative: CVA tenderness (R), CVA tenderness (L) Skin: positive: Warm, Dry, Other (Dry, flaky skin to bilat LEs, pink and warm to touch. Thick, crusty lesions to bilat shins) Extremities: positive: Non-tender, No pedal edema, Other (edema to ankles, 1+) Neurologic/Psychiatric: positive: Oriented x3, CN's nml (2-12), Weakness, Sensor y loss (numbness to bilat feet), Other (tearful, but calm and cooperative. appropriate for situation). negative: Sensation nml <Sameer Robledo - Last Filed: 12/08/18 17:53> - Vital Signs Vital Signs: Vital Signs x48h Temp Pulse Pulse Resp BP BP Pulse Ox 12/08/18 10:04 36.4 C L 69 18 120/85 H 99 12/08/18 09:30 88 18 153/83 H 98 12/08/18 08:22 36.7 C 91 27 H 100/61 91 L 12/08/18 07:23 68 22 12/08/18 06:30 73 16 111/54 L 99 12/08/18 06:00 81 19 98 12/08/18 05:42 74 18 12/08/18 05:30 75 23 143/78 H 95 12/08/18 05:15 71 21 132/55 H 99 12/08/18 04:56 74 17 141/49 H 100 12/08/18 04:13 82 19 128/64 98 12/08/18 04:02 37.2 C 83 22 128/64 98 Conclusion/Plan - Problem List (1) COPD exacerbation Conclusion/Plan: Acute on chronic COPD exacerbation with SOB at rest and on exertion. Rhonchi throughout and expiratory wheeze to RUL. Plan: -Nebs -Initiate IV steroids, solumedrol 40mg TID -In setting of recent hx of ESBL pneumonia, and with increase in rubbery mucus, will obtain a sputum culture (2) Congestive heart failure Conclusion/Plan: Acute on chronic CHFrEF. Last echo done on 11/01/18 showing EF of 20-25%, cor pulmonale, mild aortic stenosis and regurg, and mild-mod mitral regurg. This is a decline from 03/2018 where EF was 40-45%. Lungs are diminished to bases, with rhonchi throughout with productive/wet cough. Plan: -Continue home HF meds -Initiate IV lasix 40mg BID -Daily weight -Low Na diet <2g Qualifiers: Heart failure type: systolic Heart failure chronicity: acute on chronic Qualified Code(s): I50.23 - Acute on chronic systolic (congestive) heart failure (3) RUSLAN (acute kidney injury) Conclusion/Plan: Cardio-renal syndrome in the setting of acute on chronic CHF. BUN 38, Crea 1.6, baseline Cr ~1.0. Plan: -As per above for COPD/CHF -Continue to monitor (4) Chest pain due to CAD Conclusion/Plan: Atypical chest pain, does not sound like angina. He describes 3 episodes of short lived, self resolving "sharp twinges" in his L chest. Troponin negative in the ED. 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 He appears to have some venous insufficiency as well. Plan: -Accu checks AC/HS -Continue home oral glycemic agents, sitagliptin and glypizide -Insulin NPH 16u BID Qualifiers: Diabetes mellitus termite treater helper insulin use: with longterm use Diabetes mellitus complication status: with ophthalmic complications Diabetes mellitus complication detail: with cataract Qualified Code(s): E11.36 - Type 2 diabetes mellitus with diabetic cataract; Z79.4 - termite treater (current) use of insulin (6) Generalized weakness Conclusion/Plan: Acute onset generalized weakness in setting of a/c COPD and CHF exacerbations which are being treated per plan above. He ambulated with a 4WW at baseline and has a max capacity of walking about 1 block. Plan: -Will initiate a PT consult tomorrow (7) Anemia Conclusion/Plan: Chronic hypochromic/microcytic anemia. Iron, FIBC and ferritin studies drawn in September revealing an iron deficiency. Folate and B12 WNL at this time as well. Plan: -Will obtain a stool guaiac to rule out GIB -Initiate PO ferrous gluconate Qualifiers: Anemia type: iron deficiency Iron deficiency anemia type: unspecified iron deficiency Qualified Code(s): D50.9 - Iron deficiency anemia, unspecified (8) Atrial fibrillation Conclusion/Plan: Chronic Afib for which he is anticoagulated with warfarin. On admit PT/INR in therapeutic range 25.5/2.3 respectively. EKG on admit shows NSR with LBBB. Plan: -Continue outpatient anticoagultion regimen -Monitor daily PT/INRs -Obtain orthostatic VS due to dizziness Qualifiers: Atrial fibrillation type: unspecified Qualified Code(s): I48.91 - Unspecified atrial fibrillation - Lab Results Fish Bones: 12/08/18 04:20 12/08/18 04:20 - EKG Results EKG Interpreted Independently: Yes EKG Comparison: Unchanged from prior EKG <Sameer Robledo - Last Filed: 12/08/18 17:53> - Problem List (2) Congestive heart failure Qualifiers: Heart failure type: systolic Heart failure chronicity: acute on chronic Qualified Code(s): I50.23 - Acute on chronic systolic (congestive) heart failure - Lab Results Fish Bones: 12/10/18 05:21 12/10/18 05:21 <Jenni Araujo - Last Filed: 12/12/18 09:00> - Lab Results Other Lab Results: Laboratory Tests 12/08/18 12/08/18 12/08/18 04:20 04:20 04:20 WBC 8.5 RBC 3.91 L Hgb 9.4 L Hct 30.7 L MCV 78.5 L MCH 24.0 L MCHC 30.6 L RDW 18.4 H Plt Count 287 MPV 9.2 Neut # (Auto) 5.7 Lymph # (Auto) 1.5 [place] # (Auto) 0.9 Eos # (Auto) 0.3 Baso # (Auto) 0.1 Absolute Nucleated RBC 0.00 Nucleated RBC % 0.0 PT INR APTT Sodium 141 Potassium 3.9 Chloride 103 Carbon Dioxide 26 Anion Gap 12.0 BUN 38 H Creatinine 1.6 H Estimated GFR (MDRD) 42 L Glucose 193 H Lactic Acid Calcium 8.9 Total Bilirubin 0.2 AST 15 ALT 15 Alkaline Phosphatase 68 Troponin I Troponin I High Sens B-Natriuretic Peptide 138 H Total Protein 7.4 Albumin 3.5 Globulin 3.9 Albumin/Globulin Ratio 0.9 L Lipase 29 Urine Color Urine Clarity Urine pH Ur Specific [place] Urine Protein Urine Glucose (UA) Urine Ketones Urine Occult Blood Urine Nitrite Urine Bilirubin Urine Urobilinogen Ur Leukocyte Esterase Urine RBC Urine WBC Ur Squamous Epith Cells Urine Bacteria Ur Microscopic Review Urine Culture Comments 12/08/18 12/08/18 12/08/18 04:20 04:20 04:20 WBC RBC Hgb Hct MCV MCH MCHC RDW Plt Count MPV Neut # (Auto) Lymph # (Auto) [place] # (Auto) Eos # (Auto) Baso # (Auto) Absolute Nucleated RBC Nucleated RBC % PT 25.5 H INR 2.3 H APTT 35.1 H Sodium Potassium Chloride Carbon Dioxide Anion Gap BUN Creatinine Estimated GFR (MDRD) Glucose Lactic Acid 1.5 Calcium Total Bilirubin AST ALT Alkaline Phosphatase Troponin I < 0.04 Troponin I High Sens 14.3 B-Natriuretic Peptide Total Protein Albumin Globulin Albumin/Globulin Ratio Lipase Urine Color Urine Clarity Urine pH Ur Specific [place] Urine Protein Urine Glucose (UA) Urine Ketones Urine Occult Blood Urine Nitrite Urine Bilirubin Urine Urobilinogen Ur Leukocyte Esterase Urine RBC Urine WBC Ur Squamous Epith Cells Urine Bacteria Ur Microscopic Review Urine Culture Comments 12/08/18 07:15 WBC RBC Hgb Hct MCV MCH MCHC RDW Plt Count MPV Neut # (Auto) Lymph # (Auto) [place] # (Auto) Eos # (Auto) Baso # (Auto) Absolute Nucleated RBC Nucleated RBC % PT INR APTT Sodium Potassium Chloride Carbon Dioxide Anion Gap BUN Creatinine Estimated GFR (MDRD) Glucose Lactic Acid Calcium Total Bilirubin AST ALT Alkaline Phosphatase Troponin I Troponin I High Sens B-Natriuretic Peptide Total Protein Albumin Globulin Albumin/Globulin Ratio Lipase Urine Color YELLOW Urine Clarity CLEAR Urine pH 6.5 Ur Specific [place] 1.010 Urine Protein NEGATIVE Urine Glucose (UA) 100 H Urine Ketones NEGATIVE Urine Occult Blood TRACE-INTA Urine Nitrite NEGATIVE Urine Bilirubin NEGATIVE Urine Urobilinogen 0.2 (NORMAL) Ur Leukocyte Esterase TRACE H Urine RBC 0-5 Urine WBC 4-5 Ur Squamous Epith Cells RARE Squamous Urine Bacteria Rare Ur Microscopic Review INDICATED Urine Culture Comments INDICATED (Sameer Robledo) - EKG Results EKG Findings: Sinus rhythm with a LBBB. Prolonged QTc at 500. (Sameer Robledo) - Other Other Results/Comments: SEE SEPARATE H&P DONE BY HOSPITALIST ON SAME DAY. (Jenni Araujo) Core Measures - Anticipated LOS I expect patient to be DC'd or transferred within 96 hours.: Yes - DVT/VTE - Prophylaxis VTE/DVT Device ordered at admit?: Yes VTE/DVT Prophylaxis med ordered at admit?: No Not Ordered - Medical Reason: Contraindicated <Sameer Robledo - Last Filed: 12/08/18 17:53>
[2018-12-08] MEDS ORDERED: ALBUTEROL NEB 2.5 MG/3 ML INH PRN (13:01)
[2018-12-08] MEDS: methylPREDNISolone SUCCINATE 40 MG/ML VIAL IVP SCH ×2 (13:36→21:48)
[2018-12-08] MEDS: FUROSEMIDE 40 MG/4 ML VIAL IVP SCH (13:36)
[2018-12-08] MEDS: SODIUM CHLORIDE FLUSH 0.9% 10 ML SYRINGE IVP PRN ×2 (13:37→21:48)
[2018-12-08] MEDS: SODIUM CHLORIDE FLUSH 0.9% 10 ML SYRINGE IVP SCH ×3 (13:37→23:41)
[2018-12-08] MEDS ORDERED: ALBUTEROL NEB 2.5 MG/3 ML INH SCH (17:00)
--- NOTE | 2018-12-08 18:52 | ADVANCE CARE PLANNING NOTE ---
Advance Care Planning - Planning Encounter Date: 12/08/18 Time: 13:00 Purpose: To establish his CODE BLUE wishes Parties in Attendance: I spoke to the patient, sitting in her recliner chair in his room Decisional Capacity of the Patient: Patient has full alertness and is able to make his own decisions - Diagnosis for Encounter (1) COPD exacerbation Summary: Patient has chronic COPD, is on home O2, is an ex-smoker (2) Congestive heart failure Qualifiers: Heart failure type: systolic Heart failure chronicity: acute on chronic Qualified Code(s): I50.23 - Acute on chronic systolic (congestive) heart failure Summary: He has an LVEF of 30%. - Encounter Subjective/Patient's Story: Patient is a , lost his 1 year ago and gets tearful when describing this. He presented with shortness of breath that occurred suddenly at midnight and 2 days of cough. He is being treated for COPD exacerbation and CHF exacerbation. Objective/Medical Story: This is a 73-year-old white male with ex-smoker, COPD on home oxygen, laryngeal cancer with a trach, CHF with EF of 30%, history of bypass surgery, DM on insulin. He presented with acute onset of orthopnea and 2 days of cough. He is being treated for COPD exacerbation, probable bronchitis and Sieg HF exacerbation, possibly exacerbated by the bronchitis Goals of Care: Patient agrees to the current care that was spelled out. He has had this type of exacerbation before. He thinks he signed a pulsed form to be a DNR but there is nothing in our record. Patient wants to be a DNR/DNI. Plan: POLST form completed with patient to be DNR and selective treatment. Code Status: Do Not Attempt Resuscitation Time spent on advance care plannin min
[2018-12-08] MEDS: ALBUTEROL NEB 2.5 MG/3 ML INH SCH (19:30)
[2018-12-08 20:28] LABS: HB2 TOTAL 11.1 g/dL; HEMOGLOBIN A1C 0.68 g/dL; HEMOGLOBIN A1C % 7.8 % (4.6-6.2)
[2018-12-08] MEDS: SPIRONOLACTONE 25 MG TABLET PO SCH (20:40)
[2018-12-08] MEDS: FAMOTIDINE 20 MG TABLET PO SCH (20:41)
[2018-12-08] MEDS: MONTELUKAST 10 MG TABLET PO SCH (20:41)
[2018-12-08] MEDS: guaiFENesin 600 MG TABLET PO SCH (20:41)
[2018-12-08] MEDS: METOPROLOL SUCCINATE 25 MG TABLET PO SCH (20:41)
[2018-12-08] MEDS: B6 PHOS PO SCH (20:43)
[2018-12-08] MEDS: VALSARTAN PO SCH (20:43)
[2018-12-08] MEDS: LEVOMEFOLAT CA PO SCH (20:43)
[2018-12-08] MEDS: MECOBAL PO SCH (20:43)
[2018-12-08] MEDS: SACUBITRIL PO SCH (20:43)
[2018-12-08] MEDS: INSULIN ASPART 300 UNIT/3 ML PEN SUBQ SCH (20:53)
--- NOTE | 2018-12-08 21:05 | HISTORY & PHYSICAL EXAMINATION ---
DATE OF SERVICE: 12/08/2018 Physician: Jenni Araujo MD HISTORY OF PRESENT ILLNESS: This is a 73-year-old white male with a history of a permanent trach after laryngeal cancer, COPD, CHF with systolic failure, history of coronary artery disease, status post CABG, diabetes, arthritis. The patient was here several months ago and required [facility] was for several months. Since he has been home, approximately one month, he has been stable until developing sudden shortness of breath at midnight, which he describes orthopnea, there has also been a cough of probably two days, which he describes as thick and is difficult to expectorate. There has been no fever. He denies any chest pain. He denies palpitations. He denies edema. He has been able to take all his medications. He lives alone, is a . PAST MEDICAL HISTORY 1. CHF with systolic heart failure. 2. CAD with CABG and valve replacement. 3. COPD on home oxygen. 4. Laryngeal cancer with a permanent tracheostomy. 5. History of pneumonia that was ESBL. 6. Type 2 diabetes. 7. GERD. 8. Cataracts. 9. DJD. 10. Paroxysmal atrial fibrillation, he is on Coumadin. FAMILY HISTORY: No inherited diseases. ALLERGIES: NONE. MEDICATIONS 1. Warfarin 5 mg daily. 2. Magnesium 800 mg daily. 3. Losartan 50 mg daily. 4. Zestril 2.5 mg b.i.d. 5. Multivitamin with B6 and B12 daily. 6. Lasix 40 mg b.i.d. 7. Januvia 100 mg daily. 8. Glipizide 20 mg b.i.d. 9. Ipratropium/albuterol inhaler q.i.d. 10. Entresto 24/26 mg b.i.d. 11. Toprol-XL 25 mg b.i.d. 12. Singulair 10 mg every night. 13. Flomax 0.4 mg daily. 14. Spironolactone 12.5 mg b.i.d. 15. Trazodone 100 mg p.r.n. at bedtime. 16. Lantus insulin 16 units b.i.d. 17. Advair inhaler 2 puffs b.i.d. 18. Amiodarone 200 mg b.i.d. SOCIAL HISTORY: He is a nonsmoker, quit many years ago. There is a history of no alcohol use or drug use. Patient is a of approximately one year, lives in a trailer. He wants a DNR status. REVIEW OF SYSTEMS: A comprehensive review of systems was performed and the pertinent positives are listed, the rest are negative. PHYSICAL EXAMINATION GENERAL: Elderly white male. He is in mild respiratory distress and has a wet, but nonproductive cough. He closes his trach opening to speak and has a high pitched voice. VITAL SIGNS: Blood pressure 129/56, heart rate 60-70 in sinus rhythm. He is on a Ventimask via trach collar of 5 liters with 99% saturation. HEENT: Reveals moist oral mucosa. NECK: With the trach opening and the skin around it looks clean and no purulence. CHEST: Has scattered wheezes and diminished breath sounds and prolonged expiratory phase, plus diminished breath sounds at both bases. HEART: Distant heart sounds, no murmur. ABDOMEN: Soft, nontender. No organomegaly. EXTREMITIES: No clubbing, cyanosis or edema. NEUROLOGIC: Grossly intact. LABORATORY: Normal electrolytes. BUN 38, creatinine 1.6. Troponin less than 0.04. BNP 138. White blood count 9.5, hemoglobin 9.4 with MCV 78, RDW 18, platelet count normal at 287. INR 2.3. Urinalysis had trace leukocyte esterase and high glucose and rare bacteria, and a culture was indicated. CHEST X-RAY: Trace left effusion, minimal basilar atelectasis. EKG: Sinus rhythm, left bundle branch block, which is old. IMPRESSION/DIAGNOSES 1. Congestive heart failure exacerbation (acute on chronic systolic heart failure). 2. Chronic obstructive pulmonary disease exacerbation. 3. Jwmen-[id number] kidney injury. 4. History of coronary artery disease. 5. Insulin-dependent diabetes. 6. Weakness. 7. Hypochromic microcytic anemia with known iron deficiency. 8. History of atrial fibrillation, currently in sinus rhythm, for this he is anticoagulated and therapeutic on warfarin. PLAN 1. Admit the patient to medical/surgical bed on telemetry. 2. Continue with his cardiac and diabetic medications. 3. Instead of oral Lasix, we will start IV b.i.d. diuretic. 4. Follow I's and O's, daily weights, BMP and magnesium daily. Follow BNP daily and cycle troponins x3 to rule out an acute cardiac event as the cause of the CHF exacerbation. The patient just had an echo two months ago. Therefore, this will not be reordered. 5. Begin nebulizers q.i.d. and p.r.n. q.4 hours and high dose steroids for his COPD exacerbation and supplemental oxygen as needed. 6. Continue with a carb-controlled diet, fingerstick glucose checks, his oral agents can be continued ,as well as insulin and add a sliding scale. 7. Obtain a sputum culture and begin treatment if it appears abnormal for possible bronchitis, which could be the reason for the COPD exacerbation. Recheck his CXR. CODE STATUS: DNR. DEEP VENOUS THROMBOSIS PROPHYLAXIS: Therapeutic on his Coumadin. ATTESTATION: The patient is expected to be discharged or transferred to another facility within 96 hours: Yes. TD: 12/08/2018 18:31 HUSSEIN
[2018-12-09 05:26] LABS: BASOPHILS % (AUTO) 0.2 %; HGB - HEMOGLOBIN 9.5 g/dL (14.0-18.0); LYMPHOCYTES # (AUTO) 0.7 10^3/uL (1.5-3.5); LYMPHOCYTES % (AUTO) 8.4 %; MEAN CORPUSCULAR HEMOGLOBIN 23.9 pg (27.0-31.0); MEAN CORPUSCULAR HGB CONC 30.6 g/dL (32.0-36.0); MEAN CORPUSCULAR VOLUME 77.9 fL (80.0-94.0); MEAN PLATELET VOLUME 9.2 fL (7.4-11.4); MONOCYTES # (AUTO) 0.5 10^3/uL (0.0-1.0); NEUTROPHILS # (AUTO) 7.3 10^3/uL (1.5-6.6); NEUTROPHILS % (AUTO) 84.8 %; PLT - PLATELET COUNT 311 10^3/uL (130-450); RED BLOOD COUNT 3.98 10^6/uL (4.70-6.10); RED CELL DISTRIBUTION WIDTH 18.2 % (12.0-15.0); WHITE BLOOD COUNT 8.6 x10^3/uL (4.8-10.8)
[2018-12-09 05:38] LABS: CALCIUM 9.1 mg/dL (8.5-10.3); CREATININE 1.5 mg/dL (0.6-1.2); MAGNESIUM 1.5 mg/dL (1.7-2.8)
[2018-12-09] MEDS: FUROSEMIDE 40 MG/4 ML VIAL IVP SCH (05:53)
[2018-12-09] MEDS: methylPREDNISolone SUCCINATE 40 MG/ML VIAL IVP SCH (05:53)
[2018-12-09] MEDS: SODIUM CHLORIDE FLUSH 0.9% 10 ML SYRINGE IVP PRN ×2 (05:54→09:58)
[2018-12-09] MEDS: ALBUTEROL NEB 2.5 MG/3 ML INH SCH ×4 (06:19→19:14)
[2018-12-09] MEDS: glipiZIDE 5 MG TABLET PO SCH ×2 (07:26→16:46)
[2018-12-09] MEDS: FERROUS GLUCONATE 324 MG TABLET PO SCH (07:55)
[2018-12-09] MEDS: INSULIN ASPART 300 UNIT/3 ML PEN SUBQ SCH ×4 (07:55→22:00)
[2018-12-09] MEDS: MAGNESIUM OXIDE 400 MG TABLET PO SCH (09:55)
[2018-12-09] MEDS: FAMOTIDINE 20 MG TABLET PO SCH ×2 (09:55→21:52)
[2018-12-09] MEDS: SPIRONOLACTONE 25 MG TABLET PO SCH ×2 (09:55→21:55)
[2018-12-09] MEDS: METOPROLOL SUCCINATE 25 MG TABLET PO SCH ×2 (09:55→21:54)
[2018-12-09] MEDS: TAMSULOSIN 0.4 MG CAPSULE PO SCH (09:56)
[2018-12-09] MEDS: WARFARIN 5 MG TABLET PO SCH (09:56)
[2018-12-09] MEDS: LOSARTAN 50 MG TABLET PO SCH (09:56)
[2018-12-09] MEDS: guaiFENesin 600 MG TABLET PO SCH ×2 (09:56→21:53)
[2018-12-09] MEDS: AMIODARONE 200 MG TABLET PO SCH (09:56)
[2018-12-09] MEDS: MECOBAL PO SCH ×2 (09:57→22:04)
[2018-12-09] MEDS: B6 PHOS PO SCH ×2 (09:57→22:04)
[2018-12-09] MEDS: VALSARTAN PO SCH ×2 (09:57→22:05)
[2018-12-09] MEDS: POLYETHYLENE GLYCOL 3350 17 GM PACKET PO SCH (09:57)
[2018-12-09] MEDS: LEVOMEFOLAT CA PO SCH ×2 (09:57→22:04)
[2018-12-09] MEDS: INSULIN GLARGINE 300 UNIT/3 ML PEN SUBQ SCH ×2 (09:57→21:56)
[2018-12-09] MEDS: SACUBITRIL PO SCH ×2 (09:57→22:05)
[2018-12-09] MEDS: SODIUM CHLORIDE FLUSH 0.9% 10 ML SYRINGE IVP SCH ×2 (09:58→16:56)
--- NOTE | 2018-12-09 10:36 | PROVIDER PROGRESS NOTE ---
<Sameer Robledo - Last Filed: 12/09/18 17:36> Subjective - Prog Note Date Prog Note Date: 12/09/18 Prog Note Time: 10:33 - Subjective Pt reports feeling: Improved (Mr. Cast is seen sitting up in recliner chair eating breakfast. He reports that his O2 was turned down to 3L via NC about 0500 this am, which he is tolerating well without any dyspnea or respiratory distress of any kind. He feels well rested. Still reports feeling very weak, fatigues easily, and is worried about DC'ing home to his trailer without any help. He is fearful of falling, or not being able to perform ADLs due to his decline in functional status.) Current Medications - Current Medications Current Medications: Allergies No Known Drug Allergies Allergy (Verified 12/08/18 04:14) Home Medications Amiodarone HCl 200 mg PO DAILY 09/18/18 [History Confirmed 12/08/18] Fluticasone/Salmeterol [Advair Hfa 230-21 Mcg Inhaler] 2 puffs INH BID 09/18/18 [History Confirmed 12/08/18] SITagliptin [Januvia] 100 mg PO DAILY 09/18/18 [History Confirmed 12/08/18] Trazodone HCl 100 mg PO QPM PRN 09/18/18 [History Confirmed 12/08/18] glipiZIDE [Glipizide] 20 mg PO 0730,1630 09/18/18 [History Confirmed 12/08/18] Insulin Glargine [Lantus Solostar] 16 unit SUBQ BID 11/01/18 [History Confirmed 12/08/18] Furosemide 40 mg PO 0800,1200 12/08/18 [History Confirmed 12/08/18] Ipratropium/Albuterol Sulfate [Iprat-Albut 0.5-3(2.5) mg/3 ml] 3 ml INH QID 12/08/18 [History Confirmed 12/08/18] Lisinopril [Zestril] 2.5 mg PO BID 12/08/18 [History Confirmed 12/08/18] Losartan Potassium 50 mg PO DAILY 12/08/18 [History Confirmed 12/08/18] Magnesium Oxide 800 mg PO DAILY 12/08/18 [History Confirmed 12/08/18] Mecobal/Levomefolat Ca/B6 Phos [[id number] Tablet] 1 tab PO BID 12/08/18 [History Confirmed 12/08/18] Spironolactone [Aldactone] 12.5 mg PO BID 12/08/18 [History Confirmed 12/08/18] Warfarin Sodium 5 mg PO DAILY 12/08/18 [History Confirmed 12/08/18] Active Medications Generic Name Dose Route Start Last Admin Trade Name Freq PRN Reason Stop Dose Admin Acetaminophen 650 mg 12/08/18 11:01 Tylenol PO Q4HR PRN Pain or Fever > 38C (100.4F) Albuterol 2.5 mg 12/08/18 13:01 INH RTQ4H PRN Wheezing Albuterol 2.5 mg 12/08/18 19:00 12/09/18 06:19 INH 2.5 mg RTQID RONA Administration Amiodarone HCl 200 mg 12/09/18 09:00 12/09/18 09:56 Pacerone PO 200 mg DAILY RONA Administration Famotidine 20 mg 12/08/18 21:00 12/09/18 09:55 Pepcid PO 20 mg BID RONA Administration Ferrous Gluconate 324 mg 12/09/18 08:00 12/09/18 07:55 Fergon PO 324 mg DAILYWM RONA Administration Furosemide 40 mg 12/08/18 14:00 12/09/18 05:53 Lasix Inj 40 Mg Vial IVP 40 mg BIDDIURETIC RONA Administration Glipizide 20 mg 12/09/18 07:30 12/09/18 07:26 Glucotrol PO 20 mg 0730,1630 RONA Administration Guaifenesin 600 mg 12/08/18 21:00 12/09/18 09:56 Mucinex PO 600 mg BID RONA Administration Insulin Aspart 1 - 9 unit 12/08/18 21:00 12/09/18 07:55 Novolog SUBQ 3 unit 0800,1200,1700,2100 RONA Administration Protocol Insulin Glargine 16 unit 12/08/18 12:00 12/09/18 09:57 Lantus Solostar SUBQ 16 unit BID RONA Administration Losartan Potassium 50 mg 12/09/18 09:00 12/09/18 09:56 Cozaar PO 50 mg DAILY RONA Administration Magnesium Oxide 800 mg 12/09/18 09:00 12/09/18 09:55 Mag Ox PO 800 mg DAILY RONA Administration Methylprednisolone 40 mg 12/08/18 14:00 12/09/18 05:53 Solu-Medrol (40mg Vial) IVP 40 mg TID RONA Administration Metoprolol Succinate 25 mg 12/08/18 21:00 12/09/18 09:55 Toprol Xl PO 25 mg BID RONA Administration Montelukast Sodium 10 mg 12/08/18 21:00 12/08/18 20:41 Singulair PO 10 mg QPM RONA Administration Morphine Sulfate 2 mg 12/08/18 11:01 Morphine (Carpuject) IVP Q2HR PRN Dyspnea Non-Formulary Medication 1 tab 12/08/18 21:00 12/09/18 09:57 Mecobal/Levomefolat Ca/B6 Phos [S-Eipmym-W4-B12 Tablet] PO Not Given BID [facility] Non-Formulary Medication 1 each 12/08/18 21:00 12/09/18 09:57 Sacubitril/Valsartan [Entresto 24 Mg-26 Mg Tablet] PO Not Given BID [facility] Polyethylene Glycol 17 gm 12/09/18 09:00 12/09/18 09:57 Miralax PO Not Given DAILY [facility] Prochlorperazine Edisylate 10 mg 12/08/18 11:01 Compazine Inj IVP Q6HR PRN Nausea / Vomiting Sitagliptin Phosphate 100 mg 12/09/18 09:00 12/09/18 09:56 Januvia PO 100 mg DAILY RONA Administration Sodium Chloride 10 ml 12/08/18 11:01 12/09/18 09:58 Normal Saline Flush 0.9% IVP 10 ml PRN PRN Administration NEEDED PER PROVIDER ORDERS Sodium Chloride 10 ml 12/08/18 17:00 12/09/18 09:58 Normal Saline Flush 0.9% IVP 10 ml 0100,0900,1700 RONA Administration Spironolactone 12.5 mg 12/08/18 21:00 12/09/18 09:55 Aldactone PO 12.5 mg BID RONA Administration Tamsulosin HCl 0.4 mg 12/09/18 09:00 12/09/18 09:56 Flomax PO 0.4 mg DAILY RONA Administration Trazodone HCl 100 mg 12/08/18 11:04 12/08/18 21:48 Desyrel PO 100 mg QPM PRN Administration Insomnia Warfarin Sodium 5 mg 12/09/18 09:00 12/09/18 09:56 Coumadin PO 5 mg DAILY RONA Administration Weight 12/07/18 12/08/18 12/09/18 23:59 23:59 23:59 Weight (kg) 120 kg Objective - Vital Signs/Intake & Output Vital Signs: Vital Signs x48h Temp Pulse Pulse Resp BP Pulse Ox 12/09/18 07:45 36.3 C L 70 18 113/54 L 92 12/09/18 06:19 81 20 Intake & Output: Intake & Output 12/06/18 12/07/18 12/08/18 12/09/18 23:59 23:59 23:59 23:59 Intake Total 1140 720 Balance 1140 720 Daily weight has not yet been recorded today. I have asked nursing to please check and record today's weight for comparison, given the patient is on IV lasix in setting of CHF exacerbation - Lab Results Fish Bones: 12/09/18 05:04 12/09/18 05:04 Other Labs: Lab Results x24hrs 12/09/18 12/09/18 12/08/18 Range/Units 05:04 05:04 20:04 WBC 8.6 (4.8-10.8) x10^3/uL RBC 3.98 L (4.70-6.10) 10^6/uL Hgb 9.5 L (14.0-18.0) g/dL Hct 31.0 L (42.0-52.0) % MCV 77.9 L (80.0-94.0) fL MCH 23.9 L (27.0-31.0) pg MCHC 30.6 L (32.0-36.0) g/dL RDW 18.2 H (12.0-15.0) % Plt Count 311 (130-450) 10^3/uL MPV 9.2 (7.4-11.4) fL Neut # (Auto) 7.3 H (1.5-6.6) 10^3/uL Lymph # (Auto) 0.7 L (1.5-3.5) 10^3/uL Dixon # (Auto) 0.5 (0.0-1.0) 10^3/uL Eos # (Auto) 0.0 (0.0-0.7) 10^3/uL Baso # (Auto) 0.0 (0.0-0.1) 10^3/uL Absolute Nucleated RBC 0.00 x10^3/uL Nucleated RBC % 0.0 /100WBC Sodium 139 (135-145) mmol/L Potassium 4.1 (3.5-5.0) mmol/L Chloride 100 L (101-111) mmol/L Carbon Dioxide 28 (21-32) mmol/L Anion Gap 11.0 (6-13) BUN 42 H (6-20) mg/dL Creatinine 1.5 H (0.6-1.2) mg/dL Estimated GFR (MDRD) 46 L (>89) Glucose 206 H (70-100) mg/dL Glycated Hemoglobin 7.8 H (4.6-6.2) % Estim Average Glucose 177 H (70-100) Calcium 9.1 (8.5-10.3) mg/dL Magnesium 1.5 L (1.7-2.8) mg/dL Troponin I (<0.49) ng/mL Troponin I High Sens (2.3-19.7) pg/mL 12/08/18 12/08/18 12/08/18 Range/Units 20:04 13:55 13:55 WBC (4.8-10.8) x10^3/uL RBC (4.70-6.10) 10^6/uL Hgb (14.0-18.0) g/dL Hct (42.0-52.0) % MCV (80.0-94.0) fL MCH (27.0-31.0) pg MCHC (32.0-36.0) g/dL RDW (12.0-15.0) % Plt Count (130-450) 10^3/uL MPV (7.4-11.4) fL Neut # (Auto) (1.5-6.6) 10^3/uL Lymph # (Auto) (1.5-3.5) 10^3/uL Dixon # (Auto) (0.0-1.0) 10^3/uL Eos # (Auto) (0.0-0.7) 10^3/uL Baso # (Auto) (0.0-0.1) 10^3/uL Absolute Nucleated RBC x10^3/uL Nucleated RBC % /100WBC Sodium (135-145) mmol/L Potassium (3.5-5.0) mmol/L Chloride (101-111) mmol/L Carbon Dioxide (21-32) mmol/L Anion Gap (6-13) BUN (6-20) mg/dL Creatinine (0.6-1.2) mg/dL Estimated GFR (MDRD) (>89) Glucose (70-100) mg/dL Glycated Hemoglobin (4.6-6.2) % Estim Average Glucose (70-100) Calcium (8.5-10.3) mg/dL Magnesium (1.7-2.8) mg/dL Troponin I < 0.04 (<0.49) ng/mL Troponin I High Sens 9.4 11.3 (2.3-19.7) pg/mL ABX Reporting Has patient been on IV antibiotics over the past 48 hours?: No Assessment/Plan - Problem List (1) COPD exacerbation Impression: Conclusion/Plan: Acute on chronic COPD exacerbation with SOB at rest and on exertion. Lungs clearer today than yesterday. Still diminished to bases with slight expiratory wheeze in upper lobes. At home he is maintained on a LABA/ICS (salmet gordon/fluticasone) and a ROSINA/MARTIN (ipratropium/albuterol). Upon admit, he was started on IV methylpred 40mg TID. Given improvement in respiratory status, can consider transitioning to PO steroids today. Per GOLD guidelines, for a moderate exacerbation, prednisone 40mg daily x5 days is recommended while [place] [employer] favors a 14 day course. In setting of substantial recovery, and <3 week course, steroids do not require a taper. Plan: -MARTIN Nebs (Albuterol 2.5mg) QID scheduled, with 5mg PRN for dyspnea -Transition from IV methylpred to PO prednisone today, 40mg daily x4 more days -Can consider step-up in therapy with addition of a PDE-4 inhibitor -Target SpO2 goal of 88-92% as to not cause increased CO2 retention -In setting of recent hx of ESBL pneumonia, and with increase in rubbery mucus, will obtain a sputum culture--> still pending, though with clinical improvement overnight, less concerning for infectious process -Per the COPD Assessment Test (CAT), patient scores 33 points, indicating a very high health impact. and recommendations include smoking, cessation, reduced exposures to risk factors, ICS/LABA/LAMA therapy and supplemental O2 (2) Congestive heart failure Conclusion/Plan: Acute on chronic CHFrEF. Last echo done on 11/01/18 showing EF of 20-25%, cor pulmonale, mild aortic stenosis and regurg, and mild-mod mitral regurg. This is a decline from 03/2018 where EF was 40-45%. Lungs are diminished to bases, with rhonchi throughout with productive/wet cough. Weight on admit is documented as 120kg, and today was recorded at 97.5kg. Clinically, the patient's volume status does not seemed to have changed significantly overnight, and recorded I&Os show +720ml, though no output has been recorded. Plan: -Continue home HF meds -Continue lasix 40mg BID, transition to PO -Daily weight-->nursing to please record each AM -I&Os q shift -Low Na diet <2g Qualifiers: Heart failure type: systolic Heart failure chronicity: acute on chronic Qualified Code(s): I50.23 - Acute on chronic systolic (congestive) heart failure (3) RUSLAN (acute kidney injury) Conclusion/Plan: Cardio-renal syndrome in the setting of acute on chronic CHF. BUN 38, Crea 1.6, baseline Cr ~1.0. 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 He appears to have some venous insufficiency as well. Plan: -Accu checks AC/HS -Continue home oral glycemic agents, sitagliptin and glypizide -Insulin NPH 16u BID Qualifiers: Diabetes mellitus superintendent terminal insulin use: with superintendent terminal use Diabetes mellitus complication status: with ophthalmic complications Diabetes mellitus complication detail: with cataract Qualified Code(s): E11.36 - Type 2 diabetes mellitus with diabetic cataract; Z79.4 - detention (current) use of insulin (5) Generalized weakness Conclusion/Plan: Acute onset generalized weakness in setting of a/c COPD and CHF exacerbations which are being treated per plan above. He ambulated with a 4WW at baseline and has a max capacity of walking about 1 block. Plan: -PT consult ordered for help assessing patient needs/safety (6) Anemia Conclusion/Plan: Chronic hypochromic/microcytic anemia. Iron, FIBC and ferritin studies drawn in September revealing an iron deficiency. Folate and B12 WNL at this time as well. Plan: -Will obtain a stool guaiac to rule out GIB -Initiate PO ferrous gluconate Qualifiers: Anemia type: iron deficiency Iron deficiency anemia type: unspecified iron deficiency Qualified Code(s): D50.9 - Iron deficiency anemia, unspecified (7) Atrial fibrillation Conclusion/Plan: Chronic Afib for which he is anticoagulated with warfarin. On admit PT/INR in therapeutic range 25.5/2.3 respectively. EKG on admit shows NSR with LBBB. Dizziness that was reported on admit seems to now be more so of a generalized weakness and breathlessness per patient description. Plan: -Continue outpatient anticoagultion regimen, warfarin 5mg daily -Monitor PT/INRs Qualifiers: Atrial fibrillation type: unspecified Qualified Code(s): I48.91 - Unspecified atrial fibrillation <Minda Cloud - Last Filed: 12/10/18 08:05> Subjective - Subjective Subjective: Patient is seen in conjunction with [employer] student. My own history and exam are done. He is definitely worried about needing help at home. He refers to a vague plan for his children to be looking at an assisted living facility for him and Neville but he has no financial planning to get him to do that. When he left [place] [facility], after prolonged rehabilitation, he was able to get down to the grocery store and back by walking. Now it is a real chore to get back up that hill. He feels better overall. Still producing quite a bit of copious ulloa thick phlegm from his tracheostomy site. No fever, no chills, no hemoptysis. Appetite is good. Objective - Vital Signs/Intake & Output Vital Signs: Vital Signs x48h Temp Pulse Resp BP Pulse Ox 12/09/18 23:50 36.4 C L 66 20 119/50 L 99 Intake & Output: Intake & Output 12/07/18 12/08/18 12/09/18 12/10/18 23:59 23:59 23:59 23:59 Intake Total 1140 2130 Balance 1140 2130 - Objective General Appearance: positive: No acute distress, Alert, Other (Sitting upright i n a chair, eating breakfast, having episodes of coughing. He uses his finger to cover the trach so he can speak.) Eyes Bilateral: positive: PERRL, EOMI ENT: positive: No signs of dehydration Neck: positive: No JVD, Other (Tracheostomy in place.). negative: Stiff neck, Carotid bruit Respiratory: positive: Chest non-tender, No respiratory distress, Rhonchi (That are upper airway sounds. Copious copious secretions. Thick mucus.). negative: Wheezes, Rales Cardiovascular: positive: Regular rate & rhythm. negative: Gallop/S4, Friction rub Abdomen: positive: Non-tender, No organomegaly, Nml bowel sounds Skin: positive: Warm, Dry Extremities: positive: No pedal edema Neurologic/Psychiatric: positive: Oriented x3, CN's nml (2-12), Motor nml, Weakness - Lab Results Fish Bones: 12/10/18 05:21 12/10/18 05:21 Other Labs: Lab Results x24hrs 12/10/18 12/10/18 Range/Units 05:21 05:21 WBC 11.7 H (4.8-10.8) x10^3/uL RBC 4.30 L (4.70-6.10) 10^6/uL Hgb 10.1 L (14.0-18.0) g/dL Hct 33.8 L (42.0-52.0) % MCV 78.6 L (80.0-94.0) fL MCH 23.5 L (27.0-31.0) pg MCHC 29.9 L (32.0-36.0) g/dL RDW 18.6 H (12.0-15.0) % Plt Count 356 (130-450) 10^3/uL MPV 9.6 (7.4-11.4) fL Neut # (Auto) 9.2 H (1.5-6.6) 10^3/uL Lymph # (Auto) 1.6 (1.5-3.5) 10^3/uL Dixon # (Auto) 0.8 (0.0-1.0) 10^3/uL Eos # (Auto) 0.0 (0.0-0.7) 10^3/uL Baso # (Auto) 0.0 (0.0-0.1) 10^3/uL Absolute Nucleated RBC 0.00 x10^3/uL Nucleated RBC % 0.0 /100WBC Sodium 141 (135-145) mmol/L Potassium 3.9 (3.5-5.0) mmol/L Chloride 98 L (101-111) mmol/L Carbon Dioxide 29 (21-32) mmol/L Anion Gap 14.0 H (6-13) BUN 45 H (6-20) mg/dL Creatinine 1.4 H (0.6-1.2) mg/dL Estimated GFR (MDRD) 50 L (>89) Glucose 167 H (70-100) mg/dL Calcium 9.8 (8.5-10.3) mg/dL Magnesium 1.8 (1.7-2.8) mg/dL ABX Reporting Has patient been on IV antibiotics over the past 48 hours?: Yes Assessment/Plan - Problem List (1) COPD exacerbation Impression: Long discussion had with the use of long-acting bronchodilators combined with short acting bronchodilators and the use of steroids. This patient states he is in a limited income. So I have taken to account his ability to be compliant in the face of the cost of these medications. I thought about adding Dulera but it is prohibitively expensive. Will continue prednisone 40 mg for 5 days total. He is already improved. Will discuss with social work his home needs and see if there is anything we, as a healthcare system, can help him remain in his home. Sputum culture will be sent. Not clinically ill with pneumonia and that he does not have a fever, white cell count, and his exacerbation appears to be improving. (2) Congestive heart failure Conclusion/Plan: Acute on chronic CHFrEF. Last echo done on 11/01/18 showing EF of 20-25%, cor pulmonale, mild aortic stenosis and regurg, and mild-mod mitral regurg. This is a decline from 03/2018 where EF was 40-45%. Weight recorded at admission appears to be incorrect. Will compare tomorrow's weight to today's weight. Continue to diurese with Lasix 40 mg twice daily but change him to p.o. Qualifiers: Heart failure type: systolic Heart failure chronicity: acute on chronic Qualified Code(s): I50.23 - Acute on chronic systolic (congestive) heart failure (3) RUSLAN (acute kidney injury) Conclusion/Plan: Baseline creatinine is 1.0. With this admission he is 1.5-1.6 in the face of cardiorenal syndrome. We will continue to monitor daily. I anticipate will improve once his congestive heart failure improves. 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 He appears to have some venous insufficiency as well. Glucose yesterday was 193, 308, 375, 206, 314. This morning he is to 83 and 288 in the face of the use of steroids. He uses Lantus 16 units subcu twice daily at home, Januvia 100 mg daily. Here he is on Glucotrol, short acting NovoLog sliding scale, and his usual Lantus. I expect he is elevated on the basis of his steroids. If he continues to be elevated tomorrow we will increase short acting and Lantus. Qualifiers: Diabetes mellitus superintendent terminal insulin use: with penitentiary use Diabetes mellitus complication status: with ophthalmic complications Diabetes mellitus complication detail: with cataract Qualified Code(s): E11.36 - Type 2 diabetes mellitus with diabetic cataract; Z79.4 - detention (current) use of insulin (5) Generalized weakness Conclusion/Plan: Physical therapy has seen the patient. Today's note states:Pt is seated in chair, agreeable to therapy. Pt reports he is able to complete toileting tasks here w/ SBA, requires assist for management of lines. Pt reports he has recently had a home evaluation completed during his recent stay at SNf. Pt's home appears to be well set-up, however his barrier to returning home independently appears to be decreased functional activity tolerance. Pt would benefit from 1-2 more OT sessions to address decreased strength, functional activity tolerance, independence w/ self cares, functional mobility, assess for AE needs, and assist w/ d/c planning. Pt may benefit from [facility] type facility when he is medically ready to d/c home, but may also be able to return home w/ increased caregiver support in home setting. (6) Anemia Conclusion/Plan: Chronic hypochromic/microcytic anemia. Iron, FIBC and ferritin studies drawn in September revealing an iron deficiency. Folate and B12 WNL at this time as well. Plan: -Will obtain a stool guaiac to rule out GIB -Initiate PO ferrous gluconate Qualifiers: Anemia type: iron deficiency Iron deficiency anemia type: unspecified iron deficiency Qualified Code(s): D50.9 - Iron deficiency anemia, unspecified (7) Atrial fibrillation Conclusion/Plan: Chronic Afib for which he is anticoagulated with warfarin. On admit PT/INR in therapeutic range 25.5/2.3 respectively. EKG on admit shows NSR with LBBB. Dizziness that was reported on admit seems to now be more so of a generalized weakness and breathlessness per patient description. Plan: -Continue outpatient anticoagultion regimen, warfarin 5mg daily -Monitor PT/INRs Qualifiers: Atrial fibrillation type: unspecified Qualified Code(s): I48.91 - Unspecifi ed atrial fibrillation
[2018-12-09] MEDS: predniSONE 20 MG TABLET PO SCH (12:33)
[2018-12-09] MEDS: FUROSEMIDE 40 MG TABLET PO SCH (14:41)
[2018-12-09] MEDS: MONTELUKAST 10 MG TABLET PO SCH (21:51)
[2018-12-10] MEDS: SODIUM CHLORIDE FLUSH 0.9% 10 ML SYRINGE IVP SCH ×2 (00:05→10:13)
[2018-12-10 05:59] LABS: BASOPHILS % (AUTO) 0.1 %; EOSINOPHILS % (AUTO) 0.1 %; HGB - HEMOGLOBIN 10.1 g/dL (14.0-18.0); LYMPHOCYTES # (AUTO) 1.6 10^3/uL (1.5-3.5); LYMPHOCYTES % (AUTO) 13.7 %; MEAN CORPUSCULAR HEMOGLOBIN 23.5 pg (27.0-31.0); MEAN CORPUSCULAR HGB CONC 29.9 g/dL (32.0-36.0); MEAN CORPUSCULAR VOLUME 78.6 fL (80.0-94.0); MEAN PLATELET VOLUME 9.6 fL (7.4-11.4); MONOCYTES # (AUTO) 0.8 10^3/uL (0.0-1.0); MONOCYTES % (AUTO) 7.1 %; NEUTROPHILS # (AUTO) 9.2 10^3/uL (1.5-6.6); NEUTROPHILS % (AUTO) 78.7 %; PLT - PLATELET COUNT 356 10^3/uL (130-450); RED CELL DISTRIBUTION WIDTH 18.6 % (12.0-15.0); WHITE BLOOD COUNT 11.7 x10^3/uL (4.8-10.8)
[2018-12-10 06:12] LABS: CALCIUM 9.8 mg/dL (8.5-10.3); CREATININE 1.4 mg/dL (0.6-1.2); MAGNESIUM 1.8 mg/dL (1.7-2.8)
[2018-12-10] MEDS: FUROSEMIDE 40 MG TABLET PO SCH ×2 (07:00→14:23)
[2018-12-10] MEDS: glipiZIDE 5 MG TABLET PO SCH ×2 (07:00→16:53)
[2018-12-10] MEDS: ALBUTEROL NEB 2.5 MG/3 ML INH SCH ×2 (07:46→13:45)
[2018-12-10] MEDS: FERROUS GLUCONATE 324 MG TABLET PO SCH (08:23)
[2018-12-10] MEDS: predniSONE 20 MG TABLET PO SCH (08:23)
[2018-12-10] MEDS: INSULIN ASPART 300 UNIT/3 ML PEN SUBQ SCH ×3 (08:23→16:53)
[2018-12-10] MEDS: AMIODARONE 200 MG TABLET PO SCH (10:10)
[2018-12-10] MEDS: FAMOTIDINE 20 MG TABLET PO SCH (10:10)
[2018-12-10] MEDS: LOSARTAN 50 MG TABLET PO SCH (10:11)
[2018-12-10] MEDS: INSULIN GLARGINE 300 UNIT/3 ML PEN SUBQ SCH (10:11)
[2018-12-10] MEDS: guaiFENesin 600 MG TABLET PO SCH (10:11)
[2018-12-10] MEDS: POLYETHYLENE GLYCOL 3350 17 GM PACKET PO SCH (10:12)
[2018-12-10] MEDS: LEVOMEFOLAT CA PO SCH (10:12)
[2018-12-10] MEDS: METOPROLOL SUCCINATE 25 MG TABLET PO SCH (10:12)
[2018-12-10] MEDS: B6 PHOS PO SCH (10:12)
[2018-12-10] MEDS: MAGNESIUM OXIDE 400 MG TABLET PO SCH (10:12)
[2018-12-10] MEDS: MECOBAL PO SCH (10:12)
[2018-12-10] MEDS: SPIRONOLACTONE 25 MG TABLET PO SCH (10:13)
[2018-12-10] MEDS: WARFARIN 5 MG TABLET PO SCH (10:14)
[2018-12-10] MEDS: VALSARTAN PO SCH (10:14)
[2018-12-10] MEDS: TAMSULOSIN 0.4 MG CAPSULE PO SCH (10:14)
[2018-12-10] MEDS: SACUBITRIL PO SCH (10:14)
--- NOTE | 2018-12-10 14:21 | Discharge Plan ---
Discharge Plan Problem Reviewed?: Yes Disposition: Home, Self Care Condition: Stable Prescriptions: predniSONE [Deltasone] 40 mg PO DAILYWM #4 tablet Diet: Regular Activity Restrictions: Activity as Tolerated Shower Restrictions: No Driving Restrictions: No Health Concerns: You were brought to the emergency room by your family because you had 2 days of coughing, unable to lay down flat because of shortness of breath, and a little bit of swelling around your ankles. We found you to have mild exacerbation of your chronic emphysema. You are already on 3 L of oxygen 11/12. We also found you to have mild congestive heart failure. Plan of Treatment: 1. While you are here, we treated your emphysema with nebulizer breathing treatments and IV steroids for 2 days. We have switched you over to steroids by mouth and you only need to take 2 more days at home. Please continue your nebulizers at home. Try and take them twice a day. 2. For the congestive heart failure, we added Lasix, intravenously, for a few days and made you urinate briskly. You are now going home on Lasix 20 mg tablets by mouth twice a day. We did do an ultrasound of your heart called an echocardiogram. The main reason you have congestive heart failure is a very stiff muscle on the left chamber, the stiffness causes blood to back up a little bit into your lungs and make you short of breath. Care Goals: 1. You have lost some ground with regards to endurance. It is hard for you to walk very far, and just getting up to go to the bathroom makes you tired. I think you would be a candidate for cardiopulmonary [place] [facility] [place] This would help your ability to walk further, and use less oxygen. 2. You were also expressing interest in getting more help at home. Social work has been speaking to you and your children are already looking for facilities and [place]. Trying to figure out how you are going to pay for that. I recommend that you continue to make those plans to identify which facility would be right for you. 3. When you see DAMON Monet, please have her check a BMP and BNP. These are test for potassium, kidney, and heart function. Assessment: Patient expresses understanding. He will follow-up with his primary care provider SHIRA Catalan No Smoking: If you smoke, Please STOP! Call for help. Follow-up with: Georgie Monet ARNP [Credentialed Staff Provider] -
[2018-12-10 16:42] VITALS: BP 140/50
--- NOTE | 2018-12-11 19:01 | DISCHARGE SUMMARY ---
Physician: Minda Cloud MD DATE OF ADMISSION: 12/08/2018 DATE OF DISCHARGE: 12/10/2018 DISCHARGE DIAGNOSES 1. Acute on chronic systolic heart failure. 2. Chronic obstructive pulmonary disease exacerbation. 3. Acute kidney injury, superimposed on chronic kidney disease, stage 3. 4. Type 2 diabetes mellitus, controlled. 5. Generalized weakness. 6. Iron deficiency anemia. 7. Paroxysmal atrial fibrillation. DISCHARGE MEDICATIONS 1. Amiodarone 200 mg daily. 2. Advair 250 mg/21 inhaler 2 puffs b.i.d. 3. Lasix 40 mg b.i.d. 4. Glipizide 20 mg b.i.d. 5. Lantus 16 units subcutaneous b.i.d. 6. DuoNeb via nebulizer inhalation. 7. Lisinopril 2.5 mg p.o. b.i.d. 8. Losartan 50 mg daily. 9. Magnesium oxide 800 mg daily. 10. B6 and B12 tablet p.o. b.i.d. 11. Januvia 100 mg daily. 12. Aldactone 12.5 mg b.i.d. 13. Trazodone 100 mg p.o. q.p.m. 14. Coumadin 5 mg p.o. daily. 15. Metoprolol XL 25 mg b.i.d. 16. Singulair 10 mg p.o. q.p.m. 17. Prednisone 40 mg daily for 4 more days. 18. Entresto 24/20 mg p.o. b.i.d. 19. Flomax 0.4 mg p.o. daily. PRINCIPAL PROCEDURES 1. Chest x-ray with trace left pleural effusion and minimal basal atelectasis. 2. Urine culture less than 10,000 colonies. 3. Respiratory culture with Staphylococcus aureus, Proteus mirabilis, Klebsiella pneumoniae. HOSPITAL COURSE: Patient is a 73-year-old man who lives in his own trailer. He uses 5 liters of zheng al cannula oxygen for chronic respiratory failure from COPD. He had an ESBL Klebsiella pneumoniae, w as hospitalized here and then transferred to [facility] for rehabilitation. He was discharge d in 07/2018. When he got home from [facility], his oxygen requirement was 2 liters per karine te. Over the last few weeks, he has gradually been increasing his oxygen to 5 liters per minute to b e able to walk. He was able to walk down to the grocery store and slowly back up the hill to his tra iler. That was when he got at [facility]. But in the last few weeks, he has noticed that it is getting harder and harder to walk back up the hill. He complains of orthopnea. He is preferring to sleep i n his recliner. He has a tracheostomy and changes his trach tube about every 3 weeks. He thinks it has been over 3 weeks since his last time. Around midnight, the night before admission, he became ac utely short of breath and dizzy and felt very weak. He reported a thick, rubbery, ulloa colored mucus expectoration, which is increased from baseline and thicker from baseline. He called for an ambulanc e to bring him to the emergency room. Since arrival to the emergency room, he described 3 episodes o f intermittent "sharp twinge" in his left chest. Pain does not fluctuate with respirations. Nonradi ating. He was afebrile, with a blood pressure in the 120s/60s, and having 98% saturations on 5 liters. He h ad dry oral mucosa, a tracheostomy in place, wheezes in the left upper lung and bilateral lower lobe bronchi. Regular rate and rhythm. He was alert, oriented. Had numbness to his feet. Slightly tear ful, but calm and cooperative. HOSPITAL COURSE: He was felt to be having acute COPD exacerbation that was relatively mild consideri ng his severe history. He was given nebulizers, IV steroids, and in the setting of recent ESBL pneum onia, a sputum culture was done. Throughout his stay, he remained afebrile, and white cell count was not elevated until the day of discharge. He did not require antibiotic therapy and he responded to steroids and nebulizers. To make sure there was not an element of congestive heart failure, BNP was obtained and was 138. We did discuss adding medications to his Advair and his DuoNeb, but the patien t says he is very fixated on income and the addition of Dulera would not be helpful. As such, he was considered on Singulair. We think he would do well with cardiopulmonary rehab, which would help naseem barnesin his endurance. He seems to have lost some ground since being [facility]. As such, at discharge, we are recommending he follow up with cardiopulricardo block rehab here at the hospital. An oxygen desaturation test was done on him to make sure that he did not require even more oxygen or Trilogy noninvasive ventilator. He was actually able to do well on 3 liters of nasal cannula oxygen with walking and at rest. As such, I have asked him to go back down from 5 liters to 3 liters when he returns to home. He continues to stress that he feels like he nee ds more help at home and as such, a care conference was held between his daughter, son-in-law, social work, myself. He verifies that he finds it very hard to ask his children for help. He wants to rem ain independent and hates the idea that he is going to be asking them to come help him by driving him places or to help him buy groceries. Even though he says that he can drive himself, he finds it inc reasingly difficult to do so. He also acknowledges that down the road he does not see himself living by himself being able to take care of himself. As such, he and his children are making plans for se lling some of his things, and possibly being taken in as a resident of [facility]. His last echocardiogram done 11/01/2018 showed an ejection fraction of 25% with cor pulmonale, mild a ortic stenosis and regurgitation, and mild to moderate mitral regurgitation. This was a decline from 03/2018 where his ejection fraction was 40-45%. Throughout his stay, he had diminished breath sound s, intermittent rhonchi. Lasix IV was transitioned to p.o. He had acute kidney injury noted from ca rdiorenal syndrome in the setting of acute on chronic congestive heart failure. His creatinine was 1 .6 on admission and 1.4 by discharge. Troponins were negative. Type 2 diabetes mellitus was controlled with his home oral glycemic agents and his Lantus as well as sliding scale. Glycosylated hemoglobin was 7.8% with this admission. During his stay, his chronic a trial fibrillation, and chronic anemia were noted. Iron studies done in 09/2018 showed an iron defic iency and he has been on iron tablets. Folate and B12 are normal. He is to continue on outpatient o ral therapy. His atrial fibrillation was controlled rate and he is continued on anticoagulation. Fo r his generalized weakness and his fears of not being able to take care of himself, Physical therapy worked with him. While they do feel he would benefit from occasional occupational therapy sessions t o address decreased strength, functional activity tolerance, and independence with self-care, we thin k he could do this in the outpatient setting. He is discharged in stable condition. PHYSICAL EXAMINATION VITAL SIGNS: Temperature is 36.9, pulse of 60, blood pressure 140/50, respirations 20, and he is 97% on room air. With exertion, he drops below 88% and requires 3 liters. GENERAL: He is a 6 feet tall, white male, tracheostomy in place where he puts his finger on there to be able to speak, 98 kg weight. Male pattern balding, slightly disheveled with a long uncombed bear d. HEENT: Pupils are reactive. Tongue midline. Neck is supple with shotty adenopathy and a trach in p lace. LUNGS: With coarse upper airway tubular breath sounds. Most of it is, I think, referred noise from his tracheostomy tube. HEART: PMI is laterally displaced with a regular rate and rhythm. Systolic ejection murmur. ABDOMEN: Protuberant, soft, nontender. Obese. EXTREMITIES: Have no edema. He is able to sit up by transitioning himself, as well as standing up a nd walking with a walker. Walking in the room, he does not have severe tachypnea or use of accessory muscles. He is discharged in stable condition to follow up with his primary care provider, Georgie Monet. To complete a total of 5 days of steroid therapy orally. To make sure he takes no more than 3 lite rs nasal cannula oxygen. To follow up with outpatient occupational therapy and PT as well as pulmona ry rehabilitation. He and his daughter and son-in-law will continue to plan for the future when he n eeds more care. We also went over quite a bit of nutrition counseling. How to avoid salt in his t to avoid worsening his chronic systolic congestive heart failure. TD: 12/11/2018 15:09
== END 2018-12-10 17:20 | disposition home or self-care (01) | DRG 190 ==
LOC: EDUNIT# → ED 03:56 → MS2 09:23
PROVIDERS: ADMIT Internal Medicine; ATTEND Specialist
DX: J44.1 Chronic obstructive pulmonary disease with (acute) exacerbation (principal); I50.23 Acute on chronic systolic (congestive) heart failure; E11.9 Type 2 diabetes mellitus without complications; N17.9 Acute kidney failure, unspecified; J96.10 Chronic respiratory failure, unspecified whether with hypoxia or hypercapnia; E11.22 Type 2 diabetes mellitus with diabetic chronic kidney disease; N18.3 Chronic kidney disease, stage 3 (moderate); E11.42 Type 2 diabetes mellitus with diabetic polyneuropathy; E11.51 Type 2 diabetes mellitus with diabetic peripheral angiopathy without gangrene; D50.9 Iron deficiency anemia, unspecified; I48.0 Paroxysmal atrial fibrillation; F17.210 Nicotine dependence, cigarettes, uncomplicated; I25.10 Atherosclerotic heart disease of native coronary artery without angina pectoris; I27.81 Cor pulmonale (chronic); I08.0 Rheumatic disorders of both mitral and aortic valves; I44.7 Left bundle-branch block, unspecified; K21.9 Gastro-esophageal reflux disease without esophagitis; M19.90 Unspecified osteoarthritis, unspecified site; M25.552 Pain in left hip; K59.09 Other constipation; R35.1 Nocturia; R35.0 Frequency of micturition; H54.7 Unspecified visual loss; Z66 Do not resuscitate; Z96.1 Presence of intraocular lens; Z99.81 Dependence on supplemental oxygen; Z93.0 Tracheostomy status; Z85.21 Personal history of malignant neoplasm of larynx; Z79.51 Long term (current) use of inhaled steroids; Z79.4 Long term (current) use of insulin; Z79.01 Long term (current) use of anticoagulants; Z87.01 Personal history of pneumonia (recurrent); Z95.1 Presence of aortocoronary bypass graft; Z98.42 Cataract extraction status, left eye; Z98.41 Cataract extraction status, right eye
CPT/HCPCS: 36415; 71045; 80048; 80053; 81001; 83036; 83605; 83690; 83735; 83880; 84484; 85025; 85610; 85730; 87070; 87077; 87086; 87181; 87205; 93005; 94640; 94644; 94645; 94761; 97116; 97161; 97166; 97535; 99284; 99285; A9270; J1815; J7512; 81003; 82272

== ENCOUNTER 2018-12-11 16:02 | Outpatient (CLI) | payer MEDICARE, OTHER | END 2018-12-11 16:03 | disposition critical access hospital (66) | LOC: EMS 16:02 | PROVIDERS: ATTEND Surgery | DX: H53.19 Other subjective visual disturbances (principal) | CPT/HCPCS: A0425; A0427 ==

== ENCOUNTER 2018-12-11 16:20 | Emergency (ER) | payer MEDICARE, OTHER ==
[2018-12-11 16:29] VITALS: BP 100/51
--- NOTE | 2018-12-11 16:34 | ED Physician Documentation ---
History of Present Illness - Stated complaint Stated Complaint: VISION PROBLEMS - Chief complaint Chief Complaint: Heent - History obtained from History obtained from: Patient - History of Present Illness Timing: Prior to arrival - Additonal information Additional information: Patient is a 73-year-old male with history of CHF, CAD, diabetes, COPD, laryngeal cancer with tracheotomy, chronic vision loss, previous cataracts presenting with floaters in his visual taylor over the past several hours without inciting incident or trauma. Patient denies scratching of cornea or other foreign body sensation. Patient was recently admitted to the hospital discharge several days ago. Patient requires oxygen at baseline and continues with home medications as instructed. Patient sees a local tile presser for his chronic vision loss and previous cataract surgery. Patient denies eye pain or vision loss associated with floaters. Patient also denies headache, pe riorbital swelling, periorbital erythema or other skin changes. He denies conjunctival infection, eye drainage, fever or other complication. Patient does wear glasses at baseline. He reports history of previous retinal detachment and states symptoms today are not similar to prior episode.No other improving or worsening factors noted. Review of Systems Constitutional: denies: Fever Eyes: reports: Other (Floaters). denies: Loss of vision, Decreased vision, Photophobia, Discharge, Irritation PD PAST MEDICAL HISTORY - Past Medical History Cardiovascular: Congestive heart failure Respiratory: COPD Neuro: None Endocrine/Autoimmune: Type 2 diabetes GI: GERD : None HEENT: Other Psych: None Musculoskeletal: Osteoarthritis Derm: None, Other drug resistant infections (ESBL positive Klebsiella pneumonia) - Past Surgical History Past Surgical History: Yes General: Other Cardiovascular: CABG HEENT: Cataracts, Tracheostomy - Present Medications Home Medications: Ambulatory Orders Medication Instructions Recorded Confirmed Tamsulosin [Flomax] 0.4 mg PO DAILY #30 capsule 06/21/18 12/08/18 Amiodarone HCl 200 mg PO DAILY 09/18/18 12/08/18 Fluticasone/Salmeterol [Advair Hfa 2 puffs INH BID 09/18/18 12/08/18 230-21 Mcg Inhaler] SITagliptin [Januvia] 100 mg PO DAILY 09/18/18 12/08/18 Trazodone HCl 100 mg PO QPM PRN 09/18/18 12/08/18 glipiZIDE [Glipizide] 20 mg PO 0730,1630 09/18/18 12/08/18 Metoprolol Succinate [Toprol Xl] 25 mg PO BID #60 tablet 09/21/18 12/08/18 Montelukast [Singulair] 10 mg PO QPM #30 tablet 09/21/18 12/08/18 Insulin Glargine [Lantus Solostar] 16 unit SUBQ BID 11/01/18 12/08/18 Sacubitril/Valsartan [Entresto 24 1 each PO BID #60 tablet 11/02/18 12/08/18 mg-26 mg Tablet] Furosemide 40 mg PO 0800,1200 12/08/18 12/08/18 Ipratropium/Albuterol Sulfate 3 ml INH QID 12/08/18 12/08/18 [Iprat-Albut 0.5-3(2.5) mg/3 ml] Lisinopril [Zestril] 2.5 mg PO BID 12/08/18 12/08/18 Losartan Potassium 50 mg PO DAILY 12/08/18 12/08/18 Magnesium Oxide 800 mg PO DAILY 12/08/18 12/08/18 Mecobal/Levomefolat Ca/B6 Phos 1 tab PO BID 12/08/18 12/08/18 [[id number] Tablet] Spironolactone [Aldactone] 12.5 mg PO BID 12/08/18 12/08/18 Warfarin Sodium 5 mg PO DAILY 12/08/18 12/08/18 predniSONE [Deltasone] 40 mg PO DAILYWM #4 tablet 12/10/18 - Allergies Allergies/Adverse Reactions: Allergies Allergy/AdvReac Type Severity Reaction Status Date / Time No Known Drug Allergies Allergy Verified 12/11/18 16:29 - Social History Does the pt smoke?: No Smoking Status: Former smoker Does the pt drink ETOH?: No Does the pt have substance abuse?: No - Immunizations Immunizations are current?: Yes - POLST Patient has POLST: No POLST Status: DNR PD ED PE NORMAL - Vitals Vital signs reviewed: Yes - General General: Alert and oriented X 3, No acute distress, Well developed/nourished - HEENT HEENT: Atraumatic, PERRL (Gross visual acuity intact and otherwise 20/20 on visual acuity testing. No periorbital swelling or other skin changes. No conjunctival injection. No pain with extraocular movements. No nystagmus.), EOMI, Moist mucous membranes - Cardiac Cardiac: RRR, No murmur - Respiratory Respiratory: No: No respiratory distress (Baseline labored breathing with O2 by NC and trach), Clear bilaterally (No crackles, rhonchi, wheezing, but generalized poor air movement throughout) - Abdomen Abdomen: Soft - Derm Derm: Other (Chronic venous stasis changes and dry skin of lower extremities bilaterally) - Extremities Extremities: No deformity, No tenderness to palpate, No edema (1+ pitting edema) - Neuro Neuro: Alert and oriented X 3, No motor deficit, No sensory deficit - Psych Psych: Normal mood, Normal affect Results - Vitals Vitals: Vital Signs - 24 hr 12/11/18 12/11/18 16:21 16:38 Temperature 36.0 C L 36.0 C L Heart Rate 65 65 Respiratory 20 20 Rate Blood Pressure 100/51 L 100/51 L O2 Saturation 95 97 Oxygen O2 Source [Without Activity] trach O2 Source [With Activity] Mechanical ventilator O2 Source Nasal cannula PD MEDICAL DECISION MAKING - ED course Complexity details: reviewed old records, reviewed results, re-evaluated patient, considered differential, d/w patient ED course: Patient presenting with symptoms likely indicating eye floaters. Do not find evidence of trauma and have low suspicion for corneal abrasion or globe injury. Additionally, patient adamantly denies pain and do not feel patient is at high risk for vitreous hemorrhage, thrombosis, glaucoma. No evidence of pre-or post septal cellulitis or other skin changes. No conjunctival injection or other changes to indicate conjunctivitis, iritis, uveitis. Patient denies other associated symptoms. However, given patient's significant concern, age, comorbidities obtain CT head to further rule out other intracranial pathology.CT head returned without evidence of acute pathology. Advised patient of results recommendations including the need to contact his tile presser after discharge and set up appointment in the next 1 to 2 days for follow-up, as well as strict return precautions. Patient voiced understanding and is comfortable with discharge plan. Departure - Departure Disposition: 01 Home, Self Care Clinical Impression: Vitreous floaters of both eyes Condition: Good Instructions: Flashes and Floaters Follow-Up: Georgie Monet ARNP [Primary Care Provider] - Within 3 Days Comments: Please continue use of your glasses. Recommend contacting Dr. Stratton, your tile presser, later today or tomorrow morning to schedule outpatient follow- up for further evaluation. Please return to the ED sooner if experience worsening symptoms or have other concerns.
--- NOTE | 2018-12-11 18:11 | CT Report ---
Reason: visual floaters without pain or vision loss Procedure Date: 12/11/2018 Accession Number: [id number] / [id number] Procedure: CT - HEAD WO CPT Code: FULL RESULT: EXAM: CT HEAD EXAM DATE: 12/11/2018 05:34 PM. CLINICAL HISTORY: Visual floaters without pain or vision loss. COMPARISON: HEAD W/O 02/17/2017 12:52 PM. TECHNIQUE: Multiaxial CT images were obtained from the foramen magnum to the vertex. Reformats: Sagittal and coronal. IV contrast: None. In accordance with CT protocol optimization, one or more of the following dose reduction techniques were utilized for this exam: automated exposure control, adjustment of mA and/or KV based on patient size, or use of iterative reconstructive technique. FINDINGS: Parenchyma: No intraparenchymal hemorrhage. No evidence of mass, midline shift, or CT findings of infarction. Adams-white differentiation is distinct. Extraaxial Spaces: There is generalized volume loss. No subdural or epidural collections identified. Ventricles: Normal in size and position. Sinuses and Orbits: Patient has undergone right scleral banding. The orbits demonstrate no acute CT abnormalities. Bones: No evidence of fracture or calvarial defect. Other: None. IMPRESSION: No acute intracranial CT abnormality. RADIA
== END 2018-12-11 18:31 | disposition home or self-care (01) ==
LOC: ED 16:20
DX: H43.393 Other vitreous opacities, bilateral (principal); I87.8 Other specified disorders of veins; I50.9 Heart failure, unspecified; E11.9 Type 2 diabetes mellitus without complications; Z79.4 Long term (current) use of insulin; J44.9 Chronic obstructive pulmonary disease, unspecified; I25.10 Atherosclerotic heart disease of native coronary artery without angina pectoris; Z95.1 Presence of aortocoronary bypass graft; Z87.891 Personal history of nicotine dependence; Z85.21 Personal history of malignant neoplasm of larynx; Z93.0 Tracheostomy status; Z66 Do not resuscitate
CPT/HCPCS: 70450; 99282; 99284

== ENCOUNTER 2018-12-16 08:00 | Outpatient (CLI) | payer MEDICARE, OTHER ==
[2018-12-16 18:36] LABS: HGB - HEMOGLOBIN 9.8 g/dL (14.0-18.0); MEAN CORPUSCULAR HEMOGLOBIN 23.6 pg (27.0-31.0); MEAN CORPUSCULAR HGB CONC 28.9 g/dL (32.0-36.0); MEAN CORPUSCULAR VOLUME 81.5 fL (80.0-94.0); MEAN PLATELET VOLUME 9.5 fL (7.4-11.4); RED BLOOD COUNT 4.16 10^6/uL (4.70-6.10); RED CELL DISTRIBUTION WIDTH 19.7 % (12.0-15.0); WHITE BLOOD COUNT 7.5 x10^3/uL (4.8-10.8)
[2018-12-16 18:37] LABS: CREATININE 1.9 mg/dL (0.6-1.2)
== END 2018-12-16 08:01 | disposition home or self-care (01) ==
LOC: LAB.N 08:00
PROVIDERS: ATTEND Family Medicine
DX: I50.9 Heart failure, unspecified (principal); I48.91 Unspecified atrial fibrillation
CPT/HCPCS: 36415; 80048; 83880; 85027; 85610

== ENCOUNTER 2018-12-16 10:15 | Outpatient (CLI) | payer MEDICARE, OTHER ==
--- NOTE | 2018-12-16 14:51 | XRAY Report ---
Reason: HIP JOINT PAIN, LEFT Procedure Date: 12/16/2018 Accession Number: [id number] / [id number] Procedure: XRN - Hips 2V BILAT CPT Code: FULL RESULT: EXAM: BILATERAL HIP RADIOGRAPHY EXAM DATE: 12/16/2018 10:52 AM. CLINICAL HISTORY: Hip joint pain, left. COMPARISON: HIP W/PELVIS 2-3V LT 02/27/2018 2:28 PM. TECHNIQUE: 2 views each. FINDINGS: Bones: Normal. No fractures or bone lesion. Right Hip: Degenerative changes of the right hip including moderate joint space loss and osteophytosis appear similar to 2018. Left Hip: End-stage degenerative changes including deformed femoral head, complete loss of joint space with osteophytosis, sclerosis and subchondral cyst formation again seen. Soft Tissues: Normal. No soft tissue swelling. 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 RADIA
== END 2018-12-16 10:16 | disposition home or self-care (01) ==
LOC: DI.N 10:15
PROVIDERS: ATTEND Family Medicine
DX: M16.0 Bilateral primary osteoarthritis of hip (principal)
CPT/HCPCS: 73521

== ENCOUNTER 2018-12-16 20:21 | Outpatient (CLI) | payer MEDICARE, OTHER | END 2018-12-16 20:22 | disposition critical access hospital (66) | LOC: EMS 20:21 | PROVIDERS: ATTEND Surgery | DX: R42 Dizziness and giddiness (principal); R55 Syncope and collapse | CPT/HCPCS: A0425; A0427 ==

== ENCOUNTER 2018-12-16 20:34 | Emergency (ER) | payer MEDICARE, OTHER ==
--- NOTE | 2018-12-16 20:55 | ED Physician Documentation ---
History of Present Illness - Stated complaint Stated Complaint: DIZZY - Chief complaint Chief Complaint: Resp - History obtained from History obtained from: Patient, EMS - History of Present Illness Timing: Today Pain level max: 0 Pain level now: 0 Improved by: rest Worsened by: standing - Additonal information Additional information: states feels lightheaded and dizzy today. states seeing spots when he sits up. Per EMS his trailer was very hot today. Patient states did not drink much water today. Has a trach and COPD. Review of Systems Ten Systems: 10 systems reviewed and negative Constitutional: denies: Fever, Chills Ears: denies: Ear pain Nose: denies: Rhinorrhea / runny nose, Congestion Cardiac: denies: Chest pain / pressure Respiratory: denies: Cough GI: denies: Abdominal Pain, Vomiting, Diarrhea Skin: denies: Rash Musculoskeletal: denies: Neck pain, Back pain Neurologic: denies: Headache PD PAST MEDICAL HISTORY - Past Medical History Past Medical History: Yes Cardiovascular: Congestive heart failure Respiratory: COPD Neuro: None Endocrine/Autoimmune: Type 2 diabetes GI: GERD : None HEENT: Other Psych: None Musculoskeletal: Osteoarthritis Derm: None, Other drug resistant infections - Past Surgical History Past Surgical History: Yes General: Other Cardiovascular: CABG HEENT: Cataracts, Tracheostomy - Present Medications Home Medications: Ambulatory Orders Medication Instructions Recorded Confirmed Tamsulosin [Flomax] 0.4 mg PO DAILY #30 capsule 06/21/18 12/08/18 Amiodarone HCl 200 mg PO DAILY 09/18/18 12/08/18 Fluticasone/Salmeterol [Advair Hfa 2 puffs INH BID 09/18/18 12/08/18 230-21 Mcg Inhaler] SITagliptin [Januvia] 100 mg PO DAILY 09/18/18 12/08/18 Trazodone HCl 100 mg PO QPM PRN 09/18/18 12/08/18 glipiZIDE [Glipizide] 20 mg PO 0730,1630 09/18/18 12/08/18 Metoprolol Succinate [Toprol Xl] 25 mg PO BID #60 tablet 09/21/18 12/08/18 Montelukast [Singulair] 10 mg PO QPM #30 tablet 09/21/18 12/08/18 Insulin Glargine [Lantus Solostar] 16 unit SUBQ BID 11/01/18 12/08/18 Sacubitril/Valsartan [Entresto 24 1 each PO BID #60 tablet 11/02/18 12/08/18 mg-26 mg Tablet] Furosemide 40 mg PO 0800,1200 12/08/18 12/08/18 Ipratropium/Albuterol Sulfate 3 ml INH QID 12/08/18 12/08/18 [Iprat-Albut 0.5-3(2.5) mg/3 ml] Lisinopril [Zestril] 2.5 mg PO BID 12/08/18 12/08/18 Losartan Potassium 50 mg PO DAILY 12/08/18 12/08/18 Magnesium Oxide 800 mg PO DAILY 12/08/18 12/08/18 Mecobal/Levomefolat Ca/B6 Phos 1 tab PO BID 12/08/18 12/08/18 [[id number] Tablet] Spironolactone [Aldactone] 12.5 mg PO BID 12/08/18 12/08/18 Warfarin Sodium 5 mg PO DAILY 12/08/18 12/08/18 predniSONE [Deltasone] 40 mg PO DAILYWM #4 tablet 12/10/18 - Allergies Allergies/Adverse Reactions: Allergies Allergy/AdvReac Type Severity Reaction Status Date / Time No Known Drug Allergies Allergy Verified 12/11/18 16:29 - Social History Does the pt smoke?: No Smoking Status: Never smoker Does the pt drink ETOH?: No Does the pt have substance abuse?: No - Immunizations Immunizations are current?: Yes - POLST Patient has POLST: No POLST Status: DNR PD ED PE NORMAL - Vitals Vital signs reviewed: Yes - General General: Alert and oriented X 3, No acute distress, Well developed/nourished - HEENT HEENT: PERRL, Moist mucous membranes - Neck Neck: Supple, no meningeal sign - Cardiac Cardiac: RRR, Strong equal pulses - Respiratory Respiratory: No respiratory distress, Other (bibasilar crackles, wheezing) - Abdomen Abdomen: Soft, Non tender, Non distended - Derm Derm: Warm and dry - Extremities Extremities: Other (B 2+ edema) - Neuro Neuro: Alert and oriented X 3 - Psych Psych: Normal mood, Normal affect Results - Vitals Vitals: Vital Signs - 24 hr 12/16/18 12/16/18 12/16/18 20:39 20:57 21:43 Temperature 36.3 C L Heart Rate 64 62 62 Respiratory 18 15 16 Rate Blood Pressure 102/85 H 102/85 H 102/48 L O2 Saturation 100 100 97 12/16/18 23:00 Temperature Heart Rate 61 Respiratory 14 Rate Blood Pressure 103/53 L O2 Saturation 96 Oxygen O2 Source [] trach O2 Source [] Mechanical ventilator O2 Source Nasal cannula Oxygen Flow Rate 2 - EKG (time done) 2038 Rate: Rate (enter#) (62) Rhythm: Paced QRS: LVH Ischemia: Q waves (II, III, aVF) - Labs Labs: Laboratory Tests 12/16/18 12/16/18 12/16/18 21:08 21:08 22:16 WBC 7.9 RBC 3.91 L Hgb 9.3 L Hct 30.9 L MCV 79.0 L MCH 23.8 L MCHC 30.1 L RDW 19.3 H Plt Count 300 MPV 8.8 Neut # (Auto) 5.6 Lymph # (Auto) 1.2 L Parmer # (Auto) 0.8 Eos # (Auto) 0.2 Baso # (Auto) 0.0 Absolute Nucleated RBC 0.00 Nucleated RBC % 0.0 Sodium 139 Potassium 4.1 Chloride 100 L Carbon Dioxide 25 Anion Gap 14.0 H BUN 46 H Creatinine 2.0 H Estimated GFR (MDRD) 33 L Glucose 100 Calcium 8.9 Total Bilirubin 0.7 AST 14 ALT 13 Alkaline Phosphatase 59 Total Protein 6.8 Albumin 3.3 Globulin 3.5 Albumin/Globulin Ratio 0.9 L Lipase 28 Urine Color YELLOW Urine Clarity CLEAR Urine pH 5.5 Ur Specific [place] 1.010 Urine Protein NEGATIVE Urine Glucose (UA) NEGATIVE Urine Ketones NEGATIVE Urine Occult Blood NEGATIVE Urine Nitrite NEGATIVE Urine Bilirubin NEGATIVE Urine Urobilinogen 0.2 (NORMAL) Ur Leukocyte Esterase NEGATIVE Ur Microscopic Review NOT INDICATED Urine Culture Comments NOT INDICATED PD MEDICAL DECISION MAKING - ED course Complexity details: reviewed results, re-evaluated patient, considered differential, d/w patient ED course: Patient with dehydration, likely exacerbated by the very hot trailer he was in. Feels better after IVF and cooling off. Ambulating without diff. No change in his chronic resp issues. No acute lab findings. Patient counseled regarding signs and symptoms for which I believe and urgent re-evaluation would be necessary. Patient with good understanding of and agreement to plan and is comfortable going home at this time This document was made in part using voice recognition software. While efforts are made to proofread this document, sound alike and grammatical errors may o ccur. Departure - Departure Disposition: 01 Home, Self Care Clinical Impression: Dehydration Condition: Good Instructions: ED Dehydration Follow-Up: LISA MANUEL MD [Primary Care Provider] - Within 3 Days Comments: Your symptoms appear related to dehydration and the temperature inside your trailer today. Drink plenty of water at home. Follow-up with your doctor for further care. Discharge Date/Time: 12/17/18 00:24
[2018-12-16] MEDS ORDERED: SODIUM CHLORIDE 0.9% 500 ML IV ONE (21:00)
[2018-12-16 21:12] LABS: BASOPHILS % (AUTO) 0.5 %; EOSINOPHILS # (AUTO) 0.2 10^3/uL (0.0-0.7); EOSINOPHILS % (AUTO) 2.5 %; HGB - HEMOGLOBIN 9.3 g/dL (14.0-18.0); LYMPHOCYTES # (AUTO) 1.2 10^3/uL (1.5-3.5); LYMPHOCYTES % (AUTO) 14.7 %; MEAN CORPUSCULAR HEMOGLOBIN 23.8 pg (27.0-31.0); MEAN CORPUSCULAR HGB CONC 30.1 g/dL (32.0-36.0); MEAN PLATELET VOLUME 8.8 fL (7.4-11.4); MONOCYTES # (AUTO) 0.8 10^3/uL (0.0-1.0); MONOCYTES % (AUTO) 10.5 %; NEUTROPHILS # (AUTO) 5.6 10^3/uL (1.5-6.6); NEUTROPHILS % (AUTO) 71.4 %; PLT - PLATELET COUNT 300 10^3/uL (130-450); RED BLOOD COUNT 3.91 10^6/uL (4.70-6.10); RED CELL DISTRIBUTION WIDTH 19.3 % (12.0-15.0); WHITE BLOOD COUNT 7.9 x10^3/uL (4.8-10.8)
[2018-12-16 21:26] LABS: ALBUMIN 3.3 g/dL (3.2-5.5); ALBUMIN/GLOBULIN RATIO 0.9 (1.0-2.2); BILIRUBIN,TOTAL 0.7 mg/dL (0.2-1.0); CALCIUM 8.9 mg/dL (8.5-10.3); TOTAL PROTEIN 6.8 g/dL (6.7-8.2)
[2018-12-16 22:24] LABS: BILIRUBIN,URINE NEGATIVE (NEGATIVE); GLUCOSE, URINE (UA) NEGATIVE (NEGATIVE); KETONES,URINE (UA) NEGATIVE (NEGATIVE); LEUKOCYTE ESTERASE, URINE NEGATIVE (NEGATIVE); NITRITE,URINE NEGATIVE (NEGATIVE); OCCULT BLOOD,URINE NEGATIVE (NEGATIVE); PH,URINE 5.5 PH (5.0-7.5); PROTEIN,URINE NEGATIVE (NEGATIVE); UROBILINOGEN,URINE 0.2 (NORMAL) E.U./dL (NORMAL)
[2018-12-16 22:27] LABS: CLARITY,URINE CLEAR (CLEAR)
[2018-12-16 23:24] VITALS: BP 103/53
== END 2018-12-17 00:24 | disposition home or self-care (01) ==
LOC: EDUNIT# → ED 20:34
DX: E86.0 Dehydration (principal); I50.9 Heart failure, unspecified; I48.91 Unspecified atrial fibrillation; Z79.01 Long term (current) use of anticoagulants; J44.9 Chronic obstructive pulmonary disease, unspecified; Z93.0 Tracheostomy status; E11.9 Type 2 diabetes mellitus without complications; Z79.4 Long term (current) use of insulin; M16.0 Bilateral primary osteoarthritis of hip; Z66 Do not resuscitate
CPT/HCPCS: 36415; 73521; 80048; 80053; 81001; 81003; 83690; 83880; 85025; 85027; 85610; 87086; 93005; 96360; 99284

== ENCOUNTER 2018-12-31 14:49 | Outpatient (CLI) | payer MEDICARE, OTHER ==
[2018-12-31 19:33] LABS: CREATININE 1.9 mg/dL (0.6-1.2)
[2018-12-31 19:41] LABS: HGB - HEMOGLOBIN 9.5 g/dL (14.0-18.0); MEAN CORPUSCULAR HEMOGLOBIN 24.3 pg (27.0-31.0); MEAN CORPUSCULAR VOLUME 81.1 fL (80.0-94.0); MEAN PLATELET VOLUME 9.6 fL (7.4-11.4); RED BLOOD COUNT 3.91 10^6/uL (4.70-6.10); RED CELL DISTRIBUTION WIDTH 20.3 % (12.0-15.0); WHITE BLOOD COUNT 7.4 x10^3/uL (4.8-10.8)
[2018-12-31 20:22] LABS: INR 4.7 (0.8-1.2)
== END 2018-12-31 23:59 | disposition home or self-care (01) ==
LOC: LAB.N 14:49
PROVIDERS: ATTEND Family Medicine
DX: R06.00 Dyspnea, unspecified (principal); I48.91 Unspecified atrial fibrillation
CPT/HCPCS: 36415; 80048; 83880; 85027; 85610

== ENCOUNTER 2018-12-31 14:53 | Outpatient (CLI) | payer MEDICARE, OTHER ==
--- NOTE | 2019-01-01 14:00 | XRAY Report ---
Reason: dyspnea on exertion Procedure Date: 12/31/2018 Accession Number: [id number] / [id number] Procedure: XRN - Chest 2 View X-Ray CPT Code: 93640 FULL RESULT: EXAM: CHEST RADIOGRAPHY EXAM DATE: 12/31/2018 03:32 PM. CLINICAL HISTORY: Dyspnea on exertion. COMPARISON: CHEST 1 VIEW 12/08/2018 4:16 AM CHEST 2 VIEW 09/17/2018 3:07 PM CHEST W/O 04/26/2017 2:31 PM. TECHNIQUE: 2 views. FINDINGS: Lungs/Pleura: No overt edema. No focal pneumonia. No gross pneumothorax or large effusion. Probable chronic left pleural thickening and/or small effusion. Appearance is similar to previous exam. Mediastinum: Heart size within normal limits. No mediastinal shift. Other: Previous median sternotomy. Stable left pacer/AICD. Previous tracheostomy. IMPRESSION: No acute process seen in the chest. RADIA
== END 2018-12-31 14:54 | disposition home or self-care (01) ==
LOC: DI.N 14:53
PROVIDERS: ATTEND Family Medicine
DX: R06.00 Dyspnea, unspecified (principal)
CPT/HCPCS: 71046

== ENCOUNTER 2019-01-03 08:00 | Outpatient (CLI) | payer MEDICARE, OTHER | END 2019-01-03 23:59 | disposition home or self-care (01) | LOC: LAB.N 08:00 | PROVIDERS: ATTEND Nurse Practitioner Gerontology | DX: I48.91 Unspecified atrial fibrillation (principal) | CPT/HCPCS: 85610 ==

== ENCOUNTER 2019-01-05 09:36 | Outpatient (CLI) | payer MEDICARE, OTHER | END 2019-01-05 09:37 | disposition critical access hospital (66) | LOC: EMS 09:36 | PROVIDERS: ATTEND Surgery | DX: R53.1 Weakness (principal) | CPT/HCPCS: A0425; A0429 ==

== ENCOUNTER 2019-01-05 10:18 | Emergency (ER) | payer MEDICARE, OTHER ==
[2019-01-05 10:38] LABS: BASOPHILS # (AUTO) 0.1 10^3/uL (0.0-0.1); BASOPHILS % (AUTO) 0.9 %; EOSINOPHILS # (AUTO) 0.2 10^3/uL (0.0-0.7); EOSINOPHILS % (AUTO) 2.9 %; HGB - HEMOGLOBIN 9.6 g/dL (14.0-18.0); LYMPHOCYTES # (AUTO) 1.4 10^3/uL (1.5-3.5); LYMPHOCYTES % (AUTO) 17.7 %; MEAN CORPUSCULAR HEMOGLOBIN 24.4 pg (27.0-31.0); MEAN CORPUSCULAR HGB CONC 30.3 g/dL (32.0-36.0); MEAN CORPUSCULAR VOLUME 80.7 fL (80.0-94.0); MONOCYTES # (AUTO) 0.6 10^3/uL (0.0-1.0); MONOCYTES % (AUTO) 7.3 %; NEUTROPHILS # (AUTO) 5.5 10^3/uL (1.5-6.6); NEUTROPHILS % (AUTO) 70.7 %; PLT - PLATELET COUNT 317 10^3/uL (130-450); RED BLOOD COUNT 3.93 10^6/uL (4.70-6.10); RED CELL DISTRIBUTION WIDTH 20.2 % (12.0-15.0); WHITE BLOOD COUNT 7.8 x10^3/uL (4.8-10.8)
[2019-01-05 10:40] LABS: ALBUMIN 3.5 g/dL (3.2-5.5); ALBUMIN/GLOBULIN RATIO 0.9 (1.0-2.2); BILIRUBIN,TOTAL 0.4 mg/dL (0.2-1.0); CALCIUM 8.9 mg/dL (8.5-10.3); CREATININE 2.2 mg/dL (0.6-1.2); TOTAL PROTEIN 7.3 g/dL (6.7-8.2)
[2019-01-05] MEDS ORDERED: SODIUM CHLORIDE 0.9% 500 ML IV ONE (10:51)
--- NOTE | 2019-01-05 10:55 | ED Physician Documentation ---
History of Present Illness - Stated complaint Stated Complaint: WEAKNESS - Chief complaint Chief Complaint: General - History obtained from History obtained from: Patient, EMS - History of Present Illness Timing: Today Pain level max: 0 Pain level now: 0 Improved by: Nothing Worsened by: Nothing - Additonal information Additional information: 73-year-old male presents to the emergency department stating that he feels weak today. States he has a slightly increased cough compared to usual. Nothing makes it better or worse. He has not had any fevers. He states that he did feel slightly clammy this morning and last time this happened his blood sugar was low. His blood sugar was 95 this morning. He states he was also recently treated for pneumonia. Has a history of COPD and CHF. Legs are not more swollen than usual. Review of Systems Ten Systems: 10 systems reviewed and negative Constitutional: denies: Fever Nose: denies: Rhinorrhea / runny nose, Congestion Cardiac: denies: Chest pain / pressure GI: denies: Vomiting : denies: Dysuria, Frequency, Hesitancy Skin: denies: Rash Musculoskeletal: denies: Neck pain, Back pain Neurologic: denies: Focal weakness, Numbness, Confused, Altered mental status, Headache PD PAST MEDICAL HISTORY - Past Medical History Past Medical History: Yes Cardiovascular: Congestive heart failure Respiratory: COPD Neuro: None Endocrine/Autoimmune: Type 2 diabetes GI: GERD : None HEENT: Other Psych: None Musculoskeletal: Osteoarthritis Derm: None, Other drug resistant infections - Past Surgical History Past Surgical History: Yes General: Other Cardiovascular: CABG HEENT: Cataracts, Tracheostomy - Present Medications Home Medications: Ambulatory Orders Medication Instructions Recorded Confirmed Tamsulosin [Flomax] 0.4 mg PO DAILY #30 capsule 06/21/18 12/08/18 Amiodarone HCl 200 mg PO DAILY 09/18/18 12/08/18 Fluticasone/Salmeterol [Advair Hfa 2 puffs INH BID 09/18/18 12/08/18 230-21 Mcg Inhaler] SITagliptin [Januvia] 100 mg PO DAILY 09/18/18 12/08/18 Trazodone HCl 100 mg PO QPM PRN 09/18/18 12/08/18 glipiZIDE [Glipizide] 20 mg PO 0730,1630 09/18/18 12/08/18 Metoprolol Succinate [Toprol Xl] 25 mg PO BID #60 tablet 09/21/18 12/08/18 Montelukast [Singulair] 10 mg PO QPM #30 tablet 09/21/18 12/08/18 Insulin Glargine [Lantus Solostar] 16 unit SUBQ BID 11/01/18 12/08/18 Sacubitril/Valsartan [Entresto 24 1 each PO BID #60 tablet 11/02/18 12/08/18 mg-26 mg Tablet] Furosemide 40 mg PO 0800,1200 12/08/18 12/08/18 Ipratropium/Albuterol Sulfate 3 ml INH QID 12/08/18 12/08/18 [Iprat-Albut 0.5-3(2.5) mg/3 ml] Lisinopril [Zestril] 2.5 mg PO BID 12/08/18 12/08/18 Losartan Potassium 50 mg PO DAILY 12/08/18 12/08/18 Magnesium Oxide 800 mg PO DAILY 12/08/18 12/08/18 Mecobal/Levomefolat Ca/B6 Phos 1 tab PO BID 12/08/18 12/08/18 [o-[id number]-B12 Tablet] Spironolactone [Aldactone] 12.5 mg PO BID 12/08/18 12/08/18 Warfarin Sodium 5 mg PO DAILY 12/08/18 12/08/18 predniSONE [Deltasone] 40 mg PO DAILYWM #4 tablet 12/10/18 - Allergies Allergies/Adverse Reactions: Allergies Allergy/AdvReac Type Severity Reaction Status Date / Time No Known Drug Allergies Allergy Verified 01/05/19 10:00 - Social History Does the pt smoke?: No Smoking Status: Never smoker Does the pt drink ETOH?: No Does the pt have substance abuse?: No - Immunizations Immunizations are current?: Yes - POLST Patient has POLST: No POLST Status: DNR PD ED PE NORMAL - Vitals Vital signs reviewed: Yes - General General: Alert and oriented X 3, No acute distress, Well developed/nourished - HEENT HEENT: PERRL, Moist mucous membranes - Neck Neck: Supple, no meningeal sign - Cardiac Cardiac: RRR, Strong equal pulses - Respiratory Respiratory: No respiratory distress, Other (Wheezing diminished breath sounds bilaterally) - Abdomen Abdomen: Soft, Non tender, Other (Mild distention) - Derm Derm: Warm and dry - Extremities Extremities: Other (1+ pitting edema. Mild erythema. No warmth. No tenderness.) - Neuro Neuro: Alert and oriented X 3 - Psych Psych: Normal mood, Normal affect Results - Vitals Vitals: Vital Signs - 24 hr 01/05/19 01/05/19 09:53 13:59 Temperature 36.5 C Heart Rate 69 77 Respiratory 26 H 18 Rate Blood Pressure 103/54 L 140/74 H O2 Saturation 100 95 Oxygen O2 Source [] trach O2 Source [] Mechanical ventilator O2 Source Nasal cannula - EKG (time done) 1101 Rate: Rate (enter#) (67) Rhythm: NSR Intervals: LBBB Compare to prior EKG: Unchanged from prior EKG (12/16/18) - Labs Labs: Laboratory Tests 01/05/19 01/05/19 01/05/19 10:16 10:16 13:04 WBC 7.8 RBC 3.93 L Hgb 9.6 L Hct 31.7 L MCV 80.7 MCH 24.4 L MCHC 30.3 L RDW 20.2 H Plt Count 317 MPV 9.0 Neut # (Auto) 5.5 Lymph # (Auto) 1.4 L [place] # (Auto) 0.6 Eos # (Auto) 0.2 Baso # (Auto) 0.1 Absolute Nucleated RBC 0.00 Nucleated RBC % 0.0 Manual Slide Review Indicated WBC Morphology NORMAL APPEARANCE Platelet Estimate NORMAL (130-450,000) Platelet Morphology NORMAL APPEARANCE RBC Morph Micro Appear 1+ ANISOCYTOSIS Sodium 140 Potassium 4.6 Chloride 104 Carbon Dioxide 24 Anion Gap 12.0 BUN 61 H Creatinine 2.2 H Estimated GFR (MDRD) 29 L Glucose 125 H Calcium 8.9 Total Bilirubin 0.4 AST 15 ALT 16 Alkaline Phosphatase 75 Total Protein 7.3 Albumin 3.5 Globulin 3.8 Albumin/Globulin Ratio 0.9 L Lipase 32 Urine Color YELLOW Urine Clarity CLEAR Urine pH 6.0 Ur Specific [place] 1.010 Urine Protein NEGATIVE Urine Glucose (UA) NEGATIVE Urine Ketones NEGATIVE Urine Occult Blood NEGATIVE Urine Nitrite NEGATIVE Urine Bilirubin NEGATIVE Urine Urobilinogen 0.2 (NORMAL) Ur Leukocyte Esterase NEGATIVE Ur Microscopic Review NOT INDICATED Urine Culture Comments NOT INDICATED - Rads (name of study) cxr Radiology: Prelim report reviewed, EMP read contemporaneously, See rad report (1. Similar appearance of streaky left basilar opacity, likely atelectasis or sc arring. Superimposed aspiration or pneumonia cannot be completely excluded. 2. Mild left basilar pleural thickening or small effusion appears unchanged. ) PD MEDICAL DECISION MAKING - ED course Complexity details: reviewed results, re-evaluated patient, considered differential, d/w patient ED course: Unclear etiology of the patient's symptoms. He does have antibiotics at his doctor placed him on that he had filled yesterday. Has not yet started them. We will have him start these and see if it helps him. He does feel better after a slight fluid bolus. Does have a slight acute kidney injury. Patient is well-appearing, nontoxic. Afebrile. No evidence of acute coronary syndrome. No evidence of pulmonary embolus. Patient counseled regarding signs and symptoms for which I believe and urgent re-evaluation would be necessary. Patient with good understanding of and agreement to plan and is comfortable going home at this time This document was made in part using voice recognition software. While efforts are made to proofread this document, sound alike and grammatical errors may occur. Departure - Departure Disposition: 01 Home, Self Care Clinical Impression: Dehydration Condition: Good Instructions: ED Dehydration Follow-Up: LISA MANUEL MD [Primary Care Provider] - Within 1 week Comments: Return if you worsen. Start the prescriptions your doctor gave you. Discharge Date/Time: 01/05/19 15:02
[2019-01-05 11:27] LABS: PLATELET ESTIMATE, MANUAL NORMAL (130-450,000) (NORMAL); PLATELET MORPHOLOGY NORMAL APPEARANCE (NORMAL)
--- NOTE | 2019-01-05 12:40 | XRAY Report ---
Reason: fever, cough Procedure Date: 01/05/2019 Accession Number: [id number] / [id number] Procedure: XR - Chest 2 View X-Ray CPT Code: 32418 FULL RESULT: EXAM: CHEST RADIOGRAPHY EXAM DATE: 01/05/2019 12:08 PM. CLINICAL HISTORY: Fever, cough. COMPARISON: CHEST 2 VIEW 12/31/2018 3:38 PM CHEST 2 VIEW 04/19/2018 1:09 PM. TECHNIQUE: 2 views. FINDINGS: Support apparatus: Tracheostomy tube is in similar position. There is a left subclavian implanted cardiac pacer device. The leads are in unchanged position. Lungs/Pleura: There is similar appearance of streaky atelectasis or scarring at the left lung base. There is similar appearance of probable chronic left basilar pleural thickening or effusion. The right lung is clear. No right pleural effusion or pneumothorax. Mediastinum: There is similar borderline enlargement of the cardiac silhouette. There is mild atherosclerotic calcification of the aortic arch. Other: No acute osseous abnormality. There are mild to moderate degenerative disk changes of the thoracic spine. IMPRESSION: 1. Similar appearance of streaky left basilar opacity, likely atelectasis or scarring. Superimposed aspiration or pneumonia cannot be completely excluded. 2. Mild left basilar pleural thickening or small effusion appears unchanged. RADIA
[2019-01-05 13:14] LABS: BILIRUBIN,URINE NEGATIVE (NEGATIVE); GLUCOSE, URINE (UA) NEGATIVE (NEGATIVE); KETONES,URINE (UA) NEGATIVE (NEGATIVE); LEUKOCYTE ESTERASE, URINE NEGATIVE (NEGATIVE); NITRITE,URINE NEGATIVE (NEGATIVE); OCCULT BLOOD,URINE NEGATIVE (NEGATIVE); PROTEIN,URINE NEGATIVE (NEGATIVE); UROBILINOGEN,URINE 0.2 (NORMAL) E.U./dL (NORMAL)
[2019-01-05 13:17] LABS: CLARITY,URINE CLEAR (CLEAR)
[2019-01-05 14:04] VITALS: BP 140/74
== END 2019-01-05 15:02 | disposition home or self-care (01) ==
LOC: ED 10:18
DX: E86.0 Dehydration (principal); E11.9 Type 2 diabetes mellitus without complications; Z79.4 Long term (current) use of insulin; Z66 Do not resuscitate
CPT/HCPCS: 36415; 71046; 80053; 81001; 81003; 83690; 85025; 87086; 93005; 96360; 96361; 99284

== ENCOUNTER 2019-01-08 23:05 | Outpatient (CLI) | payer MEDICARE, OTHER | END 2019-01-08 23:06 | disposition critical access hospital (66) | LOC: EMS 23:05 | PROVIDERS: ATTEND Surgery | DX: R42 Dizziness and giddiness (principal); R20.0 Anesthesia of skin | CPT/HCPCS: A0425; A0429 ==

== ENCOUNTER 2019-01-08 23:20 | Emergency (ER) | payer MEDICARE, OTHER ==
[2019-01-08] MEDS ORDERED: SODIUM CHLORIDE 0.9% 500 ML IV ONE (23:40)
[2019-01-09 00:02] LABS: BASOPHILS # (AUTO) 0.1 10^3/uL (0.0-0.1); BASOPHILS % (AUTO) 0.7 %; EOSINOPHILS # (AUTO) 0.2 10^3/uL (0.0-0.7); EOSINOPHILS % (AUTO) 2.1 %; HGB - HEMOGLOBIN 9.1 g/dL (14.0-18.0); LYMPHOCYTES # (AUTO) 0.9 10^3/uL (1.5-3.5); LYMPHOCYTES % (AUTO) 9.6 %; MEAN CORPUSCULAR HEMOGLOBIN 24.3 pg (27.0-31.0); MEAN CORPUSCULAR HGB CONC 29.7 g/dL (32.0-36.0); MEAN CORPUSCULAR VOLUME 81.8 fL (80.0-94.0); MEAN PLATELET VOLUME 8.8 fL (7.4-11.4); MONOCYTES # (AUTO) 0.8 10^3/uL (0.0-1.0); MONOCYTES % (AUTO) 8.1 %; NEUTROPHILS # (AUTO) 7.4 10^3/uL (1.5-6.6); NEUTROPHILS % (AUTO) 78.9 %; PLT - PLATELET COUNT 281 10^3/uL (130-450); RED BLOOD COUNT 3.74 10^6/uL (4.70-6.10); RED CELL DISTRIBUTION WIDTH 20.6 % (12.0-15.0); WHITE BLOOD COUNT 9.4 x10^3/uL (4.8-10.8)
[2019-01-09 00:11] LABS: PT - PROTHROMBIN TIME 33.3 secs (9.9-12.6)
[2019-01-09 00:18] LABS: ALBUMIN 3.3 g/dL (3.2-5.5); ALBUMIN/GLOBULIN RATIO 0.8 (1.0-2.2); BILIRUBIN,TOTAL 0.2 mg/dL (0.2-1.0); CALCIUM 8.8 mg/dL (8.5-10.3); CREATININE 1.8 mg/dL (0.6-1.2); TOTAL PROTEIN 7.2 g/dL (6.7-8.2)
--- NOTE | 2019-01-09 00:20 | ED Physician Documentation ---
History of Present Illness - Stated complaint Stated Complaint: DIZZINESS - Chief complaint Chief Complaint: Neuro - History obtained from History obtained from: Patient, EMS - History of Present Illness Timing: Today Pain level max: 0 Pain level now: 0 Improved by: nothing Worsened by: nothing - Additonal information Additional information: 73-year-old male presents to the emergency department complaining of feeling lightheaded and dizzy earlier today. This lasted for about 10 to 15 minutes. No chest pain. No difficulty breathing. He does state that he has had confusion for at least the last month or 2. The lightheaded and dizziness, nothing made it better or worse. Review of Systems Ten Systems: 10 systems reviewed and negative Constitutional: denies: Fever, Chills Eyes: denies: Decreased vision, Photophobia Ears: denies: Drainage/discharge Nose: denies: Rhinorrhea / runny nose, Congestion Throat: denies: Sore throat Cardiac: denies: Chest pain / pressure, Palpitations, Calf pain Respiratory: denies: Cough GI: denies: Nausea, Vomiting : denies: Dysuria Skin: denies: Rash Musculoskeletal: denies: Neck pain, Back pain Neurologic: denies: Headache PD PAST MEDICAL HISTORY - Past Medical History Past Medical History: Yes Cardiovascular: Congestive heart failure Respiratory: COPD, Other Neuro: None Endocrine/Autoimmune: Type 2 diabetes GI: GERD : None HEENT: Other Psych: None Musculoskeletal: Osteoarthritis Derm: None, Other drug resistant infections - Past Surgical History Past Surgical History: Yes General: Other Cardiovascular: CABG HEENT: Cataracts, Tracheostomy - Present Medications Home Medications: Ambulatory Orders Medication Instructions Recorded Confirmed Tamsulosin [Flomax] 0.4 mg PO DAILY #30 capsule 06/21/18 01/08/19 Amiodarone HCl 200 mg PO DAILY 09/18/18 01/08/19 Fluticasone/Salmeterol [Advair Hfa 2 puffs INH BID 09/18/18 01/08/19 230-21 Mcg Inhaler] SITagliptin [Januvia] 100 mg PO DAILY 09/18/18 01/08/19 Trazodone HCl 100 mg PO QPM PRN 09/18/18 01/08/19 glipiZIDE [Glipizide] 20 mg PO 0730,1630 09/18/18 01/08/19 Metoprolol Succinate [Toprol Xl] 25 mg PO BID #60 tablet 09/21/18 01/08/19 Montelukast [Singulair] 10 mg PO QPM #30 tablet 09/21/18 01/08/19 Insulin Glargine [Lantus Solostar] 16 unit SUBQ BID 11/01/18 01/08/19 Sacubitril/Valsartan [Entresto 24 1 each PO BID #60 tablet 11/02/18 01/08/19 mg-26 mg Tablet] Furosemide 40 mg PO 0800,1200 12/08/18 01/08/19 Ipratropium/Albuterol Sulfate 3 ml INH QID 12/08/18 01/08/19 [Iprat-Albut 0.5-3(2.5) mg/3 ml] Lisinopril [Zestril] 2.5 mg PO BID 12/08/18 01/08/19 Losartan Potassium 50 mg PO DAILY 12/08/18 01/08/19 Magnesium Oxide 800 mg PO DAILY 12/08/18 01/08/19 Mecobal/Levomefolat Ca/B6 Phos 1 tab PO BID 12/08/18 01/08/19 [m-Gtxfrs-Q7-B12 Tablet] Spironolactone [Aldactone] 12.5 mg PO BID 12/08/18 01/08/19 Warfarin Sodium 5 mg PO DAILY 12/08/18 01/08/19 predniSONE [Deltasone] 40 mg PO DAILYWM #4 tablet 12/10/18 01/08/19 - Allergies Allergies/Adverse Reactions: Allergies Allergy/AdvReac Type Severity Reaction Status Date / Time No Known Drug Allergies Allergy Verified 01/08/19 23:30 - Social History Does the pt smoke?: No Smoking Status: Never smoker Does the pt drink ETOH?: No Does the pt have substance abuse?: No - Immunizations Immunizations are current?: Yes - POLST Patient has POLST: No POLST Status: DNR PD ED PE NORMAL - Vitals Vital signs reviewed: Yes - General General: Alert and oriented X 3, No acute distress - HEENT HEENT: PERRL, Moist mucous membranes - Neck Neck: Supple, no meningeal sign, Other (Trach in place) - Cardiac Cardiac: RRR, No murmur - Respiratory Respiratory: No respiratory distress, Clear bilaterally - Abdomen Abdomen: Normal bowel sounds, Soft, Non tender, Non distended - Derm Derm: Warm and dry - Extremities Extremities: Other (2+ pitting edema bilateral lower extremity. Small bullae on the right leg. Intact) - Neuro Neuro: Alert and oriented X 3 - Psych Psych: Normal mood, Normal affect Results - Vitals Vitals: Vital Signs - 24 hr 01/08/19 01/08/19 01/08/19 23:22 23:33 23:59 Temperature 36.3 C L Heart Rate 63 62 61 Respiratory 18 19 17 Rate Blood Pressure 113/56 L 114/64 114/54 L O2 Saturation 100 100 97 01/09/19 01/09/19 01:36 01:42 Temperature 36.6 C Heart Rate 63 71 Respiratory 20 18 Rate Blood Pressure 135/75 H 135/75 H O2 Saturation 98 99 Oxygen O2 Source [] trach O2 Source [] Mechanical ventilator O2 Source Room air - EKG (time done) 2325 Rate: Rate (enter#) (62) Rhythm: Other (atrial paced) Intervals: LBBB Compare to prior EKG: Unchanged from prior EKG - Labs Labs: Laboratory Tests 01/08/19 01/08/19 01/08/19 23:50 23:50 23:50 WBC 9.4 RBC 3.74 L Hgb 9.1 L Hct 30.6 L MCV 81.8 MCH 24.3 L MCHC 29.7 L RDW 20.6 H Plt Count 281 MPV 8.8 Neut # (Auto) 7.4 H Lymph # (Auto) 0.9 L [place] # (Auto) 0.8 Eos # (Auto) 0.2 Baso # (Auto) 0.1 Absolute Nucleated RBC 0.00 Nucleated RBC % 0.0 Manual Slide Review Indicated Platelet Estimate NORMAL (130-450,000) RBC Morph Micro Appear 1+ OVALOCYTES PT 33.3 H INR 3.0 H Sodium 138 Potassium 4.2 Chloride 104 Carbon Dioxide 23 Anion Gap 11.0 BUN 40 H Creatinine 1.8 H Estimated GFR (MDRD) 37 L Glucose 120 H Calcium 8.8 Total Bilirubin 0.2 AST 18 ALT 14 Alkaline Phosphatase 75 Total Protein 7.2 Albumin 3.3 Globulin 3.9 Albumin/Globulin Ratio 0.8 L Lipase 31 - Rads (name of study) cxr' Radiology: Prelim report reviewed, EMP read contemporaneously, See rad report (no acute disease) PD MEDICAL DECISION MAKING - ED course Complexity details: reviewed results, re-evaluated patient, considered differential, d/w patient ED course: Unclear etiology of his symptoms. NIH stroke scale is 0. No neurological deficits. No acute EKG findings. No acute lab abnormalities. We will continue supportive care and follow-up with his doctor. Patient counseled regarding signs and symptoms for which I believe and urgent re-evaluation would be necessary. Patient with good understanding of and agreement to plan and is comfortable going home at this time This document was made in part using voice recognition software. While efforts are made to proofread this document, sound alike and grammatical errors may occur. Departure - Departure Disposition: 01 Home, Self Care Clinical Impression: Light-headed feeling Condition: Good Instructions: ED Near Syncope Unkn Follow-Up: LISA MANUEL MD [Primary Care Provider] - Within 3 Days Comments: The cause of your symptoms is unclear today. Your laboratory testing does not reveal any abnormalities. Follow-up with your doctor for further care. Return if you worsen. Discharge Date/Time: 01/09/19 02:18
[2019-01-09 00:26] LABS: PLATELET ESTIMATE, MANUAL NORMAL (130-450,000) (NORMAL)
--- NOTE | 2019-01-09 00:49 | XRAY Report ---
Reason: cough, dizzy Procedure Date: 01/09/2019 Accession Number: [id number] / [id number] Procedure: XR - Chest 2 View X-Ray CPT Code: 65619 FULL RESULT: EXAM: CHEST RADIOGRAPHY EXAM DATE: 01/09/2019 12:39 AM. CLINICAL HISTORY: Cough, dizzy. COMPARISON: CHEST 2 VIEW 01/05/2019 11:10 AM, CHEST W/O 04/26/2017 2:31 PM. TECHNIQUE: 2 views. FINDINGS: Lungs/Pleura: No focal pneumonia or edema. Stable chronic small left pleural effusion with adjacent scarring. No increasing pleural effusion or pneumothorax. Mediastinum: Heart size borderline enlarged. No mediastinal shift. Other: Stable left pacemaker/AICD. Post median sternotomy. Stable tracheostomy. IMPRESSION: 1. No acute process seen in the chest. 2. Chronic small left pleural effusion with adjacent scarring. RAD[facility]
[2019-01-09] MEDS ORDERED: ACETAMINOPHEN 325 MG TABLET PO STA (01:17)
[2019-01-09 01:36] VITALS: BP 135/75
== END 2019-01-09 02:18 | disposition home or self-care (01) ==
LOC: EDUNIT# → ED 23:20
DX: R42 Dizziness and giddiness (principal); I44.7 Left bundle-branch block, unspecified; R23.8 Other skin changes; E11.9 Type 2 diabetes mellitus without complications; Z79.4 Long term (current) use of insulin; I50.9 Heart failure, unspecified; Z93.0 Tracheostomy status
CPT/HCPCS: 36415; 71046; 80053; 83690; 85025; 85610; 93005; 96360; 99284; A9270

== ENCOUNTER 2019-01-09 14:07 | Outpatient (CLI) | payer MEDICARE, OTHER | END 2019-01-09 14:08 | disposition home or self-care (01) | LOC: DI.N 14:07 | PROVIDERS: ATTEND Family Medicine | DX: R06.09 Other forms of dyspnea (principal) ==

== ENCOUNTER 2019-01-09 14:36 | Outpatient (CLI) | payer MEDICARE, OTHER ==
--- NOTE | 2019-01-11 02:29 | XRAY Report ---
Reason: BACK PAIN Procedure Date: 01/09/2019 Accession Number: [id number] / [id number] Procedure: XRN - Thoracic Spine 3 View CPT Code: FULL RESULT: EXAM: THORACIC SPINE RADIOGRAPHY EXAM DATE: 01/09/2019 03:36 PM. CLINICAL HISTORY: BACK PAIN. COMPARISON: CHEST 2 VIEW 01/09/2019 12:04 AM. TECHNIQUE: 2 views. FINDINGS: Alignment: Unremarkable. Bones: No fracture seen. Disks: Mild multilevel degenerative changes. Soft Tissues: Tracheostomy tube. Median sternotomy. Implanted pacemaker/defibrillator. Chronic left pleural effusion. IMPRESSION: 1. Degenerative changes. No acute thoracic spine abnormality seen. RADIA
--- NOTE | 2019-01-11 03:04 | XRAY Report ---
Reason: BACK PAIN Procedure Date: 01/09/2019 Accession Number: [id number] / [id number] Procedure: XRN - Lumbar Spine Complete CPT Code: FULL RESULT: EXAM: LUMBOSACRAL SPINE RADIOGRAPHY EXAM DATE: 01/09/2019 03:36 PM. CLINICAL HISTORY: Back pain. COMPARISONS: THORACIC SPINE 3 VIEW 01/09/2019 3:22 PM. TECHNIQUE: 5 views. FINDINGS: Alignment: Normal. No spondylolisthesis or scoliosis. Bones: Five [id number] lumbar vertebral bodies are present. No fractures or bone lesions. Decreased osseous mineralization subjectively. Disks: Mild multilevel degenerative disk disease throughout the lumbar spine. Facets: Mild to moderate facet joint arthropathy at L4-L5 and L5-S1. Sacroiliac Joints: Unremarkable. Soft Tissues: No significant focal lesions. Arthroscopic vascular calcifications. IMPRESSION: 1. Osteopenia. 2. No acute fractures or malalignment. 3. Mild multilevel degenerative disk disease of the lumbar spine. RADIA
== END 2019-01-09 14:37 | disposition home or self-care (01) ==
LOC: DI.N 14:36
PROVIDERS: ATTEND Family Medicine
DX: M47.814 Spondylosis without myelopathy or radiculopathy, thoracic region (principal); M51.36 Other intervertebral disc degeneration, lumbar region; M85.88 Other specified disorders of bone density and structure, other site; R06.09 Other forms of dyspnea
CPT/HCPCS: 72072; 72110

== ENCOUNTER 2019-01-16 13:38 | Outpatient (CLI) | payer MEDICARE, OTHER | END 2019-01-16 23:59 | disposition home or self-care (01) | LOC: LAB.N 13:38 | PROVIDERS: ATTEND Nurse Practitioner Gerontology | DX: I48.91 Unspecified atrial fibrillation (principal) | CPT/HCPCS: 85610 ==

== ENCOUNTER 2019-01-23 14:36 | Outpatient (CLI) | payer MEDICARE, OTHER ==
--- NOTE | 2019-01-24 11:58 | XRAY Report ---
Reason: cough Procedure Date: 01/23/2019 Accession Number: [id number] / [id number] Procedure: XRN - Chest 2 View X-Ray CPT Code: 35620 FULL RESULT: EXAM: CHEST RADIOGRAPHY EXAM DATE: 01/23/2019 03:25 PM. CLINICAL HISTORY: Cough.Current smoker. COMPARISON: THORACIC SPINE 3 VIEW 01/09/2019 3:22 PM CHEST 2 VIEW 01/09/2019 12:04 AM. TECHNIQUE: 2 views. FINDINGS: Lungs/Pleura: No change in small left pleural fluid collection with adjacent scarring. No new areas of consolidation detected bilaterally. Mediastinum: Previous median sternotomy. Heart size stable and borderline enlarged. Tracheostomy appears in good position. Cardiac pacer left chest. Other: None. IMPRESSION: Chronic small left pleural fluid collection and scarring. No acute consolidations identified. RADIA
== END 2019-01-23 14:37 | disposition home or self-care (01) ==
LOC: DI.N 14:36
PROVIDERS: ATTEND Family Medicine
DX: J81.1 Chronic pulmonary edema (principal); F17.200 Nicotine dependence, unspecified, uncomplicated
CPT/HCPCS: 71046

== ENCOUNTER 2019-01-24 15:45 | Outpatient (CLI) | payer MEDICARE, OTHER | END 2019-01-24 23:59 | disposition home or self-care (01) | LOC: LAB.N 15:45 | PROVIDERS: ATTEND Nurse Practitioner Gerontology | DX: I48.91 Unspecified atrial fibrillation (principal) | CPT/HCPCS: 85610 ==

== ENCOUNTER 2019-01-27 08:00 | Outpatient (CLI) | payer MEDICARE, OTHER | END 2019-01-27 23:59 | disposition home or self-care (01) | LOC: LAB.N 08:00 | PROVIDERS: ATTEND Nurse Practitioner Gerontology | DX: I48.91 Unspecified atrial fibrillation (principal) | CPT/HCPCS: 85610 ==

== ENCOUNTER 2019-01-29 08:00 | Outpatient (CLI) | payer MEDICARE, OTHER | END 2019-01-29 23:59 | disposition home or self-care (01) | LOC: LAB.N 08:00 | PROVIDERS: ATTEND Nurse Practitioner Gerontology | DX: I48.91 Unspecified atrial fibrillation (principal) | CPT/HCPCS: 85610 ==

== ENCOUNTER 2019-02-06 08:00 | Outpatient (CLI) | payer MEDICARE, OTHER | END 2019-02-06 23:59 | disposition home or self-care (01) | LOC: LAB.N 08:00 | PROVIDERS: ATTEND Nurse Practitioner Gerontology | DX: I48.91 Unspecified atrial fibrillation (principal) | CPT/HCPCS: 85610 ==

== ENCOUNTER 2019-02-10 08:00 | Outpatient (CLI) | payer MEDICARE, OTHER | END 2019-02-10 23:59 | disposition home or self-care (01) | LOC: LAB.N 08:00 | PROVIDERS: ATTEND Nurse Practitioner Gerontology | DX: I48.91 Unspecified atrial fibrillation (principal) | CPT/HCPCS: 85610 ==

== ENCOUNTER 2019-02-17 08:00 | Outpatient (CLI) | payer MEDICARE, OTHER | END 2019-02-17 23:59 | disposition home or self-care (01) | LOC: LAB.N 08:00 | PROVIDERS: ATTEND Nurse Practitioner Gerontology | DX: I48.91 Unspecified atrial fibrillation (principal) | CPT/HCPCS: 85610 ==

== ENCOUNTER 2019-02-26 12:44 | Outpatient (CLI) | payer MEDICARE, OTHER | END 2019-02-26 23:59 | disposition home or self-care (01) | LOC: LAB.N 12:44 | PROVIDERS: ATTEND Nurse Practitioner Gerontology | DX: Z79.01 Long term (current) use of anticoagulants (principal) | CPT/HCPCS: 85610 ==

== ENCOUNTER 2019-03-05 08:00 | Outpatient (CLI) | payer MEDICARE, OTHER | END 2019-03-05 23:59 | disposition home or self-care (01) | LOC: LAB.N 08:00 | PROVIDERS: ATTEND Nurse Practitioner Gerontology | DX: I48.91 Unspecified atrial fibrillation (principal) | CPT/HCPCS: 85610 ==

== ENCOUNTER 2019-03-05 14:35 | Outpatient (CLI) | payer MEDICARE, OTHER ==
--- NOTE | 2019-03-05 15:32 | XRAY Report ---
Reason: cough Procedure Date: 03/05/2019 Accession Number: [id number] / [id number] Procedure: XRN - Chest 2 View X-Ray CPT Code: 66925 FULL RESULT: EXAM: CHEST RADIOGRAPHY EXAM DATE: 03/05/2019 03:01 PM. CLINICAL HISTORY: Cough. COMPARISON: CHEST 2 VIEW 01/23/2019 3:29 PM. TECHNIQUE: 2 views. FINDINGS: Lungs/Pleura: Again seen is a small left pleural effusion with underlying consolidation difficult to exclude, the appearance is similar to the previous examination. Right lung is clear. No pneumothorax. Mediastinum: Heart and mediastinal contours are stable with subtle calcifications of the aortic arch, borderline cardiomegaly. Other: Tracheostomy tube is again noted. Pacemaker appears unchanged in configuration. Median sternotomy wires are redemonstrated. IMPRESSION: Stable exam with persistent left pleural effusion and left basilar opacities. RADIA
== END 2019-03-05 14:36 | disposition home or self-care (01) ==
LOC: DI.N 14:35
PROVIDERS: ATTEND Family Medicine
DX: J90 Pleural effusion, not elsewhere classified (principal); R91.8 Other nonspecific abnormal finding of lung field; I48.91 Unspecified atrial fibrillation
CPT/HCPCS: 71046; 85610

== ENCOUNTER 2019-03-13 15:30 | Outpatient (CLI) | payer MEDICARE, OTHER | END 2019-03-13 15:31 | disposition home or self-care (01) | LOC: LAB.N 15:30 | PROVIDERS: ATTEND Nurse Practitioner Gerontology | DX: I48.91 Unspecified atrial fibrillation (principal) | CPT/HCPCS: 85610 ==

== ENCOUNTER 2019-03-14 15:31 | Outpatient (CLI) | payer MEDICARE, OTHER | END 2019-03-14 23:59 | disposition home or self-care (01) | LOC: LAB.N 15:31 | PROVIDERS: ATTEND Nurse Practitioner Gerontology | DX: I48.91 Unspecified atrial fibrillation (principal) | CPT/HCPCS: 85610 ==

== ENCOUNTER 2019-03-17 08:00 | Outpatient (CLI) | payer MEDICARE, OTHER | END 2019-03-17 08:01 | disposition home or self-care (01) | LOC: LAB.N 08:00 | PROVIDERS: ATTEND Nurse Practitioner Gerontology | DX: I48.91 Unspecified atrial fibrillation (principal) | CPT/HCPCS: 85610 ==

== ENCOUNTER 2019-03-26 08:00 | Outpatient (CLI) | payer MEDICARE, OTHER | END 2019-03-26 23:59 | disposition home or self-care (01) | LOC: LAB.N 08:00 | PROVIDERS: ATTEND Nurse Practitioner Gerontology | DX: I48.91 Unspecified atrial fibrillation (principal) | CPT/HCPCS: 85610 ==

== ENCOUNTER 2019-04-01 13:55 | Outpatient (CLI) | payer MEDICARE, OTHER | END 2019-04-01 23:59 | disposition home or self-care (01) | LOC: LAB.N 13:55 | PROVIDERS: ATTEND Nurse Practitioner Gerontology | DX: I48.91 Unspecified atrial fibrillation (principal) | CPT/HCPCS: 85610 ==

== ENCOUNTER 2019-04-08 13:59 | Outpatient (CLI) | payer MEDICARE, OTHER | END 2019-04-08 23:59 | disposition home or self-care (01) | LOC: LAB.N 13:59 | PROVIDERS: ATTEND Nurse Practitioner Gerontology | DX: I48.91 Unspecified atrial fibrillation (principal); Z79.01 Long term (current) use of anticoagulants | CPT/HCPCS: 85610 ==

== ENCOUNTER 2019-04-15 14:04 | Outpatient (CLI) | payer MEDICARE, OTHER ==
[2019-04-15 18:45] LABS: HGB - HEMOGLOBIN 9.8 g/dL (14.0-18.0); MEAN CORPUSCULAR HEMOGLOBIN 24.6 pg (27.0-31.0); MEAN CORPUSCULAR HGB CONC 29.3 g/dL (32.0-36.0); MEAN CORPUSCULAR VOLUME 84.2 fL (80.0-94.0); MEAN PLATELET VOLUME 9.9 fL (7.4-11.4); RED BLOOD COUNT 3.98 10^6/uL (4.70-6.10); RED CELL DISTRIBUTION WIDTH 15.6 % (12.0-15.0); WHITE BLOOD COUNT 10.9 x10^3/uL (4.8-10.8)
[2019-04-15 18:59] LABS: CALCIUM 8.7 mg/dL (8.5-10.3); CREATININE 1.3 mg/dL (0.6-1.2)
== END 2019-04-15 23:59 | disposition home or self-care (01) ==
LOC: LAB.N 14:04
PROVIDERS: ATTEND Nurse Practitioner Gerontology
DX: I48.91 Unspecified atrial fibrillation (principal); J90 Pleural effusion, not elsewhere classified; R06.00 Dyspnea, unspecified
CPT/HCPCS: 36415; 80048; 83880; 85027; 85610

== ENCOUNTER 2019-04-25 09:29 | Outpatient (CLI) | payer MEDICARE, OTHER | END 2019-04-25 23:59 | disposition home or self-care (01) | LOC: LAB.N 09:29 | PROVIDERS: ATTEND Nurse Practitioner Gerontology | DX: I48.91 Unspecified atrial fibrillation (principal) | CPT/HCPCS: 85610 ==

== ENCOUNTER 2019-04-25 18:57 | Outpatient (CLI) | payer MEDICARE, OTHER | END 2019-04-25 18:58 | disposition critical access hospital (66) | LOC: EMS 18:57 | PROVIDERS: ATTEND Surgery | DX: R68.83 Chills (without fever) (principal); R53.1 Weakness | CPT/HCPCS: A0425; A0429 ==

== ENCOUNTER 2019-04-25 19:00 | Emergency (ER) | payer MEDICARE, OTHER ==
--- NOTE | 2019-04-25 19:13 | ED Physician Documentation ---
History of Present Illness - Stated complaint Stated Complaint: CHILLS/TREMORS - Chief complaint Chief Complaint: General - History obtained from History obtained from: Patient - History of Present Illness Timing: Other (73-year-old gentleman with history of coronary disease, laryngeal cancer with tracheostomy presents with shaking chills that started several hours ago. He is anticoagulated. He does have a cough. Denies urinary complaints. Feels slightly weak.) Review of Systems Ten Systems: 10 systems reviewed and negative Constitutional: reports: Chills, Fatigue Throat: denies: Sore throat Cardiac: denies: Chest pain / pressure, Palpitations Respiratory: reports: Cough. denies: Dyspnea GI: denies: Abdominal Pain PD PAST MEDICAL HISTORY - Past Medical History Cardiovascular: Congestive heart failure Respiratory: COPD, Other Neuro: None Endocrine/Autoimmune: Type 2 diabetes GI: GERD : None HEENT: Other Psych: None Musculoskeletal: Osteoarthritis Derm: None, Other drug resistant infections - Past Surgical History Past Surgical History: Yes General: Other Cardiovascular: CABG HEENT: Cataracts, Tracheostomy - Present Medications Home Medications: Ambulatory Orders Medication Instructions Recorded Confirmed Tamsulosin [Flomax] 0.4 mg PO DAILY #30 capsule 06/21/18 01/08/19 Amiodarone HCl 200 mg PO DAILY 09/18/18 01/08/19 Fluticasone/Salmeterol [Advair Hfa 2 puffs INH BID 09/18/18 01/08/19 230-21 Mcg Inhaler] SITagliptin [Januvia] 100 mg PO DAILY 09/18/18 01/08/19 Trazodone HCl 100 mg PO QPM PRN 09/18/18 01/08/19 glipiZIDE [Glipizide] 20 mg PO 0730,1630 09/18/18 01/08/19 Metoprolol Succinate [Toprol Xl] 25 mg PO BID #60 tablet 09/21/18 01/08/19 Montelukast [Singulair] 10 mg PO QPM #30 tablet 09/21/18 01/08/19 Insulin Glargine [Lantus Solostar] 16 unit SUBQ BID 11/01/18 01/08/19 Sacubitril/Valsartan [Entresto 24 1 each PO BID #60 tablet 11/02/18 01/08/19 mg-26 mg Tablet] Furosemide 40 mg PO 0800,1200 12/08/18 01/08/19 Ipratropium/Albuterol Sulfate 3 ml INH QID 12/08/18 01/08/19 [Iprat-Albut 0.5-3(2.5) mg/3 ml] Lisinopril [Zestril] 2.5 mg PO BID 12/08/18 01/08/19 Losartan Potassium 50 mg PO DAILY 12/08/18 01/08/19 Magnesium Oxide 800 mg PO DAILY 12/08/18 01/08/19 Mecobal/Levomefolat Ca/B6 Phos 1 tab PO BID 12/08/18 01/08/19 [c-Iujhry-F4-B12 Tablet] Spironolactone [Aldactone] 12.5 mg PO BID 12/08/18 01/08/19 Warfarin Sodium 5 mg PO DAILY 12/08/18 01/08/19 predniSONE [Deltasone] 40 mg PO DAILYWM #4 tablet 12/10/18 01/08/19 - Allergies Allergies/Adverse Reactions: Allergies Allergy/AdvReac Type Severity Reaction Status Date / Time No Known Drug Allergies Allergy Verified 04/25/19 19:07 - Social History Does the pt smoke?: No Smoking Status: Never smoker Does the pt drink ETOH?: No Does the pt have substance abuse?: No - Immunizations Immunizations are current?: Yes - POLST Patient has POLST: No POLST Status: DNR PD ED PE NORMAL - Vitals Vital signs reviewed: Yes - General General: Alert and oriented X 3, No acute distress, Other (Well-appearing gentleman with tracheostomy in place in no distress) - HEENT HEENT: PERRL, EOMI - Neck Neck: Supple, no meningeal sign, No bony TTP - Respiratory Respiratory: No respiratory distress, Other (Rhonchorous bilaterally) - Abdomen Abdomen: Non tender - Back Back: No CVA TTP, No spinal TTP - Derm Derm: Normal color, Warm and dry - Neuro Neuro: Alert and oriented X 3, Normal speech Results - Vitals Vitals: Vital Signs - 24 hr 04/25/19 04/25/19 19:07 19:17 Temperature 36.6 C Heart Rate 93 99 Respiratory 20 22 Rate Blood Pressure 130/100 H 136/106 H O2 Saturation 100 99 Oxygen O2 Source [Without Activity] trach O2 Source [With Activity] Mechanical ventilator O2 Source Nasal cannula - Labs Labs: Laboratory Tests 04/25/19 04/25/19 04/25/19 19:24 19:24 19:24 WBC 9.3 RBC 3.93 L Hgb 9.8 L Hct 33.0 L MCV 84.0 MCH 24.9 L MCHC 29.7 L RDW 15.3 H Plt Count 439 MPV 9.4 Neut # (Auto) 6.9 H Lymph # (Auto) 1.1 L [place] # (Auto) 0.8 Eos # (Auto) 0.4 Baso # (Auto) 0.1 Absolute Nucleated RBC 0.00 Nucleated RBC % 0.0 PT INR Sodium 140 Potassium 2.8 L Chloride 96 L Carbon Dioxide 30 Anion Gap 14.0 H BUN 27 H Creatinine 1.2 Estimated GFR (MDRD) 59 L Glucose 194 H Lactic Acid 1.7 Calcium 8.7 Total Bilirubin 0.2 AST 26 ALT 20 Alkaline Phosphatase 80 Total Protein 7.3 Albumin 3.6 Globulin 3.7 Albumin/Globulin Ratio 1.0 Lipase 32 Urine Color Urine Clarity Urine pH Ur Specific [place] Urine Protein Urine Glucose (UA) Urine Ketones Urine Occult Blood Urine Nitrite Urine Bilirubin Urine Urobilinogen Ur Leukocyte Esterase Ur Microscopic Review Urine Culture Comments 04/25/19 04/25/19 19:24 20:32 WBC RBC Hgb Hct MCV MCH MCHC RDW Plt Count MPV Neut # (Auto) Lymph # (Auto) [place] # (Auto) Eos # (Auto) Baso # (Auto) Absolute Nucleated RBC Nucleated RBC % PT 17.0 H INR 1.5 H Sodium Potassium Chloride Carbon Dioxide Anion Gap BUN Creatinine Estimated GFR (MDRD) Glucose Lactic Acid Calcium Total Bilirubin AST ALT Alkaline Phosphatase Total Protein Albumin Globulin Albumin/Globulin Ratio Lipase Urine Color YELLOW Urine Clarity CLEAR Urine pH 6.0 Ur Specific [place] 1.010 Urine Protein NEGATIVE Urine Glucose (UA) 100 H Urine Ketones NEGATIVE Urine Occult Blood NEGATIVE Urine Nitrite NEGATIVE Urine Bilirubin NEGATIVE Urine Urobilinogen 0.2 (NORMAL) Ur Leukocyte Esterase NEGATIVE Ur Microscopic Review NOT INDICATED Urine Culture Comments NOT INDICATED PD MEDICAL DECISION MAKING - ED course ED course: 73-year-old gentleman presents with chills. However his vital sign and exam are unremarkable. Work-up demonstrates a low potassium, stable anemia, and stable chest x-ray with a loculated posterior effusion but again that is stable. No acute findings to necessitate antibiotic use. Departure - Departure Disposition: Home, Self Care Clinical Impression: Hypokalemia, Chills (without fever) COPD (chronic obstructive pulmonary disease) Qualifiers: COPD type: unspecified COPD Qualified Code(s): J44.9 - Chronic obstructive pulmonary disease, unspecified Condition: Good Record reviewed to determine appropriate education?: Yes Instructions: Hypokalemia Dc Comments: The cause of your chills today is unclear. Your work-up demonstrates a low pot assium which we gave you some, otherwise was pretty negative with only chronic anemia and chronic findings on your x-ray. Please return for new or worsening symptoms. Follow-up with your doctor Sunday or Sunday for recheck.
[2019-04-25 19:36] LABS: BASOPHILS # (AUTO) 0.1 10^3/uL (0.0-0.1); BASOPHILS % (AUTO) 1.1 %; EOSINOPHILS # (AUTO) 0.4 10^3/uL (0.0-0.7); EOSINOPHILS % (AUTO) 3.8 %; HGB - HEMOGLOBIN 9.8 g/dL (14.0-18.0); LYMPHOCYTES # (AUTO) 1.1 10^3/uL (1.5-3.5); LYMPHOCYTES % (AUTO) 11.5 %; MEAN CORPUSCULAR HEMOGLOBIN 24.9 pg (27.0-31.0); MEAN CORPUSCULAR HGB CONC 29.7 g/dL (32.0-36.0); MEAN PLATELET VOLUME 9.4 fL (7.4-11.4); MONOCYTES # (AUTO) 0.8 10^3/uL (0.0-1.0); MONOCYTES % (AUTO) 8.6 %; NEUTROPHILS # (AUTO) 6.9 10^3/uL (1.5-6.6); NEUTROPHILS % (AUTO) 74.6 %; PLT - PLATELET COUNT 439 10^3/uL (130-450); RED BLOOD COUNT 3.93 10^6/uL (4.70-6.10); RED CELL DISTRIBUTION WIDTH 15.3 % (12.0-15.0); WHITE BLOOD COUNT 9.3 x10^3/uL (4.8-10.8)
[2019-04-25 19:40] LABS: INR 1.5 (0.8-1.2)
[2019-04-25 19:46] LABS: ALBUMIN 3.6 g/dL (3.2-5.5); BILIRUBIN,TOTAL 0.2 mg/dL (0.2-1.0); CALCIUM 8.7 mg/dL (8.5-10.3); CREATININE 1.2 mg/dL (0.6-1.2); TOTAL PROTEIN 7.3 g/dL (6.7-8.2)
[2019-04-25] MEDS ORDERED: POTASSIUM CHLORIDE 20 MEQ TABLET PO STA (20:03)
--- NOTE | 2019-04-25 20:08 | XRAY Report ---
Reason: COUGH FEVER Procedure Date: 04/25/2019 Accession Number: [id number] / [id number] Procedure: XR - Chest 2 View X-Ray CPT Code: 91775 Final Report FULL RESULT: EXAM: CHEST RADIOGRAPHY EXAM DATE: 04/25/2019 07:34 PM. CLINICAL HISTORY: COUGH FEVER. COMPARISON: CHEST 2 VIEW 03/05/2019 3:06 PM CHEST W/O 04/26/2017 2:31 PM. TECHNIQUE: 2 views. FINDINGS: Tracheostomy, cardiomegaly and pacemaker again noted. Small left pleural effusion with portions loculated posteriorly, appears unchanged. Mild left base atelectasis or scarring, unchanged. No pneumothorax. Sternotomy wires. IMPRESSION: Tracheostomy, cardiomegaly and pacemaker again noted. Small left pleural effusion with portions loculated posteriorly, appears unchanged. No new findings are seen. RADIA
[2019-04-25 20:41] LABS: BILIRUBIN,URINE NEGATIVE (NEGATIVE); GLUCOSE, URINE (UA) 100 mg/dL (NEGATIVE); KETONES,URINE (UA) NEGATIVE (NEGATIVE); LEUKOCYTE ESTERASE, URINE NEGATIVE (NEGATIVE); NITRITE,URINE NEGATIVE (NEGATIVE); OCCULT BLOOD,URINE NEGATIVE (NEGATIVE); PROTEIN,URINE NEGATIVE (NEGATIVE); UROBILINOGEN,URINE 0.2 (NORMAL) E.U./dL (NORMAL)
[2019-04-25 20:52] LABS: CLARITY,URINE CLEAR (CLEAR)
[2019-04-25 21:20] VITALS: BP 128/100
== END 2019-04-25 21:20 | disposition home or self-care (01) ==
LOC: EDUNIT# → ED 19:00
DX: E87.6 Hypokalemia (principal); R68.83 Chills (without fever); J44.9 Chronic obstructive pulmonary disease, unspecified; J90 Pleural effusion, not elsewhere classified; D64.9 Anemia, unspecified; Z79.01 Long term (current) use of anticoagulants; I48.91 Unspecified atrial fibrillation; E11.9 Type 2 diabetes mellitus without complications; Z79.4 Long term (current) use of insulin; I50.9 Heart failure, unspecified; I25.10 Atherosclerotic heart disease of native coronary artery without angina pectoris; Z95.1 Presence of aortocoronary bypass graft; Z85.21 Personal history of malignant neoplasm of larynx; Z93.0 Tracheostomy status; Z66 Do not resuscitate
CPT/HCPCS: 36415; 51701; 71046; 80053; 81003; 83605; 83690; 85025; 85610; 87040; 99283; 99284; A9270; 81001; 87086

== ENCOUNTER 2019-05-07 09:24 | Outpatient (CLI) | payer MEDICARE, OTHER ==
--- NOTE | 2019-05-08 09:40 | CT Report ---
Reason: LT PLEURAL EFFUSION Procedure Date: 05/07/2019 Accession Number: [id number] / [id number] Procedure: CT - CHEST WO CPT Code: Final Report FULL RESULT: EXAM: CT CHEST EXAM DATE: 05/07/2019 09:39 AM. CLINICAL HISTORY: Follow-up LT PLEURAL EFFUSION. COMPARISONS: CHEST W/O 04/26/2017 2:31 PM. TECHNIQUE: Routine helical CT imaging was performed through the chest. IV contrast: None. Reconstructions: Coronal and sagittal. In accordance with CT protocol optimization, one or more of the following dose reduction techniques were utilized for this exam: automated exposure control, adjustment of mA and/or KV based on patient size, or use of iterative reconstructive technique. FINDINGS: Lungs/Pleura: Moderate upper lung predominant centrilobular emphysema noted. Unchanged small left base pleural effusion with associated mild pleural thickening. Adjacent linear consolidation is mildly increased compared to prior which could reflect increasing atelectasis. Linear scarring is noted at the right base. No other focal airspace consolidation. No right pleural effusion. No pneumothorax. Mediastinum: Stable heart size. No pericardial effusion. Severe coronary artery calcifications noted. No new pathologically enlarged mediastinal or hilar lymph nodes. Tracheostomy tube is in expected position. Bones: Osteopenia. Degenerative changes in the thoracic spine. No focal suspicious osseous lesions. Visualized Abdomen: Unremarkable. Other: None. IMPRESSION: 1. Unchanged small left basal pleural effusion with associated basilar pleural thickening. 2. Adjacent linear airspace consolidation at the left base is mildly increased compared to prior which may reflect increasing atelectasis. Other underlying pulmonary process such as infection is not entirely excluded. Correlation with patient's symptoms is recommended. 3. No new suspicious right-sided consolidation nor new right pleural effusion. 4. No new mediastinal or hilar lymphadenopathy. RADIA
== END 2019-05-07 09:25 | disposition home or self-care (01) ==
LOC: DI 09:24
PROVIDERS: ATTEND Family Medicine
DX: J90 Pleural effusion, not elsewhere classified (principal)
CPT/HCPCS: 71250

== ENCOUNTER 2019-05-09 13:11 | Outpatient (CLI) | payer MEDICARE, OTHER | END 2019-05-09 23:59 | disposition home or self-care (01) | LOC: LAB.N 13:11 | PROVIDERS: ATTEND Nurse Practitioner Gerontology | DX: I48.91 Unspecified atrial fibrillation (principal) | CPT/HCPCS: 85610 ==

== ENCOUNTER 2019-05-16 08:00 | Outpatient (CLI) | payer MEDICARE, OTHER | END 2019-05-16 23:59 | LOC: LAB.N 08:00 | PROVIDERS: ATTEND Nurse Practitioner Gerontology | DX: I48.91 Unspecified atrial fibrillation (principal) | CPT/HCPCS: 85610 ==

== ENCOUNTER 2019-05-30 08:00 | Outpatient (CLI) | payer MEDICARE, OTHER | END 2019-05-30 23:59 | disposition home or self-care (01) | LOC: LAB.N 08:00 | PROVIDERS: ATTEND Nurse Practitioner Gerontology | DX: I48.91 Unspecified atrial fibrillation (principal) | CPT/HCPCS: 85610 ==

== ENCOUNTER 2019-06-13 14:41 | Outpatient (CLI) | payer MEDICARE, OTHER ==
--- NOTE | 2019-06-14 16:18 | XRAY Report ---
Reason: L pleural effusion Procedure Date: 06/13/2019 Accession Number: [id number] / [id number] Procedure: XRN - Chest 2 View X-Ray CPT Code: 19697 Final Report FULL RESULT: EXAM: CHEST RADIOGRAPHY EXAM DATE: 06/13/2019 03:03 PM. CLINICAL HISTORY: L pleural effusion. COMPARISON: Chest radiograph from 04/25/2019, 12/31/2018; CT chest from 05/07/2019. TECHNIQUE: 2 views. FINDINGS: Lungs/Pleura: Lung volumes are large, and there is flattening of the hemidiaphragms on lateral view. Mild diffuse interstitial prominence is present. There has been no significant change in small left pleural effusion. No right pleural effusion. No pneumothorax. Mediastinum: There is mild enlargement of the cardiac silhouette. Mediastinal contour is within normal limits. Pulmonary vasculature is engorged, and there is peribronchial cuffing. Other: Generator overlies the left chest with leads in the right atrium and right ventricle. Tracheostomy in place. Sternal wires are intact. IMPRESSION: 1. No significant change in small left pleural effusion. This may be loculated given associated pleural thickening on previous CT. 2. Findings suggestive of mild CHF/fluid overload. 3. Pulmonary hyperinflation, compatible with underlying emphysema. RADIA
== END 2019-06-13 14:42 | disposition home or self-care (01) ==
LOC: DI.N 14:41
PROVIDERS: ATTEND Family Medicine
DX: J90 Pleural effusion, not elsewhere classified (principal); R05 Cough; I48.91 Unspecified atrial fibrillation
CPT/HCPCS: 71046; 85610

== ENCOUNTER 2019-06-13 14:54 | Outpatient (CLI) | payer MEDICARE, OTHER | END 2019-06-13 23:59 | disposition home or self-care (01) | LOC: LAB.N 14:54 | PROVIDERS: ATTEND Nurse Practitioner Gerontology | DX: I48.91 Unspecified atrial fibrillation (principal) | CPT/HCPCS: 85610 ==

== ENCOUNTER 2019-06-20 10:23 | Outpatient (CLI) | payer MEDICARE, OTHER | END 2019-06-20 23:59 | disposition home or self-care (01) | LOC: LAB.N 10:23 | PROVIDERS: ATTEND Nurse Practitioner Gerontology | DX: I48.91 Unspecified atrial fibrillation (principal) | CPT/HCPCS: 85610 ==

== ENCOUNTER 2019-07-17 14:04 | Outpatient (CLI) | payer MEDICARE, OTHER ==
--- NOTE | 2019-07-18 11:17 | XRAY Report ---
Reason: dyspnea on exertion Procedure Date: 07/17/2019 Accession Number: [id number] / [id number] Procedure: XRN - Chest 2 View X-Ray CPT Code: 62927 Final Report FULL RESULT: EXAM: CHEST RADIOGRAPHY EXAM DATE: 07/17/2019 02:25 PM. CLINICAL HISTORY: Dyspnea on exertion. COMPARISON: CHEST 2 VIEW 06/13/2019 3:01 PM CHEST W/O 05/07/2019 9:35 AM. TECHNIQUE: 2 views. FINDINGS: Lungs/Pleura: Left costophrenic angle blunting compatible with small pleural effusion. Mildly coarse interstitial markings in patient with known COPD. Mediastinum: Atherosclerotic aortic calcification. Borderline prominent cardiac silhouette. Other: Left subclavian AICD. Tracheostomy tube tip along level of inferior clavicles. Thoracic spine degenerative changes. IMPRESSION: 1. Small left pleural effusion with adjacent basilar atelectasis. 2. COPD. RADIA
== END 2019-07-17 14:05 | disposition home or self-care (01) ==
LOC: DI.N 14:04
PROVIDERS: ATTEND Family Medicine
DX: J90 Pleural effusion, not elsewhere classified (principal); J44.9 Chronic obstructive pulmonary disease, unspecified
CPT/HCPCS: 71046

== ENCOUNTER 2019-07-17 14:45 | Outpatient (CLI) | payer MEDICARE, OTHER ==
[2019-07-17 18:42] LABS: BASOPHILS # (AUTO) 0.1 10^3/uL (0.0-0.1); BASOPHILS % (AUTO) 1.1 %; EOSINOPHILS # (AUTO) 0.4 10^3/uL (0.0-0.7); EOSINOPHILS % (AUTO) 4.3 %; HGB - HEMOGLOBIN 9.3 g/dL (14.0-18.0); LYMPHOCYTES # (AUTO) 1.3 10^3/uL (1.5-3.5); MEAN CORPUSCULAR HEMOGLOBIN 22.4 pg (27.0-31.0); MEAN CORPUSCULAR HGB CONC 28.4 g/dL (32.0-36.0); MEAN CORPUSCULAR VOLUME 78.8 fL (80.0-94.0); MONOCYTES # (AUTO) 0.6 10^3/uL (0.0-1.0); MONOCYTES % (AUTO) 7.5 %; NEUTROPHILS # (AUTO) 5.9 10^3/uL (1.5-6.6); NEUTROPHILS % (AUTO) 70.6 %; PLT - PLATELET COUNT 376 10^3/uL (130-450); RED BLOOD COUNT 4.16 10^6/uL (4.70-6.10); RED CELL DISTRIBUTION WIDTH 19.8 % (12.0-15.0); WHITE BLOOD COUNT 8.4 x10^3/uL (4.8-10.8)
[2019-07-17 19:00] LABS: CALCIUM 8.5 mg/dL (8.5-10.3); CREATININE 1.6 mg/dL (0.6-1.2)
== END 2019-07-17 23:59 | disposition home or self-care (01) ==
LOC: LAB.N 14:45
PROVIDERS: ATTEND Family Medicine
DX: R06.09 Other forms of dyspnea (principal); Z79.01 Long term (current) use of anticoagulants
CPT/HCPCS: 36415; 80048; 83880; 85025; 85610

== ENCOUNTER 2019-07-29 04:12 | Outpatient (CLI) | payer MEDICARE, OTHER | END 2019-07-29 04:13 | disposition critical access hospital (66) | LOC: EMS 04:12 | PROVIDERS: ATTEND Surgery | DX: R06.02 Shortness of breath (principal); R53.1 Weakness | CPT/HCPCS: A0425; A0427 ==

== ENCOUNTER 2019-07-29 04:32 | Emergency (ER) | payer MEDICARE, OTHER ==
--- NOTE | 2019-07-29 04:57 | ED Physician Documentation ---
History of Present Illness - Stated complaint Stated Complaint: SOA - Additonal information Additional information: This is a 73-year-old male with a history of heart failure, COPD, CKD stage III, type 2 diabetes on insulin, paroxysmal atrial fibrillation, who is brought in [facility] due to shortness of breath and hypoglycemia. Patient states that he has been having some general malaise over the last several days, and today he developed some gradually increasing shortness of breath, he himself DuoNeb at home 45 minutes ago and had temporary improvement, but then his shortness of breath worsened so EMS was called, they found him awake and alert but his blood glucose was 28 so they gave him 125 mL of D10. He denies chest pain, he has had a cough. He has a history of a tracheostomy due to laryngeal cancer. He denies any fever but states she also has not been measuring his temperature. No vomiting or diarrhea. Echocardiogram on 11/01/2018 shows ejection fraction 25% with cor pulmonale, mild aortic stenosis and regurgitation, mild to moderate mitral regurgitation Review of Systems Constitutional: denies: Fever Nose: denies: Rhinorrhea / runny nose Cardiac: denies: Chest pain / pressure Respiratory: reports: Dyspnea GI: denies: Abdominal Pain : denies: Dysuria Skin: denies: Rash Musculoskeletal: denies: Neck pain Neurologic: reports: Generalized weakness PD PAST MEDICAL HISTORY - Past Medical History Cardiovascular: Congestive heart failure, Hypertension Respiratory: COPD, Other Neuro: None Endocrine/Autoimmune: Type 2 diabetes GI: GERD : None HEENT: Other Psych: None Musculoskeletal: Osteoarthritis Derm: None, Other drug resistant infections - Past Surgical History Past Surgical History: Yes General: Other Cardiovascular: CABG HEENT: Cataracts, Tracheostomy - Present Medications Home Medications: Ambulatory Orders Medication Instructions Recorded Confirmed Tamsulosin [Flomax] 0.4 mg PO DAILY #30 capsule 06/21/18 05/27/19 Amiodarone HCl 200 mg PO DAILY 09/18/18 05/27/19 Fluticasone/Salmeterol [Advair Hfa 2 puffs INH BID 09/18/18 05/27/19 230-21 Mcg Inhaler] SITagliptin [Januvia] 100 mg PO DAILY 09/18/18 05/27/19 Trazodone HCl 100 mg PO QPM PRN 09/18/18 05/27/19 glipiZIDE [Glipizide] 20 mg PO 0730,1630 09/18/18 05/27/19 Metoprolol Succinate [Toprol Xl] 25 mg PO BID #60 tablet 09/21/18 05/27/19 Montelukast [Singulair] 10 mg PO QPM #30 tablet 09/21/18 05/27/19 Insulin Glargine [Lantus Solostar] 16 unit SUBQ BID 11/01/18 05/27/19 Sacubitril/Valsartan [Entresto 24 1 each PO BID #60 tablet 11/02/18 05/27/19 mg-26 mg Tablet] Furosemide 40 mg PO 0800,1200 12/08/18 05/27/19 Ipratropium/Albuterol Sulfate 3 ml INH QID 12/08/18 05/27/19 [Iprat-Albut 0.5-3(2.5) mg/3 ml] Losartan Potassium 50 mg PO DAILY 12/08/18 05/27/19 Magnesium Oxide 800 mg PO DAILY 12/08/18 05/27/19 Mecobal/Levomefolat Ca/B6 Phos 1 tab PO BID 12/08/18 05/27/19 [s-Lyrd[place]-Q5-B12 Tablet] Spironolactone [Aldactone] 12.5 mg PO BID 12/08/18 05/27/19 Warfarin Sodium 5 mg PO DAILY 12/08/18 05/27/19 lisinopriL [Zestril] 2.5 mg PO BID 12/08/18 05/27/19 predniSONE [Deltasone] 40 mg PO DAILYWM #4 tablet 12/10/18 05/27/19 - Allergies Allergies/Adverse Reactions: Allergies Allergy/AdvReac Type Severity Reaction Status Date / Time No Known Drug Allergies Allergy Verified 05/27/19 10:37 - Social History Does the pt smoke?: No Smoking Status: Current every day smoker Does the pt drink ETOH?: No Does the pt have substance abuse?: No - Immunizations Immunizations are current?: Yes - POLST Patient has POLST: No POLST Status: DNR PD ED PE NORMAL - Vitals Vital signs reviewed: Yes - General General: Alert and oriented X 3, No acute distress - HEENT HEENT: PERRL - Neck Neck: Supple, no meningeal sign - Cardiac Cardiac: RRR - Respiratory Respiratory: Other (Diffuse end expiratory wheeze. Slightly increased work of breathing.) - Abdomen Abdomen: Normal bowel sounds, Soft, Non tender, Non distended - Derm Derm: Warm and dry - Extremities Extremities: No deformity - Neuro Neuro: Alert and oriented X 3 - Psych Psych: Normal mood, Normal affect Results - Vitals Vitals: Oxygen O2 Source [] trach O2 Source [] Mechanical ventilator O2 Source Nasal cannula Oxygen Flow Rate 4 - EKG (time done) 5:30 Other comments: Other comments (Rate 62, rhythm atrial paced, there is a nonspecific IVCD, and likely left ventricular hypertrophy. There is very slight discordant concave up ST elevation in V2 and V3 which is less than 1 mm in width and normal limits. There is no ST segment depression. QTc is read as 550, he appears to have a U wave.) - Labs Labs: Laboratory Tests 07/29/19 07/29/19 07/29/19 05:25 05:25 05:25 WBC 8.9 RBC 3.67 L Hgb 8.5 L Hct 28.8 L MCV 78.5 L MCH 23.2 L MCHC 29.5 L RDW 19.2 H Plt Count 311 MPV 9.6 Neut # (Auto) 7.5 H Lymph # (Auto) 0.6 L [place] # (Auto) 0.6 Eos # (Auto) 0.1 Baso # (Auto) 0.1 Absolute Nucleated RBC 0.00 Nucleated RBC % 0.0 PT INR Sodium 139 Potassium 2.6 L Chloride 103 Carbon Dioxide 27 Anion Gap 9.0 BUN 37 H Creatinine 1.6 H Estimated GFR (MDRD) 42 L Glucose 57 L* Calcium 7.7 L Magnesium Total Bilirubin 0.2 AST 28 ALT 23 Alkaline Phosphatase 62 Troponin I High Sens 1341.9 H* B-Natriuretic Peptide Total Protein 6.9 Albumin 3.3 Globulin 3.6 Albumin/Globulin Ratio 0.9 L Lipase 28 07/29/19 07/29/19 07/29/19 05:25 05:25 05:25 WBC RBC Hgb Hct MCV MCH MCHC RDW Plt Count MPV Neut # (Auto) Lymph # (Auto) [place] # (Auto) Eos # (Auto) Baso # (Auto) Absolute Nucleated RBC Nucleated RBC % PT 26.6 H INR 2.5 H Sodium Potassium Chloride Carbon Dioxide Anion Gap BUN Creatinine Estimated GFR (MDRD) Glucose Calcium Magnesium 1.4 L Total Bilirubin AST ALT Alkaline Phosphatase Troponin I High Sens B-Natriuretic Peptide 475 H Total Protein Albumin Globulin Albumin/Globulin Ratio Lipase - Rads (name of study) CXR Radiology: Other (Moderate pulmonary edema) PD MEDICAL DECISION MAKING - ED course ED course: On arrival patient is nontoxic-appearing, he is awake and alert, he is saturating well on 2 L nasal cannula, he does have a temperature of 34.2 C, his heart rate is normal but he is atrially paced. IV was inserted labs are drawn patient was placed on monitor. He was started on a duoneb and given IV methylprednisolone. EKG reveals an atrial paced rhythm with no convincing signs of acute ischemia. His CBC reveals a relatively stable anemia with his hemoglobin 8.5 most recently in hemoglobin in our system is 9.3, his INR is therapeutic at 2.5, does have a hypokalemia of 2.6, and has U waves present on his EKG consistent with this. His creatinine is 1.6 which is stable from his most recent value in our system from last month, and his high-sensitivity troponin returned at 1341, highly elevated. He is not having any chest pain, and in fact his breathing is improved, he is feeling much better at this time. His BNP is somewhat elevated at 475. His chest x-ray does show signs of pulmonary congestion, consistent with CHF. Infection was considered, given his low temperature, however given his normal white blood cell count, his lack of cough or obvious infectious source on his labs, I think that a CHF exacerbation and NSTEMI are more likely. He was given aspirin and started on heparin. He follows with Dr. 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 I spoke with Dr. Cam who accepted the patient at [facility], he will be transferred via ALS. He remained stable on a nasal cannula, I am holding off on furosemide at this time given his low potassium, he did get repleted with 40 mEq p.o. Pt's temperature, glucose (82), and vital signs are unremarkable at the time of transfer. Departure - Departure Disposition: 02 Transfer Acute Care Hosp Clinical Impression: NSTEMI (non-ST elevated myocardial infarction), Hypoglycemia, Hypokalemia Condition: Stable Discharge Date/Time: 07/29/19 11:06
[2019-07-29] MEDS ORDERED: IPRATROPIUM/ALBUTEROL 3 ML NEB INH STA (05:00)
[2019-07-29] MEDS ORDERED: methylPREDNISolone SUCCINATE 125 MG/2 ML VIAL IVP STA (05:00)
--- NOTE | 2019-07-29 05:26 | XRAY Report ---
Reason: shortness of breath Procedure Date: 07/29/2019 Accession Number: [id number] / [id number] Procedure: XR - Chest 1 View X-Ray CPT Code: 35452 Final Report FULL RESULT: EXAM: CHEST RADIOGRAPHY EXAM DATE: 07/29/2019 05:19 AM CLINICAL HISTORY: Shortness of breath. COMPARISON: CHEST 2 VIEW 07/17/2019 2:29 PM, CHEST 2 VIEW 06/13/2019 3:01 PM, CHEST 2 VIEW 04/25/2019 7:34 PM, CHEST 2 VIEW 03/05/2019 3:06 PM. TECHNIQUE: 1 view. FINDINGS: Lungs/Pleura: Diffuse hazy interstitial type abnormality is slightly progressed bilaterally. Left basilar airspace disease and consolidation has progressed. Small left-sided effusion. Peribronchial cuffing is noted. Mediastinum: Mild enlargement of the cardiac silhouette. Mild central pulmonary vascular congestion. Other: Prior median sternotomy. There is a left subclavian pacemaker device with the tips at the right atrium and right ventricle apex. IMPRESSION: Appearance of the chest could be secondary to moderate CHF, with progression from the prior study. Concurrent infection, aspiration, and/or atelectasis are also in the differential diagnosis. RADIA
[2019-07-29 05:33] LABS: BASOPHILS # (AUTO) 0.1 10^3/uL (0.0-0.1); BASOPHILS % (AUTO) 0.8 %; EOSINOPHILS # (AUTO) 0.1 10^3/uL (0.0-0.7); EOSINOPHILS % (AUTO) 1.3 %; HGB - HEMOGLOBIN 8.5 g/dL (14.0-18.0); LYMPHOCYTES # (AUTO) 0.6 10^3/uL (1.5-3.5); LYMPHOCYTES % (AUTO) 7.1 %; MEAN CORPUSCULAR HEMOGLOBIN 23.2 pg (27.0-31.0); MEAN CORPUSCULAR HGB CONC 29.5 g/dL (32.0-36.0); MEAN CORPUSCULAR VOLUME 78.5 fL (80.0-94.0); MEAN PLATELET VOLUME 9.6 fL (7.4-11.4); MONOCYTES # (AUTO) 0.6 10^3/uL (0.0-1.0); MONOCYTES % (AUTO) 6.6 %; NEUTROPHILS # (AUTO) 7.5 10^3/uL (1.5-6.6); NEUTROPHILS % (AUTO) 83.5 %; PLT - PLATELET COUNT 311 10^3/uL (130-450); RED BLOOD COUNT 3.67 10^6/uL (4.70-6.10); RED CELL DISTRIBUTION WIDTH 19.2 % (12.0-15.0); WHITE BLOOD COUNT 8.9 x10^3/uL (4.8-10.8)
[2019-07-29 05:52] LABS: ALBUMIN 3.3 g/dL (3.2-5.5); ALBUMIN/GLOBULIN RATIO 0.9 (1.0-2.2); BILIRUBIN,TOTAL 0.2 mg/dL (0.2-1.0); CALCIUM 7.7 mg/dL (8.5-10.3); CREATININE 1.6 mg/dL (0.6-1.2); TOTAL PROTEIN 6.9 g/dL (6.7-8.2)
[2019-07-29] MEDS ORDERED: ASPIRIN CHEW 81 MG TABLET PO STA (06:03)
[2019-07-29] MEDS ORDERED: POTASSIUM CHLORIDE 20 MEQ TABLET PO STA (06:14)
[2019-07-29 06:16] LABS: INR 2.5 (0.8-1.2); PT - PROTHROMBIN TIME 26.6 secs (9.9-12.6)
[2019-07-29] MEDS ORDERED: HEPARIN 5,000 UNIT/ML VIAL IVP STA (06:54)
[2019-07-29] MEDS ORDERED: HEPARIN 25000UNITS/500ML (D5W) 25,000 UNIT/500 ML BAG IV STA (06:54)
[2019-07-29 10:35] VITALS: BP 126/78
== END 2019-07-29 11:06 | disposition short-term general hospital (02) ==
LOC: EDUNIT# → ED 04:32
DX: I21.4 Non-ST elevation (NSTEMI) myocardial infarction (principal); E11.649 Type 2 diabetes mellitus with hypoglycemia without coma; E87.6 Hypokalemia; I13.0 Hypertensive heart and chronic kidney disease with heart failure and stage 1 through stage 4 chronic kidney disease, or unspecified chronic kidney disease; I50.9 Heart failure, unspecified; E11.22 Type 2 diabetes mellitus with diabetic chronic kidney disease; N18.3 Chronic kidney disease, stage 3 (moderate); Z79.4 Long term (current) use of insulin; D64.9 Anemia, unspecified; J44.9 Chronic obstructive pulmonary disease, unspecified; I48.0 Paroxysmal atrial fibrillation; Z79.01 Long term (current) use of anticoagulants; Z85.21 Personal history of malignant neoplasm of larynx; Z93.0 Tracheostomy status; Z95.0 Presence of cardiac pacemaker
CPT/HCPCS: 36415; 71045; 80053; 83690; 83735; 83880; 84484; 85025; 85610; 93005; 94640; 96374; 96375; 99284; A9270

== ENCOUNTER 2019-07-29 11:11 | Outpatient (CLI) | payer MEDICARE, OTHER | END 2019-07-29 11:12 | disposition short-term general hospital (02) | LOC: EMS 11:11 | PROVIDERS: ATTEND Surgery | DX: I21.4 Non-ST elevation (NSTEMI) myocardial infarction (principal) | CPT/HCPCS: A0425; A0426 ==

== ENCOUNTER 2019-08-06 13:50 | Outpatient (CLI) | payer MEDICARE, OTHER ==
[2019-08-06 18:30] LABS: BASOPHILS # (AUTO) 0.1 10^3/uL (0.0-0.1); BASOPHILS % (AUTO) 0.9 %; EOSINOPHILS # (AUTO) 0.4 10^3/uL (0.0-0.7); EOSINOPHILS % (AUTO) 3.2 %; HGB - HEMOGLOBIN 10.3 g/dL (14.0-18.0); LYMPHOCYTES % (AUTO) 8.1 %; MEAN CORPUSCULAR HGB CONC 28.8 g/dL (32.0-36.0); MEAN CORPUSCULAR VOLUME 79.9 fL (80.0-94.0); MEAN PLATELET VOLUME 10.6 fL (7.4-11.4); MONOCYTES # (AUTO) 0.9 10^3/uL (0.0-1.0); MONOCYTES % (AUTO) 7.6 %; NEUTROPHILS # (AUTO) 9.6 10^3/uL (1.5-6.6); NEUTROPHILS % (AUTO) 79.5 %; PLT - PLATELET COUNT 433 10^3/uL (130-450); RED BLOOD COUNT 4.48 10^6/uL (4.70-6.10); RED CELL DISTRIBUTION WIDTH 20.1 % (12.0-15.0); WHITE BLOOD COUNT 12.1 x10^3/uL (4.8-10.8)
[2019-08-06 18:36] LABS: CREATININE 1.7 mg/dL (0.6-1.2)
== END 2019-08-06 23:59 | disposition home or self-care (01) ==
LOC: LAB.N 13:50
PROVIDERS: ATTEND Family Medicine
DX: I48.91 Unspecified atrial fibrillation (principal); R06.09 Other forms of dyspnea; I50.9 Heart failure, unspecified
CPT/HCPCS: 36415; 80048; 83880; 85025; 85610

== ENCOUNTER 2019-08-13 08:00 | Outpatient (CLI) | payer MEDICARE, OTHER | END 2019-08-13 23:59 | disposition home or self-care (01) | LOC: LAB.N 08:00 | PROVIDERS: ATTEND Nurse Practitioner Gerontology | DX: I48.91 Unspecified atrial fibrillation (principal) | CPT/HCPCS: 85610 ==

== ENCOUNTER 2019-08-15 13:56 | Outpatient (CLI) | payer MEDICARE, OTHER ==
--- NOTE | 2019-08-17 02:10 | XRAY Report ---
Reason: PNEUMONIA Procedure Date: 08/15/2019 Accession Number: [id number] / [id number] Procedure: XR - Chest 2 View X-Ray CPT Code: 22692 Final Report FULL RESULT: EXAM: CHEST RADIOGRAPHY EXAM DATE: 08/15/2019 02:11 PM CLINICAL HISTORY: Chronic cough and shortness of breath. COMPARISON: CHEST 1 VIEW 07/29/2019 5:00 AM CHEST W/O 05/07/2019 9:35 AM. TECHNIQUE: 1 view. FINDINGS: Lungs/Pleura: Multisegmental opacity in the left lower lobe. Hyperinflation. Small left pleural effusion. No pneumothorax. Mediastinum: Mild cardiac enlargement. Status post median sternotomy. Other: Tracheostomy tube tip located in the mid trachea. Cardiac device with tips in the regions of the right atrial appendage and right ventricular apex. IMPRESSION: Left lower lobe atelectasis versus consolidation. Small left pleural effusion. Mild cardiomegaly. Hyperinflation which in part reflects emphysematous changes. RADIA
== END 2019-08-15 13:57 | disposition home or self-care (01) ==
LOC: DI 13:56
PROVIDERS: ATTEND Family Medicine
DX: J18.9 Pneumonia, unspecified organism (principal); I51.7 Cardiomegaly; J43.9 Emphysema, unspecified
CPT/HCPCS: 71046

== ENCOUNTER 2019-09-06 00:59 | Outpatient (CLI) | payer MEDICARE, OTHER | END 2019-09-06 01:00 | disposition critical access hospital (66) | LOC: EMS 00:59 | PROVIDERS: ATTEND Surgery | DX: R06.02 Shortness of breath (principal); R05 Cough | CPT/HCPCS: A0425; A0427 ==

== ENCOUNTER 2019-09-06 01:14 | Emergency (ER) | payer MEDICARE, OTHER ==
[2019-09-06 02:03] LABS: BASOPHILS # (AUTO) 0.1 10^3/uL (0.0-0.1); BASOPHILS % (AUTO) 0.6 %; EOSINOPHILS # (AUTO) 0.2 10^3/uL (0.0-0.7); HGB - HEMOGLOBIN 9.6 g/dL (14.0-18.0); LYMPHOCYTES # (AUTO) 0.7 10^3/uL (1.5-3.5); LYMPHOCYTES % (AUTO) 3.8 %; MEAN CORPUSCULAR HEMOGLOBIN 24.2 pg (27.0-31.0); MEAN CORPUSCULAR HGB CONC 28.7 g/dL (32.0-36.0); MEAN CORPUSCULAR VOLUME 84.1 fL (80.0-94.0); MEAN PLATELET VOLUME 9.1 fL (7.4-11.4); MONOCYTES # (AUTO) 1.1 10^3/uL (0.0-1.0); MONOCYTES % (AUTO) 5.9 %; NEUTROPHILS # (AUTO) 16.4 10^3/uL (1.5-6.6); NEUTROPHILS % (AUTO) 87.7 %; PLT - PLATELET COUNT 624 10^3/uL (130-450); RED BLOOD COUNT 3.97 10^6/uL (4.70-6.10); RED CELL DISTRIBUTION WIDTH 21.2 % (12.0-15.0); WHITE BLOOD COUNT 18.7 x10^3/uL (4.8-10.8)
[2019-09-06 02:09] LABS: PT - PROTHROMBIN TIME 64.4 secs (9.9-12.6)
--- NOTE | 2019-09-06 02:11 | XRAY Report ---
Reason: Shortness of breath Procedure Date: 09/06/2019 Accession Number: [id number] / [id number] Procedure: XR - Chest 1 View X-Ray CPT Code: 28266 Final Report FULL RESULT: EXAM: CHEST RADIOGRAPHY EXAM DATE: 09/06/2019 01:54 AM CLINICAL HISTORY: Shortness of breath. COMPARISON: CHEST 2 VIEW 08/15/2019 2:03 PM. TECHNIQUE: 1 view. FINDINGS: Lungs/Pleura: Moderate interstitial and airspace opacities throughout both lungs. Small bilateral pleural effusions. No pneumothorax. Mediastinum: Mild cardiomegaly. Other: Cardiac device with tips in the regions of the right atrial appendage and right ventricular apex. IMPRESSION: Interstitial and airspace opacities throughout both lungs, which may reflect moderate pulmonary edema. Small bilateral pleural effusions. Mild cardiomegaly. RADIA
[2019-09-06 02:16] LABS: ALBUMIN 3.3 g/dL (3.2-5.5); ALBUMIN/GLOBULIN RATIO 0.7 (1.0-2.2); BILIRUBIN,TOTAL 0.7 mg/dL (0.2-1.0); CALCIUM 8.5 mg/dL (8.5-10.3); CREATININE 1.8 mg/dL (0.6-1.2); TOTAL PROTEIN 8.2 g/dL (6.7-8.2)
[2019-09-06 02:17] LABS: INR 6.3 (0.8-1.2)
[2019-09-06] MEDS ORDERED: CEFEPIME 2 GM in SODIUM CHLORIDE 0.9% MINIBAG 100 ML IV STA (02:34)
[2019-09-06] MEDS ORDERED: FUROSEMIDE 100 MG/10 ML VIAL IVP STA (02:39)
--- NOTE | 2019-09-06 03:13 | ED Physician Documentation ---
History of Present Illness - Stated complaint Stated Complaint: SOA, COUGH X 5 DAYS - Chief complaint Chief Complaint: Resp - Additonal information Additional information: This is a 73-year-old male with a history of heart failure, COPD, stage III CKD, type 2 diabetes on insulin, atrial fibrillation, who was brought in [facility] due to shortness of breath. Patient states that he is on 5 L nasal cannula at baseline, tonight he went outside to have a smoke, and at around 9 PM he began feeling very short of breath. He tried 3 duo nebs at home without improvement so he called EMS. They found him hypoxic and in respiratory distre ss, they put him on a nonrebreather and his oxygen saturation corrected to the high 80s to mid 90s. He denies any chest pain, just states that his breathing feels tight. 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 He denies fever, states his breathing has been at his baseline until 9 PM when it suddenly worsened. His most recent echocardiogram in our system on 11/01/2018 showed ejection fraction of 25% with cor pulmonale, mild aortic stenosis, and mild to moderate mitral regurgitation. He was hospitalized for heart failure exacerbation within the last month at [facility]. His clinical social work aide is Dr. Kahn Review of Systems Unable to obtain: Other (Limited by respiratory distress and tracheostomy) Constitutional: denies: Fever Cardiac: denies: Chest pain / pressure Respiratory: reports: Dyspnea GI: denies: Abdominal Pain Skin: denies: Rash Neurologic: denies: Generalized weakness PD PAST MEDICAL HISTORY - Past Medical History Cardiovascular: Congestive heart failure, Hypertension Respiratory: COPD, Other Neuro: None Endocrine/Autoimmune: Type 2 diabetes GI: GERD : None HEENT: Other Psych: None Musculoskeletal: Osteoarthritis Derm: None, Other drug resistant infections - Past Surgical History Past Surgical History: Yes General: Other Cardiovascular: CABG HEENT: Cataracts, Tracheostomy - Present Medications Home Medications: Ambulatory Orders Medication Instructions Recorded Confirmed Tamsulosin [Flomax] 0.4 mg PO DAILY #30 capsule 06/21/18 05/27/19 Amiodarone HCl 200 mg PO DAILY 09/18/18 05/27/19 Fluticasone/Salmeterol [Advair Hfa 2 puffs INH BID 09/18/18 05/27/19 230-21 Mcg Inhaler] SITagliptin [Januvia] 100 mg PO DAILY 09/18/18 05/27/19 Trazodone HCl 100 mg PO QPM PRN 09/18/18 05/27/19 glipiZIDE [Glipizide] 20 mg PO 0730,1630 09/18/18 05/27/19 Metoprolol Succinate [Toprol Xl] 25 mg PO BID #60 tablet 09/21/18 05/27/19 Montelukast [Singulair] 10 mg PO QPM #30 tablet 09/21/18 05/27/19 Insulin Glargine [Lantus Solostar] 16 unit SUBQ BID 11/01/18 05/27/19 Sacubitril/Valsartan [Entresto 24 1 each PO BID #60 tablet 11/02/18 05/27/19 mg-26 mg Tablet] Furosemide 40 mg PO 0800,1200 12/08/18 05/27/19 Ipratropium/Albuterol Sulfate 3 ml INH QID 12/08/18 05/27/19 [Iprat-Albut 0.5-3(2.5) mg/3 ml] Losartan Potassium 50 mg PO DAILY 12/08/18 05/27/19 Magnesium Oxide 800 mg PO DAILY 12/08/18 05/27/19 Mecobal/Levomefolat Ca/B6 Phos 1 tab PO BID 12/08/18 05/27/19 [[id number] Tablet] Spironolactone [Aldactone] 12.5 mg PO BID 12/08/18 05/27/19 Warfarin Sodium 5 mg PO DAILY 12/08/18 05/27/19 lisinopriL [Zestril] 2.5 mg PO BID 12/08/18 05/27/19 predniSONE [Deltasone] 40 mg PO DAILYWM #4 tablet 12/10/18 05/27/19 - Allergies Allergies/Adverse Reactions: Allergies Allergy/AdvReac Type Severity Reaction Status Date / Time No Known Drug Allergies Allergy Verified 09/06/19 01:27 - Social History Does the pt smoke?: No Smoking Status: Current every day smoker Does the pt drink ETOH?: No Does the pt have substance abuse?: No - Immunizations Immunizations are current?: Yes - POLST Patient has POLST: No POLST Status: DNR PD ED PE NORMAL - Vitals Vital signs reviewed: Yes - General General: Alert and oriented X 3, Other (In respiratory distress, sitting up, tachypneic, appears uncomfortable) - HEENT HEENT: PERRL, Other (Tracheostomy in place, no signs of obstruction.) - Neck Neck: Supple, no meningeal sign - Cardiac Cardiac: Other (Tachycardic, regular rhythm.) - Respiratory Respiratory: Other (Bibasilar crackles, somewhat reduced air movement bilaterally, tachypnea) - Abdomen Abdomen: Soft, Non tender, Non distended - Derm Derm: Warm and dry - Extremities Extremities: No deformity - Neuro Neuro: Alert and oriented X 3 - Psych Psych: Normal mood, Normal affect Results - Vitals Vitals: Vital Signs - 24 hr 09/06/19 09/06/19 09/06/19 01:24 02:30 03:42 Temperature 36.2 C L Heart Rate 104 H 103 H 97 Respiratory 24 20 22 Rate Blood Pressure 125/67 113/64 108/79 O2 Saturation 89 L 97 97 09/06/19 04:30 Temperature Heart Rate 94 Respiratory 20 Rate Blood Pressure 105/50 L O2 Saturation 96 Oxygen O2 Source [] trach O2 Source [] Mechanical ventilator O2 Source Non-rebreather mask Oxygen Flow Rate 15 - EKG (time done) 1:32 Other comments: Other comments (Time 1:32, rate 103, rhythm sinus, there is poor R wave progression, there is ST depression in the lateral leads which is new from 3/10. There is [address] depression in V1 through V3, which is discordant with the QRS complex and in a similar pattern seen on past EKG.) - Labs Labs: Laboratory Tests 09/06/19 09/06/19 09/06/19 01:50 01:50 01:50 WBC 18.7 H RBC 3.97 L Hgb 9.6 L Hct 33.4 L MCV 84.1 MCH 24.2 L MCHC 28.7 L RDW 21.2 H Plt Count 624 H MPV 9.1 Neut # (Auto) 16.4 H Lymph # (Auto) 0.7 L Long # (Auto) 1.1 H Eos # (Auto) 0.2 Baso # (Auto) 0.1 Absolute Nucleated RBC 0.00 Nucleated RBC % 0.0 PT 64.4 H INR 6.3 H* Sodium 138 Potassium 4.0 Chloride 99 L Carbon Dioxide 27 Anion Gap 12.0 BUN 43 H Creatinine 1.8 H Estimated GFR (MDRD) 37 L Glucose 207 H Lactic Acid Calcium 8.5 Total Bilirubin 0.7 AST 26 ALT 29 Alkaline Phosphatase 97 Troponin I High Sens B-Natriuretic Peptide Total Protein 8.2 Albumin 3.3 Globulin 4.9 H Albumin/Globulin Ratio 0.7 L Lipase 25 09/06/19 09/06/19 09/06/19 01:50 01:50 03:03 WBC RBC Hgb Hct MCV MCH MCHC RDW Plt Count MPV Neut # (Auto) Lymph # (Auto) Long # (Auto) Eos # (Auto) Baso # (Auto) Absolute Nucleated RBC Nucleated RBC % PT INR Sodium Potassium Chloride Carbon Dioxide Anion Gap BUN Creatinine Estimated GFR (MDRD) Glucose Lactic Acid 0.9 Calcium Total Bilirubin AST ALT Alkaline Phosphatase Troponin I High Sens 23.8 H* B-Natriuretic Peptide 331 H Total Protein Albumin Globulin Albumin/Globulin Ratio Lipase - Rads (name of study) CXR Radiology: Other (Interstitial and airspace opacities throughout both lungs which may reflect moderate pulmonary edema, small bilateral pleural effusions, mild cardiomegaly) PD MEDICAL DECISION MAKING - ED course Complexity details: considered differential (ACS, pulmonary edema, pneumonia, COVID-19, pneumothorax, dysrhythmia, pulmonary embolism) ED course: On arrival patient is mildly hypoxic and is in respiratory distress, on a nonrebreather with some rest he improves his saturations to the 90s. He already tried 3 duo nebs at home without improvement, and I do not hear significant wheezing on auscultation, COPD exacerbation is possible but less likely. Chest x-ray shows pulmonary edema.His labs show a leukocytosis of 18.7, I am sure if he is on steroids currently, he did not has not have a fever but given his shortness of breath and his infiltrates, pneumonia is possible we will cover him with cefepime. Blood cultures were drawn. His CMP shows a mildly elevated creatinine at 1.8, his baseline appears to be 1.6 in our records. His INR is 6.3 which is supratherapeutic, and makes pulmonary embolism unlikely. Additionally, his work of breathing has improved during his stay here, and after 60 mg of Lasix he does have good urine output and he continues to have improved work of breathing. He is able to speak in short sentences. He states that the shortness of breath came on suddenly, which favors flash pulmonary edema, and makes COVID-19 less likely, we did swab him for the virus. His EKG shows lateral ST depressions which are new from prior EKG, and show slight anterior elevations, however these are discordant with the QRS, similar in pattern to his previous EKG, and patient has no chest pain, making ACS less likely. His high-sensitivity troponin is 23, which is slightly elevated, but could be consistent with heart failure or mild demand ischemia as well. Given patient continues to have no chest pain his symptoms are improving, ACS is less likely at this time. His past hospitalizations have been at [facility], and he states he follows with cardiology there as well, after discussion with the patient about admission versus transfer, he would prefer transfer to [facility] and I think this is reasonable given the degree of his heart failure and being established with care team was there. Patient was transferred via ALS, at the time of transfer he was stable on a nonrebreather. Departure - Departure Disposition: [facility] DC/Xfer Clinical Impression: Heart failure Qualifiers: Heart failure type: unspecified Heart failure chronicity: acute on chronic Qualified Code(s): I50.9 - Heart failure, unspecified Leukocytosis Qualifiers: Leukocytosis type: unspecified Qualified Code(s): D72.829 - Elevated white blood cell count, unspecified Discharge Date/Time: 09/06/19 04:54
[2019-09-06 04:45] VITALS: BP 105/50
== END 2019-09-06 04:54 | disposition short-term general hospital (02) ==
LOC: EDUNIT# → ED 01:14
DX: I13.0 Hypertensive heart and chronic kidney disease with heart failure and stage 1 through stage 4 chronic kidney disease, or unspecified chronic kidney disease (principal); I50.9 Heart failure, unspecified; D72.829 Elevated white blood cell count, unspecified; R79.89 Other specified abnormal findings of blood chemistry; E11.22 Type 2 diabetes mellitus with diabetic chronic kidney disease; N18.3 Chronic kidney disease, stage 3 (moderate); F17.200 Nicotine dependence, unspecified, uncomplicated; Z79.4 Long term (current) use of insulin
CPT/HCPCS: 36415; 71045; 80053; 83605; 83690; 83880; 84484; 85025; 85610; 87040; 93005; 96365; 96375; 99285; J1940; U0002; 81599

== ENCOUNTER 2019-09-06 04:49 | Outpatient (CLI) | payer MEDICARE, OTHER | END 2019-09-06 04:50 | disposition short-term general hospital (02) | LOC: EMS 04:49 | PROVIDERS: ATTEND Surgery | DX: I50.1 Left ventricular failure, unspecified (principal) | CPT/HCPCS: A0425; A0426 ==